=== PATIENT | male | born 1950 | race Caucasian/White ===

== ENCOUNTER → 2016-11-25 | Outpatient (CLI) | payer OTHER ==
[2016-11-25 11:00] LABS: ANION GAP 5 MEQ/L (8-16); BLOOD UREA NITROGEN 14 MG/DL (7-18); CALCIUM LEVEL 8.8 MG/DL (8.8-10.2); CARBON DIOXIDE LEVEL 35 MEQ/L (21-32); CHLORIDE LEVEL 103 MEQ/L (98-107); FREE T4 1.16 NG/DL (0.76-1.46); GLOMERULAR FILTRATION RATE > 60.0 (>49); GLUCOSE, FASTING 80 MG/DL (80-110); POTASSIUM SERUM 3.8 MEQ/L (3.5-5.1); SODIUM LEVEL 143 MEQ/L (136-145)
[2016-11-25 11:15] LABS: CORTISOL BASELINE 21.5 UG/DL (4.3-22.4)
== END ==
LOC: M LAB 09:46
PROVIDERS: ATTEND Internal Medicine Endocrinology, Diabetes & Metabolism
DX: E23.0 Hypopituitarism (principal)

== ENCOUNTER → 2017-05-28 | Outpatient (CLI) | payer OTHER ==
[~2017-05-28] MED LIST: ALPR2TAB3 PO; ANDR1.62 TD; ASPI81TA85 PO; B-12100T2 PO; BUPR10TASR PO; DESM1TAB4 PO; DHEA50CA PO; HYDR-3291 PO; KLON1TAB PO; KRIL1CAP6 PO; LEVO10VL PO; LIPI20TA PO
[2017-05-28 09:46] LABS: ANION GAP 9 MEQ/L (8-16); BLOOD UREA NITROGEN 16 MG/DL (7-18); CARBON DIOXIDE LEVEL 26 MEQ/L (21-32); CHLORIDE LEVEL 105 MEQ/L (98-107); CREATININE FOR GFR 1.19 MG/DL (0.70-1.30); FREE T4 1.21 NG/DL (0.76-1.46); GLOMERULAR FILTRATION RATE > 60.0 (>49); GLUCOSE, FASTING 98 MG/DL (80-110); POTASSIUM SERUM 4.5 MEQ/L (3.5-5.1); SODIUM LEVEL 140 MEQ/L (136-145)
== END ==
LOC: M LAB 08:11
PROVIDERS: ATTEND Internal Medicine Endocrinology, Diabetes & Metabolism
DX: E23.0 Hypopituitarism (principal)

== ENCOUNTER → 2017-06-28 | Outpatient (REF) | payer OTHER | LOC: M LAB REF 17:43 | PROVIDERS: ATTEND Surgery | DX: D22.62 Melanocytic nevi of left upper limb, including shoulder (principal) ==

== ENCOUNTER → 2017-07-01 | Outpatient (REF) | payer OTHER | LOC: M LAB REF 12:02 | PROVIDERS: ATTEND Family Medicine | DX: E29.1 Testicular hypofunction (principal) ==

== ENCOUNTER 2017-08-09 04:22 | Emergency (ER) | payer OTHER ==
[~2017-08-09] VITALS: Ht 162.6 cm; Wt 77.0 kg
[2017-08-09] MEDS ORDERED: ALPR2TAB3 PO (04:39)
[2017-08-09] MEDS ORDERED: ONDANSETRON 4MG/2ML VIAL (J2405) IV ONE (04:45)
[2017-08-09] MEDS ORDERED: KRIL1CAP6 PO (04:48)
[2017-08-09] MEDS ORDERED: BUPR10TASR PO (04:48)
[2017-08-09] MEDS ORDERED: B-12100T2 PO (04:48)
[2017-08-09] MEDS ORDERED: LEVO10VL PO (04:48)
[2017-08-09] MEDS ORDERED: ASPI81TA85 PO (04:48)
[2017-08-09] MEDS ORDERED: DESM1TAB4 PO (04:48)
[2017-08-09] MEDS ORDERED: ANDR1.62 TD (04:48)
[2017-08-09] MEDS ORDERED: HYDR-3291 PO ×2 (04:48)
[2017-08-09] MEDS ORDERED: LIPI20TA PO (04:48)
[2017-08-09] MEDS ORDERED: KLON1TAB PO (04:48)
[2017-08-09] MEDS ORDERED: DHEA50CA PO (04:48)
[2017-08-09 04:59] LABS: BASO % 0.1 % (0.0-1.0); IMMATURE GRANULOCYTE % 0.5 % (0-0); LYMPH # 1.1 10^3/uL (1.5-4.5); LYMPH % 12.2 % (24.0-44.0); MEAN CORPUSCULAR HEMOGLOBIN 30.7 pg (27.0-33.0); MEAN CORPUSCULAR VOLUME 87.7 fl (80.0-96.0); MONO # 0.1 10^3/uL (0.0-0.8); MONO % 1.5 % (0.0-5.0); NEUTROPHILS % 85.7 % (36.0-66.0); PLATELET COUNT, AUTOMATED 280 10^3/uL (150-450); RED CELL DISTRIBUTION WIDTH 12.4 % (11.5-14.5); WHITE BLOOD COUNT 9.3 10^3/uL (4.0-10.0)
[2017-08-09] MEDS: MORPHINE 4 MG/ML 1ML SYRINGE IV PRN ×2 (04:59→05:35)
[2017-08-09 05:14] LABS: INR 0.96
[2017-08-09 05:22] LABS: ANION GAP 10 MEQ/L (8-16); BLOOD UREA NITROGEN 19 MG/DL (7-18); CALCIUM LEVEL 8.7 MG/DL (8.8-10.2); CARBON DIOXIDE LEVEL 27 MEQ/L (21-32); CHLORIDE LEVEL 106 MEQ/L (98-107); CREATININE FOR GFR 1.14 MG/DL (0.70-1.30); GLOMERULAR FILTRATION RATE > 60.0 (>49); GLUCOSE, FASTING 163 MG/DL (80-110); POTASSIUM SERUM 3.7 MEQ/L (3.5-5.1); SODIUM LEVEL 143 MEQ/L (136-145)
[2017-08-09] MEDS ORDERED: NS 1,000 ML IV ONE (05:30)
[2017-08-09] MEDS ORDERED: HYDROmorphone HCL 1 MG/ML SYRINGE (J1170) IV PRN (06:00)
[2017-08-09] MEDS ORDERED: METOCLOPRAMIDE INJ 10MG/2ML VIAL (J2765) IV ONE (06:00)
[2017-08-09] MEDS ORDERED: diphenhydrAMINE INJ 50MG/ML VIAL (J1200) IV ONE (06:00)
[2017-08-09] MEDS ORDERED: KETOROLAC 30 MG/ML VIAL (J1885) IV ONE (06:00)
[2017-08-09] MEDS ORDERED: dexameTHASONE 20 MG/5 ML VIAL (J1100) IV ONE (06:00)
[2017-08-09] MEDS ORDERED: OXYCODONE/APAP 5MG/325MG(BULK FOR ED) 1 TABLET PO ONE (07:00)
--- NOTE | 2017-08-09 07:21 | REPUSA ---
CLINICAL HISTORY: Headaches. Recent sinus surgery. TECHNIQUE: Multiple axial brain CT scan sections were obtained from base to vertex without contrast a dministration. COMMENTS: The study shows normal configuration of sella turcica. There are no intra or extra-axial collections. There is no mass effect or midline shift. There is no evidence of hematoma formation. No hydrocephal us is present. No abnormal calcifications are noted. No significant abnormalities are seen either in the posterior fossa or supratentorial compartment. The sinuses and mastoid air cells are patent. IMPRESSION: No evidence of acute intracranial pathology. Thank you for your kind referral of this patient.
[2017-08-09 07:26] VITALS: BP 111/55
== END 2017-08-09 07:28 | disposition home or self-care (01) ==
LOC: M ED 04:22
DX: R51 Headache (principal); Z79.82 Long term (current) use of aspirin; Z79.899 Other long term (current) drug therapy; Z88.0 Allergy status to penicillin
CPT/HCPCS: 70450; 80048; 85025; 85610; 85730; 96374; 96375; 99284; J1100; J1170; J1200; J1885; J2405; J2765

== ENCOUNTER 2017-10-28 17:02 | Emergency (ER) | payer OTHER, MEDICARE ==
[2017-10-28] MEDS: OXYCODONE/APAP 5MG/325MG(BULK FOR ED) 1 TABLET PO (20:53)
== END 2017-10-28 21:02 | disposition home or self-care (01) ==
LOC: M ED 17:02
DX: R51 Headache (principal); I10 Essential (primary) hypertension; E03.9 Hypothyroidism, unspecified; F41.9 Anxiety disorder, unspecified; F32.9 Major depressive disorder, single episode, unspecified; Z86.018 Personal history of other benign neoplasm; E78.00 Pure hypercholesterolemia, unspecified; Z79.82 Long term (current) use of aspirin; Z79.899 Other long term (current) drug therapy; Z88.0 Allergy status to penicillin
CPT/HCPCS: 70450

== ENCOUNTER → 2017-11-12 | Outpatient (CLI) | payer OTHER ==
[2017-11-12 11:14] LABS: HEMATOCRIT 48.2 % (42.0-52.0); HEMOGLOBIN 16.5 g/dl (14.0-18.0); MEAN CORPUSCULAR HGB CONC 34.2 g/dl (32.0-36.5); MEAN CORPUSCULAR VOLUME 87.6 fl (80.0-96.0); PLATELET COUNT, AUTOMATED 334 10^3/uL (150-450); RED CELL DISTRIBUTION WIDTH 12.7 % (11.5-14.5); WHITE BLOOD COUNT 7.9 10^3/uL (4.0-10.0)
[2017-11-12 11:56] LABS: ALBUMIN 3.9 GM/DL (3.2-5.2); ALBUMIN/GLOBULIN RATIO 1.56 (1.00-1.93); ALKALINE PHOSPHATASE 115 U/L (45-117); ALT/SGPT 27 U/L (12-78); ANION GAP 7 MEQ/L (8-16); AST/SGOT 13 U/L (7-37); BILIRUBIN,TOTAL 0.5 MG/DL (0.2-1.0); BLOOD UREA NITROGEN 18 MG/DL (7-18); CALCIUM LEVEL 9.3 MG/DL (8.8-10.2); CARBON DIOXIDE LEVEL 34 MEQ/L (21-32); CHLORIDE LEVEL 102 MEQ/L (98-107); CREATININE FOR GFR 1.19 MG/DL (0.70-1.30); GLOMERULAR FILTRATION RATE > 60.0 (>49); GLUCOSE, FASTING 105 MG/DL (70-100); POTASSIUM SERUM 3.9 MEQ/L (3.5-5.1); SODIUM LEVEL 143 MEQ/L (136-145); TOTAL PROTEIN 6.4 GM/DL (6.4-8.2)
== END ==
LOC: M LAB 09:18
DX: C7B.8 Other secondary neuroendocrine tumors (principal)
CPT/HCPCS: 80053

== ENCOUNTER → 2017-11-12 | Outpatient (CLI) | payer OTHER ==
[2017-11-14 10:10] LABS: CORTISOL AM 7.4 UG/DL (4.3-22.4)
[2017-11-16 00:06] LABS: ADRENOCORTICOTROPHIC HORMONE 74.6 pg/mL (7.2-63.3)
== END ==
LOC: M LAB 09:15
DX: E23.0 Hypopituitarism (principal)
CPT/HCPCS: 82533

== ENCOUNTER → 2017-12-08 | Outpatient (CLI) | payer OTHER ==
[2017-12-08 09:40] LABS: ANION GAP 5 MEQ/L (8-16); BLOOD UREA NITROGEN 19 MG/DL (7-18); CALCIUM LEVEL 8.5 MG/DL (8.8-10.2); CARBON DIOXIDE LEVEL 35 MEQ/L (21-32); CHLORIDE LEVEL 104 MEQ/L (98-107); CREATININE FOR GFR 1.06 MG/DL (0.70-1.30); FREE T4 0.82 NG/DL (0.76-1.46); GLOMERULAR FILTRATION RATE > 60.0 (>49); GLUCOSE, FASTING 93 MG/DL (70-100); POTASSIUM SERUM 3.8 MEQ/L (3.5-5.1); SODIUM LEVEL 144 MEQ/L (136-145)
[2017-12-08 09:47] LABS: TESTOSTERONE 511 NG/DL (241-827)
== END ==
LOC: M LAB 08:55
DX: E23.0 Hypopituitarism (principal)

== ENCOUNTER 2018-04-09 08:53 | Emergency (ER) | payer OTHER ==
[2018-04-09] MEDS: ONDANSETRON 4MG/2ML VIAL (J2405) IV ×2 (09:48→11:04)
[2018-04-09] MEDS: METOCLOPRAMIDE INJ 10MG/2ML VIAL (J2765) IV (09:50)
[2018-04-09] MEDS: KETOROLAC 30 MG/ML VIAL (J1885) IV (09:50)
[2018-04-09] MEDS: NS 1,000 ML IV (09:51)
[2018-04-09] MEDS: diphenhydrAMINE INJ 50MG/ML VIAL (J1200) IM (09:58)
[2018-04-09] MEDS: diphenhydrAMINE INJ 50MG/ML VIAL (J1200) IV (10:01)
[2018-04-09] MEDS: DOXYCYCLINE HYCLATE 100 MG TAB PO (10:45)
[2018-04-09] MEDS: MORPHINE 4 MG/ML 1ML VIAL/SYRINGE (J2270) IV (11:04)
== END 2018-04-09 11:53 | disposition home or self-care (01) ==
LOC: M ED 08:53
DX: R51 Headache (principal); J01.90 Acute sinusitis, unspecified; Z88.0 Allergy status to penicillin; Z79.899 Other long term (current) drug therapy
CPT/HCPCS: J2270

== ENCOUNTER 2018-04-30 02:55 | Emergency (ER) | payer OTHER ==
[2018-04-30] MEDS: KETOROLAC 30 MG/ML VIAL (J1885) IV (03:30)
[2018-04-30] MEDS: diphenhydrAMINE INJ 50MG/ML VIAL (J1200) IV (03:30)
[2018-04-30] MEDS: METOCLOPRAMIDE INJ 10MG/2ML VIAL (J2765) IV (03:30)
[2018-04-30] MEDS: NS 1,000 ML IV (03:30)
[2018-04-30] MEDS: HYDROMORPHONE HCL 0.5 MG/ 0.5 ML SYRINGE (J1170 PER 1) IV (04:15)
== END 2018-04-30 06:40 | disposition home or self-care (01) ==
LOC: M ED 02:55
DX: R51 Headache (principal); G43.909 Migraine, unspecified, not intractable, without status migrainosus; Z79.82 Long term (current) use of aspirin; Z79.899 Other long term (current) drug therapy; Z88.0 Allergy status to penicillin
CPT/HCPCS: J1200

== ENCOUNTER 2018-05-10 15:46 | Emergency (ER) | payer OTHER ==
[2018-05-10] MEDS: METOCLOPRAMIDE INJ 10MG/2ML VIAL (J2765) IV (16:41)
[2018-05-10] MEDS: NS 1,000 ML IV (16:41)
[2018-05-10] MEDS: HYDROMORPHONE HCL 0.5 MG/ 0.5 ML SYRINGE (J1170 PER 1) IV (16:41)
== END 2018-05-10 17:39 | disposition home or self-care (01) ==
LOC: M ED 15:46
DX: R51 Headache (principal); D44.3 Neoplasm of uncertain behavior of pituitary gland; H57.11 Ocular pain, right eye; Z88.0 Allergy status to penicillin; Z79.899 Other long term (current) drug therapy; Z79.82 Long term (current) use of aspirin
CPT/HCPCS: J2765

== ENCOUNTER → 2018-06-05 | Outpatient (REF) | payer OTHER ==
[2018-06-05 16:17] LABS: ANION GAP 7 MEQ/L (8-16); BLOOD UREA NITROGEN 25 MG/DL (7-18); CALCIUM LEVEL 8.8 MG/DL (8.8-10.2); CARBON DIOXIDE LEVEL 31 MEQ/L (21-32); CHLORIDE LEVEL 109 MEQ/L (98-107); CREATININE FOR GFR 1.21 MG/DL (0.70-1.30); FREE T4 0.79 NG/DL (0.76-1.46); GLOMERULAR FILTRATION RATE > 60.0 (>49); GLUCOSE, FASTING 122 MG/DL (70-100); POTASSIUM SERUM 4.2 MEQ/L (3.5-5.1); SODIUM LEVEL 147 MEQ/L (136-145)
[2018-06-05 16:23] LABS: TESTOSTERONE 182 NG/DL (241-827)
== END ==
LOC: M LABDRAW1 14:21
DX: E23.0 Hypopituitarism (principal)

== ENCOUNTER → 2018-07-24 | Outpatient (CLI) | payer OTHER ==
[2018-07-24 11:09] LABS: ANION GAP 5 MEQ/L (8-16); BLOOD UREA NITROGEN 13 MG/DL (7-18); CALCIUM LEVEL 8.6 MG/DL (8.8-10.2); CARBON DIOXIDE LEVEL 34 MEQ/L (21-32); CHLORIDE LEVEL 105 MEQ/L (98-107); CREATININE FOR GFR 1.05 MG/DL (0.70-1.30); GLOMERULAR FILTRATION RATE > 60.0 (>49); GLUCOSE, FASTING 87 MG/DL (70-100); POTASSIUM SERUM 3.9 MEQ/L (3.5-5.1); SODIUM LEVEL 144 MEQ/L (136-145)
[2018-07-24 12:09] LABS: OSMOLALITY SERUM 294 MOSM/KG (280-301)
== END ==
LOC: M LAB 09:34
DX: E03.9 Hypothyroidism, unspecified (principal)
CPT/HCPCS: 83930

== ENCOUNTER → 2018-08-23 | Outpatient (CLI) | payer OTHER ==
[2018-08-23 17:23] LABS: BLOOD UREA NITROGEN 18 MG/DL (7-18)
[2018-08-23 17:23] LABS: CREATININE FOR GFR 1.13 MG/DL (0.70-1.30); GLOMERULAR FILTRATION RATE > 60.0 (>49)
== END ==
LOC: M LAB 15:59
DX: D35.2 Benign neoplasm of pituitary gland (principal)
CPT/HCPCS: 82565

== ENCOUNTER → 2018-11-18 | Outpatient (CLI) | payer OTHER ==
[~2018-11-18] MED LIST changes: +AFRI0.056; +BUSP30TA PO; +CLAR1TAB2 PO; +DESM0.1T2 PO; -DESM1TAB4 PO; +DOXY100C37 PO; +EXCETAB81 PO; +IBUP80TA PO; +LIOT25TA2 PO; +LISI10TA2; +LYRI150C PO; +PRIS100T PO; +RANI150T PO; +TRAM50TA2 PO; +ZOFR4TAB14 PO
[2018-11-18 13:17] LABS: BLOOD UREA NITROGEN 17 MG/DL (7-18); CALCIUM LEVEL 8.9 MG/DL (8.8-10.2); CARBON DIOXIDE LEVEL 30 MEQ/L (21-32); CHLORIDE LEVEL 105 MEQ/L (98-107); CREATININE FOR GFR 1.16 MG/DL (0.70-1.30); GLOMERULAR FILTRATION RATE > 60.0 (>49); GLUCOSE, FASTING 89 MG/DL (70-100); POTASSIUM SERUM 4.4 MEQ/L (3.5-5.1); SODIUM LEVEL 141 MEQ/L (136-145)
[2018-11-20 09:34] LABS: TESTOSTERONE 561 NG/DL (241-827)
== END ==
LOC: M LAB 12:31
PROVIDERS: ATTEND Internal Medicine Endocrinology, Diabetes & Metabolism
DX: E03.9 Hypothyroidism, unspecified (principal)

== ENCOUNTER → 2018-12-07 | Outpatient (CLI) | payer OTHER ==
[2018-12-07 15:20] LABS: BLOOD UREA NITROGEN 27 MG/DL (7-18); CREATININE FOR GFR 1.25 MG/DL (0.70-1.30); GLOMERULAR FILTRATION RATE > 60.0 (>49)
== END ==
LOC: M LAB 14:25
PROVIDERS: ATTEND Neurological Surgery
DX: D35.2 Benign neoplasm of pituitary gland (principal)

== ENCOUNTER → 2019-04-07 | Outpatient (CLI) | payer OTHER ==
[~2019-04-07] MED LIST changes: +D-50CAP PO; -HYDR-3291 PO; +HYDR-4513 PO; +ROXI1TAB2 PO; +VIAG100T PO
== END ==
LOC: M LAB 13:42
PROVIDERS: ATTEND Internal Medicine
DX: E87.1 Hypo-osmolality and hyponatremia (principal)

== ENCOUNTER → 2019-04-08 | Outpatient (CLI) | payer OTHER | LOC: M LAB 13:11 | PROVIDERS: ATTEND Internal Medicine | DX: E87.1 Hypo-osmolality and hyponatremia (principal); B34.9 Viral infection, unspecified ==

== ENCOUNTER → 2019-04-23 | Outpatient (CLI) | payer OTHER ==
[2019-04-23 16:49] LABS: HEMATOCRIT 42.8 % (42.0-52.0); HEMOGLOBIN 14.9 g/dl (13.5-17.5); MEAN CORPUSCULAR HEMOGLOBIN 30.2 pg (27.0-33.0); MEAN CORPUSCULAR HGB CONC 34.8 g/dl (32.0-36.5); MEAN CORPUSCULAR VOLUME 86.8 fl (80.0-96.0); PLATELET COUNT, AUTOMATED 144 10^3/uL (150-450); RED BLOOD COUNT 4.93 10^6/uL (4.30-6.10); WHITE BLOOD COUNT 9.6 10^3/uL (4.0-10.0)
[2019-04-23 17:12] LABS: CALCIUM LEVEL 8.5 MG/DL (8.8-10.2); CREATININE FOR GFR 1.49 MG/DL (0.70-1.30); FREE T4 0.84 NG/DL (0.76-1.46); GLOMERULAR FILTRATION RATE 50.1 (>49)
== END ==
LOC: M LAB 16:13
PROVIDERS: ATTEND Internal Medicine Endocrinology, Diabetes & Metabolism
DX: E03.9 Hypothyroidism, unspecified (principal)

== ENCOUNTER → 2019-04-30 | Outpatient (REF) | payer OTHER ==
[2019-04-30 12:30] LABS: BLOOD UREA NITROGEN 40 MG/DL (7-18); CALCIUM LEVEL 9.4 MG/DL (8.8-10.2); CARBON DIOXIDE LEVEL 33 MEQ/L (21-32); CHLORIDE LEVEL 97 MEQ/L (98-107); CREATININE FOR GFR 1.01 MG/DL (0.70-1.30); GLOMERULAR FILTRATION RATE > 60.0 (>49); GLUCOSE, FASTING 102 MG/DL (70-100); POTASSIUM SERUM 4.1 MEQ/L (3.5-5.1); SODIUM LEVEL 137 MEQ/L (136-145)
[2019-04-30 12:53] LABS: OSMOLALITY SERUM 294 MOSM/KG (280-301)
== END ==
LOC: M LABDRAW1 10:52
PROVIDERS: ATTEND Internal Medicine Endocrinology, Diabetes & Metabolism
DX: D49.7 Neoplasm of unspecified behavior of endocrine glands and other parts of nervous system (principal)

== ENCOUNTER → 2019-05-03 | Outpatient (REF) | payer OTHER ==
[2019-05-03 17:55] LABS: BLOOD UREA NITROGEN 32 MG/DL (7-18); CALCIUM LEVEL 8.1 MG/DL (8.8-10.2); CARBON DIOXIDE LEVEL 28 MEQ/L (21-32); CHLORIDE LEVEL 97 MEQ/L (98-107); CREATININE FOR GFR 0.94 MG/DL (0.70-1.30); GLOMERULAR FILTRATION RATE > 60.0 (>49); GLUCOSE, FASTING 115 MG/DL (70-100); POTASSIUM SERUM 4.2 MEQ/L (3.5-5.1); SODIUM LEVEL 134 MEQ/L (136-145)
[2019-05-03 18:31] LABS: OSMOLALITY SERUM 286 MOSM/KG (280-301)
== END ==
LOC: M LABDRAW1 11:49
PROVIDERS: ATTEND Internal Medicine Endocrinology, Diabetes & Metabolism
DX: D49.7 Neoplasm of unspecified behavior of endocrine glands and other parts of nervous system (principal)

== ENCOUNTER → 2019-05-08 | Outpatient (REF) | payer OTHER ==
[2019-05-08 16:45] LABS: OSMOLALITY SERUM 288 MOSM/KG (280-301)
[2019-05-08 16:56] LABS: BLOOD UREA NITROGEN 27 MG/DL (7-18); CALCIUM LEVEL 8.1 MG/DL (8.8-10.2); CARBON DIOXIDE LEVEL 30 MEQ/L (21-32); CHLORIDE LEVEL 101 MEQ/L (98-107); CREATININE FOR GFR 0.92 MG/DL (0.70-1.30); GLOMERULAR FILTRATION RATE > 60.0 (>49); GLUCOSE, FASTING 115 MG/DL (70-100); POTASSIUM SERUM 3.8 MEQ/L (3.5-5.1); SODIUM LEVEL 138 MEQ/L (136-145)
== END ==
LOC: M LABDRAW1 11:29
PROVIDERS: ATTEND Internal Medicine Endocrinology, Diabetes & Metabolism
DX: D49.7 Neoplasm of unspecified behavior of endocrine glands and other parts of nervous system (principal)

== ENCOUNTER → 2019-05-08 | Outpatient (REF) | payer OTHER ==
[2019-05-08 17:24] LABS: HEMATOCRIT 33.9 % (42.0-52.0); HEMOGLOBIN 11.4 g/dl (13.5-17.5); MEAN CORPUSCULAR HEMOGLOBIN 29.9 pg (27.0-33.0); MEAN CORPUSCULAR HGB CONC 33.6 g/dl (32.0-36.5); PLATELET COUNT, AUTOMATED 108 10^3/uL (150-450); RED BLOOD COUNT 3.81 10^6/uL (4.30-6.10); WHITE BLOOD COUNT 6.1 10^3/uL (4.0-10.0)
[2019-05-08 17:55] LABS: ALBUMIN 2.7 GM/DL (3.2-5.2); ALT/SGPT 122 U/L (12-78); BILIRUBIN,TOTAL 0.5 MG/DL (0.2-1.0); BLOOD UREA NITROGEN 27 MG/DL (7-18); CALCIUM LEVEL 8.1 MG/DL (8.8-10.2); CARBON DIOXIDE LEVEL 31 MEQ/L (21-32); CHLORIDE LEVEL 102 MEQ/L (98-107); CREATININE FOR GFR 0.93 MG/DL (0.70-1.30); GLOMERULAR FILTRATION RATE > 60.0 (>49); GLUCOSE, FASTING 116 MG/DL (70-100); POTASSIUM SERUM 3.9 MEQ/L (3.5-5.1); SODIUM LEVEL 139 MEQ/L (136-145); TOTAL PROTEIN 4.8 GM/DL (6.4-8.2)
[2019-05-08 20:53] LABS: ATYPICAL LYMPH 6 % (0-5); LYMPHOCYTES 24 % (16-52); METAMYELOCYTES 1 % (0-0); MONOCYTES 2 % (0-8); MYELOCYTES 4 % (0-0); NEUTROPHILS 61 % (35-75); PROMYELOCYTES 1 % (0-0)
[2019-05-08 20:54] LABS: ANISOCYTOSIS 3+
[2019-05-08 20:55] LABS: PLATELET ESTIMATE DECREASED (NORMAL); POLYCHROMASIA 1+
[2019-05-08 20:56] LABS: TEAR DROP CELLS 1+
== END ==
LOC: M LABDRAW1 11:32
DX: D35.2 Benign neoplasm of pituitary gland (principal)

== ENCOUNTER → 2019-05-15 | Outpatient (REF) | payer OTHER ==
[2019-05-15 16:04] LABS: ALBUMIN 2.6 GM/DL (3.2-5.2); ALT/SGPT 63 U/L (12-78); BILIRUBIN,TOTAL 0.6 MG/DL (0.2-1.0); BLOOD UREA NITROGEN 19 MG/DL (7-18); CALCIUM LEVEL 7.6 MG/DL (8.8-10.2); CARBON DIOXIDE LEVEL 30 MEQ/L (21-32); CHLORIDE LEVEL 100 MEQ/L (98-107); GLOMERULAR FILTRATION RATE > 60.0 (>49); GLUCOSE, FASTING 158 MG/DL (70-100); POTASSIUM SERUM 3.6 MEQ/L (3.5-5.1); SODIUM LEVEL 138 MEQ/L (136-145)
[2019-05-15 16:13] LABS: HEMOGLOBIN 10.6 g/dl (13.5-17.5); MEAN CORPUSCULAR HEMOGLOBIN 30.5 pg (27.0-33.0); MEAN CORPUSCULAR HGB CONC 33.1 g/dl (32.0-36.5); PLATELET COUNT, AUTOMATED 124 10^3/uL (150-450); RED BLOOD COUNT 3.48 10^6/uL (4.30-6.10); WHITE BLOOD COUNT 4.2 10^3/uL (4.0-10.0)
[2019-05-15 19:00] LABS: LYMPHOCYTES 38 % (16-52); METAMYELOCYTES 1 % (0-0); MONOCYTES 2 % (0-8); MYELOCYTES 1 % (0-0); NEUTROPHILS 52 % (35-75)
[2019-05-15 19:01] LABS: ANISOCYTOSIS 2+; PLATELET ESTIMATE DECREASED (NORMAL)
== END ==
LOC: M LABDRAW1 15:17
DX: D35.2 Benign neoplasm of pituitary gland (principal)

== ENCOUNTER → 2019-05-15 | Outpatient (REF) | payer OTHER ==
[2019-05-15 15:50] LABS: OSMOLALITY SERUM 285 MOSM/KG (280-301)
[2019-05-15 16:01] LABS: BLOOD UREA NITROGEN 20 MG/DL (7-18); CALCIUM LEVEL 7.7 MG/DL (8.8-10.2); CARBON DIOXIDE LEVEL 30 MEQ/L (21-32); CHLORIDE LEVEL 100 MEQ/L (98-107); CREATININE FOR GFR 1.04 MG/DL (0.70-1.30); FREE T4 0.89 NG/DL (0.76-1.46); GLOMERULAR FILTRATION RATE > 60.0 (>49); GLUCOSE, FASTING 156 MG/DL (70-100); POTASSIUM SERUM 3.4 MEQ/L (3.5-5.1); SODIUM LEVEL 138 MEQ/L (136-145)
[2019-05-15 16:10] LABS: TESTOSTERONE 122 NG/DL (241-827)
== END ==
LOC: M LABDRAW1 15:22
PROVIDERS: ATTEND Internal Medicine Endocrinology, Diabetes & Metabolism
DX: E03.9 Hypothyroidism, unspecified (principal); E29.1 Testicular hypofunction; E23.2 Diabetes insipidus

== ENCOUNTER → 2019-06-16 | Outpatient (CLI) | payer OTHER ==
[~2019-06-16] MED LIST changes: +LISI10TA15; -LISI10TA2
[2019-06-16 11:32] LABS: HEMATOCRIT 28.6 % (42.0-52.0); HEMOGLOBIN 9.1 g/dl (13.5-17.5); MEAN CORPUSCULAR HEMOGLOBIN 32.9 pg (27.0-33.0); MEAN CORPUSCULAR HGB CONC 31.8 g/dl (32.0-36.5); MEAN CORPUSCULAR VOLUME 103.2 fl (80.0-96.0); PLATELET COUNT, AUTOMATED 221 10^3/uL (150-450); RED BLOOD COUNT 2.77 10^6/uL (4.30-6.10); WHITE BLOOD COUNT 6.2 10^3/uL (4.0-10.0)
[2019-06-16 11:36] LABS: BLOOD UREA NITROGEN 11 MG/DL (7-18); CALCIUM LEVEL 8.4 MG/DL (8.8-10.2); CARBON DIOXIDE LEVEL 29 MEQ/L (21-32); CHLORIDE LEVEL 108 MEQ/L (98-107); CREATININE FOR GFR 0.94 MG/DL (0.70-1.30); GLOMERULAR FILTRATION RATE > 60.0 (>49); GLUCOSE, FASTING 119 MG/DL (70-100); OSMOLALITY SERUM 287 MOSM/KG (280-301); POTASSIUM SERUM 3.3 MEQ/L (3.5-5.1); SODIUM LEVEL 144 MEQ/L (136-145)
[2019-06-19 09:08] LABS: TESTOSTERONE 179 NG/DL (241-827)
== END ==
LOC: M LAB 10:23
PROVIDERS: ATTEND Internal Medicine Endocrinology, Diabetes & Metabolism
DX: E03.9 Hypothyroidism, unspecified (principal)

== ENCOUNTER → 2019-06-16 | Outpatient (CLI) | payer OTHER ==
[2019-06-16 11:16] LABS: HEMATOCRIT 27.8 % (42.0-52.0); HEMOGLOBIN 8.8 g/dl (13.5-17.5); MEAN CORPUSCULAR HEMOGLOBIN 31.9 pg (27.0-33.0); MEAN CORPUSCULAR HGB CONC 31.7 g/dl (32.0-36.5); MEAN CORPUSCULAR VOLUME 100.7 fl (80.0-96.0); PLATELET COUNT, AUTOMATED 215 10^3/uL (150-450); RED BLOOD COUNT 2.76 10^6/uL (4.30-6.10); WHITE BLOOD COUNT 6.4 10^3/uL (4.0-10.0)
[2019-06-16 11:36] LABS: BLOOD UREA NITROGEN 10 MG/DL (7-18); CALCIUM LEVEL 7.8 MG/DL (8.8-10.2); CARBON DIOXIDE LEVEL 28 MEQ/L (21-32); CHLORIDE LEVEL 108 MEQ/L (98-107); GLOMERULAR FILTRATION RATE > 60.0 (>49); GLUCOSE, FASTING 117 MG/DL (70-100); POTASSIUM SERUM 3.3 MEQ/L (3.5-5.1); SODIUM LEVEL 143 MEQ/L (136-145)
== END ==
LOC: M LAB 10:29
DX: E23.0 Hypopituitarism (principal)

== ENCOUNTER → 2019-07-08 | Outpatient (CLI) | payer OTHER ==
[~2019-07-08] MED LIST changes: +CORT10TA PO; +DHEA50TA2 PO; +LYRI75CA PO; +QUET1TAB7 PO
[2019-07-08 13:01] LABS: HEMATOCRIT 35.1 % (42.0-52.0); HEMOGLOBIN 11.3 g/dl (13.5-17.5); MEAN CORPUSCULAR HEMOGLOBIN 32.3 pg (27.0-33.0); MEAN CORPUSCULAR HGB CONC 32.2 g/dl (32.0-36.5); MEAN CORPUSCULAR VOLUME 100.3 fl (80.0-96.0); PLATELET COUNT, AUTOMATED 245 10^3/uL (150-450); WHITE BLOOD COUNT 6.4 10^3/uL (4.0-10.0)
[2019-07-08 13:21] LABS: CALCIUM LEVEL 8.5 MG/DL (8.8-10.2); CREATININE FOR GFR 1.38 MG/DL (0.70-1.30); GLOMERULAR FILTRATION RATE 54.5 (>49); POTASSIUM SERUM 3.8 MEQ/L (3.5-5.1)
== END ==
LOC: M LAB 12:29
DX: E23.0 Hypopituitarism (principal)

== ENCOUNTER → 2019-07-15 | Outpatient (CLI) | payer OTHER ==
[2019-07-15 12:47] LABS: BASO # 0.1 10^3/uL (0.0-0.2); BASO % 0.8 % (0.0-1.0); EOS # 0.2 10^3/uL (0.0-0.5); EOS % 3.8 % (0.0-3.0); HEMATOCRIT 37.3 % (42.0-52.0); HEMOGLOBIN 12.1 g/dl (13.5-17.5); LYMPH # 1.2 10^3/uL (1.5-5.0); MEAN CORPUSCULAR HEMOGLOBIN 31.3 pg (27.0-33.0); MEAN CORPUSCULAR HGB CONC 32.4 g/dl (32.0-36.5); MEAN CORPUSCULAR VOLUME 96.4 fl (80.0-96.0); MONO # 0.6 10^3/uL (0.0-0.8); MONO % 9.7 % (0.0-5.0); NEUTROPHILS # 4.2 10^3/uL (1.5-8.5); NEUTROPHILS % 65.7 % (36.0-66.0); PLATELET COUNT, AUTOMATED 233 10^3/uL (150-450); RED BLOOD COUNT 3.87 10^6/uL (4.30-6.10); WHITE BLOOD COUNT 6.3 10^3/uL (4.0-10.0)
[2019-07-15 13:22] LABS: ALBUMIN 3.2 GM/DL (3.2-5.2); ALT/SGPT 22 U/L (12-78); BILIRUBIN,TOTAL 0.4 MG/DL (0.2-1.0); BLOOD UREA NITROGEN 15 MG/DL (7-18); CALCIUM LEVEL 9.3 MG/DL (8.8-10.2); CARBON DIOXIDE LEVEL 30 MEQ/L (21-32); CHLORIDE LEVEL 106 MEQ/L (98-107); CREATININE FOR GFR 1.13 MG/DL (0.70-1.30); GLOMERULAR FILTRATION RATE > 60.0 (>49); GLUCOSE, FASTING 149 MG/DL (70-100); POTASSIUM SERUM 3.9 MEQ/L (3.5-5.1); SODIUM LEVEL 142 MEQ/L (136-145); TOTAL PROTEIN 5.9 GM/DL (6.4-8.2)
== END ==
LOC: M LAB 12:07
DX: D49.7 Neoplasm of unspecified behavior of endocrine glands and other parts of nervous system (principal)

== ENCOUNTER 2019-07-24 10:00 | Day surgery (SDC) | payer OTHER ==
[~2019-07-24] VITALS: Ht 162.6 cm; Wt 88.5 kg
[~2019-07-24 10:00] MED LIST changes: +LIDOCAINE 2% INJ 100 MG/5 ML SDV (FOR ANES.) As Ordered ONE; -LIOT25TA2 PO; +LIOT25TA8 PO; +NS 1,000 ML IV ONE; +propofoL 200 MG/20 ML VIAL As Ordered ONE
--- NOTE | 2019-07-24 11:00 | ROOR ---
Patient Name: Ross Summers Procedure Date: 07/24/2019 10:46 AM Date of : 1950 Age: 69 Room: [facility] Gender: Male Note Status: Finalized Procedure: Upper GI endoscopy Indications: Anemia Providers: Malik OJEDA MD Referring MD: Lino Rendon MD, Pam Veronica MD Requesting Provider: Medicines: Monitored Anesthesia Care Complications: No immediate complications. Procedure: Pre-Anesthesia Assessment: - The heart rate, respiratory rate, oxygen saturations, blood pressure, adequacy of pulmonary ventilation, and response to care were monitored throughout the procedure. The Endoscope was introduced through the mouth, and advanced to the third part of duodenum. The upper GI endoscopy was accomplished without difficulty. The patient tolerated the procedure well. Findings: The esophagus was normal. The stomach was normal. The examined duodenum was normal. Impression: - Normal esophagus. - Normal stomach. - Normal examined duodenum. - No specimens collected. Recommendation: - Observe patient's clinical course. - Return to referring physician as previously scheduled. Malik Ojeda MD Malik OJEDA MD 07/24/2019 10:59:58 AM Electronically signed by Malik OJEDA MD Number of Addenda: 0 Note Initiated On: 07/24/2019 10:46 AM Estimated Blood Loss: Estimated blood loss: none.
[2019-07-24 11:25] VITALS: BP 129/67
== END 2019-07-24 11:37 | disposition home or self-care (01) ==
LOC: M OPP 10:00
PROVIDERS: ATTEND Internal Medicine Gastroenterology
DX: D64.9 Anemia, unspecified (principal); I10 Essential (primary) hypertension; E78.5 Hyperlipidemia, unspecified; D35.2 Benign neoplasm of pituitary gland; Z92.21 Personal history of antineoplastic chemotherapy; E03.9 Hypothyroidism, unspecified; K21.9 Gastro-esophageal reflux disease without esophagitis; H11.0 Pterygium of eye; H91.93 Unspecified hearing loss, bilateral; F32.9 Major depressive disorder, single episode, unspecified; F41.9 Anxiety disorder, unspecified; R51 Headache; G47.8 Other sleep disorders; R06.83 Snoring; E86.0 Dehydration; Z92.3 Personal history of irradiation; Z88.0 Allergy status to penicillin; Z79.82 Long term (current) use of aspirin; Z79.899 Other long term (current) drug therapy

== ENCOUNTER → 2019-08-05 | Outpatient (CLI) | payer OTHER ==
[~2019-08-05] MED LIST changes: -LIDOCAINE 2% INJ 100 MG/5 ML SDV (FOR ANES.) As Ordered ONE; -NS 1,000 ML IV ONE; -propofoL 200 MG/20 ML VIAL As Ordered ONE
[2019-08-05 11:55] LABS: BASO % 0.6 % (0.0-1.0); EOS # 0.1 10^3/uL (0.0-0.5); EOS % 2.2 % (0.0-3.0); HEMATOCRIT 42.2 % (42.0-52.0); HEMOGLOBIN 13.8 g/dl (13.5-17.5); LYMPH # 1.3 10^3/uL (1.5-5.0); LYMPH % 25.6 % (24.0-44.0); MEAN CORPUSCULAR HEMOGLOBIN 30.7 pg (27.0-33.0); MEAN CORPUSCULAR HGB CONC 32.7 g/dl (32.0-36.5); MEAN CORPUSCULAR VOLUME 93.8 fl (80.0-96.0); MONO # 0.4 10^3/uL (0.0-0.8); MONO % 7.6 % (0.0-5.0); NEUTROPHILS # 3.2 10^3/uL (1.5-8.5); NEUTROPHILS % 63.4 % (36.0-66.0); PLATELET COUNT, AUTOMATED 288 10^3/uL (150-450)
== END ==
LOC: M LAB 11:31
PROVIDERS: ATTEND Physician Assistant
DX: D49.7 Neoplasm of unspecified behavior of endocrine glands and other parts of nervous system (principal)

== ENCOUNTER → 2019-09-06 | Outpatient (CLI) | payer OTHER ==
[2019-09-06 15:22] LABS: BASO % 0.6 % (0.0-1.0); EOS # 0.2 10^3/uL (0.0-0.5); HEMATOCRIT 42.5 % (42.0-52.0); LYMPH # 1.4 10^3/uL (1.5-5.0); LYMPH % 26.7 % (24.0-44.0); MEAN CORPUSCULAR HEMOGLOBIN 30.3 pg (27.0-33.0); MEAN CORPUSCULAR HGB CONC 32.9 g/dl (32.0-36.5); MONO # 0.5 10^3/uL (0.0-0.8); MONO % 8.9 % (0.0-5.0); NEUTROPHILS # 3.1 10^3/uL (1.5-8.5); NEUTROPHILS % 60.4 % (36.0-66.0); PLATELET COUNT, AUTOMATED 266 10^3/uL (150-450); RED BLOOD COUNT 4.62 10^6/uL (4.30-6.10); WHITE BLOOD COUNT 5.1 10^3/uL (4.0-10.0)
[2019-09-06 15:50] LABS: ALBUMIN 3.3 GM/DL (3.2-5.2); ALT/SGPT 31 U/L (12-78); BILIRUBIN,TOTAL 0.2 MG/DL (0.2-1.0); BLOOD UREA NITROGEN 14 MG/DL (7-18); CALCIUM LEVEL 8.8 MG/DL (8.8-10.2); CARBON DIOXIDE LEVEL 30 MEQ/L (21-32); CHLORIDE LEVEL 104 MEQ/L (98-107); CREATININE FOR GFR 1.19 MG/DL (0.70-1.30); GLOMERULAR FILTRATION RATE > 60.0 (>49); GLUCOSE, FASTING 182 MG/DL (70-100); POTASSIUM SERUM 3.7 MEQ/L (3.5-5.1); SODIUM LEVEL 142 MEQ/L (136-145); TOTAL PROTEIN 5.7 GM/DL (6.4-8.2)
== END ==
LOC: M LAB 14:44
PROVIDERS: ATTEND Psychiatry & Neurology Neurology
DX: D49.7 Neoplasm of unspecified behavior of endocrine glands and other parts of nervous system (principal)

== ENCOUNTER → 2019-09-12 | Outpatient (CLI) | payer OTHER ==
[~2019-09-12] MED LIST changes: +LYRI200C PO; +MAGN400C PO; +ONDA8TAB8 PO; +TEMO1CAP5 PO
[2019-09-12 10:07] LABS: BASO % 0.7 % (0.0-1.0); EOS # 0.2 10^3/uL (0.0-0.5); EOS % 2.7 % (0.0-3.0); HEMATOCRIT 46.3 % (42.0-52.0); HEMOGLOBIN 15.1 g/dl (13.5-17.5); LYMPH # 1.2 10^3/uL (1.5-5.0); LYMPH % 22.1 % (24.0-44.0); MEAN CORPUSCULAR HEMOGLOBIN 29.4 pg (27.0-33.0); MEAN CORPUSCULAR HGB CONC 32.6 g/dl (32.0-36.5); MEAN CORPUSCULAR VOLUME 90.1 fl (80.0-96.0); MONO # 0.5 10^3/uL (0.0-0.8); MONO % 9.8 % (0.0-5.0); NEUTROPHILS # 3.5 10^3/uL (1.5-8.5); PLATELET COUNT, AUTOMATED 241 10^3/uL (150-450); RED BLOOD COUNT 5.14 10^6/uL (4.30-6.10); WHITE BLOOD COUNT 5.5 10^3/uL (4.0-10.0)
[2019-09-12 10:39] LABS: ALBUMIN 3.5 GM/DL (3.2-5.2); ALT/SGPT 27 U/L (12-78); BILIRUBIN,TOTAL 0.4 MG/DL (0.2-1.0); BLOOD UREA NITROGEN 16 MG/DL (7-18); CALCIUM LEVEL 8.8 MG/DL (8.8-10.2); CARBON DIOXIDE LEVEL 27 MEQ/L (21-32); CHLORIDE LEVEL 106 MEQ/L (98-107); CREATININE FOR GFR 1.18 MG/DL (0.70-1.30); GLOMERULAR FILTRATION RATE > 60.0 (>49); GLUCOSE, FASTING 89 MG/DL (70-100); POTASSIUM SERUM 3.7 MEQ/L (3.5-5.1); SODIUM LEVEL 142 MEQ/L (136-145); TOTAL PROTEIN 5.8 GM/DL (6.4-8.2)
== END ==
LOC: M LAB 09:30
PROVIDERS: ATTEND Psychiatry & Neurology Neurology
DX: D49.7 Neoplasm of unspecified behavior of endocrine glands and other parts of nervous system (principal)

== ENCOUNTER 2019-09-19 11:53 | Emergency (ER) | payer OTHER ==
[~2019-09-19] VITALS: Ht 162.6 cm; Wt 86.4 kg
[~2019-09-19 11:53] MED LIST changes: -LYRI200C PO; -MAGN400C PO; -ONDA8TAB8 PO; -TEMO1CAP5 PO
[2019-09-19] MEDS ORDERED: TEMO1CAP5 PO (12:28)
[2019-09-19] MEDS ORDERED: LYRI200C PO (12:28)
[2019-09-19] MEDS ORDERED: DESM0.1T2 PO (12:28)
[2019-09-19] MEDS ORDERED: MAGN400C PO (12:28)
[2019-09-19] MEDS ORDERED: ONDA8TAB8 PO (12:28)
[2019-09-19] MEDS ORDERED: NS 1,000 ML IV ONE ×2 (12:30→14:15)
[2019-09-19] MEDS ORDERED: ONDANSETRON 4MG/2ML VIAL (J2405) IV ONE (12:30)
[2019-09-19 12:49] LABS: BASO % 0.5 % (0.0-1.0); EOS % 0.5 % (0.0-3.0); HEMATOCRIT 47.6 % (42.0-52.0); HEMOGLOBIN 15.6 g/dl (13.5-17.5); LYMPH # 1.1 10^3/uL (1.5-5.0); LYMPH % 18.7 % (24.0-44.0); MEAN CORPUSCULAR HEMOGLOBIN 28.6 pg (27.0-33.0); MEAN CORPUSCULAR HGB CONC 32.8 g/dl (32.0-36.5); MEAN CORPUSCULAR VOLUME 87.2 fl (80.0-96.0); MONO # 0.5 10^3/uL (0.0-0.8); MONO % 8.6 % (0.0-5.0); NEUTROPHILS % 71.3 % (36.0-66.0); PLATELET COUNT, AUTOMATED 289 10^3/uL (150-450); RED BLOOD COUNT 5.46 10^6/uL (4.30-6.10); WHITE BLOOD COUNT 5.7 10^3/uL (4.0-10.0)
[2019-09-19] MEDS: MORPHINE 4 MG/ML 1ML VIAL/SYRINGE (J2270) IV PRN ×2 (13:00→14:51)
--- NOTE | 2019-09-19 13:14 | REP ---
CT brain: 09/19/2019. Indication: Altered mental status. Stroke. Comparison: 03/06/2019. Technique: Unenhanced axial CT images of the brain were obtained from skull base to vertex. Findings: There is no acute intracranial hemorrhage, acute cortical infarction, mass effect or hydrocephalous. Volume loss is present. There are a few patchy areas of white matter hypoattenuation within the cerebral hemispheres most consistent with chronic small vessel disease. Intracranial atherosclerotic disease is present. Transsphenoidal surgical approach to the pituitary is redemonstrated. Impression: No acute intracranial process. Electronically Signed by Erik Whyte DO 09/19/2019 01:05 P
[2019-09-19 13:26] LABS: OSMOLALITY SERUM 277 MOSM/KG (280-301)
[2019-09-19 13:34] LABS: ALBUMIN 3.7 GM/DL (3.2-5.2); ALT/SGPT 29 U/L (12-78); BILIRUBIN,DIRECT 0.1 MG/DL (0.0-0.2); BILIRUBIN,TOTAL 0.3 MG/DL (0.2-1.0); BLOOD UREA NITROGEN 26 MG/DL (7-18); CALCIUM LEVEL 8.8 MG/DL (8.8-10.2); CARBON DIOXIDE LEVEL 31 MEQ/L (21-32); CHLORIDE LEVEL 95 MEQ/L (98-107); CK-MB VALUE MASS 1.2 NG/ML (<3.6); CPK CREATINE PHOSPHOKINASE 61 U/L (39-308); CREATININE FOR GFR 1.17 MG/DL (0.70-1.30); GLOMERULAR FILTRATION RATE > 60.0 (>49); GLUCOSE, FASTING 100 MG/DL (70-100); MB/CK RELATIVE INDEX 1.97 (< OR =4); POTASSIUM SERUM 3.8 MEQ/L (3.5-5.1); SODIUM LEVEL 131 MEQ/L (136-145); THYROID STIMULATING HORMONE < 0.005 uIU/ML (0.358-3.740); TOTAL PROTEIN 6.2 GM/DL (6.4-8.2); TROPONIN I < 0.02 NG/ML (< 0.10)
--- NOTE | 2019-09-19 15:44 | ECGEPIP ---
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
[2019-09-19 16:00] VITALS: BP 115/69
[2019-09-19] MEDS ORDERED: PROHANCE 279.3MG/ML 5ML VIAL (A9576) As Ordered ONE (17:28)
--- NOTE | 2019-09-19 20:07 | REPVR ---
PROCEDURE INFORMATION: Exam: MR Head Without and With Contrast Exam date and time: 09/19/2019 6:26 PM Age: 69 years old Clinical history: Condition or disease; Brain tumor; Neoplasm of brain, not specified; Prior surgery; Surgery date: 6+ months; Surgery type: Pituitary revision 5x over past 20 years; Patient HX: Known pituitary tumor, recommended scan from oncology. PT has been having hallucinations, confusion, and moments of combativeness PT unable to tolerate remainder of exam refused further scanning TECHNIQUE: Imaging protocol: MR of the head without and with intravenous contrast. Contrast material: PROHANCE; Contrast volume: 9 ml; Contrast route: 22G ANGIO; Other contrast: Other: iv; COMPARISON: CT Head without contrast 2019-09-19 12:50 FINDINGS: Previous transphenoidal pituitary tumor partial resection. residual pituitary tumor along the periphery of the sella turcica, and extending into the bilateral cavernous sinuses. Mild right ICA narrowing. Some of the tumor appears to extend to the posterior margin of the right cavernous sinus causing minimal effacement of right Meckel's diverticulum and the ventral prepontine cistern. No diffusion restriction to suggest acute ischemia or infarction. Edge artifact in the right parietal region. No significant abnormal FLAIR hyperintensity within the brain parenchyma. There some soft tissue protruding into the sphenoid sinus posteriorly. The optic tracts and optic chiasm are within normal limits. IMPRESSION: 1. Age-related volume loss. No acute abnormality. 2. 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 Electronically signed by: Malik Lee On 09/19/2019 20:07:01 PM
== END 2019-09-19 19:45 | disposition left against medical advice (07) ==
LOC: M ED 11:53
DX: R51 Headache (principal); D49.7 Neoplasm of unspecified behavior of endocrine glands and other parts of nervous system; Z53.21 Procedure and treatment not carried out due to patient leaving prior to being seen by health care provider; I10 Essential (primary) hypertension; E07.9 Disorder of thyroid, unspecified; F41.9 Anxiety disorder, unspecified; F32.9 Major depressive disorder, single episode, unspecified; Z92.3 Personal history of irradiation; Z92.21 Personal history of antineoplastic chemotherapy; Z79.82 Long term (current) use of aspirin; Z79.899 Other long term (current) drug therapy; Z88.0 Allergy status to penicillin
CPT/HCPCS: 70450; 70553; 80048; 80076; 82140; 82550; 82553; 83930; 84443; 84484; 85025; 93005; 93041; 94760; 96361; 96374; 96375; 96376; 99285; A9576; J2270; J2405

== ENCOUNTER → 2019-09-23 | Outpatient (CLI) | payer OTHER ==
[~2019-09-23] MED LIST changes: +LYRI200C PO; +MAGN400C PO; +ONDA8TAB8 PO; +TEMO1CAP5 PO
[2019-09-23 12:21] LABS: OSMOLALITY SERUM 280 MOSM/KG (280-301)
[2019-09-23 12:22] LABS: BLOOD UREA NITROGEN 18 MG/DL (7-18); CALCIUM LEVEL 8.4 MG/DL (8.8-10.2); CARBON DIOXIDE LEVEL 31 MEQ/L (21-32); CHLORIDE LEVEL 98 MEQ/L (98-107); CREATININE FOR GFR 1.24 MG/DL (0.70-1.30); GLOMERULAR FILTRATION RATE > 60.0 (>49); GLUCOSE, FASTING 105 MG/DL (70-100); POTASSIUM SERUM 3.6 MEQ/L (3.5-5.1); SODIUM LEVEL 137 MEQ/L (136-145)
== END ==
LOC: M LAB 11:24
PROVIDERS: ATTEND Internal Medicine Endocrinology, Diabetes & Metabolism
DX: D49.7 Neoplasm of unspecified behavior of endocrine glands and other parts of nervous system (principal); E03.9 Hypothyroidism, unspecified; E23.2 Diabetes insipidus

== ENCOUNTER → 2019-10-06 | Outpatient (CLI) | payer OTHER ==
[2019-10-06 12:08] LABS: OSMOLALITY SERUM 300 MOSM/KG (280-301)
[2019-10-06 12:27] LABS: BLOOD UREA NITROGEN 24 MG/DL (7-18); CALCIUM LEVEL 8.9 MG/DL (8.8-10.2); CARBON DIOXIDE LEVEL 32 MEQ/L (21-32); CHLORIDE LEVEL 102 MEQ/L (98-107); CREATININE FOR GFR 1.18 MG/DL (0.70-1.30); GLOMERULAR FILTRATION RATE > 60.0 (>49); GLUCOSE, FASTING 137 MG/DL (70-100); POTASSIUM SERUM 4.4 MEQ/L (3.5-5.1); SODIUM LEVEL 141 MEQ/L (136-145)
== END ==
LOC: M LAB 10:56
PROVIDERS: ATTEND Internal Medicine Endocrinology, Diabetes & Metabolism
DX: E23.2 Diabetes insipidus (principal); D49.7 Neoplasm of unspecified behavior of endocrine glands and other parts of nervous system

== ENCOUNTER → 2019-10-21 | Outpatient (CLI) | payer OTHER ==
[2019-10-21 11:16] LABS: BLOOD UREA NITROGEN 19 MG/DL (7-18); CALCIUM LEVEL 9.1 MG/DL (8.8-10.2); CARBON DIOXIDE LEVEL 27 MEQ/L (21-32); CHLORIDE LEVEL 106 MEQ/L (98-107); CREATININE FOR GFR 1.26 MG/DL (0.70-1.30); GLOMERULAR FILTRATION RATE > 60.0 (>49); GLUCOSE, FASTING 138 MG/DL (70-100); POTASSIUM SERUM 3.8 MEQ/L (3.5-5.1); SODIUM LEVEL 142 MEQ/L (136-145)
== END ==
LOC: M LAB 10:27
PROVIDERS: ATTEND Internal Medicine Endocrinology, Diabetes & Metabolism
DX: D49.7 Neoplasm of unspecified behavior of endocrine glands and other parts of nervous system (principal)

== ENCOUNTER → 2019-11-05 | Outpatient (CLI) | payer OTHER ==
[2019-11-05 13:16] LABS: CALCIUM LEVEL 9.1 MG/DL (8.8-10.2); CREATININE FOR GFR 1.31 MG/DL (0.70-1.30); GLOMERULAR FILTRATION RATE 57.9 (>49); POTASSIUM SERUM 3.8 MEQ/L (3.5-5.1)
== END ==
LOC: M LAB 11:09
PROVIDERS: ATTEND Internal Medicine Endocrinology, Diabetes & Metabolism
DX: D49.7 Neoplasm of unspecified behavior of endocrine glands and other parts of nervous system (principal)

== ENCOUNTER → 2019-11-14 | Outpatient (REF) | payer OTHER ==
[2019-11-14 19:26] LABS: CALCIUM LEVEL 8.9 MG/DL (8.8-10.2); CREATININE FOR GFR 1.38 MG/DL (0.70-1.30); GLOMERULAR FILTRATION RATE 54.5 (>49); POTASSIUM SERUM 4.2 MEQ/L (3.5-5.1)
== END ==
LOC: M LABDRAW1 17:07
PROVIDERS: ATTEND Internal Medicine Endocrinology, Diabetes & Metabolism
DX: D49.7 Neoplasm of unspecified behavior of endocrine glands and other parts of nervous system (principal)

== ENCOUNTER → 2019-11-24 | Outpatient (CLI) | payer OTHER ==
[2019-11-24 12:31] LABS: OSMOLALITY SERUM 291 MOSM/KG (280-301)
[2019-11-24 12:35] LABS: BLOOD UREA NITROGEN 22 MG/DL (7-18); CALCIUM LEVEL 8.2 MG/DL (8.8-10.2); CARBON DIOXIDE LEVEL 29 MEQ/L (21-32); CHLORIDE LEVEL 105 MEQ/L (98-107); CREATININE FOR GFR 1.13 MG/DL (0.70-1.30); GLOMERULAR FILTRATION RATE > 60.0 (>49); GLUCOSE, FASTING 101 MG/DL (70-100); POTASSIUM SERUM 3.5 MEQ/L (3.5-5.1); SODIUM LEVEL 142 MEQ/L (136-145)
== END ==
LOC: M LAB 11:43
PROVIDERS: ATTEND Internal Medicine Endocrinology, Diabetes & Metabolism
DX: D49.7 Neoplasm of unspecified behavior of endocrine glands and other parts of nervous system (principal)

== ENCOUNTER → 2019-12-27 | Outpatient (REF) | payer OTHER ==
[2019-12-27 17:09] LABS: ALBUMIN 3.5 GM/DL (3.2-5.2); ALT/SGPT 32 U/L (12-78); BILIRUBIN,TOTAL 0.3 MG/DL (0.2-1.0); BLOOD UREA NITROGEN 15 MG/DL (7-18); CARBON DIOXIDE LEVEL 30 MEQ/L (21-32); CHLORIDE LEVEL 105 MEQ/L (98-107); CREATININE FOR GFR 1.06 MG/DL (0.70-1.30); GLOMERULAR FILTRATION RATE > 60.0 (>49); GLUCOSE, FASTING 66 MG/DL (70-100); POTASSIUM SERUM 3.9 MEQ/L (3.5-5.1); SODIUM LEVEL 140 MEQ/L (136-145); TOTAL PROTEIN 5.9 GM/DL (6.4-8.2)
== END ==
LOC: M LABDRAW1 14:14
PROVIDERS: ATTEND Family Medicine
DX: I10 Essential (primary) hypertension (principal)

== ENCOUNTER → 2020-04-09 | Outpatient (CLI) | payer OTHER ==
[~2020-04-09] MED LIST changes: -ASPI81TA85 PO; +ASPI81TA86 PO; +HYDR-4468 PO; -HYDR-4513 PO; +TEMO1CAP PO; -TEMO1CAP5 PO
[2020-04-09 12:41] LABS: CALCIUM LEVEL 8.8 MG/DL (8.8-10.2); CREATININE FOR GFR 1.53 MG/DL (0.70-1.30); FREE T4 1.1 NG/DL (0.76-1.46); GLOMERULAR FILTRATION RATE 48.4 (>49)
== END ==
LOC: M PLALAB 10:14
PROVIDERS: ATTEND Internal Medicine Endocrinology, Diabetes & Metabolism
DX: D49.7 Neoplasm of unspecified behavior of endocrine glands and other parts of nervous system (principal); E03.9 Hypothyroidism, unspecified; E29.1 Testicular hypofunction

== ENCOUNTER → 2020-04-16 | Outpatient (CLI) | payer OTHER ==
[~2020-04-16] MED LIST changes: +ASPI81TA85 PO; -ASPI81TA86 PO
[2020-04-16 14:25] LABS: BLOOD UREA NITROGEN 16 MG/DL (7-18); CALCIUM LEVEL 8.9 MG/DL (8.8-10.2); CARBON DIOXIDE LEVEL 27 MEQ/L (21-32); CHLORIDE LEVEL 98 MEQ/L (98-107); CREATININE FOR GFR 1.24 MG/DL (0.70-1.30); GLOMERULAR FILTRATION RATE > 60.0 (>49); GLUCOSE, FASTING 142 MG/DL (70-100); POTASSIUM SERUM 4.2 MEQ/L (3.5-5.1); SODIUM LEVEL 133 MEQ/L (136-145)
== END ==
LOC: M PLALAB 11:17
PROVIDERS: ATTEND Internal Medicine Endocrinology, Diabetes & Metabolism
DX: D49.7 Neoplasm of unspecified behavior of endocrine glands and other parts of nervous system (principal); E03.9 Hypothyroidism, unspecified; E29.1 Testicular hypofunction

== ENCOUNTER 2020-05-17 09:49 | Emergency (ER) | payer OTHER ==
[~2020-05-17 09:49] MED LIST changes: -ASPI81TA85 PO; +ASPI81TA86 PO; +KETOROLAC 30 MG/ML 1ML VIAL ONE; +METOCLOPRAMIDE INJ 10MG/2ML VIAL (J2765 PER 1) ONE; +MORPHINE 4 MG/ML 1ML VIAL/SYRINGE (J2270) ONE; +diphenhydrAMINE 50MG/ML VIAL (J1200) ONE
[2020-06-22 21:36] LABS: BASO # 0.1 10^3/uL (0.0-0.2); BASO % 0.7 % (0.0-1.0); EOS # 0.1 10^3/uL (0.0-0.5); EOS % 1.4 % (0.0-3.0); HEMATOCRIT 45.8 % (42.0-52.0); HEMOGLOBIN 15.6 g/dl (13.5-17.5); LYMPH # 2.1 10^3/uL (1.5-5.0); LYMPH % 23.7 % (24.0-44.0); MEAN CORPUSCULAR HEMOGLOBIN 29.1 pg (27.0-33.0); MEAN CORPUSCULAR HGB CONC 34.1 g/dl (32.0-36.5); MEAN CORPUSCULAR VOLUME 85.4 fl (80.0-96.0); MONO # 0.7 10^3/uL (0.0-0.8); NEUTROPHILS # 5.7 10^3/uL (1.5-8.5); NEUTROPHILS % 65.4 % (36.0-66.0); PLATELET COUNT, AUTOMATED 252 10^3/uL (150-450); RED BLOOD COUNT 5.36 10^6/uL (4.30-6.10); WHITE BLOOD COUNT 8.7 10^3/uL (4.0-10.0)
[2020-07-27 14:23] LABS: ALBUMIN 3.2 GM/DL (3.2-5.2); ALT/SGPT 22 U/L (12-78); BILIRUBIN,TOTAL 0.6 MG/DL (0.2-1.0); BLOOD UREA NITROGEN 23 MG/DL (7-18); CALCIUM LEVEL 8.4 MG/DL (8.8-10.2); CARBON DIOXIDE LEVEL 29 MEQ/L (21-32); CHLORIDE LEVEL 95 MEQ/L (98-107); CREATININE FOR GFR 1.18 MG/DL (0.70-1.30); GLOMERULAR FILTRATION RATE > 60.0 (>49); GLUCOSE, FASTING 90 MG/DL (70-100); POTASSIUM SERUM 3.8 MEQ/L (3.5-5.1); SODIUM LEVEL 131 MEQ/L (136-145)
== END 2020-05-17 10:00 | disposition home or self-care (01) ==
LOC: M ED 09:49
DX: G43.909 Migraine, unspecified, not intractable, without status migrainosus (principal); G89.29 Other chronic pain; R51 Headache; H57.10 Ocular pain, unspecified eye; G50.1 Atypical facial pain; Z92.0 Personal history of contraception; Z86.018 Personal history of other benign neoplasm; Z86.69 Personal history of other diseases of the nervous system and sense organs; Z79.899 Other long term (current) drug therapy; Z79.82 Long term (current) use of aspirin
CPT/HCPCS: 80053; 85025; 96374; 96375; 99284; J1200; J1885; J2270; J2765

== ENCOUNTER 2020-05-20 16:05 | Inpatient (IN) | payer OTHER ==
[~2020-05-20 16:05] MED LIST changes: -KETOROLAC 30 MG/ML 1ML VIAL ONE; -METOCLOPRAMIDE INJ 10MG/2ML VIAL (J2765 PER 1) ONE; -MORPHINE 4 MG/ML 1ML VIAL/SYRINGE (J2270) ONE; -diphenhydrAMINE 50MG/ML VIAL (J1200) ONE
[2020-05-20] MEDS ORDERED: LORazepam 2 MG/ML VIAL ONE ×3 (20:33→23:13)
[2020-05-20] MEDS ORDERED: LORazepam 2 MG/ML VIAL As Ordered ONE ×3 (20:33→23:13)
[2020-05-21] MEDS ORDERED: SODIUM CHLORIDE 3% 500 ML BAG ONE (06:00)
[2020-05-21] MEDS ORDERED: DESMOPRESSIN 4 MCG/ML INJ VIAL/AMP (J2597) ONE (09:00)
[2020-05-21] MEDS ORDERED: HYDROCORTISONE 10 MG TAB ONE ×4 (09:00→10:00)
[2020-05-21] MEDS ORDERED: HYDROCORTISONE 100 MG/2 ML VIAL (J1720 PER 1) As Ordered ONE (09:14)
[2020-05-21] MEDS ORDERED: HYDROCORTISONE 100 MG/2 ML VIAL (J1720 PER 1) ONE (09:14)
[2020-05-21] MEDS ORDERED: ENOXAPARIN 40MG/0.4ML SYRINGE (J1650 PER 10MG) As Ordered ONE (09:14)
[2020-05-21] MEDS ORDERED: ENOXAPARIN 40MG/0.4ML SYRINGE (J1650 PER 10MG) ONE (09:14)
[2020-05-21] MEDS ORDERED: LIOTHYRONINE 25 MCG TAB ONE ×2 (10:00→13:00)
[2020-05-21] MEDS ORDERED: LEVOTHYROXINE 100MCG (0.1MG) VIAL ONE (11:00)
[2020-05-21] MEDS ORDERED: ACETAMINOPHEN 650MG ER TAB (TYLENOL ARTHRITIS) ONE (13:00)
[2020-05-21] MEDS ORDERED: LORazepam 2 MG/ML VIAL As Ordered ONE ×5 (13:02→22:24)
[2020-05-21] MEDS ORDERED: LORazepam 2 MG/ML VIAL ONE ×5 (13:02→22:24)
[2020-05-22] MEDS ORDERED: ACETAMINOPHEN TAB 650MG DOSE (2X325MG) As Ordered ONE (00:15)
[2020-05-22] MEDS ORDERED: ACETAMINOPHEN TAB 650MG DOSE (2X325MG) ONE (00:15)
[2020-05-22] MEDS ORDERED: LORazepam 2 MG/ML VIAL As Ordered ONE ×5 (01:17→20:12)
[2020-05-22] MEDS ORDERED: LORazepam 2 MG/ML VIAL ONE ×5 (01:17→20:12)
[2020-05-22] MEDS ORDERED: MORPHINE 2 MG/ML 1ML VIAL (J2270) As Ordered ONE (05:42)
[2020-05-22] MEDS ORDERED: MORPHINE 2 MG/ML 1ML VIAL (J2270) ONE (05:42)
[2020-05-22] MEDS ORDERED: ENOXAPARIN 40MG/0.4ML SYRINGE (J1650 PER 10MG) As Ordered ONE (08:44)
[2020-05-22] MEDS ORDERED: ENOXAPARIN 40MG/0.4ML SYRINGE (J1650 PER 10MG) ONE (08:44)
[2020-05-22] MEDS ORDERED: PREGABALIN 100 MG CAP (LYRICA) ONE ×2 (08:56→20:02)
[2020-05-22] MEDS ORDERED: oxyCODONE 5MG TAB ONE (08:56)
[2020-05-22] MEDS ORDERED: PREGABALIN 100 MG CAP (LYRICA) As Ordered ONE (08:56)
[2020-05-22] MEDS ORDERED: oxyCODONE 5MG TAB As Ordered ONE (08:56)
[2020-05-22] MEDS ORDERED: POTASSIUM CHLORIDE 10% LIQ 20 MEQ/15 ML UDC ONE (10:29)
[2020-05-22] MEDS ORDERED: POTASSIUM CHLORIDE 10% LIQ 20 MEQ/15 ML UDC As Ordered ONE (10:29)
[2020-05-22] MEDS ORDERED: ACETAMINOPHEN 325 MG TAB ONE (20:02)
[2020-05-23] MEDS ORDERED: LORazepam 2 MG/ML VIAL As Ordered ONE (03:36)
[2020-05-23] MEDS ORDERED: LORazepam 2 MG/ML VIAL ONE (03:36)
[2020-05-23] MEDS ORDERED: QUEtiapine FUMARATE 12.5 MG HALF-TAB ONE (07:00)
[2020-05-23] MEDS ORDERED: buPROPion **XL** TABLET 150MG (WELLBUTRIN XL) ONE (07:00)
[2020-05-23] MEDS ORDERED: LEVOTHYROXINE 100MCG (0.1MG) VIAL As Ordered ONE (07:17)
[2020-05-23] MEDS ORDERED: LEVOTHYROXINE 100MCG (0.1MG) VIAL ONE (07:17)
[2020-05-23] MEDS ORDERED: ACETAMINOPHEN 650MG ER TAB (TYLENOL ARTHRITIS) ONE (09:15)
[2020-05-23] MEDS ORDERED: ZOSYN 3.375GM VIAL (J2543) As Ordered ONE (09:15)
[2020-05-23] MEDS ORDERED: ZOSYN 3.375GM VIAL (J2543) ONE (09:15)
[2020-05-23] MEDS ORDERED: PREGABALIN 100 MG CAP (LYRICA) ONE ×2 (09:16→21:31)
[2020-05-23] MEDS ORDERED: PREGABALIN 100 MG CAP (LYRICA) As Ordered ONE ×2 (09:16→21:32)
[2020-05-23] MEDS ORDERED: ACETAMINOPHEN TAB 650MG DOSE (2X325MG) As Ordered ONE (09:16)
[2020-05-23] MEDS ORDERED: ENOXAPARIN 40MG/0.4ML SYRINGE (J1650 PER 10MG) ONE (09:16)
[2020-05-23] MEDS ORDERED: ENOXAPARIN 40MG/0.4ML SYRINGE (J1650 PER 10MG) As Ordered ONE (09:16)
[2020-05-23] MEDS ORDERED: LevoFLOXacin 500MG/100ML IV BAG (J1956 PER 250MG) ONE (10:35)
[2020-05-23] MEDS ORDERED: LevoFLOXacin 500MG/100ML IV BAG (J1956 PER 250MG) As Ordered ONE (10:35)
[2020-05-23] MEDS ORDERED: LIOTHYRONINE 25 MCG TAB ONE (13:00)
[2020-05-23] MEDS ORDERED: QUEtiapine FUMARATE 25 MG TAB ONE (21:31)
[2020-05-23] MEDS ORDERED: QUEtiapine FUMARATE 25 MG TAB As Ordered ONE (21:31)
[2020-05-24] MEDS ORDERED: LEVOTHYROXINE 100MCG TABLET (0.1MG) ONE (06:25)
[2020-05-24] MEDS ORDERED: LEVOTHYROXINE 100MCG TABLET (0.1MG) As Ordered ONE (06:25)
[2020-05-24] MEDS ORDERED: buPROPion **XL** TABLET 150MG (WELLBUTRIN XL) As Ordered ONE (09:48)
[2020-05-24] MEDS ORDERED: QUEtiapine FUMARATE 25 MG TAB As Ordered ONE (09:48)
[2020-05-24] MEDS ORDERED: ENOXAPARIN 40MG/0.4ML SYRINGE (J1650 PER 10MG) As Ordered ONE (09:48)
[2020-05-24] MEDS ORDERED: ENOXAPARIN 40MG/0.4ML SYRINGE (J1650 PER 10MG) ONE (09:48)
[2020-05-24] MEDS ORDERED: LevoFLOXacin 500MG/100ML IV BAG (J1956 PER 250MG) ONE (09:48)
[2020-05-24] MEDS ORDERED: buPROPion **XL** TABLET 150MG (WELLBUTRIN XL) ONE (09:48)
[2020-05-24] MEDS ORDERED: ACETAMINOPHEN TAB 650MG DOSE (2X325MG) As Ordered ONE (09:48)
[2020-05-24] MEDS ORDERED: ACETAMINOPHEN TAB 650MG DOSE (2X325MG) ONE (09:48)
[2020-05-24] MEDS ORDERED: PREGABALIN 100 MG CAP (LYRICA) ONE (09:48)
[2020-05-24] MEDS ORDERED: LevoFLOXacin 500MG/100ML IV BAG (J1956 PER 250MG) As Ordered ONE (09:49)
[2020-05-24] MEDS ORDERED: PREGABALIN 100 MG CAP (LYRICA) As Ordered ONE (09:49)
[2020-05-25] MEDS ORDERED: HYDROCORTISONE 10 MG TAB ONE (09:00)
[2020-05-25] MEDS ORDERED: QUEtiapine FUMARATE 25 MG TAB As Ordered ONE (09:18)
[2020-05-25] MEDS ORDERED: buPROPion **XL** TABLET 150MG (WELLBUTRIN XL) As Ordered ONE (09:18)
[2020-05-25] MEDS ORDERED: PREGABALIN 100 MG CAP (LYRICA) As Ordered ONE ×2 (09:19→21:18)
[2020-05-25] MEDS ORDERED: PREGABALIN 100 MG CAP (LYRICA) ONE ×2 (09:19→21:18)
[2020-05-25] MEDS ORDERED: ENOXAPARIN 40MG/0.4ML SYRINGE (J1650 PER 10MG) ONE (09:19)
[2020-05-25] MEDS ORDERED: LevoFLOXacin 500MG/100ML IV BAG (J1956 PER 250MG) ONE (09:19)
[2020-05-25] MEDS ORDERED: ENOXAPARIN 40MG/0.4ML SYRINGE (J1650 PER 10MG) As Ordered ONE (09:19)
[2020-05-25] MEDS ORDERED: LevoFLOXacin 500MG/100ML IV BAG (J1956 PER 250MG) As Ordered ONE (09:21)
[2020-05-25] MEDS ORDERED: RAMELTEON 8 MG TAB (ROZEREM) ONE (21:18)
[2020-05-25] MEDS ORDERED: busPIRone 10 MG TAB As Ordered ONE (21:18)
[2020-05-25] MEDS ORDERED: busPIRone 10 MG TAB ONE (21:18)
[2020-05-25] MEDS ORDERED: RAMELTEON 8 MG TAB (ROZEREM) As Ordered ONE (21:19)
[2020-05-26] MEDS ORDERED: LEVOTHYROXINE 100MCG TABLET (0.1MG) ONE (05:45)
[2020-05-26] MEDS ORDERED: LEVOTHYROXINE 100MCG TABLET (0.1MG) As Ordered ONE (05:45)
[2020-05-26] MEDS ORDERED: HYDROCORTISONE 10 MG TAB ONE ×2 (06:59)
[2020-05-26] MEDS ORDERED: LIOTHYRONINE 25 MCG TAB ONE (06:59)
[2020-05-26] MEDS ORDERED: LevoFLOXacin 500 MG TABLET ONE (06:59)
[2020-05-26] MEDS ORDERED: busPIRone 10 MG TAB As Ordered ONE (08:29)
[2020-05-26] MEDS ORDERED: ENOXAPARIN 40MG/0.4ML SYRINGE (J1650 PER 10MG) ONE (08:29)
[2020-05-26] MEDS ORDERED: PREGABALIN 100 MG CAP (LYRICA) As Ordered ONE (08:29)
[2020-05-26] MEDS ORDERED: PREGABALIN 100 MG CAP (LYRICA) ONE (08:29)
[2020-05-26] MEDS ORDERED: busPIRone 10 MG TAB ONE (08:29)
[2020-05-26] MEDS ORDERED: ENOXAPARIN 40MG/0.4ML SYRINGE (J1650 PER 10MG) As Ordered ONE (08:29)
[2020-05-26] MEDS ORDERED: ACETAMINOPHEN 650MG ER TAB (TYLENOL ARTHRITIS) ONE (08:36)
[2020-05-26] MEDS ORDERED: ACETAMINOPHEN 650MG ER TAB (TYLENOL ARTHRITIS) As Ordered ONE (08:36)
[2020-05-26] MEDS ORDERED: LevoFLOXacin 500MG/100ML IV BAG (J1956 PER 250MG) As Ordered ONE (09:57)
[2020-05-26] MEDS ORDERED: LevoFLOXacin 500MG/100ML IV BAG (J1956 PER 250MG) ONE (09:57)
--- NOTE | 2020-07-09 14:31 | ECGEPIP ---
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
[2020-07-09 20:38] LABS: BASO # 0.1 10^3/uL (0.0-0.2); BASO % 1.3 % (0.0-1.0); EOS # 0.1 10^3/uL (0.0-0.5); EOS % 1.6 % (0.0-3.0); HEMATOCRIT 47.7 % (42.0-52.0); HEMOGLOBIN 16.6 g/dl (13.5-17.5); LYMPH # 2.1 10^3/uL (1.5-5.0); LYMPH % 29.9 % (24.0-44.0); MEAN CORPUSCULAR HEMOGLOBIN 29.1 pg (27.0-33.0); MEAN CORPUSCULAR HGB CONC 34.8 g/dl (32.0-36.5); MEAN CORPUSCULAR VOLUME 83.7 fl (80.0-96.0); MONO % 13.6 % (0.0-5.0); NEUTROPHILS # 3.7 10^3/uL (1.5-8.5); NEUTROPHILS % 52.7 % (36.0-66.0); PLATELET COUNT, AUTOMATED 277 10^3/uL (150-450)
[2020-07-10 10:57] LABS: INR 0.99; PARTIAL THROMBOPLASTIN TIME 34.7 SECONDS (24.2-38.5); PROTHROMBIN TIME 13.3 SECONDS (12.5-14.3)
[2020-07-10 11:07] LABS: APPEARANCE, URINE CLEAR (CLEAR); BACTERIA, URINE AUTO NEGATIVE (NEGATIVE); BILIRUBIN, URINE AUTO NEGATIVE (NEGATIVE); BLOOD, URINE BLOOD 2+ (NEGATIVE); COLOR, URINE YELLOW (YELLOW); GLUCOSE, URINE (UA) AUTO NEGATIVE (NEGATIVE); KETONE, URINE AUTO 1+ mg/dL (NEGATIVE); LEUKOCYTE ESTERASE, URINE AUTO NEGATIVE (NEGATIVE); MUCUS, URINE SMALL (NEGATIVE); NITRITE, URINE AUTO NEGATIVE (NEGATIVE); PROTEIN, URINE AUTO NEGATIVE (NEGATIVE); RBC, URINE AUTO 11 /HPF (0-3); SPECIFIC GRAVITY URINE AUTO 1.019 (1.002-1.035); SQUAMOUS EPITHELIAL CELL UR AU 0 /HPF (0-6); UROBILINOGEN, URINE AUTO 0.2 mg/dL (0.0-2.0); WBC, URINE AUTO 1 /HPF (0-3)
[2020-07-10 11:07] LABS: APPEARANCE, URINE CLEAR (CLEAR); BACTERIA, URINE AUTO NEGATIVE (NEGATIVE); BILIRUBIN, URINE AUTO NEGATIVE (NEGATIVE); BLOOD, URINE BLOOD 2+ (NEGATIVE); COLOR, URINE STRAW (YELLOW); GLUCOSE, URINE (UA) AUTO NEGATIVE (NEGATIVE); KETONE, URINE AUTO 1+ mg/dL (NEGATIVE); LEUKOCYTE ESTERASE, URINE AUTO NEGATIVE (NEGATIVE); MUCUS, URINE SMALL (NEGATIVE); NITRITE, URINE AUTO NEGATIVE (NEGATIVE); PROTEIN, URINE AUTO NEGATIVE (NEGATIVE); RBC, URINE AUTO 31 /HPF (0-3); SQUAMOUS EPITHELIAL CELL UR AU 0 /HPF (0-6); TRANSITIONAL EPITHELIAL AUTO 1 /HPF; UROBILINOGEN, URINE AUTO 0.2 mg/dL (0.0-2.0); WBC, URINE AUTO 3 /HPF (0-3)
[2020-07-10 12:13] LABS: HEMATOCRIT 43.6 % (42.0-52.0); HEMOGLOBIN 15.7 g/dl (13.5-17.5); MEAN CORPUSCULAR HEMOGLOBIN 29.2 pg (27.0-33.0); PLATELET COUNT, AUTOMATED 245 10^3/uL (150-450); RED BLOOD COUNT 5.38 10^6/uL (4.30-6.10); WHITE BLOOD COUNT 8.5 10^3/uL (4.0-10.0)
[2020-07-10 12:17] LABS: HEMATOCRIT 46.4 % (42.0-52.0); HEMOGLOBIN 16.7 g/dl (13.5-17.5); MEAN CORPUSCULAR HEMOGLOBIN 28.6 pg (27.0-33.0); MEAN CORPUSCULAR VOLUME 79.6 fl (80.0-96.0); PLATELET COUNT, AUTOMATED 204 10^3/uL (150-450); RED BLOOD COUNT 5.83 10^6/uL (4.30-6.10); WHITE BLOOD COUNT 8.1 10^3/uL (4.0-10.0)
--- NOTE | 2020-07-11 11:42 | REP ---
PORTABLE CHEST X-RAY: SITTING AP VIEW HISTORY: Altered mental status. COMPARISON: Chest x-ray 01/19/2020. Report is delayed due to a malware attack on this facility. FINDINGS: A nasogastric tube has been passed and is seen entering the left upper quadrant of the abdomen. The lungs are exposed to a low level of inspiration. There is mild plate-like atelectasis in the right base. Hazy opacity is seen in the left lateral pleural angle region atelectasis versus small amount of left pleural fluid. Heart size is borderline unchanged. MTDD
[2020-07-11 14:26] LABS: HEMATOCRIT 48.3 % (42.0-52.0); HEMOGLOBIN 16.7 g/dl (13.5-17.5); MEAN CORPUSCULAR HEMOGLOBIN 28.9 pg (27.0-33.0); MEAN CORPUSCULAR HGB CONC 34.6 g/dl (32.0-36.5); MEAN CORPUSCULAR VOLUME 83.6 fl (80.0-96.0); PLATELET COUNT, AUTOMATED 332 10^3/uL (150-450); RED BLOOD COUNT 5.78 10^6/uL (4.30-6.10); WHITE BLOOD COUNT 9.1 10^3/uL (4.0-10.0)
[2020-07-11 18:21] LABS: HEMATOCRIT 46.4 % (42.0-52.0); HEMOGLOBIN 15.8 g/dl (13.5-17.5); MEAN CORPUSCULAR HEMOGLOBIN 29.1 pg (27.0-33.0); MEAN CORPUSCULAR HGB CONC 34.1 g/dl (32.0-36.5); MEAN CORPUSCULAR VOLUME 85.5 fl (80.0-96.0); PLATELET COUNT, AUTOMATED 329 10^3/uL (150-450); RED BLOOD COUNT 5.43 10^6/uL (4.30-6.10); WHITE BLOOD COUNT 9.6 10^3/uL (4.0-10.0)
--- NOTE | 2020-07-15 12:00 | ECGEPIP ---
SINUS RHYTHM PRWP POSSIBLE PRIOR INFERIOR INFARCT SEE SCANNED DOWNTIME REPORT MTDD
[2020-07-16 11:19] LABS: HEMOGLOBIN 15.5 g/dl (13.5-17.5); MEAN CORPUSCULAR HEMOGLOBIN 29.2 pg (27.0-33.0); MEAN CORPUSCULAR HGB CONC 33.7 g/dl (32.0-36.5); MEAN CORPUSCULAR VOLUME 86.6 fl (80.0-96.0); PLATELET COUNT, AUTOMATED 354 10^3/uL (150-450); RED BLOOD COUNT 5.31 10^6/uL (4.30-6.10); WHITE BLOOD COUNT 8.9 10^3/uL (4.0-10.0)
[2020-07-16 11:20] LABS: ERYTHROCYTE SEDIMENTATION RATE 9 mm/hr (0-20)
[2020-07-19 08:36] LABS: BASO % 0.2 % (0.0-1.0); EOS % 0.4 % (0.0-3.0); HEMATOCRIT 44.6 % (42.0-52.0); HEMOGLOBIN 15.8 g/dl (13.5-17.5); LYMPH # 1.1 10^3/uL (1.5-5.0); LYMPH % 12.9 % (24.0-44.0); MEAN CORPUSCULAR HEMOGLOBIN 28.6 pg (27.0-33.0); MEAN CORPUSCULAR HGB CONC 35.4 g/dl (32.0-36.5); MEAN CORPUSCULAR VOLUME 80.8 fl (80.0-96.0); MONO # 0.7 10^3/uL (0.0-0.8); NEUTROPHILS # 6.3 10^3/uL (1.5-8.5); NEUTROPHILS % 77.6 % (36.0-66.0); PLATELET COUNT, AUTOMATED 263 10^3/uL (150-450); RED BLOOD COUNT 5.52 10^6/uL (4.30-6.10); WHITE BLOOD COUNT 8.1 10^3/uL (4.0-10.0)
[2020-07-19 11:00] LABS: HEMOGLOBIN 16.1 g/dl (13.5-17.5); MEAN CORPUSCULAR HEMOGLOBIN 29.3 pg (27.0-33.0); MEAN CORPUSCULAR HGB CONC 35.8 g/dl (32.0-36.5); MEAN CORPUSCULAR VOLUME 81.8 fl (80.0-96.0); PLATELET COUNT, AUTOMATED 274 10^3/uL (150-450); WHITE BLOOD COUNT 6.5 10^3/uL (4.0-10.0)
[2020-07-19 11:37] LABS: APPEARANCE, URINE HAZY (CLEAR); BACTERIA, URINE AUTO 1+ (NEGATIVE); BILIRUBIN, URINE AUTO NEGATIVE (NEGATIVE); BLOOD, URINE BLOOD 3+ (NEGATIVE); COLOR, URINE YELLOW (YELLOW); GLUCOSE, URINE (UA) AUTO NEGATIVE (NEGATIVE); KETONE, URINE AUTO 1+ mg/dL (NEGATIVE); LEUKOCYTE ESTERASE, URINE AUTO TRACE (NEGATIVE); MUCUS, URINE SMALL (NEGATIVE); NITRITE, URINE AUTO NEGATIVE (NEGATIVE); PROTEIN, URINE AUTO 2+ mg/dL (NEGATIVE); RBC, URINE AUTO TNTC /HPF (0-3); SPECIFIC GRAVITY URINE AUTO 1.019 (1.002-1.035); SQUAMOUS EPITHELIAL CELL UR AU 0 /HPF (0-6); UROBILINOGEN, URINE AUTO 0.2 mg/dL (0.0-2.0); WBC, URINE AUTO 22 /HPF (0-3)
[2020-07-19 11:52] LABS: BLOOD UREA NITROGEN 19 MG/DL (7-18); CALCIUM LEVEL 9.4 MG/DL (8.8-10.2); CARBON DIOXIDE LEVEL 26 MEQ/L (21-32); CHLORIDE LEVEL 100 MEQ/L (98-107); CREATININE FOR GFR 1.19 MG/DL (0.70-1.30); GLOMERULAR FILTRATION RATE > 60.0 (>49); GLUCOSE, FASTING 125 MG/DL (70-100); POTASSIUM SERUM 4.3 MEQ/L (3.5-5.1); SODIUM LEVEL 135 MEQ/L (136-145)
[2020-07-21 13:57] LABS: OSMOLALITY SERUM 240 MOSM/KG (280-301); OSMOLALITY URINE 362 MOSM/KG (500-800)
--- NOTE | 2020-07-22 10:33 | EEG ---
DATE: 05/23/2020 DIAGNOSIS: Altered mental status, rule out seizures. EEG# [id number] REFERRING PHYSICIAN: Gricel Mayes MD HISTORY: Patient is a 70-year-old man who was admitted at [facility] due to altered mental status. This EEG was done to rule out epileptic potential and assess degree of encephalopathy. He is currently taking Levothyroxine, Lovenox, Tylenol, hydrocortisone, Lyrica, oxycodone, Zosyn. TECHNICAL DESCRIPTION: This baseline EEG was recorded by a 21-scalp, ear, and two EKG electrodes and was reviewed in bipolar and referential montages following reformatting in 10-20 international electrode placement system. INTERPRETATION: Patient was noted to be mostly in drowsy and asleep state during this EEG. Background rhythm consisted of 6-7 Hz alpha activity measuring 15-40 microvolts in amplitude, which was symmetric bilaterally. Stage 1 and 2 sleep were reviewed and were symmetric bilaterally. Hyperventilation could not be performed. Photic stimulation remained unremarkable. EKG revealed normal sinus rhythm. No focal, lateralizing, or epileptiform abnormalities were seen. No relevant clinical activity was noted. CONCLUSION: This EEG mostly drowsy and stage 1 and 2 sleep is mildly abnormal due to the presence of mild generalized slowing consistent with nonspecific mild diffuse cerebral dysfunction, such as seen in encephalopathy, due to multiple potential causes; including toxic, metabolic, medication-related, infectious, or multifactorial structure brain abnormalities. No epileptic form abnormalities were seen. Clinical correlation is recommended on this patient. [facility]
--- NOTE | 2020-07-25 16:02 | DS ---
DATE OF ADMISSION: 05/20/2020 DATE OF DISCHARGE: 05/26/2020 PLATE AND FRAME FILTER OPERATOR(S): Karen Kirkpatrick MD and Jael Moreira MD PRIMARY DISCHARGE DIAGNOSES: * Symptomatic hyponatremia secondary to recurrent pituitary adenoma. * Recurrent pituitary adenoma status post resection, chemotherapy, and radiation. * Secondary adrenal insufficiency. * Secondary hypothyroidism. * Acute metabolic encephalopathy secondary to hyponatremia. 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 * Deconditioning. * Diabetes insipidus. * Chronic kidney disease stage III. * Urinary tract infection secondary to Enterococcus faecalis and Staph epidermidis with fever of 101. DISCHARGE MEDICATIONS: Please see discharge orders. HOSPITAL COURSE: This is a 70-year-old male with recurrent pituitary adenoma status post chemoradiation who follows in [place] with neurosurgery medical oncology with secondary hypothyroidism and secondary adrenal insufficiency. He was brought into the emergency room with acute metabolic encephalopathy due to severe hyponatremia. Sodium level of 113 secondary to recurrent pituitary adenoma. Patient has a chronic left eye ptosis and was obtunded with sodium level of 113. Patients hydrochlorothiazide and lisinopril, as well as his DDAVP were discontinued by nephrology. He was started on 3% normal saline at 60 mL/hour. CT of the head showed parenchymal volume loss, minimal matter changes are demonstrated consistent with age-related small vessel white matter angiopathic gliosis, bilateral basal ganglia calcification, degree of ventricular dilatation is normal for age and/or degree of atrophy present. Inflammatory changes demonstrated in the sphenoid sinuses, small retention cyst in the right maxillary sinus and otherwise unremarkable. No air fluid level visualized. Mastoid air cells are well-aerated. Atherosclerotic calcifications are demonstrated in the intracranial carotid arteries bilaterally, as well as in the vertebral basilar system. No other acute intracranial findings. Chest x-ray showed no acute findings. Suboptimal inspiratory effort, elevated right hemidiaphragm, unremarkable pleural space. No pleural effusion. No pneumothorax. Unremarkable heart. No cardiomegaly. EKG was sinus rhythm. Ventricular rate of 73. ST deviation, moderate T-wave abnormality; consider lateral ischemia. Patient was obtunded for three days, was agitated, and required multiple doses of Ativan intravenously. Mitts and a sitter were provided. Nasogastric tube was placed to administer the patient hydrocortisone, as well as Synthroid and liothyronine. DDAVP was held. Patients sodium improved to 135 with resolution of his mental status changes. He remained with chronic left eye ptosis. He was transferred from intensive care unit (ICU) to progressive care unit (PCU). Discontinued patients Wallace and nasogastric tube. Tube feedings were discontinued and he was evaluated by speech therapy who recommended a pureed diet and thin liquids. Patient passed a home safety evaluation. He was noted to have a fever of 101. Urinalysis (UA) was positive with E. faecalis and Staph epidermidis. Wallace catheter had been discontinued and he was treated with Levaquin with no recurrent fever or white count. Patient was instructed not to resume his hydrochlorothiazide, DDAVP, and lisinopril as instructed by nephrology. He is to follow-up with Dr. Pam Veronica in [place], Dr. Moreira, or Dr. Kirkpatrick digital strategy director and to continue with his previously scheduled neurosurgical medical oncology follow-up in [place] at the end of the month. DISCHARGE PHYSICAL EXAMINATION: VITAL SIGNS: Temperature 97.5, pulse 68, respiratory rate 14, blood pressure 117/80, 98% on room air. GENERAL: Patient is hard of hearing. Speech is fluent. Chronic left eye ptosis. He is now awake, alert, and oriented to person, place, and time. No conversational dyspnea. He had slowed speech. No use of respiratory accessory muscles. HEENT: Face is symmetric. Tongue is midline. NECK: No JVD or thyromegaly. LUNGS: Clear to auscultation. No wheezing, rales or rhonchi. HEART: S1, S2. Sinus rhythm. No murmurs, rubs, or gallops. ABDOMEN: Soft, nontender, and nondistended with positive bowel sounds in four quadrants. No rebound or guarding. No hepatosplenomegaly. No abdominal bruit. EXTREMITIES: No cyanosis, clubbing, or pitting edema. Patients Wallace catheter and nasogastric tube have been removed as of two days ago. LABORATORY DATA: White count 9, hemoglobin 15, hematocrit 46, platelet count 329,000. As of 05/25/2020 sodium 139, potassium 4, chloride 103, bicarb 30, BUN 24, creatinine 1.42, glucose 99, calcium 8.5. IMAGING STUDIES: CT of the head 05/20/2020, parenchymal volume loss. Minimal matter changes are demonstrated consistent with age-related small vessel white matter angiopathic gliosis. Degree of ventricular dilatation is normal for age and/or degree of atrophy present. No acute intracranial findings. Chest x-ray with no acute findings. EKG 05/22/2020 sinus rhythm with ventricular rate of 73, ST deviation, moderate T-wave abnormality. TIME SPENT ON HOSPITAL DISCHARGE: 30 minutes. MTDD
--- NOTE | 2020-07-26 07:32 | IPN ---
DATE: 05/24/2020 SUBJECTIVE: Patient seen and examined at the bedside. Chart has been reviewed. He has been transferred from intensive care unit (ICU) to the progressive care unit. Much more alert this morning. Passed a swallow evaluation and currently on an oral diet. Patient is much more oriented, able to answer questions appropriately this morning, and able to state his name and where he was. Patient complained of persistent left upper eyelid ptosis, which he said had occurred from home and persistent throughout the admission. He has no recollection of the past four days of hospitalization. He does not recall any confusion, but awoke yesterday afternoon able to speak with his . This morning, the patient denies any chills, nausea, vomiting, or abdominal pain. Denies any headache. He is still disoriented and had to be reminded of why he is in the hospital twice during this interview process. One at 7 o'clock this morning up to 7:15 to discuss his case and he requested for M.D. to be seen again at 8 o'clock to 8:15 this morning. Patient is saying that he is strong and wants to go home today. He has not been out of bed and per nursing, patient has been much more oriented overnight and not requiring a sitter. Ambulation has not been tested; however. OBJECTIVE: VITAL SIGNS: Temperature 98.2, 91% on room air, pulse 88, blood pressure 148/88, respiratory rate 18. GENERAL: Patient has left eye ptosis. He uses his left hand to lift the left upper eyelid. Pupil on the right is reactive. He is awake, alert, and oriented to person; disoriented to place and date. He has slowed speech, but fluent. Patient has no use or respiratory or accessory muscles. HEENT: The face is symmetric. The tongue is midline. NECK: No JVD or thyromegaly. LUNGS: Clear to auscultation. No wheezing, rales, or rhonchi. HEART: S1, S2. Sinus rhythm. No murmurs, rubs, or gallops. ABDOMEN: Soft, nontender, and nondistended. Positive bowel sounds x4 quadrants. EXTREMITIES: No cyanosis, clubbing, or pitting edema. Patients Wallace catheter and nasogastric tube have been removed as of yesterday. LABORATORY DATA: Sodium 138, potassium 4.5, chloride 102, bicarb 30, BUN 21, creatinine 1.2, glucose 105. ASSESSMENT AND PLAN: This is a 70-year-old male with recurrent pituitary adenoma with secondary hypothyroidism and secondary adrenal insufficiency brought in by ambulance due to altered mental status. He was found to have severe hyponatremia with sodium of 113. IMPRESSION AND PLAN: * Acute metabolic encephalopathy resolved secondary to severe hyponatremia. Patient was managed by paper goods machine operator, Dr. Moreira, and was placed on 3% normal saline. Patients lisinopril and diuretics were held temporarily, as well as his DDAVP. Defer to nephrology for resumption of these medications. * Severe hyponatremia, resolved. Managed by nephrology. Defer to nephrology for resumption of his home medications. * Recurrent pituitary adenoma. did not want any workup at [facility] and did not want any MRI of the brain here. Patient is encouraged to follow up with his [place] specialist, especially his neurosurgeon and joint setter. * Secondary hypothyroidism due to pituitary adenoma. Resumed on his home dose of liothyronine. * Secondary adrenal insufficiency on hydrocortisone every a.m. and p.m. * Dysphagia secondary to altered mental status and acute encephalopathy, resolved. Swallow evaluation was done. He is now advanced on an oral diet. Nasogastric tube has been discontinued. * Disposition. Discharge home in one to two days pending physical therapy evaluation and further recommendations from nephrology and adjustment of his home medications. [facility]
--- NOTE | 2020-07-26 07:32 | IPN ---
DATE: 05/23/2020 SUBJECTIVE: Per overnight RN, the patient remains encephalopathic. He does not follow commands and required mittens on and was given one dose of Ativan at 3:45 in the morning. The patient still has Wallace catheter. He is still disoriented, able to say his name, but does not follow commands or keep his eyes open. Last sodium level was 136 from this morning. He remains afebrile. REVIEW OF SYSTEMS: Unable to obtain. OBJECTIVE: VITAL SIGNS: Blood pressure 122/78, arterial pressure of 96, 97% on 2 liters nasal cannula, respiratory rate 28, temperature 98.4. He had a T-max on May 23 of 101.3. Input of 1905, output of 1825. GENERAL: Patient is sedated. He currently is lethargic only able to say his name. He responds yes or no, but keeps his eyes closed. LUNGS: Diminished, but clear to auscultation. No wheezing or rales. HEART: S1, S2, sinus rhythm. ABDOMEN: Soft, nontender, and nondistended. Wallace catheter is in place. EXTREMITIES: No cyanosis or clubbing. CURRENT HOSPITAL MEDICATIONS: * Liothyronine 25 mg daily. * Lovenox 40 subcutaneous daily. * Acetaminophen 1300 mg daily. * Synthroid 50 mcg IV daily. * Hydrocortisone 40 mg every a.m. and 20 mg every p.m. * Lyrica 200 mg nasogastric tube two times a day. * Ativan 2 mg IV every one hour as needed for agitation and seizures. * Oxycodone 5 mg half-tab via NG tube every 12 hours as needed. TELEMETRY: Remains sinus rhythm. LABORATORY DATA: COVID-19 is negative. As of 05/21/2020, respiratory panel was negative. Urinalysis (UA) has trace leukocyte esterase, 22 WBCs, 1+ bacteria, and negative nitrites. Urine culture is pending. May 22 sodium was 129, potassium 3.7, chloride 92, bicarb 30, BUN 20, creatinine 1.1, glucose 86. May 23 CBC and metabolic panel are not available. May 21 WBC 8, hemoglobin 15, hematocrit 44, platelet count 263,000. ASSESSMENT AND PLAN: This is a 70-year-old male with history of recurrent pituitary adenoma status post surgery x4 and chemotherapy. Usually follows with an tour guide on chronic AndroGel, DDAVP, and liothyronine, and hydrocortisone with secondary hypothyroidism and secondary adrenal insufficiency. He presented with altered mental status found to have symptomatic severe hyponatremia with sodium level of 113. CURRENT ISSUES: * Severe hyponatremia presenting with blood pressure 113 currently 128. Sodium today is still pending. He is continued on his chronic hydrocortisone. * Nephrology has been consulted for management. Patient remains encephalopathic requiring mitts and a sitter. He had a fever or 101. Urinalysis and urine cultures pending. Until blood cultures are obtained, we will give Gram negative coverage with Zosyn 3.375 grams IV every six hours for seven days empirically. * Fever of 101. Urine culture is still pending. Urinalysis has WBCs and leukocyte esterase. Zosyn empirically until urine cultures are finalized. * Secondary hypothyroidism currently on Synthroid. * Secondary adrenal insufficiency on chronic hydrocortisone, which has been resumed. * Hypertension currently controlled avoiding thiazide and lisinopril due to soft blood pressure. * Recurrent pituitary tumor. Family wants to follow-up with [place] and declined MRI of the brain despite encephalopathy. * Acute metabolic encephalopathy secondary to severe hyponatremia slowly improving. * Diet currently nasogastric tube feedings with livestock nutrition territory manager. Will do a swallow evaluation today. If possible, discontinue the nasogastric tube. * Activity as tolerated. Physical therapy (PT), occupational therapy (OT) evaluation and treat. Out of bed to chair. * Sitter due to altered mental status. * Discontinue Wallace and nasogastric tube once mentation improves. * Deep vein thrombosis (DVT) prophylaxis with compression stockings. MTDD
--- NOTE | 2020-07-26 07:33 | IPN ---
DATE: 05/25/2020 Patient is seen and examined at the bedside. Chart has been reviewed. Patient this morning continues to complain of left ptosis that he has had before coming into the hospital. Patients refuses MRI of the brain and wants followup with his neurosurgeon and post secondary professional in [place]. Patient is much more awake and alert. He has no complaints of chest pain, pressure, tightness, shortness of breath, headache, changes in vision is chronic due to left ptosis. Patient is anxious to go home, tolerating his diet, he worked with physical therapy this morning in the room standing up at the bedside. No other issues per nursing overnight. Telemetry remains sinus rhythm. PHYSICAL EXAMINATION: Vital signs: Blood pressure 134/82, 97.9 temperature, 74 sinus rhythm, respiratory rate 18, 94% on room air. Generally: Patient is awake, alert, oriented to himself. Answers questions appropriately. Without respiratory distress, conversational dyspnea, no use of respiratory accessory muscles. He has a notable left ptosis. Lifts his left eyelid with his hand when asked to check for pupillary dilation. Face is otherwise symmetric. Tongue is midline. Dry mucous membranes. No jugular venous distention (JVD), thyromegaly. Lungs: Diminished but clear to auscultation. No wheezing, rales, or rhonchi. Heart: S1, S2, sinus rhythm. No murmurs, rubs, or gallops. Abdomen: Soft, nontender, nondistended. Positive bowel sounds. Wallace catheter in place. Extremities: No cyanosis or clubbing. LABORATORY DATA: White count 9, hemoglobin 15, hematocrit 46, platelet count 329, sodium 137, potassium 103, bicarbonate 29, BUN 21, creatinine 1.3, glucose of 96. ASSESSMENT AND PLAN: 70-year-old male with history of recurrent pituitary adenoma status post resection with secondary hypothyroidism, secondary adrenal insufficiency, brought in by ambulance to the emergency room (ER) due to acute encephalopathy, unresponsive, found to have severe symptomatic hyponatremia. IMPRESSION: 1. Severe hyponatremia, symptomatic with obtundation on arrival. Patient was initially admitted to the intensive care unit with sodium level of 113, adjusted with 3% normal saline, managed by engraver tire mold, Dr. Moreira. Patients hydrochlorothiazide, lisinopril, and DDAVP had been held. He is now currently with sodium level of 137 and back to his baseline mentation with persistent left ptosis. Patient is awaiting physical therapy/occupational therapy (PT/OT) clearance. His hydrochlorothiazide, lisinopril, and DDAVP has not been resumed by nephrology. insists on outpatient followup with his [place] specialist including his neurosurgeon as well as his post secondary professional. Once cleared by physical therapy, may discharge home. Patient may opt to followup with Dr. Moreira for his hyponatremia or followup in [place] with his post secondary professional and neurosurgeon. 2. Secondary hypothyroidism on supplementary thyroxine. 3. Secondary adrenal insufficiency. Blood pressure is well maintained on his twice a day dosing of hydrocortisone. 4. Left ptosis. Patients refuses to have an MRI of the brain done. She wants followup in [place]. CT of the head was unremarkable. Await physical therapy/occupational therapy (PT/OT) clearance and discharge home. [facility]
[2020-08-03 12:13] LABS: ALBUMIN 3.7 GM/DL (3.2-5.2); ALT/SGPT 23 U/L (12-78); BILIRUBIN,DIRECT 0.3 MG/DL (0.0-0.2); BLOOD UREA NITROGEN 23 MG/DL (7-18); CALCIUM LEVEL 8.3 MG/DL (8.8-10.2); CARBON DIOXIDE LEVEL 27 MEQ/L (21-32); CHLORIDE LEVEL 77 MEQ/L (98-107); CPK CREATINE PHOSPHOKINASE 422 U/L (39-308); CREATININE FOR GFR 1.01 MG/DL (0.70-1.30); FREE T4 0.84 NG/DL (0.76-1.46); GLOMERULAR FILTRATION RATE > 60.0 (>49); GLUCOSE, FASTING 80 MG/DL (70-100); MB/CK RELATIVE INDEX 0.95 (< OR =4); POTASSIUM SERUM 4.3 MEQ/L (3.5-5.1); SODIUM LEVEL 113 MEQ/L (136-145); THYROID STIMULATING HORMONE < 0.005 uIU/ML (0.358-3.740); TROPONIN I < 0.02 NG/ML (< 0.10)
[2020-08-11 10:03] LABS: CREATININE FOR GFR 1.32 MG/DL (0.70-1.30); GLOMERULAR FILTRATION RATE 57.3 (>49); POTASSIUM SERUM 3.9 MEQ/L (3.5-5.1)
[2020-08-11 10:04] LABS: CALCIUM LEVEL 9.1 MG/DL (8.8-10.2); CREATININE FOR GFR 1.3 MG/DL (0.70-1.30); GLOMERULAR FILTRATION RATE 58.3 (>49)
[2020-08-11 10:04] LABS: CALCIUM LEVEL 9.2 MG/DL (8.8-10.2)
[2020-08-11 10:04] LABS: BLOOD UREA NITROGEN 20 MG/DL (7-18); CALCIUM LEVEL 9.3 MG/DL (8.8-10.2); CARBON DIOXIDE LEVEL 28 MEQ/L (21-32); CHLORIDE LEVEL 100 MEQ/L (98-107); CREATININE FOR GFR 1.05 MG/DL (0.70-1.30); GLOMERULAR FILTRATION RATE > 60.0 (>49); GLUCOSE, FASTING 103 MG/DL (70-100); POTASSIUM SERUM 3.9 MEQ/L (3.5-5.1); SODIUM LEVEL 134 MEQ/L (136-145)
[2020-08-11 12:38] LABS: BLOOD UREA NITROGEN 19 MG/DL (7-18); CALCIUM LEVEL 9.2 MG/DL (8.8-10.2); CARBON DIOXIDE LEVEL 28 MEQ/L (21-32); CHLORIDE LEVEL 98 MEQ/L (98-107); CK-MB VALUE MASS < 1.0 NG/ML (<3.6); CPK CREATINE PHOSPHOKINASE 85 U/L (39-308); CREATININE FOR GFR 1.18 MG/DL (0.70-1.30); GLOMERULAR FILTRATION RATE > 60.0 (>49); GLUCOSE, FASTING 108 MG/DL (70-100); MB/CK RELATIVE INDEX 1.18 (< OR =4); POTASSIUM SERUM 4.3 MEQ/L (3.5-5.1); SODIUM LEVEL 132 MEQ/L (136-145); TROPONIN I < 0.02 NG/ML (< 0.10)
[2020-08-11 16:42] LABS: BLOOD UREA NITROGEN 19 MG/DL (7-18); CALCIUM LEVEL 9.1 MG/DL (8.8-10.2); CARBON DIOXIDE LEVEL 28 MEQ/L (21-32); CHLORIDE LEVEL 97 MEQ/L (98-107); CK-MB VALUE MASS < 1.0 NG/ML (<3.6); CPK CREATINE PHOSPHOKINASE 102 U/L (39-308); CREATININE FOR GFR 1.22 MG/DL (0.70-1.30); GLOMERULAR FILTRATION RATE > 60.0 (>49); GLUCOSE, FASTING 104 MG/DL (70-100); MB/CK RELATIVE INDEX 0.98 (< OR =4); POTASSIUM SERUM 4.4 MEQ/L (3.5-5.1); SODIUM LEVEL 132 MEQ/L (136-145); TROPONIN I < 0.02 NG/ML (< 0.10)
[2020-08-11 16:42] LABS: BLOOD UREA NITROGEN 21 MG/DL (7-18); CALCIUM LEVEL 8.9 MG/DL (8.8-10.2); CARBON DIOXIDE LEVEL 28 MEQ/L (21-32); CHLORIDE LEVEL 92 MEQ/L (98-107); CK-MB VALUE MASS 1.2 NG/ML (<3.6); CREATININE FOR GFR 1.26 MG/DL (0.70-1.30); FREE T3 1.8 PG/ML (2.2-4.0); FREE T4 0.75 NG/DL (0.76-1.46); GLOMERULAR FILTRATION RATE > 60.0 (>49); GLUCOSE, FASTING 96 MG/DL (70-100); NT-PRO BNP 96 PG/ML (<125); POTASSIUM SERUM 3.8 MEQ/L (3.5-5.1); SODIUM LEVEL 129 MEQ/L (136-145); THYROID STIMULATING HORMONE < 0.005 uIU/ML (0.358-3.740); TROPONIN I < 0.02 NG/ML (< 0.10)
[2020-08-11 16:42] LABS: BLOOD UREA NITROGEN 19 MG/DL (7-18); CALCIUM LEVEL 8.9 MG/DL (8.8-10.2); CARBON DIOXIDE LEVEL 27 MEQ/L (21-32); CHLORIDE LEVEL 94 MEQ/L (98-107); CK-MB VALUE MASS 1.4 NG/ML (<3.6); CPK CREATINE PHOSPHOKINASE 142 U/L (39-308); CREATININE FOR GFR 0.93 MG/DL (0.70-1.30); GLOMERULAR FILTRATION RATE > 60.0 (>49); GLUCOSE, FASTING 96 MG/DL (70-100); MB/CK RELATIVE INDEX 0.99 (< OR =4); POTASSIUM SERUM 4.4 MEQ/L (3.5-5.1); SODIUM LEVEL 129 MEQ/L (136-145); TROPONIN I < 0.02 NG/ML (< 0.10)
[2020-08-11 16:42] LABS: BLOOD UREA NITROGEN 20 MG/DL (7-18); C REACTIVE PROTEIN QUANTITATIV 9.89 MG/DL (0.00-0.30); CARBON DIOXIDE LEVEL 30 MEQ/L (21-32); CHLORIDE LEVEL 92 MEQ/L (98-107); CREATININE FOR GFR 1.17 MG/DL (0.70-1.30); GLOMERULAR FILTRATION RATE > 60.0 (>49); GLUCOSE, FASTING 86 MG/DL (70-100); POTASSIUM SERUM 3.7 MEQ/L (3.5-5.1); SODIUM LEVEL 129 MEQ/L (136-145)
[2020-08-12 11:48] LABS: BLOOD UREA NITROGEN 19 MG/DL (7-18); CALCIUM LEVEL 8.3 MG/DL (8.8-10.2); CARBON DIOXIDE LEVEL 24 MEQ/L (21-32); CHLORIDE LEVEL 80 MEQ/L (98-107); CREATININE FOR GFR 1.07 MG/DL (0.70-1.30); GLOMERULAR FILTRATION RATE > 60.0 (>49); GLUCOSE, FASTING 66 MG/DL (70-100); POTASSIUM SERUM 4.8 MEQ/L (3.5-5.1); SODIUM LEVEL 113 MEQ/L (136-145)
[2020-08-12 11:57] LABS: OSMOLALITY SERUM 240 MOSM/KG (280-301)
[2020-08-13 16:58] LABS: BLOOD UREA NITROGEN 18 MG/DL (7-18); CARBON DIOXIDE LEVEL 24 mmol/L (20-29); CHLORIDE LEVEL 83 MEQ/L (98-107); CREATININE FOR GFR 0.82 MG/DL (0.70-1.30); GLOMERULAR FILTRATION RATE > 60.0 (>49); GLUCOSE, FASTING 73 MG/DL (70-100); POTASSIUM SERUM 3.4 MEQ/L (3.5-5.1); SODIUM LEVEL 117 MEQ/L (136-145)
[2020-08-13 17:01] LABS: BLOOD UREA NITROGEN 16 MG/DL (7-18); CREATININE FOR GFR 1.08 MG/DL (0.70-1.30); GLOMERULAR FILTRATION RATE > 60.0 (>49); GLUCOSE, FASTING 75 MG/DL (70-100)
[2020-08-13 17:02] LABS: CALCIUM LEVEL 8.5 MG/DL (8.8-10.2); CARBON DIOXIDE LEVEL 29 mmol/L (20-29); CHLORIDE LEVEL 84 MEQ/L (98-107); CORTISOL AM 11.3 UG/DL (4.3-22.4); CPK CREATINE PHOSPHOKINASE 523 U/L (39-308); POTASSIUM SERUM 4.4 MEQ/L (3.5-5.1); SODIUM LEVEL 120 MEQ/L (136-145)
[2020-08-13 17:51] LABS: BLOOD UREA NITROGEN 17 MG/DL (7-18); CREATININE FOR GFR 1.15 MG/DL (0.70-1.30); GLOMERULAR FILTRATION RATE > 60.0 (>49); GLUCOSE, FASTING 73 MG/DL (70-100)
[2020-08-13 17:52] LABS: CALCIUM LEVEL 8.7 MG/DL (8.8-10.2); CARBON DIOXIDE LEVEL 28 mmol/L (20-29); CHLORIDE LEVEL 83 MEQ/L (98-107); POTASSIUM SERUM 3.9 MEQ/L (3.5-5.1); SODIUM LEVEL 119 MEQ/L (136-145)
[2020-08-13 17:53] LABS: BLOOD UREA NITROGEN 16 MG/DL (7-18); CHLORIDE LEVEL 88 MEQ/L (98-107); CREATININE FOR GFR 1.12 MG/DL (0.70-1.30); GLOMERULAR FILTRATION RATE > 60.0 (>49); GLUCOSE, FASTING 89 MG/DL (70-100); POTASSIUM SERUM 4.2 MEQ/L (3.5-5.1); SODIUM LEVEL 122 MEQ/L (136-145)
[2020-08-13 17:54] LABS: CALCIUM LEVEL 8.7 MG/DL (8.8-10.2); CARBON DIOXIDE LEVEL 24 mmol/L (20-29)
[2020-08-13 17:55] LABS: BLOOD UREA NITROGEN 16 MG/DL (7-18); CALCIUM LEVEL 8.7 MG/DL (8.8-10.2); CARBON DIOXIDE LEVEL 25 mmol/L (20-29); CHLORIDE LEVEL 90 MEQ/L (98-107); CREATININE FOR GFR 1.04 MG/DL (0.70-1.30); GLOMERULAR FILTRATION RATE > 60.0 (>49); GLUCOSE, FASTING 108 MG/DL (70-100); POTASSIUM SERUM 3.9 MEQ/L (3.5-5.1); SODIUM LEVEL 125 MEQ/L (136-145)
[2020-08-13 17:56] LABS: BLOOD UREA NITROGEN 17 MG/DL (7-18); CALCIUM LEVEL 9.1 MG/DL (8.8-10.2); CARBON DIOXIDE LEVEL 26 mmol/L (20-29); CHLORIDE LEVEL 91 MEQ/L (98-107); CREATININE FOR GFR 1.11 MG/DL (0.70-1.30); GLOMERULAR FILTRATION RATE > 60.0 (>49); GLUCOSE, FASTING 102 MG/DL (70-100); POTASSIUM SERUM 3.9 MEQ/L (3.5-5.1); SODIUM LEVEL 126 MEQ/L (136-145)
[2020-08-13 17:57] LABS: BLOOD UREA NITROGEN 18 MG/DL (7-18); CARBON DIOXIDE LEVEL 26 mmol/L (20-29); CHLORIDE LEVEL 92 MEQ/L (98-107); CREATININE FOR GFR 1.09 MG/DL (0.70-1.30); GLOMERULAR FILTRATION RATE > 60.0 (>49); GLUCOSE, FASTING 112 MG/DL (70-100); POTASSIUM SERUM 3.8 MEQ/L (3.5-5.1); SODIUM LEVEL 126 MEQ/L (136-145)
[2020-08-13 17:58] LABS: CALCIUM LEVEL 8.5 MG/DL (8.8-10.2)
[2020-08-18 20:36] LABS: VENOUS PH 7.443 UNITS (7.330-7.430)
[2020-08-18 20:37] LABS: VENOUS BASE EXCESS 2.9 (-2.0-2.0); VENOUS HCO3 27.3 MEQ/L (23.0-27.0); VENOUS O2 SATURATION 94.2 % (60.0-80.0); VENOUS PARTIAL PRESSURE CO2 40.8 mmHg (38.0-50.0); VENOUS PARTIAL PRESSURE O2 67.5 mmHg (30.0-50.0); VENOUS TOTAL CO2 28.5 MEQ/L (24.0-28.0); VENOUS VENT MODE R/A
[2020-08-18 20:38] LABS: BLOOD UREA NITROGEN 21 MG/DL (7-18); GLUCOSE, FASTING 105 MG/DL (70-100)
[2020-08-18 20:39] LABS: CALCIUM LEVEL 8.9 MG/DL (8.8-10.2); CARBON DIOXIDE LEVEL 30 mmol/L (20-29); CHLORIDE LEVEL 102 MEQ/L (98-107); CREATININE FOR GFR 1.25 MG/DL (0.70-1.30); GLOMERULAR FILTRATION RATE > 60.0 (>49); POTASSIUM SERUM 4.5 MEQ/L (3.5-5.1); SODIUM LEVEL 138 MEQ/L (136-145)
[2020-08-18 20:58] LABS: CREATININE FOR GFR 1.27 MG/DL (0.70-1.30); GLOMERULAR FILTRATION RATE 59.9 (>49); POTASSIUM SERUM 3.7 MEQ/L (3.5-5.1)
[2020-08-18 20:59] LABS: CALCIUM LEVEL 8.9 MG/DL (8.8-10.2)
[2020-08-18 20:59] LABS: CREATININE FOR GFR 1.27 MG/DL (0.70-1.30); GLOMERULAR FILTRATION RATE 59.9 (>49)
[2020-08-18 21:00] LABS: CALCIUM LEVEL 9.2 MG/DL (8.8-10.2); POTASSIUM SERUM 4.7 MEQ/L (3.5-5.1)
[2020-08-18 21:01] LABS: CALCIUM LEVEL 8.7 MG/DL (8.8-10.2); CREATININE FOR GFR 1.57 MG/DL (0.70-1.30); GLOMERULAR FILTRATION RATE 46.9 (>49)
[2020-08-18 23:12] LABS: CALCIUM LEVEL 9.1 MG/DL (8.8-10.2); CREATININE FOR GFR 1.35 MG/DL (0.70-1.30); GLOMERULAR FILTRATION RATE 55.8 (>49); POTASSIUM SERUM 3.9 MEQ/L (3.5-5.1)
[2020-08-18 23:12] LABS: CALCIUM LEVEL 8.5 MG/DL (8.8-10.2); CREATININE FOR GFR 1.42 MG/DL (0.70-1.30); GLOMERULAR FILTRATION RATE 52.6 (>49); POTASSIUM SERUM 4.1 MEQ/L (3.5-5.1)
[2020-08-18 23:12] LABS: MAGNESIUM LEVEL 1.9 MG/DL (1.8-2.4)
[2020-08-18 23:31] LABS: CREATININE FOR GFR 1.3 MG/DL (0.70-1.30); GLOMERULAR FILTRATION RATE 58.3 (>49); POTASSIUM SERUM 4.3 MEQ/L (3.5-5.1)
[2020-08-18 23:32] LABS: CALCIUM LEVEL 8.8 MG/DL (8.8-10.2)
[2020-08-19 04:12] LABS: CALCIUM LEVEL 8.6 MG/DL (8.8-10.2); CREATININE FOR GFR 1.31 MG/DL (0.70-1.30); GLOMERULAR FILTRATION RATE 57.8 (>49); POTASSIUM SERUM 4.1 MEQ/L (3.5-5.1)
[2020-08-19 04:12] LABS: BLOOD UREA NITROGEN 21 MG/DL (7-18); C REACTIVE PROTEIN QUANTITATIV 3.12 MG/DL (0.00-0.30); CALCIUM LEVEL 8.7 MG/DL (8.8-10.2); CARBON DIOXIDE LEVEL 30 MEQ/L (21-32); CHLORIDE LEVEL 105 MEQ/L (98-107); CREATININE FOR GFR 1.16 MG/DL (0.70-1.30); GLOMERULAR FILTRATION RATE > 60.0 (>49); GLUCOSE, FASTING 94 MG/DL (70-100); POTASSIUM SERUM 3.9 MEQ/L (3.5-5.1); SODIUM LEVEL 141 MEQ/L (136-145); THYROID STIMULATING HORMONE < 0.005 uIU/ML (0.358-3.740)
== END 2020-05-26 07:00 | disposition home or self-care (01) | DRG 640 ==
LOC: M ED 16:05 → M ICU 22:27
PROVIDERS: ADMIT General Practice; ATTEND General Practice
DX: E87.1 Hypo-osmolality and hyponatremia (principal); G93.41 Metabolic encephalopathy; E27.40 Unspecified adrenocortical insufficiency; E23.2 Diabetes insipidus; N39.0 Urinary tract infection, site not specified; N18.3 Chronic kidney disease, stage 3 (moderate); D35.2 Benign neoplasm of pituitary gland; E03.8 Other specified hypothyroidism; H02.402 Unspecified ptosis of left eyelid; B95.7 Other staphylococcus as the cause of diseases classified elsewhere; Z79.899 Other long term (current) drug therapy

== ENCOUNTER → 2020-05-28 | Outpatient (REF) | payer OTHER ==
[2020-07-13 07:08] LABS: CALCIUM LEVEL 8.8 MG/DL (8.8-10.2); CREATININE FOR GFR 1.27 MG/DL (0.70-1.30); GLOMERULAR FILTRATION RATE 59.9 (>49)
== END ==
LOC: M PLALAB 12:15
PROVIDERS: ATTEND Internal Medicine Endocrinology, Diabetes & Metabolism
DX: D49.7 Neoplasm of unspecified behavior of endocrine glands and other parts of nervous system (principal)

== ENCOUNTER → 2020-06-09 | Outpatient (CLI) | payer OTHER ==
[2020-06-09 13:16] LABS: BLOOD UREA NITROGEN 12 MG/DL (7-18); CARBON DIOXIDE LEVEL 30 MEQ/L (21-32); CHLORIDE LEVEL 107 MEQ/L (98-107); CREATININE FOR GFR 1.24 MG/DL (0.70-1.30); GLOMERULAR FILTRATION RATE > 60.0 (>49); GLUCOSE, FASTING 80 MG/DL (70-100); POTASSIUM SERUM 4.5 MEQ/L (3.5-5.1); SODIUM LEVEL 142 MEQ/L (136-145)
== END ==
LOC: M PLALAB 10:05
PROVIDERS: ATTEND Internal Medicine Endocrinology, Diabetes & Metabolism
DX: D49.7 Neoplasm of unspecified behavior of endocrine glands and other parts of nervous system (principal)

== ENCOUNTER → 2020-09-25 | Outpatient (CLI) | payer OTHER ==
[2020-09-25 18:10] LABS: HEMATOCRIT 55.6 % (42.0-52.0); HEMOGLOBIN 17.7 g/dl (13.5-17.5); MEAN CORPUSCULAR HEMOGLOBIN 29.3 pg (27.0-33.0); MEAN CORPUSCULAR HGB CONC 31.8 g/dl (32.0-36.5); MEAN CORPUSCULAR VOLUME 92.1 fl (80.0-96.0); PLATELET COUNT, AUTOMATED 306 10^3/uL (150-450); RED BLOOD COUNT 6.04 10^6/uL (4.30-6.10); WHITE BLOOD COUNT 9.6 10^3/uL (4.0-10.0)
[2020-09-25 18:20] LABS: CALCIUM LEVEL 9.2 MG/DL (8.8-10.2); CREATININE FOR GFR 1.27 MG/DL (0.70-1.30); FREE T4 0.9 NG/DL (0.76-1.46); GLOMERULAR FILTRATION RATE 59.9 (>49); POTASSIUM SERUM 3.8 MEQ/L (3.5-5.1)
== END ==
LOC: M PLALAB 14:58
PROVIDERS: ATTEND Internal Medicine Endocrinology, Diabetes & Metabolism
DX: D49.7 Neoplasm of unspecified behavior of endocrine glands and other parts of nervous system (principal)

== ENCOUNTER 2020-10-27 00:58 | Inpatient (IN) | payer OTHER ==
[~2020-10-27] VITALS: Ht 162.6 cm; Wt 85.6 kg
[~2020-10-27 00:58] MED LIST changes: -LISI10TA15; +LISI10TA15 PO
[2020-10-27] MEDS ORDERED: OMEP-221 PO (01:18)
[2020-10-27] MEDS ORDERED: DEXA1TA PO (01:18)
[2020-10-27 01:49] LABS: BASO # 0.1 10^3/uL (0.0-0.2); BASO % 0.9 % (0.0-1.0); EOS # 0.1 10^3/uL (0.0-0.5); EOS % 0.9 % (0.0-3.0); HEMATOCRIT 48.7 % (42.0-52.0); HEMOGLOBIN 16.4 g/dl (13.5-17.5); LYMPH # 2.2 10^3/uL (1.5-5.0); LYMPH % 17.4 % (24.0-44.0); MEAN CORPUSCULAR HEMOGLOBIN 28.6 pg (27.0-33.0); MEAN CORPUSCULAR HGB CONC 33.7 g/dl (32.0-36.5); MEAN CORPUSCULAR VOLUME 84.8 fl (80.0-96.0); MONO # 0.8 10^3/uL (0.0-0.8); MONO % 6.7 % (0.0-5.0); NEUTROPHILS # 8.9 10^3/uL (1.5-8.5); NEUTROPHILS % 70.6 % (36.0-66.0); PLATELET COUNT, AUTOMATED 245 10^3/uL (150-450); RED BLOOD COUNT 5.74 10^6/uL (4.30-6.10); WHITE BLOOD COUNT 12.6 10^3/uL (4.0-10.0)
[2020-10-27 02:11] LABS: BLOOD UREA NITROGEN 29 MG/DL (7-18); CARBON DIOXIDE LEVEL 28 MEQ/L (21-32); CHLORIDE LEVEL 88 MEQ/L (98-107); CREATININE FOR GFR 1.12 MG/DL (0.70-1.30); GLOMERULAR FILTRATION RATE > 60.0 (>49); GLUCOSE, FASTING 114 MG/DL (70-100); POTASSIUM SERUM 4.2 MEQ/L (3.5-5.1); SODIUM LEVEL 125 MEQ/L (136-145)
[2020-10-27] MEDS ORDERED: MORPHINE 4 MG/ML 1ML VIAL/SYRINGE (J2270) IV ONE (02:15)
[2020-10-27] MEDS ORDERED: NS 1,000 ML IV SCH (02:45)
--- NOTE | 2020-10-27 03:35 | REPVR ---
PROCEDURE INFORMATION: Exam: CT Head Without Contrast Exam date and time: 10/27/2020 2:56 AM Age: 70 years old Clinical indication: Pain; Headache; Additional info: Headache, HX pituitary tumor TECHNIQUE: Imaging protocol: Computed tomography of the head without contrast. Radiation optimization: All CT scans at this facility use at least one of these dose optimization techniques: automated exposure control; mA and/or kV adjustment per patient size (includes targeted exams where dose is matched to clinical indication); or iterative reconstruction. COMPARISON: CT Head without contrast 05/20/2020 5:14 PM FINDINGS: Brain: There is minimal patchy low attenuation of deep white matter. There is mild prominence of the peripheral sulci. Cerebral ventricles: There is mild prominence of the central ventricular system for age. Bones/joints: Unremarkable. No acute fracture. Paranasal sinuses: Minimal sphenoid sinus mucosal thickening and minimal rounded right maxillary sinus mucosal thickening. Mastoid air cells: Visualized mastoid air cells are well aerated. Soft tissues: Unremarkable. IMPRESSION: 1. There has been no change since 05/20/2020 with minimal chronic ischemic white matter change and mild atrophy. 2. Minimal sphenoid and right maxillary sinus disease which is also similar. Electronically signed by: Manjit Valentine On 10/27/2020 03:36:14 AM
[2020-10-27 04:06] LABS: FREE T4 0.97 NG/DL (0.76-1.46); THYROID STIMULATING HORMONE < 0.005 uIU/ML (0.358-3.740)
[2020-10-27 04:07] LABS: OSMOLALITY SERUM 263 MOSM/KG (280-301)
[2020-10-27] MEDS ORDERED: ASPI81TA26 PO (04:07)
[2020-10-27] MEDS ORDERED: LEVO100T5 PO (04:07)
[2020-10-27] MEDS ORDERED: D31000TA2 PO (04:07)
[2020-10-27] MEDS ORDERED: BUPR150T4 PO (04:10)
[2020-10-27] MEDS ORDERED: TEST1.622 TOP (04:10)
[2020-10-27 05:10] LABS: BLOOD UREA NITROGEN 27 MG/DL (7-18); CALCIUM LEVEL 8.2 MG/DL (8.8-10.2); CARBON DIOXIDE LEVEL 32 MEQ/L (21-32); CHLORIDE LEVEL 88 MEQ/L (98-107); CREATININE FOR GFR 1.15 MG/DL (0.70-1.30); GLOMERULAR FILTRATION RATE > 60.0 (>49); GLUCOSE, FASTING 101 MG/DL (70-100); POTASSIUM SERUM 3.9 MEQ/L (3.5-5.1); SODIUM LEVEL 127 MEQ/L (136-145)
--- NOTE | 2020-10-27 05:41 | HPEPDOC ---
[facility] Medical History & Physical Date of Admission Oct 27, 2020 Date of Service: Oct 27, 2020 History and Physical CHIEF COMPLAINT: headache HISTORY OF PRESENT ILLNESS: 70-year-old male with a past medical history of pituitary adenoma status post resection, chemotherapy and radiation, secondary hypothyroidism, secondary adrenal insufficiency. Presents to ED with a 3 day hx of headache. He states that the headache is frontal, non radiating, without visual changes. Furthermore, patient repots nausea with one episode of vomiting yesterday. Patient has been taking sips of gatorade but has had slightly reduced PO intake. He has had prior admissions for hyponatremia, last in 06/05 with a Na level of 113 along with metabolic encephalopathy due to pituitary adenoma and secondary adrenal insufficiency. Upon correction of his sodium, patients lisinopril, HCTZ and DDAVP were resumed. Patient states that he has had headac hes on and off since being diagnosed with the pituitary adenoma. Patient denies blurred vision, chest pain, palpitations, n/v/d, subjective fevers and chills. Labs reviewed: Na 125, Cl 88, osmolality 263, TSH < 0.005. WBC 12.6. CT head wo contrast showing no acute changes, no mass shift. Patient was given a dose of morphine which improved headache, now resolved. I spoke to patient's , Brittanie Summers. Patient is followed at [facility] for pituitary adenoma, and has upcoming labs and MRI imaging. Currently undergoing immunotherapy. Patient and have declined MRI at this time. PAST MEDICAL HISTORY: Pituitary adenoma s/p resection, chemo, rad now receiving immunotherapy. Receive s care at [facility] in [place], [place]. 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 REVIEW OF SYSTEMS: 10 point ROS completed, as per HPI HOME MEDICATIONS: Please see below. PHYSICAL EXAMINATION: VITAL SIGNS: please see below General: NAD, comfortable HEENT: chronic L eyelid droop, chronic L pupil mydriasis Neck: supple, normal ROM, no JVD Respiratory: lungs CTAB, no wheeze, no rales, no crackles CVS: RRR, normal S1, S2, no murmurs Abdo: soft, no masses, no hepatosplenomegaly, BS+, no rebound tenderness Extremities: no edema, pulses 2+ MSK: no joint deformities, normal ROM Neuro: no focal neuro deficits, moving all 4 extremities, CN2-12 intact. Strength 5/5 in all 4 extremities. No nystagmus. Psych: calm, cooperative, AAO x 3 LABORATORY DATA: See below. IMAGING: CT head wo contrast (10/27/19): 1. There has been no change since 05/20/2020 with minimal chronic ischemic white matter change and mild atrophy. 2. Minimal sphenoid and right maxillary sinus disease which is also similar. MICROBIOLOGY: Please see below. ASSESSMENT: 70-year-old male with a past medical history of pituitary adenoma status post resection, chemotherapy and radiation, secondary hypothyroidism, secondary adrenal insufficiency. Presents to ED with a 3 day hx of headache. Admitted for hyponatremia to hospitalist service. . PLAN: #hyponatremia - asymptomatic - na 125 on arrival - received 1L at 150 cc/hr, with repeat Na of 127 - patient has been admitted with severe hyponatremia and encephalopathy in 06/05 - will c/w IV NS at 125 cc/hr - will hold HCTZ, lisinopril and DDAVP at this time #Secondary hypothyroidism - resume home dose levothyroxine #Secondary adrenal insufficiency - resume dexamethasone 4 mg BID - blood pressure appropriate #Headache, L ptosis, mydryasis - CT unremarkable - d/w patient and , they would not like an MRI to be done on this admission, as they receive follow up with [facility]. DVT ppx: SCDs, TEDs, lovenox. Vital Signs Vital Signs Date Time Temp Pulse Resp B/P (MAP) Pulse Ox O2 Delivery O2 Flow Rate FiO2 10/27/20 03:31 20 97 Room Air 10/27/20 03:18 10/27/20 00:58 97.6 66 Laboratory Data Labs 24H Laboratory Tests 2 10/27/20 01:21: Immature Granulocyte % (Auto) 3.5H, Neutrophils (%) (Auto) 70.6H, Lymphocytes (%) (Auto) 17.4L, Monocytes (%) (Auto) 6.7H, Eosinophils (%) (Auto) 0.9, Basophils (%) (Auto) 0.9, Neutrophils # (Auto) 8.9H, Lymphocytes # (Auto) 2.2, Monocytes # (Auto) 0.8, Eosinophils # (Auto) 0.1, Basophils # (Auto) 0.1, Nucleated Red Blood Cells % (auto) 0.0, Anion Gap 9, Glomerular Filtration Rate > 60.0, Osmolality 263L, Calcium Level 9.0, Thyroid Stimulating Hormone (TSH) < 0.005L, Free Thyroxine 0.97 10/27/20 04:00: Urine Random Osmolality 733, Urine Random Creatinine 145.0, Urine Random Sodium 126 10/27/20 04:31: Anion Gap 7L, Glomerular Filtration Rate > 60.0, Calcium Level 8.2L CBC/BMP Laboratory Tests 10/27/20 01:21 10/27/20 04:31 Home Medications Scheduled Aspirin (Aspirin EC) 81 Mg Tablet.dr, 81 MG PO DAILY Atorvastatin Calcium (Lipitor) 20 Mg Tab, 20 MG PO DAILY Bupropion Hcl (Bupropion Xl) 150 Mg Tab.er.24h, 150 MG PO DAILY Buspirone HCl (Buspirone HCl) 30 Mg Tab, 30 MG PO BID Cholecalciferol (Vitamin D3) (Vitamin D3) 1,000 Unit Tablet, 5,000 UNITS PO TID Clonazepam (Klonopin) 1 Mg Tab, 1 MG PO BID Cyanocobalamin (Vitamin B-12) (Vitamin B-12) 100 Mcg Tab, 100 MCG PO DAILY Desmopressin Acetate (Desmopressin Acetate) 0.1 Mg Tablet, 0.1 MG PO BID Desvenlafaxine Succinate (Pristiq) 100 Mg Tab, 100 MG PO DAILY Hydrocortisone (Cortef) 10 Mg Tablet, 40 MG PO QAM Hydrocortisone (Cortef) 10 Mg Tablet, 20 MG PO DAILY AFTERNOON Krill/Om-3/Dha/Epa/Phospho/Ast (Krill Oil 500 mg Softgel) 1 Cap Cap, 1 CAP PO DAILY Levothyroxine Sodium (Levothyroxine Sodium) 100 Mcg Tablet, 100 MCG PO QAM Liothyronine Sodium (Liothyronine Sodium) 25 Mcg Tab, 25 MG PO DAILY Lisinopril/Hydrochlorothiazide (Lisinopril-Hctz 10-12.5 mg Tab) 1 Tab Tab, 1 TAB PO DAILY Omeprazole (Omeprazole) 40 Mg Capsule.dr, 40 MG PO BID Prasterone (Dhea)/Calcium Carb (Dhea 50 mg Tablet) 1 Each Tablet, 100 MG PO DAILY Pregabalin (Lyrica) 200 Mg Capsule, 200 MG PO BID Quetiapine Fumarate (Quetiapine Fumarate) 25 Mg Tablet, 12.5 MG PO BID am and afternoon Quetiapine Fumarate (Quetiapine Fumarate) 25 Mg Tablet, 25 MG PO QHS Temozolomide (Temozolomide) 100 Mg Capsule, 100 MG PO TID Testosterone (Testosterone) 75 Gm Gel..threading machine feeder automatic, 4 PUMP TOP DAILY Scheduled PRN Dexamethasone (Dexamethasone) 1 Mg Tablet, 4 MG PO BID PRN for PAIN Oxycodone HCl (Roxicodone) 5 Mg Tablet, 5 MG PO Q4HP PRN for PAIN SCALE 6-10 Sildenafil Citrate (Viagra) 100 Mg Tablet, 100 MG PO DAILYPRN PRN for erectile dysfunction 1 hour before sexual activity Allergies Coded Allergies: Penicillins (Verified Allergy, Intermediate, rash, 07/16/19) amoxicillin (Verified Allergy, Intermediate, rash, 07/16/19) ARMEN MATOS MD Oct 27, 2020 05:41
[2020-10-27] MEDS ORDERED: MAALOX 30 ML SUSP *UDC PO PRN (05:45)
[2020-10-27] MEDS ORDERED: MOM 30ML SUSPENSION UDC PO PRN (05:45)
[2020-10-27] MEDS ORDERED: ACETAMINOPHEN TAB 650MG DOSE (2X325MG) PO PRN (05:45)
[2020-10-27] MEDS ORDERED: PREG300C PO (05:58)
[2020-10-27] MEDS ORDERED: ACET-683 PO (06:01)
[2020-10-27] MEDS ORDERED: MAGN400T2 PO (06:01)
[2020-10-27 06:04] LABS: RSV AMPLIFICATION NEGATIVE (NEGATIVE)
[2020-10-27] MEDS: HEPARIN SOD (PORCINE) 5000UNITS/ML 1ML VIAL/SYRINGE SC SCH ×3 (06:18→21:34)
[2020-10-27] MEDS: NS 1,000 ML IV SCH ×3 (06:19→18:44)
[2020-10-27] MEDS: DOCUSATE SODIUM 100MG CAPSULE PO SCH ×2 (08:09→21:32)
[2020-10-27] MEDS: busPIRone 10 MG TAB PO SCH ×2 (08:10→21:32)
[2020-10-27] MEDS: oxyCODONE 5MG TAB PO PRN ×3 (08:11→21:33)
[2020-10-27] MEDS: clonazePAM 1 MG TAB PO SCH ×2 (08:11→21:32)
[2020-10-27] MEDS: PREGABALIN 100 MG CAP (LYRICA) PO SCH ×2 (08:11→21:33)
[2020-10-27] MEDS: MAGNESIUM OXIDE 400 MG TAB (MAG-OX) PO SCH (08:11)
[2020-10-27] MEDS ORDERED: KETOROLAC 30 MG/ML 1ML VIAL IV ONE (09:15)
[2020-10-27] MEDS: LIOTHYRONINE 25 MCG TAB PO SCH (09:21)
[2020-10-27] MEDS: DESVENLAFAXINE ER 50 MG TABLET (PRISTIQ) PO SCH (09:21)
[2020-10-27] MEDS: LEVOTHYROXINE 100MCG TABLET (0.1MG) PO SCH (09:21)
[2020-10-27] MEDS: buPROPion **XL** TABLET 150MG (WELLBUTRIN XL) PO SCH (09:21)
[2020-10-27] MEDS: QUEtiapine FUMARATE 12.5 MG HALF-TAB PO SCH ×2 (09:22→13:32)
--- NOTE | 2020-10-27 10:29 | IPN ---
PROGRESS NOTE DATE: 10/27/2020 SUBJECTIVE: Ross is seen while rounding for the Hospitalist. Admitted with intractable headache. He has a history of pituitary resection with chemotherapy, radiation therapy and now immunotherapy. He has secondary hypothyroidism secondary to adrenal insufficiency. He says the only thing keeping him in the office are now his headache, no fever, chills or neck stiffness. Oral medications are not controlling his head pain. PHYSICAL EXAMINATION: VITAL SIGNS: Blood pressure 143/80, afebrile. GENERAL: Looks mildly uncomfortable. NECK: Supple. LUNGS: Clear. HEART: Regular rhythm. ABDOMEN: Soft, nontender. NEUROLOGIC: No focal weakness. LABORATORY DATA: Sodium is up to 127, BUN 27, creatinine 1.1. Free T4 is normal (TSH was ordered as well but the patient has had his pituitary resected so we would not expect that to be a valid test). White count is 12.6, hemoglobin is 16, platelets are 245,000. IMPRESSION: 1. Intractable headache. Will add Ketorolac and IV Morphine to his regimen. This is essentially for pain control. 2. Hyponatremia, he has secondary adrenal insufficiency. He is on Dexamethasone which we will continue. 3. Hypothyroidism. Free T4 normal on current dose of Cytomel, T3 is pending.
[2020-10-27] MEDS: MORPHINE 4 MG/ML 1ML VIAL/SYRINGE (J2270) IV PRN ×2 (10:51→18:40)
[2020-10-27 13:15] VITALS: BP 154/91
[2020-10-27 17:11] LABS: BLOOD UREA NITROGEN 28 MG/DL (7-18); CALCIUM LEVEL 8.5 MG/DL (8.8-10.2); CARBON DIOXIDE LEVEL 32 MEQ/L (21-32); CHLORIDE LEVEL 90 MEQ/L (98-107); CREATININE FOR GFR 1.12 MG/DL (0.70-1.30); GLOMERULAR FILTRATION RATE > 60.0 (>49); GLUCOSE, FASTING 110 MG/DL (70-100); POTASSIUM SERUM 4.8 MEQ/L (3.5-5.1); SODIUM LEVEL 125 MEQ/L (136-145)
[2020-10-27] MEDS ORDERED: METOCLOPRAMIDE INJ 10MG/2ML VIAL (J2765 PER 1) IV ONE (19:45)
[2020-10-27] MEDS ORDERED: QUEtiapine FUMARATE 25 MG TAB PO SCH (21:00)
[2020-10-27] MEDS ORDERED: ASPIRIN 81 MG ENTERIC TAB PO SCH (21:00)
[2020-10-27] MEDS ORDERED: ATORVASTATIN 20 MG TAB PO SCH (21:00)
[2020-10-27 22:00] VITALS: BP 145/88
[2020-10-28] MEDS: LEVOTHYROXINE 100MCG TABLET (0.1MG) PO SCH (05:06)
[2020-10-28] MEDS: NS 1,000 ML IV SCH (05:06)
[2020-10-28] MEDS: HEPARIN SOD (PORCINE) 5000UNITS/ML 1ML VIAL/SYRINGE SC SCH ×2 (05:06→13:06)
[2020-10-28 05:48] LABS: HEMOGLOBIN 16.7 g/dl (13.5-17.5); MEAN CORPUSCULAR HEMOGLOBIN 28.6 pg (27.0-33.0); MEAN CORPUSCULAR HGB CONC 32.7 g/dl (32.0-36.5); MEAN CORPUSCULAR VOLUME 87.3 fl (80.0-96.0); PLATELET COUNT, AUTOMATED 236 10^3/uL (150-450); RED BLOOD COUNT 5.84 10^6/uL (4.30-6.10); WHITE BLOOD COUNT 10.7 10^3/uL (4.0-10.0)
[2020-10-28 06:00] VITALS: BP 140/89
[2020-10-28 06:18] LABS: BLOOD UREA NITROGEN 27 MG/DL (7-18); CALCIUM LEVEL 8.9 MG/DL (8.8-10.2); CARBON DIOXIDE LEVEL 27 MEQ/L (21-32); CHLORIDE LEVEL 104 MEQ/L (98-107); CREATININE FOR GFR 1.18 MG/DL (0.70-1.30); GLOMERULAR FILTRATION RATE > 60.0 (>49); GLUCOSE, FASTING 83 MG/DL (70-100); POTASSIUM SERUM 4.4 MEQ/L (3.5-5.1); SODIUM LEVEL 134 MEQ/L (136-145)
[2020-10-28 08:58] VITALS: BP 140/89
[2020-10-28] MEDS: LIOTHYRONINE 25 MCG TAB PO SCH (08:58)
[2020-10-28] MEDS: PREGABALIN 100 MG CAP (LYRICA) PO SCH (08:58)
[2020-10-28] MEDS: DOCUSATE SODIUM 100MG CAPSULE PO SCH (08:58)
[2020-10-28] MEDS: QUEtiapine FUMARATE 12.5 MG HALF-TAB PO SCH ×2 (08:58→12:35)
[2020-10-28] MEDS: busPIRone 10 MG TAB PO SCH (08:59)
[2020-10-28] MEDS: buPROPion **XL** TABLET 150MG (WELLBUTRIN XL) PO SCH (08:59)
[2020-10-28] MEDS: MAGNESIUM OXIDE 400 MG TAB (MAG-OX) PO SCH (08:59)
[2020-10-28] MEDS: clonazePAM 1 MG TAB PO SCH (08:59)
[2020-10-28] MEDS: DESVENLAFAXINE ER 50 MG TABLET (PRISTIQ) PO SCH (08:59)
[2020-10-28] MEDS ORDERED: amLODIPine 5 MG TAB PO SCH (09:00)
[2020-10-28] MEDS ORDERED: AMLO1TAB24 PO (12:25)
--- NOTE | 2020-10-28 12:46 | DS.PDOC ---
Discharge Summary General Date of Admission Oct 27, 2020 at 05:37 Discharge Summary PROCEDURES PERFORMED DURING STAY: [None]. 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 Receives care at [facility] in [place], [place]. 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 HOSPITAL COURSE: 70-year-old male with a past medical history of pituitary adenoma since 2003 status post resection, chemotherapy and radiation now started on immunotherapy in Sep 2020, who follows in [place] with neurosurgery medical oncology, secondary hypothyroidism, diabetes insipidus, secondary adrenal insufficiency, recurrent hyponatremia resented to ED with a 3 day hx of intractable headache worse than his usual headaches which he has since his pituitary macroadenoma diagnosis years before. He was found to be hyponatremic to 125. His ddavp, lisinopril and hctz was stopped. As per . His most recent medication that was restarted after the May 2020 admission was lisinopril/ HCTZ which was started about 3 to 4 weeks ago. His Na was normal in Sep 2020. So I feel his hyponatremia may have been precipitated by the lisinopril/ hctz which was stopped. He was started on amlodipine for his hypertension. On the recommendation of his [place] physicians he was also started on dexamethasone. His headache improved after correction of his Sodium and starting him on Dexamethasone. Upon correction of his sodium, patient's DDAVP was resumed. DISCHARGE MEDICATIONS: Please see below. ALLERGIES: Please see below. PHYSICAL EXAMINATION ON DISCHARGE: VITAL SIGNS: Please see below. GENERAL: Sitting up in bed in no discomfort. NECK: Supple. No thyromegaly LUNGS: Clear. HEART: Regular rhythm. No rub or murmur or gallop ABDOMEN: Soft, nontender. NEUROLOGIC: No focal weakness. LABORATORY DATA: Please see below. ACTIVITY: [As tolerated]. DIET: As tolerated DISCHARGE PLAN: Home DISCHARGE INSTRUCTIONS: PMD in [address] Veronica in 2 weeks ITEMS TO FOLLOWUP ON ON OUTPATIENT: Basic metabolic profile. DISCHARGE CONDITION: [Stable]. TIME SPENT ON DISCHARGE: 35 minutes. Vital Signs/I&Os Vital Signs Date Time Temp Pulse Resp B/P (MAP) Pulse Ox O2 Delivery O2 Flow Rate FiO2 10/28/20 08:58 72 140/89 10/28/20 06:00 97.6 20 98 10/27/20 22:03 Room Air I&O- Last 24 Hours up to 6 AM 10/28/20 06:00 Intake Total 3585 ml Output Total 4290 ml Balance -705 ml Laboratory Data Labs 24H Laboratory Tests 2 10/27/20 16:29: Anion Gap 3L, Glomerular Filtration Rate > 60.0, Calcium Level 8.5L 10/28/20 05:32: Anion Gap 3L, Glomerular Filtration Rate > 60.0, Calcium Level 8.9, Nucleated Red Blood Cells % (auto) 0.0 CBC/BMP Laboratory Tests 10/27/20 16:29 10/28/20 05:32 Discharge Medications Scheduled Amlodipine Besylate (Amlodipine Besylate) 5 Mg Tablet, 5 MG PO DAILY Aspirin (Aspirin EC) 81 Mg Tablet.dr, 81 MG PO QHS, (Reported) Atorvastatin Calcium (Lipitor) 20 Mg Tab, 20 MG PO QHS, (Reported) Bupropion Hcl (Bupropion Xl) 150 Mg Tab.er.24h, 150 MG PO DAILY, (Reported) Buspirone HCl (Buspirone HCl) 30 Mg Tab, 30 MG PO BID, (Reported) Cholecalciferol (Vitamin D3) (Vitamin D3) 1,000 Unit Tablet, 5,000 UNITS PO TID, (Reported) Clonazepam (Klonopin) 1 Mg Tab, 1 MG PO BID, (Reported) Cyanocobalamin (Vitamin B-12) (Vitamin B-12) 100 Mcg Tab, 100 MCG PO DAILY, (Reported) Desmopressin Acetate (Desmopressin Acetate) 0.1 Mg Tablet, 0.1 MG PO BID, (Reported) Desvenlafaxine Succinate (Pristiq) 100 Mg Tab, 100 MG PO DAILY, (Reported) Dexamethasone (Dexamethasone) 1 Mg Tablet, 4 MG PO DAILY, (Reported) Krill/Om-3/Dha/Epa/Phospho/Ast (Krill Oil 500 mg Softgel) 1 Cap Cap, 1 CAP PO DAILY, (Reported) Levothyroxine Sodium (Levothyroxine Sodium) 100 Mcg Tablet, 100 MCG PO QAM, (Reported) Liothyronine Sodium (Liothyronine Sodium) 25 Mcg Tab, 25 MCG PO DAILY, (Reported) Magnesium Oxide (Magnesium Oxide) 400 Mg Tablet, 400 MG PO DAILY, (Reported) Omeprazole (Omeprazole) 40 Mg Capsule.dr, 40 MG PO BID, (Reported) Pregabalin (Pregabalin) 300 Mg Capsule, 300 MG PO BID, (Reported) Quetiapine Fumarate (Quetiapine Fumarate) 25 Mg Tablet, 12.5 MG PO BID, (Reported) am and afternoon Quetiapine Fumarate (Quetiapine Fumarate) 25 Mg Tablet, 25 MG PO QHS, (Reported) Testosterone (Testosterone) 75 Gm Gel..pension adviser, 4 PUMP TOP DAILY, (Reported) Scheduled PRN Acetaminophen (Acetaminophen) 500 Mg Tablet, 500 MG PO Q6H PRN for PAIN, (Reported) Oxycodone HCl (Roxicodone) 5 Mg Tablet, 5 MG PO Q4HP PRN for PAIN SCALE 6-10, (Reported) Allergies Coded Allergies: Penicillins (Verified Allergy, Intermediate, rash, 07/16/19) amoxicillin (Verified Allergy, Intermediate, rash, 07/16/19) OH GALLEGO MD Oct 28, 2020 12:46
[2020-10-28 14:00] VITALS: BP 140/86
== END 2020-10-28 16:42 | disposition home or self-care (01) | DRG 641 ==
LOC: M ED 00:58 → M ED INP 05:37 → M MSPAV 13:07
PROVIDERS: ADMIT Family Medicine; ATTEND Internal Medicine Nephrology
DX: E87.1 Hypo-osmolality and hyponatremia (principal); E23.2 Diabetes insipidus; E27.40 Unspecified adrenocortical insufficiency; N18.30 Chronic kidney disease, stage 3 unspecified; I12.9 Hypertensive chronic kidney disease with stage 1 through stage 4 chronic kidney disease, or unspecified chronic kidney disease; E03.8 Other specified hypothyroidism; H57.04 Mydriasis; H02.402 Unspecified ptosis of left eyelid; Z79.82 Long term (current) use of aspirin; Z79.899 Other long term (current) drug therapy; Z88.0 Allergy status to penicillin

== ENCOUNTER → 2020-10-31 | Outpatient (CLI) | payer OTHER ==
[~2020-10-31] MED LIST changes: +ACET-683 PO; +AMLO1TAB24 PO; +ASPI81TA26 PO; +BUPR150T4 PO; +D31000TA2 PO; +DEXA1TA PO; +LEVO100T5 PO; +MAGN400T2 PO; +OMEP-221 PO; +PREG300C PO; -QUET1TAB7 PO; +QUET25TA3 PO; +TEMO100C17 PO; -TEMO1CAP PO; +TEST1.622 TOP
[2020-10-31 15:56] LABS: BLOOD UREA NITROGEN 29 MG/DL (7-18); CALCIUM LEVEL 9.2 MG/DL (8.8-10.2); CARBON DIOXIDE LEVEL 33 MEQ/L (21-32); CHLORIDE LEVEL 100 MEQ/L (98-107); CREATININE FOR GFR 1.19 MG/DL (0.70-1.30); GLOMERULAR FILTRATION RATE > 60.0 (>49); GLUCOSE, FASTING 100 MG/DL (70-100); POTASSIUM SERUM 4.2 MEQ/L (3.5-5.1); SODIUM LEVEL 137 MEQ/L (136-145)
== END ==
LOC: M PLALAB 13:02
PROVIDERS: ATTEND Internal Medicine Nephrology
DX: D49.7 Neoplasm of unspecified behavior of endocrine glands and other parts of nervous system (principal)

== ENCOUNTER → 2020-11-14 | Outpatient (CLI) | payer OTHER ==
[2020-11-14 17:24] LABS: HEMATOCRIT 44.6 % (42.0-52.0); HEMOGLOBIN 14.9 g/dl (13.5-17.5); MEAN CORPUSCULAR HEMOGLOBIN 29.7 pg (27.0-33.0); MEAN CORPUSCULAR HGB CONC 33.4 g/dl (32.0-36.5); PLATELET COUNT, AUTOMATED 161 10^3/uL (150-450); RED BLOOD COUNT 5.01 10^6/uL (4.30-6.10); WHITE BLOOD COUNT 6.1 10^3/uL (4.0-10.0)
[2020-11-14 17:43] LABS: ALBUMIN 2.9 GM/DL (3.2-5.2); ALT/SGPT 48 U/L (12-78); BILIRUBIN,TOTAL 0.4 MG/DL (0.2-1.0); BLOOD UREA NITROGEN 22 MG/DL (7-18); CALCIUM LEVEL 8.2 MG/DL (8.8-10.2); CARBON DIOXIDE LEVEL 29 MEQ/L (21-32); CHLORIDE LEVEL 102 MEQ/L (98-107); CREATININE FOR GFR 1.14 MG/DL (0.70-1.30); GLOMERULAR FILTRATION RATE > 60.0 (>49); GLUCOSE, FASTING 191 MG/DL (70-100); IMMUNOGLOBULIN A 71.8 MG/DL (70-400); POTASSIUM SERUM 3.7 MEQ/L (3.5-5.1); SODIUM LEVEL 140 MEQ/L (136-145); TOTAL PROTEIN 5.2 GM/DL (6.4-8.2)
[2020-11-14 17:53] LABS: EOSINOPHILS 1 % (0-3); LYMPHOCYTES 18 % (16-44); MONOCYTES 1 % (0-5); NEUTROPHILS 75 % (28-66); PLATELET ESTIMATE NORMAL (NORMAL)
== END ==
LOC: M PLALAB 15:20
PROVIDERS: ATTEND Nurse Practitioner
DX: D35.2 Benign neoplasm of pituitary gland (principal); R19.7 Diarrhea, unspecified

== ENCOUNTER → 2020-12-01 | Outpatient (CLI) | payer OTHER ==
[2020-12-01 13:56] LABS: BASO # 0.1 10^3/uL (0.0-0.2); BASO % 0.5 % (0.0-1.0); EOS # 0.1 10^3/uL (0.0-0.5); EOS % 0.5 % (0.0-3.0); HEMATOCRIT 42.2 % (42.0-52.0); HEMOGLOBIN 13.9 g/dl (13.5-17.5); LYMPH # 0.9 10^3/uL (1.5-5.0); LYMPH % 9.4 % (24.0-44.0); MEAN CORPUSCULAR HEMOGLOBIN 29.6 pg (27.0-33.0); MEAN CORPUSCULAR HGB CONC 32.9 g/dl (32.0-36.5); MEAN CORPUSCULAR VOLUME 89.8 fl (80.0-96.0); MONO # 0.4 10^3/uL (0.0-0.8); MONO % 3.7 % (0.0-8.0); NEUTROPHILS # 7.6 10^3/uL (1.5-8.5); NEUTROPHILS % 81.1 % (36.0-66.0); PLATELET COUNT, AUTOMATED 190 10^3/uL (150-450); WHITE BLOOD COUNT 9.4 10^3/uL (4.0-10.0)
[2020-12-01 14:29] LABS: ALBUMIN 2.2 GM/DL (3.2-5.2); ALT/SGPT 77 U/L (12-78); BILIRUBIN,TOTAL 0.5 MG/DL (0.2-1.0); BLOOD UREA NITROGEN 18 MG/DL (7-18); CALCIUM LEVEL 8.3 MG/DL (8.8-10.2); CARBON DIOXIDE LEVEL 32 MEQ/L (21-32); CHLORIDE LEVEL 101 MEQ/L (98-107); CREATININE FOR GFR 0.99 MG/DL (0.70-1.30); GLOMERULAR FILTRATION RATE > 60.0 (>49); GLUCOSE, FASTING 131 MG/DL (70-100); POTASSIUM SERUM 3.5 MEQ/L (3.5-5.1); SODIUM LEVEL 141 MEQ/L (136-145); TOTAL PROTEIN 4.9 GM/DL (6.4-8.2)
== END ==
LOC: M PLALAB 10:08
PROVIDERS: ATTEND Nurse Practitioner
DX: D35.2 Benign neoplasm of pituitary gland (principal)

== ENCOUNTER → 2021-01-08 | Outpatient (CLI) | payer OTHER ==
[~2021-01-08] MED LIST changes: +BUPR150T12 PO; -BUPR150T4 PO
[2021-01-08 17:10] LABS: BLOOD UREA NITROGEN 15 MG/DL (7-18); CALCIUM LEVEL 7.9 MG/DL (8.8-10.2); CARBON DIOXIDE LEVEL 30 MEQ/L (21-32); CHLORIDE LEVEL 103 MEQ/L (98-107); CREATININE FOR GFR 1.09 MG/DL (0.70-1.30); GLOMERULAR FILTRATION RATE > 60.0 (>49); GLUCOSE, FASTING 226 MG/DL (70-100); POTASSIUM SERUM 3.8 MEQ/L (3.5-5.1); SODIUM LEVEL 139 MEQ/L (136-145)
[2021-01-08 17:36] LABS: ALBUMIN 2.6 GM/DL (3.2-5.2); ALT/SGPT 62 U/L (12-78); BILIRUBIN,TOTAL 0.5 MG/DL (0.2-1.0); BLOOD UREA NITROGEN 16 MG/DL (7-18); CALCIUM LEVEL 8.3 MG/DL (8.8-10.2); CARBON DIOXIDE LEVEL 30 MEQ/L (21-32); CHLORIDE LEVEL 103 MEQ/L (98-107); CREATININE FOR GFR 1.11 MG/DL (0.70-1.30); GLOMERULAR FILTRATION RATE > 60.0 (>49); GLUCOSE, FASTING 237 MG/DL (70-100); MAGNESIUM LEVEL 2.3 MG/DL (1.8-2.4); POTASSIUM SERUM 3.9 MEQ/L (3.5-5.1); SODIUM LEVEL 141 MEQ/L (136-145); TOTAL PROTEIN 5.3 GM/DL (6.4-8.2)
== END ==
LOC: M PLALAB 15:11
PROVIDERS: ATTEND Family Medicine
DX: E87.1 Hypo-osmolality and hyponatremia (principal); D49.7 Neoplasm of unspecified behavior of endocrine glands and other parts of nervous system; E03.9 Hypothyroidism, unspecified

== ENCOUNTER → 2021-01-26 | Outpatient (REF) | payer OTHER | LOC: M LAB REF 12:08 | PROVIDERS: ATTEND Family Medicine | DX: C7B.8 Other secondary neuroendocrine tumors (principal); E23.0 Hypopituitarism ==

== ENCOUNTER 2021-02-23 12:35 | Emergency (ER) | payer OTHER ==
[~2021-02-23] VITALS: Ht 162.6 cm; Wt 84.1 kg
[2021-02-23] MEDS ORDERED: NS 1,000 ML IV ONE ×3 (13:20→16:00)
[2021-02-23 13:38] LABS: BASO # 0.1 10^3/uL (0.0-0.2); BASO % 1.5 % (0.0-1.0); HEMATOCRIT 47.1 % (42.0-52.0); HEMOGLOBIN 15.7 g/dl (13.5-17.5); LYMPH # 1.2 10^3/uL (1.5-5.0); LYMPH % 14.8 % (24.0-44.0); MEAN CORPUSCULAR HGB CONC 33.3 g/dl (32.0-36.5); MEAN CORPUSCULAR VOLUME 93.1 fl (80.0-96.0); MONO # 0.3 10^3/uL (0.0-0.8); MONO % 4.1 % (2.0-8.0); NEUTROPHILS % 74.6 % (36.0-66.0); PLATELET COUNT, AUTOMATED 160 10^3/uL (150-450); RED BLOOD COUNT 5.06 10^6/uL (4.30-6.10)
--- NOTE | 2021-02-23 13:41 | REP ---
INDICATION: Altered Mental Status. COMPARISON: 05/22/2020. TECHNIQUE: Single portable AP view of the chest was performed. FINDINGS: There is elevation of the right hemidiaphragm unchanged. There is mild bibasilar fibro atelectatic change without evidence of acute infiltrate. Cardiac silhouette is prominent, unchanged. Mediastinal silhouette is unchanged. IMPRESSION: No acute pulmonary disease.Stable chronic findings. <Electronically signed by Giles Luna > 02/23/21 [id number]
[2021-02-23 14:18] LABS: ACETAMINOPHEN LEVEL 2.7 UG/ML (10.0-30.0); ALBUMIN 2.8 GM/DL (3.2-5.2); ALT/SGPT 47 U/L (12-78); BILIRUBIN,DIRECT 0.2 MG/DL (0.0-0.2); BILIRUBIN,TOTAL 0.6 MG/DL (0.2-1.0); BLOOD UREA NITROGEN 16 MG/DL (7-18); CALCIUM LEVEL 8.5 MG/DL (8.8-10.2); CARBON DIOXIDE LEVEL 27 MEQ/L (21-32); CHLORIDE LEVEL 104 MEQ/L (98-107); CK-MB VALUE MASS 1.2 NG/ML (<3.6); CPK CREATINE PHOSPHOKINASE 22 U/L (39-308); ETHYL ALCOHOL (ETHANOL) < 0.003 % (0.000-0.010); GLOMERULAR FILTRATION RATE > 60.0 (>49); GLUCOSE, FASTING 223 MG/DL (70-100); MB/CK RELATIVE INDEX 5.45 (< OR =4); SALICYLATE LEVEL < 1.7 MG/DL (5.0-30.0); SODIUM LEVEL 140 MEQ/L (136-145); THYROID STIMULATING HORMONE < 0.005 uIU/ML (0.358-3.740); TOTAL PROTEIN 5.5 GM/DL (6.4-8.2); TROPONIN I < 0.02 NG/ML (< 0.10)
[2021-02-23 14:29] LABS: OSMOLALITY SERUM 294 MOSM/KG (280-301)
[2021-02-23] MEDS ORDERED: KCL 10MEQ/100ML SWI (KRUN) 10 MEQ in IV 1 EA IV ONE ×2 (14:35→16:00)
[2021-02-23 14:51] LABS: FREE T4 0.88 NG/DL (0.76-1.46)
[2021-02-23 15:00] LABS: AMPHETAMINES LEVEL URINE NEGATIVE (NEGATIVE); BARBITURATES URINE NEGATIVE (NEGATIVE); BENZODIAZEPINES URINE NEGATIVE (NEGATIVE); CANNABINOIDS URINE NEGATIVE (NEGATIVE); COCAINE METABOLITE URINE NEGATIVE (NEGATIVE); METHADONE URINE NEGATIVE (NEGATIVE); OPIATES URINE NEGATIVE (NEGATIVE); PHENCYCLIDINE URINE NEGATIVE (NEGATIVE)
[2021-02-23 15:41] LABS: MAGNESIUM LEVEL 1.8 MG/DL (1.8-2.4)
[2021-02-23] MEDS ORDERED: ALPR2TAB3 PO (17:35)
[2021-02-23 17:53] LABS: BLOOD UREA NITROGEN 14 MG/DL (7-18); CALCIUM LEVEL 7.4 MG/DL (8.8-10.2); CARBON DIOXIDE LEVEL 27 MEQ/L (21-32); CHLORIDE LEVEL 111 MEQ/L (98-107); CREATININE FOR GFR 0.89 MG/DL (0.70-1.30); GLOMERULAR FILTRATION RATE > 60.0 (>49); GLUCOSE, FASTING 148 MG/DL (70-100); POTASSIUM SERUM 3.6 MEQ/L (3.5-5.1); SODIUM LEVEL 143 MEQ/L (136-145)
[2021-02-23 19:00] VITALS: BP 151/93
--- NOTE | 2021-02-23 20:12 | ECGEPIP ---
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
== END 2021-02-23 19:13 | disposition home or self-care (01) ==
LOC: M ED 12:35
DX: E87.2 Acidosis (principal); R19.7 Diarrhea, unspecified; E87.6 Hypokalemia; I10 Essential (primary) hypertension; F32.9 Major depressive disorder, single episode, unspecified; D35.2 Benign neoplasm of pituitary gland; E87.1 Hypo-osmolality and hyponatremia; Z79.890 Hormone replacement therapy; Z79.82 Long term (current) use of aspirin; Z79.899 Other long term (current) drug therapy; Z88.0 Allergy status to penicillin

== ENCOUNTER 2021-03-01 10:30 | Inpatient (IN) | payer OTHER, MEDICARE ==
[~2021-03-01] VITALS: Ht 162.6 cm; Wt 84.1 kg
[2021-03-01] MEDS ORDERED: NS 1,000 ML IV SCH (10:35)
[2021-03-01 11:22] LABS: BASO # 0.1 10^3/uL (0.0-0.2); BASO % 0.6 % (0.0-1.0); EOS % 0.1 % (0.0-3.0); HEMATOCRIT 45.7 % (42.0-52.0); HEMOGLOBIN 15.4 g/dl (13.5-17.5); LYMPH % 9.6 % (24.0-44.0); MEAN CORPUSCULAR HEMOGLOBIN 30.2 pg (27.0-33.0); MEAN CORPUSCULAR HGB CONC 33.7 g/dl (32.0-36.5); MEAN CORPUSCULAR VOLUME 89.6 fl (80.0-96.0); MONO # 0.4 10^3/uL (0.0-0.8); MONO % 4.3 % (2.0-8.0); PLATELET COUNT, AUTOMATED 147 10^3/uL (150-450); WHITE BLOOD COUNT 9.9 10^3/uL (4.0-10.0)
[2021-03-01 11:39] LABS: ALBUMIN 2.4 GM/DL (3.2-5.2); BILIRUBIN,DIRECT 0.3 MG/DL (0.0-0.2); BILIRUBIN,TOTAL 0.7 MG/DL (0.2-1.0); TOTAL PROTEIN 4.8 GM/DL (6.4-8.2)
[2021-03-01] MEDS ORDERED: KCL 10MEQ/100ML SWI (KRUN) 10 MEQ in IV 1 EA IV ONE (12:20)
[2021-03-01] MEDS ORDERED: PREG100CA PO (13:42)
[2021-03-01] MEDS ORDERED: VITA500038 PO (13:42)
[2021-03-01] MEDS ORDERED: DESV100T3 PO (13:42)
[2021-03-01] MEDS ORDERED: AMLO1TAB24 PO (13:42)
[2021-03-01] MEDS ORDERED: DIPH2.5T14 PO (13:42)
--- NOTE | 2021-03-01 14:31 | REP ---
INDICATION: abd pain COMPARISON: 02/23/2007. TECHNIQUE: CT Scan of the abdomen and pelvis was performed without intravenous contrast. Sagittal and coronal reconstruction images performed. FINDINGS: Lung bases: There is bibasilar fibro atelectatic change. Liver: Grossly unremarkable. Gallbladder: There are gallstones in the gallbladder. Spleen: Grossly unremarkable. Adrenals: Normal. Pancreas: Grossly unremarkable.. Kidneys: There is a punctate calcification in the right upper pole collecting system. There is no hydronephrosis bilaterally. Ureters demonstrate no dilatation or calculus. Small and large bowel: Grossly unremarkable. Free fluid: None. Abdominal aorta: No aneurysm. Adenopathy: None. Appendix: Not inflamed. Osseous structures: There are degenerative changes of the spine without compression deformity. Pelvis: No mass. No bladder calculus seen. IMPRESSION: Gallstones in a nondistended gallbladder. No CT findings of acute pathology in the abdomen or pelvis. <Electronically signed by Giles Luna > 03/01/21 [id number]
[2021-03-01] MEDS ORDERED: ACETAMINOPHEN 500 MG TAB PO PRN (15:30)
--- NOTE | 2021-03-01 15:42 | HPEPDOC ---
[facility] Medical History & Physical Date of Admission March 01, 2021 Date of Service: March 01, 2021 History and Physical addendum to H&P: 70 y/o M w pmh pituitary adenoma, s/p resection with postop left pupil mydriasis and ptosis, chemo, RT, secondary hypothyroidism/adrenal insufficiency on decadron, CKD3, chronic hyponatremia on ddavp, recieves immunorx at [facility] Dr. Bruno copper plater [phone], developed diarrhea 7-12x/day voluminous watery w/o blood or mucus since the end of January when pt received immunorx, and has refused to drink gatorade and eat bananas, with recurrent falls at home. In the ER, pt was found to have hypokalemia, mild hyponatremia na 132, admitted as an inpt for ivf and electrolyte replacement with ARU screen. Immunotherapy-induced diarrhea Hypokalemia due to diarrhea Hyponatremia due to diarrhea Pituitary tumor secondary hypothyroidism secondary adrenal insufficiency HTN uncontrolled plan: covid-19 negative. gi panel pending. ivf, k ca mg supplementation until normal fall precautions assisted ambulation only ARU screen resume home meds Vital Signs Vital Signs Date Time Temp Pulse Resp B/P (MAP) Pulse Ox O2 Delivery O2 Flow Rate FiO2 03/01/21 13:45 94 153/88 (109) 94 03/01/21 10:52 97.4 18 Room Air Laboratory Data Labs 24H Laboratory Tests 2 03/01/21 11:03: Immature Granulocyte % (Auto) 4.4H, Neutrophils (%) (Auto) 81.0H, Lymphocytes (%) (Auto) 9.6L, Monocytes (%) (Auto) 4.3, Eosinophils (%) (Auto) 0.1, Basophils (%) (Auto) 0.6, Neutrophils # (Auto) 8.0, Lymphocytes # (Auto) 1.0L, Monocytes # (Auto) 0.4, Eosinophils # (Auto) 0.0, Basophils # (Auto) 0.1, Nucleated Red Blood Cells % (auto) 0.0, Total Bilirubin 0.7, Direct Bilirubin 0.3H, Aspartate Amino Transf (AST/SGOT) 20, Alanine Aminotransferase (ALT/SGPT) 41, Alkaline Phosphatase 77, Total Protein 4.8L, Albumin 2.4L, Albumin/Globulin Ratio 1.0, Lipase 111 03/01/21 11:10: POC Glucose (Misc Panel) 165H, POC Sodium (Misc Panel) 132L, POC Potassium (Misc Panel) 2.7*L, POC Chloride (Misc Panel) 91L, POC Total CO2 (Misc Panel) 30.0H, POC Blood Urea Nitrogen (Misc Panel 11, POC Ionized Calcium (Misc Panel) 4.4L, POC Creatinine (Misc Panel) 0.8, POC Hematocrit (Misc Panel) 46.0 CBC/BMP Laboratory Tests 03/01/21 11:03 Microbiology Microbiology 03/01/21 Gastrointestinal Tract Panel (PCR), Received Pending 03/01/21 Respiratory Virus Panel (PCR) (MARTELL) - Final, Complete Home Medications Scheduled Amlodipine Besylate (Amlodipine Besylate) 5 Mg Tablet, 5 MG PO DAILY Aspirin (Aspirin EC) 81 Mg Tablet.dr, 81 MG PO QHS Atorvastatin Calcium (Lipitor) 20 Mg Tab, 20 MG PO QHS Bupropion Hcl (Bupropion Xl) 150 Mg Tab.er.24h, 150 MG PO DAILY Buspirone HCl (Buspirone HCl) 30 Mg Tab, 30 MG PO BID Cholecalciferol (Vitamin D3) (Vitamin D3) 125 Mcg Tablet, 125 MCG PO DAILY Clonazepam (Klonopin) 1 Mg Tab, 1 MG PO BID Desmopressin Acetate (Desmopressin Acetate) 0.1 Mg Tablet, 0.1 MG PO BID Desvenlafaxine Succinate (Desvenlafaxine Succinate ER) 100 Mg Tab.er.24h, 100 MG PO DAILY Dexamethasone (Dexamethasone) 1 Mg Tablet, 3 MG PO DAILY Levothyroxine Sodium (Levothyroxine Sodium) 100 Mcg Tablet, 100 MCG PO QAM Liothyronine Sodium (Liothyronine Sodium) 25 Mcg Tab, 25 MCG PO DAILY Magnesium Oxide (Magnesium Oxide) 400 Mg Tablet, 400 MG PO DAILY Omeprazole (Omeprazole) 40 Mg Capsule.dr, 40 MG PO BID Pregabalin (Lyrica) 100 Mg Capsule, 300 MG PO BID Quetiapine Fumarate (Quetiapine Fumarate) 25 Mg Tablet, 12.5 MG PO BID am and afternoon Quetiapine Fumarate (Quetiapine Fumarate) 25 Mg Tablet, 25 MG PO QHS Testosterone (Testosterone) 75 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, 4 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 DAILY Scheduled PRN Acetaminophen (Acetaminophen) 500 Mg Tablet, 500 MG PO Q6H PRN for PAIN Diphenoxylate HCl/Atropine (Diphenoxylate-Atrop 2.5-0.025) 1 Each Tablet, 1 TAB PO QID PRN for DIARRHEA Allergies Coded Allergies: Penicillins (Verified Allergy, Intermediate, rash, 07/16/19) amoxicillin (Verified Allergy, Intermediate, rash, 07/16/19) A-FIB/CHADSVASC A-FIB History Current/History of A-Fib/PAF?: No Current PO Anticoag Therapy: No Age/Risk Factor Scoring CHADSVASC: CHADSVASC Response (Comments) Value Age Risk Factor Age 65-74 years old 1 Gender Risk Factor Male 0 Hx of CHF No 0 Hx of HTN Yes 1 Hx of Stroke/TIA/or VTE No 0 Hx of Diabetes No 0 Hx of Vascular Disease No 0 Total 2 Treatment Treatment ordered: NONE MICK STAUFFER MD March 01, 2021 15:42
[2021-03-01] MEDS ORDERED: CALCIUM GLUCONATE 1,000 MG in D5W MINI-BAG PLUS 100 ML IV ONE (16:00)
[2021-03-01 17:16] VITALS: BP 136/87
--- NOTE | 2021-03-01 17:21 | HPE ---
HISTORY AND PHYSICAL DATE OF ADMISSION: 03/01/2021 CHIEF COMPLAINT: Diarrhea. HISTORY OF PRESENT ILLNESS: This is a 70-year-old male who follows at [facility] in [place] with Dr. Knight, water truck driver, phone number , had a recent colonoscopy by Dr. Gamez, relief pilot, at with negative findings, presents to the emergency room with more than three week history of ongoing diarrhea worsened over the past three days. On Tuesday, he had nine bowel movements, Tuesday twelve and today, Tuesday, five without fever, chills, nausea or vomiting. The patient has been refusing to take supplements at home and refuses to drink Gatorade and bananas as instructed by his . He complains of recurrent falls at home and had a fall in the bathroom, hitting his abdomen on the bathtub without any head trauma or loss of consciousness. brought him into the ER, was found to be hypokalemic with potassium of 2.7, hyponatremic with sodium of 132 but normal creatinine of 0.8. The hospitalist was asked to admit the patient for diarrhea as a result of his immunotherapy being given for his history of pituitary adenomas, status post resection, had previously received chemotherapy and radiation and has history of secondary hypothyroidism secondary to renal insufficiency. In the ER, the patient is delirious, unable to converse, History is obtained from the patient's . PAST MEDICAL HISTORY: 1. Pituitary adenoma, status post resection, chemotherapy, radiation secondary to hypothyroidism, secondary to renal insufficiency, currently receiving immunotherapy at [facility] with Dr. Knight, water truck driver, phone number [phone]. 2. Secondary hypothyroidism. 3. History of recurrent hyponatremia due to dehydration, diarrhea as a result of immunotherapy. 4. Chronic kidney disease, stage 3. 5. 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 6. Chronic left pupil mydriasis. PAST SURGICAL HISTORY: Resection of the pituitary adenoma. 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 Health care proxy is the patient's who is the primary caregiver. FAMILY HISTORY: Father , age 66 with bone cancer. Mother is still alive, age 95 in [place] with heart problems. HOME MEDICATIONS: 1. Acetaminophen 500 q.6 as needed for pain. 2. Norvasc 5 mg daily. 3. Aspirin 81 q.h.s. 4. Atorvastatin 20 mg q.h.s. 5. Bupropion 150 daily. 6. Buspirone 30 mg b.i.d. 7. Clonazepam 1 mg b.i.d. 8. Desmopressin 0.1 mg b.i.d. 9. Decadron 3 mg daily. 10. Lomotil one tablet q.i.d. as needed. 11. Synthroid 100 mcg daily. 12. Liothyronine 25 mcg daily. 13. Mag oxide 400 daily. 14. Lyrica 300 b.i.d. 15. Seroquel 12.5 b.i.d. 16. Quetiapine 25 mg q.h.s. 17. Vitamin D 125 mcg daily. 18. Desvenlafaxine succinate ER 100 mg daily. 19. Prilosec 40 b.i.d. 20. Testosterone pump 75 mcg gel daily. ALLERGIES: PENICILLIN AND AMOXICILLIN. REVIEW OF SYSTEMS: As per HPI, 12-point system otherwise negative. PHYSICAL EXAMINATION: VITAL SIGNS: Temperature 97.4, pulse 94, sinus rhythm, respiratory rate 18, blood pressure 153/88, 94% on room air. GENERAL: Awake, alert and oriented to person only. The patient is delirious. He recognizes his . He does not know where he is and he is tangential. Generally, face is symmetric. Tongue is midline. Moist mucous membranes. No conversational dyspnea, no pallor, icterus or jaundice. HEENT: Pupils are reactive. He has chronic left mydriasis, left eye ptosis. No JVD or thyromegaly. LUNGS: Clear to auscultation, no wheezing, rales or rhonchi. HEART: S1, S2, sinus rhythm. ABDOMEN: Obese, soft, slight very mild ecchymotic area along the bilateral lower quadrant from recent fall. EXTREMITIES: He has a bruise underneath the right knee. No pitting edema. LABORATORY DATA: White count 9.9, hemoglobin 15, hematocrit 45, platelet count 147. Sodium 132, potassium 2.7, chloride 91, bicarb 30, BUN 11, creatinine 0.8. Ionized calcium 4.5, glucose 165. T bili 0.7, direct bili 0.3, AST 20, ALT 41, alk phos 77, total protein 4.8, albumin 2.4. Lipase 111. Microbiology: Respiratory panel negative. GI panel pending. CT, abdomen and pelvis, 03/01/2021: Gallstones and nondistended gallbladder, no CT findings for acute pathology in the abdomen or pelvis. ASSESSMENT AND PLAN: This is a 70-year-old, FULL CODE, with history of pituitary adenoma, status post resection, chemoradiation, with secondary hypothyroidism secondary to adrenal insufficiency, chronic kidney disease stage 3, with chronic left eye ptosis due to nerve damage following pituitary adenoma resection, chronic left pupil mydriasis, recurrent hyponatremia, follows at [facility], water truck driver, Dr. Knight, , had a recent immunotherapy subsequent diarrhea as adverse effect. The patient will be admitted as an inpatient for two midnights for the following acute issues. 1. Diarrhea with dehydration, hyponatremia, electrolyte abnormalities and hypokalemia as an adverse effect of immunotherapy being received for his pituitary adenoma. The patient is currently under telemetry monitoring due to hypokalemia. The patient has no other electrolyte abnormalities aside from hypocalcemia, hypokalemia. He has been given IV fluids, potassium supplementation t.i.d. Ionized calcium has been supplemented. On chronic Desmopressin and Decadron for secondary adrenal insufficiency. 2. Recurrent falls due to severe dehydration, hyponatremia and hypokalemia. Assisted ambulation only, fall precautions, ARU screen. 3. Secondary hypothyroidism on Synthroid. Secondary adrenal insufficiency, chronic. 4. Hypertension, uncontrolled recently on home medications. 5. Chronic pain on Lyrica. DISPOSITION: Supportive care. [facility]
[2021-03-01] MEDS: MAGNESIUM OXIDE 400MG TAB (MAG-OX) PO SCH (17:40)
[2021-03-01] MEDS: POTASSIUM CHLORIDE 10 MEQ SR TABLET PO SCH ×2 (17:40→18:58)
[2021-03-01] MEDS: LOMOTIL 2.5MG/0.025MG TABLET PO SCH ×2 (18:58→20:58)
[2021-03-01] MEDS: KCL 40MEQ in NS 1000ML 1,000 ML IV SCH (18:59)
[2021-03-01 20:30] LABS: POTASSIUM SERUM 3.6 MEQ/L (3.5-5.1)
[2021-03-01] MEDS ORDERED: ALPRAZolam 0.5 MG TAB PO PRN (20:30)
[2021-03-01] MEDS: busPIRone 10 MG TAB PO SCH (20:58)
[2021-03-01] MEDS: clonazePAM 1 MG TAB PO SCH (20:59)
[2021-03-01] MEDS: PREGABALIN 100 MG CAP (LYRICA) PO SCH (20:59)
[2021-03-01] MEDS: DESMOPRESSIN ACETATE 0.1 MG TAB PO SCH (21:00)
[2021-03-01] MEDS ORDERED: ASPIRIN 81MG ENTERIC TABLET PO SCH (21:00)
[2021-03-01] MEDS ORDERED: ATORVASTATIN 20 MG TAB PO SCH (21:00)
[2021-03-01] MEDS ORDERED: QUEtiapine FUMARATE 25 MG TAB PO SCH (21:00)
[2021-03-01 22:00] VITALS: BP 129/79
[2021-03-01 22:33] LABS: BLOOD UREA NITROGEN 11 MG/DL (7-18); CARBON DIOXIDE LEVEL 31 MEQ/L (21-32); CHLORIDE LEVEL 103 MEQ/L (98-107); CREATININE FOR GFR 1.07 MG/DL (0.70-1.30); GLOMERULAR FILTRATION RATE > 60.0 (>49); GLUCOSE, FASTING 139 MG/DL (70-100); POTASSIUM SERUM 4.1 MEQ/L (3.5-5.1); SODIUM LEVEL 140 MEQ/L (136-145)
[2021-03-02] MEDS: KCL 40MEQ in NS 1000ML 1,000 ML IV SCH ×2 (04:45→13:52)
[2021-03-02] MEDS ORDERED: CALCIUM GLUCONATE 1,000 MG in D5W MINI-BAG PLUS 100 ML IV ONE (05:05)
[2021-03-02] MEDS ORDERED: MAGN400C2 PO (05:08)
[2021-03-02] MEDS ORDERED: POTA20TA6 PO (05:08)
[2021-03-02 05:51] LABS: HEMATOCRIT 46.4 % (42.0-52.0); HEMOGLOBIN 15.2 g/dl (13.5-17.5); MEAN CORPUSCULAR HEMOGLOBIN 30.1 pg (27.0-33.0); MEAN CORPUSCULAR HGB CONC 32.8 g/dl (32.0-36.5); MEAN CORPUSCULAR VOLUME 91.9 fl (80.0-96.0); PLATELET COUNT, AUTOMATED 155 10^3/uL (150-450); RED BLOOD COUNT 5.05 10^6/uL (4.30-6.10)
[2021-03-02 06:00] VITALS: BP 128/76
[2021-03-02] MEDS ORDERED: LIOTHYRONINE 25 MCG TAB PO SCH (06:00)
[2021-03-02] MEDS ORDERED: LEVOTHYROXINE 100MCG TABLET (0.1MG) PO SCH (06:00)
[2021-03-02 06:16] LABS: BLOOD UREA NITROGEN 11 MG/DL (7-18); CALCIUM LEVEL 7.9 MG/DL (8.8-10.2); CARBON DIOXIDE LEVEL 31 MEQ/L (21-32); CHLORIDE LEVEL 108 MEQ/L (98-107); CREATININE FOR GFR 0.88 MG/DL (0.70-1.30); GLOMERULAR FILTRATION RATE > 60.0 (>49); GLUCOSE, FASTING 108 MG/DL (70-100); MAGNESIUM LEVEL 2.3 MG/DL (1.8-2.4); POTASSIUM SERUM 3.9 MEQ/L (3.5-5.1); SODIUM LEVEL 140 MEQ/L (136-145)
[2021-03-02] MEDS ORDERED: QUEtiapine FUMARATE 12.5 MG HALF-TAB PO SCH (09:00)
[2021-03-02] MEDS ORDERED: buPROPion **XL** TABLET 150MG (WELLBUTRIN XL) PO SCH (09:00)
[2021-03-02] MEDS ORDERED: amLODIPine 5 MG TAB PO SCH (09:00)
[2021-03-02] MEDS ORDERED: LOMO2.5T PO (09:07)
[2021-03-02] MEDS ORDERED: QUES4POW PO (09:07)
[2021-03-02] MEDS ORDERED: CHOLESTYRAMINE 4 GM PWD PKT PO ONE (10:00)
[2021-03-02] MEDS ORDERED: LOMOTIL 2.5MG/0.025MG TABLET PO ONE (10:00)
[2021-03-02] MEDS: DESMOPRESSIN ACETATE 0.1 MG TAB PO SCH (10:10)
[2021-03-02 10:11] VITALS: BP 131/90
[2021-03-02] MEDS: PREGABALIN 100 MG CAP (LYRICA) PO SCH (10:11)
[2021-03-02] MEDS: MAGNESIUM OXIDE 400MG TAB (MAG-OX) PO SCH (10:12)
[2021-03-02] MEDS: clonazePAM 1 MG TAB PO SCH (10:12)
[2021-03-02] MEDS: busPIRone 10 MG TAB PO SCH (10:13)
[2021-03-02] MEDS: LOMOTIL 2.5MG/0.025MG TABLET PO SCH ×2 (10:20→13:51)
--- NOTE | 2021-03-02 12:42 | IPN ---
PROGRESS NOTE DATE: 03/02/2021 SUBJECTIVE: Patient was seen and examined at the bedside, chart has been reviewed. Patient had two loose bowel movements yesterday, two again this morning, complains of generalized weakness, unable to ambulate by himself, requires one person assistance with a walker. He denies any nausea or vomiting. He has had no fever or chills at home. No constipation. OBJECTIVE: VITAL SIGNS: Temperature 98, pulse 93, respiratory rate 20, blood pressure is 131/90, 94% on room air. GENERAL APPEARANCE: Awake, alert and oriented to himself. He has episodes of delirium where he does not know where he is, but today he seems to be oriented. He recognizes that he is at [facility] and that his is at the bedside. HEENT: Patient has chronic left eye ptosis and left mydriasis, unchanged from before. Face is asymmetric. No JVD, thyromegaly or cervical lymphadenopathy. LUNGS: Clear to auscultation. No wheezing, rales or rhonchi. HEART: S1 and S2, sinus rhythm. No murmurs, rubs or gallops. ABDOMEN: Obese, soft, nontender and nondistended. Positive bowel sounds. EXTREMITIES: Trace lower extremity edema bilaterally. LABORATORY DATA: White count is 8, hemoglobin is 15, hematocrit is 46, platelet count is 155,000. Sodium is 140, potassium is 3.9, chloride is 108, bicarbonate is 31, BUN is 11, creatinine is 0.88, glucose of 108, magnesium of 2.3. Microbiology: GI panel negative. Respiratory panel negative for Coronavirus. Imaging studies on 03/01/2021: CT of abdomen and pelvis: Gallstones in nondistended gallbladder. No CT findings of acute pathology in the abdomen or pelvis. ASSESSMENT AND PLAN: This is a 70-year-old male with a history of pituitary adenoma status post resection, follows with Neuroendocrinologist at [facility] in [place], [place]. Fire Protection Equipment Technician's phone #, Dr. Bruno, , recently stopped by Dr. Juanjo Gaytan, with negative findings, presented to the Emergency Room with voluminous watery diarrhea since end of January and has been receiving immunotherapy for his pituitary adenoma status post resection, secondary hypothyroidism and adrenal insufficiency on chronic Decadron with chronic kidney disease Stage III and chronic hyponatremia on DDAVP. Patient was found to be hypokalemic and dehydrated and sent to the ER for admission. Active issues are as follows: 1. Immunotherapy induced diarrhea. Patient has improved overnight with replacement of potassium and intravenous fluids, electrolytes are back to normal as well as his sodium level. I am awaiting a phone call back from Dr. Juanjo Gaytan, , the patient's hull outfit supervisor, to see if other medications can be given in order to prevent further diarrheal episodes. According to the , he had been placed on Decadron previously which did not help at all, still with persistent diarrhea, GI panel is negative for any acute infectious process, negative for C. Difficile and negative for Coronavirus. Supportive care for now. Patient has been given intravenous fluids which will continue while he is an inpatient. Still awaiting Physical Therapy evaluation. 2. Debility due to diarrhea. Patient does not appear to be orthostatic and currently with electrolytes being normal no hypernatremia, hyponatremia or acute kidney injury. He is clinically medically stable, however because of the recurrent falls and debility we are arranging for Physical Therapy and Occupational Therapy to evaluate him today. Will need to hold discharge if he is not physically stable for discharge home. 3. Hypokalemia due to diarrhea induced by immunotherapy, currently repleted, now normal. 4. Hyponatremia due to diarrhea and volume loss, currently normal status post normal saline. 5. History of pituitary adenoma status post resection with postop left pupil mydriasis and ptosis which are chronic status post chemotherapy and radiation with secondary hypothyroidism and secondary adrenal insufficiency. Patient is resumed on all his home medications including Decadron. 6. Hypertension, controlled. 7. Disposition: We are awaiting recommendations from Dr. Juanjo Gaytan, evaluation by Physical Therapy and Occupational Therapy and stabilization of his electrolytes. Patient is refusing to drink and therefore has been dehydrated at home.
--- NOTE | 2021-03-02 13:19 | ECGEPIP ---
[facility] - ED Test Date: 2021-03-01 Pat Name: AUGUSTINE PARKER Department: Room: - Gender: Male Order Entry Administrator: ED : 1950 Requested By: Alyssa Wiggins Order Number: [id number] Reading MD: Alyssa Wiggins Measurements Intervals [place] Rate: 98 P: 36 IL: 132 QRS: 31 QRSD: 80 T: 156 QT: 326 QTc: 416 Interpretive Statements Normal sinus rhythm ST & T wave abnormality, consider ischemia similar 02/23/21 Electronically Signed on 03-02-2021 13:19:03 EDT by Alyssa Wiggins
[2021-03-02 14:00] VITALS: BP 132/84
[2021-03-02] MEDS ORDERED: LOMOTIL 2.5MG/0.025MG TABLET PO PRN (15:10)
--- NOTE | 2021-03-02 18:59 | DS.PDOC ---
Discharge Summary General Date of Admission March 01, 2021 at 14:32 Date of Discharge 03/02/21 Discharge Summary DISCHARGE DIAGNOSES: Immunotherapy induced diarrhea/ GI panel negative for C. difficile/ coronavirus Negative Recurrent falls due to to hypovolemia and diarrhea Debility Medical noncompliance with fluid intake, refusing to drink liquids at home Hypokalemia secondary to diarrhea Hyponatremia due to diarrhea and volume loss History of pituitary adenoma status post resection with postop left pupil /mydriasis and ptosis Hypertension DISCHARGE MEDICATIONS: SEE BELOW Discharge instructions: Please call her supervisor print line and veterinarian assistant for further recommendations. Primary care physician appointment within 5 days of discharge. Recheck basic metabolic panel, magnesium, ionized calcium and supplements to be adjusted by her primary care doctor. Avoid dehydration drink 2-3 L of liquids daily. HOSPITAL COURSE: This is a 70-year-old male with a history of pituitary adenoma status post resection, follows with Neuroendocrinologist at [facility] in [place], [place]. Transport Truck Driver's phone #, Dr. Bruno, , recently stopped by Dr. Juanjo Gaytan, with negative findings, presented to the Emergency Room with voluminous watery diarrhea since end of January and has been receiving immunotherapy for his pituitary adenoma status post resection, secondary hypothyroidism and adrenal insufficiency on chronic Decadron with chronic kidney disease Stage III and chronic hyponatremia on DDAVP. Patient was found to be hypokalemic and dehydrated and sent to the ER for admission. Active issues are as follows: 1. Immunotherapy induced diarrhea. Patient has improved overnight with replacement of potassium and intravenous fluids, electrolytes are back to normal as well as his sodium level. I am awaiting a phone call back from Dr. Juanjo Gaytan, , the patient's supervisor print line, to see if other medications can be given in order to prevent further diarrheal episodes. According to the , he had been placed on Decadron previously which did not help at all, still with persistent diarrhea, GI panel is negative for any acute infectious process, negative for C. Difficile and negative for Coronavirus. Supportive care for now. Patient has been given intravenous fluids which will continue while he is an inpatient. Still awaiting Physical Therapy evaluation. 2. Debility due to diarrhea. Patient does not appear to be orthostatic and currently with electrolytes being normal no hypernatremia, hyponatremia or acute kidney injury. He is clinically medically stable, however because of the recurrent falls and debility we are arranging for Physical Therapy and Occupational Therapy to evaluate him today. Will need to hold discharge if he is not physically stable for discharge home. 3. Hypokalemia due to diarrhea induced by immunotherapy, currently repleted, now normal. 4. Hyponatremia due to diarrhea and volume loss, currently normal status post normal saline. 5. History of pituitary adenoma status post resection with postop left pupil mydriasis and ptosis which are chronic status post chemotherapy and radiation with secondary hypothyroidism and secondary adrenal insufficiency. Patient is resumed on all his home medications including Decadron. 6. Hypertension, controlled. 7. Disposition: We are awaiting recommendations from Dr. Juanjo Gaytan, evaluation by Physical Therapy and Occupational Therapy and stabilization of his electrolytes. Patient is refusing to drink and therefore has been dehydrated at home. DISCHARGE PHYSICAL EXAMINATION VITAL SIGNS: Temperature 98, pulse 93, respiratory rate 20, blood pressure is 131/90, 94% on room air. GENERAL APPEARANCE: Awake, alert and oriented to himself. He has episodes of delirium where he does not know where he is, but today he seems to be oriented. He recognizes that he is at [facility] and that his is at the bedside. HEENT: Patient has chronic left eye ptosis and left mydriasis, unchanged from before. Face is asymmetric. No JVD, thyromegaly or cervical lymphadenopathy. LUNGS: Clear to auscultation. No wheezing, rales or rhonchi. HEART: S1 and S2, sinus rhythm. No murmurs, rubs or gallops. ABDOMEN: Obese, soft, nontender and nondistended. Positive bowel sounds. EXTREMITIES: Trace lower extremity edema bilaterally. LABORATORY DATA: White count is 8, hemoglobin is 15, hematocrit is 46, platelet count is 155,000. Sodium is 140, potassium is 3.9, chloride is 108, bicarbonate is 31, BUN is 11, creatinine is 0.88, glucose of 108, magnesium of 2.3. Microbiology: GI panel negative. Respiratory panel negative for Coronavirus. Imaging studies on 03/01/2021: CT of abdomen and pelvis: Gallstones in nondistended gallbladder. No CT findings of acute pathology in the abdomen or pelvis. TIME SPENT ON HOSPITAL DISCHARGE 30 MINUTES Vital Signs/I&Os Vital Signs Date Time Temp Pulse Resp B/P (MAP) Pulse Ox O2 Delivery O2 Flow Rate FiO2 03/02/21 14:00 98.5 95 20 132/84 (100) 96 Room Air I&O- Last 24 Hours up to 6 AM 03/02/21 06:00 Intake Total 2535 ml Output Total 250 ml Balance 2285 ml Laboratory Data Labs 24H Laboratory Tests 2 03/01/21 20:00: Whole Blood Ionized Calcium 4.2L, Magnesium Level 2.0 03/01/21 21:59: Whole Blood Ionized Calcium 4.2L, Anion Gap 6L, Glomerular Filtration Rate > 60.0, Calcium Level 8.0L 03/02/21 05:28: Magnesium Level 2.3, Anion Gap 1L, Glomerular Filtration Rate > 60.0, Calcium Level 7.9L, Nucleated Red Blood Cells % (auto) 0.3H CBC/BMP Laboratory Tests 03/01/21 20:00 03/01/21 21:59 03/02/21 05:28 Microbiology Microbiology 03/01/21 Gastrointestinal Tract Panel (PCR) - Final, Complete 03/01/21 Respiratory Virus Panel (PCR) (MARTELL) - Final, Complete Discharge Medications Scheduled Amlodipine Besylate (Amlodipine Besylate) 5 Mg Tablet, 5 MG PO DAILY, (Reported) Aspirin (Aspirin EC) 81 Mg Tablet.dr, 81 MG PO QHS, (Reported) Atorvastatin Calcium (Lipitor) 20 Mg Tab, 20 MG PO QHS, (Reported) Bupropion Hcl (Bupropion Xl) 150 Mg Tab.er.24h, 150 MG PO DAILY, (Reported) Buspirone HCl (Buspirone HCl) 30 Mg Tab, 30 MG PO BID, (Reported) Cholecalciferol (Vitamin D3) (Vitamin D3) 125 Mcg Tablet, 125 MCG PO DAILY, (Reported) Cholestyramine (with Sugar) (Questran Packet) 4 Gm Powd.pack, 4 GM PO ACHS Clonazepam (Klonopin) 1 Mg Tab, 1 MG PO BID, (Reported) Desmopressin Acetate (Desmopressin Acetate) 0.1 Mg Tablet, 0.1 MG PO BID, (Reported) Desvenlafaxine Succinate (Desvenlafaxine Succinate ER) 100 Mg Tab.er.24h, 100 MG PO DAILY, (Reported) Dexamethasone (Dexamethasone) 1 Mg Tablet, 3 MG PO DAILY, (Reported) Diphenoxylate HCl/Atropine (Lomotil 2.5-0.025 mg Tablet) 1 Each Tablet, 1 TAB PO ACHS Levothyroxine Sodium (Levothyroxine Sodium) 100 Mcg Tablet, 100 MCG PO QAM, (Reported) Liothyronine Sodium (Liothyronine Sodium) 25 Mcg Tab, 25 MCG PO DAILY, (Reported) Magnesium Oxide (Magnesium Oxide) 400 Mg Tablet, 400 MG PO DAILY, (Reported) Magnesium Oxide (Magnesium) 400 Mg Capsule, 1 CAP PO DAILY for constipation Omeprazole (Omeprazole) 40 Mg Capsule.dr, 40 MG PO BID, (Reported) Potassium Chloride (Potassium Chloride) 20 Meq Tab.er.prt, 1 TAB PO BID Pregabalin (Lyrica) 100 Mg Capsule, 300 MG PO BID, (Reported) Quetiapine Fumarate (Quetiapine Fumarate) 25 Mg Tablet, 12.5 MG PO BID, (Reported) am and afternoon Quetiapine Fumarate (Quetiapine Fumarate) 25 Mg Tablet, 25 MG PO QHS, (Reported) Testosterone (Testosterone) 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
== END 2021-03-02 15:55 | disposition home or self-care (01) | DRG 392 ==
LOC: M ED 10:30 → EDBD 10:30 → M ED INP 14:32 → ENRESERV 14:47 → M MSPAV 17:16
PROVIDERS: ADMIT General Practice; ATTEND General Practice
DX: R19.7 Diarrhea, unspecified (principal); E87.1 Hypo-osmolality and hyponatremia; E87.6 Hypokalemia; I12.9 Hypertensive chronic kidney disease with stage 1 through stage 4 chronic kidney disease, or unspecified chronic kidney disease; Z91.19 Patient's noncompliance with other medical treatment and regimen; R29.6 Repeated falls; E86.1 Hypovolemia; Z79.82 Long term (current) use of aspirin; Z79.899 Other long term (current) drug therapy; Z88.0 Allergy status to penicillin; Z92.3 Personal history of irradiation; Z92.21 Personal history of antineoplastic chemotherapy; N18.30 Chronic kidney disease, stage 3 unspecified; H02.402 Unspecified ptosis of left eyelid; H57.04 Mydriasis

== ENCOUNTER → 2021-03-03 | Outpatient (REF) | payer OTHER, MEDICARE ==
[~2021-03-03] MED LIST changes: +DESV100T3 PO; +DIPH2.5T14 PO; +LOMO2.5T PO; +MAGN400C2 PO; +POTA1TAB14 PO; +POTA20TA6 PO; +PREG100CA PO; +QUES4POW PO; +VITA500038 PO
[2021-03-03 12:15] LABS: BLOOD UREA NITROGEN 9 MG/DL (7-18); CALCIUM LEVEL 7.9 MG/DL (8.8-10.2); CARBON DIOXIDE LEVEL 27 MEQ/L (21-32); CHLORIDE LEVEL 104 MEQ/L (98-107); CREATININE FOR GFR 0.85 MG/DL (0.70-1.30); GLOMERULAR FILTRATION RATE > 60.0 (>49); GLUCOSE, FASTING 150 MG/DL (70-100); MAGNESIUM LEVEL 1.7 MG/DL (1.8-2.4); POTASSIUM SERUM 3.5 MEQ/L (3.5-5.1); SODIUM LEVEL 138 MEQ/L (136-145)
== END ==
LOC: M LAB REF 11:23
PROVIDERS: ATTEND General Practice
DX: E87.6 Hypokalemia (principal); R19.7 Diarrhea, unspecified; T45.1X5A Adverse effect of antineoplastic and immunosuppressive drugs, initial encounter

== ENCOUNTER → 2021-03-04 | Outpatient (REF) | payer OTHER, MEDICARE ==
[2021-03-04 10:44] LABS: BLOOD UREA NITROGEN 9 MG/DL (7-18); CALCIUM LEVEL 8.4 MG/DL (8.8-10.2); CARBON DIOXIDE LEVEL 27 MEQ/L (21-32); CHLORIDE LEVEL 100 MEQ/L (98-107); CREATININE FOR GFR 0.83 MG/DL (0.70-1.30); GLOMERULAR FILTRATION RATE > 60.0 (>49); GLUCOSE, FASTING 120 MG/DL (70-100); MAGNESIUM LEVEL 1.7 MG/DL (1.8-2.4); POTASSIUM SERUM 4.3 MEQ/L (3.5-5.1); SODIUM LEVEL 135 MEQ/L (136-145)
== END ==
LOC: M SHH 09:33
PROVIDERS: ATTEND General Practice
DX: E87.6 Hypokalemia (principal); R19.7 Diarrhea, unspecified; T45.1X5A Adverse effect of antineoplastic and immunosuppressive drugs, initial encounter

== ENCOUNTER 2021-03-05 12:56 | Inpatient (IN) | payer OTHER, MEDICARE ==
[~2021-03-05] VITALS: Ht 162.6 cm; Wt 83.0 kg
[~2021-03-05 12:56] MED LIST changes: -POTA1TAB14 PO
[2021-03-05] MEDS ORDERED: NS 1,000 ML IV ONE (13:45)
[2021-03-05 13:51] LABS: HEMATOCRIT 49.8 % (42.0-52.0); HEMOGLOBIN 16.9 g/dl (13.5-17.5); MEAN CORPUSCULAR HEMOGLOBIN 30.3 pg (27.0-33.0); MEAN CORPUSCULAR HGB CONC 33.9 g/dl (32.0-36.5); MEAN CORPUSCULAR VOLUME 89.2 fl (80.0-96.0); PLATELET COUNT, AUTOMATED 190 10^3/uL (150-450); RED BLOOD COUNT 5.58 10^6/uL (4.30-6.10); WHITE BLOOD COUNT 10.3 10^3/uL (4.0-10.0)
[2021-03-05] MEDS ORDERED: POTA1TAB14 PO (13:59)
[2021-03-05 14:12] LABS: ANISOCYTOSIS 1+; ATYPICAL LYMPH 1 % (0-5); EOSINOPHILS 1 % (0-3); LYMPHOCYTES 9 % (16-44); MONOCYTES 8 % (0-5); NEUTROPHILS 78 % (28-66); PLATELET ESTIMATE NORMAL (NORMAL)
[2021-03-05 14:59] LABS: ALBUMIN 2.8 GM/DL (3.2-5.2); ALT/SGPT 49 U/L (12-78); BILIRUBIN,DIRECT 0.4 MG/DL (0.0-0.2); BLOOD UREA NITROGEN 16 MG/DL (7-18); CALCIUM LEVEL 8.3 MG/DL (8.8-10.2); CARBON DIOXIDE LEVEL 26 MEQ/L (21-32); CHLORIDE LEVEL 94 MEQ/L (98-107); CK-MB VALUE MASS < 1.0 NG/ML (<3.6); CPK CREATINE PHOSPHOKINASE 33 U/L (39-308); CREATININE FOR GFR 1.11 MG/DL (0.70-1.30); GLOMERULAR FILTRATION RATE > 60.0 (>49); GLUCOSE, FASTING 153 MG/DL (70-100); MB/CK RELATIVE INDEX 3.03 (< OR =4); POTASSIUM SERUM 4.5 MEQ/L (3.5-5.1); SODIUM LEVEL 126 MEQ/L (136-145); THYROID STIMULATING HORMONE < 0.005 uIU/ML (0.358-3.740); TOTAL PROTEIN 5.4 GM/DL (6.4-8.2); TROPONIN I < 0.02 NG/ML (< 0.10)
[2021-03-05] MEDS ORDERED: ACETAMINOPHEN TAB 650MG DOSE (2X325MG) PO PRN (16:30)
[2021-03-05] MEDS ORDERED: MAALOX 30 ML SUSP *UDC PO PRN (16:30)
[2021-03-05] MEDS ORDERED: LOMOTIL 2.5MG/0.025MG TABLET PO PRN (16:35)
[2021-03-05] MEDS: NS 1,000 ML IV SCH ×2 (16:40→23:55)
[2021-03-05 16:43] LABS: FREE T4 0.75 NG/DL (0.76-1.46); URIC ACID 4.8 MG/DL (3.5-7.2)
[2021-03-05 17:38] VITALS: BP 130/79
--- NOTE | 2021-03-05 17:54 | HPEPDOC ---
[facility] Medical History & Physical Date of Admission March 05, 2021 Date of Service: March 05, 2021 Primary Care Physician: CHERRI GARCIA M.D. Attending Physician: IDA DOS SANTOS MD History and Physical CHIEF COMPLAINT: diarrhea, dehydration HISTORY OF PRESENT ILLNESS: Ross Summers is a 70 year old male who presented to the ED today, brought in by his , for continued diarrhea, dehydration, and change in mental status. Patient's is present at bedside and provides much of the history. She states the patient received his second doses of immunotherapy on 02/13/2021 for his pituitary adenoma. His first dose was in October 2020 and he subsequently developed diarrhea which persisted until late January. His therapy was held for that time; it is typically given every three weeks. After being restarted on immunotherapy on February 13 he subsequent developed watery diarrhea in the following days. He was initially treated as [facility] and had work up to rule out other causes, including colonoscopy which is reported as being negative. He was admitted to [facility] on 03/01/21 for dehydration due to diarrhea with associated hyponatremia. He improved at that time with IV fluid hydration and electrolyte repletion and returned home on 03/02/2021. Since then, patient's reports continued diarrhea. She states he has good oral intake but everything seems to go through him quickly. She states he does complain of abdominal cramping at times. Patient reports daily abdominal cramping which comes and goes. No blood in stool. No fevers or chills. Patient feels fatigued currently and reports feeling weak when trying to walk recently. Patient's states she does assist him to use the bathroom. PAST MEDICAL HISTORY: Pituitary adenoma, status post resection, chemotherapy, radiation, currently undergoing immunotherapy with nivolumab and ipilimumab s/p 2 doses Follows with [facility] with Dr. 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 Chronic kidney disease, stage 3. 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 PAST SURGICAL HISTORY: Resection of the pituitary adenoma SOCIAL HISTORY: Never smoker. No alcohol use. No illicit substance use. Lives at home with and daughter. FAMILY HISTORY: Father with bone cancer. Mother alive age 90's, rheumatic heart disease ALLERGIES: Please see below. REVIEW OF SYSTEMS: CONSTITUTIONAL: Endorses fatigue. Denies fevers, chills, night sweats, unexpected change in weight. HEENT: Denies change in vision, change in hearing. CARDIOVASCULAR: Denies chest pain, palpitations, shortness of breath, lightheadedness. RESPIRATORY: Denies cough, wheezing. GASTROINTESTINAL: Per HPI GENITOURINARY: Denies dysuria, urinary frequency, urinary urgency. SKIN: Denies new rash, lesions. MUSCULOSKELETAL: Denies new joint pain or muscle aches. NEUROLOGICAL: Denies headache, dizziness, weakness. PSYCHIATRIC: Denies change in mood. HOME MEDICATIONS: Please see below. PHYSICAL EXAMINATION: VITAL SIGNS: See below GENERAL: Appears tired, laying comfortably in bed, in no acute distress HEENT: Normocephalic, atraumatic, sclera anicteric, moist mucous membranes NECK: Supple, trachea midline, no lymphadenopathy CARDIOVASCULAR: Regular rate and rhythm, normal S1 and S2. No murmurs, rubs, or gallops RESPIRATORY: Clear to auscultation bilaterally with equal air entry bilaterally. No wheezing, rhonchi, or rales. ABDOMEN: Mildly tender to deep palpation throughout without guarding, rigidity, or rebound tenderness. Soft, nondistended, bowel sounds present. EXTREMITIES: No cyanosis or edema. Pulses 2+/4 in bilateral upper and lower extremities SKIN: [place], warm, dry NEUROLOGIC: Alert and oriented to person, place, and situation. States it is February 2020. Left eye mydriasis. Left eye ptosis. Otherwise no additional focal deficits appreciated. PSYCHIATRIC: Mood and affect appropriate LABORATORY DATA: See below. IMAGING: None MICROBIOLOGY: Please see below. ASSESSMENT: 70 year old male with PMHx of pituitary adenoma, secondary hypothyroidism, secondary adrenal insufficiency, recurrent diarrhea due to immunotherapy with recurrent hyponatremia, CKD stage 3, who presented to the ED due to lethargy and dehydration due to persistent diarrhea found to have low s odium level, admitted for management of hypovolumic hyponatremia and diarrhea PLAN: # Hypovolumic hyponatremia - s/p 1 L NS in the ED. Continue IV NS 150ml/hr - check urine electrolytes and osm - monitor BMP q6h. 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 can add cholestyramine if not improved. # Pituitary adenoma with secondary hypothyroidism and adrenal insufficiency - Follows with [facility] with Dr. Enriquez, distributed generation project manager, phone number [phone] - hold home desmopressin in the setting of hyponatremia - continue home levothyroxine and liothyronine - continue home decadron, he is being titrated down on this and switched back to his usual hydrocortisone, which can be continued after discharge # GERD - continue home omeprazole # HTN - continue home amlodipine # HLD - continue home statin and aspirin # Mood disorder - continue home bupropion, buspirone, clonazepam, seroquel, quetiapine, desvenlafaxine DVT prophylaxis: sc heparin Disposition: admitted inpatient to PCU pending clinical improvement Vital Signs Vital Signs Date Time Temp Pulse Resp B/P (MAP) Pulse Ox O2 Delivery O2 Flow Rate FiO2 03/05/21 16:31 92 96 03/05/21 16:30 134/78 (96) 03/05/21 15:46 18 Room Air 03/05/21 13:02 97.6 Laboratory Data Labs 24H Laboratory Tests 2 03/05/21 13:35: Immature Granulocyte % (Auto) , Neutrophils (%) (Auto) , Nucleated Red Blood Cells % (auto) 0.0, Neutrophils 78H, Band Neutrophils 3, Lymphocytes (Manual) 9L, Monocytes (Manual) 8H, Eosinophils (Manual) 1, Atypical Lymphocytes 1, Anisocytosis 1+, Platelet Estimate NORMAL, Anion Gap 6L, Glomerular Filtration Rate > 60.0, Uric Acid 4.8, Calcium Level 8.3L, Magnesium Level 2.0, Total Bilirubin 1.0, Direct Bilirubin 0.4H, Aspartate Amino Transf (AST/SGOT) 20, Alanine Aminotransferase (ALT/SGPT) 49, Alkaline Phosphatase 88, Total Creatine Kinase 33L, Creatine Kinase MB < 1.0, Creatine Kinase MB Relative Index 3.03, Troponin I < 0.02, Total Protein 5.4L, Albumin 2.8L, Albumin/Globulin Ratio 1.1, Thyroid Stimulating Hormone (TSH) < 0.005L, Free Thyroxine 0.75L 03/05/21 13:40: Bedside Glucose (Misc Panel) 160H CBC/BMP Laboratory Tests 03/05/21 13:35 Microbiology Microbiology 03/05/21 Gastrointestinal Tract Panel (PCR), Received Pending 03/05/21 Respiratory Virus Panel (PCR) (MARTELL) - Final, Complete Home Medications Scheduled Amlodipine Besylate (Amlodipine Besylate) 5 Mg Tablet, 5 MG PO DAILY Aspirin (Aspirin EC) 81 Mg Tablet.dr, 81 MG PO QHS Atorvastatin Calcium (Lipitor) 20 Mg Tab, 20 MG PO QHS Bupropion Hcl (Bupropion Xl) 150 Mg Tab.er.24h, 150 MG PO DAILY Buspirone HCl (Buspirone HCl) 30 Mg Tab, 30 MG PO BID Cholecalciferol (Vitamin D3) (Vitamin D3) 125 Mcg Tablet, 125 MCG PO DAILY Clonazepam (Klonopin) 1 Mg Tab, 1 MG PO BID Desmopressin Acetate (Desmopressin Acetate) 0.1 Mg Tablet, 0.1 MG PO BID Desvenlafaxine Succinate (Desvenlafaxine Succinate ER) 100 Mg Tab.er.24h, 100 MG PO DAILY Dexamethasone (Dexamethasone) 1 Mg Tablet, 3 MG PO DAILY Levothyroxine Sodium (Levothyroxine Sodium) 100 Mcg Tablet, 100 MCG PO QAM Liothyronine Sodium (Liothyronine Sodium) 25 Mcg Tab, 25 MCG PO DAILY Magnesium Oxide (Magnesium Oxide) 400 Mg Tablet, 400 MG PO DAILY Omeprazole (Omeprazole) 40 Mg Capsule.dr, 40 MG PO BID Potassium Chloride (Potassium Chloride) 20 Meq Tablet.er, 20 MEQ PO BID Pregabalin (Lyrica) 100 Mg Capsule, 300 MG PO BID Quetiapine Fumarate (Quetiapine Fumarate) 25 Mg Tablet, 12.5 MG PO BID am and afternoon Quetiapine Fumarate (Quetiapine Fumarate) 25 Mg Tablet, 25 MG PO QHS Testosterone (Testosterone) 75 Gm Gel.medical clerical assistant, 4 PUMP TOP DAILY Scheduled PRN Acetaminophen (Acetaminophen) 500 Mg Tablet, 500 MG PO Q6H PRN for PAIN Diphenoxylate HCl/Atropine (Diphenoxylate-Atrop 2.5-0.025) 1 Each Tablet, 1 TAB PO QID PRN for DIARRHEA Allergies Coded Allergies: Penicillins (Verified Allergy, Intermediate, rash, 07/16/19) amoxicillin (Verified Allergy, Intermediate, rash, 07/16/19) GME ATTESTATION GME ATTESTATION My faculty preceptor for this patient encounter was physically present during the encounter and was fully available. All aspects of the patient interview, examination, medical decision making process, and medical care plan development were reviewed and approved by the faculty preceptor. The faculty preceptor is aware and concurs with the plan as stated in the body of this note and will attest to such by his/her cosignature. ATTENDING NOTE I, Ida Dos Santos, have independently examined this patient and performed my own physical exam, as well as reviewed the documentation and edited where necessary. I have discussed in detail with the resident / student the findings and plan of treatment as documented by the resident / student and edited their note. I agree with their findings and treatment plan and have edited their documentation. I will continue to follow the patient during this hospital stay. SCOUT BARNHART D.O. March 05, 2021 17:54 IDA DOS SANTOS MD March 06, 2021 15:26
[2021-03-05] MEDS: METAMUCIL (PSYLLIUM) PACKET PO SCH (18:25)
[2021-03-05 20:00] VITALS: BP 149/96
[2021-03-05 20:01] LABS: BLOOD UREA NITROGEN 15 MG/DL (7-18); CALCIUM LEVEL 7.7 MG/DL (8.8-10.2); CARBON DIOXIDE LEVEL 25 MEQ/L (21-32); CHLORIDE LEVEL 99 MEQ/L (98-107); CREATININE FOR GFR 1.03 MG/DL (0.70-1.30); GLOMERULAR FILTRATION RATE > 60.0 (>49); GLUCOSE, FASTING 150 MG/DL (70-100); MAGNESIUM LEVEL 2.2 MG/DL (1.8-2.4); PHOSPHORUS LEVEL 3.9 MG/DL (2.5-4.9); POTASSIUM SERUM 4.7 MEQ/L (3.5-5.1); SODIUM LEVEL 132 MEQ/L (136-145)
[2021-03-05] MEDS: DICYCLOMINE 10 MG CAP PO SCH (21:00)
[2021-03-05] MEDS: clonazePAM 1 MG TAB PO SCH (21:21)
[2021-03-05] MEDS: HEPARIN SOD (PORCINE) 5000UNITS/ML 1ML VIAL/SYRINGE SC SCH (21:22)
[2021-03-05] MEDS: ATORVASTATIN 20 MG TAB PO SCH (21:22)
[2021-03-05] MEDS: ASPIRIN 81MG ENTERIC TABLET PO SCH (21:22)
[2021-03-05] MEDS: PREGABALIN 100 MG CAP (LYRICA) PO SCH (21:22)
[2021-03-05] MEDS: busPIRone 10 MG TAB PO SCH (21:22)
[2021-03-05] MEDS: QUEtiapine FUMARATE 25 MG TAB PO SCH (21:22)
[2021-03-05] MEDS: OMEPRAZOLE 20 MG CAP PO SCH (21:22)
[2021-03-06] VITALS (7 sets, daily range): BP systolic 134–152; BP diastolic 78–98
[2021-03-06 01:08] LABS: BLOOD UREA NITROGEN 13 MG/DL (7-18); CALCIUM LEVEL 7.1 MG/DL (8.8-10.2); CARBON DIOXIDE LEVEL 25 MEQ/L (21-32); CHLORIDE LEVEL 100 MEQ/L (98-107); GLOMERULAR FILTRATION RATE > 60.0 (>49); GLUCOSE, FASTING 151 MG/DL (70-100); MAGNESIUM LEVEL 1.9 MG/DL (1.8-2.4); PHOSPHORUS LEVEL 3.6 MG/DL (2.5-4.9); POTASSIUM SERUM 4.1 MEQ/L (3.5-5.1); SODIUM LEVEL 131 MEQ/L (136-145)
[2021-03-06] MEDS ORDERED: IBUPROFEN 600MG TAB PO PRN (01:15)
[2021-03-06] MEDS: HEPARIN SOD (PORCINE) 5000UNITS/ML 1ML VIAL/SYRINGE SC SCH ×3 (05:13→22:00)
[2021-03-06] MEDS ORDERED: LEVOTHYROXINE 100MCG TABLET (0.1MG) PO SCH (06:00)
[2021-03-06] MEDS ORDERED: CALCIUM CARBONATE 500 MG CHEW U/D PO ONE (06:40)
[2021-03-06] MEDS: NS 1,000 ML IV SCH (07:30)
[2021-03-06] MEDS ORDERED: LIOTHYRONINE 25 MCG TAB PO SCH (09:00)
[2021-03-06] MEDS ORDERED: amLODIPine 5 MG TAB PO SCH (09:00)
[2021-03-06] MEDS ORDERED: DESVENLAFAXINE ER 50 MG TABLET (PRISTIQ) PO SCH (09:00)
[2021-03-06] MEDS ORDERED: buPROPion **XL** TABLET 150MG (WELLBUTRIN XL) PO SCH (09:00)
[2021-03-06 09:25] LABS: HEMATOCRIT 45.3 % (42.0-52.0); HEMOGLOBIN 15.2 g/dl (13.5-17.5); MEAN CORPUSCULAR HEMOGLOBIN 30.2 pg (27.0-33.0); MEAN CORPUSCULAR HGB CONC 33.6 g/dl (32.0-36.5); MEAN CORPUSCULAR VOLUME 90.1 fl (80.0-96.0); PLATELET COUNT, AUTOMATED 178 10^3/uL (150-450); RED BLOOD COUNT 5.03 10^6/uL (4.30-6.10); WHITE BLOOD COUNT 7.6 10^3/uL (4.0-10.0)
[2021-03-06] MEDS: METAMUCIL (PSYLLIUM) PACKET PO SCH (09:32)
[2021-03-06] MEDS: QUEtiapine FUMARATE 12.5 MG HALF-TAB PO SCH ×2 (09:33→13:16)
[2021-03-06] MEDS: clonazePAM 1 MG TAB PO SCH ×2 (09:34→20:40)
[2021-03-06] MEDS: PREGABALIN 100 MG CAP (LYRICA) PO SCH ×2 (09:34→20:39)
[2021-03-06] MEDS: OMEPRAZOLE 20 MG CAP PO SCH ×2 (09:34→20:39)
[2021-03-06] MEDS: DICYCLOMINE 10 MG CAP PO SCH ×3 (09:34→20:39)
[2021-03-06] MEDS: busPIRone 10 MG TAB PO SCH ×2 (09:34→20:39)
[2021-03-06 09:48] LABS: ATYPICAL LYMPH 5 % (0-5); BLOOD UREA NITROGEN 10 MG/DL (7-18); CALCIUM LEVEL 7.9 MG/DL (8.8-10.2); CARBON DIOXIDE LEVEL 24 MEQ/L (21-32); CHLORIDE LEVEL 103 MEQ/L (98-107); CREATININE FOR GFR 0.88 MG/DL (0.70-1.30); GLOMERULAR FILTRATION RATE > 60.0 (>49); GLUCOSE, FASTING 119 MG/DL (70-100); LYMPHOCYTES 14 % (16-44); MAGNESIUM LEVEL 2.1 MG/DL (1.8-2.4); NEUTROPHILS 78 % (28-66); PHOSPHORUS LEVEL 3.3 MG/DL (2.5-4.9); SODIUM LEVEL 135 MEQ/L (136-145)
[2021-03-06 09:49] LABS: PLATELET ESTIMATE NORMAL (NORMAL)
[2021-03-06 10:27] LABS: PTH INTACT 68.9 PG/ML (18.5-88.0)
[2021-03-06] MEDS ORDERED: SLF 3 ML SYR IV PRN (11:00)
[2021-03-06] MEDS: SLF 3 ML SYR IV SCH ×2 (13:17→20:40)
[2021-03-06 14:12] LABS: BLOOD UREA NITROGEN 10 MG/DL (7-18); CALCIUM LEVEL 8.1 MG/DL (8.8-10.2); CARBON DIOXIDE LEVEL 25 MEQ/L (21-32); CHLORIDE LEVEL 104 MEQ/L (98-107); CREATININE FOR GFR 0.98 MG/DL (0.70-1.30); GLOMERULAR FILTRATION RATE > 60.0 (>49); GLUCOSE, FASTING 130 MG/DL (70-100); MAGNESIUM LEVEL 2.1 MG/DL (1.8-2.4); PHOSPHORUS LEVEL 3.3 MG/DL (2.5-4.9); POTASSIUM SERUM 4.2 MEQ/L (3.5-5.1); SODIUM LEVEL 136 MEQ/L (136-145)
--- NOTE | 2021-03-06 15:05 | IPNPDOC ---
Text Note Date of Service The patient was seen on 03/06/21. NOTE SUBJECTIVE: Patient is seen and examined this morning at bedside. He states he has had some diarrhea overnight. He did eat some of his breakfast this morning. Continues to have intermittent abdominal cramping. OBJECTIVE: VITAL SIGNS: See below GENERAL: Appears tired, laying comfortably in bed, in no acute distress HEENT: Normocephalic, atraumatic, sclera anicteric, moist mucous membranes NECK: Supple, trachea midline, no lymphadenopathy CARDIOVASCULAR: Regular rate and rhythm, normal S1 and S2. No murmurs, rubs, or gallops RESPIRATORY: Clear to auscultation bilaterally with equal air entry bilaterally. No wheezing, rhonchi, or rales. ABDOMEN: Mildly tender to deep palpation throughout without guarding, rigidity, or rebound tenderness. Soft, nondistended, bowel sounds present. EXTREMITIES: No cyanosis or edema. Pulses 2+/4 in bilateral upper and lower extremities SKIN: [place], warm, dry NEUROLOGIC: Alert and oriented x4 to person, place, time, and situation. Left eye mydriasis. Left eye ptosis. Otherwise no additional focal deficits appreciated. PSYCHIATRIC: Mood and affect appropriate ASSESSMENT/PLAN: 70 year old male with PMHx of pituitary adenoma, secondary hypothyroidism, secondary adrenal insufficiency, recurrent diarrhea due to immunotherapy with recurrent hyponatremia, CKD stage 3, who presented to the ED due to lethargy and dehydration due to persistent diarrhea found to have low sodium level, admitted for management of hypovolumic hyponatremia and diarrhea # Hypovolumic hyponatremia - s/p 1 L NS in the ED. IV NS 150ml/hr overnight. D/C IV fluids this AM. - check urine electrolytes and osm - monitor BMP q6h. 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 can add cholestyramine if not improved. - Plan to transfer to to [facility] for neuro-production specialist # Pituitary adenoma with secondary hypothyroidism and adrenal insufficiency - Follows with [facility] with Dr. Knight, environmental sampling technician, phone number [phone] - hold home desmopressin in the setting of hyponatremia - continue home levothyroxine and liothyronine - continue home decadron, he is being titrated down by his outpatient providers on this and switched back to his usual hydrocortisone. This can be continued after discharge # GERD - continue home omeprazole # HTN - continue home amlodipine # HLD - continue home statin and aspirin # Mood disorder - continue home bupropion, buspirone, clonazepam, seroquel, quetiapine, desvenlafaxine DVT prophylaxis: sc heparin Disposition: admitted inpatient to PCU pending clinical improvement VS,Fishbone, I+O VS, Fishbone, I+O Laboratory Tests 03/05/21 19:17 03/06/21 00:31 03/06/21 08:45 03/06/21 13:23 Vital Signs Date Time Temp Pulse Resp B/P (MAP) Pulse Ox O2 Delivery O2 Flow Rate FiO2 03/06/21 12:00 96.5 95 18 141/80 (100) 97 Room Air I&O- Last 24 Hours up to 6 AM 03/06/21 06:00 Intake Total 2025 ml Output Total 0 ml Balance 2025 ml GME ATTESTATION GME ATTESTATION My faculty preceptor for this patient encounter was physically present during the encounter and was fully available. All aspects of the patient interview, examination, medical decision making process, and medical care plan development were reviewed and approved by the faculty preceptor. The faculty preceptor is aware and concurs with the plan as stated in the body of this note and will attest to such by his/her cosignature. ATTENDING NOTE I, Ida Freeman, have independently examined this patient and performed my own physical exam, as well as reviewed the documentation and edited where necessary. I have discussed in detail with the resident / student the findings and plan of treatment as documented by the resident / student and edited their note. I agree with their findings and treatment plan and have edited their documentation. I will continue to follow the patient during this hospital stay. Discussed case with [facility] - Patient has been accepted for transfer for additional evaluation by Neuro- oncology team / Endocrinology - Will continue with supportive care for diarrhea at this time until bed is available for transfer SCOUT BARNHART D.O. March 06, 2021 15:05 IDA FREEMAN MD March 06, 2021 15:16
[2021-03-06] MEDS ORDERED: D5W/0.45% SODIUM CHLORIDE 1,000 ML IV SCH (16:05)
[2021-03-06] MEDS ORDERED: NS 1,000 ML IV SCH (16:15)
--- NOTE | 2021-03-06 16:50 | DS.PDOC ---
Discharge Summary General Date of Admission March 05, 2021 at 16:32 Date of Discharge 03/06/2021 Primary Care Physician: CHERRI GARCIA M.D. Attending Physician: IDA DOS SANTOS MD Discharge Summary PROCEDURES PERFORMED DURING STAY: None. 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 HISTORY OF PRESENT ILLNESS: Ross Summers is a 70 year old male who presented to the ED today, brought in by his , for continued diarrhea, dehydration, and change in mental status. Patient's is present at bedside and provides much of the history. She states the patient received his second doses of immunotherapy on 02/13/2021 for his pituitary adenoma. His first dose was in October 2020 and he subsequently developed diarrhea which persisted until late January. His therapy was held for that time; it is typically given every three weeks. After being restarted on immunotherapy on February 13 he subsequent developed watery diarrhea in the following days. He was initially treated as [facility] and had work up to rule out other causes, including colonoscopy which is reported as being negative. He was admitted to [facility] on 03/01/21 for dehydration due to diarrhea with associated hyponatremia. He improved at that time with IV fluid hydration and electrolyte repletion and returned home on 03/02/2021. Since then, patient's reports continued diarrhea. She states he has good oral intake but everything seems to go through him quickly. She states he does complain of abdominal cramping at times. Patient reports daily abdominal cramping which comes and goes. No blood in stool. No fevers or chills. Patient feels fatigued currently and reports feeling weak when trying to walk recently. Patient's states she does assist him to use the bathroom. ED work up revealed low serum sodium level. TSH level was noted to be low, which is chronic due to the patient's pituitary adenoma treatment history. HOSPITAL COURSE: The patient was admitted to the hospital for management of dehydration with hypovolumic hyponatremia. The patient received 1 L NS bolus in the ED and was continued on IV fluids with NS at 150 ml/hr. His sodium corrected by 8 meq over the first 18 hours and the IV fluids were held. The patient was restarted on IV fluids with NS after the first 24 hours in order to continue with fluid hydration. At this point, the hyponatremia had been corrected to normal range. The patient noted improvement of his fatigue. He continued to have persistent wa sandra diarrhea. GI panel on admission was negative. COVID-19 test on admission was negative. The case was discussed with the patient's neuro-oncology team at [facility], lead by Dr. Enriquez. Their team recommended transfer to [facility] for further care by the neuro-oncology service. Patient was stable for transport and transfer of care was arranged to [facility]. DISCHARGE MEDICATIONS: Please see below. ALLERGIES: Please see below. PHYSICAL EXAMINATION ON DISCHARGE: VITAL SIGNS: Please see below. GENERAL: Appears tired, laying comfortably in bed, in no acute distress HEENT: Normocephalic, atraumatic, sclera anicteric, dry mucous membranes NECK: Supple, trachea midline, no lymphadenopathy CARDIOVASCULAR: Regular rate and rhythm, normal S1 and S2. No murmurs, rubs, or gallops RESPIRATORY: Clear to auscultation bilaterally with equal air entry bilaterally. No wheezing, rhonchi, or rales. ABDOMEN: Mildly tender to deep palpation throughout without guarding, rigidity, or rebound tenderness. Soft, nondistended, bowel sounds present. EXTREMITIES: No cyanosis or edema. Pulses 2+/4 in bilateral upper and lower extremities SKIN: [place], warm, dry NEUROLOGIC: Alert and oriented to person, place, and situation. States it is February 2020. Left eye mydriasis. Left eye ptosis. Otherwise no additional focal deficits appreciated. PSYCHIATRIC: Mood and affect appropriate LABORATORY DATA: Please see below. IMAGING: None PROGNOSIS: Poor ACTIVITY: As tolerated. DIET: Low residue fiber DISCHARGE PLAN/DISPOSITION: Transfer to [facility] for neuro-oncology service. DISCHARGE CONDITION: Stable. TIME SPENT ON DISCHARGE: Greater than 35 minutes. Vital Signs/I&Os Vital Signs Date Time Temp Pulse Resp B/P (MAP) Pulse Ox O2 Delivery O2 Flow Rate FiO2 03/06/21 12:00 96.5 95 18 141/80 (100) 97 Room Air I&O- Last 24 Hours up to 6 AM 03/06/21 06:00 Intake Total 2025 ml Output Total 0 ml Balance 2025 ml Laboratory Data Labs 24H Laboratory Tests 2 03/05/21 19:17: Anion Gap 8, Glomerular Filtration Rate > 60.0, Calcium Level 7.7L, Phosphorus Level 3.9, Magnesium Level 2.2 03/06/21 00:31: Anion Gap 6L, Glomerular Filtration Rate > 60.0, Calcium Level 7.1L, Phosphorus Level 3.6, Magnesium Level 1.9 03/06/21 08:45: Anion Gap 8, Glomerular Filtration Rate > 60.0, Calcium Level 7.9L, Phosphorus Level 3.3, Magnesium Level 2.1, Immature Granulocyte % (Auto) , Neutrophils (%) (Auto) , Nucleated Red Blood Cells % (auto) 0.0, Neutrophils 78H, Band Neutrophils 3, Lymphocytes (Manual) 14L, Atypical Lymphocytes 5, Red Blood Cell Morphology NORMAL, Platelet Estimate NORMAL, Parathyroid Hormone (Intact) 68.9 03/06/21 13:23: Anion Gap 7L, Glomerular Filtration Rate > 60.0, Calcium Level 8.1L, Phosphorus Level 3.3, Magnesium Level 2.1 CBC/BMP Laboratory Tests 03/05/21 19:17 03/06/21 00:31 03/06/21 08:45 03/06/21 13:23 Microbiology Microbiology 03/05/21 Gastrointestinal Tract Panel (PCR) - Final, Complete 03/05/21 Respiratory Virus Panel (PCR) (MARTELL) - Final, Complete Discharge Medications Scheduled Amlodipine Besylate (Amlodipine Besylate) 5 Mg Tablet, 5 MG PO DAILY, (Reported) Aspirin (Aspirin EC) 81 Mg Tablet.dr, 81 MG PO QHS, (Reported) Atorvastatin Calcium (Lipitor) 20 Mg Tab, 20 MG PO QHS, (Reported) Bupropion Hcl (Bupropion Xl) 150 Mg Tab.er.24h, 150 MG PO DAILY, (Reported) Buspirone HCl (Buspirone HCl) 30 Mg Tab, 30 MG PO BID, (Reported) Cholecalciferol (Vitamin D3) (Vitamin D3) 125 Mcg Tablet, 125 MCG PO DAILY, (Reported) Clonazepam (Klonopin) 1 Mg Tab, 1 MG PO BID, (Reported) Desvenlafaxine Succinate (Desvenlafaxine Succinate ER) 100 Mg Tab.er.24h, 100 MG PO DAILY, (Reported) Dexamethasone (Dexamethasone) 1 Mg Tablet, 3 MG PO DAILY, (Reported) Levothyroxine Sodium (Levothyroxine Sodium) 100 Mcg Tablet, 100 MCG PO QAM, (Reported) Liothyronine Sodium (Liothyronine Sodium) 25 Mcg Tab, 25 MCG PO DAILY, (Reported) Magnesium Oxide (Magnesium Oxide) 400 Mg Tablet, 400 MG PO DAILY, (Reported) Omeprazole (Omeprazole) 40 Mg Capsule.dr, 40 MG PO BID, (Reported) Potassium Chloride (Potassium Chloride) 20 Meq Tablet.er, 20 MEQ PO BID, (Reported) Pregabalin (Lyrica) 100 Mg Capsule, 300 MG PO BID, (Reported) Quetiapine Fumarate (Quetiapine Fumarate) 25 Mg Tablet, 12.5 MG PO BID, (Reported) am and afternoon Quetiapine Fumarate (Quetiapine Fumarate) 25 Mg Tablet, 25 MG PO QHS, (Reported) Testosterone (Testosterone) 75 Gm Gel.projection printer, 4 PUMP TOP DAILY, (Reported) Scheduled PRN Acetaminophen (Acetaminophen) 500 Mg Tablet, 500 MG PO Q6H PRN for PAIN, (Re ported) Diphenoxylate HCl/Atropine (Diphenoxylate-Atrop 2.5-0.025) 1 Each Tablet, 1 TAB PO QID PRN for DIARRHEA, (Reported) Allergies Coded Allergies: Penicillins (Verified Allergy, Intermediate, rash, 07/16/19) amoxicillin (Verified Allergy, Intermediate, rash, 07/16/19) GME ATTESTATION GME ATTESTATION My faculty preceptor for this patient encounter was physically present during the encounter and was fully available. All aspects of the patient interview, examination, medical decision making process, and medical care plan development were reviewed and approved by the faculty preceptor. The faculty preceptor is aware and concurs with the plan as stated in the body of this note and will attest to such by his/her cosignature. ATTENDING NOTE I, Ida Dos Santos, have independently examined this patient and performed my own physical exam, as well as reviewed the documentation and edited where necessary. I have discussed in detail with the resident / student the findings and plan of treatment as documented by the resident / student and edited their note. I agree with their findings and treatment plan and have edited their documentation. I will continue to follow the patient during this hospital stay. Time spent on discharge 35 minutes SCOUT BARNHART D.O. March 06, 2021 16:50 IDA DOS SANTOS MD March 06, 2021 16:57
[2021-03-06 19:58] LABS: BLOOD UREA NITROGEN 11 MG/DL (7-18); CALCIUM LEVEL 8.4 MG/DL (8.8-10.2); CARBON DIOXIDE LEVEL 23 MEQ/L (21-32); CHLORIDE LEVEL 107 MEQ/L (98-107); CREATININE FOR GFR 1.14 MG/DL (0.70-1.30); GLOMERULAR FILTRATION RATE > 60.0 (>49); GLUCOSE, FASTING 161 MG/DL (70-100); MAGNESIUM LEVEL 2.3 MG/DL (1.8-2.4); PHOSPHORUS LEVEL 3.9 MG/DL (2.5-4.9); POTASSIUM SERUM 4.8 MEQ/L (3.5-5.1); SODIUM LEVEL 136 MEQ/L (136-145)
--- NOTE | 2021-03-06 20:20 | ECGEPIP ---
[facility] - ED Test Date: 2021-03-05 Pat Name: AUGUSTINE PARKER Department: Room: - Gender: Male Order Dispatcher Chief: LALITA : [id number] Requested By: Jose Juan Zaragoza Order Number: [id number] Reading MD: Alyssa Wiggins Measurements Intervals Beggs Rate: 113 P: 16 RI: 126 QRS: 10 QRSD: 80 T: 87 QT: 296 QTc: 406 Interpretive Statements Sinus tachycardia Anterior infarct , age undetermined increased rate 03/01/21 Electronically Signed on 03-06-2021 20:20:01 EDT by Alyssa Wiggins
[2021-03-06] MEDS: ASPIRIN 81MG ENTERIC TABLET PO SCH (20:39)
[2021-03-06] MEDS: ATORVASTATIN 20 MG TAB PO SCH (20:40)
[2021-03-06] MEDS: QUEtiapine FUMARATE 25 MG TAB PO SCH (20:40)
== END 2021-03-06 23:24 | disposition short-term general hospital (02) | DRG 641 ==
LOC: M ED 12:56 → M ED INP 16:32 → ENRESERV 17:02 → M PCU 17:38
PROVIDERS: ADMIT Internal Medicine; ATTEND Internal Medicine
DX: E87.1 Hypo-osmolality and hyponatremia (principal); E86.0 Dehydration; K21.9 Gastro-esophageal reflux disease without esophagitis; I12.9 Hypertensive chronic kidney disease with stage 1 through stage 4 chronic kidney disease, or unspecified chronic kidney disease; E03.9 Hypothyroidism, unspecified; F39 Unspecified mood [affective] disorder; K52.9 Noninfective gastroenteritis and colitis, unspecified; Z79.82 Long term (current) use of aspirin; Z79.899 Other long term (current) drug therapy; Z88.0 Allergy status to penicillin; Z92.3 Personal history of irradiation; Z92.21 Personal history of antineoplastic chemotherapy; D35.2 Benign neoplasm of pituitary gland; N18.30 Chronic kidney disease, stage 3 unspecified; H02.402 Unspecified ptosis of left eyelid; H57.04 Mydriasis

== ENCOUNTER → 2021-03-20 | Outpatient (REF) | payer MEDICARE, OTHER ==
[~2021-03-20] MED LIST changes: +BACT800T5 PO; +CALC500T31 PO; +POTA1TAB14 PO; +PRED20TA PO
[2021-03-20 15:54] LABS: BLOOD UREA NITROGEN 11 MG/DL (7-18); CALCIUM LEVEL 8.6 MG/DL (8.8-10.2); CARBON DIOXIDE LEVEL 30 MEQ/L (21-32); CHLORIDE LEVEL 99 MEQ/L (98-107); CREATININE FOR GFR 0.81 MG/DL (0.70-1.30); GLOMERULAR FILTRATION RATE > 60.0 (>49); GLUCOSE, FASTING 70 MG/DL (70-100); MAGNESIUM LEVEL 2.1 MG/DL (1.8-2.4); POTASSIUM SERUM 2.8 MEQ/L (3.5-5.1); SODIUM LEVEL 141 MEQ/L (136-145)
== END ==
LOC: M SHH 14:35
DX: D35.2 Benign neoplasm of pituitary gland (principal)

== ENCOUNTER 2021-03-23 00:12 | Emergency (ER) | payer MEDICARE, OTHER ==
[~2021-03-23] VITALS: Ht 162.6 cm; Wt 79.5 kg
[~2021-03-23 00:12] MED LIST changes: -BACT800T5 PO; -CALC500T31 PO; -PRED20TA PO
[2021-03-23] MEDS ORDERED: BACT800T5 PO (00:33)
[2021-03-23] MEDS ORDERED: DESM0.1T2 PO (00:33)
[2021-03-23] MEDS ORDERED: CALC500T31 PO (00:33)
[2021-03-23] MEDS ORDERED: PRED20TA PO (00:33)
[2021-03-23] MEDS ORDERED: METOCLOPRAMIDE INJ 10MG/2ML VIAL (J2765 PER 1) IV ONE (02:30)
[2021-03-23] MEDS ORDERED: diphenhydrAMINE 50MG/ML VIAL (J1200) IV ONE (02:30)
[2021-03-23] MEDS ORDERED: KETOROLAC 30 MG/ML 1ML VIAL IV ONE (02:30)
[2021-03-23 04:15] VITALS: BP 123/75
== END 2021-03-23 04:33 | disposition home or self-care (01) ==
LOC: M ED 00:12
DX: R51.9 Headache, unspecified (principal); E87.6 Hypokalemia; R19.7 Diarrhea, unspecified
CPT/HCPCS: 80048; 83735; 96374; 96375; 99284; J1200; J1885; J2765

== ENCOUNTER → 2021-03-23 | Outpatient (REF) | payer MEDICARE, OTHER ==
[2021-03-23 14:59] LABS: BLOOD UREA NITROGEN 13 MG/DL (7-18); CALCIUM LEVEL 7.6 MG/DL (8.8-10.2); CARBON DIOXIDE LEVEL 27 MEQ/L (21-32); CHLORIDE LEVEL 103 MEQ/L (98-107); CREATININE FOR GFR 0.55 MG/DL (0.70-1.30); GLOMERULAR FILTRATION RATE > 60.0 (>49); GLUCOSE, FASTING 138 MG/DL (70-100); POTASSIUM SERUM 3.7 MEQ/L (3.5-5.1); SODIUM LEVEL 137 MEQ/L (136-145)
== END ==
LOC: M SHH 13:46
PROVIDERS: ATTEND General Practice
DX: E87.6 Hypokalemia (principal); R19.7 Diarrhea, unspecified

== ENCOUNTER → 2021-03-26 | Outpatient (REF) | payer MEDICARE, OTHER ==
[~2021-03-26] MED LIST changes: +BACT800T5 PO; +CALC500T31 PO; +PRED20TA PO
[2021-03-26 12:59] LABS: BLOOD UREA NITROGEN 16 MG/DL (7-18); CALCIUM LEVEL 7.4 MG/DL (8.8-10.2); CARBON DIOXIDE LEVEL 27 MEQ/L (21-32); CHLORIDE LEVEL 101 MEQ/L (98-107); CREATININE FOR GFR 0.77 MG/DL (0.70-1.30); GLOMERULAR FILTRATION RATE > 60.0 (>49); GLUCOSE, FASTING 230 MG/DL (70-100); POTASSIUM SERUM 3.9 MEQ/L (3.5-5.1); SODIUM LEVEL 136 MEQ/L (136-145)
== END ==
LOC: M SHH 11:50
PROVIDERS: ATTEND Nurse Practitioner
DX: D35.2 Benign neoplasm of pituitary gland (principal)

== ENCOUNTER → 2021-03-30 | Outpatient (REF) | payer MEDICARE, OTHER ==
[2021-03-30 14:24] LABS: BLOOD UREA NITROGEN 14 MG/DL (7-18); CALCIUM LEVEL 7.8 MG/DL (8.8-10.2); CARBON DIOXIDE LEVEL 28 MEQ/L (21-32); CHLORIDE LEVEL 102 MEQ/L (98-107); CREATININE FOR GFR 0.58 MG/DL (0.70-1.30); GLOMERULAR FILTRATION RATE > 60.0 (>49); GLUCOSE, FASTING 145 MG/DL (70-100); POTASSIUM SERUM 3.8 MEQ/L (3.5-5.1); SODIUM LEVEL 138 MEQ/L (136-145)
== END ==
LOC: M SHH 13:26 → M LAB REF 13:26
PROVIDERS: ATTEND Nurse Practitioner
DX: D35.2 Benign neoplasm of pituitary gland (principal)

== ENCOUNTER → 2021-04-06 | Outpatient (REF) | payer MEDICARE, OTHER ==
[~2021-04-06] MED LIST changes: -DOXY100C37 PO; +DOXY1CAP62 PO
== END ==
LOC: M SHH 16:09
PROVIDERS: ATTEND Nurse Practitioner
DX: D35.2 Benign neoplasm of pituitary gland (principal); Z53.9 Procedure and treatment not carried out, unspecified reason

== ENCOUNTER → 2021-04-09 | Outpatient (REF) | payer MEDICARE, OTHER ==
[2021-04-09 14:36] LABS: BLOOD UREA NITROGEN 16 MG/DL (7-18); CARBON DIOXIDE LEVEL 27 MEQ/L (21-32); CHLORIDE LEVEL 101 MEQ/L (98-107); CREATININE FOR GFR 0.73 MG/DL (0.70-1.30); GLOMERULAR FILTRATION RATE > 60.0 (>49); GLUCOSE, FASTING 151 MG/DL (70-100); MAGNESIUM LEVEL 2.1 MG/DL (1.8-2.4); POTASSIUM SERUM 4.7 MEQ/L (3.5-5.1); SODIUM LEVEL 135 MEQ/L (136-145)
== END ==
LOC: M SHH 13:22
PROVIDERS: ATTEND Nurse Practitioner
DX: D35.2 Benign neoplasm of pituitary gland (principal)

== ENCOUNTER → 2021-04-13 | Outpatient (REF) | payer MEDICARE, OTHER ==
[2021-04-13 16:43] LABS: BLOOD UREA NITROGEN 16 MG/DL (7-18); CARBON DIOXIDE LEVEL 25 MEQ/L (21-32); CHLORIDE LEVEL 102 MEQ/L (98-107); CREATININE FOR GFR 0.67 MG/DL (0.70-1.30); GLOMERULAR FILTRATION RATE > 60.0 (>49); GLUCOSE, FASTING 209 MG/DL (70-100); POTASSIUM SERUM 4.5 MEQ/L (3.5-5.1); SODIUM LEVEL 136 MEQ/L (136-145)
[2021-04-13 16:54] LABS: TOTAL 25(OH) VITAMIN D 25.6 NG/ML (30.0-100.0)
== END ==
LOC: M SHH 16:01
PROVIDERS: ATTEND Internal Medicine Endocrinology, Diabetes & Metabolism
DX: D49.7 Neoplasm of unspecified behavior of endocrine glands and other parts of nervous system (principal); D35.2 Benign neoplasm of pituitary gland; Z79.899 Other long term (current) drug therapy

== ENCOUNTER → 2021-04-13 | Outpatient (REF) | payer MEDICARE, OTHER ==
[2021-04-13 16:44] LABS: BLOOD UREA NITROGEN 16 MG/DL (7-18); CALCIUM LEVEL 7.9 MG/DL (8.8-10.2); CARBON DIOXIDE LEVEL 26 MEQ/L (21-32); CHLORIDE LEVEL 102 MEQ/L (98-107); CREATININE FOR GFR 0.66 MG/DL (0.70-1.30); GLOMERULAR FILTRATION RATE > 60.0 (>49); GLUCOSE, FASTING 208 MG/DL (70-100); POTASSIUM SERUM 4.5 MEQ/L (3.5-5.1); SODIUM LEVEL 135 MEQ/L (136-145)
== END ==
LOC: M SHH 16:03
PROVIDERS: ATTEND Nurse Practitioner
DX: D35.2 Benign neoplasm of pituitary gland (principal)

== ENCOUNTER → 2021-04-16 | Outpatient (REF) | payer MEDICARE, OTHER ==
[2021-04-16 15:38] LABS: BLOOD UREA NITROGEN 13 MG/DL (7-18); CALCIUM LEVEL 8.1 MG/DL (8.8-10.2); CARBON DIOXIDE LEVEL 26 MEQ/L (21-32); CHLORIDE LEVEL 102 MEQ/L (98-107); GLOMERULAR FILTRATION RATE > 60.0 (>49); GLUCOSE, FASTING 174 MG/DL (70-100); MAGNESIUM LEVEL 2.3 MG/DL (1.8-2.4); POTASSIUM SERUM 3.6 MEQ/L (3.5-5.1); SODIUM LEVEL 138 MEQ/L (136-145)
== END ==
LOC: M SHH 14:39
PROVIDERS: ATTEND Nurse Practitioner
DX: D35.2 Benign neoplasm of pituitary gland (principal)

== ENCOUNTER → 2021-04-21 | Outpatient (REF) | payer MEDICARE, OTHER ==
[2021-04-21 15:18] LABS: BLOOD UREA NITROGEN 15 MG/DL (7-18); CALCIUM LEVEL 8.1 MG/DL (8.8-10.2); CARBON DIOXIDE LEVEL 25 MEQ/L (21-32); CHLORIDE LEVEL 99 MEQ/L (98-107); CREATININE FOR GFR 0.89 MG/DL (0.70-1.30); GLOMERULAR FILTRATION RATE > 60.0 (>49); GLUCOSE, FASTING 184 MG/DL (70-100); MAGNESIUM LEVEL 2.2 MG/DL (1.8-2.4); POTASSIUM SERUM 4.8 MEQ/L (3.5-5.1); SODIUM LEVEL 133 MEQ/L (136-145)
== END ==
LOC: M SHH 14:31
PROVIDERS: ATTEND Specialist
DX: D35.2 Benign neoplasm of pituitary gland (principal)

== ENCOUNTER → 2021-04-24 | Outpatient (REF) | payer MEDICARE, OTHER ==
[2021-04-24 13:34] LABS: BLOOD UREA NITROGEN 17 MG/DL (7-18); CALCIUM LEVEL 8.3 MG/DL (8.8-10.2); CARBON DIOXIDE LEVEL 25 MEQ/L (21-32); CHLORIDE LEVEL 107 MEQ/L (98-107); CREATININE FOR GFR 0.88 MG/DL (0.70-1.30); GLOMERULAR FILTRATION RATE > 60.0 (>49); GLUCOSE, FASTING 172 MG/DL (70-100); POTASSIUM SERUM 3.8 MEQ/L (3.5-5.1); SODIUM LEVEL 142 MEQ/L (136-145)
== END ==
LOC: M SHH 12:34
PROVIDERS: ATTEND Specialist
DX: D35.2 Benign neoplasm of pituitary gland (principal)

== ENCOUNTER → 2021-04-27 | Outpatient (REF) | payer MEDICARE, OTHER ==
[2021-04-27 17:50] LABS: BLOOD UREA NITROGEN 17 MG/DL (7-18); CALCIUM LEVEL 8.7 MG/DL (8.8-10.2); CARBON DIOXIDE LEVEL 24 MEQ/L (21-32); CHLORIDE LEVEL 104 MEQ/L (98-107); CREATININE FOR GFR 0.95 MG/DL (0.70-1.30); GLOMERULAR FILTRATION RATE > 60.0 (>49); GLUCOSE, FASTING 182 MG/DL (70-100); POTASSIUM SERUM 4.8 MEQ/L (3.5-5.1); SODIUM LEVEL 137 MEQ/L (136-145)
== END ==
LOC: M LAB REF 16:54
PROVIDERS: ATTEND Specialist
DX: D35.2 Benign neoplasm of pituitary gland (principal)

== ENCOUNTER → 2021-04-30 | Outpatient (REF) | payer OTHER, MEDICARE ==
[~2021-04-30] MED LIST changes: +QUET1TAB17 PO; -QUET25TA3 PO; -TEST1.622 TOP; +TEST75GE TOP
[2021-04-30 14:02] LABS: BLOOD UREA NITROGEN 15 MG/DL (7-18); CALCIUM LEVEL 8.4 MG/DL (8.8-10.2); CARBON DIOXIDE LEVEL 25 MEQ/L (21-32); CHLORIDE LEVEL 105 MEQ/L (98-107); CREATININE FOR GFR 0.97 MG/DL (0.70-1.30); GLOMERULAR FILTRATION RATE > 60.0 (>49); GLUCOSE, FASTING 241 MG/DL (70-100); MAGNESIUM LEVEL 2.1 MG/DL (1.8-2.4); POTASSIUM SERUM 4.9 MEQ/L (3.5-5.1); SODIUM LEVEL 139 MEQ/L (136-145)
== END ==
LOC: M SHH 13:00
PROVIDERS: ATTEND Nurse Practitioner
DX: D35.2 Benign neoplasm of pituitary gland (principal)

== ENCOUNTER → 2021-05-19 | Outpatient (CLI) | payer OTHER, MEDICARE ==
[2021-05-19 17:56] LABS: BASO # 0.1 10^3/uL (0.0-0.2); BASO % 1.2 % (0.0-1.0); HEMATOCRIT 48.8 % (42.0-52.0); HEMOGLOBIN 15.7 g/dl (13.5-17.5); LYMPH # 1.5 10^3/uL (1.5-5.0); LYMPH % 13.2 % (24.0-44.0); MEAN CORPUSCULAR HEMOGLOBIN 29.8 pg (27.0-33.0); MEAN CORPUSCULAR HGB CONC 32.2 g/dl (32.0-36.5); MEAN CORPUSCULAR VOLUME 92.8 fl (80.0-96.0); MONO # 0.5 10^3/uL (0.0-0.8); NEUTROPHILS # 8.9 10^3/uL (1.5-8.5); NEUTROPHILS % 76.6 % (36.0-66.0); PLATELET COUNT, AUTOMATED 239 10^3/uL (150-450); RED BLOOD COUNT 5.26 10^6/uL (4.30-6.10); WHITE BLOOD COUNT 11.6 10^3/uL (4.0-10.0)
[2021-05-19 18:16] LABS: ALBUMIN 3.3 GM/DL (3.2-5.2); ALT/SGPT 52 U/L (12-78); BILIRUBIN,TOTAL 0.3 MG/DL (0.2-1.0); BLOOD UREA NITROGEN 20 MG/DL (7-18); CALCIUM LEVEL 8.8 MG/DL (8.8-10.2); CARBON DIOXIDE LEVEL 24 MEQ/L (21-32); CHLORIDE LEVEL 104 MEQ/L (98-107); CREATININE FOR GFR 1.25 MG/DL (0.70-1.30); FREE T4 0.73 NG/DL (0.76-1.46); GLOMERULAR FILTRATION RATE > 60.0 (>42); GLUCOSE, FASTING 257 MG/DL (70-100); MAGNESIUM LEVEL 2.2 MG/DL (1.8-2.4); POTASSIUM SERUM 4.6 MEQ/L (3.5-5.1); SODIUM LEVEL 138 MEQ/L (136-145); TOTAL PROTEIN 6.4 GM/DL (6.4-8.2)
== END ==
LOC: M PLALAB 14:19
PROVIDERS: ATTEND Family Medicine
DX: E78.1 Pure hyperglyceridemia (principal); E87.6 Hypokalemia; E03.9 Hypothyroidism, unspecified; Z86.011 Personal history of benign neoplasm of the brain

== ENCOUNTER → 2021-06-02 | Outpatient (REF) | payer MEDICARE, OTHER ==
[~2021-06-02] MED LIST changes: +TEST1.622 TOP; -TEST75GE TOP
[2021-06-02 17:17] LABS: BASO # 0.1 10^3/uL (0.0-0.2); EOS % 0.1 % (0.0-3.0); HEMATOCRIT 47.7 % (42.0-52.0); HEMOGLOBIN 15.3 g/dl (13.5-17.5); LYMPH # 1.9 10^3/uL (1.5-5.0); LYMPH % 16.8 % (24.0-44.0); MEAN CORPUSCULAR HEMOGLOBIN 29.8 pg (27.0-33.0); MEAN CORPUSCULAR HGB CONC 32.1 g/dl (32.0-36.5); MONO # 0.7 10^3/uL (0.0-0.8); MONO % 5.7 % (2.0-8.0); NEUTROPHILS # 8.2 10^3/uL (1.5-8.5); NEUTROPHILS % 71.9 % (36.0-66.0); PLATELET COUNT, AUTOMATED 234 10^3/uL (150-450); RED BLOOD COUNT 5.13 10^6/uL (4.30-6.10); WHITE BLOOD COUNT 11.4 10^3/uL (4.0-10.0)
[2021-06-02 17:33] LABS: ALBUMIN 3.2 GM/DL (3.2-5.2); ALT/SGPT 55 U/L (12-78); BILIRUBIN,TOTAL 0.4 MG/DL (0.2-1.0); BLOOD UREA NITROGEN 19 MG/DL (7-18); CALCIUM LEVEL 8.3 MG/DL (8.8-10.2); CARBON DIOXIDE LEVEL 27 MEQ/L (21-32); CHLORIDE LEVEL 106 MEQ/L (98-107); CREATININE FOR GFR 1.07 MG/DL (0.70-1.30); FREE T4 0.79 NG/DL (0.76-1.46); GLOMERULAR FILTRATION RATE > 60.0 (>42); GLUCOSE, FASTING 149 MG/DL (70-100); POTASSIUM SERUM 4.4 MEQ/L (3.5-5.1); SODIUM LEVEL 139 MEQ/L (136-145)
== END ==
LOC: M LABDRWAD 16:30
PROVIDERS: ATTEND Family Medicine
DX: E87.1 Hypo-osmolality and hyponatremia (principal); E87.6 Hypokalemia; Z86.011 Personal history of benign neoplasm of the brain; E03.9 Hypothyroidism, unspecified

== ENCOUNTER → 2021-06-16 | Outpatient (REF) | payer OTHER ==
[2021-06-16 19:47] LABS: BASO # 0.1 10^3/uL (0.0-0.2); BASO % 1.3 % (0.0-1.0); EOS % 0.1 % (0.0-3.0); HEMATOCRIT 50.3 % (42.0-52.0); HEMOGLOBIN 15.9 g/dl (13.5-17.5); LYMPH # 1.9 10^3/uL (1.5-5.0); LYMPH % 17.5 % (24.0-44.0); MEAN CORPUSCULAR HEMOGLOBIN 29.2 pg (27.0-33.0); MEAN CORPUSCULAR HGB CONC 31.6 g/dl (32.0-36.5); MEAN CORPUSCULAR VOLUME 92.5 fl (80.0-96.0); MONO # 0.6 10^3/uL (0.0-0.8); MONO % 5.7 % (2.0-8.0); NEUTROPHILS # 7.6 10^3/uL (1.5-8.5); NEUTROPHILS % 70.6 % (36.0-66.0); PLATELET COUNT, AUTOMATED 280 10^3/uL (150-450); RED BLOOD COUNT 5.44 10^6/uL (4.30-6.10); WHITE BLOOD COUNT 10.8 10^3/uL (4.0-10.0)
[2021-06-16 20:14] LABS: ALBUMIN 3.3 GM/DL (3.2-5.2); ALT/SGPT 59 U/L (12-78); BILIRUBIN,TOTAL 0.4 MG/DL (0.2-1.0); BLOOD UREA NITROGEN 13 MG/DL (7-18); CALCIUM LEVEL 9.5 MG/DL (8.8-10.2); CARBON DIOXIDE LEVEL 27 MEQ/L (21-32); CHLORIDE LEVEL 105 MEQ/L (98-107); CREATININE FOR GFR 1.11 MG/DL (0.70-1.30); FREE T4 0.84 NG/DL (0.76-1.46); GLOMERULAR FILTRATION RATE > 60.0 (>42); GLUCOSE, FASTING 116 MG/DL (70-100); MAGNESIUM LEVEL 2.3 MG/DL (1.8-2.4); SODIUM LEVEL 138 MEQ/L (136-145); TOTAL PROTEIN 6.6 GM/DL (6.4-8.2)
== END ==
LOC: M LAB REF 18:19 → M SFHCADAM 18:19
PROVIDERS: ATTEND Family Medicine
DX: E67.1 Hypercarotenemia (principal); E87.6 Hypokalemia; C7B.8 Other secondary neuroendocrine tumors; E03.9 Hypothyroidism, unspecified

== ENCOUNTER → 2021-06-29 | Outpatient (REF) | payer OTHER ==
[~2021-06-29] MED LIST changes: -TEST1.622 TOP; +TEST75GE TOP
[2021-06-29 17:43] LABS: BLOOD UREA NITROGEN 10 MG/DL (7-18); CALCIUM LEVEL 8.6 MG/DL (8.8-10.2); CARBON DIOXIDE LEVEL 28 MEQ/L (21-32); CHLORIDE LEVEL 108 MEQ/L (98-107); CREATININE FOR GFR 1.06 MG/DL (0.70-1.30); GLOMERULAR FILTRATION RATE > 60.0 (>42); GLUCOSE, FASTING 162 MG/DL (70-100); POTASSIUM SERUM 4.2 MEQ/L (3.5-5.1); SODIUM LEVEL 142 MEQ/L (136-145)
== END ==
LOC: M LABDRWAD 16:50
PROVIDERS: ATTEND Internal Medicine Endocrinology, Diabetes & Metabolism
DX: D49.7 Neoplasm of unspecified behavior of endocrine glands and other parts of nervous system (principal)

== ENCOUNTER → 2021-06-30 | Outpatient (REF) | payer OTHER ==
[2021-06-30 18:49] LABS: APPEARANCE, URINE CLOUDY (CLEAR); BACTERIA, URINE AUTO 2+ (NEGATIVE); BILIRUBIN, URINE AUTO NEGATIVE (NEGATIVE); BLOOD, URINE BLOOD 3+ (NEGATIVE); COLOR, URINE YELLOW (YELLOW); GLUCOSE, URINE (UA) AUTO 3+ mg/dL (NEGATIVE); KETONE, URINE AUTO NEGATIVE (NEGATIVE); LEUKOCYTE ESTERASE, URINE AUTO 3+ (NEGATIVE); MUCUS, URINE SMALL (NEGATIVE); NITRITE, URINE AUTO NEGATIVE (NEGATIVE); PROTEIN, URINE AUTO 1+ mg/dL (NEGATIVE); RBC, URINE AUTO 181 /HPF (0-3); SPECIFIC GRAVITY URINE AUTO 1.013 (1.002-1.035); SQUAMOUS EPITHELIAL CELL UR AU 1 /HPF (0-6); UROBILINOGEN, URINE AUTO 0.2 mg/dL (0.0-2.0); WBC, URINE AUTO TNTC /HPF (0-3)
== END ==
LOC: M LAB REF 17:28
PROVIDERS: ATTEND Physician Assistant Medical
DX: N39.0 Urinary tract infection, site not specified (principal)

== ENCOUNTER → 2021-07-20 | Outpatient (REF) | payer OTHER ==
[2021-07-20 18:31] LABS: BASO # 0.1 10^3/uL (0.0-0.2); BASO % 0.5 % (0.0-1.0); EOS # 0.1 10^3/uL (0.0-0.5); EOS % 0.9 % (0.0-3.0); HEMATOCRIT 47.7 % (42.0-52.0); HEMOGLOBIN 15.1 g/dl (13.5-17.5); MEAN CORPUSCULAR HEMOGLOBIN 28.5 pg (27.0-33.0); MEAN CORPUSCULAR HGB CONC 31.7 g/dl (32.0-36.5); MEAN CORPUSCULAR VOLUME 90.2 fl (80.0-96.0); MONO # 0.6 10^3/uL (0.0-0.8); MONO % 6.3 % (2.0-8.0); NEUTROPHILS # 6.8 10^3/uL (1.5-8.5); NEUTROPHILS % 70.4 % (36.0-66.0); PLATELET COUNT, AUTOMATED 326 10^3/uL (150-450); RED BLOOD COUNT 5.29 10^6/uL (4.30-6.10); WHITE BLOOD COUNT 9.6 10^3/uL (4.0-10.0)
[2021-07-20 19:04] LABS: ALT/SGPT 37 U/L (12-78); BILIRUBIN,TOTAL 0.3 MG/DL (0.2-1.0); BLOOD UREA NITROGEN 14 MG/DL (7-18); CALCIUM LEVEL 8.7 MG/DL (8.8-10.2); CARBON DIOXIDE LEVEL 28 MEQ/L (21-32); CHLORIDE LEVEL 106 MEQ/L (98-107); GLOMERULAR FILTRATION RATE > 60.0 (>42); GLUCOSE, FASTING 144 MG/DL (70-100); SODIUM LEVEL 141 MEQ/L (136-145)
== END ==
LOC: M LABDRWAD 18:05
PROVIDERS: ATTEND Physician Assistant
DX: D35.2 Benign neoplasm of pituitary gland (principal)

== ENCOUNTER → 2021-07-27 | Outpatient (REF) | payer OTHER ==
[2021-07-27 12:58] LABS: BASO # 0.1 10^3/uL (0.0-0.2); BASO % 1.1 % (0.0-1.0); EOS # 0.1 10^3/uL (0.0-0.5); EOS % 1.9 % (0.0-3.0); HEMATOCRIT 47.3 % (42.0-52.0); LYMPH # 1.7 10^3/uL (1.5-5.0); MEAN CORPUSCULAR HEMOGLOBIN 28.5 pg (27.0-33.0); MEAN CORPUSCULAR HGB CONC 31.7 g/dl (32.0-36.5); MEAN CORPUSCULAR VOLUME 89.9 fl (80.0-96.0); MONO # 0.6 10^3/uL (0.0-0.8); MONO % 7.9 % (2.0-8.0); NEUTROPHILS # 4.6 10^3/uL (1.5-8.5); NEUTROPHILS % 64.1 % (36.0-66.0); PLATELET COUNT, AUTOMATED 253 10^3/uL (150-450); RED BLOOD COUNT 5.26 10^6/uL (4.30-6.10); WHITE BLOOD COUNT 7.2 10^3/uL (4.0-10.0)
[2021-07-27 13:28] LABS: ALBUMIN 2.9 GM/DL (3.2-5.2); ALT/SGPT 31 U/L (12-78); BILIRUBIN,TOTAL 0.3 MG/DL (0.2-1.0); BLOOD UREA NITROGEN 13 MG/DL (7-18); CARBON DIOXIDE LEVEL 31 MEQ/L (21-32); CHLORIDE LEVEL 108 MEQ/L (98-107); CREATININE FOR GFR 1.11 MG/DL (0.70-1.30); GLOMERULAR FILTRATION RATE > 60.0 (>42); GLUCOSE, FASTING 126 MG/DL (70-100); SODIUM LEVEL 143 MEQ/L (136-145)
== END ==
LOC: M LABDRWAD 12:21
PROVIDERS: ATTEND Physician Assistant
DX: D35.2 Benign neoplasm of pituitary gland (principal)

== ENCOUNTER 2021-08-02 08:21 | Emergency (ER) | payer OTHER ==
[~2021-08-02] VITALS: Ht 162.6 cm; Wt 86.4 kg
[~2021-08-02 08:21] MED LIST changes: +DOXY-443 PO; -DOXY1CAP62 PO
--- OUTSIDE RECORDS SUMMARY | 2021-08-02 08:29 | CCD | Continuity of Care Document ---
Author Author Ross GARCIA M.D. Organization Unknown Address [id number] [place] [address] Phone [phone] Care Team Providers Care Process Control Manager Name Role Phone Lino Garcia MD AUTM [phone] Wally Newsome DO AUTM [phone] Pam Veronica MD AUTM [phone] Rickey Valdez MD AUTM [phone] [employer] [facility] AUTM [phone] Problems Active Problems Provider Date Pituitary adenoma Lino Garcia M.D. Onset: 04/22/2015 Hyperlipidemia Lino Garcia M.D. 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 1 Potassium Chloride ER 20Meq Tablet s ER take one tablet by mouth three times a day 90tabs Lino Garcia M.D. 03/20/2021 Lyrica 200mg Capsules 1 by mouth twice a day ([place] wants a total of 300mg bid) 60bernardino Garcia M.D. 01/26/2021 Magnesium Oxide 500mg Tablets po bid - OTC Lino Garcia M.D. 11/04/2020 Oxycodone HCL 5mg Capsules 1 twice a day as needed pain 60bernardino Garcia M.D. 09/14/[address] 1 by mouth bid 180bernardino Garcia M.D. 07/27/2019 Seroquel 25mg Tablets 1/2 tab by mouth in the morning, 1/2 tab midday and 1 tabs in the late evening 60veena Garcia M.D. 06/19/2019 Viagra 100mg Tablets as direc konrad 8veena Garcia M.D. 01/02/2018 Ibuprofen 800mg Tablets take one tablet by mouth three times a day-take with food 90veena Garcia M.D. 10/25/2017 Liothyronine Sodium 25mcg Tablets take one tablet by mouth every day with 5-10mcg liothyronine 90veena Garcia M.D. 07/04/2017 Dhea 50mg Capsules take 2 tab s po qd Lino Garcia M.D. 04/22/2015 Vitamin D3 5000Unit Tablets one every day by mouth Lino Garcia M.D. 04/22/2015 Atorvastatin Calcium 20mg Tablets 1 by mouth every day 90veena Garcia M.D. 04/22/2015 Aspirin Adult Low Dose 81mg Tablet s DR 1 by mouth every day Lino Garcia M.D. 04/22/20 15 Bupropion HCL ER (SR) 150mg Tablets ER 12HR 1 by mouth once a day Wally Newsome,DO Clonazepam 1mg Tablets 1 by m outh bid Wally Newsome,DO Desvenlafaxine ER 100mg Tablets ER 24HR 1 by mouth every day 30veena Garcia M.D. 00 Hydrocortisone 10mg Tablets 2 po qam and 1 po qhs Pam Veronica MD Levothyroxine Sodium 100mcg Tablet s 1 by mouth every day Pam Veronica MD Buspirone HCL 15mg Tablets 1 by mouth twice a day Wally Newsome,DO Androgel 20.25mg/1.25GM (1.62%) Ge l 3 pumps q mon, wed, frid, 2 pumps the other days F Pam lindo MD L-Methylfolate 15mg Tablets 1 po qd Wally Newsome,DO Desmopressin Acetate 0.1mg Tablets take one tablet po in the am and one tablet po in the pm Unknown Amlodipine Besylate 5mg Tablets 1 by mouth every day 90tabs Wendi Gupta,DO Lyrica 100mg Capsules take 3 capsule twice a day 180caps Chon Lam MD History Medications Prednisone 20mg Tablets 2 tabs by mouth daily (per [place]) Lino Garcia M.D. 021 - 07/29/2021 Immunizations CPT Code Status Date Vaccine Lot # [id number] Given 07/02/2014 Influenza Virus Vaccine 97930 Given 07/25/2013 Influenza Virus Vaccine 61691 Given 06/28/2013 Adacel- Tetanus Diphtheria P ertussis 22981 Given 08/29/2012 Influenza Virus Vaccine 91197 Given 07/17/2010 Influenza Virus Vaccine 47208 Given 11/18/2008 Pneumovax 23 94167 Given 11/18/1997 Adacel- Tetanus Diphtheria P ertussis 64703 Refused 08/28/2018 Influenza Virus Vaccine, Quadrivalent ([id number]), Derived From Cell [id number] Refused 12/19/2012 Zoster Vaccine Vital Signs Date Vital Result Comment 07/29/2021 3:08pm BP Systolic 128 mmHg BP Diastolic 89 mmHg Heart Rate 72 /min Height 64 inches 5'4" Weight 194.00 lb BMI (Body Mass Index) 33.3 kg/m2 05/04/2021 2:29pm BP Systolic 136 mmHg BP Diastolic 86 mmHg Heart Rate 104 /min Height 64 inches 5'4" Weight 184.00 lb BMI (Body Mass Index) 31.6 kg/m2 Results Test Acquired Date Facility Test Result H/L Range Note CMP 06/16/2021 [facility] [address]ter [address] [place] [address] [phone] Glucose, Fasting 116 mg/dL High 70-100 Blood Urea Nitrogen 13 mg/dL Normal 7-18 Creatinine For GFR 1.11 mg/dL Normal 0.70-1.30 Glomerular Filtration Rate > 60.0 Normal >42 1 Sodium Level 138 mEq/L Normal 136-145 Potassium Serum 5.0 mEq/L Normal 3.5-5.1 Chloride Level 105 mEq/L Normal 98-107 Carbon Dioxide Level 27 mEq/L Normal 21-32 Anion Gap 6 mEq/L Low 8-16 Calcium Level 9.5 mg/dL Normal 8.8-10.2 Ast/Sgot 26 U/L Normal 7-37 Alt/SGPT 59 U/L Normal 12-78 Alkaline Phosphatase 107 U/L Normal 45-117 Bilirubin,Total 0.4 mg/dL Normal 0.2-1.0 Total Protein 6.6 GM/DL Normal 6.4-8.2 Albumin 3.3 GM/DL Normal 3.2-5.2 Albumin/Globulin Ratio 1.0 Normal Laboratory test finding 06/16/2021 [facility] [address] [place] [address] [phone] Magnesium Level 2.3 mg/dL Normal 1.8-2.4 Free T4 0.84 ng/dL Normal 0.76-1.46 CBC W/Auto Differential 06/16/2021 [facility] [address] [place] [address] [phone] White Blood Count 10.8 10 High 4.0-10.0 Red Blood Count 5.44 10 Normal 4.30-6.10 Hemoglobin 15.9 g/dL Normal 13.5-17.5 Hematocrit 50.3 % Normal 42.0-52.0 Mean Corpuscular Volume 92.5 fl Normal 80.0-96.0 Mean Corpuscular Hemoglobin 29.2 pg Normal 27.0-33.0 Mean Corpuscular HGB Conc 31.6 g/dL Low 32.0-36.5 Red Cell Distribution Width 15.7 % High 11.5-14.5 Platelet Count, Automated 280 10 Normal 150-450 Neutrophils % 70.6 % High 36.0-66.0 Lymph % 17.5 % Low 24.0-44.0 [place] % 5.7 % Normal 2.0-8.0 Eos % 0.1 % Normal 0.0-3.0 Baso % 1.3 % High 0.0-1.0 Immature Granulocyte % 4.8 % High 0-3.0 Nucleated Red Blood Cell % 0.0 % Normal 0-0 Neutrophils # 7.6 10 Normal 1.5-8.5 Lymph # 1.9 10 Normal 1.5-5.0 [place] # 0.6 10 Normal 0.0-0.8 Eos # 0.0 10 Normal 0.0-0.5 Baso # 0.1 10 Normal 0.0-0.2 CBC W/Auto Differential 06/02/2021 [place] [address] [phone] White Blood Count 11.4 10 High 4.0-10.0 Red Blood Count 5.13 10 Normal 4.30-6.10 Hemoglobin 15.3 g/dL Normal 13.5-17.5 Hematocrit 47.7 % Normal 42.0-52.0 Mean Corpuscular Volume 93.0 fl Normal 80.0-96.0 Mean Corpuscular Hemoglobin 29.8 pg Normal 27.0-33.0 Mean Corpuscular HGB Conc 32.1 g/dL Normal 32.0-36.5 Red Cell Distribution Width 15.9 % High 11.5-14.5 Platelet Count, Automated 234 10 Normal 150-450 Neutrophils % 71.9 % High 36.0-66.0 Lymph % 16.8 % Low 24.0-44.0 [place] % 5.7 % Normal 2.0-8.0 Eos % 0.1 % Normal 0.0-3.0 Baso % 1.0 % Normal 0.0-1.0 Immature Granulocyte % 4.5 % High 0-3.0 Nucleated Red Blood Cell % 0.2 % High 0-0 Neutrophils # 8.2 10 Normal 1.5-8.5 Lymph # 1.9 10 Normal 1.5-5.0 [place] # 0.7 10 Normal 0.0-0.8 Eos # 0.0 10 Normal 0.0-0.5 Baso # 0.1 10 Normal 0.0-0.2 CMP 06/02/2021 [facility] [address]ter [address] [place] [address] [phone] Glucose, Fasting 149 mg/dL High 70-100 Blood Urea Nitrogen 19 mg/dL High 7-18 Creatinine For GFR 1.07 mg/dL Normal 0.70-1.30 Glomerular Filtration Rate > 60.0 Normal >42 2 Sodium Level 139 mEq/L Normal 136-145 Potassium Serum 4.4 mEq/L Normal 3.5-5.1 Chloride Level 106 mEq/L Normal 98-107 Carbon Dioxide Level 27 mEq/L Normal 21-32 Anion Gap 6 mEq/L Low 8-16 Calcium Level 8.3 mg/dL Low 8.8-10.2 Ast/Sgot 24 U/L Normal 7-37 Alt/SGPT 55 U/L Normal 12-78 Alkaline Phosphatase 79 U/L Normal 45-117 Bilirubin,Total 0.4 mg/dL Normal 0.2-1.0 Total Protein 6.0 GM/DL Low 6.4-8.2 Albumin 3.2 GM/DL Normal 3.2-5.2 Albumin/Globulin Ratio 1.1 Normal Laboratory test finding 06/02/[address] [address] [phone] Magnesium Level 2.0 mg/dL Normal 1.8-2.4 Free T4 0.79 ng/dL Normal 0.76-1.46 CBC With Differential 05/19/[address] [address] [phone] White Blood Count 11.6 10 High 4.0-10.0 Red Blood Count 5.26 10 Normal 4.30-6.10 Hemoglobin 15.7 g/dL Normal 13.5-17.5 Hematocrit 48.8 % Normal 42.0-52.0 Mean Corpuscular Volume 92.8 fl Normal 80.0-96.0 Mean Corpuscular Hemoglobin 29.8 pg Normal 27.0-33.0 Mean Corpuscular HGB Conc 32.2 g/dL Normal 32.0-36.5 Red Cell Distribution Width 15.9 % High 11.5-14.5 Platelet Count, Automated 239 10 Normal 150-450 Neutrophils % 76.6 % High 36.0-66.0 Lymph % 13.2 % Low 24.0-44.0 [place] % 4.0 % Normal 2.0-8.0 Eos % 0.0 % Normal 0.0-3.0 Baso % 1.2 % High 0.0-1.0 Immature Granulocyte % 5.0 % High 0-3.0 Nucleated Red Blood Cell % 0.2 % High 0-0 Neutrophils # 8.9 10 High 1.5-8.5 Lymph # 1.5 10 Normal 1.5-5.0 [place] # 0.5 10 Normal 0.0-0.8 Eos # 0.0 10 Normal 0.0-0.5 Baso # 0.1 10 Normal 0.0-0.2 Comprehensive Metabolic Profil 05/19/[address] [address] [phone] Glucose, Fasting 257 mg/dL High 70-100 Blood Urea Nitrogen 20 mg/dL High 7-18 Creatinine For GFR 1.25 mg/dL Normal 0.70-1.30 Glomerular Filtration Rate > 60.0 Normal >42 3 Sodium Level 138 mEq/L Normal 136-145 Potassium Serum 4.6 mEq/L Normal 3.5-5.1 Chloride Level 104 mEq/L Normal 98-107 Carbon Dioxide Level 24 mEq/L Normal 21-32 Anion Gap 10 mEq/L Normal 8-16 Calcium Level 8.8 mg/dL Normal 8.8-10.2 Ast/Sgot 18 U/L Normal 7-37 Alt/SGPT 52 U/L Normal 12-78 Alkaline Phosphatase 89 U/L Normal 45-117 Bilirubin,Total 0.3 mg/dL Normal 0.2-1.0 Total Protein 6.4 GM/DL Normal 6.4-8.2 Albumin 3.3 GM/DL Normal 3.2-5.2 Albumin/Globulin Ratio 1.1 Normal Laboratory test finding 05/19/[address] [address] [phone] Magnesium Level 2.2 mg/dL Normal 1.8-2.4 Free T4 0.73 ng/dL Low 0.76-1.46 Laboratory test finding 03/05/2021 [facility] [address] [place] [address] [phone] Bedside Glucose 160 mg/dL High 80-115 Laboratory test finding 03/05/2021 [address] [place] [address] [phone] Thyroid Stimulating Hormone < 0.005 uIU/ML Low 0.358-3.740 Uric Acid 4.8 mg/dL Normal 3.5-7.2 Magnesium Level 2.0 mg/dL Normal 1.8-2.4 Free T4 0.75 ng/dL Low 0.76-1.46 Basic Metabolic Profile 03/05/2021 [address] [place] [address] [phone] Glucose, Fasting 153 mg/dL High 70-100 Blood Urea Nitrogen 16 mg/dL Significant change down 7-18 Creatinine For GFR 1.11 mg/dL Normal 0.70-1.30 Glomerular Filtration Rate > 60.0 Normal >49 4 Sodium Level 126 mEq/L 136-145 Potassium Serum 4.5 mEq/L Normal 3.5-5.1 Chloride Level 94 mEq/L Low 98-107 Carbon Dioxide Level 26 mEq/L Normal 21-32 Anion Gap 6 mEq/L Low 8-16 Calcium Level 8.3 mg/dL Low 8.8-10.2 Liver Profile 03/05/2021 [facility] [address] [address] [place] [address] [phone] Ast/Sgot 20 U/L Normal 7-37 Alt/SGPT 49 U/L Normal 12-78 Alkaline Phosphatase 88 U/L Normal 45-117 Bilirubin,Total 1.0 mg/dL Normal 0.2-1.0 Bilirubin,Direct 0.4 mg/dL High 0.0-0.2 Total Protein 5.4 GM/DL Low 6.4-8.2 Albumin 2.8 GM/DL Low 3.2-5.2 Albumin/Globulin Ratio 1.1 Normal Cardiac Marker Panel 03/05/2021 [facility] enter [address] [place] [address] [phone] CPK Creatine Phosphokinase 33 U/L Low 39-30 8 CK-MB Value Mass < 1.0 NG/ML Normal <3.6 MB/CK Relative Index 3.03 Normal < Or =4 5 Troponin I < 0.02 NG/ML Normal < 0.10 6 Laboratory test finding 03/05/[address] [phone] Platelet Estimate NORMAL Normal Normal Differential 03/05/2021 [facility] n[facility] [address] [place] [address] [phone] Neutrophils 78 % High 28-66 Bands 3 % Normal < 11 Lymphocytes 9 % Low 16-44 Monocytes 8 % High 0-5 Eosinophils 1 % Normal 0-3 Atypical Lymph 1 % Normal 0-5 Anisocytosis 1+ Normal CBC With Differential 03/05/[address] [address] [phone] White Blood Count 10.3 10 High 4.0-10.0 Red Blood Count 5.58 10 Normal 4.30-6.10 Hemoglobin 16.9 g/dL Normal 13.5-17.5 Hematocrit 49.8 % Normal 42.0-52.0 Mean Corpuscular Volume 89.2 fl Normal 80.0-96.0 Mean Corpuscular Hemoglobin 30.3 pg Normal 27.0-33.0 Mean Corpuscular HGB Conc 33.9 g/dL Normal 32.0-36.5 Red Cell Distribution Width 16.1 % High 11.5-14.5 Platelet Count, Automated 190 10 Normal 150-450 Nucleated Red Blood Cell % 0.0 % Normal 0-0 Respiratory Panel 03/05/2021 [facility] [address] [address] [place] [address] [phone] Respiratory Panel This respiratory <SEE NOTE> 7 Laboratory test finding 03/04/[address] [address] [phone] Ionized Calcium 4.6 mg/dL Normal 4.5-5.3 Laboratory test finding 03/04/[address] [address] [phone] Magnesium Level 1.7 mg/dL Low 1.8-2.4 Basic Metabolic Profile 03/04/[address] [address] [phone] Glucose, Fasting 120 mg/dL High 70-100 Blood Urea Nitrogen 9 mg/dL Normal 7-18 Creatinine For GFR 0.83 mg/dL Normal 0.70-1.30 Glomerular Filtration Rate > 60.0 Normal >49 8 Sodium Level 135 mEq/L Low 136-145 Potassium Serum 4.3 mEq/L Significant change down 3.5-5.1 Chloride Level 100 mEq/L Normal 98-107 Carbon Dioxide Level 27 mEq/L Normal 21-32 Anion Gap 8 mEq/L Normal 8-16 Calcium Level 8.4 mg/dL Low 8.8-10.2 Respiratory Panel 03/01/2021 [facility] nter [address] [place] [address] [phone] Respiratory Panel This respiratory <SEE NOTE> 9 Basic Metabolic Profile 02/23/[address] [address] [phone] Glucose, Fasting 148 mg/dL High 70-100 Blood Urea Nitrogen 14 mg/dL Normal 7-18 Creatinine For GFR 0.89 mg/dL Normal 0.70-1.30 Glomerular Filtration Rate > 60.0 Normal >49 1 0 Sodium Level 143 mEq/L Normal 136-145 Potassium Serum 3.6 mEq/L Normal 3.5-5.1 Chloride Level 111 mEq/L High 98-107 Carbon Dioxide Level 27 mEq/L Normal 21-32 Anion Gap 5 mEq/L Low 8-16 Calcium Level 7.4 mg/dL Low 8.8-10.2 Laboratory test finding 02/23/[address] [address] [phone] Lactic Acid Sepsis Protocol 2.4 mmol/L Critical high 0 .4-2.0 11 Ua W/ Reflex To Culture 02/23/[address] [address] [phone] Appearance, Urine RFX CLEAR Normal Clear Color, Urine RFX YELLOW Normal Yellow PH,Urine RFX 6.0 units Normal 5.0-9.0 Specific [place] Ur Auto RFX 1.020 Normal 1.002-1.035 Protein, Urine Auto RFX 1+ mg/dL High Negative Glucose, Urine (Ua) Auto RFX 3+ mg/dL High Negative Ketone, Urine Auto RFX NEGATIVE mg/dL Normal Negative Urobilinogen, Urine Auto RFX 0.2 mg/dL Normal 0.0-2.0 Bilirubin, Urine Auto RFX NEGATIVE Normal Negative Nitrite, Urine Auto RFX NEGATIVE Normal Negative Leukocyte Esterase Ur Auto RFX NEGATIVE Normal Negative Blood, Urine Blood RFX 1+ High Negative WBC, Urine Auto RFX 1 /HPF Normal 0-3 RBC, Urine Auto RFX 10 /HPF High 0-3 Bacteria, Urine Auto RFX 1+ High Negative Squam Epithelial Cell Ur Aurfx 0 /HPF Normal 0-6 Mucus, Urine RFX SMALL Normal Negative Hyaline Cast, Urine Auto RFX 0 /LPF Normal 0-1 Laboratory test finding 02/23/[address] [address] [phone] Osmolality Urine 693 MOSM/KG Normal 50-1400 Creatinine,Random Urine 105.0 mg/dL Normal Sodium,Random Urine 111 mEq/L Normal Drug Eval Toxicology ED Only 02/23/[address] [address] [phone] Amphetamines Level Urine NEGATIVE Normal Negativ e Barbiturates Urine NEGATIVE Normal Negative Benzodiazepines Urine NEGATIVE Normal Negative Cannabinoids Urine NEGATIVE Normal Negative Cocaine Metabolite Urine NEGATIVE Normal Negative Methadone Urine NEGATIVE Normal Negative Opiates Urine NEGATIVE Normal Negative Phencyclidine Urine NEGATIVE Normal Negative 12 Blood Culture 02/23/2021 [facility] nter [address] [place] [address] [phone] Blood Culture No growth after <SEE NOTE> 13 Laboratory test finding 02/23/[address] [id number] [phone] Bedside Glucose 216 mg/dL High 80-115 CBC With Differential 02/23/[address] 2199845 [phone] White Blood Count 8.0 10 Normal 4.0-10.0 Red Blood Count 5.06 10 Normal 4.30-6.10 Hemoglobin 15.7 g/dL Normal 13.5-17.5 Hematocrit 47.1 % Normal 42.0-52.0 Mean Corpuscular Volume 93.1 fl Normal 80.0-96.0 Mean Corpuscular Hemoglobin 31.0 pg Normal 27.0-33.0 Mean Corpuscular HGB Conc 33.3 g/dL Normal 32.0-36.5 Red Cell Distribution Width 16.3 % High 11.5-14.5 Platelet Count, Automated 160 10 Normal 150-450 Neutrophils % 74.6 % High 36.0-66.0 Lymph % 14.8 % Low 24.0-44.0 [place] % 4.1 % Normal 2.0-8.0 Eos % 0.0 % Normal 0.0-3.0 Baso % 1.5 % High 0.0-1.0 Immature Granulocyte % 5.0 % High 0-3.0 Nucleated Red Blood Cell % 0.4 % High 0-0 Neutrophils # 6.0 10 Normal 1.5-8.5 Lymph # 1.2 10 Low 1.5-5.0 [place] # 0.3 10 Normal 0.0-0.8 Eos # 0.0 10 Normal 0.0-0.5 Baso # 0.1 10 Normal 0.0-0.2 Laboratory test finding 02/23/2021 [facility] [address] [id number] [phone] Ammonia 26 uMOL/L Normal <32 Lactic Acid Sepsis Protocol 3.9 mmol/L Critical high 0.4-2.0 14 Cardiac Marker Panel 02/23/2021 [facility] enter [address] [place] [address] [phone] CPK Creatine Phosphokinase 22 U/L Low 39-30 8 CK-MB Value Mass 1.2 NG/ML Normal <3.6 MB/CK Relative Index 5.45 High < Or =4 15 Troponin I < 0.02 NG/ML Normal < 0.10 16 Liver Profile 02/23/2021 [facility] [address] [address] [place] [address] [phone] Ast/Sgot 18 U/L Normal 7-37 Alt/SGPT 47 U/L Normal 12-78 Alkaline Phosphatase 89 U/L Normal 45-117 Bilirubin,Total 0.6 mg/dL Normal 0.2-1.0 Bilirubin,Direct 0.2 mg/dL Normal 0.0-0.2 Total Protein 5.5 GM/DL Low 6.4-8.2 Albumin 2.8 GM/DL Low 3.2-5.2 Albumin/Globulin Ratio 1.0 Normal Basic Metabolic Profile 02/23/[address] [address] [phone] Glucose, Fasting 223 mg/dL High 70-100 Blood Urea Nitrogen 16 mg/dL Normal 7-18 Creatinine For GFR 1.00 mg/dL Normal 0.70-1.30 Glomerular Filtration Rate > 60.0 Normal >49 1 7 Sodium Level 140 mEq/L Normal 136-145 Potassium Serum 3.0 mEq/L Low 3.5-5.1 Chloride Level 104 mEq/L Normal 98-107 Carbon Dioxide Level 27 mEq/L Normal 21-32 Anion Gap 9 mEq/L Normal 8-16 Calcium Level 8.5 mg/dL Low 8.8-10.2 Laboratory test finding 02/23/[address] [address] [phone] Osmolality Serum 294 MOSM/KG Normal 280-301 Ethyl Alcohol (Ethanol) < 0.003 % Normal 0.000-0.010 Salicylate Level < 1.7 mg/dL Low 5.0-30.0 Acetaminophen Level 2.7 UG/ML Low 10.0-30.0 Thyroid Stimulating Hormone < 0.005 uIU/ML Low 0.358-3.740 Free T4 0.88 ng/dL Normal 0.76-1.46 Magnesium Level 1.8 mg/dL Normal 1.8-2.4 Blood Culture 02/23/2021 [facility] n[facility] [address] [place] [address] [phone] Blood Culture No growth after <SEE NOTE> 18 1 Units are mL/min/1.73 m2 Chronic Kidney Disease Staging per NKF: Stage I & II GFR >=60 Normal to Mildly Decreased Stage III GFR 30-59 Moderately Decreased Stage IV GFR 15-29 Severely Decreased Stage V GFR <15 Very Little GFR Left ESRD GFR <15 on WAFER MACHINE OPERATOR 2 Units are mL/min/1.73 m2 Chronic Kidney Disease Staging per NKF: Stage I & II GFR >=60 Normal to Mildly Decreased Stage III GFR 30-59 Moderately Decreased Stage IV GFR 15-29 Severely Decreased Stage V GFR <15 Very Little GFR Left ESRD GFR <15 on WAFER MACHINE OPERATOR 3 Units are mL/min/1.73 m2 Chronic Kidney Disease Staging per NKF: Stage I & II GFR >=60 Normal to Mildly Decreased Stage III GFR 30-59 Moderately Decreased Stage IV GFR 15-29 Severely Decreased Stage V GFR <15 Very Little GFR Left ESRD GFR <15 on WAFER MACHINE OPERATOR 4 Units are mL/min/1.73 m2 Chronic Kidney Disease Staging per NKF: Stage I & II GFR >=60 Normal to Mildly Decreased Stage III GFR 30-59 Moderately Decreased Stage IV GFR 15-29 Severely Decreased Stage V GFR <15 Very Little GFR Left ESRD GFR <15 on WAFER MACHINE OPERATOR 5 DIAGNOSIS CRITERIA MMB ng/ml Relative Index (RI) NON-AMI < or = 5 N/A OBRIEN ZONE > 5 < or = 4 AMI > 5 > 4 6 Troponin I Reference Interva l for [employer] LOCI: 99th Percentile= 0.00-0.045 ng/ml Risk Stratification: <= 0.10 ng/ml Decreased Risk for Adverse Clinical Events. 0.10-1.50 ng/ml Increased Risk for Adv erse Clinical Events. Evaluation of additional criterion and/or repeat testing in 2-6 hours is suggested to rule out myocardial damage. >= 1.50 ng/ml Indicative of Myocardial Injury. 7 This respiratory PCR panel d etects Influenza A H1, H3 and 2009 H1 viruses, Influenza B virus, Resp iratory Syncytial Virus, Human metapneumovirus, Parainfluenza virus 1, 2, 3 and 4, Adenovirus, Rhinovirus/Enterovirus, Coronavirus HKU1, NL63, OC43, 229E and SARS-CoV-2 (COVID 19), Bordetella pertussis, Bordetella parapertussis, Mycoplasma pneumoniae and Chlamydia pneumoniae. NEGATIVE by MULTIPLEXED NUCLEIC ACID PCR SARS-CoV-2 (COVID 19) NEGATIVE - SARS-CoV-2 (COVID19) 8 Units are mL/min/1.73 m2 Chronic Kidney Disease Staging per NKF: Stage I & II GFR >=60 Normal to Mildly Decreased Stage III GFR 30-59 Moderately Decreased Stage IV GFR 15-29 Severely Decreased Stage V GFR <15 Very Little GFR Left ESRD GFR <15 on WAFER MACHINE OPERATOR 9 This respiratory PCR panel d etects Influenza A H1, H3 and 2009 H1 viruses, Influenza B virus, Resp iratory Syncytial Virus, Human metapneumovirus, Parainfluenza virus 1, 2, 3 and 4, Adenovirus, Rhinovirus/Enterovirus, Coronavirus HKU1, NL63, OC43, 229E and SARS-CoV-2 (COVID 19), Bordetella pertussis, Bordetella parapertussis, Mycoplasma pneumoniae and Chlamydia pneumoniae. NEGATIVE by MULTIPLEXED NUCLEIC ACID PCR SARS-CoV-2 (COVID 19) NEGATIVE - SARS-CoV-2 (COVID19) 10 Units are mL/min/1.73 m2 Chronic Kidney Disease Staging per NKF: Stage I & II GFR >=60 Normal to Mildly Decreased Stage III GFR 30-59 Moderately Decreased Stage IV GFR 15-29 Severely Decreased Stage V GFR <15 Very Little GFR Left ESRD GFR <15 on WAFER MACHINE OPERATOR 11 Y/N query for Sepsis Lactate Rule: Y 12 ALL PRESUMPTIVE POSITIVE FINDINGS ARE UNCONFIRMED THRESHOLD IN NG/ML AMPHETAMINES/METHAMPHET 1000 BARBITURATES 200 BENZODIAZEPINES 200 CANNABINOIDS (THC) 50 COCAINE METABOLITE 300 METHADONE 300 OPIATES 300 PHENCYCLIDINE 25 RESULTS ARE FOR MEDICAL PURPOSES ONLY. ALL URINE SPECIMENS WILL BE SAVED FOR 3 DAYS. IF CONFIRMATION OF A PRESUMPTIVE POSITIVE SCREEN RESULT IS DESIRED, CALL CHEMISTRY ([id number]) AND REQUEST URINE TO BE SENT TO REFERENCE LAB. FOR A LIST OF CLOSELY RELATED COMPOUNDS PLEASE CALL THE LAB. 13 No growth after 72 hours . A ll specimens observed for 5 days. Results final at that time. No growth after 48 hours . All specimens observed for 5 days. Results final at that time. No growth after 24 hours . All specimens observed for 5 days. Results final at that time. NO GROWTH AFTER 5 DAYS 14 Y/N query for Sepsis Lactate Rule: Y 15 DIAGNOSIS CRITERIA MMB ng/ml Relative Index (RI) NON-AMI < or = 5 N/A OBRIEN ZONE > 5 < or = 4 AMI > 5 > 4 16 Troponin I Reference Interva l for [employer] LOCI: 99th Percentile= 0.00-0.045 ng/ml Risk Stratification: <= 0.10 ng/ml Decreased Risk for Adverse Clinical Events. 0.10-1.50 ng/ml Increased Risk for Adv erse Clinical Events. Evaluation of additional criterion and/or repeat testing in 2-6 hours is suggested to rule out myocardial damage. >= 1.50 ng/ml Indicative of Myocardial Injury. 17 Units are mL/min/1.73 m2 Chronic Kidney Disease Staging per NKF: Stage I & II GFR >=60 Normal to Mildly Decreased Stage III GFR 30-59 Moderately Decreased Stage IV GFR 15-29 Severely Decreased Stage V GFR <15 Very Little GFR Left ESRD GFR <15 on WAFER MACHINE OPERATOR 18 No growth after 72 hours . A ll specimens observed for 5 days. Results final at that time. No growth after 48 hours . All specimens observed for 5 days. Results final at that time. No growth after 24 hours . All specimens observed for 5 days. Results final at that time. NO GROWTH AFTER 5 DAYS Procedures Date Code Description Status 05/04/2021 [address]643 Office/Outpatient Established Mo d MDM 30-39 Min Completed 09/14/2020 [id number] Diabetic Retinal Eye Exam [facility] 10/05/2017 [id number] Diabetic Retinal Eye Exam [facility] 09/26/2017 [id number] Diabetic Retinal Eye Exam [facility] Medical Devices Description No Information Available Encounters Type Date Location Provider Dx Diagnosis Office Visit 05/04/2021 2:00p [facility] Lino Garcia M.D. 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 07/29/2021 H54.62 Unqualified visual loss, left ey e, normal vision right eye Lino Garcia M.D. 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 07/29/2021 I10 Essential (primary) hypertension Lino Garcia M.D. 07/29/2021 F41.9 Anxiety disorder, unspecified Danial Garcia M.D. 07/29/2021 R51.9 Headache, unspecified Lino ramsey M.D. 07/29/2021 R53.83 Other fatigue Lino Garcia M.D. 07/29/2021 E78.5 Hyperlipidemia, unspecified Andrew Garcia M.D. 07/29/2021 K21.9 Gastro-esophageal reflux disease without esophagitis Lino Garcia M.D. 05/04/2021 C7B.8 Other secondary neuroendocrine t umors Lino Garcia M.D. 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 05/04/2021 I10 Essential (primary) hypertension Lino Garcia M.D. 05/04/2021 F41.9 Anxiety disorder, unspecified Danial Garcia M.D. 05/04/2021 K21.9 Gastro-esophageal reflux disease without esophagitis Lino Garcia M.D. 05/04/2021 H54.62 Unqualified visual loss, left ey e, normal vision right eye Lino Garcia M.D. 05/04/2021 E87.1 Hypo-osmolality and hyponatremia Lino Garcia M.D. 05/04/2021 R19.7 Diarrhea, unspecified Lino ramsey M.D. 05/04/2021 R53.83 Other fatigue Lino Garcia M.D. Plan of Treatment Future Appointment(s):* 11/16/2021 2:30 pm - Lino Garcia M.D. at [facility] 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 The immune therapy has caused diarrhea twice that led to hospitalization. The patient and his are going to [place] on Tuesday and will discuss alternatives.2. 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 He will follow up appropriately and Dr. Didi Veronica will titrate medication as needed.3. Hypertension: Blood pressure is stable on current regimen, will continue and monitor.4. Anxiety disorder: Appears to be stable. He will continue to follow up with Dr. Newsome. We will monitor.5. Gastro-esophageal reflux disease without esophagitis: Requires omeprazole for symptom control, will continue and monitor.6. Unqualified visual loss, left eye, normal vision right eye: Most likely related to tumor growth, but we will continue to monitor. Patient will continue to follow up at [facility].7. Hypo-osmolality and hyponatremia: Patient had significantly low sodium. His is closely managing this to avoid any such episode.8. Ruba rrhea: Slowly improving; however, he was hospitalized after each treatment of his tumor and will discuss about this.9. Other fatigue: Multifactorial, patient is on high dose steroid and will follow up.Ongoing cares: I am going to see him again in 4 months with TBD (based on those by Jeovanny and Dr. Didi Veronica). If he has new problems or issues sooner he will let us know. Functional Status Description No Information Available Mental Status Description No Information Available Referrals Description No Information Available
--- OUTSIDE RECORDS SUMMARY | 2021-08-02 08:29 | CCD | Continuity of Care Document ---
Author Author Ross GARCIA M.D. Organization Unknown Address [id number] [place] [address] Phone [phone] Care Team Providers Care Supervisory Forester Name Role Phone Lino Garcia MD AUTM [phone] Wally Newsome DO AUTM [phone] Pam Veronica MD AUTM [phone] Rickey Valdez MD AUTM [facility] AUTM [phone] Problems Active Problems Provider Date Pituitary adenoma [...] Capsules 1 by mouth twice a day ([facility] wants a total of 300mg bid) 60bernardino [...] Tablets 2 tabs by mouth daily (per [facility]) Lino Garcia M.D. 021 - 07/29/2021 Immunizations CPT Code Status Date Vaccine Lot # [id number] Given 07/02/2014 Influenza Virus Vaccine [id number] Given 07/25/2013 Influenza Virus Vaccine 99805 Given 06/28/2013 Adacel- Tetanus Diphtheria P ertussis 94284 Given 08/29/2012 Influenza Virus Vaccine 90486 Given 07/17/2010 Influenza Virus Vaccine 14101 Given 11/18/2008 Pneumovax 23 70570 Given 11/18/1997 Adacel- Tetanus Diphtheria P ertussis 68970 Refused 08/28/2018 Influenza Virus Vaccine, Quadrivalent ([id number]), Derived From Cell [id number] Refused 12/19/2012 Zoster Vaccine Vital Signs Date [...] Test Result H/L Range Note CMP 06/16/2021 [facility] [address] [place] [address] [phone] Glucose, Fasting 116 mg/dL High 70-100 Blood [...] Ratio 1.0 Normal Laboratory test finding 06/16/2021 [facility] [address] [place] [address] [phone] Magnesium Level 2.3 mg/dL Normal 1.8-2.4 Free T4 0.84 ng/dL Normal 0.76-1.46 CBC W/Auto Differential 06/16/2021 [facility] [address] [place] [address] [phone] White Blood Count 10.8 10 High 4.0-10.0 [...] 36.0-66.0 Lymph % 17.5 % Low 24.0-44.0 Mcminn % 5.7 % Normal 2.0-8.0 Eos % 0.1 % Normal 0.0-3.0 Baso % 1.3 % High 0.0-1.0 Immature Granulocyte % 4.8 % High 0-3.0 Nucleated Red Blood Cell % 0.0 % Normal 0-0 Neutrophils # 7.6 10 Normal 1.5-8.5 Lymph # 1.9 10 Normal 1.5-5.0 Mcminn # 0.6 10 Normal 0.0-0.8 Eos # 0.0 10 Normal 0.0-0.5 Baso # 0.1 10 Normal 0.0-0.2 CBC W/Auto Differential 06/02/2021 [place] [address] [phone] White Blood Count 11.4 10 High 4.0-10.0 [...] 36.0-66.0 Lymph % 16.8 % Low 24.0-44.0 Mcminn % 5.7 % Normal 2.0-8.0 Eos % 0.1 % Normal 0.0-3.0 Baso % 1.0 % Normal 0.0-1.0 Immature Granulocyte % 4.5 % High 0-3.0 Nucleated Red Blood Cell % 0.2 % High 0-0 Neutrophils # 8.2 10 Normal 1.5-8.5 Lymph # 1.9 10 Normal 1.5-5.0 Mcminn # 0.7 10 Normal 0.0-0.8 Eos # 0.0 10 Normal 0.0-0.5 Baso # 0.1 10 Normal 0.0-0.2 CMP 06/02/2021 [facility] [address] [place] [address] [phone] Glucose, Fasting 149 mg/dL High 70-100 Blood [...] Ratio 1.1 Normal Laboratory test finding 06/02/[address] [address] [phone] Magnesium Level 2.0 mg/dL Normal 1.8-2.4 Free T4 0.79 ng/dL Normal 0.76-1.46 CBC With Differential 05/19/[address] [address] [phone] White Blood Count 11.6 10 High 4.0-10.0 [...] 36.0-66.0 Lymph % 13.2 % Low 24.0-44.0 Mcminn % 4.0 % Normal 2.0-8.0 Eos % 0.0 % Normal 0.0-3.0 Baso % 1.2 % High 0.0-1.0 Immature Granulocyte % 5.0 % High 0-3.0 Nucleated Red Blood Cell % 0.2 % High 0-0 Neutrophils # 8.9 10 High 1.5-8.5 Lymph # 1.5 10 Normal 1.5-5.0 Mcminn # 0.5 10 Normal 0.0-0.8 Eos # 0.0 10 Normal 0.0-0.5 Baso # 0.1 10 Normal 0.0-0.2 Comprehensive Metabolic Profil 05/19/[address] [address] [phone] Glucose, Fasting 257 mg/dL High 70-100 Blood [...] Ratio 1.1 Normal Laboratory test finding 05/19/[address] [address] [phone] Magnesium Level 2.2 mg/dL Normal 1.8-2.4 Free T4 0.73 ng/dL Low 0.76-1.46 Laboratory test finding 03/05/2021 [facility] [address] [place] [address] [phone] Bedside Glucose 160 mg/dL High 80-115 Laboratory test finding 03/05/2021 [address] [place] [address] [phone] Thyroid Stimulating Hormone < 0.005 uIU/ML Low 0.358-3.740 Uric Acid 4.8 mg/dL Normal 3.5-7.2 Magnesium Level 2.0 mg/dL Normal 1.8-2.4 Free T4 0.75 ng/dL Low 0.76-1.46 Basic Metabolic Profile 03/05/2021 [address] [place] [address] [phone] Glucose, Fasting 153 mg/dL High 70-100 Blood [...] 8.3 mg/dL Low 8.8-10.2 Liver Profile 03/05/2021 [facility] [address] [place] [address] [phone] Ast/Sgot 20 U/L Normal 7-37 Alt/SGPT 49 U/L Normal 12-78 Alkaline Phosphatase 88 U/L Normal 45-117 Bilirubin,Total 1.0 mg/dL Normal 0.2-1.0 Bilirubin,Direct 0.4 mg/dL High 0.0-0.2 Total Protein 5.4 GM/DL Low 6.4-8.2 Albumin 2.8 GM/DL Low 3.2-5.2 Albumin/Globulin Ratio 1.1 Normal Cardiac Marker Panel 03/05/2021 [facility] [address] [place] [address] [phone] CPK Creatine Phosphokinase 33 U/L Low 39-30 8 CK-MB Value Mass < 1.0 NG/ML Normal <3.6 MB/CK Relative Index 3.03 Normal < Or =4 5 Troponin I < 0.02 NG/ML Normal < 0.10 6 Laboratory test finding 03/05/[address] [id number] [phone] Platelet Estimate NORMAL Normal Normal Differential 03/05/2021 [facility] [address] [place] [phone] Neutrophils 78 % High 28-66 Bands 3 % Normal < 11 Lymphocytes 9 % Low 16-44 Monocytes 8 % High 0-5 Eosinophils 1 % Normal 0-3 Atypical Lymph 1 % Normal 0-5 Anisocytosis 1+ Normal CBC With Differential 03/05/[address] [address] [phone] White Blood Count 10.3 10 High 4.0-10.0 [...] 0.0 % Normal 0-0 Respiratory Panel 03/05/2021 [facility] [address] [place] [address] [phone] Respiratory Panel This respiratory <SEE NOTE> 7 Laboratory test finding 03/04/[address] [address] [phone] Ionized Calcium 4.6 mg/dL Normal 4.5-5.3 Laboratory test finding 03/04/[address] [address] [phone] Magnesium Level 1.7 mg/dL Low 1.8-2.4 Basic Metabolic Profile 03/04/[address] [address] [phone] Glucose, Fasting 120 mg/dL High 70-100 Blood [...] 8.4 mg/dL Low 8.8-10.2 Respiratory Panel 03/01/2021 [facility] [address] [place] [phone] Respiratory Panel This respiratory <SEE NOTE> 9 Basic Metabolic Profile 02/23/[address] [address] [phone] Glucose, Fasting 148 mg/dL High 70-100 Blood [...] mg/dL Low 8.8-10.2 Laboratory test finding 02/23/[address] [address] [phone] Lactic Acid Sepsis Protocol 2.4 mmol/L Critical high 0 .4-2.0 11 Ua W/ Reflex To Culture 02/23/[address] [address] [phone] Appearance, Urine RFX CLEAR Normal Clear Color, Urine RFX YELLOW Normal Yellow PH,Urine RFX 6.0 units Normal 5.0-9.0 Specific [place] Ur Auto RFX 1.020 Normal 1.002-1.035 Protein, [...] /LPF Normal 0-1 Laboratory test finding 02/23/[address] [address] [phone] Osmolality Urine 693 MOSM/KG Normal 50-1400 Creatinine,Random Urine 105.0 mg/dL Normal Sodium,Random Urine 111 mEq/L Normal Drug Eval Toxicology ED Only 02/23/[address] [address] [phone] Amphetamines Level Urine NEGATIVE Normal Negativ e Barbiturates Urine NEGATIVE Normal Negative Benzodiazepines Urine NEGATIVE Normal Negative Cannabinoids Urine NEGATIVE Normal Negative Cocaine Metabolite Urine NEGATIVE Normal Negative Methadone Urine NEGATIVE Normal Negative Opiates Urine NEGATIVE Normal Negative Phencyclidine Urine NEGATIVE Normal Negative 12 Blood Culture 02/23/2021 [facility] [address] [place] [address] [phone] Blood Culture No growth after <SEE NOTE> 13 Laboratory test finding 02/23/[address] 7470534 [phone] Bedside Glucose 216 mg/dL High 80-115 CBC With Differential 02/23/[address] [id number] [phone] White Blood Count 8.0 10 Normal 4.0-10.0 [...] 36.0-66.0 Lymph % 14.8 % Low 24.0-44.0 Mcminn % 4.1 % Normal 2.0-8.0 Eos % 0.0 % Normal 0.0-3.0 Baso % 1.5 % High 0.0-1.0 Immature Granulocyte % 5.0 % High 0-3.0 Nucleated Red Blood Cell % 0.4 % High 0-0 Neutrophils # 6.0 10 Normal 1.5-8.5 Lymph # 1.2 10 Low 1.5-5.0 Mcminn # 0.3 10 Normal 0.0-0.8 Eos # 0.0 10 Normal 0.0-0.5 Baso # 0.1 10 Normal 0.0-0.2 Laboratory test finding 02/23/2021 [facility] [address] [id number] [phone] Ammonia 26 uMOL/L Normal <32 Lactic Acid Sepsis Protocol 3.9 mmol/L Critical high 0.4-2.0 14 Cardiac Marker Panel 02/23/2021 [facility] [address] [place] [address] [phone] CPK Creatine Phosphokinase 22 U/L Low 39-30 8 CK-MB Value Mass 1.2 NG/ML Normal <3.6 MB/CK Relative Index 5.45 High < Or =4 15 Troponin I < 0.02 NG/ML Normal < 0.10 16 Liver Profile 02/23/2021 [facility] [address] [place] [address] [phone] Ast/Sgot 18 U/L Normal 7-37 Alt/SGPT 47 U/L Normal 12-78 Alkaline Phosphatase 89 U/L Normal 45-117 Bilirubin,Total 0.6 mg/dL Normal 0.2-1.0 Bilirubin,Direct 0.2 mg/dL Normal 0.0-0.2 Total Protein 5.5 GM/DL Low 6.4-8.2 Albumin 2.8 GM/DL Low 3.2-5.2 Albumin/Globulin Ratio 1.0 Normal Basic Metabolic Profile 02/23/[address] [address] [phone] Glucose, Fasting 223 mg/dL High 70-100 Blood [...] mg/dL Low 8.8-10.2 Laboratory test finding 02/23/[address] [address] [phone] Osmolality Serum 294 MOSM/KG Normal 280-301 Ethyl Alcohol (Ethanol) < 0.003 % Normal 0.000-0.010 Salicylate Level < 1.7 mg/dL Low 5.0-30.0 Acetaminophen Level 2.7 UG/ML Low 10.0-30.0 Thyroid Stimulating Hormone < 0.005 uIU/ML Low 0.358-3.740 Free T4 0.88 ng/dL Normal 0.76-1.46 Magnesium Level 1.8 mg/dL Normal 1.8-2.4 Blood Culture 02/23/2021 [facility] [address] [place] [address] [phone] Blood Culture No growth after <SEE NOTE> 18 1 Units are mL/min/1.73 m2 Chronic Kidney Disease Staging per NKF: Stage I & II GFR >=60 Normal to Mildly Decreased Stage III GFR 30-59 Moderately Decreased Stage IV GFR 15-29 Severely Decreased Stage V GFR <15 Very Little GFR Left ESRD GFR <15 on CEMENTER HAND 2 Units are mL/min/1.73 m2 Chronic Kidney Disease Staging per NKF: Stage I & II GFR >=60 Normal to Mildly Decreased Stage III GFR 30-59 Moderately Decreased Stage IV GFR 15-29 Severely Decreased Stage V GFR <15 Very Little GFR Left ESRD GFR <15 on CEMENTER HAND 3 Units are mL/min/1.73 m2 Chronic Kidney Disease Staging per NKF: Stage I & II GFR >=60 Normal to Mildly Decreased Stage III GFR 30-59 Moderately Decreased Stage IV GFR 15-29 Severely Decreased Stage V GFR <15 Very Little GFR Left ESRD GFR <15 on CEMENTER HAND 4 Units are mL/min/1.73 m2 Chronic Kidney Disease Staging per NKF: Stage I & II GFR >=60 Normal to Mildly Decreased Stage III GFR 30-59 Moderately Decreased Stage IV GFR 15-29 Severely Decreased Stage V GFR <15 Very Little GFR Left ESRD GFR <15 on CEMENTER HAND 5 DIAGNOSIS CRITERIA MMB ng/ml Relative Index (RI) NON-AMI < or = 5 N/A OBRIEN ZONE > 5 < or = 4 AMI > 5 > 4 6 Troponin I Reference Interva l for [employer] LOCI: 99th Percentile= 0.00-0.045 ng/ml Risk Stratification: [...] Little GFR Left ESRD GFR <15 on CEMENTER HAND 9 This respiratory PCR panel d etects [...] Little GFR Left ESRD GFR <15 on CEMENTER HAND 11 Y/N query for Sepsis Lactate Rule: [...] 16 Troponin I Reference Interva l for [employer] LOCI: 99th Percentile= 0.00-0.045 ng/ml Risk Stratification: [...] Little GFR Left ESRD GFR <15 on CEMENTER HAND 18 No growth after 72 hours . [...] DAYS Procedures Date Code Description Status 05/04/2021 17243 Office/Outpatient Established Mo d MDM 30-39 Min Completed 09/14/2020 [id number] Diabetic Retinal Eye Exam [facility] 10/05/2017 [id number] Diabetic Retinal Eye Exam [facility] 09/26/2017 [id number] Diabetic Retinal Eye Exam [facility] Medical Devices Description No Information Available Encounters Type Date Location Provider Dx Diagnosis Office Visit 05/04/2021 2:00p [facility] Lino Garcia M.D. C7B.8 Other [...] 2:30 pm - Lino Garcia M.D. at [facility] 05/04/2021 - Lino Garcia M.D.* [...] The patient and his are going to [place] on Tuesday and will discuss alternatives.2. Hypopituitarism: [...] Patient will continue to follow up at [facility].7. Hypo-osmolality and hyponatremia: Patient had [...]
--- OUTSIDE RECORDS SUMMARY | 2021-08-02 08:29 | CCD | Continuity of Care Document ---
Author Author Ross GARCIA M.D. Organization Unknown Address [id number] [place] [address] Phone [phone] Care Team Providers Care Crap Game Box Person Name Role Phone Lino Garcia MD AUTM [phone] Wally Newsome DO AUTM [phone] Pam Veronica MD AUTM [phone] Rickey Valdez MD AUTM [employer] AUTM [phone] Problems Active Problems Provider Date Pituitary adenoma [...] Use Start: Unknown Patient has never smoked Allergies, Adverse Reactions, Alerts Active Allergies Criticality Reaction | Severity Comments Date Amoxicillin Unable to assess criticality rash 04/22/2015 Medications Active Medications SIG Qnty Indications Ordering Provide r Date Oyster Shell Calcium 500mg Tablets 1 by mouth twice a day 180tabs Lino Garcia M.D. 1 Prednisone 20mg Tablets 2 tabs by mouth daily (per [facility]) Lino Garcia M.D. 021 Potassium Chloride ER 20Meq Tablet s ER take one tablet by mouth three times a day 90veena Garcia M.D. 03/20/2021 Lyrica 200mg Capsules 1 by mouth twice a day ([facility] wants a total of 300mg bid) 60bernardino [...] mouth three times a day-take with food 90tacristopher Garcia M.D. 10/25/2017 Liothyronine Sodium 25mcg Tablets take one tablet by mouth every day with 5-10mcg liothyronine 90veena Garcia M.D. 07/04/2017 Dhea 50mg Capsules take 2 tab s po qd Lino Garcia M.D. 04/22/2015 Krill Oil Plus 500mg Capsules 1 po qd Lino Garcia M.D. 04/22/2015 Vitamin [...] 1 by mouth once a day Wally Newsome, Clonazepam 1mg Tablets 1 by m outh bid Wally Newsome,DO Desvenlafaxine ER 100mg Tablets ER 24HR 1 by mouth every day 30tacristopher Garcia M.D. 00 Hydrocortisone 10mg Tablets 2 [...] 1 by mouth every day 90tabs Wendi Gupta DO Bactrim 400-80mg Tablets 3x/wk (Px for sinuses - Rx [facility]) Unknown Lyrica 100mg Capsules take 3 capsule twice a day 180capbalaji Lam MD History Medications Lyrica 200mg Capsules 1 by mouth twice a day 60bernardino Garcia M.D. 01/05/2021 - 01/26/2021 Immunizations CPT Code Status Date Vaccine Lot # [id number] Given 07/02/2014 Influenza Virus Vaccine 44016 Given 07/25/2013 Influenza Virus Vaccine 18973 Given 06/28/2013 Adacel- Tetanus Diphtheria P ertussis (Age64 & Under) 38580 Given 08/29/2012 Influenza Virus Vaccine 59407 Given 07/17/2010 Influenza Virus Vaccine 38540 Given 11/18/2008 Pneumovax 23 [id number] Given 11/18/1997 Adacel- Tetanus Diphtheria P ertussis (Age64 & Under) 43617 Refused 08/28/2018 Influenza Virus Vaccine, Quadrivalent ([id number]), Derived From Cell 19947 Refused 12/19/2012 Zoster Vaccine Vital Signs Date Vital Result Comment 05/04/2021 2:29pm BP Systolic 136 mmHg BP Diastolic 86 mmHg Heart Rate 104 /min Height 64 inches 5'4" Weight 184.00 lb BMI (Body Mass Index) 31.6 kg/m2 01/26/2021 8:04am BP Systolic 126 mmHg BP Diastolic 80 mmHg Heart Rate 78 /min Height 64 inches 5'4" Weight 185.00 lb BMI (Body Mass Index) 31.8 kg/m2 Results Test Acquired Date Facility Test Result H/L Range Note CMP 06/02/2021 [facility] [address], [place] [id number] [phone] Glucose, Fasting 149 mg/dL High 70-100 Blood Urea Nitrogen 19 mg/dL High 7-18 Creatinine For GFR 1.07 mg/dL Normal 0.70-1.30 Glomerular Filtration Rate > 60.0 Normal >42 1 Sodium Level 139 mEq/L Normal 136-145 Potassium [...] Ratio 1.1 Normal Laboratory test finding 06/02/2021 [facility] [address], [place] [id number] [phone] Magnesium Level 2.0 mg/dL Normal 1.8-2.4 Free T4 0.79 ng/dL Normal 0.76-1.46 CBC W/Auto Differential 06/02/2021 [facility] [address] [place] [address] [phone] White Blood Count 11.4 10 High 4.0-10.0 [...] 36.0-66.0 Lymph % 16.8 % Low 24.0-44.0 [place] % 5.7 % Normal 2.0-8.0 Eos % 0.1 % Normal 0.0-3.0 Baso % 1.0 % Normal 0.0-1.0 Immature Granulocyte % 4.5 % High 0-3.0 Nucleated Red Blood Cell % 0.2 % High 0-0 Neutrophils # 8.2 10 Normal 1.5-8.5 Lymph # 1.9 10 Normal 1.5-5.0 [place] # 0.7 10 Normal 0.0-0.8 Eos # 0.0 10 Normal 0.0-0.5 Baso # 0.1 10 Normal 0.0-0.2 CBC With Differential 05/19/[address] [id number] [phone] White Blood Count 11.6 10 High 4.0-10.0 [...] 36.0-66.0 Lymph % 13.2 % Low 24.0-44.0 [place] % 4.0 % Normal 2.0-8.0 Eos % 0.0 % Normal 0.0-3.0 Baso % 1.2 % High 0.0-1.0 Immature Granulocyte % 5.0 % High 0-3.0 Nucleated Red Blood Cell % 0.2 % High 0-0 Neutrophils # 8.9 10 High 1.5-8.5 Lymph # 1.5 10 Normal 1.5-5.0 [place] # 0.5 10 Normal 0.0-0.8 Eos # 0.0 10 Normal 0.0-0.5 Baso # 0.1 10 Normal 0.0-0.2 Comprehensive Metabolic Profil 05/19/[address] [address] [phone] Glucose, Fasting 257 mg/dL High 70-100 Blood Urea Nitrogen 20 mg/dL High 7-18 Creatinine For GFR 1.25 mg/dL Normal 0.70-1.30 Glomerular Filtration Rate > 60.0 Normal >42 2 Sodium Level 138 mEq/L Normal 136-145 Potassium [...] 1.1 Normal Laboratory test finding 05/19/[address] [address] [phone] Magnesium Level 2.2 mg/dL Normal 1.8-2.4 Free T4 0.73 ng/dL Low 0.76-1.46 Basic Metabolic Profile 03/05/[address] [address] [phone] Glucose, Fasting 153 mg/dL High 70-100 Blood Urea Nitrogen 16 mg/dL Significant change down 7-18 Creatinine For GFR 1.11 mg/dL Normal 0.70-1.30 Glomerular Filtration Rate > 60.0 Normal >49 3 Sodium Level 126 mEq/L 136-145 Potassium Serum 4.5 mEq/L Normal 3.5-5.1 Chloride Level 94 mEq/L Low 98-107 Carbon Dioxide Level 26 mEq/L Normal 21-32 Anion Gap 6 mEq/L Low 8-16 Calcium Level 8.3 mg/dL Low 8.8-10.2 Laboratory test finding 03/05/[address] [address] [phone] Thyroid Stimulating Hormone < 0.005 uIU/ML Low 0.358-3.740 Uric Acid 4.8 mg/dL Normal 3.5-7.2 Magnesium Level 2.0 mg/dL Normal 1.8-2.4 Free T4 0.75 ng/dL Low 0.76-1.46 Liver Profile 03/05/2021 [facility] [address] [place] [address] [phone] Ast/Sgot 20 U/L Normal 7-37 Alt/SGPT 49 U/L Normal 12-78 Alkaline Phosphatase 88 U/L Normal 45-117 Bilirubin,Total 1.0 mg/dL Normal 0.2-1.0 Bilirubin,Direct 0.4 mg/dL High 0.0-0.2 Total Protein 5.4 GM/DL Low 6.4-8.2 Albumin 2.8 GM/DL Low 3.2-5.2 Albumin/Globulin Ratio 1.1 Normal Cardiac Marker Panel 03/05/2021 [facility] [address] [place] [address] [phone] CPK Creatine Phosphokinase 33 U/L Low 39-30 8 CK-MB Value Mass < 1.0 NG/ML Normal <3.6 MB/CK Relative Index 3.03 Normal < Or =4 4 Troponin I < 0.02 NG/ML Normal < 0.10 5 Laboratory test finding 03/05/2021 [facility] [address] [place] [address] [phone] Platelet Estimate NORMAL Normal Normal Differential 03/05/2021 [facility] [address] [place] [address] [phone] Neutrophils 78 % High 28-66 Bands 3 % Normal < 11 Lymphocytes 9 % Low 16-44 Monocytes 8 % High 0-5 Eosinophils 1 % Normal 0-3 Atypical Lymph 1 % Normal 0-5 Anisocytosis 1+ Normal CBC With Differential 03/05/[address] [address] [phone] White Blood Count 10.3 10 High 4.0-10.0 [...] Blood Cell % 0.0 % Normal 0-0 Laboratory test finding 03/05/[address] [address] [phone] Bedside Glucose 160 mg/dL High 80-115 Respiratory Panel 03/05/2021 [facility] [address] [place] [address] [phone] Respiratory Panel This respiratory <SEE NOTE> 6 Laboratory test finding 03/04/[address] [address] [phone] Ionized Calcium 4.6 mg/dL Normal 4.5-5.3 Basic Metabolic Profile 03/04/[address] [address] [phone] Glucose, Fasting 120 mg/dL High 70-100 Blood Urea Nitrogen 9 mg/dL Normal 7-18 Creatinine For GFR 0.83 mg/dL Normal 0.70-1.30 Glomerular Filtration Rate > 60.0 Normal >49 7 Sodium Level 135 mEq/L Low 136-145 Potassium Serum 4.3 mEq/L Significant change down 3.5-5.1 Chloride Level 100 mEq/L Normal 98-107 Carbon Dioxide Level 27 mEq/L Normal 21-32 Anion Gap 8 mEq/L Normal 8-16 Calcium Level 8.4 mg/dL Low 8.8-10.2 Laboratory test finding 03/04/[address] [address] [phone] Magnesium Level 1.7 mg/dL Low 1.8-2.4 Respiratory Panel 03/01/2021 [facility] [address] [place] [address] [phone] Respiratory Panel This respiratory <SEE NOTE> 8 Laboratory test finding 02/23/[address] [address] [phone] Lactic Acid Sepsis Protocol 2.4 mmol/L Critical high 0 .4-2.0 9 Blood Culture [facility] [address] [place] [address] [phone] Blood Culture No growth after <SEE NOTE> 10 Laboratory test finding 02/23/[address] [address] [phone] Osmolality Serum 294 MOSM/KG Normal 280-301 Ethyl Alcohol (Ethanol) < 0.003 % Normal 0.000-0.010 Salicylate Level < 1.7 mg/dL Low 5.0-30.0 Acetaminophen Level 2.7 UG/ML Low 10.0-30.0 Thyroid Stimulating Hormone < 0.005 uIU/ML Low 0.358-3.740 Free T4 0.88 ng/dL Normal 0.76-1.46 Magnesium Level 1.8 mg/dL Normal 1.8-2.4 Basic Metabolic Profile 02/23/[address] [address] [phone] Glucose, Fasting 223 mg/dL High 70-100 Blood Urea Nitrogen 16 mg/dL Normal 7-18 Creatinine For GFR 1.00 mg/dL Normal 0.70-1.30 Glomerular Filtration Rate > 60.0 Normal >49 1 1 Sodium Level 140 mEq/L Normal 136-145 Potassium Serum 3.0 mEq/L Low 3.5-5.1 Chloride Level 104 mEq/L Normal 98-107 Carbon Dioxide Level 27 mEq/L Normal 21-32 Anion Gap 9 mEq/L Normal 8-16 Calcium Level 8.5 mg/dL Low 8.8-10.2 Liver Profile 02/23/2021 [facility] [address] [place] [address] [phone] Ast/Sgot 18 U/L Normal 7-37 Alt/SGPT 47 U/L Normal 12-78 Alkaline Phosphatase 89 U/L Normal 45-117 Bilirubin,Total 0.6 mg/dL Normal 0.2-1.0 Bilirubin,Direct 0.2 mg/dL Normal 0.0-0.2 Total Protein 5.5 GM/DL Low 6.4-8.2 Albumin 2.8 GM/DL Low 3.2-5.2 Albumin/Globulin Ratio 1.0 Normal Cardiac Marker Panel 02/23/2021 [facility] [address] [place] [address] [phone] CPK Creatine Phosphokinase 22 U/L Low 39-30 8 CK-MB Value Mass 1.2 NG/ML Normal <3.6 MB/CK Relative Index 5.45 High < Or =4 12 Troponin I < 0.02 NG/ML Normal < 0.10 13 Laboratory test finding 02/23/[address] [address] [phone] Ammonia 26 uMOL/L Normal <32 Lactic Acid Sepsis Protocol 3.9 mmol/L Critical high 0.4-2.0 14 CBC With Differential 02/23/[address] [address] [phone] White Blood Count 8.0 10 Normal 4.0-10.0 [...] 36.0-66.0 Lymph % 14.8 % Low 24.0-44.0 [place] % 4.1 % Normal 2.0-8.0 Eos % 0.0 % Normal 0.0-3.0 Baso % 1.5 % High 0.0-1.0 Immature Granulocyte % 5.0 % High 0-3.0 Nucleated Red Blood Cell % 0.4 % High 0-0 Neutrophils # 6.0 10 Normal 1.5-8.5 Lymph # 1.2 10 Low 1.5-5.0 [place] # 0.3 10 Normal 0.0-0.8 Eos # 0.0 10 Normal 0.0-0.5 Baso # 0.1 10 Normal 0.0-0.2 Laboratory test finding 02/23/[address] [address] [phone] Bedside Glucose 216 mg/dL High 80-115 Blood Culture 02/23/2021 [facility] [address] [place] [address] [phone] Blood Culture No growth after <SEE NOTE> 15 Drug Eval Toxicology ED Only 02/23/[address] [address] [phone] Amphetamines Level Urine NEGATIVE Normal Negativ e Barbiturates Urine NEGATIVE Normal Negative Benzodiazepines Urine NEGATIVE Normal Negative Cannabinoids Urine NEGATIVE Normal Negative Cocaine Metabolite Urine NEGATIVE Normal Negative Methadone Urine NEGATIVE Normal Negative Opiates Urine NEGATIVE Normal Negative Phencyclidine Urine NEGATIVE Normal Negative 16 Laboratory test finding 02/23/[address] [address] [phone] Osmolality Urine 693 MOSM/KG Normal 50-1400 Creatinine,Random Urine 105.0 mg/dL Normal Sodium,Random Urine 111 mEq/L Normal Ua W/ Reflex To Culture 02/23/2021 [facility] [address] [place] [address] [phone] Appearance, Urine RFX CLEAR Normal Clear Color, Urine RFX YELLOW Normal Yellow PH,Urine RFX 6.0 units Normal 5.0-9.0 Specific [place] Ur Auto RFX 1.020 Normal 1.002-1.035 Protein, [...] Urine Auto RFX 0 /LPF Normal 0-1 Basic Metabolic Profile 02/23/2021 [facility] [address], [place] [address] [phone] Glucose, Fasting 148 mg/dL High 70-100 Blood Urea Nitrogen 14 mg/dL Normal 7-18 Creatinine For GFR 0.89 mg/dL Normal 0.70-1.30 Glomerular Filtration Rate > 60.0 Normal >49 1 7 Sodium Level 143 mEq/L Normal 136-145 Potassium Serum 3.6 mEq/L Normal 3.5-5.1 Chloride Level 111 mEq/L High 98-107 Carbon Dioxide Level 27 mEq/L Normal 21-32 Anion Gap 5 mEq/L Low 8-16 Calcium Level 7.4 mg/dL Low 8.8-10.2 Laboratory test finding 01/26/2021 [facility] [address], [place] [address] [phone] Testosterone 201 ng/dL Low 241-827 18 Complete Blood Count 01/26/2021 [facility] [employer] Technical Sales Representatives: Dr Chon Lam [place], [place] [id number] [phone] WBC 13.0 x10*3/UL High 4.1 - 10.9 19 RBC 4.97 x10*6/UL 4.20 - 6.30 Hemoglobin 15.1 g/dL 12.0 - 18.0 Hematocrit 45.1 % 37.0 - 51.0 MCV 90.8 fL 80.0 - 97.0 MCH 30.4 pg 26.0 - 32.0 MCHC 33.5 g/dL 31.0 - 38.0 RDW 15.3 % High 11.6 - 13.7 PLT 187 x10*3/UL 140 - 440 MPV 8.3 FL 7.8 - 11.0 Lymph % 10.8 % 10.0 - 58.5 Mid % 3.6 % 1.7 - 9.3 Neut % 85.6 % 37.0 - 92.0 Lymph # 1.4 x10*3/UL 0.6 - 4.1 Mid # 0.4 x10*3/UL 0.1 - 0.6 Neut # 11.2 x10*3/UL High 2.0 - 7.8 Comprehensive Chem Profile 01/26/2021 [facility], Technical Sales Representatives: [place] [address] [phone] Glucose 248 mg/dL High 74 - 99 20 BUN 19 mg/dL High 7 - 18 Creatinine 1.1 mg/dL 0.6 - 1.3 Sodium 141 mEq/L 136 - 145 Potassium 3.2 mEq/L Low 3.5 - 5.1 Chloride 102 mEq/L 98 - 107 Carbon Dioxide 25 mEq/L 21 - 32 Calcium 8.2 mg/dL Low 8.5 - 10.1 Alk. Phosphatase 110 mg/dL 46 - 116 Total Bilirubin 0.6 mg/dL 0.2 - 1.0 Ast (Sgot) 22 U/L 15 - 37 Alt (SGPT) 70 U/L 12 - 78 Albumin 2.8 g/dL Low 3.4 - 5.0 Total Protein 5.8 g/dL Low 6.4 - 8.2 A/G Ratio 0.93 CALC Low 1.00 - 1.90 GFR >= 60 mL/min >60 GFR >= 60 mL/min >60 21 A1c 01/26/2021 [facility] , Technical Sales Representatives: [place] [address] [phone] Hba1c 6.5 % High <5.7 22 Est Avg Glucose 140 mg/dL High 60 - 110 Laboratory test finding 01/26/2021 [facility] [employer] [facility] Technical Sales Representatives: Dr Chon Lam [place], [place] [address] [phone] T4 Free 0.93 ng/dL 0.76 - 1.46 CMP W/Egfr 01/08/2021 [facility] [address] [place] [phone] Glucose, Fasting 237 mg/dL High 70-100 Blood Urea Nitrogen 16 mg/dL Normal 7-18 Creatinine For GFR 1.11 mg/dL Normal 0.70-1.30 Glomerular Filtration Rate > 60.0 Normal >49 2 3 Sodium Level 141 mEq/L Normal 136-145 Potassium Serum 3.9 mEq/L Normal 3.5-5.1 Chloride Level 103 mEq/L Normal 98-107 Carbon Dioxide Level 30 mEq/L Normal 21-32 Anion Gap 8 mEq/L Normal 8-16 Calcium Level 8.3 mg/dL Low 8.8-10.2 Ast/Sgot 21 U/L Normal 7-37 Alt/SGPT 62 U/L Normal 12-78 Alkaline Phosphatase 126 U/L High 45-117 Bilirubin,Total 0.5 mg/dL Normal 0.2-1.0 Total Protein 5.3 GM/DL Low 6.4-8.2 Albumin 2.6 GM/DL Low 3.2-5.2 Albumin/Globulin Ratio 1.0 Normal Laboratory test finding 01/08/[address] [id number] [phone] Magnesium Level 2.3 mg/dL Normal 1.8-2.4 Basic Metabolic Profile 01/08/2021 [facility] [address] [place] [phone] Glucose, Fasting 226 mg/dL High 70-100 Blood Urea Nitrogen 15 mg/dL Normal 7-18 Creatinine For GFR 1.09 mg/dL Normal 0.70-1.30 Glomerular Filtration Rate > 60.0 Normal >49 2 4 Sodium Level 139 mEq/L Normal 136-145 Potassium Serum 3.8 mEq/L Normal 3.5-5.1 Chloride Level 103 mEq/L Normal 98-107 Carbon Dioxide Level 30 mEq/L Normal 21-32 Anion Gap 6 mEq/L Low 8-16 Calcium Level 7.9 mg/dL Low 8.8-10.2 1 Units are mL/min/1.73 m2 Chronic Kidney Disease Staging per NKF: Stage I & II GFR >=60 Normal to Mildly Decreased Stage III GFR 30-59 Moderately Decreased Stage IV GFR 15-29 Severely Decreased Stage V GFR <15 Very Little GFR Left ESRD GFR <15 on REGISTERED NURSE SUPERVISOR 2 Units are mL/min/1.73 m2 Chronic Kidney Disease Staging per NKF: Stage I & II GFR >=60 Normal to Mildly Decreased Stage III GFR 30-59 Moderately Decreased Stage IV GFR 15-29 Severely Decreased Stage V GFR <15 Very Little GFR Left ESRD GFR <15 on REGISTERED NURSE SUPERVISOR 3 Units are mL/min/1.73 m2 Chronic Kidney Disease Staging per NKF: Stage I & II GFR >=60 Normal to Mildly Decreased Stage III GFR 30-59 Moderately Decreased Stage IV GFR 15-29 Severely Decreased Stage V GFR <15 Very Little GFR Left ESRD GFR <15 on REGISTERED NURSE SUPERVISOR 4 DIAGNOSIS CRITERIA MMB ng/ml Relative Index (RI) NON-AMI < or = 5 N/A OBRIEN ZONE > 5 < or = 4 AMI > 5 > 4 5 Troponin I Reference Interva l for Siemens [place] LOCI: 99th Percentile= 0.00-0.045 ng/ml Risk Stratification: <= 0.10 ng/ml Decreased Risk for Adverse Clinical Events. 0.10-1.50 ng/ml Increased Risk for Adv erse Clinical Events. Evaluation of additional criterion and/or repeat testing in 2-6 hours is suggested to rule out myocardial damage. >= 1.50 ng/ml Indicative of Myocardial Injury. 6 This respiratory PCR panel d etects Influenza A H1, H3 and 2009 H1 viruses, Influenza B virus, Resp iratory Syncytial Virus, Human metapneumovirus, Parainfluenza virus 1, 2, 3 and 4, Adenovirus, Rhinovirus/Enterovirus, Coronavirus HKU1, NL63, OC43, 229E and SARS-CoV-2 (COVID 19), Bordetella pertussis, Bordetella parapertussis, Mycoplasma pneumoniae and Chlamydia pneumoniae. NEGATIVE by MULTIPLEXED NUCLEIC ACID PCR SARS-CoV-2 (COVID 19) NEGATIVE - SARS-CoV-2 (COVID19) 7 Units are mL/min/1.73 m2 Chronic Kidney Disease Staging per NKF: Stage I & II GFR >=60 Normal to Mildly Decreased Stage III GFR 30-59 Moderately Decreased Stage IV GFR 15-29 Severely Decreased Stage V GFR <15 Very Little GFR Left ESRD GFR <15 on REGISTERED NURSE SUPERVISOR 8 This respiratory PCR panel d etects Influenza A H1, H3 and 2009 H1 viruses, Influenza B virus, Resp iratory Syncytial Virus, Human metapneumovirus, Parainfluenza virus 1, 2, 3 and 4, Adenovirus, Rhinovirus/Enterovirus, Coronavirus HKU1, NL63, OC43, 229E and SARS-CoV-2 (COVID 19), Bordetella pertussis, Bordetella parapertussis, Mycoplasma pneumoniae and Chlamydia pneumoniae. NEGATIVE by MULTIPLEXED NUCLEIC ACID PCR SARS-CoV-2 (COVID 19) NEGATIVE - SARS-CoV-2 (COVID19) 9 Y/N query for Sepsis Lactate Rule: Y 10 No growth after 72 hours . A ll specimens observed for 5 days. Results final at that time. No growth after 48 hours . All specimens observed for 5 days. Results final at that time. No growth after 24 hours . All specimens observed for 5 days. Results final at that time. NO GROWTH AFTER 5 DAYS 11 Units are mL/min/1.73 m2 Chronic Kidney Disease Staging per NKF: Stage I & II GFR >=60 Normal to Mildly Decreased Stage III GFR 30-59 Moderately Decreased Stage IV GFR 15-29 Severely Decreased Stage V GFR <15 Very Little GFR Left ESRD GFR <15 on REGISTERED NURSE SUPERVISOR 12 DIAGNOSIS CRITERIA MMB ng/ml Relative Index (RI) NON-AMI < or = 5 N/A OBRIEN ZONE > 5 < or = 4 AMI > 5 > 4 13 Troponin I Reference Interva l for NXE LOCI: 99th Percentile= 0.00-0.045 ng/ml Risk Stratification: <= 0.10 ng/ml Decreased Risk for Adverse Clinical Events. 0.10-1.50 ng/ml Increased Risk for Adv erse Clinical Events. Evaluation of additional criterion and/or repeat testing in 2-6 hours is suggested to rule out myocardial damage. >= 1.50 ng/ml Indicative of Myocardial Injury. 14 Y/N query for Sepsis Lactate Rule: Y 15 No growth after 72 hours . A ll specimens observed for 5 days. Results final at that time. No growth after 48 hours . All specimens observed for 5 days. Results final at that time. No growth after 24 hours . All specimens observed for 5 days. Results final at that time. NO GROWTH AFTER 5 DAYS 16 ALL PRESUMPTIVE POSITIVE FINDINGS ARE UNCONFIRMED THRESHOLD [...] CLOSELY RELATED COMPOUNDS PLEASE CALL THE LAB. 17 Units are mL/min/1.73 m2 Chronic Kidney Disease Staging per NKF: Stage I & II GFR >=60 Normal to Mildly Decreased Stage III GFR 30-59 Moderately Decreased Stage IV GFR 15-29 Severely Decreased Stage V GFR <15 Very Little GFR Left ESRD GFR <15 on REGISTERED NURSE SUPERVISOR 18 NORMAL RANGES ARE FOR ADULT FEMALES (OVER 15 YRS) AND MALES (OVER 19 YRS). FOR PEDIATRIC RANGES PLE ASE CONSULT LITERATURE. 19 NOTE: CBC VERIFIED 20 100-125 mg/dL PRE-DIABET ES/FASTING >126 mg/dL DIABETES/FASTING 21 CHRONIC KIDNEY DISEASE STAGI NG PER NKF STAGE I & II GFR >= 60 NORMAL TO MILDLY DECREASED STAGE III GFR 30-59 MODERATELY DECREASED STAGE IV GFR 15-29 SEVERELY DECREASED STAGE V GFR <15 VERY LITTLE GFR LEFT ESRD GFR <15 ON REGISTERED NURSE SUPERVISOR 22 Lab Result Notes: Pre-Diabetes 5.7 - 6.4 % Diabetes = or > 6.5% 23 Units are mL/min/1.73 m2 Chronic Kidney Disease Staging per NKF: Stage I & II GFR >=60 Normal to Mildly Decreased Stage III GFR 30-59 Moderately Decreased Stage IV GFR 15-29 Severely Decreased Stage V GFR <15 Very Little GFR Left ESRD GFR <15 on REGISTERED NURSE SUPERVISOR 24 Units are mL/min/1.73 m2 Chronic Kidney Disease Staging per NKF: Stage I & II GFR >=60 Normal to Mildly Decreased Stage III GFR 30-59 Moderately Decreased Stage IV GFR 15-29 Severely Decreased Stage V GFR <15 Very Little GFR Left ESRD GFR <15 on REGISTERED NURSE SUPERVISOR Procedures Date Code Description Status 05/04/2021 34054 Office/Outpatient Established Mo d MDM 30-39 Min Completed 01/26/2021 83278 Office/Outpatient Established Mo d MDM 30-39 Min Completed 09/14/2020 [id number] Diabetic Retinal Eye Exam Comple [facility] 10/05/2017 [id number] Diabetic Retinal Eye Exam Comple [facility] 09/26/2017 [id number] Diabetic Retinal Eye Exam Comple [facility] Medical Devices Description No Information Available Encounters Type Date Location Provider Dx Diagnosis Office Visit 05/04/2021 2:00p [place] [facility] M[facility] 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 01/26/2021 C7B.8 Other secondary neuroendocrine t umors Lino Garcia M.D. 01/26/2021 I10 Essential (primary) hypertension Lino Garcia M.D. 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 01/26/2021 F41.9 Anxiety disorder, unspecified Danial Garcia M.D. 01/26/2021 K21.9 Gastro-esophageal reflux disease without esophagitis Lino Garcia M.D. 01/26/2021 H54.62 Unqualified visual loss, left ey e, normal vision right eye Lino Garcia M.D. 01/26/2021 E87.1 Hypo-osmolality and hyponatremia Lino Garcia M.D. 01/26/2021 R73.09 Other abnormal glucose Lino Garcia M.D. Plan of Treatment Future Appointment(s):* 07/29/2021 3:00 pm - Lino Garcia M.D. at [facility] 05/04/2021 - Lino Garcia M.D.* C7B.8 [...] The patient and his are going to [place] on Tuesday and will discuss alternatives.2. Hypopituitarism: [...] Patient will continue to follow up at [facility].7. Hypo-osmolality and hyponatremia: Patient had significantly [...]
--- OUTSIDE RECORDS SUMMARY | 2021-08-02 08:29 | CCD | Continuity of Care Document ---
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 Social History Type Date Description Comments Sex Unknown Cigarette Use denies cigarette use Tobacco Use Start: Unknown Patient has never smoked Smoking Status Reviewed: 04/09/21 Patient has never smoked Allergies, Adverse Reactions, Alerts Description No Information Available Medications Active Medications SIG Qnty Indications Ordering Provide r Date Bactrim DS 800-160mg Tablets 1 daily D49.7 Pam Cole MD 04/09/2021 Potassium Chloride ER 20Meq Tablet s ER 1 po daily 90tabs Pam Cole MD 03/22/2021 Hydrocortisone 10mg Tablets Take 4 Tablets By Mouth Every Morning And 2 Tablets By Mouth Every Afternoon Maximum Daily Dose = 6 180tabs Pam Cole MD 11/25/2020 Decadron 4mg Tablets 1 by mouth daily 30tabs Pam Cole MD 10/28/2020 Levothyroxine Sodium 100mcg Tablet s Take One Tablet By Mouth Every Day 30tabs D49.7 Oren Dale 02/08/2020 E03.9 Liothyronine Sodium 25mcg Tablets take one tablet by mouth every morning 90tabs E03.9 Oren Dale 06/02/2017 Androgel 40.5mg/2.5GM (1.62%) Gel apply 4 pumps to arm area daily.-mdd 81gm disp 2 bottles= 30 days, code f= dereck def 150gm E23.0 Pam Cole MD 08/13/2014 Decadron 4MG/ML Inject 1 ML For Emergencies If Unable To Tolerate PO Meds 1MLVial Pam Cole MD 06/02/2005 Syringe-Insulin 1cc W/Ultrafine Needle Use as Directed 1units Pam Cole MD 06/02/2005 Quetiapine Fumarate 25mg Tablets 1/2 po qam and 1 po qhs Unknown Desmopressin Acetate 0.1mg Tablets Take One Tablet By Mouth Twice A Day 180tabs Pam Cole MD Lyrica 200mg Capsules 1 tablet twice daily Unknown Alprazolam 1mg Tablets 1 po t id prn Unknown L-Methylfolate 15mg Tablets 1 p.o. qd Unknown Bupropion HCL ER (SR) 150mg Tablets ER 12HR 1 po bid Unknown Pristiq 100mg Tablets ER 24HR 1 by mouth every day Unknown Cyanocobalamin 100mcg qd Unknown Dhea 50mg Capsules 2 po qd Unknown Vitamin D 5000Unit Tablets qd Unknown Krill Oil 500mg Capsules 1 po qd 30caps Unknown Klonopin 1mg Tablets 1 po bid Unknown Buspirone HCL 30mg Tablets 1 po qd Unknown omeprazole 20mg Capsules DR 1 po qd Unknown Magnesium 400mg Tablets 1 po qd Unknown Aspir-[address] qd Unknown Atorvastatin Calcium 20mg Tablets 1 po qd Unknown Lisinopril/Hydrochlorothiazide 10-12.5mg Tablets 1 po q am Unknown Immunizations Description No Information Available Vital Signs Date Vital Result Comment 04/09/2021 2:18pm BP Systolic 136 mmHg BP Diastolic 80 mmHg Heart Rate 112 /min Body Temperature 96.4 F Height 64.5 inches 5'4.50" Weight 183.25 lb BMI (Body Mass Index) 31.0 kg/m2 O2 % BldC Oximetry 98 % 05/13/2020 4:00pm BP Systolic 124 mmHg BP Diastolic 72 mmHg Heart Rate 106 /min Height 64.5 inches 5'4.50" Weight 201.50 lb BMI (Body Mass Index) 34.0 kg/m2 O2 % BldC Oximetry 94 % Results Test Acquired Date Facility Test Result H/L Range Note Basic Metabolic Profile 06/29/2021 [facility] [address] [place] [address] [phone] - Glucose, Fasting 162 mg/dL High 70-100 Blood Urea Nitrogen 10 mg/dL Normal 7-18 Creatinine For GFR 1.06 mg/dL Normal 0.70-1.30 Glomerular Filtration Rate > 60.0 Normal >42 1 Sodium Level 142 mEq/L Normal 136-145 Potassium Serum 4.2 mEq/L Normal 3.5-5.1 Chloride Level 108 mEq/L High 98-107 Carbon Dioxide Level 28 mEq/L Normal 21-32 Anion Gap 6 mEq/L Low 8-16 Calcium Level 8.6 mg/dL Low 8.8-10.2 Comprehensive Metabolic Profil 06/02/2021 [facility] [address] [place] [address] [phone])- - Glucose, Fasting 149 mg/dL High 70-100 Blood [...] Ratio 1.1 Normal Laboratory test finding 06/02/[address] [address] [phone] - Magnesium Level 2.0 mg/dL Normal 1.8-2.4 Free T4 0.79 ng/dL Normal 0.76-1.46 CBC With Differential 06/02/[address] [address] [phone])- - White Blood Count 11.4 10 High 4.0-10.0 [...] 36.0-66.0 Lymph % 16.8 % Low 24.0-44.0 Hart % 5.7 % Normal 2.0-8.0 Eos % 0.1 % Normal 0.0-3.0 Baso % 1.0 % Normal 0.0-1.0 Immature Granulocyte % 4.5 % High 0-3.0 Nucleated Red Blood Cell % 0.2 % High 0-0 Neutrophils # 8.2 10 Normal 1.5-8.5 Lymph # 1.9 10 Normal 1.5-5.0 Hart # 0.7 10 Normal 0.0-0.8 Eos # 0.0 10 Normal 0.0-0.5 Baso # 0.1 10 Normal 0.0-0.2 Laboratory test finding 04/13/[address] [address] [phone])- - Total 25(Oh) Vitamin D 25.6 NG/ML Low 30.0-100.0 Basic Metabolic Profile 04/13/2021 [facility] [address] [place] [address] [phone])- - Glucose, Fasting 209 mg/dL High 70-100 Blood Urea Nitrogen 16 mg/dL Normal 7-18 Creatinine For GFR 0.67 mg/dL Low 0.70-1.30 Glomerular Filtration Rate > 60.0 Normal >49 3 Sodium Level 136 mEq/L Normal 136-145 Potassium Serum 4.5 mEq/L Normal 3.5-5.1 Chloride Level 102 mEq/L Normal 98-107 Carbon Dioxide Level 25 mEq/L Normal 21-32 Anion Gap 9 mEq/L Normal 8-16 Calcium Level 8.0 mg/dL Low 8.8-10.2 Basic Metabolic Profile 03/03/2021 [facility] [id number] [place] [address] (315)- - Glucose, Fasting 150 mg/dL High 70-100 Blood Urea Nitrogen 9 mg/dL Normal 7-18 Creatinine For GFR 0.85 mg/dL Normal 0.70-1.30 Glomerular Filtration Rate > 60.0 Normal >49 4 Sodium Level 138 mEq/L Normal 136-145 Potassium Serum 3.5 mEq/L Normal 3.5-5.1 Chloride Level 104 mEq/L Normal 98-107 Carbon Dioxide Level 27 mEq/L Normal 21-32 Anion Gap 7 mEq/L Low 8-16 Calcium Level 7.9 mg/dL Low 8.8-10.2 Laboratory test finding 03/03/[address] [address] [phone])- - Magnesium Level 1.7 mg/dL Low 1.8-2.4 1 Units are mL/min/1.73 m2 Chronic Kidney Disease Staging per NKF: Stage I & II GFR >=60 Normal to Mildly Decreased Stage III GFR 30-59 Moderately Decreased Stage IV GFR 15-29 Severely Decreased Stage V GFR <15 Very Little GFR Left ESRD GFR <15 on BOAT WASHER 2 Units are mL/min/1.73 m2 Chronic Kidney Disease Staging per NKF: Stage I & II GFR >=60 Normal to Mildly Decreased Stage III GFR 30-59 Moderately Decreased Stage IV GFR 15-29 Severely Decreased Stage V GFR <15 Very Little GFR Left ESRD GFR <15 on BOAT WASHER 3 Units are mL/min/1.73 m2 Chronic Kidney Disease Staging per NKF: Stage I & II GFR >=60 Normal to Mildly Decreased Stage III GFR 30-59 Moderately Decreased Stage IV GFR 15-29 Severely Decreased Stage V GFR <15 Very Little GFR Left ESRD GFR <15 on BOAT WASHER 4 Units are mL/min/1.73 m2 Chronic Kidney Disease Staging per NKF: Stage I & II GFR >=60 Normal to Mildly Decreased Stage III GFR 30-59 Moderately Decreased Stage IV GFR 15-29 Severely Decreased Stage V GFR <15 Very Little GFR Left ESRD GFR <15 on BOAT WASHER Procedures Date Code Description Status 04/09/2021 81658 Office/Outpatient Established Mo d MDM 30-39 Min Completed Medical Devices Description No Information Available Encounters Type Date Location Provider Dx Diagnosis Office Visit 04/09/2021 2:15p DR. 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 Completed Temadar which is used for brain cancers. Specifically astrocytoma in glioblastoma.His first diagnosis was 2003, first recurrence 2011, second recurrence 2014 and third recurrence 8788-5099.He completed gamma knife radiation. .Current medication: predinsone- varying dosesDecadron 0.75 mg daily.--> changed to prednisone 20 po bid liothyronine 25 g daily AndroGel - 2 pumps every other day, levothyroxine 100 g dailyDDAVP 0.1 BID09/16/2020: Testosterone = 522, free T4 = 0.9 BUN = 21, creatinine = 1.2Hemoglobin and hematocrit = 17/56He is drinking 2, 16 ounce bottles of Gatorade and 20-40 ounces of water a day.03/2021:getting diarrhea from his immunotherapy: nivolumab, ipilimunnabgiven infliximab to relieve bowel inflamation.had to be seen in [place]- readmitted for 2 weeks, dehydration and low sodium 04/02/21 labs: gxspok=089wbscs=1.6 calcium=7.5 * Follow up:* july * E03.9 Hypothyroidism, unspecified* Comments:* Current medications: Synthroid 100 g daily. Cytomel 25 g daily. Added to regimen May 2017 05/15/19 FreeT4 = 0.89 03/2020, FreeT4 = 1.0. September labs are at goal. * E29.1 Testicular hypofunction* Comments:* Current dose: 2 pumps daily.Total utzboivtmstn=734 09/2020 Patient wishes to continue. It definitely helped his mood. * E23.2 Diabetes insipidus* Comments:* He is taking DDAVP bid * E83.51 Hypocalcemia* Comments:* low calciumtaking Vit d and calcium supplement will recheck Vit D Perhaps not absorbing calcium. * All * Comments:* Patient had an elevated hemoglobin and hematocrit, 17/55. He has been taking iron daily. At this time I recommend to the that she discontinue for at least 2 weeks and then restart perhaps just 1 or 2 days a week. Functional Status Description No Information Available Mental Status Description No Information Available Referrals Description No Information Available
--- OUTSIDE RECORDS SUMMARY | 2021-08-02 08:29 | CCD | Continuity of Care Document ---
Author Author Ross GARCIA M.D. Organization Unknown Address [address] [place] [address] Phone [phone] Care Team Providers Care Lead Quality Control Technician Name Role Phone Lino Garcia MD AUTM [phone] Wally Newsome DO AUTM [phone] Pam Veronica MD AUTM [phone] Rickey Valdez MD AUTM [facility] AUTM [phone] Problems Active Problems Provider Date Pituitary adenoma [...] Capsules 1 by mouth twice a day ([facility] wants a total of 300mg bid) 60bernardino [...] Tablets 2 tabs by mouth daily (per [facility]) Lino Garcia M.D. 021 - 07/29/2021 Immunizations CPT Code Status Date Vaccine Lot # [id number] Given 07/02/2014 Influenza Virus Vaccine 13247 Given 07/25/2013 Influenza Virus Vaccine 23320 Given 06/28/2013 Adacel- Tetanus Diphtheria P ertussis 32259 Given 08/29/2012 Influenza Virus Vaccine 09196 Given 07/17/2010 Influenza Virus Vaccine 47859 Given 11/18/2008 Pneumovax 23 74546 Given 11/18/1997 Adacel- Tetanus Diphtheria P ertussis 36028 Refused 08/28/2018 Influenza Virus Vaccine, Quadrivalent ([id number]), Derived From Cell 22795 Refused 12/19/2012 Zoster Vaccine Vital Signs Date [...] Test Result H/L Range Note CMP 06/16/2021 [facility] [address] [place] [address] [phone] Glucose, Fasting 116 mg/dL High 70-100 Blood [...] Ratio 1.0 Normal Laboratory test finding 06/16/2021 [facility] [address] [place] [address] [phone] Magnesium Level 2.3 mg/dL Normal 1.8-2.4 Free T4 0.84 ng/dL Normal 0.76-1.46 CBC W/Auto Differential 06/16/2021 [facility] [address] [place] [address] [phone] White Blood Count 10.8 10 High 4.0-10.0 [...] 36.0-66.0 Lymph % 17.5 % Low 24.0-44.0 [place] % 5.7 % Normal 2.0-8.0 Eos % 0.1 % Normal 0.0-3.0 Baso % 1.3 % High 0.0-1.0 Immature Granulocyte % 4.8 % High 0-3.0 Nucleated Red Blood Cell % 0.0 % Normal 0-0 Neutrophils # 7.6 10 Normal 1.5-8.5 Lymph # 1.9 10 Normal 1.5-5.0 [place] # 0.6 10 Normal 0.0-0.8 Eos # 0.0 10 Normal 0.0-0.5 Baso # 0.1 10 Normal 0.0-0.2 CBC W/Auto Differential 06/02/2021 [place] [address] [phone] White Blood Count 11.4 10 High 4.0-10.0 [...] 36.0-66.0 Lymph % 16.8 % Low 24.0-44.0 [place] % 5.7 % Normal 2.0-8.0 Eos % 0.1 % Normal 0.0-3.0 Baso % 1.0 % Normal 0.0-1.0 Immature Granulocyte % 4.5 % High 0-3.0 Nucleated Red Blood Cell % 0.2 % High 0-0 Neutrophils # 8.2 10 Normal 1.5-8.5 Lymph # 1.9 10 Normal 1.5-5.0 [place] # 0.7 10 Normal 0.0-0.8 Eos # 0.0 10 Normal 0.0-0.5 Baso # 0.1 10 Normal 0.0-0.2 CMP 06/02/2021 [facility] [address] [place] [address] [phone] Glucose, Fasting 149 mg/dL High 70-100 Blood [...] Ratio 1.1 Normal Laboratory test finding 06/02/[address] [address] [phone] Magnesium Level 2.0 mg/dL Normal 1.8-2.4 Free T4 0.79 ng/dL Normal 0.76-1.46 CBC With Differential 05/19/[address] [address] [phone] White Blood Count 11.6 10 High 4.0-10.0 [...] 36.0-66.0 Lymph % 13.2 % Low 24.0-44.0 [place] % 4.0 % Normal 2.0-8.0 Eos % 0.0 % Normal 0.0-3.0 Baso % 1.2 % High 0.0-1.0 Immature Granulocyte % 5.0 % High 0-3.0 Nucleated Red Blood Cell % 0.2 % High 0-0 Neutrophils # 8.9 10 High 1.5-8.5 Lymph # 1.5 10 Normal 1.5-5.0 [place] # 0.5 10 Normal 0.0-0.8 Eos # 0.0 10 Normal 0.0-0.5 Baso # 0.1 10 Normal 0.0-0.2 Comprehensive Metabolic Profil 05/19/[address] [address] [phone] Glucose, Fasting 257 mg/dL High 70-100 Blood [...] Ratio 1.1 Normal Laboratory test finding 05/19/[address] [address] [phone] Magnesium Level 2.2 mg/dL Normal 1.8-2.4 Free T4 0.73 ng/dL Low 0.76-1.46 Laboratory test finding 03/05/2021 [facility] [address] [place] [address] [phone] Bedside Glucose 160 mg/dL High 80-115 Laboratory test finding 03/05/2021 [address] [place] [address] [phone] Thyroid Stimulating Hormone < 0.005 uIU/ML Low 0.358-3.740 Uric Acid 4.8 mg/dL Normal 3.5-7.2 Magnesium Level 2.0 mg/dL Normal 1.8-2.4 Free T4 0.75 ng/dL Low 0.76-1.46 Basic Metabolic Profile 03/05/2021 [address] [place] [address] [phone] Glucose, Fasting 153 mg/dL High 70-100 Blood [...] 8.3 mg/dL Low 8.8-10.2 Liver Profile 03/05/2021 [facility] [address] [place] [address] [phone] Ast/Sgot 20 U/L Normal 7-37 Alt/SGPT 49 U/L Normal 12-78 Alkaline Phosphatase 88 U/L Normal 45-117 Bilirubin,Total 1.0 mg/dL Normal 0.2-1.0 Bilirubin,Direct 0.4 mg/dL High 0.0-0.2 Total Protein 5.4 GM/DL Low 6.4-8.2 Albumin 2.8 GM/DL Low 3.2-5.2 Albumin/Globulin Ratio 1.1 Normal Cardiac Marker Panel 03/05/2021 [facility] enter [address] [place] [address] [phone] CPK Creatine Phosphokinase 33 U/L Low 39-30 8 CK-MB Value Mass < 1.0 NG/ML Normal <3.6 MB/CK Relative Index 3.03 Normal < Or =4 5 Troponin I < 0.02 NG/ML Normal < 0.10 6 Laboratory test finding 03/05/[address] [id number] [phone] Platelet Estimate NORMAL Normal Normal Differential 03/05/2021 [facility] [address] [place] [phone] Neutrophils 78 % High 28-66 Bands 3 % Normal < 11 Lymphocytes 9 % Low 16-44 Monocytes 8 % High 0-5 Eosinophils 1 % Normal 0-3 Atypical Lymph 1 % Normal 0-5 Anisocytosis 1+ Normal CBC With Differential 03/05/[address] [address] [phone] White Blood Count 10.3 10 High 4.0-10.0 [...] 0.0 % Normal 0-0 Respiratory Panel 03/05/2021 [facility] [address] [place] [address] [phone] Respiratory Panel This respiratory <SEE NOTE> 7 Laboratory test finding 03/04/[address] [address] [phone] Ionized Calcium 4.6 mg/dL Normal 4.5-5.3 Laboratory test finding 03/04/[address] [address] [phone] Magnesium Level 1.7 mg/dL Low 1.8-2.4 Basic Metabolic Profile 03/04/[address] [address] [phone] Glucose, Fasting 120 mg/dL High 70-100 Blood [...] 8.4 mg/dL Low 8.8-10.2 Respiratory Panel 03/01/2021 [facility] n[facility] [address] [place] [address] [phone] Respiratory Panel This respiratory <SEE NOTE> 9 Basic Metabolic Profile 02/23/[address] [address] [phone] Glucose, Fasting 148 mg/dL High 70-100 Blood [...] mg/dL Low 8.8-10.2 Laboratory test finding 02/23/[address] [address] [phone] Lactic Acid Sepsis Protocol 2.4 mmol/L Critical high 0 .4-2.0 11 Ua W/ Reflex To Culture 02/23/[address] [address] [phone] Appearance, Urine RFX CLEAR Normal Clear Color, Urine RFX YELLOW Normal Yellow PH,Urine RFX 6.0 units Normal 5.0-9.0 Specific Mckee Ur Auto RFX 1.020 Normal 1.002-1.035 Protein, [...] /LPF Normal 0-1 Laboratory test finding 02/23/[address] [address] [phone] Osmolality Urine 693 MOSM/KG Normal 50-1400 Creatinine,Random Urine 105.0 mg/dL Normal Sodium,Random Urine 111 mEq/L Normal Drug Eval Toxicology ED Only 02/23/[address] [address] [phone] Amphetamines Level Urine NEGATIVE Normal Negativ e Barbiturates Urine NEGATIVE Normal Negative Benzodiazepines Urine NEGATIVE Normal Negative Cannabinoids Urine NEGATIVE Normal Negative Cocaine Metabolite Urine NEGATIVE Normal Negative Methadone Urine NEGATIVE Normal Negative Opiates Urine NEGATIVE Normal Negative Phencyclidine Urine NEGATIVE Normal Negative 12 Blood Culture 02/23/2021 [facility] [address] [place] [address] [phone] Blood Culture No growth after <SEE NOTE> 13 Laboratory test finding 02/23/[address] 4573603 [phone] Bedside Glucose 216 mg/dL High 80-115 CBC With Differential 02/23/[address] 4025639 [phone] White Blood Count 8.0 10 Normal 4.0-10.0 [...] 36.0-66.0 Lymph % 14.8 % Low 24.0-44.0 [place] % 4.1 % Normal 2.0-8.0 Eos % 0.0 % Normal 0.0-3.0 Baso % 1.5 % High 0.0-1.0 Immature Granulocyte % 5.0 % High 0-3.0 Nucleated Red Blood Cell % 0.4 % High 0-0 Neutrophils # 6.0 10 Normal 1.5-8.5 Lymph # 1.2 10 Low 1.5-5.0 [place] # 0.3 10 Normal 0.0-0.8 Eos # 0.0 10 Normal 0.0-0.5 Baso # 0.1 10 Normal 0.0-0.2 Laboratory test finding 02/23/2021 [facility] [address] [id number] [phone] Ammonia 26 uMOL/L Normal <32 Lactic Acid Sepsis Protocol 3.9 mmol/L Critical high 0.4-2.0 14 Cardiac Marker Panel 02/23/2021 [facility] enter [address] [place] [address] [phone] CPK Creatine Phosphokinase 22 U/L Low 39-30 8 CK-MB Value Mass 1.2 NG/ML Normal <3.6 MB/CK Relative Index 5.45 High < Or =4 15 Troponin I < 0.02 NG/ML Normal < 0.10 16 Liver Profile 02/23/2021 [facility] [address] [place] [address] [phone] Ast/Sgot 18 U/L Normal 7-37 Alt/SGPT 47 U/L Normal 12-78 Alkaline Phosphatase 89 U/L Normal 45-117 Bilirubin,Total 0.6 mg/dL Normal 0.2-1.0 Bilirubin,Direct 0.2 mg/dL Normal 0.0-0.2 Total Protein 5.5 GM/DL Low 6.4-8.2 Albumin 2.8 GM/DL Low 3.2-5.2 Albumin/Globulin Ratio 1.0 Normal Basic Metabolic Profile 02/23/[address] [address] [phone] Glucose, Fasting 223 mg/dL High 70-100 Blood [...] mg/dL Low 8.8-10.2 Laboratory test finding 02/23/[address] [address] [phone] Osmolality Serum 294 MOSM/KG Normal 280-301 Ethyl Alcohol (Ethanol) < 0.003 % Normal 0.000-0.010 Salicylate Level < 1.7 mg/dL Low 5.0-30.0 Acetaminophen Level 2.7 UG/ML Low 10.0-30.0 Thyroid Stimulating Hormone < 0.005 uIU/ML Low 0.358-3.740 Free T4 0.88 ng/dL Normal 0.76-1.46 Magnesium Level 1.8 mg/dL Normal 1.8-2.4 Blood Culture 02/23/2021 [facility] [address] [place] [address] [phone] Blood Culture No growth after <SEE NOTE> 18 1 Units are mL/min/1.73 m2 Chronic Kidney Disease Staging per NKF: Stage I & II GFR >=60 Normal to Mildly Decreased Stage III GFR 30-59 Moderately Decreased Stage IV GFR 15-29 Severely Decreased Stage V GFR <15 Very Little GFR Left ESRD GFR <15 on RECORDIST CHIEF 2 Units are mL/min/1.73 m2 Chronic Kidney Disease Staging per NKF: Stage I & II GFR >=60 Normal to Mildly Decreased Stage III GFR 30-59 Moderately Decreased Stage IV GFR 15-29 Severely Decreased Stage V GFR <15 Very Little GFR Left ESRD GFR <15 on RECORDIST CHIEF 3 Units are mL/min/1.73 m2 Chronic Kidney Disease Staging per NKF: Stage I & II GFR >=60 Normal to Mildly Decreased Stage III GFR 30-59 Moderately Decreased Stage IV GFR 15-29 Severely Decreased Stage V GFR <15 Very Little GFR Left ESRD GFR <15 on RECORDIST CHIEF 4 Units are mL/min/1.73 m2 Chronic Kidney Disease Staging per NKF: Stage I & II GFR >=60 Normal to Mildly Decreased Stage III GFR 30-59 Moderately Decreased Stage IV GFR 15-29 Severely Decreased Stage V GFR <15 Very Little GFR Left ESRD GFR <15 on RECORDIST CHIEF 5 DIAGNOSIS CRITERIA MMB ng/ml Relative Index (RI) NON-AMI < or = 5 N/A OBRIEN ZONE > 5 < or = 4 AMI > 5 > 4 6 Troponin I Reference Interva l for [employer] LOCI: 99th Percentile= 0.00-0.045 ng/ml Risk Stratification: [...] Little GFR Left ESRD GFR <15 on RECORDIST CHIEF 9 This respiratory PCR panel d etects [...] Little GFR Left ESRD GFR <15 on RECORDIST CHIEF 11 Y/N query for Sepsis Lactate Rule: [...] 16 Troponin I Reference Interva l for [employer] LOCI: 99th Percentile= 0.00-0.045 ng/ml Risk Stratification: [...] Little GFR Left ESRD GFR <15 on RECORDIST CHIEF 18 No growth after 72 hours . [...] DAYS Procedures Date Code Description Status 05/04/2021 [id number] Office/Outpatient Established Mo d MDM 30-39 Min Completed 09/14/2020 [id number] Diabetic Retinal Eye Exam [facility] 10/05/2017 [id number] Diabetic Retinal Eye Exam [facility] 09/26/2017 [id number] Diabetic Retinal Eye Exam [facility] Medical Devices Description No Information Available Encounters Type Date Location Provider Dx Diagnosis Office Visit 05/04/2021 2:00p [facility] Lino Garcia M.D. C7B.8 Other [...] 2:30 pm - Lino Garcia M.D. at [facility] 05/04/2021 - Lino Garcia M.D.* [...] The patient and his are going to [place] on Tuesday and will discuss alternatives.2. Hypopituitarism: [...] will continue to follow up at [facility].7. Hypo-osmolality and hyponatremia: Patient had significantly low [...]
--- OUTSIDE RECORDS SUMMARY | 2021-08-02 08:30 | CCD | Continuity of Care Document ---
Author Author Ross GARCIA M.D. Organization Unknown Address [address] [place] [address] Phone [phone] Care Team Providers Care Testing Director Name Role Phone Lino Garcia MD AUTM [phone] Wally Newsome DO AUTM [phone] Pam Veronica MD AUTM [phone] Rickey Valdez MD AUTM [phone] [facility] AUTM [phone] Problems Active Problems Provider Date Pituitary adenoma [...] smoked Allergies, Adverse Reactions, Alerts Active Allergies Reaction Severity Comments Date Amoxicillin rash 04/22/2015 Medications Active Medications SIG Qnty Indications Ordering Provide r Date Oyster Shell Calcium 500mg Tablets 1 by mouth twice a day 180tabs Lino Garcia M.D. 1 Prednisone 20mg Tablets 2 tabs by mouth daily (per [facility]) Lino Garcia M.D. 021 Potassium Chloride ER 20Meq Tablet s ER take one tablet by mouth three times a day 90veena Garcia M.D. 03/20/2021 Lyrica 200mg Capsules 1 by mouth twice a day ([facility] wants a total of 300mg bid) pillo Garcia M.D. 01/26/2021 Magnesium Oxide 500mg Tablets [...] 1 by mouth once a day Wally Newsome DO Clonazepam 1mg Tablets 1 by m outh bid Wally Newsome DO Desvenlafaxine ER 100mg Tablets ER 24HR 1 [...] wed, frid, 2 pumps the other days Pam Mahoney MD L-Methylfolate 15mg Tablets 1 po qd Wally Newsome,DO Desmopressin Acetate 0.1mg Tablets take one tablet po in the am and one tablet po in the pm Unknown Amlodipine Besylate 5mg Tablets 1 by mouth every day 90tacristopher Garcia M.D. Bactrim 400-80mg Tablets 3x/wk (Px for sinuses - Rx [facility]) Unknown Lyrica 100mg Capsules take 3 capsule twice a day 180capbalaji Garcia M.D. History Medications Lyrica 200mg Capsules 1 by mouth twice a day 60bernardino Garcia M.D. 01/05/2021 - 01/26/2021 Immunizations CPT Code Status Date Vaccine Lot # 61336 Given 07/02/2014 Influenza Virus Vaccine 66593 Given 07/25/2013 Influenza Virus Vaccine 22236 Given 06/28/2013 Adacel- Tetanus Diphtheria P ertussis (Age64 & Under) 48177 Given 08/29/2012 Influenza Virus Vaccine 25979 Given 07/17/2010 Influenza Virus Vaccine 05122 Given 11/18/2008 Pneumovax 23 60985 Given 11/18/1997 Adacel- Tetanus Diphtheria P ertussis (Age64 & Under) 15108 Refused 08/28/2018 Influenza Virus Vaccine, Quadrivalent ([id number]), Derived From Cell [id number] Refused 12/19/2012 Zoster Vaccine Vital Signs Date [...] Date Facility Test Result H/L Range Note Comprehensive Metabolic Profil 05/19/[address] [address] [phone] Glucose, Fasting 257 mg/dL High 70-100 Blood [...] Ratio 1.1 Normal Laboratory test finding 05/19/[address] [address] [phone] Magnesium Level 2.2 mg/dL Normal 1.8-2.4 Free T4 0.73 ng/dL Low 0.76-1.46 CBC With Differential 05/19/[address] [address] [phone] White Blood Count 11.6 10 High 4.0-10.0 [...] 36.0-66.0 Lymph % 13.2 % Low 24.0-44.0 [place] % 4.0 % Normal 2.0-8.0 Eos % 0.0 % Normal 0.0-3.0 Baso % 1.2 % High 0.0-1.0 Immature Granulocyte % 5.0 % High 0-3.0 Nucleated Red Blood Cell % 0.2 % High 0-0 Neutrophils # 8.9 10 High 1.5-8.5 Lymph # 1.5 10 Normal 1.5-5.0 [place] # 0.5 10 Normal 0.0-0.8 Eos # 0.0 10 Normal 0.0-0.5 Baso # 0.1 10 Normal 0.0-0.2 Laboratory test finding 03/05/[address] [address] [phone] Thyroid Stimulating Hormone < 0.005 uIU/ML Low 0.358-3.740 Uric Acid 4.8 mg/dL Normal 3.5-7.2 Magnesium Level 2.0 mg/dL Normal 1.8-2.4 Free T4 0.75 ng/dL Low 0.76-1.46 Basic Metabolic Profile 03/05/[address] [address] [phone] Glucose, Fasting 153 mg/dL High 70-100 Blood Urea Nitrogen 16 mg/dL Significant change down 7-18 Creatinine For GFR 1.11 mg/dL Normal 0.70-1.30 Glomerular Filtration Rate > 60.0 Normal >49 2 Sodium Level 126 mEq/L 136-145 Potassium Serum 4.5 mEq/L Normal 3.5-5.1 Chloride Level 94 mEq/L Low 98-107 Carbon Dioxide Level 26 mEq/L Normal 21-32 Anion Gap 6 mEq/L Low 8-16 Calcium Level 8.3 mg/dL Low 8.8-10.2 Liver Profile 03/05/[address] [address] [phone] Ast/Sgot 20 U/L Normal 7-37 Alt/SGPT 49 U/L Normal 12-78 Alkaline Phosphatase 88 U/L Normal 45-117 Bilirubin,Total 1.0 mg/dL Normal 0.2-1.0 Bilirubin,Direct 0.4 mg/dL High 0.0-0.2 Total Protein 5.4 GM/DL Low 6.4-8.2 Albumin 2.8 GM/DL Low 3.2-5.2 Albumin/Globulin Ratio 1.1 Normal Cardiac Marker Panel 03/05/[address] [address] [phone] CPK Creatine Phosphokinase 33 U/L Low 39-30 8 CK-MB Value Mass < 1.0 NG/ML Normal <3.6 MB/CK Relative Index 3.03 Normal < Or =4 3 Troponin I < 0.02 NG/ML Normal < 0.10 4 Laboratory test finding 03/05/[address] [address] [phone] Platelet Estimate NORMAL Normal Normal Differential 03/05/2021 [facility] nter [address] [place] [address] [phone] Neutrophils 78 % High 28-66 Bands 3 % Normal < 11 Lymphocytes 9 % Low 16-44 Monocytes 8 % High 0-5 Eosinophils 1 % Normal 0-3 Atypical Lymph 1 % Normal 0-5 Anisocytosis 1+ Normal CBC With Differential 03/05/[address] [address] [phone] White Blood Count 10.3 10 High 4.0-10.0 [...] % Normal 0-0 Laboratory test finding 03/05/[address] [address] [phone] Bedside Glucose 160 mg/dL High 80-115 Respiratory Panel 03/05/2021 [facility] nter [address] [place] [address] [phone] Respiratory Panel This respiratory <SEE NOTE> 5 Laboratory test finding 03/04/[address] [address] [phone] Ionized Calcium 4.6 mg/dL Normal 4.5-5.3 Basic Metabolic Profile 03/04/[address] [address] [phone] Glucose, Fasting 120 mg/dL High 70-100 Blood Urea Nitrogen 9 mg/dL Normal 7-18 Creatinine For GFR 0.83 mg/dL Normal 0.70-1.30 Glomerular Filtration Rate > 60.0 Normal >49 6 Sodium Level 135 mEq/L Low 136-145 Potassium Serum 4.3 mEq/L Significant change down 3.5-5.1 Chloride Level 100 mEq/L Normal 98-107 Carbon Dioxide Level 27 mEq/L Normal 21-32 Anion Gap 8 mEq/L Normal 8-16 Calcium Level 8.4 mg/dL Low 8.8-10.2 Laboratory test finding 03/04/[address] [address] [phone] Magnesium Level 1.7 mg/dL Low 1.8-2.4 Respiratory Panel 03/01/2021 [facility] nter [address] [place] [address] [phone] Respiratory Panel This respiratory <SEE NOTE> 7 Laboratory test finding 02/23/[address] [phone] Osmolality Urine 693 MOSM/KG Normal 50-1400 Creatinine,Random Urine 105.0 mg/dL Normal Sodium,Random Urine 111 mEq/L Normal Blood Culture 02/23/2021 [facility] [place]ter [address] [place] [address] [phone] Blood Culture No growth after <SEE NOTE> 8 Laboratory test finding 02/23/[address] [address] [phone] Osmolality Serum 294 MOSM/KG Normal 280-301 Ethyl Alcohol (Ethanol) < 0.003 % Normal 0.000-0.010 Salicylate Level < 1.7 mg/dL Low 5.0-30.0 Acetaminophen Level 2.7 UG/ML Low 10.0-30.0 Thyroid Stimulating Hormone < 0.005 uIU/ML Low 0.358-3.740 Free T4 0.88 ng/dL Normal 0.76-1.46 Magnesium Level 1.8 mg/dL Normal 1.8-2.4 Basic Metabolic Profile 02/23/[address] [address] [phone] Glucose, Fasting 223 mg/dL High 70-100 Blood Urea Nitrogen 16 mg/dL Normal 7-18 Creatinine For GFR 1.00 mg/dL Normal 0.70-1.30 Glomerular Filtration Rate > 60.0 Normal >49 9 Sodium Level 140 mEq/L Normal 136-145 Potassium Serum 3.0 mEq/L Low 3.5-5.1 Chloride Level 104 mEq/L Normal 98-107 Carbon Dioxide Level 27 mEq/L Normal 21-32 Anion Gap 9 mEq/L Normal 8-16 Calcium Level 8.5 mg/dL Low 8.8-10.2 Liver Profile 02/23/[address] [address] [phone] Ast/Sgot 18 U/L Normal 7-37 Alt/SGPT 47 U/L Normal 12-78 Alkaline Phosphatase 89 U/L Normal 45-117 Bilirubin,Total 0.6 mg/dL Normal 0.2-1.0 Bilirubin,Direct 0.2 mg/dL Normal 0.0-0.2 Total Protein 5.5 GM/DL Low 6.4-8.2 Albumin 2.8 GM/DL Low 3.2-5.2 Albumin/Globulin Ratio 1.0 Normal Cardiac Marker Panel 02/23/2021 [facility] enter [address] [place] [address] [phone] CPK Creatine Phosphokinase 22 U/L Low 39-30 8 CK-MB Value Mass 1.2 NG/ML Normal <3.6 MB/CK Relative Index 5.45 High < Or =4 10 Troponin I < 0.02 NG/ML Normal < 0.10 11 Laboratory test finding 02/23/2021 [facility] [address] [place] [address] [phone] Ammonia 26 uMOL/L Normal <32 Lactic Acid Sepsis Protocol 3.9 mmol/L Critical high 0.4-2.0 12 CBC With Differential 02/23/[address] [address] [phone] White Blood Count 8.0 10 Normal 4.0-10.0 [...] 36.0-66.0 Lymph % 14.8 % Low 24.0-44.0 [place] % 4.1 % Normal 2.0-8.0 Eos % 0.0 % Normal 0.0-3.0 Baso % 1.5 % High 0.0-1.0 Immature Granulocyte % 5.0 % High 0-3.0 Nucleated Red Blood Cell % 0.4 % High 0-0 Neutrophils # 6.0 10 Normal 1.5-8.5 Lymph # 1.2 10 Low 1.5-5.0 [place] # 0.3 10 Normal 0.0-0.8 Eos # 0.0 10 Normal 0.0-0.5 Baso # 0.1 10 Normal 0.0-0.2 Laboratory test finding 02/23/2021 [facility] [address] [place] [address] [phone] Bedside Glucose 216 mg/dL High 80-115 Blood Culture 02/23/2021 [facility] nter [address] [place] [address] [phone] Blood Culture No growth after <SEE NOTE> 13 Drug Eval Toxicology ED Only 02/23/[address] [address] [phone] Amphetamines Level Urine NEGATIVE Normal Negativ e Barbiturates Urine NEGATIVE Normal Negative Benzodiazepines Urine NEGATIVE Normal Negative Cannabinoids Urine NEGATIVE Normal Negative Cocaine Metabolite Urine NEGATIVE Normal Negative Methadone Urine NEGATIVE Normal Negative Opiates Urine NEGATIVE Normal Negative Phencyclidine Urine NEGATIVE Normal Negative 14 Ua W/ Reflex To Culture 02/23/[address] [address] [phone] Appearance, Urine RFX CLEAR Normal Clear Color, Urine RFX YELLOW Normal Yellow PH,Urine RFX 6.0 units Normal 5.0-9.0 Specific [place] Ur Auto RFX 1.020 Normal 1.002-1.035 Protein, [...] /LPF Normal 0-1 Laboratory test finding 02/23/[address] [address] [phone] Lactic Acid Sepsis Protocol 2.4 mmol/L Critical high 0 .4-2.0 15 Basic Metabolic Profile 02/23/2021 [place] [id number] [phone] Glucose, Fasting 148 mg/dL High 70-100 Blood Urea Nitrogen 14 mg/dL Normal 7-18 Creatinine For GFR 0.89 mg/dL Normal 0.70-1.30 Glomerular Filtration Rate > 60.0 Normal >49 1 6 Sodium Level 143 mEq/L Normal 136-145 Potassium Serum 3.6 mEq/L Normal 3.5-5.1 Chloride Level 111 mEq/L High 98-107 Carbon Dioxide Level 27 mEq/L Normal 21-32 Anion Gap 5 mEq/L Low 8-16 Calcium Level 7.4 mg/dL Low 8.8-10.2 Laboratory test finding 01/26/2021 [place] [id number] [phone] Testosterone 201 ng/dL Low 241-827 17 Complete Blood Count 01/26/2021 [facility] [facility] [employer] Transactions Attorney: [place] [address] [phone] WBC 13.0 x10*3/UL High 4.1 - 10.9 18 RBC 4.97 x10*6/UL 4.20 - 6.30 Hemoglobin [...] 2.0 - 7.8 Comprehensive Chem Profile 01/26/2021 [facility] [employer] Transactions Attorney: Dr Chon Lam [place], [place] [id number] [phone] Glucose 248 mg/dL High 74 - 99 19 BUN 19 mg/dL High 7 - 18 [...] mL/min >60 GFR >= 60 mL/min >60 20 A1c 01/26/2021 [facility] [employer] Transactions Attorney: Dr Chon Lam [place], [place] [id number] [phone] Hba1c 6.5 % High <5.7 21 Est Avg Glucose 140 mg/dL High 60 - 110 Laboratory test finding 01/26/2021 [facility] [employer] Transactions Attorney: Dr Chon Lam [place], [place] [id number] [phone] T4 Free 0.93 ng/dL 0.76 - 1.46 CMP W/Egfr 01/08/2021 [facility] nter [address] [place], [place] [id number] [phone] Glucose, Fasting 237 mg/dL High 70-100 Blood Urea Nitrogen 16 mg/dL Normal 7-18 Creatinine For GFR 1.11 mg/dL Normal 0.70-1.30 Glomerular Filtration Rate > 60.0 Normal >49 2 2 Sodium Level 141 mEq/L Normal 136-145 Potassium [...] Ratio 1.0 Normal Laboratory test finding 01/08/[address] [id number] [phone] Magnesium Level 2.3 mg/dL Normal 1.8-2.4 Basic Metabolic Profile 01/08/[address] [id number] [phone] Glucose, Fasting 226 mg/dL High 70-100 Blood Urea Nitrogen 15 mg/dL Normal 7-18 Creatinine For GFR 1.09 mg/dL Normal 0.70-1.30 Glomerular Filtration Rate > 60.0 Normal >49 2 3 Sodium Level 139 mEq/L Normal 136-145 Potassium [...] Little GFR Left ESRD GFR <15 on FOLDED CLOTH TAPER 2 Units are mL/min/1.73 m2 Chronic Kidney Disease Staging per NKF: Stage I & II GFR >=60 Normal to Mildly Decreased Stage III GFR 30-59 Moderately Decreased Stage IV GFR 15-29 Severely Decreased Stage V GFR <15 Very Little GFR Left ESRD GFR <15 on FOLDED CLOTH TAPER 3 DIAGNOSIS CRITERIA MMB ng/ml Relative Index (RI) NON-AMI < or = 5 N/A OBRIEN ZONE > 5 < or = 4 AMI > 5 > 4 4 Troponin I Reference Interva l for [employer] [place] LOCI: 99th Percentile= 0.00-0.045 ng/ml Risk Stratification: <= 0.10 ng/ml Decreased Risk for Adverse Clinical Events. 0.10-1.50 ng/ml Increased Risk for Adv erse Clinical Events. Evaluation of additional criterion and/or repeat testing in 2-6 hours is suggested to rule out myocardial damage. >= 1.50 ng/ml Indicative of Myocardial Injury. 5 This respiratory PCR panel d etects Influenza A H1, H3 and 2009 H1 viruses, Influenza B virus, Resp iratory Syncytial Virus, Human metapneumovirus, Parainfluenza virus 1, 2, 3 and 4, Adenovirus, Rhinovirus/Enterovirus, Coronavirus HKU1, NL63, OC43, 229E and SARS-CoV-2 (COVID 19), Bordetella pertussis, Bordetella parapertussis, Mycoplasma pneumoniae and Chlamydia pneumoniae. NEGATIVE by MULTIPLEXED NUCLEIC ACID PCR SARS-CoV-2 (COVID 19) NEGATIVE - SARS-CoV-2 (COVID19) 6 Units are mL/min/1.73 m2 Chronic Kidney Disease Staging per NKF: Stage I & II GFR >=60 Normal to Mildly Decreased Stage III GFR 30-59 Moderately Decreased Stage IV GFR 15-29 Severely Decreased Stage V GFR <15 Very Little GFR Left ESRD GFR <15 on FOLDED CLOTH TAPER 7 This respiratory PCR panel d etects [...] (COVID 19) NEGATIVE - SARS-CoV-2 (COVID19) 8 No growth after 72 hours . A ll specimens observed for 5 days. Results final at that time. No growth after 48 hours . All specimens observed for 5 days. Results final at that time. No growth after 24 hours . All specimens observed for 5 days. Results final at that time. NO GROWTH AFTER 5 DAYS 9 Units are mL/min/1.73 m2 Chronic Kidney Disease Staging per NKF: Stage I & II GFR >=60 Normal to Mildly Decreased Stage III GFR 30-59 Moderately Decreased Stage IV GFR 15-29 Severely Decreased Stage V GFR <15 Very Little GFR Left ESRD GFR <15 on FOLDED CLOTH TAPER 10 DIAGNOSIS CRITERIA MMB ng/ml Relative Index (RI) NON-AMI < or = 5 N/A OBRIEN ZONE > 5 < or = 4 AMI > 5 > 4 11 Troponin I Reference Interva l for [employer] [place] LOCI: 99th Percentile= 0.00-0.045 ng/ml Risk Stratification: <= 0.10 ng/ml Decreased Risk for Adverse Clinical Events. 0.10-1.50 ng/ml Increased Risk for Adv erse Clinical Events. Evaluation of additional criterion and/or repeat testing in 2-6 hours is suggested to rule out myocardial damage. >= 1.50 ng/ml Indicative of Myocardial Injury. 12 Y/N query for Sepsis Lactate Rule: Y 13 No growth after 72 hours . A ll specimens observed for 5 days. Results final at that time. No growth after 48 hours . All specimens observed for 5 days. Results final at that time. No growth after 24 hours . All specimens observed for 5 days. Results final at that time. NO GROWTH AFTER 5 DAYS 14 ALL PRESUMPTIVE POSITIVE FINDINGS ARE UNCONFIRMED THRESHOLD [...] CLOSELY RELATED COMPOUNDS PLEASE CALL THE LAB. 15 Y/N query for Sepsis Lactate Rule: Y 16 Units are mL/min/1.73 m2 Chronic Kidney Disease Staging per NKF: Stage I & II GFR >=60 Normal to Mildly Decreased Stage III GFR 30-59 Moderately Decreased Stage IV GFR 15-29 Severely Decreased Stage V GFR <15 Very Little GFR Left ESRD GFR <15 on FOLDED CLOTH TAPER 17 NORMAL RANGES ARE FOR ADULT FEMALES (OVER 15 YRS) AND MALES (OVER 19 YRS). FOR PEDIATRIC RANGES PLE ASE CONSULT LITERATURE. 18 NOTE: CBC VERIFIED 19 100-125 mg/dL PRE-DIABET ES/FASTING >126 mg/dL DIABETES/FASTING 20 CHRONIC KIDNEY DISEASE STAGI NG PER NKF STAGE I & II GFR >= 60 NORMAL TO MILDLY DECREASED STAGE III GFR 30-59 MODERATELY DECREASED STAGE IV GFR 15-29 SEVERELY DECREASED STAGE V GFR <15 VERY LITTLE GFR LEFT ESRD GFR <15 ON FOLDED CLOTH TAPER 21 Lab Result Notes: Pre-Diabetes 5.7 - 6.4 % Diabetes = or > 6.5% 22 Units are mL/min/1.73 m2 Chronic Kidney Disease Staging per NKF: Stage I & II GFR >=60 Normal to Mildly Decreased Stage III GFR 30-59 Moderately Decreased Stage IV GFR 15-29 Severely Decreased Stage V GFR <15 Very Little GFR Left ESRD GFR <15 on FOLDED CLOTH TAPER 23 Units are mL/min/1.73 m2 Chronic Kidney Disease Staging per NKF: Stage I & II GFR >=60 Normal to Mildly Decreased Stage III GFR 30-59 Moderately Decreased Stage IV GFR 15-29 Severely Decreased Stage V GFR <15 Very Little GFR Left ESRD GFR <15 on FOLDED CLOTH TAPER Procedures Date Code Description Status 05/04/2021 08289 Office/Outpatient Established Mo d MDM 30-39 Min Completed 01/26/2021 85558 Office/Outpatient Established Mo d MDM 30-39 Min Completed 09/14/2020 [id number] Diabetic Retinal Eye Exam [facility] 10/05/2017 [id number] Diabetic Retinal Eye Exam [facility] 09/26/2017 [id number] Diabetic Retinal Eye Exam [facility] Medical Devices Description No Information Available Encounters Type Date Location Provider Dx Diagnosis Office Visit 05/04/2021 2[facility]p [facility] 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 C7B.8 Other secondary neuroendocrine tumors I10 [...] 3:00 pm - Lino Garcia M.D. at [facility] 05/04/2021 - Lino Garcia M.D.* [...] The patient and his are going to [facility] on Tuesday and will discuss alternatives.2. Hypopituitarism: [...] Patient will continue to follow up at [facility].7. Hypo-osmolality and hyponatremia: Patient had significantly low [...]
--- OUTSIDE RECORDS SUMMARY | 2021-08-02 08:30 | CCD | Continuity of Care Document ---
Author Author Ross GARCIA M.D. 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 021 Potassium Chloride ER 20Meq Tablet s ER take one tablet by mouth three times a day 90veena Garcia M.D. 03/20/2021 Lyrica 200mg Capsules 1 by mouth twice a day ([facility] wants a total of 300mg bid) 60bernardino [...] Tablets 3x/wk (Px for sinuses - Rx [facility]) Unknown Lyrica 100mg Capsules take 3 capsule twice a day 180capbalaji Lam MD History Medications Lyrica 200mg Capsules 1 by mouth twice a day 60bernardino Garcia M.D. 01/05/2021 - 01/26/2021 Immunizations CPT Code Status Date Vaccine Lot # [id number] Given 07/02/2014 Influenza Virus Vaccine 22564 Given 07/25/2013 Influenza Virus Vaccine 27269 Given 06/28/2013 Adacel- Tetanus Diphtheria P ertussis (Age64 & Under) 81970 Given 08/29/2012 Influenza Virus Vaccine 73490 Given 07/17/2010 Influenza Virus Vaccine 25927 Given 11/18/2008 Pneumovax 23 70599 Given 11/18/1997 Adacel- Tetanus Diphtheria P ertussis (Age64 & Under) 06183 Refused 08/28/2018 Influenza Virus Vaccine, Quadrivalent ([id number]), Derived From Cell 67295 Refused 12/19/2012 Zoster Vaccine Vital Signs Date [...] Test Result H/L Range Note CMP 06/02/2021 [facility] [address] [place], [place] [id number] [phone] Glucose, Fasting 149 mg/dL High 70-100 Blood [...] Ratio 1.1 Normal Laboratory test finding 06/02/2021 [facility] [address] [place], [place] [id number] [phone] Magnesium Level 2.0 mg/dL Normal 1.8-2.4 Free T4 0.79 ng/dL Normal 0.76-1.46 CBC W/Auto Differential 06/02/2021 [facility] [address] [place] [address] [phone] White Blood Count 11.4 10 High 4.0-10.0 [...] 36.0-66.0 Lymph % 16.8 % Low 24.0-44.0 [place] % 5.7 % Normal 2.0-8.0 Eos % 0.1 % Normal 0.0-3.0 Baso % 1.0 % Normal 0.0-1.0 Immature Granulocyte % 4.5 % High 0-3.0 Nucleated Red Blood Cell % 0.2 % High 0-0 Neutrophils # 8.2 10 Normal 1.5-8.5 Lymph # 1.9 10 Normal 1.5-5.0 [place] # 0.7 10 Normal 0.0-0.8 Eos # 0.0 10 Normal 0.0-0.5 Baso # 0.1 10 Normal 0.0-0.2 CBC With Differential 05/19/[address] [id number] [phone] White Blood Count 11.6 10 High 4.0-10.0 [...] 36.0-66.0 Lymph % 13.2 % Low 24.0-44.0 [place] % 4.0 % Normal 2.0-8.0 Eos % 0.0 % Normal 0.0-3.0 Baso % 1.2 % High 0.0-1.0 Immature Granulocyte % 5.0 % High 0-3.0 Nucleated Red Blood Cell % 0.2 % High 0-0 Neutrophils # 8.9 10 High 1.5-8.5 Lymph # 1.5 10 Normal 1.5-5.0 [place] # 0.5 10 Normal 0.0-0.8 Eos # 0.0 10 Normal 0.0-0.5 Baso # 0.1 10 Normal 0.0-0.2 Comprehensive Metabolic Profil 05/19/[address] [address] [phone] Glucose, Fasting 257 mg/dL High 70-100 Blood [...] Ratio 1.1 Normal Laboratory test finding 05/19/[address] [address] [phone] Magnesium Level 2.2 mg/dL Normal 1.8-2.4 Free T4 0.73 ng/dL Low 0.76-1.46 Basic Metabolic Profile 03/05/[address] [address] [phone] Glucose, Fasting 153 mg/dL High 70-100 Blood [...] mg/dL Low 8.8-10.2 Laboratory test finding 03/05/[address] [address] [phone] Thyroid Stimulating Hormone < 0.005 uIU/ML Low 0.358-3.740 Uric Acid 4.8 mg/dL Normal 3.5-7.2 Magnesium Level 2.0 mg/dL Normal 1.8-2.4 Free T4 0.75 ng/dL Low 0.76-1.46 Liver Profile 03/05/2021 [facility] [address] [place] [address] [phone] Ast/Sgot 20 U/L Normal 7-37 Alt/SGPT 49 U/L Normal 12-78 Alkaline Phosphatase 88 U/L Normal 45-117 Bilirubin,Total 1.0 mg/dL Normal 0.2-1.0 Bilirubin,Direct 0.4 mg/dL High 0.0-0.2 Total Protein 5.4 GM/DL Low 6.4-8.2 Albumin 2.8 GM/DL Low 3.2-5.2 Albumin/Globulin Ratio 1.1 Normal Cardiac Marker Panel 03/05/2021 [facility] [address] [place] [address] [phone] CPK Creatine Phosphokinase 33 U/L Low 39-30 8 CK-MB Value Mass < 1.0 NG/ML Normal <3.6 MB/CK Relative Index 3.03 Normal < Or =4 4 Troponin I < 0.02 NG/ML Normal < 0.10 5 Laboratory test finding 03/05/2021 [facility] [address] [place] [address] [phone] Platelet Estimate NORMAL Normal Normal Differential 03/05/2021 [facility] [address] [place] [address] [phone] Neutrophils 78 % High 28-66 Bands 3 % Normal < 11 Lymphocytes 9 % Low 16-44 Monocytes 8 % High 0-5 Eosinophils 1 % Normal 0-3 Atypical Lymph 1 % Normal 0-5 Anisocytosis 1+ Normal CBC With Differential 03/05/[address] [address] [phone] White Blood Count 10.3 10 High 4.0-10.0 [...] % Normal 0-0 Laboratory test finding 03/05/[address] [address] [phone] Bedside Glucose 160 mg/dL High 80-115 Respiratory Panel 03/05/2021 [facility] [address] [place] [address] [phone] Respiratory Panel This respiratory <SEE NOTE> 6 Laboratory test finding 03/04/[address] [address] [phone] Ionized Calcium 4.6 mg/dL Normal 4.5-5.3 Basic Metabolic Profile 03/04/[address] [address] [phone] Glucose, Fasting 120 mg/dL High 70-100 Blood [...] mg/dL Low 8.8-10.2 Laboratory test finding 03/04/[address] [address] [phone] Magnesium Level 1.7 mg/dL Low 1.8-2.4 Respiratory Panel 03/01/2021 [facility] [address] [place] [address] [phone] Respiratory Panel This respiratory <SEE NOTE> 8 Laboratory test finding 02/23/[address] [address] [phone] Lactic Acid Sepsis Protocol 2.4 mmol/L Critical high 0 .4-2.0 9 Blood Culture 02/23/2021 [facility] [address] [place] [address] [phone] Blood Culture No growth after <SEE NOTE> 10 Laboratory test finding 02/23/[address] [address] [phone] Osmolality Serum 294 MOSM/KG Normal 280-301 Ethyl Alcohol (Ethanol) < 0.003 % Normal 0.000-0.010 Salicylate Level < 1.7 mg/dL Low 5.0-30.0 Acetaminophen Level 2.7 UG/ML Low 10.0-30.0 Thyroid Stimulating Hormone < 0.005 uIU/ML Low 0.358-3.740 Free T4 0.88 ng/dL Normal 0.76-1.46 Magnesium Level 1.8 mg/dL Normal 1.8-2.4 Basic Metabolic Profile 02/23/[address] [address] [phone] Glucose, Fasting 223 mg/dL High 70-100 Blood [...] 8.5 mg/dL Low 8.8-10.2 Liver Profile 02/23/2021 [facility] [address] [place] [address] [phone] Ast/Sgot 18 U/L Normal 7-37 Alt/SGPT 47 U/L Normal 12-78 Alkaline Phosphatase 89 U/L Normal 45-117 Bilirubin,Total 0.6 mg/dL Normal 0.2-1.0 Bilirubin,Direct 0.2 mg/dL Normal 0.0-0.2 Total Protein 5.5 GM/DL Low 6.4-8.2 Albumin 2.8 GM/DL Low 3.2-5.2 Albumin/Globulin Ratio 1.0 Normal Cardiac Marker Panel 02/23/2021 [facility] [address] [place] [address] [phone] CPK Creatine Phosphokinase 22 U/L Low 39-30 8 CK-MB Value Mass 1.2 NG/ML Normal <3.6 MB/CK Relative Index 5.45 High < Or =4 12 Troponin I < 0.02 NG/ML Normal < 0.10 13 Laboratory test finding 02/23/[address] [address] [phone] Ammonia 26 uMOL/L Normal <32 Lactic Acid Sepsis Protocol 3.9 mmol/L Critical high 0.4-2.0 14 CBC With Differential 02/23/[address] [address] [phone] White Blood Count 8.0 10 Normal 4.0-10.0 [...] 36.0-66.0 Lymph % 14.8 % Low 24.0-44.0 [place] % 4.1 % Normal 2.0-8.0 Eos % 0.0 % Normal 0.0-3.0 Baso % 1.5 % High 0.0-1.0 Immature Granulocyte % 5.0 % High 0-3.0 Nucleated Red Blood Cell % 0.4 % High 0-0 Neutrophils # 6.0 10 Normal 1.5-8.5 Lymph # 1.2 10 Low 1.5-5.0 [place] # 0.3 10 Normal 0.0-0.8 Eos # 0.0 10 Normal 0.0-0.5 Baso # 0.1 10 Normal 0.0-0.2 Laboratory test finding 02/23/[address] [address] [phone] Bedside Glucose 216 mg/dL High 80-115 Blood Culture 02/23/2021 [facility] [address] [place] [address] [phone] Blood Culture No growth after <SEE NOTE> 15 Drug Eval Toxicology ED Only 02/23/[address] [address] [phone] Amphetamines Level Urine NEGATIVE Normal Negativ e Barbiturates Urine NEGATIVE Normal Negative Benzodiazepines Urine NEGATIVE Normal Negative Cannabinoids Urine NEGATIVE Normal Negative Cocaine Metabolite Urine NEGATIVE Normal Negative Methadone Urine NEGATIVE Normal Negative Opiates Urine NEGATIVE Normal Negative Phencyclidine Urine NEGATIVE Normal Negative 16 Laboratory test finding 02/23/[address] [address] [phone] Osmolality Urine 693 MOSM/KG Normal 50-1400 Creatinine,Random Urine 105.0 mg/dL Normal Sodium,Random Urine 111 mEq/L Normal Ua W/ Reflex To Culture 02/23/2021 [facility] [address] [place] [address] [phone] Appearance, Urine RFX CLEAR Normal Clear Color, Urine RFX YELLOW Normal Yellow PH,Urine RFX 6.0 units Normal 5.0-9.0 Specific [place] Ur Auto RFX 1.020 Normal 1.002-1.035 Protein, [...] /LPF Normal 0-1 Basic Metabolic Profile 02/23/2021 [facility] [address] [place], [place] 9067490 [phone] Glucose, Fasting 148 mg/dL High 70-100 Blood [...] mg/dL Low 8.8-10.2 Laboratory test finding 01/26/2021 [facility] [address] [place], [place] [address]00593 [phone] Testosterone 201 ng/dL Low 241-827 18 Complete Blood Count 01/26/2021 [facility] [employer] Supervisor: Dr Chon Lam [place], [place] [id number] [phone] WBC 13.0 x10*3/UL High 4.1 - 10.9 [...] 2.0 - 7.8 Comprehensive Chem Profile 01/26/2021 [facility] [employer] Supervisor: [place] [address] [phone] Glucose 248 mg/dL High 74 - 99 [...] >= 60 mL/min >60 21 A1c 01/26/2021 [facility] , [employer] Mill Supervisor: [place] [address] [phone] Hba1c 6.5 % High <5.7 22 Est Avg Glucose 140 mg/dL High 60 - 110 Laboratory test finding 01/26/2021 [facility] [employer] Supervisor: Dr Chon Lam [place], [place] [id number] [phone] T4 Free 0.93 ng/dL 0.76 - 1.46 CMP W/Egfr 01/08/2021 [facility] [address] [place] [address]0008 [phone] Glucose, Fasting 237 mg/dL High 70-100 Blood [...] Ratio 1.0 Normal Laboratory test finding 01/08/[address] [id number] [phone] Magnesium Level 2.3 mg/dL Normal 1.8-2.4 Basic Metabolic Profile 01/08/2021 [facility] [address] [place] [address] [id number] [phone] Glucose, Fasting 226 mg/dL High 70-100 Blood [...] Little GFR Left ESRD GFR <15 on [employer] 2 Units are mL/min/1.73 m2 Chronic Kidney Disease Staging per NKF: Stage I & II GFR >=60 Normal to Mildly Decreased Stage III GFR 30-59 Moderately Decreased Stage IV GFR 15-29 Severely Decreased Stage V GFR <15 Very Little GFR Left ESRD GFR <15 on [employer] 3 Units are mL/min/1.73 m2 Chronic Kidney Disease Staging per NKF: Stage I & II GFR >=60 Normal to Mildly Decreased Stage III GFR 30-59 Moderately Decreased Stage IV GFR 15-29 Severely Decreased Stage V GFR <15 Very Little GFR Left ESRD GFR <15 on [employer] 4 DIAGNOSIS CRITERIA MMB ng/ml Relative Index (RI) NON-AMI < or = 5 N/A OBRIEN ZONE > 5 < or = 4 AMI > 5 > 4 5 Troponin I Reference Interva l for [employer] [place] LOCI: 99th Percentile= 0.00-0.045 ng/ml Risk Stratification: [...] Little GFR Left ESRD GFR <15 on [employer] 8 This respiratory PCR panel d etects [...] Little GFR Left ESRD GFR <15 on [employer] 12 DIAGNOSIS CRITERIA MMB ng/ml Relative Index (RI) NON-AMI < or = 5 N/A OBRIEN ZONE > 5 < or = 4 AMI > 5 > 4 13 Troponin I Reference Interva l for [employer] LOCI: 99th Percentile= 0.00-0.045 ng/ml Risk Stratification: [...] Little GFR Left ESRD GFR <15 on [employer] 18 NORMAL RANGES ARE FOR ADULT FEMALES [...] LITTLE GFR LEFT ESRD GFR <15 ON [employer] 22 Lab Result Notes: Pre-Diabetes 5.7 - 6.4 % Diabetes = or > 6.5% 23 Units are mL/min/1.73 m2 Chronic Kidney Disease Staging per NKF: Stage I & II GFR >=60 Normal to Mildly Decreased Stage III GFR 30-59 Moderately Decreased Stage IV GFR 15-29 Severely Decreased Stage V GFR <15 Very Little GFR Left ESRD GFR <15 on [employer] 24 Units are mL/min/1.73 m2 Chronic Kidney Disease Staging per NKF: Stage I & II GFR >=60 Normal to Mildly Decreased Stage III GFR 30-59 Moderately Decreased Stage IV GFR 15-29 Severely Decreased Stage V GFR <15 Very Little GFR Left ESRD GFR <15 on [employer] Procedures Date Code Description Status 05/04/2021 29523 Office/Outpatient Established Mo d MDM 30-39 Min Completed 01/26/2021 27035 Office/Outpatient Established Mo d MDM 30-39 Min Completed 09/14/2020 [id number] Diabetic Retinal Eye Exam Comple [facility] 10/05/2017 [id number] Diabetic Retinal Eye Exam Comple [facility] 09/26/2017 [id number] Diabetic Retinal Eye Exam Comple [facility] Medical Devices Description No Information Available Encounters Type Date Location Provider Dx Diagnosis Office Visit 05/04/2021 2:00p [facility] 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 C7B.8 Other secondary neuroendocrine [...] 3:00 pm - Lino Garcia M.D. at [facility] 05/04/2021 - Lino Garcia M.D.* [...] The patient and his are going to [place] on Tuesday and will discuss alternatives.2. Hypopituitarism: [...] Patient will continue to follow up at [facility].7. Hypo-osmolality and hyponatremia: Patient had significantly [...]
--- OUTSIDE RECORDS SUMMARY | 2021-08-02 08:30 | CCD | Continuity of Care Document ---
Author Author Ross GARCIA M.D. Organization Unknown Address [address] [place] [address] Phone [phone] Care Team Providers Care Kitchen Mechanic Name Role Phone Lino Garcia MD AUTM [phone] Wally Newsome DO AUTM [phone] Pam Veronica MD AUTM [phone] Rickey Valdez MD AUTM [facility] AUTM [phone] Problems Active Problems Provider Date Pituitary adenoma [...] SIG Qnty Indications Ordering Provide r Date Potassium Chloride ER 20Meq Tablet s ER take one tablet by mouth three times a day 90tabs Lino Garcia M.D. 03/20/2021 Lyrica 200mg Capsules 1 by mouth twice a day ([place] wants a total of 300mg bid) 60caps Lino Garcia, M.D. 01/26/2021 Magnesium Oxide 500mg Tablets po [...] 06/19/2019 Viagra 100mg Tablets as direc konrad 8tacristopher Garcia M.D. 01/02/2018 Ibuprofen 800mg Tablets take one tablet by mouth three times a day-take with food 90tacristopher Garcia M.D. 10/25/2017 Liothyronine Sodium 25mcg Tablets take one tablet by mouth every day with 5-10mcg liothyronine 90veena Garcia M.D. 07/04/2017 Atorvastatin Calcium 20mg Tablets 1 by mouth every day 90veena Garcia M.D. 04/22/2015 Krill Oil Plus 500mg Capsules 1 po qd Lino Garcia M.D. 04/22/2015 Dhea 50mg Capsules take 2 tab s po qd Lino Garcia M.D. 04/22/2015 Vitamin D3 5000Unit Tablets one every day by mouth Lino Garcia M.D. 04/22/2015 Aspirin Adult Low Dose 81mg Tablet s DR 1 by mouth every day Lino Garcia M.D. 04/22/20 15 Bupropion HCL ER (SR) 150mg Tablets ER 12HR 1 by mouth once a day Wally Newsome DO Lyrica 100mg Capsules take 3 capsule b.i.d. miguel angel Garcia M.D. Dexamethasone 4mg Tablets 1 tab daily (changes via [place], now at 5mg) Unknown Bactrim 400-80mg Tablets 3x/wk (Px for sinuses - Rx [place]) Unknown Amlodipine Besylate 5mg Tablets 1 by mouth every day 90tabs Lino Garcia M.D. Desmopressin Acetate 0.1mg Tablets take one tablet po in the am and one tablet po in the pm Unknown L-Methylfolate 15mg Tablets 1 po qd Wally Newsome,DO Androgel 20.25mg/1.25GM (1.62%) Ge l 3 pumps q mon, wed, frid, 2 pumps the other days F Pam lindo MD Buspirone HCL 15mg Tablets 1 by mouth twice a day Wally Newsome,DO Levothyroxine Sodium 100mcg Tablet s 1 by mouth every day Pam Veronica MD Hydrocortisone 10mg Tablets 2 po qam and 1 po qhs Pam Veronica MD Desvenlafaxine ER 100mg Tablets ER 24HR 1 by mouth every day 30tabs Lino Garcia M.D. 00 Clonazepam 1mg Tablets 1 by m outh bid Wally Newsome,DO History Medications Lyrica 200mg Capsules 1 by mouth twice a day 60caps Lino Garcia M.D. 01/05/2021 - 01/26/2021 Immunizations CPT Code Status Date Vaccine Lot # [id number] Given 07/02/2014 Influenza Virus Vaccine [id number] Given 07/25/2013 Influenza Virus Vaccine 69475 Given 06/28/2013 Adacel- Tetanus Diphtheria P ertussis (Age64 & Under) 88334 Given 08/29/2012 Influenza Virus Vaccine 64026 Given 07/17/2010 Influenza Virus Vaccine 92690 Given 11/18/2008 Pneumovax 23 49223 Given 11/18/1997 Adacel- Tetanus Diphtheria P ertussis (Age64 & Under) 36109 Refused 08/28/2018 Influenza Virus Vaccine, Quadrivalent ([id number]), Derived From Cell 54548 Refused 12/19/2012 Zoster Vaccine Vital Signs Date [...] Date Facility Test Result H/L Range Note Laboratory test finding 03/05/2021 [facility] [address] [place] [address] [phone] Bedside Glucose 160 mg/dL High 80-115 CBC With Differential 03/05/[address] [address] [phone] White Blood Count 10.3 10 High 4.0-10.0 [...] Blood Cell % 0.0 % Normal 0-0 Differential 03/05/2021 [facility] nter [address] [place] [address] [phone] Neutrophils 78 % High 28-66 Bands 3 % Normal < 11 Lymphocytes 9 % Low 16-44 Monocytes 8 % High 0-5 Eosinophils 1 % Normal 0-3 Atypical Lymph 1 % Normal 0-5 Anisocytosis 1+ Normal Laboratory test finding 03/05/2021 [facility] [address] [place] [address] [phone] Platelet Estimate NORMAL Normal Normal Cardiac Marker Panel 03/05/2021 [facility] [address] [place] [address] [phone] CPK Creatine Phosphokinase 33 U/L Low 39-30 8 CK-MB Value Mass < 1.0 NG/ML Normal <3.6 MB/CK Relative Index 3.03 Normal < Or =4 1 Troponin I < 0.02 NG/ML Normal < 0.10 2 Liver Profile 03/05/2021 [facility] nter [address] [place] [address] [phone] Ast/Sgot 20 U/L Normal 7-37 Alt/SGPT 49 U/L Normal 12-78 Alkaline Phosphatase 88 U/L Normal 45-117 Bilirubin,Total 1.0 mg/dL Normal 0.2-1.0 Bilirubin,Direct 0.4 mg/dL High 0.0-0.2 Total Protein 5.4 GM/DL Low 6.4-8.2 Albumin 2.8 GM/DL Low 3.2-5.2 Albumin/Globulin Ratio 1.1 Normal Basic Metabolic Profile 03/05/2021 [place] [id number] [phone] Glucose, Fasting 153 mg/dL High 70-100 Blood [...] mg/dL Low 8.8-10.2 Laboratory test finding 03/05/2021 [place] [id number] [phone] Thyroid Stimulating Hormone < 0.005 uIU/ML Low 0.358-3.740 Uric Acid 4.8 mg/dL Normal 3.5-7.2 Magnesium Level 2.0 mg/dL Normal 1.8-2.4 Free T4 0.75 ng/dL Low 0.76-1.46 Respiratory Panel 03/05/2021 [facility] nter [address] [place] [address] [phone] Respiratory Panel This respiratory <SEE NOTE> 4 Basic Metabolic Profile 03/04/2021 [place] [address] [phone] Glucose, Fasting 120 mg/dL High 70-100 Blood Urea Nitrogen 9 mg/dL Normal 7-18 Creatinine For GFR 0.83 mg/dL Normal 0.70-1.30 Glomerular Filtration Rate > 60.0 Normal >49 5 Sodium Level 135 mEq/L Low 136-145 Potassium Serum 4.3 mEq/L Significant change down 3.5-5.1 Chloride Level 100 mEq/L Normal 98-107 Carbon Dioxide Level 27 mEq/L Normal 21-32 Anion Gap 8 mEq/L Normal 8-16 Calcium Level 8.4 mg/dL Low 8.8-10.2 Laboratory test finding 03/04/[address] [address] [phone] Magnesium Level 1.7 mg/dL Low 1.8-2.4 Laboratory test finding 03/04/[address] [address] [phone] Ionized Calcium 4.6 mg/dL Normal 4.5-5.3 Respiratory Panel 03/01/2021 [facility] nter [address] [place] [address] [phone] Respiratory Panel This respiratory <SEE NOTE> 6 Drug Eval Toxicology ED Only 02/23/[address] [address] [phone] Amphetamines Level Urine NEGATIVE Normal Negativ e Barbiturates Urine NEGATIVE Normal Negative Benzodiazepines Urine NEGATIVE Normal Negative Cannabinoids Urine NEGATIVE Normal Negative Cocaine Metabolite Urine NEGATIVE Normal Negative Methadone Urine NEGATIVE Normal Negative Opiates Urine NEGATIVE Normal Negative Phencyclidine Urine NEGATIVE Normal Negative 7 Blood Culture 02/23/2021 [facility] n[facility] [address] [place] [address] [phone] Blood Culture No growth after <SEE NOTE> 8 Laboratory test finding 02/23/[address] [address] [phone] Osmolality Serum 294 MOSM/KG Normal 280-301 Ethyl Alcohol (Ethanol) < 0.003 % Normal 0.000-0.010 Salicylate Level < 1.7 mg/dL Low 5.0-30.0 Acetaminophen Level 2.7 UG/ML Low 10.0-30.0 Thyroid Stimulating Hormone < 0.005 uIU/ML Low 0.358-3.740 Free T4 0.88 ng/dL Normal 0.76-1.46 Magnesium Level 1.8 mg/dL Normal 1.8-2.4 Basic Metabolic Profile 02/23/2021 [facility] [address] [place] [address] [phone] Glucose, Fasting 223 mg/dL High 70-100 Blood [...] 8.5 mg/dL Low 8.8-10.2 Liver Profile 02/23/2021 [facility] n[facility] [address] [place] [address] [phone] Ast/Sgot 18 U/L Normal 7-37 Alt/SGPT 47 U/L Normal 12-78 Alkaline Phosphatase 89 U/L Normal 45-117 Bilirubin,Total 0.6 mg/dL Normal 0.2-1.0 Bilirubin,Direct 0.2 mg/dL Normal 0.0-0.2 Total Protein 5.5 GM/DL Low 6.4-8.2 Albumin 2.8 GM/DL Low 3.2-5.2 Albumin/Globulin Ratio 1.0 Normal Cardiac Marker Panel 02/23/2021 [facility] enter [address] [place] [address] [phone] CPK Creatine Phosphokinase 22 U/L Low 39-30 8 CK-MB Value Mass 1.2 NG/ML Normal <3.6 MB/CK Relative Index 5.45 High < Or =4 10 Troponin I < 0.02 NG/ML Normal < 0.10 11 Laboratory test finding 02/23/2021 [place] [address] [place] [address] [phone] Ammonia 26 uMOL/L Normal <32 Lactic Acid Sepsis Protocol 3.9 mmol/L Critical high 0.4-2.0 12 CBC With Differential 02/23/2021 [place] [address] [place] [address] [phone] White Blood Count 8.0 10 Normal 4.0-10.0 [...] 36.0-66.0 Lymph % 14.8 % Low 24.0-44.0 [place] % 4.1 % Normal 2.0-8.0 Eos % 0.0 % Normal 0.0-3.0 Baso % 1.5 % High 0.0-1.0 Immature Granulocyte % 5.0 % High 0-3.0 Nucleated Red Blood Cell % 0.4 % High 0-0 Neutrophils # 6.0 10 Normal 1.5-8.5 Lymph # 1.2 10 Low 1.5-5.0 [place]cer # 0.3 10 Normal 0.0-0.8 Eos # 0.0 10 Normal 0.0-0.5 Baso # 0.1 10 Normal 0.0-0.2 Laboratory test finding 02/23/2021 [facility] [address] [place] [address] [phone] Bedside Glucose 216 mg/dL High 80-115 Blood Culture 02/23/2021 [facility] n[facility] [address] [place] [address] [phone] Blood Culture No growth after <SEE NOTE> 13 Laboratory test finding 02/23/2021 [facility] [address] [place] [address] [phone] Osmolality Urine 693 MOSM/KG Normal 50-1400 Creatinine,Random Urine 105.0 mg/dL Normal Sodium,Random Urine 111 mEq/L Normal Ua W/ Reflex To Culture 02/23/[address] [address] [phone] Appearance, Urine RFX CLEAR Normal Clear Color, Urine RFX YELLOW Normal Yellow PH,Urine RFX 6.0 units Normal 5.0-9.0 Specific [place] Ur Auto RFX 1.020 Normal 1.002-1.035 Protein, [...] /LPF Normal 0-1 Laboratory test finding 02/23/[address] [address] [phone] Lactic Acid Sepsis Protocol 2.4 mmol/L Critical high 0 .4-2.0 14 Basic Metabolic Profile 02/23/[address] [address] [phone] Glucose, Fasting 148 mg/dL High 70-100 Blood Urea Nitrogen 14 mg/dL Normal 7-18 Creatinine For GFR 0.89 mg/dL Normal 0.70-1.30 Glomerular Filtration Rate > 60.0 Normal >49 1 5 Sodium Level 143 mEq/L Normal 136-145 Potassium Serum 3.6 mEq/L Normal 3.5-5.1 Chloride Level 111 mEq/L High 98-107 Carbon Dioxide Level 27 mEq/L Normal 21-32 Anion Gap 5 mEq/L Low 8-16 Calcium Level 7.4 mg/dL Low 8.8-10.2 Laboratory test finding 01/26/2021 [facility] [address] [place], [place] [address] [phone] Testosterone 201 ng/dL Low 241-827 16 Complete Blood Count 01/26/2021 [place] [employer] Consultant: [place] [address] [phone] WBC 13.0 x10*3/UL High 4.1 - 10.9 17 RBC 4.97 x10*6/UL 4.20 - 6.30 Hemoglobin [...] 2.0 - 7.8 Comprehensive Chem Profile 01/26/2021 [place] [facility] [employer] Consultant: [place] [address] [phone] Glucose 248 mg/dL High 74 - 99 18 BUN 19 mg/dL High 7 - 18 [...] mL/min >60 GFR >= 60 mL/min >60 19 A1c 01/26/2021 [facility] Market Intelligence Consultant: [place] [address] [phone] Hba1c 6.5 % High <5.7 20 Est Avg Glucose 140 mg/dL High 60 - 110 Laboratory test finding 01/26/2021 [facility] [employer] Intelligence Consultant: [place] [address] [phone] T4 Free 0.93 ng/dL 0.76 - 1.46 CMP W/Egfr 01/08/2021 [facility] n[facility] [address] [place] [address] [phone] Glucose, Fasting 237 mg/dL High 70-100 Blood Urea Nitrogen 16 mg/dL Normal 7-18 Creatinine For GFR 1.11 mg/dL Normal 0.70-1.30 Glomerular Filtration Rate > 60.0 Normal >49 2 1 Sodium Level 141 mEq/L Normal 136-145 Potassium [...] Ratio 1.0 Normal Laboratory test finding 01/08/2021 [facility] [address] [place] [address] [phone] Magnesium Level 2.3 mg/dL Normal 1.8-2.4 Basic Metabolic Profile 01/08/2021 [facility] [address] [place], [place] [address]3753 [phone] Glucose, Fasting 226 mg/dL High 70-100 Blood Urea Nitrogen 15 mg/dL Normal 7-18 Creatinine For GFR 1.09 mg/dL Normal 0.70-1.30 Glomerular Filtration Rate > 60.0 Normal >49 2 2 Sodium Level 139 mEq/L Normal 136-145 Potassium Serum 3.8 mEq/L Normal 3.5-5.1 Chloride Level 103 mEq/L Normal 98-107 Carbon Dioxide Level 30 mEq/L Normal 21-32 Anion Gap 6 mEq/L Low 8-16 Calcium Level 7.9 mg/dL Low 8.8-10.2 1 DIAGNOSIS CRITERIA MMB ng/ml Relative Index (RI) NON-AMI < or = 5 N/A OBRIEN ZONE > 5 < or = 4 AMI > 5 > 4 2 Troponin I Reference Interva l for Protalex LOCI: 99th Percentile= 0.00-0.045 ng/ml Risk Stratification: <= 0.10 ng/ml Decreased Risk for Adverse Clinical Events. 0.10-1.50 ng/ml Increased Risk for Adv erse Clinical Events. Evaluation of additional criterion and/or repeat testing in 2-6 hours is suggested to rule out myocardial damage. >= 1.50 ng/ml Indicative of Myocardial Injury. 3 Units are mL/min/1.73 m2 Chronic Kidney Disease Staging per NKF: Stage I & II GFR >=60 Normal to Mildly Decreased Stage III GFR 30-59 Moderately Decreased Stage IV GFR 15-29 Severely Decreased Stage V GFR <15 Very Little GFR Left ESRD GFR <15 on SOLID WASTE [employer]FI[employer] TECHNICIAN 4 This respiratory PCR panel d etects Influenza A H1, H3 and 2009 H1 viruses, Influenza B virus, Resp iratory Syncytial Virus, Human metapneumovirus, Parainfluenza virus 1, 2, 3 and 4, Adenovirus, Rhinovirus/Enterovirus, Coronavirus HKU1, NL63, OC43, 229E and SARS-CoV-2 (COVID 19), Bordetella pertussis, Bordetella parapertussis, Mycoplasma pneumoniae and Chlamydia pneumoniae. NEGATIVE by MULTIPLEXED NUCLEIC ACID PCR SARS-CoV-2 (COVID 19) NEGATIVE - SARS-CoV-2 (COVID19) 5 Units are mL/min/1.73 m2 Chronic Kidney Disease Staging per NKF: Stage I & II GFR >=60 Normal to Mildly Decreased Stage III GFR 30-59 Moderately Decreased Stage IV GFR 15-29 Severely Decreased Stage V GFR <15 Very Little GFR Left ESRD GFR <15 on [employer] W[employer]E [employer] TECHNICIAN 6 This respiratory PCR panel d etects [...] (COVID 19) NEGATIVE - SARS-CoV-2 (COVID19) 7 ALL PRESUMPTIVE POSITIVE FINDINGS ARE UNCONFIRMED THRESHOLD [...] CLOSELY RELATED COMPOUNDS PLEASE CALL THE LAB. 8 No growth after 72 hours . [...] Little GFR Left ESRD GFR <15 on [employer] W[employer]E [employer]FI[employer] TECHNICIAN 10 DIAGNOSIS CRITERIA MMB ng/ml Relative Index (RI) NON-AMI < or = 5 N/A OBRIEN ZONE > 5 < or = 4 AMI > 5 > 4 11 Troponin I Reference Interva l for Protalex LOCI: 99th Percentile= 0.00-0.045 ng/ml Risk Stratification: [...] query for Sepsis Lactate Rule: Y 15 Units are mL/min/1.73 m2 Chronic Kidney Disease Staging per NKF: Stage I & II GFR >=60 Normal to Mildly Decreased Stage III GFR 30-59 Moderately Decreased Stage IV GFR 15-29 Severely Decreased Stage V GFR <15 Very Little GFR Left ESRD GFR <15 on SOLID WASTE [employer]FI[employer] TECHNICIAN 16 NORMAL RANGES ARE FOR ADULT FEMALES (OVER 15 YRS) AND MALES (OVER 19 YRS). FOR PEDIATRIC RANGES PLE ASE CONSULT LITERATURE. 17 NOTE: CBC VERIFIED 18 100-125 mg/dL PRE-DIABET ES/FASTING >126 mg/dL DIABETES/FASTING 19 CHRONIC KIDNEY DISEASE STAGI NG PER NKF STAGE I & II GFR >= 60 NORMAL TO MILDLY DECREASED STAGE III GFR 30-59 MODERATELY DECREASED STAGE IV GFR 15-29 SEVERELY DECREASED STAGE V GFR <15 VERY LITTLE GFR LEFT ESRD GFR <15 ON SOLID WASTE LANDFILL TECHNICIAN 20 Lab Result Notes: Pre-Diabetes 5.7 - 6.4 % Diabetes = or > 6.5% 21 Units are mL/min/1.73 m2 Chronic Kidney Disease Staging per NKF: Stage I & II GFR >=60 Normal to Mildly Decreased Stage III GFR 30-59 Moderately Decreased Stage IV GFR 15-29 Severely Decreased Stage V GFR <15 Very Little GFR Left ESRD GFR <15 on SOLID WASTE L[employer]FILL TECHNICIAN 22 Units are mL/min/1.73 m2 Chronic Kidney Disease Staging per NKF: Stage I & II GFR >=60 Normal to Mildly Decreased Stage III GFR 30-59 Moderately Decreased Stage IV GFR 15-29 Severely Decreased Stage V GFR <15 Very Little GFR Left ESRD GFR <15 on SOLID WASTE LANDFILL TECHNICIAN Procedures Date Code Description Status 01/26/2021 29605 Office/Outpatient Established Mo d MDM 30-39 Min Completed 09/14/2020 [id number] Diabetic Retinal Eye Exam Comple [facility] 10/05/2017 [id number] Diabetic Retinal Eye Exam Comple [facility] 09/26/2017 [id number] Diabetic Retinal Eye Exam Comple [facility] Medical Devices Description No Information Available Encounters Type Date Location Provider Dx Diagnosis Office Visit 01/26/2021 8:00a [facility] Lino Garcia M.D. 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 Functional Status Description No Information Available Mental Status Description No Information Available Referrals Refer to Reason for Referral Status Appt Date Malik Ojeda MD CONSULT FOR GASTROENTERITIS, COLITIS Schedul ed 01/20/2021 [facility] Medical [facility] [address] [place] [id number] [phone]
--- OUTSIDE RECORDS SUMMARY | 2021-08-02 08:32 | CCD ---
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 Name Role Phone Josep Rendon MD Unavailable Unavailable Josep Rendon MD Unavailable Unavailable Josep Rendon MD Unavailable Unavailable Josep Rendon MD Unavailable Unavailable Josep Rendon MD Unavailable Unavailable Josep Rendon MD Unavailable Unavailable Josep Rendon MD Unavailable Unavailable Josep Rendon MD Unavailable Unavailable Josep Rendon MD Unavailable Unavailable Josep Rendon MD Unavailable Unavailable Josep Rendon MD Unavailable Unavailable Josep Rendon MD Unavailable Unavailable Josep Rendno MD Unavailable Unavailable Josep Rendon MD Unavailable Unavailable Josep Rendon MD Unavailable Unavailable Josep Rendon MD Unavailable Unavailable Josep Rendon MD Unavailable Unavailable Josep Rendon MD Unavailable Unavailable Josep Rendon MD Unavailable Unavailable Josep Rendon MD Unavailable Unavailable Josep Rendon MD Unavailable Unavailable Josep Rendon MD Unavailable Unavailable Josep Rendon MD Unavailable Unavailable Josep Rendon MD Unavailable Unavailable White, F Lino Unavailable Unavailable White, F Lino MD Unavailable Unavailable White, F Lino MD Unavailable Unavailable White, F Lino MD Unavailable Unavailable White, F Lino MD Unavailable Unavailable White, F Lino MD Unavailable Unavailable White, F Lino MD Unavailable Unavailable White, F Lino MD Unavailable Unavailable White, F Lino MD Unavailable Unavailable White, F Lino MD Unavailable Unavailable White, F Lino MD Unavailable Unavailable White, F Lino MD Unavailable Unavailable White, F Lino Unavailable Unavailable White, F Lino MD Unavailable Unavailable White, F Lino MD Unavailable Unavailable White, F Lino MD Unavailable Unavailable White, F Lino MD Unavailable Unavailable White, F Lino MD Unavailable Unavailable White, F Lino MD Unavailable Unavailable White, F Lino MD Unavailable Unavailable White, F Lino MD Unavailable Unavailable White, F Lino MD Unavailable Unavailable White, F Lino Unavailable Unavailable White, F Lino MD Unavailable Unavailable White, F Lino Unavailable Unavailable White, F Lino MD Unavailable Unavailable White, F Lino Unavailable Unavailable White, F Lino Unavailable Unavailable White, F Lino MD Unavailable Unavailable White, F Lino MD Unavailable Unavailable White, F Lino MD Unavailable Unavailable White, F Lino MD Unavailable Unavailable White, F Lino MD Unavailable Unavailable White, F Lino MD Unavailable Unavailable White, F Lino Unavailable Unavailable White, F Lino Unavailable Unavailable White, F Lino Unavailable Unavailable White F Lino Unavailable Unavailable White, F Lino MD Unavailable Unavailable White, F Lino Unavailable Unavailable White, F Lino Unavailable Unavailable White, F Lino Unavailable Unavailable White F Lino Unavailable Unavailable White F Lino Unavailable Unavailable White F Lino Unavailable Unavailable White F Lino Unavailable Unavailable White, F Lino Unavailable Unavailable White, F Lnio Unavailable Unavailable White F Lino Unavailable Unavailable White, F Lino Unavailable Unavailable Justice F Lino Unavailable Unavailable Justice F Lino Unavailable Unavailable Justice F Lino Unavailable Unavailable Светлана RAND MD Unavailable Unavailable Светлана RAND MD Unavailable Unavailable Светлана RAND MD Unavailable Unavailable Светлана RAND MD Unavailable Unavailable Светлана RAND MD Unavailable Unavailable Светлана RAND MD Unavailable Unavailable KEYONA, A MELANIE DOWLING Unavailable Unavailable KEYONA, Светлана NAVARRO MD Unavailable Unavailable KEYONA, A MELANIE DOWLING Unavailable Unavailable KEYONA, A MELANIE DOWLING Unavailable Unavailable KEYONA, Светлана NAVARRO MD Unavailable Unavailable KEYONA, A MELANIE DOWLING Unavailable Unavailable KEYONA, A MELANIE DOWLING Unavailable Unavailable KEYONA, A MELANIE DOWLING Unavailable Unavailable KEYONA, A MELANIE DOWLING Unavailable Unavailable KEYONA, A MELANIE DOWLING Unavailable Unavailable KEYONA, A MELANIE DOWLING Unavailable Unavailable KEYONA, A MEALNIE DOWLING Unavailable Unavailable KEYONA, A MELANIE DOWLING Unavailable Unavailable KEYONA, A MELANIE DOWLING Unavailable Unavailable KEY[place], Светлана NAVARRO MD Unavailable Unavailable KEY[place], Светлана NAVARRO MD Unavailable Unavailable KEY[place], Светлана NAVARRO MD Unavailable Unavailable KEY[place], Светлана NAVARRO MD Unavailable Unavailable KEY[place], Светлана NAVARRO MD Unavailable Unavailable KEY[place], Светлана NAVARRO MD Unavailable Unavailable KEYONA, Светлана NAVARRO MD Unavailable Unavailable KEY[place], Светлана NAVARRO MD Unavailable Unavailable [place], Светлана NAVARRO MD Unavailable Unavailable KEYONA, Светлана NAVARRO MD Unavailable Unavailable KEYONA, Светлана NAVARRO MD Unavailable Unavailable KEY[place], Светлана NAVARRO MD Unavailable Unavailable [place], Светлана NAVARRO MD Unavailable Unavailable KEY[place], Светлана NAVARRO MD Unavailable Unavailable KEY[place], Светлана NAVARRO MD Unavailable Unavailable [place], Светлана NAVARRO MD Unavailable Unavailable KEY[place], Светлана NAVARRO MD Unavailable Unavailable KEY[place], Светлана NAVARRO MD Unavailable Unavailable KEY[place], Светлана NAVARRO MD Unavailable Unavailable KEY[place], A MELANIE DOWLING Unavailable Unavailable [place], Светлана NAVARRO MD Unavailable Unavailable [place], Светлана NAVARRO MD Unavailable Unavailable [place], Светлана NAVARRO MD Unavailable Unavailable [place], Светлана NAVARRO MD Unavailable Unavailable [place], Светлана NAVARRO MD Unavailable Unavailable [place], Светлана NAVARRO MD Unavailable Unavailable [place], Светлана NAVARRO MD Unavailable Unavailable [place], Светлана NAVARRO MD Unavailable Unavailable [place], Светлана NAVARRO MD Unavailable Unavailable [place], Светлана NAVARRO MD Unavailable Unavailable [place], Светлана NAVARRO MD Unavailable Unavailable [place], Светлана NAVARRO MD Unavailable Unavailable KEY[place], Светлана NAVARRO MD Unavailable Unavailable [place], Светлана NAVARRO MD Unavailable Unavailable [place], Светлана NAVARRO MD Unavailable Unavailable KEY[place], A MELANIE DOWLING Unavailable Unavailable [place], Светлана NAVARRO MD Unavailable Unavailable [place], Светлана NAVARRO MD Unavailable Unavailable [place], Светлана NAVARRO MD Unavailable Unavailable [place], Светлана NAVARRO MD Unavailable Unavailable KEY[place], A MELANIE DOWLING Unavailable Unavailable [place], Светлана NAVARRO MD Unavailable Unavailable KEY[place], Светлана NAVARRO MD Unavailable Unavailable KEY[place], Светлана NAVARRO MD Unavailable Unavailable [place], Светлана NAVARRO MD Unavailable Unavailable [place], Светлана NAVARRO MD Unavailable Unavailable [place], Светлана NAVARRO MD Unavailable Unavailable KEY[place], Светлана NAVARRO MD Unavailable Unavailable [place], Светлана NAVARRO MD Unavailable Unavailable [place], Светлана NAVARRO MD Unavailable Unavailable KEY[place], Светлана NAVARRO MD Unavailable Unavailable KEY[place], Светлана NAVARRO MD Unavailable Unavailable KEY[place], Светлана NAVARRO MD Unavailable Unavailable KEY[place], Светлана NAVARRO MD Unavailable Unavailable KEYONA, Светлана NAVARRO MD Unavailable Unavailable KEY[place], Светлана NAVARRO MD Unavailable Unavailable [place], Светлана NAVARRO MD Unavailable Unavailable KEYONA, Светлана NAVARRO MD Unavailable Unavailable KEYONA, Светлана NAVARRO MD Unavailable Unavailable KEY[place], Светлана NAVARRO MD Unavailable Unavailable [place], Светлана NAVARRO MD Unavailable Unavailable [place], Светлана NAVARRO MD Unavailable Unavailable KEY[place], Светлана NAVARRO MD Unavailable Unavailable [place], Светлана NAVARRO MD Unavailable Unavailable KEY[place], Светлана NAVARRO MD Unavailable Unavailable KEYONA, Светлана NAVARRO MD Unavailable Unavailable KEY[place], Светлана NAVARRO MD Unavailable Unavailable KEY[place], Светлана NAVARRO MD Unavailable Unavailable Zoe, Светлана GilliamManju Unavailable Unavailable Zoe, Светлана Manju Unavailable Unavailable Josep Kramer MD Unavailable Unavailable Josep Kramer MD Unavailable Unavailable Josep Kramer MD Unavailable Unavailable Josep Kramer MD Unavailable Unavailable Josep Kramer MD Unavailable Unavailable Josep Kramer MD Unavailable Unavailable Josep Kramer MD Unavailable Unavailable Josep Kramer MD Unavailable Unavailable Josep Kramer MD Unavailable Unavailable Josep Kramer MD Unavailable Unavailable Josep Kramer MD Unavailable Unavailable Josep Kramer MD Unavailable Unavailable Josep Kramer MD Unavailable Unavailable Josep Kramer MD Unavailable Unavailable Josep Kramer MD Unavailable Unavailable Josep Kramer MD Unavailable Unavailable Josep Kramer MD Unavailable Unavailable Josep Kramer MD Unavailable Unavailable Fish, Malou Orozco MD Unavailable Unavailable Fish, Malou Orozco MD Unavailable Unavailable Fish, Malou Orozco MD Unavailable Unavailable Fish, Malou Orozco MD Unavailable Unavailable Fish, Malou Orozco MD Unavailable Unavailable Fish, Malou Orozco MD Unavailable Unavailable Fish, Malou Orozco MD Unavailable Unavailable Fish, Malou Orozco MD Unavailable Unavailable Fish, Malou Orozco MD Unavailable Unavailable Fish, Malou Orozco MD Unavailable Unavailable Fish, Malou Orozco MD Unavailable Unavailable Fish, Malou Orozco MD Unavailable Unavailable Fish, Malou Orozco MD Unavailable Unavailable Fish, Malou Orozco MD Unavailable Unavailable Fish, Malou Orozco MD Unavailable Unavailable Fish, Malou Orozco MD Unavailable Unavailable Fish, Malou Orozco MD Unavailable Unavailable Fish, Malou Orozco MD Unavailable Unavailable Fish, Malou Orozco MD Unavailable Unavailable Fish, Malou Orozco MD Unavailable Unavailable Fish, Malou Orozco MD Unavailable Unavailable Fish, Malou Orozco MD Unavailable Unavailable Fish, Malou Orozco MD Unavailable Unavailable Fish, Malou Orozco MD Unavailable Unavailable Fish, Malou Orozco MD Unavailable Unavailable FishMalou MD Unavailable Unavailable FishMalou MD Unavailable Unavailable FishMalou MD Unavailable Unavailable Fish, Malou Orozco MD Unavailable Unavailable Fish, Malou Orozco MD Unavailable Unavailable Fish, Malou Orozco MD Unavailable Unavailable Fish, Malou Orozco MD Unavailable Unavailable Fish, Malou Orozco MD Unavailable Unavailable Fish, Malou Orozco MD Unavailable Unavailable Fish, Malou Orozco MD Unavailable Unavailable Fish, Malou Orozco MD Unavailable Unavailable Fish, Malou Orozco MD Unavailable Unavailable Fish, Malou Orozco MD Unavailable Unavailable Fish, Malou Orozco MD Unavailable Unavailable Fish, Malou Orozco MD Unavailable Unavailable Fish, Malou Orozco MD Unavailable Unavailable Fish, B Pam DOWLING Unavailable Unavailable Fish, B Pam DOWLING Unavailable Unavailable Fish, B Pam DOWLING Unavailable Unavailable Fish, B Pam DOWLING Unavailable Unavailable Fish, B Pam DOWLING Unavailable Unavailable Fish, B Pam DOWLING Unavailable Unavailable Fish, B Pam DOWLING Unavailable Unavailable Fish, B Pam DOWLING Unavailable Unavailable Fish, B Pam DOWLING Unavailable Unavailable Fish, B Pam DOWLING Unavailable Unavailable Fish, B Pam DOWLING Unavailable Unavailable Fish, B Pam DOWLING Unavailable Unavailable Fish, B Pam DOWLING Unavailable Unavailable Fish, B Pam DOWLING Unavailable Unavailable Fish, B Pam DOWLING Unavailable Unavailable Fish, B Pam DOWLING Unavailable Unavailable Fish, B Pam DOWLING Unavailable Unavailable Fish, B Pam DOWLING Unavailable Unavailable Fish, B Pam DOWLING Unavailable Unavailable Fish, B Pam DOWLING Unavailable Unavailable Fish, B Pam DOWLING Unavailable Unavailable Fish, B Pam DOWLING Unavailable Unavailable Fish, B Pam DOWLING Unavailable Unavailable Fish, B Pam DOWLING Unavailable Unavailable Dumont, A Phyl OVERWEAVER-BC Unavailable Unavailable Dumont, A Phyl OVERWEAVER-BC Unavailable Unavailable Dumont, A Phyl OVERWEAVER-BC Unavailable Unavailable Dumont, A Phyl OVERWEAVER-BC Unavailable Unavailable Dumont, A Phyl OVERWEAVER-BC Unavailable Unavailable Dumont, A Phyl OVERWEAVER-BC Unavailable Unavailable Dumont, A Phyl OVERWEAVER-BC Unavailable Unavailable Dumont, A Phyl OVERWEAVER-BC Unavailable Unavailable Dumont, A Phyl OVERWEAVER-BC Unavailable Unavailable Dumont, A Phyl OVERWEAVER-BC Unavailable Unavailable Dumont, A Phyl OVERWEAVER-BC Unavailable Unavailable Dumont, A Phyl OVERWEAVER-BC Unavailable Unavailable Dumont, A Phyl OVERWEAVER-BC Unavailable Unavailable Dumont, A Phyl OVERWEAVER-BC Unavailable Unavailable Dumont, A Phyl OVERWEAVER-BC Unavailable Unavailable Dumont, A Phyl OVERWEAVER-BC Unavailable Unavailable Dumont, A Phyl OVERWEAVER-BC Unavailable Unavailable Dumont, A Phyl OVERWEAVER-BC Unavailable Unavailable Dumont, A Phyl OVERWEAVER-BC Unavailable Unavailable Dumont, A Phyl OVERWEAVER-BC Unavailable Unavailable Dumont, A Phyl OVERWEAVER-BC Unavailable Unavailable Dumont, A Phyl OVERWEAVER-BC Unavailable Unavailable Dumont, A Phyl OVERWEAVER-BC Unavailable Unavailable Dumont, A Phyl OVERWEAVER-BC Unavailable Unavailable Dumont, A Phyl OVERWEAVER-BC Unavailable Unavailable Dumont, A Phyl OVERWEAVER-BC Unavailable Unavailable Dumont, A Phyl OVERWEAVER-BC Unavailable Unavailable Dumont, A Phyl OVERWEAVER-BC Unavailable Unavailable Dumont, A Phyl OVERWEAVER-BC Unavailable Unavailable Dumont, A Phyl OVERWEAVER-BC Unavailable Unavailable Dumont, A Phyl OVERWEAVER-BC Unavailable Unavailable Dumont, A Phyl OVERWEAVER-BC Unavailable Unavailable [place], Светлана Geiger MD Unavailable Unavailable [place], Светлана Geiger MD Unavailable Unavailable Yudelka, Светлана Geiger MD Unavailable Unavailable Yudelka, Светлана Geiger MD Unavailable Unavailable [place], Светлана Geiger MD Unavailable Unavailable [place], Светлана Geiger MD Unavailable Unavailable [place], Светлана Geiger MD Unavailable Unavailable [place], Светлана Geiger MD Unavailable Unavailable Yudelka, Светлана Geiger MD Unavailable Unavailable Yudelka, Светлана Geiger MD Unavailable Unavailable Yudelka, Светлана Geiger MD Unavailable Unavailable Yudelka, Светлана Geiger MD Unavailable Unavailable [place], Светлана Geiger MD Unavailable Unavailable [place], Светлана Geiger MD Unavailable Unavailable [place], Светлана Geiger MD Unavailable Unavailable Yudelka, Светлана Geiger MD Unavailable Unavailable [place], Светлана Geiger MD Unavailable Unavailable Yudelka, Светлана Geiger MD Unavailable Unavailable [place], Светлана Geiger MD Unavailable Unavailable Yudekla, Светлана Geiger MD Unavailable Unavailable Yudelka, Светлана Geiger MD Unavailable Unavailable [place], Светлнаа Geiger MD Unavailable Unavailable [place], Светлана Geiger MD Unavailable Unavailable Yudelka, Светлана Geiger MD Unavailable Unavailable [place]udelka, Светлана Geiger MD Unavailable Unavailable [place], Светлана Geiger MD Unavailable Unavailable [place], Светлана Geiger MD Unavailable Unavailable [place], Светлана Geiger MD Unavailable Unavailable Yudelka, Светлана Geiger MD Unavailable Unavailable [place], Светлана Geiger MD Unavailable Unavailable [place], Светлана Geiger MD Unavailable Unavailable [place], Светлана Geiger MD Unavailable Unavailable [place], Светлана Geiger MD Unavailable Unavailable [place], Светлана Geiger MD Unavailable Unavailable [place], Светлана Geiger MD Unavailable Unavailable Yudelka, Светлана Geiger MD Unavailable Unavailable [place]udelka, Светлана Geiger MD Unavailable Unavailable Balaji DUNN Unavailable Unavailable Balaji CAGE MD Unavailable Unavailable Balaji CAGE MD Unavailable Unavailable Balaji CAGE MD Unavailable Unavailable Balaji CAGE MD Unavailable Unavailable Balaji CAGE MD Unavailable Unavailable Balaji CAGE MD Unavailable Unavailable Re-disclosure Warning The records that you are about to access may contain information from federally-assisted alcohol or drug abuse programs. If such information is present, then the following federally mandated warning applies: This information has been disclosed to you from records protected by federal confidentiality rules (42 CFR part 2). The federal rules prohibit you from making any further disclosure of this information unless further disclosure is expressly permitted by the written consent of the person to whom it pertains or as otherwise permitted by 42 CFR part 2. A general authorization for the release of medical or other information is NOT sufficient for this purpose. The Federal rules restrict any use of the information to criminally investigate or prosecute any alcohol or drug abuse patient.The records that you are about to access may contain highly sensitive health information, the redisclosure of which is protected by Article 27-F of the [facility] Public Health law. If you continue you may have access to information: Regarding HIV / AIDS; Provided by facilities licensed or operated by the [facility] Office of Mental Health; or Provided by the [facility] Office for People With Developmental Disabilities. If such information is present, then the following [facility] mandated warning applies: This information has been disclosed to you from confidential records which are protected by state law. State law prohibits you from making any further disclosure of this information without the specific written consent of the person to whom it pertains, or as otherwise permitted by law. Any unauthorized further disclosure in violation of state law may result in a fine or [place] health [facility] sentence or both. A general authorization for the release of medical or other information is NOT sufficient authorization for further disc losure. Allergies and Adverse Reactions Type Description Substance Reaction Status Data Source(s ) Propensity to adverse reactions AMOXICILLIN Amoxicillin [facility] Family History Family Member Name Family Member Gender Family Member Status Date o f Status Description Data Source(s) Unknown Male Problem [facility] ([facility]) () Unknown [facility] () Encounters Encounter Providers Location Date Indications Data Source(s ) Outpatient Attender: Lino Zavala 05/04 02:00:00 PM EDT [facility] ([facility] ) Outpatient Attender: Rai Dumont [facility] Main Office 0 04/14/2021 02:00:00 PM EDT [facility] ([facility]) Outpatient Attender: Pam Veronica MD Physical Therapy 04/09 02:15:00 PM EDT [facility] ([facility]) Outpatient Attender: Lino Zavala 01/26 08:00:00 AM EDT [facility] ([facility] ) Outpatient Referrer: Manju Enriquez 12/16/2020 12:00: 00 AM EST Benign neoplasm of pituitary gland [facility] Benign neoplasm of pituitary gland Outpatient Attender: Lino Zavala 11/04 12:00:00 PM EST [facility] ([facility] ) Outpatient Attender: Pam Veronica MD Physical Therapy 09/30 02:00:00 PM EST [facility] ([facility]) Outpatient Attender: Juanjo Jha MD 09/25/2020 12:00:0 0 AM [facility] Outpatient Referrer: HAMILTON DUNN 09/22/2020 12:00:[address] [facility] Outpatient 09/19/2020 12:00:00 AM [facility] Outpatient Attender: Juanjo Jha MDReferrer: SA SABINO RAND MD [id number] 09/18/2020 12:00:00 AM EST - 09/18/2020 02:33:14 PM EST f/u [facility] f/u Outpatient 09/16/2020 12:00:00 AM [facility] Outpatient 09/15/2020 12:00:00 AM [facility] Emergency Attender: CUCA CAGE MDAttender: Sreekanth gavin MD [id number] 09/14/2020 12:00:00 AM EST - 09/14/2020 11:02:00 PM EST Other specified disorders of brain [facility] Other specified disorders of brain Patient discharged. Outpatient Attender: Lino Zavala 09/08 01:30:00 PM EST [facility] ([facility] ) Outpatient 06/17/2020 12:00:00 AM [facility] Outpatient Referrer: HAMILTON DUNN 06/02/2020 12:00:0 0 AM EDT Hyperprolactinemia [facility] Hyperprolactinemia Medications Medication Brand Name Start Date Product Form Dose Route Admi nistrative Instructions Pharmacy Instructions Status Indications Reaction Description Data Source(s) 5 mg 07/30/2021 12:00:00 AM EDT tablet 60 TAKE ONE TABLET BY MOUTH TWO TIMES A DAY NEEDED FOR PAIN MAXIMUM DAILY DOSE = 2 TAKE ONE TABLET BY MOUTH TWO TIMES A DAY NEEDED FOR PAIN MAXIMUM DAILY DOSE = 2 SOLD: 07/31/2021 [facility] 30 mg 07/28/2021 12:00:00 AM EDT tablet 60 TAKE ONE TABLET BY MOUTH TWICE A DAY TAKE ONE TABLET BY MOUTH TWICE A DAY SOLD: 07/31/2021 [facility] 8 mg 07/21/2021 12:00:00 AM EDT tablet 9 TAKE ONE TABLET BY MOUTH 1 HOUR BEFORE CHEMOTHERAPY AND REPEAT EVERY 8 HOURS NEEDED FOR NAUSEA TAKE ONE TABLET BY MOUTH 1 HOUR BEFORE CHEMOTHERAPY AND REPEAT EVERY 8 HOURS NEEDED FOR NAUSEA SOLD: 07/22/2021 [facility] 20.25 mg/1.25 gram (1.62 %) 07/21/2021 12:00:00 AM EDT gel in metered-dose pump 150 APPLY 4 PUMPS TO ARM AREA DAILY MAXIMUM DAILY DOSE = 4 PUMPS APPLY 4 PUMPS TO ARM AREA DAILY MAXIMUM DAILY DOSE = 4 PUMPS SOLD: 07/22/2021 [facility] 24 HR Bupropion Hydrochloride 150 MG Extended Release Oral T ablet BUPROPION HCL 07/20/2021 12:00:00 AM EDT tablet extended release 24 hr 30 TAKE ONE TABLET BY MOUTH EVERY DAY , MAXIMUM DAILY DOSE = 150MG TAKE ONE TABLET BY MOUTH EVERY DAY , MAXIMUM DAILY DOSE = 150MG SOLD: 07/21/2021 [facility] 40 mg 07/18/2021 12:00:00 AM EDT capsule,delayed release (DR/EC) 180 TAKE ONE CAPSULE BY MOUTH TWICE A DAY TAKE ONE CAPSULE BY MOUTH TWICE A DAY SOLD: 07/21/2021 [facility] 20 mEq 07/15/2021 12:00:00 AM EDT tablet extended release 90 TAKE ONE TABLET BY MOUTH EVERY DAY TAKE ONE TABLET BY MOUTH EVERY DAY SOLD: 07/16/2021 [facility] 100 mg 07/14/2021 12:00:00 AM EDT capsule 180 TAKE 3 CAPSULES BY MOUTH TWO TIMES A DAY MAXIMUM DAILY DOSE = 6 TAKE 3 CAPSULES BY MOUTH TWO TIMES A DAY MAXIMUM DAILY DOSE = 6 SOLD: 07/16/2021 [facility] 1 mg 07/11/2021 12:00:00 AM EDT tablet 60 TAKE ONE TABLET BY MOUTH TWICE A DAY MAXIMUM DAILY DOSE = 2 TABLETS TAKE ONE TABLET BY MOUTH TWICE A DAY MAX IMUM DAILY DOSE = 2 TABLETS SOLD: 07/13/2021 [facility] Cefixime 400 MG Oral Capsule CEFIXIME 07/05/2021 12:00:00 AM EDT caps ule 7 TAKE ONE CAPSULE BY MOUTH DAILY FOR 7 DAYS TAKE ONE CAPSULE BY MOUTH DAILY FOR 7 DAYS SOLD: 07/05/2021 [facility] Cefixime 400 MG Oral Capsule CEFIXIME 07/04/2021 12:00:00 AM EDT caps ule 1 TAKE ONE CAPSULE BY MOUTH ONCE DAILY FOR 1 DOSE TAKE ONE CAPSULE BY MOUTH ONCE DAILY FOR 1 DOSE SOLD: 07/04/2021 [facility] 25 mg 06/24/2021 12:00:00 AM EDT tablet 60 TAKE ONE-HALF TABLET BY MOUTH EVERY MORNING, TAKE ONE-HALF TABLET MIDDAY, AND TAKE ONE TABLET IN THE LATE EVENING TAKE ONE-HALF TABLET BY MOUTH EVERY MORN ING, TAKE ONE-HALF TABLET MIDDAY, AND TAKE ONE TABLET IN THE LATE EVENING SOLD: 06/26/2021 [facility] 25 mg 06/24/2021 12:00:00 AM EDT tablet 60 TAKE ONE-HALF TABLET BY MOUTH EVERY MORNING, TAKE ONE-HALF TABLET MIDDAY, AND TAKE ONE TABLET IN THE LATE EVENING TAKE ONE-HALF TABLET BY MOUTH EVERY MORN ING, TAKE ONE-HALF TABLET MIDDAY, AND TAKE ONE TABLET IN THE LATE EVENING SOLD: 07/31/2021 [facility] 25 mcg 06/19/2021 12:00:00 AM EDT tablet 90 TAKE ONE TABLET BY MOUTH EVERY MORNING TAKE ONE TABLET BY MOUTH EVERY MORNING SOLD: 06/23/2021 [facility] 8 mg 06/16/2021 12:00:00 AM EDT tablet 9 TAKE ONE TABLET BY MOUTH 1 HOUR BEFORE CHEMO (TEMOZOLOMIDE) AND REPEAT EVERY 8 HOURS NEEDED FOR NAUSEA TAKE ONE TABLET BY MOUTH 1 HOUR BEFORE CHEMO (TEMOZOLOMIDE) AND REPEAT EVERY 8 HOURS NEEDED FOR NAUSEA SOLD: 06/17/2021 [facility] 100 mg 06/12/2021 12:00:00 AM EDT capsule 180 TAKE THREE CAPSULES BY MOUTH TWICE A DAY , MAXIMUM DAILY DOSE = 6 CAPSULES TAKE THREE CAPSULES BY MOUTH TWICE A DAY , MAXIMUM DAILY DOSE = 6 CAPSULES SOLD: 06/12/2021 [facility] 1 mg 06/11/2021 12:00:00 AM EDT tablet 60 TAKE ONE TABLET BY MOUTH TWICE A DAY , MAXIMUM DAILY DOSE = 2 TABLETS TAKE ONE TABLET BY MOUTH TWICE A DAY , MAXIMUM DAILY DOSE = 2 TABLETS SOLD: 06/12/2021 [facility] 5 mg 05/23/2021 12:00:00 AM EDT tablet 90 TAKE ONE TABLET BY MOUTH EVERY DAY TAKE ONE TABLET BY MOUTH EVERY DAY SOLD: 05/24/2021 [facility] 100 mg 05/16/2021 12:00:00 AM EDT capsule 180 TAKE THREE CAPSULES BY MOUTH TWICE A DAY MAXIMUM DAILY DOSE = 6 CAPSULES TAKE THREE CAPSULES BY MOUTH TWICE A DAY MAXIMUM DAILY DOSE = 6 CAPSULES SOLD: 05/18/2021 [facility] 20.25 mg/1.25 gram (1.62 %) 05/13/2021 12:00:00 AM EDT gel in metered-dose pump 150 APPLY 4 PUMPS TO ARM AREA ONCE D AILY MAXIMUM DAILY DOSE = 4 PUMPS APPLY 4 PUMPS TO ARM AREA ONCE DAILY MAXIMUM DAILY DOSE = 4 PUMPS SOLD: 05/13/2021 [facility] 10 mg 05/09/2021 12:00:00 AM EDT tablet 150 TAKE 3.5 TABLETS (35MG) ONCE DAILY WITH BREAKFAST TAKE 3.5 TABLETS (35MG) ONCE DAILY WITH BREAKFAST SOLD : 05/09/2021 [facility] 500 mg calcium (1,250 mg) 05/07/2021 12:00:00 AM EDT tablet 180 TAKE ONE TABLET BY MOUTH TWICE A DAY TAKE ONE TABLET BY MOUTH TWICE A DAY SOLD: 05/09/2021 [facility] 1 mg 2021 12:00:00 AM EDT tablet 60 TAKE ONE TABLET BY MOUTH TWICE A DAY MAXIMUM DAILY DOSE = TWO TABLETS TAKE ONE TABLET BY MOUTH TWICE A DAY MAXIMUM DAILY DOSE = TWO TABLETS SOLD: 05/09/2021 [facility] Calcium Carbonate 1250 MG Oral Tablet Oyster Shell Calcium 0 2021 12:00:00 AM EDT ORAL active [facility] ([facility]) Prednisone 20 MG Oral Tablet Prednisone 05/04/2021 12:00:00 AM EDT ORAL completed [facility] ([facility]) 100 mcg 04/16/2021 12:00:00 AM EDT tablet 30 TAKE ONE TABLET BY MOUTH EVERY DAY TAKE ONE TABLET BY MOUTH EVERY DAY SOLD: 05/18/2021 [facility] 100 mg 04/16/2021 12:00:00 AM EDT capsule 180 TAKE THREE CAPSULES BY MOUTH TWICE A DAY MAXIMUM DAILY DOSE = 6 CAPSULES TAKE THREE CAPSULES BY MOUTH TWICE A DAY MAXIMUM DAILY DOSE = 6 CAPSULES SOLD: 04/17/2021 [facility] 100 mcg 04/16/2021 12:00:00 AM EDT tablet 30 TAKE ONE TABLET BY MOUTH EVERY DAY TAKE ONE TABLET BY MOUTH EVERY DAY SOLD: 06/17/2021 [facility] 100 mcg 04/16/2021 12:00:00 AM EDT tablet 30 TAKE ONE TABLET BY MOUTH EVERY DAY TAKE ONE TABLET BY MOUTH EVERY DAY SOLD: 07/16/2021 [facility] 100 mcg 04/16/2021 12:00:00 AM EDT tablet 30 TAKE ONE TABLET BY MOUTH EVERY DAY TAKE ONE TABLET BY MOUTH EVERY DAY SOLD: 04/17/2021 [facility] Sulfamethoxazole 800 MG / Trimethoprim 160 MG Oral Tablet [B actrim] Bactrim DS 04/09/2021 12:00:00 AM EDT active [facility] ([facility]) 1 mg 04/03/2021 12:00:00 AM EDT tablet 60 TAKE ONE TABLET BY MOUTH TWO TIMES A DAY, MAXIMUM DAILY DOSE = 2 TABLETS TAKE ONE TABLET BY MOUTH TWO TIMES A DAY , MAXIMUM DAILY DOSE = 2 TABLETS SOLD: 04/07/2021 [facility] 2 mg 03/23/2021 12:00:00 AM EDT tablet 23 TAKE 5 TABLETS BY MOUTH TODAY, THEN 4 TABLETS DAILY FOR 2 DAYS, THEN 3 TABLETS DAILY FOR 2 DAYS, THEN 2 TABLETS DAILY FOR 2 DAYS, THEN RESUME PREDNISONE TAKE 5 TABLETS BY MOUTH TODAY, THEN 4 TABLETS DAILY FOR 2 DAYS, THEN 3 TABLETS DAILY FOR 2 DAYS, THEN 2 TABLETS DAILY FOR 2 DAYS, THEN RESUME PREDNISONE SOLD: 03/27/2021 [facility] Potassium Chloride 20 MEQ Extended Release Oral Tablet Potas sium Chloride ER 03/22/2021 12:00:00 AM EDT ORAL active [facility] ([facility]) 20 mEq 03/21/2021 12:00:00 AM EDT tablet extended release 90 TAKE ONE TABLET BY MOUTH THREE TIMES A DAY TAKE ONE TABLET BY MOUTH THREE TIMES A DAY SOLD: 04/17/2021 [facility] 20 mEq 03/21/2021 12:00:00 AM EDT tablet extended release 90 TAKE ONE TABLET BY MOUTH THREE TIMES A DAY TAKE ONE TABLET BY MOUTH THREE TIMES A DAY SOLD: 03/22/2021 [facility] 20 mEq 03/21/2021 12:00:00 AM EDT tablet extended release 90 TAKE ONE TABLET BY MOUTH THREE TIMES A DAY TAKE ONE TABLET BY MOUTH THREE TIMES A DAY SOLD: 05/18/2021 [facility] 20 mEq 03/21/2021 12:00:00 AM EDT tablet extended release 90 TAKE ONE TABLET BY MOUTH THREE TIMES A DAY TAKE ONE TABLET BY MOUTH THREE TIMES A DAY SOLD: 06/17/2021 [facility] Potassium Chloride 20 MEQ Extended Release Oral Tablet Potas sium Chloride ER 03/20/2021 12:00:00 AM EDT ORAL active [facility] ([facility]) 20 mg 03/19/2021 12:00:00 AM EDT tablet 30 TAKE TWO TABLETS BY MOUTH EVERY DAY TAKE TWO TABLETS BY MOUTH EVERY DAY SOLD: 04/22/2021 [facility] 800-160 mg 03/19/2021 12:00:00 AM EDT tablet 30 TAKE ONE TABLET BY MOUTH EVERY DAY TAKE ONE TABLET BY MOUTH EVERY DAY SOLD: 03/20/2021 [facility] 20 mg 03/19/2021 12:00:00 AM EDT tablet 30 TAKE TWO TABLETS BY MOUTH EVERY DAY TAKE TWO TABLETS BY MOUTH EVERY DAY SOLD: 03/20/2021 [facility] 800-160 mg 03/19/2021 12:00:00 AM EDT tablet 30 TAKE ONE TABLET BY MOUTH EVERY DAY TAKE ONE TABLET BY MOUTH EVERY DAY SOLD: 06/17/2021 [facility] Calcium Carbonate 1250 MG Oral Tablet 500 mg calcium ( 1,250 mg) CALCIUM CARBONATE 03/19/2021 12:00:00 AM EDT tablet 30 T VIOLET ONE TABLET BY MOUTH EVERY 6 HOURS NEEDED TAKE ONE TABLET BY MOUTH EVERY 6 HOURS NEEDED SOLD: 04/23/2021 [facility] 800-160 mg 03/19/2021 12:00:00 AM EDT tablet 30 TAKE ONE TABLET BY MOUTH EVERY DAY TAKE ONE TABLET BY MOUTH EVERY DAY SOLD: 05/18/2021 [facility] 20 mg 03/19/2021 12:00:00 AM EDT tablet 30 TAKE TWO TABLETS BY MOUTH EVERY DAY TAKE TWO TABLETS BY MOUTH EVERY DAY SOLD: 04/07/2021 [facility] Calcium Carbonate 1250 MG Oral Tablet 500 mg calcium ( 1,250 mg) CALCIUM CARBONATE 03/19/2021 12:00:00 AM EDT tablet 30 T VIOLET ONE TABLET BY MOUTH EVERY 6 HOURS NEEDED TAKE ONE TABLET BY MOUTH EVERY 6 HOURS NEEDED SOLD: 04/13/2021 [facility] Calcium Carbonate 1250 MG Oral Tablet 500 mg calcium ( 1,250 mg) CALCIUM CARBONATE 03/19/2021 12:00:00 AM EDT tablet 30 T VIOLET ONE TABLET BY MOUTH EVERY 6 HOURS NEEDED TAKE ONE TABLET BY MOUTH EVERY 6 HOURS NEEDED SOLD: 03/27/2021 [facility] 20 mg 03/19/2021 12:00:00 AM EDT tablet 30 TAKE TWO TABLETS BY MOUTH EVERY DAY TAKE TWO TABLETS BY MOUTH EVERY DAY SOLD: 05/04/2021 [facility] Calcium Carbonate 1250 MG Oral Tablet 500 mg calcium ( 1,250 mg) CALCIUM CARBONATE 03/19/2021 12:00:00 AM EDT tablet 30 T VIOLET ONE TABLET BY MOUTH EVERY 6 HOURS NEEDED TAKE ONE TABLET BY MOUTH EVERY 6 HOURS NEEDED SOLD: 03/20/2021 [facility] 800-160 mg 03/19/2021 12:00:00 AM EDT tablet 30 TAKE ONE TABLET BY MOUTH EVERY DAY TAKE ONE TABLET BY MOUTH EVERY DAY SOLD: 04/22/2021 [facility] atorvastatin 20 MG Oral Tablet ATORVASTATIN CALCIUM 03/09/2021 1 2:00:00 AM EDT tablet 90 TAKE ONE TABLET BY MOUTH EVERY D AY TAKE ONE TABLET BY MOUTH EVERY DAY SOLD: 06/17/2021 [facility] atorvastatin 20 MG Oral Tablet ATORVASTATIN CALCIUM 03/09/2021 1 2:00:00 AM EDT tablet 90 TAKE ONE TABLET BY MOUTH EVERY D AY TAKE ONE TABLET BY MOUTH EVERY DAY SOLD: 03/20/2021 [facility] 25 mcg 03/05/2021 12:00:00 AM EDT tablet 90 TAKE ONE TABLET BY MOUTH EVERY MORNING TAKE ONE TABLET BY MOUTH EVERY MORNING SOLD: 03/20/2021 [facility] 20.25 mg/1.25 gram (1.62 %) 03/03/2021 12:00:00 AM EDT gel in metered-dose pump 150 APPLY 4 PUMPS TO ARM AREA DAILY , MAXIMUM DAILY DOSE = 4 PUMPS APPLY 4 PUMPS TO ARM AREA DAILY , MAXIMUM DAILY DOSE = 4 PUMPS SOLD: 03/03/2021 [facility] 4 gram 03/02/2021 12:00:00 AM EDT powder in packet 40 TAKE ONE PACKET MIXED IN LIQUID BY MOUTH FOUR TIMES A DAY BEFORE MEALS AND AT BEDTIME DIRECTED TAKE ONE PACKET MIXED IN LIQUID BY MOUTH FOUR TIMES A DAY BEFORE MEALS AND AT BEDTIME DIRECTED SOLD: 03/02/2021 [facility] Atropine Sulfate 0.025 MG / Diphenoxylat e Hydrochloride 2.5 MG Oral Tablet 2.5- 0.025 mg DIPHENOXYLATE HCL/ATROPINE 03/02/2021 12:00:00 AM EDT tablet 40 TAKE ONE TABLET BY MOUTH BEFORE MEALS AND AT BEDTIME , MAXIMUM DAILY DOSE = 4 TABLETS TAKE ONE TABLET BY MOUTH BEFORE MEALS AN D AT BEDTIME , MAXIMUM DAILY DOSE = 4 TABLETS SOLD: 03/03/2021 [facility] 20 mEq 03/02/2021 12:00:00 AM EDT tablet,ER particles/cry stals 10 TAKE ONE TABLET BY MOUTH TWICE A DAY TAKE ONE TABLET BY MOUTH TWICE A DAY SOLD: 03/02/2021 [facility] 1 mg 02/28/2021 12:00:00 AM EDT tablet 60 TAKE ONE TABLET BY MOUTH TWO TIMES A DAY MAXIMUM DAILY DOSE = 2 TAKE ONE TABLET BY MOUTH TWO TIMES A DAY MAXIMUM DAILY DOSE = 2 SOLD: 03/02/2021 [facility] 1.62 % (40.5 mg/2.5 gram) 02/27/2021 12:00:00 AM EDT gel in packet 150 APPLY 4 PUMPS TO ARM AREA DAILY , MAXIMUM DAILY DOSE = 4 PUMPS APPLY 4 PUMPS TO ARM AREA DAILY , MAXIMUM DAILY DOSE = 4 PUMPS SOLD: 03/02/2021 [facility] 100 mg 02/24/2021 12:00:00 AM EDT tablet extended release 24 hr 30 TAKE ONE TABLET BY MOUTH EVERY DAY TAKE ONE TABLET BY MOUTH EVERY DAY SOLD: 05/30/2021 [facility] 100 mg 02/24/2021 12:00:00 AM EDT tablet extended release 24 hr 30 TAKE ONE TABLET BY MOUTH EVERY DAY TAKE ONE TABLET BY MOUTH EVERY DAY SOLD: 04/28/2021 [facility] 100 mg 02/24/2021 12:00:00 AM EDT tablet extended release 24 hr 30 TAKE ONE TABLET BY MOUTH EVERY DAY TAKE ONE TABLET BY MOUTH EVERY DAY SOLD: 06/30/2021 [facility] 100 mg 02/24/2021 12:00:00 AM EDT tablet extended release 24 hr 30 TAKE ONE TABLET BY MOUTH EVERY DAY TAKE ONE TABLET BY MOUTH EVERY DAY SOLD: 07/31/2021 [facility] 100 mg 02/24/2021 12:00:00 AM EDT tablet extended release 24 hr 30 TAKE ONE TABLET BY MOUTH EVERY DAY TAKE ONE TABLET BY MOUTH EVERY DAY SOLD: 03/27/2021 [facility] 100 mg 02/24/2021 12:00:00 AM EDT tablet extended release 24 hr 30 TAKE ONE TABLET BY MOUTH EVERY DAY TAKE ONE TABLET BY MOUTH EVERY DAY SOLD: 02/24/2021 [facility] 100 mg 02/19/2021 12:00:00 AM EDT capsule 180 TAKE THREE CAPSULES BY MOUTH TWO TIMES A DAY MAXIMUM DAILY DOSE = 6 TAKE THREE CAPSULES BY MOUTH TWO TIMES A DAY MAXIMUM DAILY DOSE = 6 SOLD: 02/24/2021 [facility] Atropine Sulfate 0.025 MG / Diphenoxylat e Hydrochloride 2.5 MG Oral Tablet 2.5- 0.025 mg DIPHENOXYLATE HCL/ATROPINE 02/14/2021 12:00:00 AM EDT tablet 40 TAKE ONE TABLET BY MOUTH FOUR TIMES A DAY NEEDED DIARRHEA MAXIMUM DAILY DOSE = 4 TABLETS TAKE ONE TABLET BY MOUTH FOUR TIMES A DA Y NEEDED DIARRHEA MAXIMUM DAILY DOSE = 4 TABLETS SOLD: 02/16/2021 [facility] 4 mg 02/13/2021 12:00:00 AM EDT tablet 30 TAKE ONE TABLET BY MOUTH DAILY MAXIMUM DAILY DOSE = 1 TAKE ONE TABLET BY MOUTH DAILY MAXIMUM DAILY DOSE = 1 SOLD: 02/16/2021 [facility] Desmopressin Acetate 0.1 MG Oral Tablet DESMOPRESSIN ACETATE 01/30/2021 12:00:00 AM EDT tablet 180 TAKE ONE TABLET BY MOUTH TWO TIMES A DAY TAKE ONE TABLET BY MOUTH TWO TIMES A DAY SOLD: 05/09/2021 [facility] Desmopressin Acetate 0.1 MG Oral Tablet DESMOPRESSIN ACETATE 01/30/2021 12:00:00 AM EDT tablet 180 TAKE ONE TABLET BY MOUTH TWO TIMES A DAY TAKE ONE TABLET BY MOUTH TWO TIMES A DAY SOLD: 02/09/2021 [facility] 30 mg 01/28/2021 12:00:00 AM EDT tablet 60 TAKE ONE TABLET BY MOUTH TWICE A DAY TAKE ONE TABLET BY MOUTH TWICE A DAY SOLD: 02/27/2021 [facility] 30 mg 01/28/2021 12:00:00 AM EDT tablet 60 TAKE ONE TABLET BY MOUTH TWICE A DAY TAKE ONE TABLET BY MOUTH TWICE A DAY SOLD: 06/30/2021 [facility] 30 mg 01/28/2021 12:00:00 AM EDT tablet 60 TAKE ONE TABLET BY MOUTH TWICE A DAY TAKE ONE TABLET BY MOUTH TWICE A DAY SOLD: 05/30/2021 [facility] 30 mg 01/28/2021 12:00:00 AM EDT tablet 60 TAKE ONE TABLET BY MOUTH TWICE A DAY TAKE ONE TABLET BY MOUTH TWICE A DAY SOLD: 04/28/2021 [facility] 30 mg 01/28/2021 12:00:00 AM EDT tablet 60 TAKE ONE TABLET BY MOUTH TWICE A DAY TAKE ONE TABLET BY MOUTH TWICE A DAY SOLD: 01/29/2021 [facility] 30 mg 01/28/2021 12:00:00 AM EDT tablet 60 TAKE ONE TABLET BY MOUTH TWICE A DAY TAKE ONE TABLET BY MOUTH TWICE A DAY SOLD: 03/30/2021 [facility] pregabalin 200 MG Oral Capsule [Lyrica] Lyrica 01/26/2021 12:00:0 0 AM EDT ORAL active [facility] ([facility]) 1 mg 01/20/2021 12:00:00 AM EDT tablet 60 TAKE ONE TABLET BY MOUTH TWICE A DAY, MAXIMUM DAILY DOSE = TWO TABLETS TAKE ONE TABLET BY MOUTH TWICE A DAY, MAXIMUM DAILY DOSE = TWO TABLETS SOLD: 01/21/2021 [facility] 200 mg 01/06/2021 12:00:00 AM EDT capsule 60 TAKE ONE CAPSULE BY MOUTH TWO TIMES A DAY , MAXIMUM DAILY DOSE = 2 CAPSULES TAKE ONE CAPSULE BY MOUTH TWO TIMES A DAY , MAXIMUM DAILY DOSE = 2 CAPSULES SOLD: 01/07/2021 [facility] pregabalin 200 MG Oral Capsule [Lyrica] Lyrica 01/05/2021 12:00:0 0 AM EDT ORAL completed [facility] ([facility]) 4 mg 01/05/2021 12:00:00 AM EDT tablet 30 TAKE ONE TABLET BY MOUTH ONCE DAILY TAKE ONE TABLET BY MOUTH ONCE DAILY SOLD: 01/07/2021 [facility] 800-160 mg 12/30/2020 12:00:00 AM EDT tablet 20 TAKE ONE TABLET BY MOUTH THREE TIMES A WEEK ON TUESDAY, TUESDAY AND TUESDAY TAKE ONE TABLET BY MOUTH THREE TIMES A WEEK ON TUESDAY, TUESDAY AND TUESDAY SOLD: 02/09/2021 [facility] 800-160 mg 12/30/2020 12:00:00 AM EDT tablet 20 TAKE ONE TABLET BY MOUTH THREE TIMES A WEEK ON TUESDAY, TUESDAY AND TUESDAY TAKE ONE TABLET BY MOUTH THREE TIMES A WEEK ON TUESDAY, TUESDAY AND TUESDAY SOLD: 12/31/2020 [facility] 1 mg 12/23/2020 12:00:00 AM EST tablet 180 TAKE 6 TABLETS BY MOUTH DAILY WITH BREAKFAST TAKE 6 TABLETS BY MOUTH DAILY WITH BREAKFAST SOLD: 12/26/2020 [facility] 1 mg 12/23/2020 12:00:00 AM EST tablet 180 TAKE 6 TABLETS BY MOUTH DAILY WITH BREAKFAST TAKE 6 TABLETS BY MOUTH DAILY WITH BREAKFAST SOLD: 01/26/2021 [facility] gadobutrol (GADAVIST) contrast injection 4 mL [id number] 04:15:00 PM EST 4 mL Intravenous completed 4 mL, Tavo pugh, 1 TIME IMAGING, [facility] 12/16/20 at 1615, For 1 dose, Imaging Protocol
Do not mix or administer in the same IV line with other medications.
[facility] Medication administered onsite 25 mg 12/16/2020 12:00:00 AM EST tablet 60 TAKE 1/2 TABLET IN THE MORNING , 1/2 TABLET MIDDAY AND 1 TABLET LATE EVENING TAKE 1/2 TABLET IN THE MORNING , 1/2 TABLET MIDDAY AND 1 TABLET LATE EVENING SOLD: 05/24/2021 [facility] 25 mg 12/16/2020 12:00:00 AM EST tablet 60 TAKE 1/2 TABLET IN THE MORNING , 1/2 TABLET MIDDAY AND 1 TABLET LATE EVENING TAKE 1/2 TABLET IN THE MORNING , 1/2 TABLET MIDDAY AND 1 TABLET LATE EVENING SOLD: 03/20/2021 [facility] 25 mg 12/16/2020 12:00:00 AM EST tablet 60 TAKE 1/2 TABLET IN THE MORNING , 1/2 TABLET MIDDAY AND 1 TABLET LATE EVENING TAKE 1/2 TABLET IN THE MORNING , 1/2 TABLET MIDDAY AND 1 TABLET LATE EVENING SOLD: 04/22/2021 [facility] 25 mg 12/16/2020 12:00:00 AM EST tablet 60 TAKE 1/2 TABLET IN THE MORNING , 1/2 TABLET MIDDAY AND 1 TABLET LATE EVENING TAKE 1/2 TABLET IN THE MORNING , 1/2 TABLET MIDDAY AND 1 TABLET LATE EVENING SOLD: 01/13/2021 [facility] 25 mg 12/16/2020 12:00:00 AM EST tablet 60 TAKE 1/2 TABLET IN THE MORNING , 1/2 TABLET MIDDAY AND 1 TABLET LATE EVENING TAKE 1/2 TABLET IN THE MORNING , 1/2 TABLET MIDDAY AND 1 TABLET LATE EVENING SOLD: 02/16/2021 [facility] 25 mg 12/16/2020 12:00:00 AM EST tablet 60 TAKE 1/2 TABLET IN THE MORNING , 1/2 TABLET MIDDAY AND 1 TABLET LATE EVENING TAKE 1/2 TABLET IN THE MORNING , 1/2 TABLET MIDDAY AND 1 TABLET LATE EVENING SOLD: 12/16/2020 [facility] 24 HR Bupropion Hydrochloride 150 MG Extended Release Oral T ablet BUPROPION HCL 12/12/2020 12:00:00 AM EST tablet extended release 24 hr 30 TAKE ONE TABLET BY MOUTH EVERY DAY TAKE ONE TABLET BY MOUTH EVERY DAY SOLD: 03/20/2021 [facility] 24 HR Bupropion Hydrochloride 150 MG Extended Release Oral T ablet BUPROPION HCL 12/12/2020 12:00:00 AM EST tablet extended release 24 hr 30 TAKE ONE TABLET BY MOUTH EVERY DAY TAKE ONE TABLET BY MOUTH EVERY DAY SOLD: 04/22/2021 [facility] 24 HR Bupropion Hydrochloride 150 MG Extended Release Oral T ablet BUPROPION HCL 12/12/2020 12:00:00 AM EST tablet extended release 24 hr 30 TAKE ONE TABLET BY MOUTH EVERY DAY TAKE ONE TABLET BY MOUTH EVERY DAY SOLD: 01/13/2021 [facility] 24 HR Bupropion Hydrochloride 150 MG Extended Release Oral T ablet BUPROPION HCL 12/12/2020 12:00:00 AM EST tablet extended release 24 hr 30 TAKE ONE TABLET BY MOUTH EVERY DAY TAKE ONE TABLET BY MOUTH EVERY DAY SOLD: 02/16/2021 [facility] 24 HR Bupropion Hydrochloride 150 MG Extended Release Oral T ablet BUPROPION HCL 12/12/2020 12:00:00 AM EST tablet extended release 24 hr 30 TAKE ONE TABLET BY MOUTH EVERY DAY TAKE ONE TABLET BY MOUTH EVERY DAY SOLD: 05/24/2021 [facility] 24 HR Bupropion Hydrochloride 150 MG Extended Release Oral T ablet BUPROPION HCL 12/12/2020 12:00:00 AM EST tablet extended release 24 hr 30 TAKE ONE TABLET BY MOUTH EVERY DAY TAKE ONE TABLET BY MOUTH EVERY DAY SOLD: 12/16/2020 [facility] 24 HR Bupropion Hydrochloride 150 MG Extended Release Oral T ablet BUPROPION HCL 12/12/2020 12:00:00 AM EST tablet extended release 24 hr 30 TAKE ONE TABLET BY MOUTH EVERY DAY TAKE ONE TABLET BY MOUTH EVERY DAY SOLD: 06/23/2021 [facility] 1 mg 12/10/2020 12:00:00 AM EST tablet 60 TAKE ONE TABLET BY MOUTH TWICE A DAY, MAXIMUM DAILY DOSE = TWO TABLETS TAKE ONE TABLET BY MOUTH TWICE A DAY, MAXIMUM DAILY DOSE = TWO TABLETS SOLD: 12/11/2020 [facility] 25 mcg 12/05/2020 12:00:00 AM EST tablet 90 TAKE ONE TABLET BY MOUTH EVERY MORNING TAKE ONE TABLET BY MOUTH EVERY MORNING SOLD: 12/06/2020 [facility] 20.25 mg/1.25 gram (1.62 %) 12/05/2020 12:00:00 AM EST gel in metered-dose pump 150 APPLY 4 PUMPS TO ARM AREA DAILY MAXIMUM DAILY DOSE = 4 PUMPS APPLY 4 PUMPS TO ARM AREA DAILY MAXIMUM DAILY DOSE = 4 PUMPS SOLD: 12/06/2020 [facility] 100 mg 12/01/2020 12:00:00 AM EST capsule 14 TAKE ONE CAPSULE BY MOUTH TWICE A DAY TAKE ONE CAPSULE BY MOUTH TWICE A DAY SOLD: 12/01/2020 [facility] 10 mg 11/26/2020 12:00:00 AM EST tablet 180 TAKE 4 TABLETS BY MOUTH EVERY MORNING AND 2 TABLETS BY MOUTH EVERY AFTERNOON MAXIMUM DAILY DOSE = 6 TAKE 4 TABLETS BY MOUTH EVERY MORNING AND 2 TABLETS BY MOUTH EVERY AFTERNOON MAXIMUM DAILY DOSE = 6 SOLD: 12/31/2020 [facility] 10 mg 11/26/2020 12:00:00 AM EST tablet 180 TAKE 4 TABLETS BY MOUTH EVERY MORNING AND 2 TABLETS BY MOUTH EVERY AFTERNOON MAXIMUM DAILY DOSE = 6 TAKE 4 TABLETS BY MOUTH EVERY MORNING AND 2 TABLETS BY MOUTH EVERY AFTERNOON MAXIMUM DAILY DOSE = 6 SOLD: 12/01/2020 [facility] Hydrocortisone 10 MG Oral Tablet Hydrocortisone 11/25/2020 12:00:00 A M EST active [facility] ([facility]) 5 mg 11/21/2020 12:00:00 AM EST tablet 90 TAKE ONE TABLET BY MOUTH EVERY DAY TAKE ONE TABLET BY MOUTH EVERY DAY SOLD: 11/24/2020 [facility] 5 mg 11/21/2020 12:00:00 AM EST tablet 90 TAKE ONE TABLET BY MOUTH EVERY DAY TAKE ONE TABLET BY MOUTH EVERY DAY SOLD: 02/24/2021 [facility] Magnesium Oxide 500 MG Oral Tablet Magnesium Oxide 11/04/2020 12:00 :00 AM EST active [facility] ([facility]) 4 mg 10/29/2020 12:00:00 AM EST tablet 30 TAKE ONE TABLET BY MOUTH EVERY DAY TAKE ONE TABLET BY MOUTH EVERY DAY SOLD: 10/30/2020 [facility] 1 mg 10/28/2020 12:00:00 AM EST tablet 60 TAKE ONE TABLET BY MOUTH TWICE A DAY, MAXIMUM DAILY DOSE = 2 TAKE ONE TABLET BY MOUTH TWICE A DAY, LEVON WHITING DAILY DOSE = 2 SOLD: 10/28/2020 [facility] Dexamethasone 4 MG Oral Tablet [Decadron] Decadron 10/28/2020 1 2:00:00 AM EST ORAL active [facility] ([facility]) 5 mg 10/28/2020 12:00:00 AM EST tablet 30 TAKE ONE TABLET BY MOUTH EVERY DAY TAKE ONE TABLET BY MOUTH EVERY DAY SOLD: 10/28/2020 [facility] 0.75 mg 10/27/2020 12:00:00 AM EST tablet 60 TAKE TWO TABLETS BY MOUTH DAILY FOR EXTREME HEADACHES, REPLACES CORTEF (HYDROCORTISONE) FOR THE DAY TAKE TWO TABLETS BY MOUTH DAILY FOR EXTREME HEADACHES, REPLACES CORTEF (HYDROCORTISONE) FOR THE DAY SOLD: 10/28/2020 [facility] 100 mg 10/25/2020 12:00:00 AM EST capsule 180 TAKE 3 CAPSULES BY MOUTH TWO TIMES A DAY MAXIMUM DAILY DOSE = 6 TAKE 3 CAPSULES BY MOUTH TWO TIMES A DAY MAXIMUM DAILY DOSE = 6 SOLD: 01/21/2021 [facility] 100 mg 10/25/2020 12:00:00 AM EST capsule 180 TAKE 3 CAPSULES BY MOUTH TWO TIMES A DAY MAXIMUM DAILY DOSE = 6 TAKE 3 CAPSULES BY MOUTH TWO TIMES A DAY MAXIMUM DAILY DOSE = 6 SOLD: 10/27/2020 [facility] 1 mg 10/25/2020 12:00:00 AM EST tablet 60 TAKE 1 & 1/2 TABLETS BY MOUTH TWO TIMES A DAY WITH MEAL TAKE 1 & 1/2 TABLETS BY MOUTH TWO TIMES A DAY WITH RICO L SOLD: 10/27/2020 [facility] 1 mg 10/25/2020 12:00:00 AM EST tablet 60 TAKE 1 & 1/2 TABLETS BY MOUTH TWO TIMES A DAY WITH MEAL TAKE 1 & 1/2 TABLETS BY MOUTH TWO TIMES A DAY WITH RICO L SOLD: 11/24/2020 [facility] 200 mg 10/21/2020 12:00:00 AM EST capsule 60 TAKE ONE CAPSULE BY MOUTH EVERY MORNING AND TAKE ONE CAPSULE BY MOUTH EVERY EVENING, MAXIMUM DAILY DOSE = 2 TAKE ONE CAPSULE BY MOUTH EVERY MORNING AND TAKE ONE CAPSULE BY MOUTH EVERY EVENING, MAXIMUM DAILY DOSE = 2 SOLD: 10/21/2020 [facility] 200 mg 10/21/2020 12:00:00 AM EST capsule 60 TAKE ONE CAPSULE BY MOUTH EVERY MORNING AND TAKE ONE CAPSULE BY MOUTH EVERY EVENING, MAXIMUM DAILY DOSE = 2 TAKE ONE CAPSULE BY MOUTH EVERY MORNING AND TAKE ONE CAPSULE BY MOUTH EVERY EVENING, MAXIMUM DAILY DOSE = 2 SOLD: 11/24/2020 [facility] 20.25 mg/1.25 gram (1.62 %) 10/20/2020 12:00:00 AM EST gel in metered-dose pump 150 APPLY 4 PUMPS TO ARM AREA DAILY MAXIMUM DAILY DOSE = 4 PUMPS APPLY 4 PUMPS TO ARM AREA DAILY MAXIMUM DAILY DOSE = 4 PUMPS SOLD: 10/21/2020 [facility] 100 mcg 10/01/2020 12:00:00 AM EST tablet 30 TAKE ONE TABLET BY MOUTH EVERY DAY TAKE ONE TABLET BY MOUTH EVERY DAY SOLD: 03/20/2021 [facility] 100 mcg 10/01/2020 12:00:00 AM EST tablet 30 TAKE ONE TABLET BY MOUTH EVERY DAY TAKE ONE TABLET BY MOUTH EVERY DAY SOLD: 02/09/2021 [facility] 100 mcg 10/01/2020 12:00:00 AM EST tablet 30 TAKE ONE TABLET BY MOUTH EVERY DAY TAKE ONE TABLET BY MOUTH EVERY DAY SOLD: 01/07/2021 [facility] 100 mcg 10/01/2020 12:00:00 AM EST tablet 30 TAKE ONE TABLET BY MOUTH EVERY DAY TAKE ONE TABLET BY MOUTH EVERY DAY SOLD: 12/03/2020 [facility] 100 mcg 10/01/2020 12:00:00 AM EST tablet 30 TAKE ONE TABLET BY MOUTH EVERY DAY TAKE ONE TABLET BY MOUTH EVERY DAY SOLD: 11/04/2020 [facility] 100 mcg 10/01/2020 12:00:00 AM EST tablet 30 TAKE ONE TABLET BY MOUTH EVERY DAY TAKE ONE TABLET BY MOUTH EVERY DAY SOLD: 10/02/2020 [facility] 1 mg 09/25/2020 12:00:00 AM EST tablet 60 TAKE ONE TABLET BY MOUTH TWICE A DAY MAXIMUM DAILY DOSE = TWO TABLETS TAKE ONE TABLET BY MOUTH TWICE A DAY MAXIMUM DAILY DOSE = TWO TABLETS SOLD: 09/29/2020 [facility] 0.75 mg 09/24/2020 12:00:00 AM EST tablet 30 TAKE ONE TABLET BY MOUTH EVERY DAY FOR EXTREME HEADACHES, REPLACES CORTEF FOR THE DAY TAKE ONE TABLET BY MOUTH EVERY DAY FOR EXTREME HEADACHES, REPLACES CORTEF FOR THE DAY SOLD: 09/29/2020 [facility] 5 mg 09/15/2020 12:00:00 AM EST tablet 18 TAKE TWO TABLETS BY MOUTH EVERY 6 HOURS NEEDED FOR PAIN FOR UP TO 3 DAYS, MAXIMUM DAILY DOSE = EIGHT TABLETS TAKE TWO TABLETS BY MOUTH EVERY 6 HOURS NEEDED FOR PAIN FOR UP TO 3 DAYS, MAXIMUM DAILY DOSE = EIGHT TABLETS SOLD: 09/18/2020 [facility] magnesium sulfate in dextrose 5 % infusion (premix) 1 g 0409 [id number] 09/14/2020 08:00:00 PM EST 1 g Intravenous completed 1 g, Intravenous, Administer over 60 Minutes, Once, 09/14/20 at 1999, For 1 dose [facility] Medication administered onsite sodium chloride 0.9 % bolus 1,000 mL [id number] 09/14/2020 08:00: 00 PM EST 1000 mL Intravenous completed 1,000 mL , Intravenous, Once, 09/14/20 at 1999, For 1 dose [facility] Medication administered onsite diphenhydrAMINE (BENADRYL) injection 25 mg [id number] 09/14/2020 08:00:00 PM EST 25 mg Intravenous completed 25 mg, Intravenous, Once, 09/14/20 at 1999, For 1 dose [facility] Medication administered onsite 2 ML Metoclopramide 5 MG/ML Prefilled Sy ringe metoclopramide (REGLAN) injection 10 mg metoclopramide (REGLAN) injection 10 mg 09/14/2020 08:00:[address] 10 mg Intravenous completed 10 mg, I ntravenous, Once, [place] 09/14/20 at 2000, For 1 dose [facility] Medication administered onsite 1 ML Ketorolac Tromethamine 30 MG/ML Car tridge ketorolac (TORADOL) 30 MG/ML injection 15 mg ketorolac (TORADOL) 30 MG/ML injection 15 mg 0 07:45:00 PM EST 15 mg Intravenous completed 15 mg, Intravenous, Once, [place] 09/14/20 at 2000, For 1 dose [facility] Medication administered onsite gadobutrol (GADAVIST) contrast injection 8.5 mL [id number] 09/14/2020 05:15:00 PM EST 0.1 mL/kg Intravenous completed 8.5 mL (rounded from 8.85 mL = 0.1 mL/kg 88.5 kg), Intravenous, 1 TIME IMAGING, [place] 09/14/20 at 1715, For 1 dose
Do not mix or administer in the same IV line with other medications.
[facility] Medication administered onsite morphine sulfate (PF) injection 6 mg [id number] 09/14/2020 03:30: 00 PM EST 6 mg Intravenous completed 6 mg, In travenous, Once, [place] 09/14/20 at 1530, For 1 dose [facility] Medication administered onsite NaCl infusion 0.9 % [id number] 09/14/2020 03:15:00 PM EST Intravenous active at 100 mL/hr, Intrav enous, Continuous, Starting [place] 09/14/20 at 1515, For 30 days [facility] Medication administered onsite ondansetron (ZOFRAN) injection 4 mg [id number] 09/14/2020 01:15:0 0 PM EST 4 mg Given by IV completed 4 mg, Gi sebastian by IV, Once, [place] 09/14/20 at 1315, For 1 dose [facility] Medication administered onsite morphine sulfate (PF) injection 4 mg [id number] 09/14/2020 01:00: 00 PM EST 4 mg Intravenous completed 4 mg, In travenous, Once, [place] 09/14/20 at 1300, For 1 dose [facility] Medication administered onsite Ondansetron 4 MG Oral Tablet ondansetron (ZOFRAN) tabl et 4 mg ondansetron (ZOFRAN) tablet 4 mg 09/14/2020 12:55:27 PM EST 4 mg Oral active 4 mg, Oral, Every 8 hours PRN, Nausea, Vomiting, Starting 09/14/20 at 1255, For 30 days [facility] Medication administered onsite Oxycodone Hydrochloride 5 MG Oral Tablet oxyCODONE HCl 5 MG Oral Tablet (ROXICODONE) oxyCODONE HCl 5 MG Oral Tablet (ROXICODONE) 09/14/2020 12:00:00 AM EST 10 mg Oral completed Take 2 tablets by mouth every 6 (six) hours as needed for Pain for up to 3 days, Max Daily Dose: 40 mg [facility] 10 mg 09/09/2020 12:00:00 AM EST tablet 180 TAKE 4 TABLETS BY MOUTH EVERY MORNING AND 2 TABLETS BY MOUTH EVERY AFTERNOON MAXIMUM DAILY DOSE = 6 TAKE 4 TABLETS BY MOUTH EVERY MORNING AND 2 TABLETS BY MOUTH EVERY AFTERNOON MAXIMUM DAILY DOSE = 6 SOLD: 09/18/2020 Karen fritz 10 mg 09/09/2020 12:00:00 AM EST tablet 180 TAKE 4 TABLETS BY MOUTH EVERY MORNING AND 2 TABLETS BY MOUTH EVERY AFTERNOON MAXIMUM DAILY DOSE = 6 TAKE 4 TABLETS BY MOUTH EVERY MORNING AND 2 TABLETS BY MOUTH EVERY AFTERNOON MAXIMUM DAILY DOSE = 6 SOLD: 10/27/2020 Karen fritz 25 mcg 09/08/2020 12:00:00 AM EST tablet 90 TAKE ONE TABLET BY MOUTH EVERY MORNING TAKE ONE TABLET BY MOUTH EVERY MORNING SOLD: 09/08/2020 Karen Simon 1 mg 08/22/2020 12:00:00 AM EST tablet 60 TAKE ONE TABLET BY MOUTH TWICE A DAY, MAXIMUM DAILY DOSE = TWO TABLETS TAKE ONE TABLET BY MOUTH TWICE A DAY, MAXIMUM DAILY DOSE = TWO TABLETS SOLD: 08/23/2020 Karen Simon 100 mg 08/21/2020 12:00:00 AM EST tablet extended release 24 hr 30 TAKE ONE TABLET BY MOUTH EVERY DAY TAKE ONE TABLET BY MOUTH EVERY DAY SOLD: 01/26/2021 Karen Simon 100 mg 08/21/2020 12:00:00 AM EST tablet extended release 24 hr 30 TAKE ONE TABLET BY MOUTH EVERY DAY TAKE ONE TABLET BY MOUTH EVERY DAY SOLD: 09/22/2020 [facility] 100 mg 08/21/2020 12:00:00 AM EST tablet extended release 24 hr 30 TAKE ONE TABLET BY MOUTH EVERY DAY TAKE ONE TABLET BY MOUTH EVERY DAY SOLD: 08/23/2020 [facility] 100 mg 08/21/2020 12:00:00 AM EST tablet extended release 24 hr 30 TAKE ONE TABLET BY MOUTH EVERY DAY TAKE ONE TABLET BY MOUTH EVERY DAY SOLD: 10/21/2020 [facility] 100 mg 08/21/2020 12:00:00 AM EST tablet extended release 24 hr 30 TAKE ONE TABLET BY MOUTH EVERY DAY TAKE ONE TABLET BY MOUTH EVERY DAY SOLD: 12/26/2020 [facility] 100 mg 08/21/2020 12:00:00 AM EST tablet extended release 24 hr 30 TAKE ONE TABLET BY MOUTH EVERY DAY TAKE ONE TABLET BY MOUTH EVERY DAY SOLD: 11/19/2020 [facility] 20.25 mg/1.25 gram (1.62 %) 08/14/2020 12:00:00 AM EDT gel in metered-dose pump 150 APPLY 4 PUMPS TO ARM DAILY, MAXI MUM DAILY DOSE = 4 PUMPS APPLY 4 PUMPS TO ARM DAILY, MAXIMUM DAILY DOSE = 4 PUMPS SOLD: 08/15/2020 [facility] 0.1 mg 08/04/2020 12:00:00 AM EDT tablet 180 TAKE ONE TABLET BY MOUTH TWICE A DAY TAKE ONE TABLET BY MOUTH TWICE A DAY SOLD: 08/07/2020 [facility] 0.1 mg 08/04/2020 12:00:00 AM EDT tablet 180 TAKE ONE TABLET BY MOUTH TWICE A DAY TAKE ONE TABLET BY MOUTH TWICE A DAY SOLD: 11/04/2020 [facility] 30 mg 08/01/2020 12:00:00 AM EDT tablet 60 TAKE ONE TABLET BY MOUTH TWICE A DAY TAKE ONE TABLET BY MOUTH TWICE A DAY SOLD: 11/24/2020 [facility] 30 mg 08/01/2020 12:00:00 AM EDT tablet 60 TAKE ONE TABLET BY MOUTH TWICE A DAY TAKE ONE TABLET BY MOUTH TWICE A DAY SOLD: 12/26/2020 [facility] 30 mg 08/01/2020 12:00:00 AM EDT tablet 60 TAKE ONE TABLET BY MOUTH TWICE A DAY TAKE ONE TABLET BY MOUTH TWICE A DAY SOLD: 09/29/2020 [facility] 30 mg 08/01/2020 12:00:00 AM EDT tablet 60 TAKE ONE TABLET BY MOUTH TWICE A DAY TAKE ONE TABLET BY MOUTH TWICE A DAY SOLD: 09/01/2020 [facility] 30 mg 08/01/2020 12:00:00 AM EDT tablet 60 TAKE ONE TABLET BY MOUTH TWICE A DAY TAKE ONE TABLET BY MOUTH TWICE A DAY SOLD: 10/28/2020 [facility] 30 mg 08/01/2020 12:00:00 AM EDT tablet 60 TAKE ONE TABLET BY MOUTH TWICE A DAY TAKE ONE TABLET BY MOUTH TWICE A DAY SOLD: 08/03/2020 [facility] 200 mg 07/23/2020 12:00:00 AM EDT capsule 60 TAKE 1 CAPSULE BY MOUTH EVERY MORNING & 1 EVERY EVENING MAXIMUM DAILY DOSE = 2 TAKE 1 CAPSULE BY MOUTH EVERY MORNING & 1 EVERY EVENING MAXIMUM DAILY DOSE = 2 SOLD: 07/24/2020 [facility] 200 mg 07/23/2020 12:00:00 AM EDT capsule 60 TAKE 1 CAPSULE BY MOUTH EVERY MORNING & 1 EVERY EVENING MAXIMUM DAILY DOSE = 2 TAKE 1 CAPSULE BY MOUTH EVERY MORNING & 1 EVERY EVENING MAXIMUM DAILY DOSE = 2 SOLD: 08/23/2020 [facility] 200 mg 07/23/2020 12:00:00 AM EDT capsule 60 TAKE 1 CAPSULE BY MOUTH EVERY MORNING & 1 EVERY EVENING MAXIMUM DAILY DOSE = 2 TAKE 1 CAPSULE BY MOUTH EVERY MORNING & 1 EVERY EVENING MAXIMUM DAILY DOSE = 2 SOLD: 09/22/2020 [facility] 1 mg 07/23/2020 12:00:00 AM EDT tablet 60 TAKE ONE TABLET BY MOUTH TWICE A DAY MAXIMUM DAILY DOSE = 2 TABLETS TAKE ONE TABLET BY MOUTH TWICE A DAY MAX IMUM DAILY DOSE = 2 TABLETS SOLD: 07/24/2020 [facility] 40 mg 07/22/2020 12:00:00 AM EDT capsule,delayed release (DR/EC) 180 TAKE ONE CAPSULE BY MOUTH TWICE A DAY TAKE ONE CAPSULE BY MOUTH TWICE A DAY SOLD: 10/21/2020 [facility] 40 mg 07/22/2020 12:00:00 AM EDT capsule,delayed release (DR/EC) 180 TAKE ONE CAPSULE BY MOUTH TWICE A DAY TAKE ONE CAPSULE BY MOUTH TWICE A DAY SOLD: 01/21/2021 [facility] 40 mg 07/22/2020 12:00:00 AM EDT capsule,delayed release (DR/EC) 180 TAKE ONE CAPSULE BY MOUTH TWICE A DAY TAKE ONE CAPSULE BY MOUTH TWICE A DAY SOLD: 07/24/2020 [facility] 40 mg 07/22/2020 12:00:00 AM EDT capsule,delayed release (DR/EC) 180 TAKE ONE CAPSULE BY MOUTH TWICE A DAY TAKE ONE CAPSULE BY MOUTH TWICE A DAY SOLD: 04/22/2021 [facility] 0.75 mg 07/07/2020 12:00:00 AM EDT tablet 30 TAKE ONE TABLET BY MOUTH EVERY DAY FOR EXTREME HEADACHES - REPLACES CORTEF FOR THE DAY TAKE ONE TABLET BY MOUTH EVERY DAY FOR EXTREME HEADACHES - REPLACES CORTEF FOR THE DAY SOLD: 07/07/2020 [facility] Dexamethasone 0.75 MG Oral Tablet [Decadron] Decadron 07/07/2020 12:00:00 AM EDT ORAL active [facility] ([facility] ) 100 mcg 06/11/2020 12:00:00 AM EDT tablet 30 TAKE ONE TABLET BY MOUTH EVERY DAY TAKE ONE TABLET BY MOUTH EVERY DAY SOLD: 07/10/2020 [facility] 100 mcg 06/11/2020 12:00:00 AM EDT tablet 30 TAKE ONE TABLET BY MOUTH EVERY DAY TAKE ONE TABLET BY MOUTH EVERY DAY SOLD: 06/12/2020 [facility] 10 mg 06/11/2020 12:00:00 AM EDT tablet 180 TAKE FOUR TABLETS BY MOUTH EVERY MORNING AND TWO TABLETS BY MOUTH EVERY AFTERNOON. TAKE FOUR TABLETS BY MOUTH EVERY MORNING AND TWO TABLETS BY MOUTH EVERY AFTERNOON. SOLD: 08/13/2020 [facility] 25 mg 06/11/2020 12:00:00 AM EDT tablet 60 TAKE 1/2 TABLET BY MOUTH EVERY MORNING, AND 1/2 TABLET MID-DAY AND 1 TABLET EVERY EVENING TAKE 1/2 TABLET BY MOUTH EVERY MORNING, AND 1/2 TABLET MID-DAY AND 1 TABLET EVERY EVENING SOLD: 11/19/2020 [facility] 100 mcg 06/11/2020 12:00:00 AM EDT tablet 30 TAKE ONE TABLET BY MOUTH EVERY DAY TAKE ONE TABLET BY MOUTH EVERY DAY SOLD: 08/13/2020 [facility] 100 mcg 06/11/2020 12:00:00 AM EDT tablet 30 TAKE ONE TABLET BY MOUTH EVERY DAY TAKE ONE TABLET BY MOUTH EVERY DAY SOLD: 09/08/2020 [facility] 10 mg 06/11/2020 12:00:00 AM EDT tablet 180 TAKE FOUR TABLETS BY MOUTH EVERY MORNING AND TWO TABLETS BY MOUTH EVERY AFTERNOON. TAKE FOUR TABLETS BY MOUTH EVERY MORNING AND TWO TABLETS BY MOUTH EVERY AFTERNOON. SOLD: 07/10/2020 [facility] 20.25 mg/1.25 gram (1.62 %) 06/11/2020 12:00:00 AM EDT gel in metered-dose pump 150 APPLY 4 PUMPS TO ARM AREA ONCE D AILY MAXIMUM DAILY DOSE = 4 PUMPS APPLY 4 PUMPS TO ARM AREA ONCE DAILY MAXIMUM DAILY DOSE = 4 PUMPS SOLD: 06/12/2020 [facility] 10 mg 06/11/2020 12:00:00 AM EDT tablet 180 TAKE FOUR TABLETS BY MOUTH EVERY MORNING AND TWO TABLETS BY MOUTH EVERY AFTERNOON. TAKE FOUR TABLETS BY MOUTH EVERY MORNING AND TWO TABLETS BY MOUTH EVERY AFTERNOON. SOLD: 06/12/2020 [facility] 25 mg 06/11/2020 12:00:00 AM EDT tablet 60 TAKE 1/2 TABLET BY MOUTH EVERY MORNING, AND 1/2 TABLET MID-DAY AND 1 TABLET EVERY EVENING TAKE 1/2 TABLET BY MOUTH EVERY MORNING, AND 1/2 TABLET MID-DAY AND 1 TABLET EVERY EVENING SOLD: 07/10/2020 [facility] 25 mg 06/11/2020 12:00:00 AM EDT tablet 60 TAKE 1/2 TABLET BY MOUTH EVERY MORNING, AND 1/2 TABLET MID-DAY AND 1 TABLET EVERY EVENING TAKE 1/2 TABLET BY MOUTH EVERY MORNING, AND 1/2 TABLET MID-DAY AND 1 TABLET EVERY EVENING SOLD: 10/17/2020 [facility] 25 mg 06/11/2020 12:00:00 AM EDT tablet 60 TAKE 1/2 TABLET BY MOUTH EVERY MORNING, AND 1/2 TABLET MID-DAY AND 1 TABLET EVERY EVENING TAKE 1/2 TABLET BY MOUTH EVERY MORNING, AND 1/2 TABLET MID-DAY AND 1 TABLET EVERY EVENING SOLD: 09/18/2020 [facility] 25 mg 06/11/2020 12:00:00 AM EDT tablet 60 TAKE 1/2 TABLET BY MOUTH EVERY MORNING, AND 1/2 TABLET MID-DAY AND 1 TABLET EVERY EVENING TAKE 1/2 TABLET BY MOUTH EVERY MORNING, AND 1/2 TABLET MID-DAY AND 1 TABLET EVERY EVENING SOLD: 06/12/2020 [facility] 25 mg 06/11/2020 12:00:00 AM EDT tablet 60 TAKE 1/2 TABLET BY MOUTH EVERY MORNING, AND 1/2 TABLET MID-DAY AND 1 TABLET EVERY EVENING TAKE 1/2 TABLET BY MOUTH EVERY MORNING, AND 1/2 TABLET MID-DAY AND 1 TABLET EVERY EVENING SOLD: 08/13/2020 [facility] 25 mcg 06/06/2020 12:00:00 AM EDT tablet 90 TAKE ONE TABLET BY MOUTH EVERY MORNING TAKE ONE TABLET BY MOUTH EVERY MORNING SOLD: 06/09/2020 [facility] gadobutrol (GADAVIST) contrast injection 4 mL [id number] 03:45:00 PM EDT 0.05 mL/kg Intravenous completed 4 mL (r ounded from 4.49 mL = 0.05 mL/kg 89.8 kg), Intravenous, 1 TIME IMAGING, 06/02/20 at 1545, For 1 dose
Do not mix or administer in the same IV line with other medications.
[facility] Medication administered onsite 24 HR Bupropion Hydrochloride 150 MG Extended Release Oral T ablet BUPROPION HCL 05/08/2020 12:00:00 AM EDT tablet extended release 24 hr 30 TAKE ONE TABLET BY MOUTH EVERY DAY TAKE ONE TABLET BY MOUTH EVERY DAY SOLD: 11/04/2020 [facility] 24 HR Bupropion Hydrochloride 150 MG Extended Release Oral T ablet BUPROPION HCL 05/08/2020 12:00:00 AM EDT tablet extended release 24 hr 30 TAKE ONE TABLET BY MOUTH EVERY DAY TAKE ONE TABLET BY MOUTH EVERY DAY SOLD: 10/07/2020 [facility] 24 HR Bupropion Hydrochloride 150 MG Extended Release Oral T ablet BUPROPION HCL 05/08/2020 12:00:00 AM EDT tablet extended release 24 hr 30 TAKE ONE TABLET BY MOUTH EVERY DAY TAKE ONE TABLET BY MOUTH EVERY DAY SOLD: 07/07/2020 [facility] 24 HR Bupropion Hydrochloride 150 MG Extended Release Oral T ablet BUPROPION HCL 05/08/2020 12:00:00 AM EDT tablet extended release 24 hr 30 TAKE ONE TABLET BY MOUTH EVERY DAY TAKE ONE TABLET BY MOUTH EVERY DAY SOLD: 08/07/2020 [facility] 24 HR Bupropion Hydrochloride 150 MG Extended Release Oral T ablet BUPROPION HCL 05/08/2020 12:00:00 AM EDT tablet extended release 24 hr 30 TAKE ONE TABLET BY MOUTH EVERY DAY TAKE ONE TABLET BY MOUTH EVERY DAY SOLD: 09/04/2020 [facility] 24 HR Bupropion Hydrochloride 150 MG Extended Release Oral T ablet BUPROPION HCL 05/08/2020 12:00:00 AM EDT tablet extended release 24 hr 30 TAKE ONE TABLET BY MOUTH EVERY DAY TAKE ONE TABLET BY MOUTH EVERY DAY SOLD: 06/09/2020 [facility] 100 mg 04/25/2020 12:00:00 AM EDT tablet extended release 24 hr 30 TAKE ONE TABLET BY MOUTH EVERY DAY TAKE ONE TABLET BY MOUTH EVERY DAY SOLD: 06/09/2020 [facility] 100 mg 04/25/2020 12:00:00 AM EDT tablet extended release 24 hr 30 TAKE ONE TABLET BY MOUTH EVERY DAY TAKE ONE TABLET BY MOUTH EVERY DAY SOLD: 07/24/2020 [facility] 200 mg 04/15/2020 12:00:00 AM EDT capsule 60 TAKE ONE CAPSULE BY MOUTH EVERY MORNING AND TAKE ONE CAPSULE BY MOUTH EVERY EVENING , MAXIMUM DAILY DOSE = 2 CAPSULES TAKE ONE CAPSULE BY MOUTH EVERY MORNING AND TAKE ONE CAPSULE BY MOUTH EVERY EVENING , MAXIMUM DAILY DOSE = 2 CAPSULES SOLD: 06/24/2020 [facility] atorvastatin 20 MG Oral Tablet ATORVASTATIN CALCIUM 04/08/2020 1 2:00:00 AM EDT tablet 30 TAKE ONE TABLET BY MOUTH EVERY D AY TAKE ONE TABLET BY MOUTH EVERY DAY SOLD: 10/07/2020 [facility] atorvastatin 20 MG Oral Tablet ATORVASTATIN CALCIUM 04/08/2020 1 2:00:00 AM EDT tablet 30 TAKE ONE TABLET BY MOUTH EVERY D AY TAKE ONE TABLET BY MOUTH EVERY DAY SOLD: 07/07/2020 [facility] atorvastatin 20 MG Oral Tablet ATORVASTATIN CALCIUM 04/08/2020 1 2:00:00 AM EDT tablet 30 TAKE ONE TABLET BY MOUTH EVERY D AY TAKE ONE TABLET BY MOUTH EVERY DAY SOLD: 09/04/2020 [facility] atorvastatin 20 MG Oral Tablet ATORVASTATIN CALCIUM 04/08/2020 1 2:00:00 AM EDT tablet 30 TAKE ONE TABLET BY MOUTH EVERY D AY TAKE ONE TABLET BY MOUTH EVERY DAY SOLD: 02/09/2021 [facility] atorvastatin 20 MG Oral Tablet ATORVASTATIN CALCIUM 04/08/2020 1 2:00:00 AM EDT tablet 30 TAKE ONE TABLET BY MOUTH EVERY D AY TAKE ONE TABLET BY MOUTH EVERY DAY SOLD: 08/07/2020 [facility] atorvastatin 20 MG Oral Tablet ATORVASTATIN CALCIUM 04/08/2020 1 2:00:00 AM EDT tablet 30 TAKE ONE TABLET BY MOUTH EVERY D AY TAKE ONE TABLET BY MOUTH EVERY DAY SOLD: 01/07/2021 [facility] atorvastatin 20 MG Oral Tablet ATORVASTATIN CALCIUM 04/08/2020 1 2:00:00 AM EDT tablet 30 TAKE ONE TABLET BY MOUTH EVERY D AY TAKE ONE TABLET BY MOUTH EVERY DAY SOLD: 12/03/2020 [facility] atorvastatin 20 MG Oral Tablet ATORVASTATIN CALCIUM 04/08/2020 1 2:00:00 AM EDT tablet 30 TAKE ONE TABLET BY MOUTH EVERY D AY TAKE ONE TABLET BY MOUTH EVERY DAY SOLD: 11/04/2020 [facility] 100 mg 04/02/2020 12:00:00 AM EDT tablet extended release 24 hr 30 TAKE ONE TABLET BY MOUTH ONCE DAILY MAXIMUM DAILY DOSE = 100 MG TAKE ONE TABLET BY MOUTH ONCE DAILY MAXIMUM DAILY DOSE = 100 MG SOLD: 07/01/2020 [facility] 30 mg 01/28/2020 12:00:00 AM EDT tablet 60 TAKE ONE TABLET BY MOUTH TWICE A DAY TAKE ONE TABLET BY MOUTH TWICE A DAY SOLD: 06/24/2020 [facility] 10-12.5 mg 11/02/2019 12:00:00 AM EST tablet 90 TAKE ONE TABLET BY MOUTH EVERY DAY TAKE ONE TABLET BY MOUTH EVERY DAY SOLD: 08/03/2020 [facility] Insurance Providers Payer name Policy type / Coverage type Policy ID Covered republican ID Covered republican's relationship to pearson Policy Pearson Plan Information MVP (pr) Commercial [id number] Self MVP (pr) Commercial [id number] Self [id number] MVP [id number] Self [id number] [employer] Commercial [id number] Self [id number] [employer] Healthcare Commercial [id number] [facility] [id number] [place] (pr) Medigap Part B [id number] Family Dependent [id number] [employer] (pr) Commercial [id number] Family Dependent [employer] Ppo Medigap Part B [id number] Family Dependent [place] (pr) Medigap Part B [id number] Family Dependent [id number] [employer] (pr) Commercial [id number] Family Dependent [id number] [place] Ppo Medigap Part B [id number] Family Dependent [id number] [place] Ppo Medigap Part B [id number] Family Dependent [id number] [employer] (pr) Commercial [id number] Family Dependent [id number] [place] Ppo Medigap Part B [id number] Family Dependent [id number] [employer] (pr) Medigap Part B [id number] Family Dependent [id number] [employer]/Umr (Old) Medigap Part B [id number] Family Dependent [id number] [place] (pr) Medigap Part B [id number] Family Dependent [id number] [place] (pr) Medigap Part B [id number] Family Dependent [id number] Umr [place] Ppo Medigap Part B [id number] Family Dependent [id number] [employer] (pr) Commercial [id number] Family Dependent [id number] [place] U [id number] Spouse [id number] POM[employer] [id number] WI2 [id number] UMR [facility] [id number] WI2 [id number] UMR U [id number] Spouse [id number] MEDICARE A [id number] Self [id number] UMR U [id number] Spouse [id number] UMR U [id number] Spouse [id number] Umr (pr) Commercial [id number] Self [id number] UMR U [id number] Spouse [id number] Umr (pr) Commercial [id number] Self [id number] Umr (New [place]) Commercial [id number] Family Dependent [id number] Umr (pr) Commercial [id number] Self [id number] Umr (pr) Commercial [id number] Self [id number] UMR [facility] [id number] WI2 [id number] Umr (pr) Commercial [id number] Self [id number] MEDICARE A Self O [id number] S [id number] 300 MEDICARE [id number] SP [id number] MEDICARE [id number] SP [id number] A UMR O [id number] S [id number] [facility] Part B [id number] Self [id number] BS [place] Medigap Part B [id number] Self [id number] BS [place] Medigap Part B [id number] Self [id number] BS [place] Medigap Part B [id number] Self S [id number] BS [place] Medigap Part B [id number] Self S [id number] BS [place] Medigap Part B [id number] Self S [id number] [facility] [id number] P [id number] MEDICARE [id number] SP [id number] A BS [place] Medigap Part B [id number] [id number] Self S [id number] [facility] (O) [id number] Self [id number] BS [place] Medigap Part B [id number] Self S [id number] BS [place] Medigap Part B [id number] Self OTHER WORKERS COMPENSATION [id number] SP [id number] [facility] P [id number] S [id number] [facility] O [id number] S [id number] 300 Problems, Conditions, and Diagnoses Code Display Name Description Problem Type Effective Dates Data Source(s) f/u f/u Diagnosis 09/18/2020 07:36:01 AM [facility] G93.89 Other specified disorders of brain Other specifi ed disorders of brain Diagnosis 09/14/2020 11:54:00 AM [facility] Headache;cancer patient Headache;cancer patient Diagno sis 09/14/2020 11:54:00 AM [facility] E22.1 Hyperprolactinemia Hyperprolactinemia Diagnosis 02:43:03 PM [facility] Surgeries/Procedures Procedure Description Date Indications Data Source(s) OFFICE OUTPATIENT VISIT 25 MINUTES 05/04/2021 12:00:00 AM EDT [facility] ([facility]) OFFICE OUTPATIENT VISIT 25 MINUTES 04/14/2021 12:00:00 AM EDT [facility] ([facility]) OFFICE OUTPATIENT VISIT 25 MINUTES 04/09/2021 12:00:00 AM EDT [facility] ([facility]) OFFICE OUTPATIENT VISIT 25 MINUTES 01/26/2021 12:00:00 AM EDT [facility] ([facility]) MRI ORBIT FACE & NCK W/O &W/CONTRAST MATRL <td>MR ORBI T WITH AND WITHOUT CONTRAST [id number]</td><td>Routine</td><td>09/14/2020 6:30 PM EST</td><td></td><td> </td> 09/14/2020 06:30:00 PM [facility] MRI BRAIN BRAIN STEM W/O &W/CONTRAST MATERIAL <td>MR B RAIN WITH AND WITHOUT CONTRAST [id number]</td><td>Routine</td><td>09/14/2020 6:25 PM EST</td><td></td><td> </td> 09/14/2020 06:25:00 PM [facility] CT HEAD/BRAIN W/O CONTRAST MATERIAL <td>CT HEAD WITHOU T CONTRAST [id number]</td><td>STAT</td><td>09/14/2020 1:45 PM EST</td><td></td><td> </td> 09/14/2020 01:45:21 PM [facility] SEDIMENTATION RATE RBC AUTOMATED <td>SEDIMENTATION RAT E, AUTOMATED</td><td>Routine</td><td>09/14/2020 12:55 PM EST</td><td></td><td> </td> 09/14/2020 12:55:00 PM [facility] BLOOD COUNT COMPLETE AUTO&AUTO DIFRNTL WBC COUNT <td>C BC AND DIFFERENTIAL</td><td>Routine</td><td>09/14/2020 12:55 PM EST</td><td></td><td> </td> 09/14/2020 12:55:00 PM [facility] C-REACTIVE PROTEIN <td>INFLAMMATORY C-REACTIVE PROTEIN (CRP)</td><td>Routine</td><td>09/14/2020 12:55 PM EST</td><td></td><td> </td> 09/14/2020 12:55:00 PM [facility] BASIC METABOLIC PANEL CALCIUM TOTAL <td>BASIC METABOLI C PANEL</td><td>STAT</td><td>09/14/2020 12:55 PM EST</td><td></td><td> </td> 09/14/2020 12:55:00 PM [facility] URNLS DIP STICK/TABLET REAGENT AUTO MICROSCOPY <td>URI NALYSIS WITH MICROSCOPIC</td><td>STAT</td><td>09/14/2020 12:34 PM EST</td><td></td><td> </td> 09/14/2020 12:34:00 PM [facility] Diabetic Retinal Eye Exam 09/14/2020 12:00:00 AM EST [facility] ([facility]) MRI BRAIN BRAIN STEM W/O &W/CONTRAST MATERIAL <td>MR B RAIN WITH AND WITHOUT CONTRAST [id number]</td><td>Routine</td><td>06/02/2020 4:15 PM EDT</td><td> Hyperprolactinemia</td><td> </td> 06/02/2020 04:15:40 PM EDT Hyperprolactinemia [facility] Hyperprolactinemia Results ID Date Data Source [id number] 06/29/2021 03:42:00 PM EDT [facility] ([facility]) Name Value Range Interpretation Code Description Data Danuta rce(s) Supporting Document(s) Glucose, Fasting 162 mg/dL 70-100 [facility] ([facility]) Glomerular Filtration Rate Laboratory test result [facility] ([facility]) <content>Units are mL/min/1.73 m2</content>
<content></content>
<content>Chronic Kidney Disease Staging per NKF:</content>
<content></content>
<content>Stage I & II GFR >=60 Normal to Mildly Decreased</content>
<content>Stage III GFR 30- 59 Moderately Decreased</content>
<content>Stage IV GFR 15-29 Severely Decreased</content>
<content>Stage V GFR <15 Very Little GFR Left</content>
<content>ESRD GFR <15 on HYBRID TESTER</content>
<content></content> Blood Urea Nitrogen 10 mg/dL 7-18 [facility] Creatinine For GFR 1.06 mg/dL 0.70-1.30 [facility] ([facility]) Sodium Level 142 meq/L 136-145 [facility] ([facility]) Potassium Serum 4.2 meq/L 3.5-5.1 [facility] ([facility]) Chloride Level 108 meq/L 98-107 [facility] ([facility]) Carbon Dioxide Level 28 meq/L 21-32 [facility] Anion Gap 6 meq/L 8-16 [facility] Calcium Level 8.6 mg/dL 8.8-10.2 [facility] ([facility]) ID Date Data Source [id number] 06/16/2021 03:20:00 PM EDT [facility] ([facility]) Name Value Range Interpretation Code Description Data Danuta rce(s) Supporting Document(s) White Blood Count 10.8 10 4.0-10.0 [facility] ([facility]) Hemoglobin 15.9 g/dL 13.5-17.5 [facility] ([facility]) Red Blood Count 5.44 10 4.30-6.10 [facility] ([facility]) Mean Corpuscular Volume 92.5 fl 80.0-96.0 [facility] ([facility]) Hematocrit 50.3 % 42.0-52.0 [facility] ([facility]) Mean Corpuscular Hemoglobin 29.2 pg 27.0-33.0 ME DENT ([facility]) Platelet Count, Automated 280 10 150-450 MEDE NT ([facility]) Red Cell Distribution Width 15.7 % 11.5-14.5 ME [facility] ([facility]) Mean Corpuscular HGB Conc 31.6 g/dL 32.0-36.5 MED[facility] NT ([facility]) Lymph % 17.5 % 24.0-44.0 [facility]) [place] % 5.7 % 2.0-8.0 [facility] Neutrophils % 70.6 % 36.0-66.0 [facility] ([facility]) Immature Granulocyte % 4.8 % 0-3.0 [facility] ([facility]) Eos % 0.1 % 0.0-3.0 [facility] ([facility]) Baso % 1.3 % 0.0-1.0 [facility] ([facility]) Lymph # 1.9 10 1.5-5.0 [facility] ([facility]) Neutrophils # 7.6 10 1.5-8.5 [facility] ([facility]) Nucleated Red Blood Cell % 0.0 % 0-0 MED ENT ([facility]) Preston # 0.6 10 0.0-0.8 [facility] ([facility]) Baso # 0.1 10 0.0-0.2 [facility] Eos # 0.0 10 0.0-0.5 [facility] ID Date Data Source [id number] 06/16/2021 03:20:00 PM EDT [facility] ([facility]) Name Value Range Interpretation Code Description Data Danuta rce(s) Supporting Document(s) Magnesium [Moles/volume] in Serum or Plasma 2.3 mg/dL 1.8-2.4 [facility] ([facility]) Thyroxine (T4) free [Mass/volume] in Serum or Plasma 0.84 ng/dL 0.76- 1.46 [facility] ([facility]) ID Date Data Source [id number] 06/16/2021 03:20:00 PM EDT [facility] ([facility]) Name Value Range Interpretation Code Description Data Danuta rce(s) Supporting Document(s) Blood Urea Nitrogen 13 mg/dL 7-18 [facility] ([facility]) Glucose, Fasting 116 mg/dL 70-100 [facility] ([facility]) Creatinine For GFR 1.11 mg/dL 0.70-1.30 [facility] ([facility]) Glomerular Filtration Rate Laboratory test result [facility] ([facility]) <content>Units are mL/min/1.73 m2</content>
<content></content>
<content>Chronic Kidney Disease Staging per NKF:</content>
<content></content>
<content>Stage I & II GFR >=60 Normal to Mildly Decreased</content>
<content>Stage III GFR 30- 59 Moderately Decreased</content>
<content>Stage IV GFR 15-29 Severely Decreased</content>
<content>Stage V GFR <15 Very Little GFR Left</content>
<content>ESRD GFR <15 on HYBRID TESTER</content>
<content></content> Sodium Level 138 meq/L 136-145 [facility] ([facility]) Chloride Level 105 meq/L 98-107 [facility] ([facility]) Potassium Serum 5.0 meq/L 3.5-5.1 [facility] ([facility]) Anion Gap 6 meq/L 8-16 [facility] ([facility]) Calcium Level 9.5 mg/dL 8.8-10.2 [facility] ([facility]) Carbon Dioxide Level 27 meq/L 21-32 [facility] ([facility]) Ast/Sgot 26 U/L 7-37 [facility] ([facility]) Alt/SGPT 59 U/L 12-78 [facility] ([facility]) Alkaline Phosphatase 107 U/L 45-117 [facility] Bilirubin,Total 0.4 mg/dL 0.2-1.0 [facility] ([facility]) Total Protein 6.6 GM/DL 6.4-8.2 [facility] ([facility]) Albumin 3.3 GM/DL 3.2-5.2 [facility] ([facility]) Albumin/Globulin Ratio 1.0 [facility] ([facility]) ID Date Data Source [id number] 06/02/2021 11:05:00 AM EDT [facility] ([facility] Name Value Range Interpretation Code Description Data Danuta rce(s) Supporting Document(s) Magnesium [Moles/volume] in Serum or Plasma 2.0 mg/dL 1.8-2.4 [facility] ([facility]) Thyroxine (T4) free [Mass/volume] in Serum or Plasma 0.79 ng/dL 0.76- 1.46 [facility] ([facility]) ID Date Data Source [id number] 06/02/2021 11:05:00 AM EDT [facility] ([facility] Name Value Range Interpretation Code Description Data Danuta rce(s) Supporting Document(s) Blood Urea Nitrogen 19 mg/dL 7-18 [facility] ([facility]) Glucose, Fasting 149 mg/dL 70-100 [facility] ([facility]) Creatinine For GFR 1.07 mg/dL 0.70-1.30 [facility] ([facility]) Glomerular Filtration Rate Laboratory [facility] <content>Units are mL/min/1.73 m2</content>
<content></content>
<content>Chronic Kidney Disease Staging per NKF:</content>
<content></content>
<content>Stage I & II GFR >=60 Normal to Mildly Decreased</content>
<content>Stage III GFR 30- 59 Moderately Decreased</content>
<content>Stage IV GFR 15-29 Severely Decreased</content>
<content>Stage V GFR <15 Very Little GFR Left</content>
<content>ESRD GFR <15 on HYBRID TESTER</content>
<content></content> Sodium Level 139 meq/L 136-145 [facility] ([facility]) Potassium Serum 4.4 meq/L 3.5-5.1 [facility] ([facility]) Chloride Level 106 meq/L 98-107 [facility] ([facility]) Carbon Dioxide Level 27 meq/L 21-32 [facility] ([facility] Ast/Sgot 24 U/L 7-37 [facility] ([facility]) Anion Gap 6 meq/L 8-16 [facility] ([facility]) Calcium Level 8.3 mg/dL 8.8-10.2 [facility] ([facility]) Alkaline Phosphatase 79 U/L 45-117 [facility] ([facility] Alt/SGPT 55 U/L 12-78 [facility] ([facility]) Bilirubin,Total 0.4 mg/dL 0.2-1.0 [facility] ([facility]) Total Protein 6.0 GM/DL 6.4-8.2 [facility] ([facility]) Albumin/Globulin Ratio 1.1 [facility] Albumin 3.2 GM/DL 3.2-5.2 [facility] ([facility]) ID Date Data Source [id number] 06/02/2021 11:05:00 AM EDT MED[facility] ([facility]) Name Value Range Interpretation Code Description Data Danuta rce(s) Supporting Document(s) White Blood Count 11.4 10 4.0-10.0 [facility] ([facility]) Hemoglobin 15.3 g/dL 13.5-17.5 [facility] ([facility]) Red Blood Count 5.13 10 4.30-6.10 [facility] ([facility]) Hematocrit 47.7 % 42.0-52.0 [facility] ([facility]) Mean Corpuscular HGB Conc 32.1 g/dL 32.0-36.5 MEDE NT ([facility]) Mean Corpuscular Hemoglobin 29.8 pg 27.0-33.0 ME DENT ([facility]) Mean Corpuscular Volume 93.0 fl 80.0-96.0 [facility] ([facility]) Platelet Count, Automated 234 10 150-450 MEDE NT ([facility]) Red Cell Distribution Width 15.9 % 11.5-14.5 ME DENT ([facility]) Neutrophils % 71.9 % 36.0-66.0 [facility] ([facility]) Lymph % 16.8 % 24.0-44.0 [facility] [place] % 5.7 % 2.0-8.0 [facility] ([facility]) Baso % 1.0 % 0.0-1.0 [facility] ([facility]) Eos % 0.1 % 0.0-3.0 [facility] Immature Granulocyte % 4.5 % 0-3.0 [facility] ([facility]) Nucleated Red Blood Cell % 0.2 % 0-0 MED ENT ([facility]) Neutrophils # 8.2 10 1.5-8.5 [facility] ([facility]) Lymph # 1.9 10 1.5-5.0 [facility] ([facility]) [place] # 0.7 10 0.0-0.8 [facility] ([facility]) Baso # 0.1 10 0.0-0.2 [facility] ([facility]) Eos # 0.0 10 0.0-0.5 [facility] ([facility]) ID Date Data Source [id number] 06/02/2021 11:05:00 AM EDT MED[facility] ([facility]) Name Value Range Interpretation Code Description Data Danuta rce(s) Supporting Document(s) White Blood Count 11.4 10 4.0-10.0 [facility] ([facility]) Hemoglobin 15.3 g/dL 13.5-17.5 [facility] ([facility]) Red Blood Count 5.13 10 4.30-6.10 [facility] ([facility] ) Hematocrit 47.7 % 42.0-52.0 [facility] ([facility]) Mean Corpuscular Volume 93.0 fl 80.0-96.0 M EDENT ([facility] ) Mean Corpuscular Hemoglobin 29.8 pg 27.0-33.0 [facility] ([facility] ) Red Cell Distribution Width 15.9 % 11.5-14.5 [facility] ([facility] ) Mean Corpuscular HGB Conc 32.1 g/dL 32.0-36.5 [facility] ([facility] ) Neutrophils % 71.9 % 36.0-66.0 [facility] ([facility]) Platelet Count, Automated 234 10 150-450 [facility] ([facility]) Lymph % 16.8 % 24.0-44.0 [facility] ([facility]) Preston % 5.7 % 2.0-8.0 [facility] ([facility] Eos % 0.1 % 0.0-3.0 [facility] ([facility] Immature Granulocyte % 4.5 % 0-3.0 [facility] ([facility]) Baso % 1.0 % 0.0-1.0 [facility] ([facility]) Neutrophils # 8.2 10 1.5-8.5 [facility] Nucleated Red Blood Cell % 0.2 % 0-0 MED ENT ([facility]) Lymph # 1.9 10 1.5-5.0 [facility] ([facility]) Preston # 0.7 10 0.0-0.8 [facility] ([facility]) Baso # 0.1 10 0.0-0.2 [facility] ([facility]) Eos # 0.0 10 0.0-0.5 [facility] ([facility]) ID Date Data Source [id number] 06/02/2021 11:05:00 AM EDT MED[facility] ([facility]) Name Value Range Interpretation Code Description Data Danuta rce(s) Supporting Document(s) Magnesium [Mass/volume] in Serum or Plasma 2.0 mg/dL 1.8-2.4 [facility] ([facility]) Thyroxine (T4) free [Mass/volume] in Serum or Plasma 0.79 ng/dL 0.76- 1.46 [facility] ([facility]) ID Date Data Source [id number] 06/02/2021 11:05:00 AM EDT MED[facility] ([facility]) Name Value Range Interpretation Code Description Data Danuta rce(s) Supporting Document(s) Glucose, Fasting 149 mg/dL 70-100 [facility] ([facility]) Blood Urea Nitrogen 19 mg/dL 7-18 [facility] ([facility]) Creatinine For GFR 1.07 mg/dL 0.70-1.30 [facility] ([facility]) Glomerular Filtration [facility] <content>Units are mL/min/1.73 m2</content>
<content></content>
<content>Chronic Kidney Disease Staging per NKF:</content>
<content></content>
<content>Stage I & II GFR >=60 Normal to Mildly Decreased</content>
<content>Stage III GFR 30- 59 Moderately Decreased</content>
<content>Stage IV GFR 15-29 Severely Decreased</content>
<content>Stage V GFR <15 Very Little GFR Left</content>
<content>ESRD GFR <15 on HYBRID TESTER</content>
<content></content> Sodium Level 139 meq/L 136-145 [facility] ([facility] Potassium Serum 4.4 meq/L 3.5-5.1 [facility] ([facility]) Chloride Level 106 meq/L 98-107 [facility] ([facility] Anion Gap 6 meq/L 8-16 [facility] ([facility]) Calcium Level 8.3 mg/dL 8.8-10.2 [facility] ([facility]) Carbon Dioxide Level 27 meq/L 21-32 [facility] ( [facility]) Ast/Sgot 24 U/L 7-37 [facility] ([facility]) Alt/SGPT 55 U/L 12-78 [facility] ([facility]) Total Protein 6.0 GM/DL 6.4-8.2 [facility] ([facility]) Bilirubin,Total 0.4 mg/dL 0.2-1.0 [facility] ([facility]) Alkaline Phosphatase 79 U/L 45-117 [facility] ( [facility]) Albumin 3.2 GM/DL 3.2-5.2 [facility] ([facility]) Albumin/Globulin Ratio 1.1 [facility] ([facility]) ID Date Data Source [id number] 05/19/2021 02:45:00 PM EDT MED[facility] ([facility]) Name Value Range Interpretation Code Description Data Danuta rce(s) Supporting Document(s) Magnesium [Moles/volume] in Serum or Plasma 2.2 mg/dL 1.8-2.4 [facility] ([facility]) Thyroxine (T4) free [Mass/volume] in Serum or Plasma 0.73 ng/dL 0.76- 1.46 [facility] ([facility]) ID Date Data Source [id number] 05/19/2021 02:45:00 PM EDT [facility] ([facility]) Name Value Range Interpretation Code Description Data Danuta rce(s) Supporting Document(s) Glucose, Fasting 257 mg/dL 70-100 [facility] ([facility]) Blood Urea Nitrogen 20 mg/dL 7-18 [facility] ([facility]) Creatinine For GFR 1.25 mg/dL 0.70-1.30 [facility] ([facility]) Glomerular Filtration Rate Laboratory test result [facility] ([facility]) <content>Units are mL/min/1.73 m2</content>
<content></content>
<content>Chronic Kidney Disease Staging per NKF:</content>
<content></content>
<content>Stage I & II GFR >=60 Normal to Mildly Decreased</content>
<content>Stage III GFR 30- 59 Moderately Decreased</content>
<content>Stage IV GFR 15-29 Severely Decreased</content>
<content>Stage V GFR <15 Very Little GFR Left</content>
<content>ESRD GFR <15 on HYBRID TESTER</content>
<content></content> Sodium Level 138 meq/L 136-145 [facility] ([facility]) Chloride Level 104 meq/L 98-107 [facility] ([facility]) Potassium Serum 4.6 meq/L 3.5-5.1 [facility] ([facility]) Anion Gap 10 meq/L 8-16 [facility] ([facility]) Calcium Level 8.8 mg/dL 8.8-10.2 [facility] ([facility]) Carbon Dioxide Level 24 meq/L 21-32 [facility] ([facility]) Alt/SGPT 52 U/L 12-78 [facility] ([facility]) Ast/Sgot 18 U/L 7-37 [facility] ([facility]) Alkaline Phosphatase 89 U/L 45-117 [facility] ([facility]) Total Protein 6.4 GM/DL 6.4-8.2 [facility] ([facility]) Bilirubin,Total 0.3 mg/dL 0.2-1.0 [facility] ([facility]) Albumin 3.3 GM/DL 3.2-5.2 [facility] ([facility]) Albumin/Globulin Ratio 1.1 [facility] ([facility]) ID Date Data Source [id number] 05/19/2021 02:45:00 PM EDT MED[facility] ([facility]) Name Value Range Interpretation Code Description Data Danuta rce(s) Supporting Document(s) White Blood Count 11.6 10 4.0-10.0 [facility] ([facility]) Hemoglobin 15.7 g/dL 13.5-17.5 [facility] ([facility]) Red Blood Count 5.26 10 4.30-6.10 [facility] ([facility]) Mean Corpuscular Volume 92.8 fl 80.0-96.0 [facility] ([facility]) Mean Corpuscular Hemoglobin 29.8 pg 27.0-33.0 ME DENT ([facility]) Hematocrit 48.8 % 42.0-52.0 MED[facility] ([facility]) Red Cell Distribution Width 15.9 % 11.5-14.5 ME DENT ([facility]) Mean Corpuscular HGB Conc 32.2 g/dL 32.0-36.5 MEDE NT ([facility]) Platelet Count, Automated 239 10 150-450 MEDE NT ([facility]) Lymph % 13.2 % 24.0-44.0 [facility] ([facility]) Neutrophils % 76.6 % 36.0-66.0 [facility] ([facility]) [place] % 4.0 % 2.0-8.0 [facility] Eos % 0.0 % 0.0-3.0 [facility] ([facility] Immature Granulocyte % 5.0 % 0-3.0 [facility] ([facility]) Nucleated Red Blood Cell % 0.2 % 0-0 MED ENT ([facility]) Baso % 1.2 % 0.0-1.0 [facility] ([facility]) Lymph # 1.5 10 1.5-5.0 [facility] ([facility]) Neutrophils # 8.9 10 1.5-8.5 [facility] ([facility]) Baso # 0.1 10 0.0-0.2 [facility] ([facility]) Eos # 0.0 10 0.0-0.5 [facility] ([facility]) [place] # 0.5 10 0.0-0.8 [facility] ([facility]) ID Date Data Source [id number] 04/13/2021 09:40:00 AM EDT MED[facility] ([facility]) Name Value Range Interpretation Code Description Data Danuta rce(s) Supporting Document(s) Blood Urea Nitrogen 16 mg/dL 7-18 [facility] ([facility]) Glucose, Fasting 209 mg/dL 70-100 [facility] ([facility]) Creatinine For GFR 0.67 mg/dL 0.70-1.30 [facility] ([facility]) Glomerular Filtration Rate Laboratory test result [facility] ([facility]) <content>Units are mL/min/1.73 m2</content>
<content></content>
<content>Chronic Kidney Disease Staging per NKF:</content>
<content></content>
<content>Stage I & II GFR >=60 Normal to Mildly Decreased</content>
<content>Stage III GFR 30- 59 Moderately Decreased</content>
<content>Stage IV GFR 15-29 Severely Decreased</content>
<content>Stage V GFR <15 Very Little GFR Left</content>
<content>ESRD GFR <15 on HYBRID TESTER</content>
<content></content> Potassium Serum 4.5 meq/L 3.5-5.1 [facility] ([facility]) Sodium Level 136 meq/L 136-145 [facility] ([facility]) Chloride Level 102 meq/L 98-107 [facility]) Carbon Dioxide Level 25 meq/L 21-32 [facility] ([facility]) Calcium Level 8.0 mg/dL 8.8-10.2 [facility] ([facility]) Anion Gap 9 meq/L 8-16 [facility] ([facility]) ID Date Data Source [id number] 04/13/2021 09:40:00 AM EDT MEDENT ([facility]) Name Value Range Interpretation Code Description Data Danuta rce(s) Supporting Document(s) Calcidiol [Mass/volume] in Serum or Plasma 25.6 ng/mL 30.0-100.0 [facility] ([facility]) ID Date Data Source [id number] 03/05/2021 01:49:00 PM EDT MED[facility] ([facility]) Name Value Range Interpretation Code Description Data Danuta rce(s) Supporting Document(s) Respiratory Panel Laboratory test result [facility] ([facility]) This respiratory PCR panel detects Influ evelia A H1, H3 and 2009 H1 viruses, Influenza B virus, Resp iratory Syncytial Virus, Human metapneumovirus, Parainfluenza virus 1, 2, 3 and 4, Adenovirus, Rhinovirus/Enterovirus, Coronavirus HKU1, NL63, OC43, 229E and SARS-CoV-2 (COVID 19), Bordetella pertussis, Bordetella parapertussis, Mycoplasma pneumoniae and Chlamydia pneumoniae. NEGATIVE by MULTIPLEXED NUCLEIC ACID PCR SARS-CoV-2 (COVID 19) NEGATIVE - SARS-CoV-2 (COVID19) ID Date Data Source [id number] 03/05/2021 01:49:00 PM EDT [facility] Name Value Range Interpretation Code Description Data Danuta rce(s) Supporting Document(s) SARS-CoV-2 (COVID 19) NEGATIVE - SARS-CoV-2 (COVID19) [facility] This lab was ordered by [facility] a nd reported by [facility]. ID Date Data Source [id number] 03/05/2021 01:40:00 PM EDT MED[facility] ([facility]) Name Value Range Interpretation Code Description Data Danuta rce(s) Supporting Document(s) Bedside Glucose 160 mg/dL 80-115 [facility] ([facility]) ID Date Data Source [id number] 03/05/2021 01:35:00 PM EDT MED[facility] ([facility]) Name Value Range Interpretation Code Description Data Danuta rce(s) Supporting Document(s) Hemoglobin 16.9 g/dL 13.5-17.5 [facility] ([facility] White Blood Count 10.3 10 4.0-10.0 [facility] ([facility]) Red Blood Count 5.58 10 4.30-6.10 [facility] ([facility]) Hematocrit 49.8 % 42.0-52.0 [facility] Mean Corpuscular Volume 89.2 fl 80.0-96.0 [facility] Mean Corpuscular Hemoglobin 30.3 pg 27.0-33.0 [place] [facility] ([facility]) Mean Corpuscular HGB Conc 33.9 g/dL 32.0-36.5 MEDE NT ([facility]) Platelet Count, Automated 190 10 150-450 MEDE NT ([facility]) Red Cell Distribution Width 16.1 % 11.5-14.5 [facility] ([facility]) Nucleated Red Blood Cell % 0.0 % 0-0 [facility] ([facility]) ID Date Data Source [id number] 03/05/2021 01:35:00 PM EDT MED[facility] ([facility]) Name Value Range Interpretation Code Description Data Danuta rce(s) Supporting Document(s) Neutrophils 78 % 28-66 [facility] ([facility]) Bands 3 % [facility] ([facility]) Lymphocytes 9 % 16-44 [facility] ([facility]) Monocytes 8 % 0-5 [facility] ([facility]) Atypical Lymph 1 % 0-5 [facility] ([facility]) Eosinophils 1 % 0-3 [facility] ([facility]) Anisocytosis Laboratory test [facility]) ID Date Data Source [id number] 03/05/2021 01:35:00 PM EDT MED[facility] ([facility]) Name Value Range Interpretation Code Description Data Danuta rce(s) Supporting Document(s) Platelets [#/volume] in Blood by Estimate Laboratory test result [facility] ([facility]) ID Date Data Source [id number] 03/05/2021 01:35:00 PM EDT [facility] ([facility]) Name Value Range Interpretation Code Description Data Danuta rce(s) Supporting Document(s) CPK Creatine Phosphokinase 33 U/L 39-308 [facility] ([facility]) CK-MB Value Mass Laboratory test result [facility] ([facility]) MB/CK Relative Index 3.03 [facility] ([facility]) <content>DIAGNOSIS CRITERIA</content>
<content>MMB ng/ml Relative Index (RI)</content>
<content>NON-AMI < or = 5 N/A</content>
<content>OBRIEN ZONE > 5 < or = 4</content>
<content>AMI > 5 > 4</content>
<content></content> Troponin I Laboratory test result [facility] ([facility]) <content>Troponin I Reference Interval f or Siemens [place] LOCI:</content>
<content></content>
<content>99th Percentile= 0.00-0.045 ng/ml</content>
<content></content>
<content>Risk Stratification:</content>
<content><= 0.10 ng/ml Decreased Risk for Adverse Clinical</content>
<content>Events.</content>
<content>0.10-1.50 ng/ml Increased Risk for Adverse Clinical</content>
<content>Events. Evaluation of additional</content>
<content>criterion and/or repeat testing in 2-6</content>
<content>hours is suggested to rule out myocardial</content>
<content>damage.</content>
<content>>= 1.50 ng/ml Indicative of Myocardial Injury.</content>
<content></content> ID Date Data Source [id number] 03/05/2021 01:35:00 PM EDT [facility] ([facility]) Name Value Range Interpretation Code Description Data Danuta rce(s) Supporting Document(s) Ast/Sgot 20 U/L 7-37 [facility] ([facility]) Alt/SGPT 49 U/L 12-78 [facility] Alkaline Phosphatase 88 U/L 45-117 [facility] ([facility]) Bilirubin,Total 1.0 mg/dL 0.2-1.0 [facility] ([facility]) Albumin 2.8 GM/DL 3.2-5.2 [facility] ([facility]) Bilirubin,Direct 0.4 mg/dL 0.0-0.2 [facility] ([facility]) Total Protein 5.4 GM/DL 6.4-8.2 [facility] ([facility]) Albumin/Globulin Ratio 1.1 [facility] ([facility]) ID Date Data Source [id number] 03/05/2021 01:35:00 PM EDT [facility] ([facility]) Name Value Range Interpretation Code Description Data Danuta rce(s) Supporting Document(s) Glucose, Fasting 153 mg/dL 70-100 [facility] ([facility]) Creatinine For GFR 1.11 mg/dL 0.70-1.30 [facility] ([facility]) Blood Urea Nitrogen 16 mg/dL 7-18 Significant change down [facility] ([facility]) Glomerular Filtration Rate Laboratory test result [facility] ([facility]) <content>Units are mL/min/1.73 m2</content>
<content></content>
<content>Chronic Kidney Disease Staging per NKF:</content>
<content></content>
<content>Stage I & II GFR >=60 Normal to Mildly Decreased</content>
<content>Stage III GFR 30- 59 Moderately Decreased</content>
<content>Stage IV GFR 15-29 Severely Decreased</content>
<content>Stage V GFR <15 Very Little GFR Left</content>
<content>ESRD GFR <15 on HYBRID TESTER</content>
<content></content> Sodium Level 126 meq/L 136-145 [facility] ([facility]) Potassium Serum 4.5 meq/L 3.5-5.1 [facility] ([facility]) Anion Gap 6 meq/L 8-16 [facility] ([facility]) Chloride Level 94 meq/L 98-107 [facility] ([facility]) Carbon Dioxide Level 26 meq/L 21-32 [facility] ([facility]) Calcium Level 8.3 mg/dL 8.8-10.2 [facility] ([facility]) ID Date Data Source [id number] 03/05/2021 01:35:00 PM EDT [facility] ([facility]) Name Value Range Interpretation Code Description Data Danuta rce(s) Supporting Document(s) Thyrotropin [Units/volume] in Serum or Plasma by Detec tion limit <= 0.05 mIU/L Laboratory test result 0.358-3.740 [facility] ([facility]) Thyroxine (T4) free [Mass/volume] in Serum or Plasma 0.75 ng/dL 0.76- 1.46 [facility] ([facility]) Magnesium [Moles/volume] in Serum or Plasma 2.0 mg/dL 1.8-2.4 [facility] ([facility]) Urate [Mass/volume] in Serum or Plasma 4.8 mg/dL 3.5-7.2 [facility] ([facility]) ID Date Data Source [id number] 03/04/2021 09:10:00 AM EDT [facility] ([facility]) Name Value Range Interpretation Code Description Data Danuta rce(s) Supporting Document(s) Glucose, Fasting 120 mg/dL 70-100 [facility] ([facility]) Blood Urea Nitrogen 9 mg/dL 7-18 [facility] ([facility]) Glomerular Filtration Rate Laboratory test result [facility] ([facility]) <content>Units are mL/min/1.73 m2</content>
<content></content>
<content>Chronic Kidney Disease Staging per NKF:</content>
<content></content>
<content>Stage I & II GFR >=60 Normal to Mildly Decreased</content>
<content>Stage III GFR 30- 59 Moderately Decreased</content>
<content>Stage IV GFR 15-29 Severely Decreased</content>
<content>Stage V GFR <15 Very Little GFR Left</content>
<content>ESRD GFR <15 on HYBRID TESTER</content>
<content></content> Creatinine For GFR 0.83 mg/dL 0.70-1.30 [facility] ([facility]) Chloride Level 100 meq/L 98-107 [facility] ([facility]) Potassium Serum 4.3 meq/L 3.5-5.1 Significant change down [facility] ([facility]) Sodium Level 135 meq/L 136-145 [facility] ([facility]) Anion Gap 8 meq/L 8-16 [facility] ([facility]) Carbon Dioxide Level 27 meq/L 21-32 [facility] ([facility]) Calcium Level 8.4 mg/dL 8.8-10.2 [facility] ([facility]) ID Date Data Source [id number] 03/04/2021 09:10:00 AM EDT [facility] ([facility]) Name Value Range Interpretation Code Description Data Danuta rce(s) Supporting Document(s) Magnesium [Moles/volume] in Serum or Plasma 1.7 mg/dL 1.8-2.4 [facility] ([facility]) ID Date Data Source [id number] 03/04/2021 09:10:00 AM EDT [facility] ([facility]) Name Value Range Interpretation Code Description Data Danuta rce(s) Supporting Document(s) Calcium.ionized [Mass/volume] in Serum o r Plasma by Ion-selective membrane electrode (ISE) 4.6 mg/dL 4.5-5.3 [facility] ([facility]) ID Date Data Source [id number] 03/03/2021 10:25:00 AM EDT [facility] ([facility]) Name Value Range Interpretation Code Description Data Danuta rce(s) Supporting Document(s) Magnesium [Mass/volume] in Serum or Plasma 1.7 mg/dL 1.8-2.4 [facility] ([facility] ) ID Date Data Source [id number] 03/03/2021 10:25:00 AM EDT [facility] ([facility] ) Name Value Range Interpretation Code Description Data Danuta rce(s) Supporting Document(s) Glucose, Fasting 150 mg/dL 70-100 [facility] ([facility]) Blood Urea Nitrogen 9 mg/dL 7-18 [facility] ([facility]) Glomerular Filtration Rate Laboratory test result [facility] ([facility]) <content>Units are mL/min/1.73 m2</content>
<content></content>
<content>Chronic Kidney Disease Staging per NKF:</content>
<content></content>
<content>Stage I & II GFR >=60 Normal to Mildly Decreased</content>
<content>Stage III GFR 30- 59 Moderately Decreased</content>
<content>Stage IV GFR 15-29 Severely Decreased</content>
<content>Stage V GFR <15 Very Little GFR Left</content>
<content>ESRD GFR <15 on HYBRID TESTER</content>
<content></content> Creatinine For GFR 0.85 mg/dL 0.70-1.30 [facility] ([facility]) Potassium Serum 3.5 meq/L 3.5-5.1 [facility] ([facility]) Sodium Level 138 meq/L 136-145 [facility] ([facility]) Chloride Level 104 meq/L 98-107 [facility]) Carbon Dioxide Level 27 meq/L 21-32 [facility] ([facility]) Calcium Level 7.9 mg/dL 8.8-10.2 [facility] ([facility]) Anion Gap 7 meq/L 8-16 [facility] ([facility]) ID Date Data Source [id number] 03/01/2021 12:27:00 PM EDT [facility] ([facility]) Name Value Range Interpretation Code Description Data Danuta rce(s) Supporting Document(s) Respiratory Panel Laboratory test result [facility] ([facility]) This respiratory PCR panel detects Influ evelia A H1, H3 and 2009 H1 viruses, Influenza B virus, Resp iratory Syncytial Virus, Human metapneumovirus, Parainfluenza virus 1, 2, 3 and 4, Adenovirus, Rhinovirus/Enterovirus, Coronavirus HKU1, NL63, OC43, 229E and SARS-CoV-2 (COVID 19), Bordetella pertussis, Bordetella parapertussis, Mycoplasma pneumoniae and Chlamydia pneumoniae. NEGATIVE by MULTIPLEXED NUCLEIC ACID PCR SARS-CoV-2 (COVID 19) NEGATIVE - SARS-CoV-2 (COVID19) ID Date Data Source [id number] 03/01/2021 12:27:00 PM EDT [facility] Name Value Range Interpretation Code Description Data Danuta rce(s) Supporting Document(s) SARS-CoV-2 (COVID 19) NEGATIVE - SARS-CoV-2 (COVID19) [facility] This lab was ordered by [facility] a nd reported by [facility]. ID Date Data Source [id number] 02/27/2021 12:00:00 AM EDT [facility] Name Value Range Interpretation Code Description Data Danuta rce(s) Supporting Document(s) SARS-CoV2 Rapid Antigen Negative [facility] This lab was ordered by [facility] and reported by Jayjay Saha MD. ID Date Data Source [id number] 02/23/2021 05:14:00 PM EDT [facility] ([facility]) Name Value Range Interpretation Code Description Data Danuta rce(s) Supporting Document(s) Lactate [Mass/volume] in Serum or Plasma 2.4 mmol/L 0.4-2.0 Above upper panic limits [facility] ([facility]) Y/N query for Sepsis Lactate Rule: Y ID Date Data Source [id number] 02/23/2021 05:14:00 PM EDT [facility] ([facility]) Name Value Range Interpretation Code Description Data Danuta rce(s) Supporting Document(s) Glucose, Fasting 148 mg/dL 70-100 [facility] ([facility]) Blood Urea Nitrogen 14 mg/dL 7-18 [facility] ([facility]) Creatinine For GFR 0.89 mg/dL 0.70-1.30 [facility] ([facility]) Potassium Serum 3.6 meq/L 3.5-5.1 [facility] ([facility]) Sodium Level 143 meq/L 136-145 [facility] ([facility]) Glomerular Filtration Rate Laboratory test result [facility] ([facility]) <content>Units are mL/min/1.73 m2</content>
<content></content>
<content>Chronic Kidney Disease Staging per NKF:</content>
<content></content>
<content>Stage I & II GFR >=60 Normal to Mildly Decreased</content>
<content>Stage III GFR 30- 59 Moderately Decreased</content>
<content>Stage IV GFR 15-29 Severely Decreased</content>
<content>Stage V GFR <15 Very Little GFR Left</content>
<content>ESRD GFR <15 on HYBRID TESTER</content>
<content></content> Carbon Dioxide Level 27 meq/L 21-32 [facility] ( [facility]) Chloride Level 111 meq/L 98-107 [facility] ([facility]) Calcium Level 7.4 mg/dL 8.8-10.2 [facility] ([facility]) Anion Gap 5 meq/L 8-16 [facility]) ID Date Data Source [id number] 02/23/2021 02:19:00 PM EDT [facility] Name Value Range Interpretation Code Description Data Danuta rce(s) Supporting Document(s) Blood Culture Laboratory test result [facility] ([facility]) No growth after 72 hours . All specimens observed for 5 days. Results final at that time. No growth after 48 hours . All specimens observed for 5 days. Results final at that time. No growth after 24 hours . All specimens observed for 5 days. Results final at that time. NO GROWTH AFTER 5 DAYS ID Date Data Source [id number] 02/23/2021 02:19:00 PM EDT [facility]) Name Value Range Interpretation Code Description Data Danuta rce(s) Supporting Document(s) Amphetamines Level Urine Laboratory test result [facility] ([facility]) Barbiturates Urine Laboratory test result [facility] ([facility]) Benzodiazepines Urine Laboratory test result [facility] ([facility]) Cocaine Metabolite Urine Laboratory test result [facility] ([facility]) Cannabinoids Urine Laboratory test result [facility] ([facility]) Methadone Urine Laboratory test result [facility] ([facility]) Opiates Urine Laboratory test result [facility] ([facility]) Phencyclidine Urine Laboratory test result [facility] ([facility]) ALL PRESUMPTIVE POSITIVE FINDINGS AR E UNCONFIRMED THRESHOLD IN NG/ML AMPHETAMINES/METHAMPHET 1000 BARBITURATES [...] CLOSELY RELATED COMPOUNDS PLEASE CALL THE LAB. ID Date Data Source [id number] 02/23/2021 02:19:00 PM EDT [facility]) Name Value Range Interpretation Code Description Data Danuta rce(s) Supporting Document(s) Creatinine [Mass/volume] in Urine 105.0 mg/dL [facility] Osmolality of Urine 693 MOSM/KG 50-1400 [facility] ( [facility]) Sodium [Moles/volume] in Urine 111 meq/L [facility] ([facility]) ID Date Data Source [id number] 02/23/2021 02:19:00 PM EDT [facility]) Name Value Range Interpretation Code Description Data Danuta rce(s) Supporting Document(s) Appearance, Urine RFX Laboratory test result [facility] ([facility]) Color, Urine RFX Laboratory test result [facility] Protein, Urine Auto RFX Laboratory test result [facility] PH,Urine RFX 6.0 units 5.0-9.0 [facility] Specific [place] Ur Auto RFX 1.020 1.002-1.035 [facility] Ketone, Urine Auto RFX Laboratory test result [facility] Glucose, Urine (Ua) Auto RFX Laboratory test result [facility] Nitrite, Urine Auto RFX Laboratory test result [facility] Bilirubin, Urine Auto RFX Laboratory test result [facility] ([facility]) Urobilinogen, Urine Auto RFX 0.2 mg/dL 0.0-2.0 [facility] Blood, Urine Blood RFX Laboratory test result [facility] Leukocyte Esterase Ur Auto RFX Laboratory test result [facility] ([facility]) WBC, Urine Auto RFX 1 /HPF 0-3 [facility] ([facility] Bacteria, Urine Auto RFX Laboratory test result [facility] RBC, Urine Auto RFX 10 /HPF 0-3 [facility] ([facility] Mucus, Urine RFX Laboratory test result [facility] ([facility]) Squam Epithelial Cell Ur Aurfx 0 /HPF 0-6 [facility] Hyaline Cast, Urine Auto RFX 0 /LPF 0-1 [facility] ID Date Data Source [id number] 02/23/2021 01:39:00 PM EDT [facility] ([facility] Name Value Range Interpretation Code Description Data Danuta rce(s) Supporting Document(s) Bedside Glucose 216 mg/dL 80-115 [facility] ([facility]) ID Date Data Source [id number] 02/23/2021 01:10:00 PM EDT [facility] ([facility] Name Value Range Interpretation Code Description Data Danuta rce(s) Supporting Document(s) Osmolality of Serum or Plasma 294 MOSM/KG 280-301 [facility] ([facility]) Salicylates [Mass/volume] in Serum or Plasma Laboratory test result 5.0-30.0 [facility] Ethanol [Mass/volume] in Serum or Plasma Laboratory test result 0.000 -0.010 [facility] Acetaminophen [Mass/volume] in Serum or Plasma 2.7 UG/ML 10.0-30.0 [facility] Thyroxine (T4) free [Mass/volume] in Serum or Plasma 0.88 ng/dL 0.76- 1.46 [facility] Thyrotropin [Units/volume] in Serum or Plasma by Detec tion limit <= 0.05 mIU/L Laboratory test result 0.358-3.740 [facility] ([facility]) Magnesium [Moles/volume] in Serum or Plasma 1.8 mg/dL 1.8-2.4 [facility] ([facility]) ID Date Data Source [id number] 02/23/2021 01:10:00 PM EDT [facility] ([facility]) Name Value Range Interpretation Code Description Data Danuta rce(s) Supporting Document(s) Blood Urea Nitrogen 16 mg/dL 7-18 [facility] ([facility]) Glucose, Fasting 223 mg/dL 70-100 [facility] ([facility]) Glomerular Filtration Rate Laboratory test result [facility] ([facility]) <content>Units are mL/min/1.73 m2</content>
<content></content>
<content>Chronic Kidney Disease Staging per NKF:</content>
<content></content>
<content>Stage I & II GFR >=60 Normal to Mildly Decreased</content>
<content>Stage III GFR 30- 59 Moderately Decreased</content>
<content>Stage IV GFR 15-29 Severely Decreased</content>
<content>Stage V GFR <15 Very Little GFR Left</content>
<content>ESRD GFR <15 on HYBRID TESTER</content>
<content></content> Creatinine For GFR 1.00 mg/dL 0.70-1.30 [facility] ([facility]) Potassium Serum 3.0 meq/L 3.5-5.1 [facility] ([facility]) Chloride Level 104 meq/L 98-107 [facility] ([facility]) Sodium Level 140 meq/L 136-145 [facility] ([facility]) Anion Gap 9 meq/L 8-16 [facility]) Carbon Dioxide Level 27 meq/L 21-32 [facility] ([facility]) Calcium Level 8.5 mg/dL 8.8-10.2 [facility] ([facility]) ID Date Data Source [id number] 02/23/2021 01:10:00 PM EDT [facility] ([facility]) Name Value Range Interpretation Code Description Data Danuta rce(s) Supporting Document(s) Ast/Sgot 18 U/L 7-37 [facility] ([facility]) Alt/SGPT 47 U/L 12-78 [facility] ([facility]) Alkaline Phosphatase 89 U/L 45-117 [facility] ([facility]) Bilirubin,Total 0.6 mg/dL 0.2-1.0 [facility] ([facility]) Bilirubin,Direct 0.2 mg/dL 0.0-0.2 [facility] ([facility]) Total Protein 5.5 GM/DL 6.4-8.2 [facility] ([facility]) Albumin 2.8 GM/DL 3.2-5.2 [facility] ([facility]) Albumin/Globulin Ratio 1.0 [facility] ([facility]) ID Date Data Source [id number] 02/23/2021 01:10:00 PM EDT [facility] ([facility]) Name Value Range Interpretation Code Description Data Danuta [facility](s) Supporting Document(s) CPK Creatine Phosphokinase 22 U/L 39-308 [facility] ([facility]) CK-MB Value Mass 1.2 ng/mL [facility] ([facility]) MB/CK Relative Index 5.45 [facility] ([facility]) <content>DIAGNOSIS CRITERIA</content>
<content>MMB ng/ml Relative Index (RI)</content>
<content>NON-AMI < or = 5 N/A</content>
<content>OBRIEN ZONE > 5 < or = 4</content>
<content>AMI > 5 > 4</content>
<content></content> Troponin I Laboratory test result [facility] <content>Troponin I Reference Interval f or Siemens [place] LOCI:</content>
<content></content>
<content>99th Percentile= 0.00-0.045 ng/ml</content>
<content></content>
<content>Risk Stratification:</content>
<content><= 0.10 ng/ml Decreased Risk for Adverse Clinical</content>
<content>Events.</content>
<content>0.10-1.50 ng/ml Increased Risk for Adverse Clinical</content>
<content>Events. Evaluation of additional</content>
<content>criterion and/or repeat testing in 2-6</content>
<content>hours is suggested to rule out myocardial</content>
<content>damage.</content>
<content>>= 1.50 ng/ml Indicative of Myocardial Injury.</content>
<content></content> ID Date Data Source [id number] 02/23/2021 01:10:00 PM EDT [facility] ([facility]) Name Value Range Interpretation Code Description Data Danuta rce(s) Supporting Document(s) Ammonia [Mass/volume] in Blood 26 uMOL/L [facility] ([facility]) Lactate [Mass/volume] in Serum or Plasma 3.9 mmol/L 0.4-2.0 Above upper panic limits [facility] ([facility]) Y/N query for Sepsis Lactate Rule: Y ID Date Data Source [id number] 02/23/2021 01:10:00 PM EDT [facility] ([facility]) Name Value Range Interpretation Code Description Data Danuta rce(s) Supporting Document(s) White Blood Count 8.0 10 4.0-10.0 [facility] ([facility]) Hemoglobin 15.7 g/dL 13.5-17.5 [facility] Red Blood Count 5.06 10 4.30-6.10 [facility] ([facility]) Mean Corpuscular Volume 93.1 fl 80.0-96.0 [facility] ([facility]) Hematocrit 47.1 % 42.0-52.0 [facility] Mean Corpuscular Hemoglobin 31.0 pg 27.0-33.0 [facility] ([facility]) Red Cell Distribution Width 16.3 % 11.5-14.5 [facility] ([facility]) Mean Corpuscular HGB Conc 33.3 g/dL 32.0-36.5 [facility] ([facility]) Platelet Count, Automated 160 10 150-450 [facility] ([facility]) Neutrophils % 74.6 % 36.0-66.0 [facility] ([facility]) Lymph % 14.8 % 24.0-44.0 [facility] [place] % 4.1 % 2.0-8.0 [facility] Eos % 0.0 % 0.0-3.0 [facility]) Nucleated Red Blood Cell % 0.4 % 0-0 [facility] ([facility]) Immature Granulocyte % 5.0 % 0-3.0 [facility] ([facility]) Baso % 1.5 % 0.0-1.0 [facility]) Lymph # 1.2 10 1.5-5.0 [facility]) Neutrophils # 6.0 10 1.5-8.5 [facility] ([facility]) [place] # 0.3 10 0.0-0.8 [facility]) Baso # 0.1 10 0.0-0.2 [facility]) Eos # 0.0 10 0.0-0.5 [facility] ID Date Data Source [id number] 02/23/2021 01:10:00 PM EDT [facility]) Name Value Range Interpretation Code Description Data Danuta rce(s) Supporting Document(s) Blood Culture Laboratory test result [facility] No growth after 72 hours . All specimens observed for 5 days. Results final at that time. No growth after 48 hours . All specimens observed for 5 days. Results final at that time. No growth after 24 hours . All specimens observed for 5 days. Results final at that time. NO GROWTH AFTER 5 DAYS ID Date Data Source [id number] 01/26/2021 08:51:00 AM EDT [facility]) Name Value Range Interpretation Code Description Data Danuta rce(s) Supporting Document(s) Testosterone [Mass/volume] in Serum or Plasma 201 ng/dL [id number] [facility] ([facility]) NORMAL RANGES ARE FOR ADULT FEMALES (OVE R 15 YRS) AND MALES (OVER 19 YRS). FOR PEDIATRIC RANGES PLE ASE CONSULT LITERATURE. ID Date Data Source [id number] 01/26/2021 08:50:00 AM EDT [facility] ([facility]) Name Value Range Interpretation Code Description Data Danuta rce(s) Supporting Document(s) Thyroxine (T4) free [Mass/volume] in Serum or Plasma 0.93 ng/dL 0.76- 1.46 [facility] ([facility]) ID Date Data Source [id number] 01/26/2021 08:50:00 AM EDT [facility] ([facility]) Name Value Range Interpretation Code Description Data Danuta rce(s) Supporting Document(s) Glucose mean value [Mass/volume] in Blood Estimated fr om glycated hemoglobin 140 mg/dL 60-110 [facility] ([facility] ) Hemoglobin A1c/Hemoglobin.total in Blood 6.5 % [facility] ([facility]) Lab Result Notes: Pre-Diabetes 5.7 - 6.4 % Diabetes = or > 6.5% ID Date Data Source [id number] 01/26/2021 08:50:00 AM EDT [facility] ([facility]) Name Value Range Interpretation Code Description Data Danuta rce(s) Supporting Document(s) Glucose [Mass/volume] in Serum or Plasma 248 mg/dL 74-99 [facility] ([facility]) 100-125 mg/dL PRE-DIABETES/FASTING >126 mg/dL DIABETES/FASTING Urea nitrogen [Mass/volume] in Serum or Plasma 19 mg/dL 7-18 [facility] ([facility]) Creatinine 1.1 mg/dL 0.6-1.3 [facility] Sodium [Moles/volume] in Serum or Plasma 141 meq/L 136-145 [facility] ([facility]) Potassium [Moles/volume] in Serum or Plasma 3.2 meq/L 3.5-5.1 [facility] ([facility]) Chloride [Moles/volume] in Serum or Plasma 102 meq/L 98-107 [facility] ([facility]) Calcium [Mass/volume] in Serum or Plasma 8.2 mg/dL 8.5-10.1 [facility] ([facility]) Carbon dioxide, total [Moles/volume] in Serum or Plasma 25 meq/L 21 -32 [facility] ([facility]) Alkaline phosphatase isoenzyme [Units/volume] in Serum or Pl asma 110 mg/dL 46-116 [facility] ([facility]) Total Bilirubin 0.6 mg/dL 0.2-1.0 [facility] ([facility]) Aspartate aminotransferase [Enzymatic activity/volume] in Serum or Plasma 22 U/L 15-37 [facility] ([facility] ) Albumin [Mass/volume] in Serum or Plasma 2.8 g/dL 3.4-5.0 [facility] ([facility]) Alanine aminotransferase [Enzymatic activity/volume] in Seru m or Plasma 70 U/L 12-78 [facility] ([facility]) A/G Ratio 0.93 CALC 1.00-1.90 [facility]) Proteinase 3 Ab [Units/volume] in Serum 5.8 g/dL 6.4-8.2 [facility] ([facility]) Glomerular filtration rate/1.73 sq M pre dicted among non-blacks [Volume Rate/Area] in Serum or Plasma by Creatinine-based formula (MDRD) Laboratory test result [facility] ([facility] ) Glomerular filtration rate/1.73 sq M pre dicted among blacks [Volume Rate/Area] in Serum or Plasma by Creatinine-based formula (MDRD) Laboratory test result [facility] ([facility]) <content>CHRONIC KIDNEY DISEASE STAGING PER NKF</content>
<content></content>
<content>STAGE I & II GFR >= 60 NORMAL TO MILDLY DECREASED</content>
<content>STAGE III GFR 30-59 MODERATELY DECREASED</content>
<content>STAGE IV GFR 15-29 SEVERELY DECREASED</content>
<content>STAGE V GFR <15 VERY LITTLE GFR LEFT</content>
<content>ESRD GFR <15 ON HYBRID TESTER</content>
<content></content> ID Date Data Source [id number] 01/26/2021 08:50:00 AM EDT [facility] ([facility]) Name Value Range Interpretation Code Description Data Danuta rce(s) Supporting Document(s) Erythrocytes [#/volume] in Blood by Automated count 4.97 x10*6/UL 4.2 0-6.30 [facility] ([facility]) Leukocytes [#/volume] in Blood by Automated count 13.0 x10*3/UL 4.1-1 0.9 [facility] ([facility]) NOTE: CBC VERIFIED Hematocrit [Volume Fraction] of Blood by Automated count 45.1 % 3 7.0-51.0 [facility] ([facility]) Hemoglobin [Mass/volume] in Blood 15.1 g/dL 12.0-18.0 [facility] ([facility]) MCH 30.4 pg 26.0-32.0 [facility] MCV 90.8 fL 80.0-97.0 [facility] MCHC 33.5 g/dL 31.0-38.0 [facility] Erythrocyte distribution width [Ratio] by Automated count 15.3 % 11.6-13.7 [facility] ([facility]) Platelets [#/volume] in Blood by Automated count 187 x10*3/UL 140-440 [facility] ([facility]) Lymph % 10.8 % 10.0-58.5 [facility] MPV 8.3 FL 7.8-11.0 [facility] Neut % 85.6 % 37.0-92.0 [facility] Mid % 3.6 % 1.7-9.3 [facility] Neut # 11.2 x10*3/UL 2.0-7.8 [facility] ([facility]) Mid # 0.4 x10*3/UL 0.1-0.6 [facility] ([facility]) Lymph # 1.4 x10*3/UL 0.6-4.1 [facility] ([facility]) ID Date Data Source [id number] 01/13/2021 02:50:00 PM EDT [facility] Name Value Range Interpretation Code Description Data Danuta rce(s) Supporting Document(s) SARS-CoV-2 (COVID-19) Negative [facility] This lab was ordered by [facility] [place] and reported by [facility]. ID Date Data Source [id number] 01/08/2021 03:17:00 PM EDT [facility] ([facility]) Name Value Range Interpretation Code Description Data Danuta rce(s) Supporting Document(s) Glucose, Fasting 226 mg/dL 70-100 [facility] ([facility]) Blood Urea Nitrogen 15 mg/dL 7-18 [facility] ([facility]) Glomerular Filtration Rate Laboratory test result [facility] ([facility]) <content>Units are mL/min/1.73 m2</content>
<content></content>
<content>Chronic Kidney Disease Staging per NKF:</content>
<content></content>
<content>Stage I & II GFR >=60 Normal to Mildly Decreased</content>
<content>Stage III GFR 30- 59 Moderately Decreased</content>
<content>Stage IV GFR 15-29 Severely Decreased</content>
<content>Stage V GFR <15 Very Little GFR Left</content>
<content>ESRD GFR <15 on HYBRID TESTER</content>
<content></content> Sodium Level 139 meq/L 136-145 [facility] ([facility]) Creatinine For GFR 1.09 mg/dL 0.70-1.30 [facility] ([facility]) Chloride Level 103 meq/L 98-107 [facility] ([facility]) Potassium Serum 3.8 meq/L 3.5-5.1 [facility] ([facility]) Anion Gap 6 meq/L 8-16 [facility]) Carbon Dioxide Level 30 meq/L 21-32 [facility] Calcium Level 7.9 mg/dL 8.8-10.2 [facility] ([facility]) ID Date Data Source [id number] 01/08/2021 03:17:00 PM EDT [facility] ([facility]) Name Value Range Interpretation Code Description Data Danuta rce(s) Supporting Document(s) Magnesium [Moles/volume] in Serum or Plasma 2.3 mg/dL 1.8-2.4 [facility] ([facility]) ID Date Data Source [id number] 01/08/2021 03:17:00 PM EDT [facility] ([facility] Name Value Range Interpretation Code Description Data Danuta rce(s) Supporting Document(s) Blood Urea Nitrogen 16 mg/dL 7-18 [facility] ([facility]) Creatinine For GFR 1.11 mg/dL 0.70-1.30 [facility] Glucose, Fasting 237 mg/dL 70-100 [facility] Glomerular Filtration Rate Laboratory test result [facility] <content>Units are mL/min/1.73 m2</content>
<content></content>
<content>Chronic Kidney Disease Staging per NKF:</content>
<content></content>
<content>Stage I & II GFR >=60 Normal to Mildly Decreased</content>
<content>Stage III GFR 30- 59 Moderately Decreased</content>
<content>Stage IV GFR 15-29 Severely Decreased</content>
<content>Stage V GFR <15 Very Little GFR Left</content>
<content>ESRD GFR <15 on HYBRID TESTER</content>
<content></content> Sodium Level 141 meq/L 136-145 [facility] ([facility]) Chloride Level 103 meq/L 98-107 [facility] ([facility]) Potassium Serum 3.9 meq/L 3.5-5.1 [facility] ([facility]) Carbon Dioxide Level 30 meq/L 21-32 [facility] ([facility]) Ast/Sgot 21 U/L 7-37 [facility] Anion Gap 8 meq/L 8-16 [facility] Calcium Level 8.3 mg/dL 8.8-10.2 [facility] ([facility]) Alkaline Phosphatase 126 U/L 45-117 [facility] ([facility]) Alt/SGPT 62 U/L 12-78 [facility] ([facility]) Total Protein 5.3 GM/DL 6.4-8.2 [facility] ([facility]) Bilirubin,Total 0.5 mg/dL 0.2-1.0 [facility] ([facility]) Albumin 2.6 GM/DL 3.2-5.2 [facility] ([facility]) Albumin/Globulin Ratio 1.0 [facility] ([facility]) ID Date Data Source [id number] 12/17/2020 09:08:57 AM [facility] MR BRAIN WITH AND WITHOUT CONTRAST [id number] FINAL RESULTInterpreted by:Gordon Lezama MD12/16/2020 4:12 PM MR BRAIN WITH AND WITHOUT CONTRAST [id number] CLINICAL INFORMATION: PITUITARY ADENOMA WITH EXTRASELLAR EXTENSION, 70M WITH RECURRENT PITUITARY ADENOMA, BRAIN MASS OR LESIONCOMPARISON: MRI dated 09/14/2020 PROCEDURE : Multiple MR sequences in multiple planes without and with administration of IV contrast.The amount of contrast material used was recorded in the RIS and this information can be retrieved from there.FINDINGS:Redemonstration of postsurgical changes following pituitary r esection. There is redemonstration of asymmetrical thickening and enhancement of bilateral cavernous sinuses, left greater than the right, consistent with extension of known infiltrating pituitary adenoma. Bilateral ICAs are surrounded by the tumor without significant compression. There has been interval increase in size of the left sided extension in the suprasellar direction and into the left middle cranial fossa just medial to the left temporal lobe. Compared to the prior study the left supra sellar extension measures 11 x 9 mm compared to 7 x 6 mm previously. The extension into the left middle cranial fossa medial to the medial temporal lobe now measures 13 x 11 mm compared to 8 x 11 mm previously.. The component extending into the sphenoid sinus has not significantly changed in size. There is new circumferential enhancement of the posterior aspect of the ethmoid sinuses which could be related to mucosal thickening.Heterogeneous enhancement/infiltration also extends more into the left foramen ovale, stable. There is no compression of the optic chiasm. Ventricles, sulci and basal cisterns are mildly prominent consistent with mild volume loss. There is no midline shift. There is no herniation of the cerebellar tonsils. No extra-axial fluid collection is present.The mastoid air cells are clear. There is mucosal thickening of the right maxillary sinus and ethmoid air cells..IMPRESSION: Po stsurgical changes following pituitary resection are again demonstrated. Redemonstration of residual pituitary adenoma with bilateral cavernous sinus extension. There has been interval further increase of the size of extension of the lesion into the left aspect of the suprasellar cistern and into the left middle cranial fossa as above described.There is new circumferential enhancement of the posterior aspect of the ethmoid sinuses, likely related to mucosal thickening.This document has been electronically signed by Gordon Lezama MD on 12/17/2020 9:06 AM Name Value Range Interpretation Code Description Data [facility] rce(s) Supporting Document(s) ID Date Data Source [id number] 10/31/2020 01:10:[address] [facility] ([facility]) Name Value Range Interpretation Code Description Data [facility] rce(s) Supporting Document(s) Glucose, Fasting 100 mg/dL 70-100 [facility] ([facility] ) Glomerular Filtration Rate Laboratory test result [facility] ([facility]) <content>Units are mL/min/1.73 m2</content>
<content></content>
<content>Chronic Kidney Disease Staging per NKF:</content>
<content></content>
<content>Stage I & II GFR >=60 Normal to Mildly Decreased</content>
<content>Stage III GFR 30- 59 Moderately Decreased</content>
<content>Stage IV GFR 15-29 Severely Decreased</content>
<content>Stage V GFR <15 Very Little GFR Left</content>
<content>ESRD GFR <15 on HYBRID TESTER</content>
<content></content> Blood Urea Nitrogen 29 mg/dL 7-18 [facility] ([facility]) Creatinine For GFR 1.19 mg/dL 0.70-1.30 [facility] ([facility]) Sodium Level 137 meq/L 136-145 [facility] Potassium Serum 4.2 meq/L 3.5-5.1 [facility] ([facility]) Chloride Level 100 meq/L 98-107 [facility] Carbon Dioxide Level 33 meq/L 21-32 [facility] Calcium Level 9.2 mg/dL 8.8-10.2 [facility] Anion Gap 4 meq/L 8-16 [facility] ID Date Data Source [id number] 10/31/2020 01:10:00 PM EST [facility] ([facility]) Name Value Range Interpretation Code Description Data Danuta rce(s) Supporting Document(s) Glucose, Fasting 100 mg/dL 70-100 [facility] ([facility]) Blood Urea Nitrogen 29 mg/dL 7-18 [facility] ([facility]) Creatinine For GFR 1.19 mg/dL 0.70-1.30 [facility] ([facility]) Glomerular Filtration Rate Laboratory test result [facility] ([facility]) <content>Units are mL/min/1.73 m2</content>
<content></content>
<content>Chronic Kidney Disease Staging per NKF:</content>
<content></content>
<content>Stage I & II GFR >=60 Normal to Mildly Decreased</content>
<content>Stage III GFR 30- 59 Moderately Decreased</content>
<content>Stage IV GFR 15-29 Severely Decreased</content>
<content>Stage V GFR <15 Very Little GFR Left</content>
<content>ESRD GFR <15 on HYBRID TESTER</content>
<content></content> Sodium Level 137 meq/L 136-145 [facility] ([facility]) Potassium Serum 4.2 meq/L 3.5-5.1 [facility] ([facility]) Chloride Level 100 meq/L 98-107 [facility]) Carbon Dioxide Level 33 meq/L 21-32 [facility]) Anion Gap 4 meq/L 8-16 [facility]) Calcium Level 9.2 mg/dL 8.8-10.2 [facility] ([facility]) ID Date Data Source [id number] 10/27/2020 05:18:00 AM EST [facility] Name Value Range Interpretation Code Description Data Danuta rce(s) Supporting Document(s) SARS coronavirus 2 RNA [Presence] in Res piratory specimen by YENNI with probe detection NEGATIVE [facility] This lab was ordered by [facility] a nd reported by [facility]. ID Date Data Source [id number] 10/24/2020 08:53:02 AM EST [facility] Name Value Range Interpretation Code Description Data Danuta rce(s) Supporting Document(s) Progress Note [facility] WZCLAt0gUdQAUmEo43/UENywXJQjo9MkIDbkSMl3SEyrODIvT5VhXJS7aA3xQPO8LJuOAdYsKuVbZIT3 lbm [file] 0gDQo+Bl2Uz3PgpmR3hdZjHKvkQZI8Kz6NUVZPY3LMPe== ID Date Data Source [id number] 09/25/2020 03:06:00 PM EST [facility] ([facility]) Name Value Range Interpretation Code Description Data Danuta rce(s) Supporting Document(s) Hemoglobin 17.7 g/dL 13.5-17.5 [facility] ([facility]) Red Blood Count 6.04 10 4.30-6.10 [facility] ([facility]) White Blood Count 9.6 10 4.0-10.0 [facility] ([facility]) Mean Corpuscular Volume 92.1 fl 80.0-96.0 M [facility] ([facility]) Hematocrit 55.6 % 42.0-52.0 [facility] ([facility]) Mean Corpuscular Hemoglobin 29.3 pg 27.0-33.0 [facility] ([facility]) Platelet Count, Automated 306 10 150-450 [facility] ([facility]) Mean Corpuscular HGB Conc 31.8 g/dL 32.0-36.5 [facility] ([facility]) Red Cell Distribution Width 14.8 % 11.5-14.5 [facility] ([facility]) Nucleated Red Blood Cell % 0.0 % 0-0 [facility] ([facility]) ID Date Data Source [id number] 09/25/2020 03:06:00 PM EST [facility] ([facility]) Name Value Range Interpretation Code Description Data Danuta rce(s) Supporting Document(s) Creatinine For GFR 1.27 mg/dL 0.70-1.30 [facility] ([facility]) Glucose, Fasting 141 mg/dL 70-100 [facility] ([facility]) Blood Urea Nitrogen 21 mg/dL 7-18 [facility] ([facility]) Potassium Serum 3.8 meq/L 3.5-5.1 [facility] ([facility]) Sodium Level 138 meq/L 136-145 [facility]) Glomerular Filtration Rate 59.9 [facility] ([facility]) <content>Units are mL/min/1.73 m2</content>
<content></content>
<content>Chronic Kidney Disease Staging per NKF:</content>
<content></content>
<content>Stage I & II GFR >=60 Normal to Mildly Decreased</content>
<content>Stage III GFR 30- 59 Moderately Decreased</content>
<content>Stage IV GFR 15-29 Severely Decreased</content>
<content>Stage V GFR <15 Very Little GFR Left</content>
<content>ESRD GFR <15 on HYBRID TESTER</content>
<content></content> Carbon Dioxide Level 32 meq/L 21-32 [facility] ([facility]) Anion Gap 4 meq/L 8-16 [facility] Chloride Level 102 meq/L 98-107 [facility] Calcium Level 9.2 mg/dL 8.8-10.2 [facility] ID Date Data Source [id number] 09/25/2020 03:06:00 PM EST [facility] ([facility]) Name Value Range Interpretation Code Description Data Danuta rce(s) Supporting Document(s) Testosterone [Mass/volume] in Serum or Plasma 522 ng/dL 241-827 [facility] ([facility]) NORMAL RANGES ARE FOR ADULT FEMALES (OVE R 15 YRS) AND MALES (OVER 19 YRS). FOR PEDIATRIC RANGES PLE ASE CONSULT LITERATURE. Thyroxine (T4) free [Mass/volume] in Serum or Plasma 0.90 ng/dL 0.76- 1.46 [facility] ([facility]) ID Date Data Source [id number] 09/18/2020 05:37:00 PM EST [facility] Name Value Range Interpretation Code Description Data Danuta rce(s) Supporting Document(s) Progress Note [facility] QIGKJk9pSlQHAmGq29/EEFqlTRBwq2ZoDWldQEd1ENvxLGHgO1JeEEU4bE3pBFJ1AYpMDwMoWhKqXdQt lbm [file] 5IcC0+PHBmbJr/jBBmbJr/jBBmbJr/tBJvpzS9qH4xe+lAVGfmgw/dWqNiLRcjVWC8ji8/TCX2dBe/Jose G [file] LcClVU0CRBc= ID Date Data Source [id number] 09/18/2020 02:01:31 PM [facility] Name Value Range Interpretation Code Description Data Danuta rce(s) Supporting Document(s) Consultation [facility] JAREXj5kVrLXXyRq51/KFBkdSKFbc2OwGEfeGBe3SMoeNFKsS6YpMJK4hC8gTTY1YAmTVuWhNpJfHsXa lbm [file] SwZ3UFp6IKniKWUBDj2Y ID Date Data Source [id number] 09/15/2020 06:04:04 PM [facility] Name Value Range Interpretation Code Description Data Danuta rce(s) Supporting Document(s) Consultation [facility] ZANWZh2lSfEWLbFr93/FAJhbMZIfa8OtRZecPKd2XQayMAElB7UmXCI3iG4pWTS5HDcMWdMtUgOtMSGx lbm PxFmwJIaZsZSTdPkkTCrDjZHzyByyveHKdXP9YiPG6LULvW51lUMBoIBCdL6GrSCK6HuL+Mu6NMSIbqU DpHV7IKetA1J4bw0qWLs1+aI6ESlncxzgZamrPZVda00iiutJhXawbdFoJzonoxWy1lHSU/kaAY6smeR /nyThHJL0YZs9YUjS7N+9dcZUq/tsd5lhEVSeV/V1/ 9UNLXd+rv/4QpO6dfpWfv6/aELYGNlAYCewlZ47l7kZIB4F/7fWwBYO1TKeuSlG72oMwcTf5opTsRw9Q yUs1iK+zLQXC8D1ahwuayjSN0z7NQ236Mt8/U/2h+rN9IeEsVVOS952nPKP1Ht6zZzu5Ozy1SncKdEPD dMlgLC05AjbX2l4nph+kWubQSDkfpEhfpeKWROpGL/ lArySwzNRoNYjmPRqVzw5kVFOTftlm+eWGoP0oMx1RvU0o65ti1ZV8hE8dDgxh4R3TUd1PtthaecVvOK ZOSrR8h8AZEeWsk/uTh1laDVz0Wfs5gI3mqTUrp+8y+sItmAlY3gZFBmMXZVnyYw0WGFodOS261FlPIc Q5FX/zLhvCEXw5mklqlYFH+IwhSYdlFftpjEtZh32g GUOcjZBgDOjEudClhIXOJCr0wUPwmdmmiek0jj0VBRS9P7ah6fWfqdtedmFONIe2s6A9Ewp72RgR1/WK OpB3UzxCChp3zsH+YXXIU2ybIe8w3zXj75GBtvH7LqayAeEamtDbsyx2vEYcTfxs706j9uSvf6n8WAD7 tj0ltaELfzlEeYqNO4kpuUI3ufdISI0Ksfw4qbIUzy 6Ot7nlQlEJKMNv5uwxUtox9gMyu0+D27gciVNomOJpEYXaphf6s81sN8hjBnRtgfdXuUnBW/4jiB6OkG LuXAztQEKhELtQgjFJbfq575wTKQsCRQu+a5SayX+q4UR/wVQ3ob3ZUDwnxQ6hqCNSIQ0lJ/XOPkegsZ 4f2URIAwfuNUE25ljjeCx8RSsuYeZd+7+sit82qTv3 qsW6D5BlPnPW1hqOAdz/ljF4c3PtlK/wysrwj6hGLtZPwgwaDmhQ8ToW8gndMZidap5ShtLqmeAA3+wl 0kERaVIT4pOSgZx2Ys3bCYdbIYRC8AZMJ9tPMj9OubvstKJJzMypUk/6HRXyaNWVm203h5YBQSAzb68t rwJsYCMPyNRwDEgBMQuiyaRnxtXzzXCjqJ/FGzqWlW p7qpSoTa4XeLB6Ob/cwL9Mk/i8jdlzMk+gml0JtuOm3HXqrPu2Eohywwh2eCTn0LEFxJwRt0zuQ2KajH DyzJzoslbtkyJpJ1eXcynWzhj6Ety4ZiWugurIRHjwTjXt8AHtVRmKCt7Hfqh94OadKZsuEeF/oQOOmy A8rmDaV90w2CyMOdtkDdjDZU1y77Mu9SSD1QYt/SV6 XtsxKH8kxKCdezKwaWN713+wsW1sUatWeVlgrKRNOgJgK2AyaXH7p9ZarNbftK3xXO3H/M44SA6Vp/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 [file] AgICAgICAgICAgICAgICAgICAgICAgICAgICAgICAgICAgICAgICAgICAgICAgICAgICAgICAgICAgIC AgICAgICAgICAgICAgICAgICAgICAgICAgDQogICAgICAgICAgICAgICAgICAgICAgICAgICAgICAgIC AgICAgICAgICAgICAgICAgICAgICAgICAgICAgICAg ICAgICAgICAgICAgICAgICAgICAgICAgICAgICAgICAgICAgDQogICAgICAgICAgICAgICAgICAgICAg ICAgICAgICAgICAgICAgICAgICAgICAgICAgICAgICAgICAgICAgICAgICAgICAgICAgICAgICAgICAg ICAgICAgICAgICAgICAgICAgDQogICAgICAgICAgIC AgICAgICAgICAgICAgICAgICAgICAgICAgICAgICAgICAgICAgICAgICAgICAgICAgICAgICAgICAgIC AgICAgICAgICAgICAgICAgICAgICAgICAgICAgDQogICAgICAgICAgICAgICAgICAgICAgICAgICAgIC AgICAgICAgICAgICAgICAgICAgICAgICAgICAgICAg ICAgICAgICAgICAgICAgICAgICAgICAgICAgICAgICAgICAgICAgDQogICAgICAgICAgICAgICAgICAg ICAgICAgICAgICAgICAgICAgICAgICAgICAgICAgICAgICAgICAgICAgICAgICAgICAgICAgICAgICAg ICAgICAgICAgICAgICAgICAgICAgDQogICAgICAgIC AgICAgICAgICAgICAgICAgICAgICAgICAgICAgICAgICAgICAgICAgICAgICAgICAgICAgICAgICAgIC AgICAgICAgICAgICAgICAgICAgICAgICAgICAgICAgDQogICAgICAgICAgICAgICAgICAgICAgICAgIC AgICAgICAgICAgICAgICAgICAgICAgICAgICAgICAg ICAgICAgICAgICAgICAgICAgICAgICAgICAgICAgICAgICAgICAgICAgDQogICAgICAgICAgICAgICAg ICAgICAgICAgICAgICAgICAgICAgICAgICAgICAgICAgICAgICAgICAgICAgICAgICAgICAgICAgICAg ICAgICAgICAgICAgICAgICAgICAgICAgDQogICAgIC AgICAgICAgICAgICAgICAgICAgICAgICAgICAgICAgICAgICAgICAgICAgICAgICAgICAgICAgICAgIC BvJECrSNGhOQGcSYGhNCKhISWqQOOrLQPbSFTlAESlUCRtJEz4Z9stMIFpFHJzLW2yQUg8Dz0+DQoNCm EeAET0cvCugL1UYD1ke6DdWAomBCOgb4FdCJv9DO0Y UNGrWKgsBJ3PXAielb1XAXJjYBUzaNLJd0hzDlEcQND4SEFpElfpFD3OSAWbN7wzuhFiLLAzGJJQKXsr UJGXWFftLPRDDUCoOQWwBuUkZvAuDRNbXV4QECJbC038usXfYR8IDz7VEqYaPR7pbo1KEmGiHOCmLoaA Rku8NSyxPU9HaIPdzXQsKBZsBSPIKqEuQ3uwz5ZzGb IwIPXWETteQG1Ov2HqdSPnEQh+Bp2ARJ0jk0EzOBnzNCDiRS2own4UYLqLRmYgJ6QyuIbbRYRxtiO6sO ToDBX0AAVjvOwqqWLYddqdgI9owFOimLx5FHBZNQThkQIqSP6lMG0kNJBpUHOxPgN2BZEDLK1CNHDcWL DuvSWaMESnBEWUOG2XPPvhJVU0BJByckAsmCNaBLkk PY3HCLGnguPcEiRxGUWSTQn+Ww0PGL4sb0NjUIypAUGvMV8yqn0TAMzFHbXrC2J9vBAnL2N2AUbxBj5K NPHgLXMvIsScALIIMIxbVF3EOF2tpyC9LE9AxHMaMUSkUMKmsHZpMKe8F97jkIQyMGbeHR5MNKF+Ronny+ Hb4FKIJrTFBxKIEkSsErNNSCRxQyJ9WfK3QFm5KaS3 SsBH69dVohunNqHLziTK6QPY1aSTPhIIETTD1OcVEsoK0mthCbAxUrAROWLwPqM88waXPcBHTfPUEhWV AfDf1XDNJkE0XcudLvcZexjiNvBJTbCDRKPL3BIHqnvlWluXVhgGssWL96uVivFX1VGq0IHrToZS8pbg 9LnWSdCt4NVMPsCe7BXOTuXONfKDFuHYG8KIZkEdVo RYirSWUeGAIdTFB4SSWjDMZsYW8BSaSmRPWfZuN0MXnmXTDvVVClaf6YVWDnRQDlOtCrGQBwZIAxKEUo LTohTGQuNAFoXNX9WOJrILFoLL6CUlZnTJPvEFLsSGLjOSCpDAIxht5PQDLkGPNvKZGsAdKiCGMtBGJy RPzmLLTzZQF1EzN3WSAuPXHuKF4ERnXsLSLpGJT9Pg InNNHgRYUzbg8KPTOwDOMzZGWbVDHiOCTmYHYwHOhyHEGmOND7ZIO5HUMvQEKiHS0UOsOfHBBjCWT1NH plZZMjXVQrbb2BNFXuXZTkRQp6QTOxCBUkSQEtENbbHEZxUGGlArynDNZhVMMqEU2WPrNwPOHlQRF3CC ioXQCqNBOefp3PMSUrSMRyOer4UQWxPEYdHQRpZDep EGWuXFN3QAB5VLVjQBGhDA9FRoCuIEMhZDDcCyivRGKpFOTjnv1XDLSbUSKuPOU9TOPyXVMkHSTuUCxv FYDuECC2ROHbAHJdHBBwNX2YBiQcLPVrGAI3NMznAYDdJSOfhi1OCMCxPXGpIrA1PGYzNGOaZTCzTMel GSNhYDE2UQX2TWVsMHGqDN3LYgGoWLRhYIabUemjVU LbKMKxrn1SJGOjFONlFMVmRpFeBMIaQHCkABriJWWuUVJ1BlIfZMRiNIUpML6SGiUmXUTjKks1XDCuQY JiYEBhxj7LXEYzHZAlMHG3STGhSZVdQVRkJCweJLNuJLA7RaR8WMUtRRUdQV5WEqKiYWUpJbKcZrtzDJ VrAEGpwm3SYNLyBBHuFAA1QcRyIFHrYFFhAZsaUQMb SUTcDsY0PQXsBSEuST9TKuXiLHGrLwTdWvbpVXTjTGWqyj3RORZiNSRsVwEuKiShZAPbZGToNLocDWQs EYNfZxJsDBChEKTuXQ4MKsEpFWZtDgJ6AWPuNLIwYQGouq8QpKRxyNfruz2ZOPzCKy3JpAppNDO3XHuh Bu3qsPRpVHRoIKKNXp0WgrZsJSOrESMCTPtpZDKmAV SfOZM6XnFqPcN0WRRaQXtjWBZ6CTWlRkMfHUWwRDk7HwU8LwPdEcwrFCBtBOYjGMVdCICbHxRwLdKfPL RhZmMwODc+RJ5oWGg+Yh2Zf3OpmnD4pvFcNLoiPxj6At2YNPQBD0JJJj== ID Date Data Source [id number] 09/14/2020 11:39:44 PM EST [facility] Name Value Range Interpretation Code Description Data Danuta rce(s) Supporting Document(s) ED Provider Note [facility] [id number] lbm [file] [id number]= ID Date Data Source [id number] 09/14/2020 08:12:39 PM [facility] MR BRAIN WITH AND WITHOUT CONTRAST [id number] FINAL RESULTInterpreted by:Zully Hauser DOINDICATION: known pituitary adenoma.TECHNIQUE: Multiplanar multisequence MR images of the brain and orbit were obtained with and without intravenous contrast.COMPARISON: MR brain dated 06/02/2020. Additional MR brain dating back to 09/19/2019.FINDINGS: There are postsurgical changes following pituitary resection. There is redemonstration of asymmetrical thickening and enhancement of bilateral cavernous sinuses, left greater than the right, consistent with extension of known infiltrating pituitary adenoma. Bilateral ICAs are surrounded by the tumor without significant compression. There has been mild interval increase in size of the left cavernous infiltration as compared to prior study. There is a component extending into the sphenoid sinus which measures 1.1 x 1.0 x 1.0 cm (AP x TV x CC) , previously measuring 0.7 x 0.6 x 0.7 cm (AP x TV x CC). Heterogeneous enhancement/infiltration also extends more into the left foramen ovale. There is focal area of enhancement of the left oculomotor nerve best appreciated on image 136 in series 165. There appears to be a diffuse enhancement of the left 4th cranial nerve as well. Component of the mass also extends into the left suprasellar cistern measuring 1.0 x 0.9 x 0.8 cm, previously measuring 0.9 x 0.7 x 0.4 cm (AP x TV x CC). There is no compression of the optic chiasm. The optic nerves are preserved bilaterally. The pituitary stalk, however, is not clearly visualized.Normal obrien-white matter differentiation is maintained. There is no significant diffusion restricted abnormality. No evidence of susceptibility artifact. No abnormal extraaxial collections. The brain parenchyma per se shows no abnormal signal characteristics. Mild generalized cerebral volume loss with commensurate enlargement of the ventricles. Basal cisterns are patent. Midline structures including the corpus callosum and cerebellar tonsils are normal. Flow voids of the major intracranial arteries are normal. Postsurgical changes are present within the posterior nasal cavity. Minimal mucosal thickening of the ethmoid air cells. Small mucous retention cyst within the right maxillary sinus. The mastoid air cells are clear bilaterally. IMPRESSION:1. Mild interval increase in size of the infiltrative known pituitary adenoma. Now extending more into the sphenoid sinus and into the suprasellar cistern. Infiltration of the left foramen ovale is also more prominent.2. Focal enhancement of the oculomotor nerve and diffuse enhancement of the left 4th cranial nerve which could be secon jenny to infiltration versus inflammatory process.This document has been electronically signed by Erika Keyes MD on 09/14/2020 8:10 PM Name Value Range Interpretation Code Description Data Danuta rce(s) Supporting Document(s) ID Date Data Source [id number] 09/14/2020 08:12:39 PM [facility] MR ORBIT WITH AND WITHOUT CONTRAST [id number] FINAL RESULTInterpreted by:Zully Hauser, DOINDICATION: known pituitary adenoma.TECHNIQUE: Multiplanar multisequence MR images of the brain and orbit were obtained with and without intravenous contrast.COMPARISON: MR brain dated 06/02/2020. Additional MR brain dating back to 09/19/2019.FINDINGS: There are postsurgical changes following pituitary resection. There is redemonstration of asymmetrical thickening and enhancement of bilateral cavernous sinuses, left greater than the right, consistent with extension of known infiltrating pituitary adenoma. Bilateral ICAs are surrounded by the tumor without significant compression. There has been mild interval increase in size of the left cavernous infiltration as compared to prior study. There is a component extending into the sphenoid sinus which measures 1.1 x 1.0 x 1.0 cm (AP x TV x CC) , previously measuring 0.7 x 0.6 x 0.7 cm (AP x TV x CC). Heterogeneous enhancement/infiltration also extends more into the left foramen ovale. There is focal area of enhancement of the left oculomotor nerve best appreciated on image 136 in series 165. There appears to be a diffuse enhancement of the left 4th cranial nerve as well. Component of the mass also extends into the left suprasellar cistern measuring 1.0 x 0.9 x 0.8 cm, previously measuring 0.9 x 0.7 x 0.4 cm (AP x TV x CC). There is no compression of the optic chiasm. The optic nerves are preserved bilaterally. The pituitary stalk, however, is not clearly visualized.Normal obrien-white matter differentiation is maintained. There is no significant diffusion restricted abnormality. No evidence of susceptibility artifact. No abnormal extraaxial collections. The brain parenchyma per se shows no abnormal signal characteristics. Mild generalized cerebral volume loss with commensurate enlargement of the ventricles. Basal cisterns are patent. Midline structures including the corpus callosum and cerebellar tonsils are normal. Flow voids of the major intracranial arteries are normal. Postsurgical changes are present within the posterior nasal cavity. Minimal mucosal thickening of the ethmoid air cells. Small mucous retention cyst within the right maxillary sinus. The mastoid air cells are clear bilaterally. IMPRESSION:1. Mild interval increase in size of the infiltrative known pituitary adenoma. Now extending more into the sphenoid sinus and into the suprasellar cistern. Infiltration of the left foramen ovale is also more prominent.2. Focal enhancement of the oculomotor nerve and diffuse enhancement of the left 4th cranial nerve which could be secon jenny to infiltration versus inflammatory process.This document has been electronically signed by Erika Keyes MD on 09/14/2020 8:10 PM Name Value Range Interpretation Code Description Data Danuta rce(s) Supporting Document(s) ID Date Data Source [id number] 09/14/2020 06:08:58 PM EST [facility] Name Value Range Interpretation Code Description Data Danuta rce(s) Supporting Document(s) ED Provider Note [facility] [id number] lbm [file] [id number]/Product Promoter Sales 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 Coronal and sagittal reformatted images were also obtained. Automated dose lowering techniques and/or adjustment according to patient size were utilized for this exam.COMPARISON: CT head dated 11/08/2019.FINDINGS: Ill-defined very small hypoattenuation within the periventricular and subcortical white matter consistent with chronic small vessel ischemic disease. No acute intracranial hemorrhage or acute major arterial territorial infarction is evident. There is cerebral volume loss with commensurate dilation of the ventricles. No mass effect or midline shift is appreciated. The basal cisterns are patent. No extra-axial fluid collections are identified. No depressed calvarial fracture. Postsurgical changes are present within the posterior nasal cavity and sphenoid sinus extending to the sella turcica there is been interval development of a small mucosal retention cyst within the left sphenoid and right maxillary sinuses. The visualized paranasal sinuses and mastoid air cells are clear. IMPRESSION: 1. No acute intracranial process.2. Minimal chronic microvascular ischemic changes of the white matter.3. Small retention cyst within the left sphenoid and right maxillary sinuses.This document has been electronically signed by Erika Keyes MD on 09/14/2020 2:12 PM Name Value Range Interpretation Code Description Data Danuta rce(s) Supporting Document(s) ID Date Data Source [id number] 09/14/2020 01:24:04 PM [facility] Name Value Range Interpretation Code Description Data Danuta rce(s) Supporting Document(s) Leukocytes [#/volume] in Blood by Automated count 8.6 10*3/uL 4-10 [facility] Erythrocytes [#/volume] in Blood by Automated count 5.26 10*6/uL 4.6- 6.1 [facility] Hemoglobin [Mass/volume] in Blood 15.8 g/dL 13.5-18 [facility] Hematocrit [Volume Fraction] of Blood by Automated count 46.7 % 4 1-53 [facility] Erythrocyte mean corpuscular volume [Entitic volume] by Auto mated count 88.8 fL 80-96 [facility] Erythrocyte mean corpuscular hemoglobin [Entitic mass] by Automated count 30.0 pg 27-33 [facility] Erythrocyte mean corpuscular hemoglobin concentration [Mass/volume] by Autom[facility] 33.8 g[facility] width [Ratio] by Automated count 15.0 % 11.5-14.5 H [facility] Platelets [#/volume] in Blood by Automated count 231 10*3/uL 150-400 [facility] Differential cell count method - Blood [facility] Neutrophils/100 leukocytes in Blood by Automated count 78 % [facility] Lymphocytes/100 leukocytes in Blood by Automated count 17 % [facility] Monocytes/100 leukocytes in Blood by Automated count 5 % [facility] Eosinophils/100 leukocytes in Blood by Automated count 0 % [facility] Basophils/100 leukocytes in Blood by Automated count 0 % [facility] Neutrophils [#/volume] in Blood by Automated count 6.67 10*3/uL 1.8-7 .0 [facility] Lymphocytes [#/volume] in Blood by Automated count 1.41 10*3/uL 1.2-4 .0 [facility] Monocytes [#/volume] in Blood by Automated count 0.43 10*3/uL 0-0.8 [facility] Eosinophils [#/volume] in Blood by Automated count 0.02 10*3/uL 0-0.5 [facility] Basophils [#/volume] in Blood by Automated count 0.03 10*3/uL 0-0.2 [facility] Nucleated erythrocytes/100 leukocytes [Ratio] in Blood by Automated count 0 /100{WBCs} 0-0 [facility] ID Date Data Source [id number] 09/14/2020 01:38:19 PM [facility] Name Value Range Interpretation Code Description Data Danuta rce(s) Supporting Document(s) Bicarbonate [Moles/volume] in Serum 27 mmol/L -29 [facility] Chloride [Moles/volume] in Serum or Plasma 106 mmol/L 98-107 [facility] Creatinine [Mass/volume] in Serum or Plasma 1.01 mg/dL 0.70-1.20 [facility] Glucose [Mass/volume] in Serum or Plasma 100 mg/dL 70-140 [facility] Potassium [Moles/volume] in Serum or Plasma 3.6 mmol/L 3.4-5.1 [facility] Sodium [Moles/volume] in Serum or Plasma 144 mmol/L 136-145 [facility] Urea nitrogen [Mass/volume] in Serum or Plasma 16 mg/dL 8-23 [facility] Anion gap 3 in Serum or Plasma 11 mmol/L 8-15 [facility] Osmolality of Serum or Plasma by calculation 299 mosm/kg 275-300 [facility] Creatinine/Urea nitrogen [Mass Ratio] in Serum or Plasma 16 [facility] Calcium [Mass/volume] in Serum or Plasma 8.8 mg/dL 8.8-10.2 [facility] Glomerular filtration rate/1.73 sq M pre dicted among non-blacks [Volume Rate/Area] in Serum or Plasma by Creatinine-based formula (MDRD) 74 mL/min/1.73m2 >60 [facility] Glomerular filtration rate/1.73 sq M pre dicted among blacks [Volume Rate/Area] in Serum or Plasma by Creatinine-based formula (MDRD) 86 mL/min/1.73m2 >60 [facility] ID Date Data Source [id number] 09/14/2020 04:55:40 PM [facility] Name Value Range Interpretation Code Description Data Danuta rce(s) Supporting Document(s) C reactive protein [Mass/volume] in Serum or Plasma 14.7 mg/L <8.0 H [facility] ID Date Data Source [id number] 09/14/2020 05:11:[address] [facility] Value Range Interpretation Code Description Data Danuta rce(s) Supporting Document(s) Erythrocyte sedimentation rate 16 mm/hr <20 [facility] ID Date Data Source [id number] 09/14/2020 07:21:[address] [facility] Value Range Interpretation Code Description Data Danuta rce(s) Supporting Document(s) Color of Urine [facility] Clarity of Urine [facility] Specific gravity of Urine by Refractometry automated 1.035 1.003 -1.030 H [facility] pH of Urine by Automated test strip 5.0 5.0-8.0 [facility] Protein [Mass/volume] in Urine by Automated test strip 100 mg/dL Neg ative A [facility] Glucose [Mass/volume] in Urine by Automated test strip Neg [facility] Ketones [Mass/volume] in Urine by Automated test strip 5 mg/dL Neg [facility] Bilirubin.total [Presence] in Urine by Automated test strip Negative [facility] Hemoglobin [Presence] in Urine by Automated test strip Neg [facility] Leukocyte esterase [Presence] in Urine by Automated test strip Negative [facility] Nitrite [Presence] in Urine by Automated test strip [facility] Leukocytes [#/area] in Urine sediment by Automated count 9 /HPF 0 -5 H [facility] Erythrocytes [#/area] in Urine sediment by Automated count 19 /HPF 0-3 H [facility] Epithelial cells.squamous [#/area] in Urine sediment by Auto mated count 1 /HPF None [facility] Mucus [#/area] in Urine sediment by Microscopy low power field None [facility] Crystals.amorphous [#/area] in Urine sediment by Microscopy high power field None [facility] ID Date Data Source [id number] 09/08/2020 03:19:00 PM EST [facility] ([facility]) Name Value Range Interpretation Code Description Data Danuta rce(s) Supporting Document(s) Prostate specific Ag [Mass/volume] in Serum or Plasma 2.41 ng/mL [facility] This assay was performed on the Siemens Dimension EXL using the B- Galactosidase/CPRG methodology and should not be compared interchangeably with other methods. The PSA should not be used alone as a screening test for the presence or absence of malignant disease. ID Date Data Source [id number] 09/08/2020 03:19:00 PM EST [facility] ([facility]) Name Value Range Interpretation Code Description Data Danuta rce(s) Supporting Document(s) Glucose [Mass/volume] in Serum or Plasma 127 mg/dL 74-99 [facility] ([facility]) 100-125 mg/dL PRE-DIABETES/FASTING >126 mg/dL DIABETES/FASTING Urea nitrogen [Mass/volume] in Serum or Plasma 14 mg/dL 7-18 [facility] ([facility]) Creatinine 1.1 mg/dL 0.6-1.3 [facility] Sodium [Moles/volume] in Serum or Plasma 145 meq/L 136-145 [facility] ([facility]) Potassium [Moles/volume] in Serum or Plasma 3.5 meq/L 3.5-5.1 [facility] ([facility]) Chloride [Moles/volume] in Serum or Plasma 106 meq/L 98-107 [facility] Carbon dioxide, total [Moles/volume] in Serum or Plasma 32 meq/L 21 -32 [facility] ([facility]) Calcium [Mass/volume] in Serum or Plasma 8.4 mg/dL 8.5-10.1 [facility] ([facility]) Alkaline phosphatase isoenzyme [Units/volume] in Serum or Pl asma 113 mg/dL 46-116 [facility] Total Bilirubin 0.4 mg/dL 0.2-1.0 [facility] ([facility]) Aspartate aminotransferase [Enzymatic activity/volume] in Serum or Plasma 15 U/L 15-37 [facility] ([facility] ) Alanine aminotransferase [Enzymatic activity/volume] in Seru m or Plasma 24 U/L 12-78 [facility] Albumin [Mass/volume] in Serum or Plasma 3.4 g/dL 3.4-5.0 [facility] ([facility]) Proteinase 3 Ab [Units/volume] in Serum 6.2 g/dL 6.4-8.2 [facility] A/G Ratio 1.21 CALC 1.00-1.90 [facility]) Glomerular filtration rate/1.73 sq M pre dicted among non-blacks [Volume Rate/Area] in Serum or Plasma by Creatinine-based formula (MDRD) Laboratory test result [facility] Glomerular filtration rate/1.73 sq M pre dicted among blacks [Volume Rate/Area] in Serum or Plasma by Creatinine-based formula (MDRD) Laboratory test result [facility] <content>CHRONIC KIDNEY DISEASE STAGING PER NK[facility]</content>
<content></content>
<content>STAGE I & II GFR >= 60 NORMAL TO MILDLY DECREASED</content>
<content>STAGE III GFR 30-59 MODERATELY DECREASED</content>
<content>STAGE IV GFR 15-29 SEVERELY DECREASED</content>
<content>STAGE V GFR <15 VERY LITTLE GFR LEFT</content>
<content>ESRD GFR <15 ON HYBRID TESTER</content>
<content></content> ID Date Data Source [id number] 09/08/2020 03:19:00 PM EST [facility] ([facility]) Name Value Range Interpretation Code Description Data Danuta rce(s) Supporting Document(s) Leukocytes [#/volume] in Blood by Automated count 9.5 x10*3/UL 4.1-10 .9 [facility] ([facility]) Erythrocytes [#/volume] in Blood by Automated count 5.31 x10*6/UL 4.2 0-6.30 [facility] ([facility]) Hemoglobin [Mass/volume] in Blood 15.8 g/dL 12.0-18.0 [facility] ([facility]) Hematocrit [Volume Fraction] of Blood by Automated count 46.9 % 3 7.0-51.0 [facility] ([facility]) MCV 88.2 fL 80.0-97.0 [facility] MCH 29.8 pg 26.0-32.0 [facility]) MCHC 33.7 g/dL 31.0-38.0 [facility] ([facility]) Erythrocyte distribution width [Ratio] by Automated count 14.1 % 11.6-13.7 [facility] ([facility]) Platelets [#/volume] in Blood by Automated count 256 x10*3/UL 140-440 [facility] ([facility]) MPV 9.0 FL 7.8-11.0 [facility] Lymph % 15.8 % 10.0-58.5 [facility] ([facility]) Mid % 4.2 % 1.7-9.3 [facility] Neut % 80.0 % 37.0-92.0 [facility] Lymph # 1.5 x10*3/UL 0.6-4.1 [facility] ([facility]) Mid # 0.4 x10*3/UL 0.1-0.6 [facility] ([facility]) Neut # 7.6 x10*3/UL 2.0-7.8 [facility] ([facility]) ID Date Data Source [id number] 06/09/2020 10:07:00 AM EDT [facility] ([facility]) Name Value Range Interpretation Code Description Data Danuta rce(s) Supporting Document(s) Creatinine For GFR 1.24 mg/dL 0.70-1.30 [facility] ([facility]) Blood Urea Nitrogen 12 mg/dL 7-18 [facility] (No [facility]) Glucose, Fasting 80 mg/dL 70-100 [facility] ([facility] ) Glomerular Filtration Rate Laboratory test result [facility] ([facility] ) <content>Units are mL/min/1.73 m2</content>
<content></content>
<content>Chronic Kidney Disease Staging per [facility]:</content>
<content></content>
<content>Stage I & II GFR >=60 Normal to Mildly Decreased</content>
<content>Stage III GFR 30- 59 Moderately Decreased</content>
<content>Stage IV GFR 15-29 Severely Decreased</content>
<content>Stage V GFR <15 Very Little GFR Left</content>
<content>ESRD GFR <15 on HYBRID TESTER</content>
<content></content> Sodium Level 142 meq/L 136-145 [facility] ([facility]) Carbon Dioxide Level 30 meq/L 21-32 [facility] ([facility]) Potassium Serum 4.5 meq/L 3.5-5.1 [facility] ([facility]) Chloride Level 107 meq/L 98-107 [facility] ([facility]) Calcium Level 9.0 mg/dL 8.8-10.2 [facility] ([facility]) Anion Gap 5 meq/L 8-16 [facility] ([facility]) ID Date Data Source [id number] 06/03/2020 10:01:07 AM [facility] MR BRAIN WITH AND WITHOUT CONTRAST [id number] FINAL RESULTInterpreted by:Jason Parry MDEXAMINATION: MR BRAIN WITH AND WITHOUT CONTRAST [id number] INDICATION: Hyperprolactinemia.TECHNIQUE: Multiplanar and multisequence MR images of the brain were obtained on our Siemens 3.0 Marci Magn[employer]om Ceci MRI scanner.IV CONTRAST: Yes.COMPARISON: MRI of the brain dated 04/15/2020. 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 Thickening noted along the course of the left V3 in the left foramen ovale. Redemonstration of tumor extension into the left middle cranial fossa abutting the medial aspect of the left temporal lobe tip. This has been stable in size when compared to the prior exam. Stable abnormal enhancement within the clivus. The pituitary stalk is central. 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 Commensurate enlargement of the ventricles and sulci due to cerebral volume loss. The basal cisterns are patent. There is no acute intracranial hemorrhage or evidence of acute infarction. N either space-occupying mass, shift of the midline structures, nor abnormal extra-axial fluid collections are present. The Imaged portions of the paranasal sinuses and mastoid air cells are clear. IMPRESSION: 1. 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 There is redemonstration of enhancement of the bilateral cavernous sinuses with associated asymmetrical thickening/infiltration more on the left, and thickening noted along the course of the left V3 in the left foramen ovale. Infiltration is stable to slightly more pronounced on the right side when compared to the prior. Stable appearance of extension of abnormal enhancement to the left middle cranial fossa abutting the left temporal lobe tip. Stable appearance of enhancement of the clivus.This document has been electronically signed by Gordon Lezama MD on 06/03/2020 9:59 AM Name Value Range Interpretation Code Description Data Danuta rce(s) Supporting Document(s) Procedure Social History Code Duration Value Status Description Data Source(s ) Smoking 04/09/2021 12:00:00 AM EDT Patient has never smoked co mpleted Patient has never smoked [facility] ([facility]) Smoking 03/20/2021 04:05:01 PM EDT Never smoked tobacco (findi ng) completed Never smoked tobacco (finding) [place] (Malik Guevara MD [facility]) Alcohol intake 12/16/2020 12:00:00 AM EST Current non-d manoj of alcohol (finding) completed Current non-drinker of alcohol (finding) [facility] Alcohol intake 09/18/2020 12:00:00 AM EST Current non-d manoj of alcohol (finding) completed Current non-drinker of alcohol (finding) [facility] Vital Signs ID Date Data Source [id number] Name Value Range Interpretation Code Description Data Source(s) Systolic blood pressure 128 mm[Hg] 128 [facility]Hg[facility] Diastolic blood pressure 89 mm[Hg] 89 mm[Hg] [facility] ([facility]) Heart rate 72 /min 72 /min [facility] ([facility]) Body height 64 [in_i] 64 [in_i] [facility] ([facility]) 5'4" Body weight 194.00 [lb_av] 194.00 [lb_av] [facility] ([facility]) Body mass index (BMI) [Ratio] 33.3 kg/m2 33.3 k g/m2 [facility] ([facility]) Body weight 184.00 [lb_av] 184.00 [lb_av] [facility] ([facility]) Systolic blood pressure 136 mm[Hg] 136 [facility]Hg[facility] Diastolic blood pressure 86 mm[Hg] 86 mm[Hg] [facility] ([facility]) Heart rate 104 /min 104 /min [facility] ([facility]) Body height 64 [in_i] 64 [in_i] [facility] ([facility]) 5'4" Body mass index (BMI) [Ratio] 31.6 kg/m2 31.6 k g/m2 [facility] ([facility]) Body weight 180.00 [lb_av] 180.00 [lb_av] [facility] ([facility] Respiratory rate 18 /min 18 /min [facility] ( [facility]) Systolic blood pressure 136 mm[Hg] 136 mm[Hg] M [facility] ([facility]) Body temperature 96.4 [degF] 96.4 [degF] [facility] ([facility] Body height 64.5 [in_i] 64.5 [in_i] [facility] ([facility] 5'4.50" Body weight 183.25 [lb_av] 183.25 [lb_av] [facility] ([facility] Body mass index (BMI) [Ratio] 31.0 kg/m2 31.0 k g/m2 [facility] ([facility] Oxygen saturation in Arterial blood by Pulse oximetry 98 % 98 % [facility] ([facility] Diastolic blood pressure 80 mm[Hg] 80 mm[Hg] [facility] ([facility]) Heart rate 112 /min 112 /min [facility] ([facility]) Diastolic blood pressure 80 mm[Hg] 80 mm[Hg] [facility] ([facility]) Body height 64 [in_i] 64 [in_i] [facility] ([facility]) 5'4" Body weight 185.00 [lb_av] 185.00 [lb_av] [facility] ([facility]) Body mass index (BMI) [Ratio] 31.8 kg/m2 31.8 k g/m2 [facility] ([facility]) Systolic blood pressure 126 mm[Hg] 126 mm[Hg] M [facility] ([facility]) Heart rate 78 /min 78 /min [facility] ([facility]) Heart rate 77 /min 77 /min [facility] ([facility]) Diastolic blood pressure 83 mm[Hg] 83 mm[Hg] [facility] ([facility]) per home readings Systolic blood pressure 127 mm[Hg] 127 mm[Hg] M [facility] ([facility]) per home readings Body weight 195.00 [lb_av] 195.00 [lb_av] [facility] ([facility]) Body temperature 98.9 [degF] 98.9 [degF] [facility] ([facility]) Respiratory rate 16 /min 16 /min [facility] ( [facility]) Diastolic blood pressure 80 mm[Hg] 80 mm[Hg] [facility] ([facility]) Heart rate 80 /min 80 /min [facility] ([facility]) Body height 64 [in_i] 64 [in_i] [facility] ([facility]) 5'4" Body weight 198.00 [lb_av] 198.00 [lb_av] [facility] ([facility]) Oxygen saturation in Arterial blood by Pulse oximetry 97 % 97 % [facility] ([facility]) Body mass index (BMI) [Ratio] 34.0 kg/m2 34.0 k g/m2 [facility] ([facility]) Systolic blood pressure 150 mm[Hg] 150 mm[Hg] [facility] ([facility]) Diastolic blood pressure 90 mm[Hg] 90 mm[Hg] [facility] ([facility]) Systolic blood pressure 120 mm[Hg] 120 mm[Hg] [facility] ([facility]) ID Date Data Source [id number] 10/24/2020 08:53:02 AM [facility] Name Value Range Interpretation Code Description Data Source(s) WEIGHT RECORDED 195 lb 195 lb [facility] ID Date Data Source [id number] 09/19/2020 05:43:12 AM [facility] Name Value Range Interpretation Code Description Data Source(s) WEIGHT RECORDED 195 lb 195 lb [facility] Body height Measured 64 in 64 in [facility] Patient Treatment Plan of Care Planned Activity Planned Date Details Description Data Source (s) Ondansetron 4 MG Oral Tablet 09/14/2020 12:55:27 PM [facility] Oxycodone Hydrochloride 5 MG Oral Tablet 09/14/2020 12:00:00 AM [facility]
[2021-08-02 09:31] LABS: BASO % 0.4 % (0.0-1.0); HEMATOCRIT 48.1 % (42.0-52.0); HEMOGLOBIN 15.5 g/dl (13.5-17.5); LYMPH # 0.9 10^3/uL (1.5-5.0); LYMPH % 11.9 % (24.0-44.0); MEAN CORPUSCULAR HEMOGLOBIN 27.7 pg (27.0-33.0); MEAN CORPUSCULAR HGB CONC 32.2 g/dl (32.0-36.5); MONO # 0.1 10^3/uL (0.0-0.8); MONO % 0.9 % (2.0-8.0); NEUTROPHILS # 6.5 10^3/uL (1.5-8.5); NEUTROPHILS % 85.7 % (36.0-66.0); PLATELET COUNT, AUTOMATED 315 10^3/uL (150-450); RED BLOOD COUNT 5.59 10^6/uL (4.30-6.10); WHITE BLOOD COUNT 7.6 10^3/uL (4.0-10.0)
[2021-08-02] MEDS ORDERED: diphenhydrAMINE 50MG/ML VIAL (J1200) IV ONE (09:40)
[2021-08-02] MEDS ORDERED: METOCLOPRAMIDE INJ 10MG/2ML VIAL (J2765 PER 1) IV ONE (09:40)
[2021-08-02] MEDS ORDERED: KETOROLAC 30 MG/ML 1ML VIAL IV ONE (09:40)
--- OUTSIDE RECORDS SUMMARY | 2021-08-02 09:51 | CCD ---
Author Author [facility] Organization [facility] Address Unknown Phone Unavailable Care Team Providers Care Sander Machine Name Role Phone Josep Rendon MD Unavailable [...] F Lino MD Unavailable Unavailable White, F Ilno MD Unavailable Unavailable White, F Lino MD [...] Unavailable KEYONA, Светлана NAVARRO MD Unavailable Unavailable KYEONA, Светлана NAVARRO MD Unavailable Unavailable KEYONA, Светлана [...] Pam DOWLING Unavailable Unavailable Fish, B Pam DOWLNIG Unavailable Unavailable Fish, B Pam DOWLING Unavailable [...] B Pam DOWLING Unavailable Unavailable Fish, B aPm DOWLING Unavailable Unavailable Fish, B Pam DOWLING Unavailable Unavailable Fish, B Pam DOWLING Unavailable Unavailable Dumont, A Phyl CIRCLE CUTTING SAW OPERATOR-BC Unavailable Unavailable Dumont, A Phyl CIRCLE CUTTING SAW OPERATOR-BC Unavailable Unavailable Dumont, A Phyl CIRCLE CUTTING SAW OPERATOR-BC Unavailable Unavailable Dumont, A Phyl CIRCLE CUTTING SAW OPERATOR-BC Unavailable Unavailable Dumont, A Phyl CIRCLE CUTTING SAW OPERATOR-BC Unavailable Unavailable Dumont, A Phyl CIRCLE CUTTING SAW OPERATOR-BC Unavailable Unavailable Dumont, A Phyl CIRCLE CUTTING SAW OPERATOR-BC Unavailable Unavailable Dumont, A Phyl CIRCLE CUTTING SAW OPERATOR-BC Unavailable Unavailable Dumont, A Phyl CIRCLE CUTTING SAW OPERATOR-BC Unavailable Unavailable Dumont, A Phyl CIRCLE CUTTING SAW OPERATOR-BC Unavailable Unavailable Dumont, A Phyl CIRCLE CUTTING SAW OPERATOR-BC Unavailable Unavailable Dumont, A Phyl CIRCLE CUTTING SAW OPERATOR-BC Unavailable Unavailable Dumont, A Phyl CIRCLE CUTTING SAW OPERATOR-BC Unavailable Unavailable Dumont, A Phyl CIRCLE CUTTING SAW OPERATOR-BC Unavailable Unavailable Dumont, A Phyl CIRCLE CUTTING SAW OPERATOR-BC Unavailable Unavailable Dumont, A Phyl CIRCLE CUTTING SAW OPERATOR-BC Unavailable Unavailable Dumont, A Phyl CIRCLE CUTTING SAW OPERATOR-BC Unavailable Unavailable Dumont, A Phyl CIRCLE CUTTING SAW OPERATOR-BC Unavailable Unavailable Dumont, A Phyl CIRCLE CUTTING SAW OPERATOR-BC Unavailable Unavailable Dumont, A Phyl CIRCLE CUTTING SAW OPERATOR-BC Unavailable Unavailable Dumont, A Phyl CIRCLE CUTTING SAW OPERATOR-BC Unavailable Unavailable Dumont, A Phyl CIRCLE CUTTING SAW OPERATOR-BC Unavailable Unavailable Dumont, A Phyl CIRCLE CUTTING SAW OPERATOR-BC Unavailable Unavailable Dumont, A Phyl CIRCLE CUTTING SAW OPERATOR-BC Unavailable Unavailable Dumont, A Phyl CIRCLE CUTTING SAW OPERATOR-BC Unavailable Unavailable Dumont, A Phyl CIRCLE CUTTING SAW OPERATOR-BC Unavailable Unavailable Dumont, A Phyl CIRCLE CUTTING SAW OPERATOR-BC Unavailable Unavailable Dumont, A Phyl CIRCLE CUTTING SAW OPERATOR-BC Unavailable Unavailable Dumont, A Phyl CIRCLE CUTTING SAW OPERATOR-BC Unavailable Unavailable Dumont, A Phyl CIRCLE CUTTING SAW OPERATOR-BC Unavailable Unavailable Dumont, A Phyl CIRCLE CUTTING SAW OPERATOR-BC Unavailable Unavailable Dumont, A Phyl CIRCLE CUTTING SAW OPERATOR-BC Unavailable Unavailable Tolleson, Светлана Geiger MD Unavailable Unavailable Tolleson, Светлана Geiger MD Unavailable Unavailable Yudelka, Светлана Geiger MD Unavailable Unavailable Yudelka, Светлана Geiger MD Unavailable Unavailable Tolleson, Светлана Geiger MD Unavailable Unavailable Tolleson, Светлана Geiger MD Unavailable Unavailable Tolleson, Светлана Geiger MD Unavailable Unavailable Tolleson, Светлана Geiger MD Unavailable Unavailable Yudelka, Светлана Geiger MD Unavailable Unavailable Yudelka, Свтелана Geiger MD Unavailable Unavailable Yudelka, Светлана Geiger MD Unavailable Unavailable Yudelka, Светлана Geiger MD Unavailable Unavailable Tolleson, Светлана Geiger MD Unavailable Unavailable Tolleson, Светлана Geiger MD Unavailable Unavailable Tolleson, Светлана Geiger MD Unavailable Unavailable Yudelka, Светлана Geiger MD Unavailable Unavailable Tolleson, Светлана Geiger MD Unavailable Unavailable Yudelka, Светлана Geiger MD Unavailable Unavailable Tolleson, Светлана Geiger MD Unavailable Unavailable Yudelka, Светлана Geiger MD Unavailable Unavailable Yudelka, Светлана Geiger MD Unavailable Unavailable Tolleson, Светлана Geiger MD Unavailable Unavailable Tolleson, Светлана Geiger MD Unavailable Unavailable Yudelka, Светлана Geiger MD Unavailable Unavailable Yudelka, Светлана Geiger MD Unavailable Unavailable Tolleson, Светлана Geiger MD Unavailable Unavailable Tolleson, Светлана Geiger MD Unavailable Unavailable Tolleson, Светлана Geiger MD Unavailable Unavailable Yudelka, Светлана Geiger MD Unavailable Unavailable Tolleson, Светлана Geiger MD Unavailable Unavailable Tolleson, Светлана Geiger MD Unavailable Unavailable Tolleson, Светлана Geiger MD Unavailable Unavailable Tolleson, Светлана Geiger MD Unavailable Unavailable Tolleson, Светлана Geiger MD Unavailable Unavailable Tolleson, Светлана Geiger MD Unavailable Unavailable Yudelka, Светлана [...] is protected by Article 27-F of the [place] Public [employer] law. If you continue you may have access to information: Regarding HIV / AIDS; Provided by facilities licensed or operated by the [place] [facility] Office of Mental Health; or Provided by the [place] [facility] Office for People With Developmental Disabilities. If such information is present, then the following [place] [facility] mandated warning applies: This information has been [...] law may result in a fine or assisted sentence or both. A general authorization for the release of medical or other information is NOT sufficient authorization for further disc losure. Allergies and Adverse Reactions Type Description Substance Reaction Status Data Source(s ) Propensity to adverse reactions AMOXICILLIN Amoxicillin [facility] Family History Family Member Name Family Member Gender Family Member Status Date o f Status Description Data Source(s) Unknown Male Problem [facility] ([facility]) () Unknown Male Problem [facility] ) () Encounters Encounter Providers Location Date Indications Data Source(s ) Outpatient Attender: Lino Zavala 05/04 02:00:00 PM EDT [facility] ([facility] ) Outpatient Attender: Rai Dumont [facility] Main Office 0 04/14/2021 02:00:00 PM EDT [facility] ([facility]) Outpatient Attender: Pam Veronica MD Physical Therapy 04/09 02:15:00 PM EDT [facility] ([facility]) Outpatient Attender: Lino Zavala 01/26 08:00:00 AM EDT [facility] ([facility] ) Outpatient Referrer: Manju Enriquez 12/16/2020 12:00: 00 AM EST Benign neoplasm of pituitary gland [facility] Benign neoplasm of pituitary gland Outpatient Attender: Lino Zavala 11/04 12:00:00 PM EST [facility] ([facility] ) Outpatient Attender: Pam Veronica MD Physical Therapy 09/30 02:00:00 PM EST [facility] ([facility]) Outpatient Attender: Juanjo Jha MD 09/25/2020 12:00:0 0 AM Health system Outpatient Referrer: HAMILTON DUNN 09/22/2020 12:00:[address] [facility] Outpatient 09/19/2020 12:00:00 AM Health system Outpatient Attender: Juanjo Jha MDReferrer: SA SABINO RAND MD 07A-RONCACTR 09/18/2020 12:00:00 AM EST - 09/18/2020 02:33:14 PM EST f/u [facility] f/u Outpatient 09/16/2020 12:00:00 AM Health system Outpatient 09/15/2020 12:00:00 AM Health system Emergency Attender: CUCA CAGE MDAttender: Sreekanth gavin MD 07A-ADULTERM 09/14/2020 12:00:00 AM EST - 09/14/2020 11:02:00 PM EST Other specified disorders of brain [facility] Other specified disorders of brain Patient discharged. Outpatient Attender: Lino Zavala 09/08 01:30:00 PM EST [facility] ([facility] ) Outpatient 06/17/2020 12:00:00 AM [facility] Outpatient Referrer: HAMILTON DUNN 06/02/2020 12:00:0 0 AM EDT Hyperprolactinemia [facility] Hyperprolactinemia Medications Medication Brand Name Start Date [...] 05/04/2021 12:00:00 AM EDT ORAL completed [facility] ([facility]) 100 mcg 04/16/2021 12:00:00 AM [...] DS 04/09/2021 12:00:00 AM EDT active [facility] ([facility]) 1 mg 04/03/2021 12:00:00 [...] 03/22/2021 12:00:00 AM EDT ORAL active [facility] ([facility]) 20 mEq 03/21/2021 12:00:00 [...] 03/20/2021 12:00:00 AM EDT ORAL active [facility] ([facility]) 20 mg 03/19/2021 12:00:00 AM EDT [...] 12:00:0 0 AM EDT ORAL active [facility] ([facility]) 1 mg 01/20/2021 12:00:00 AM [...] 12:00:0 0 AM EDT ORAL completed [facility] ([facility]) 4 mg 01/05/2021 12:00:00 AM [...] Drugs gadobutrol (GADAVIST) contrast injection 4 mL [id number] 04:15:00 PM EST 4 mL Intravenous completed 4 mL, Tavo pugh, 1 TIME IMAGING, [facility] 12/16/20 at 1615, For 1 dose, Imaging Protocol
Do not mix or administer in the same IV line with other medications.
[facility] Medication administered onsite 25 mg 12/16/2020 12:00:00 [...] 11/25/2020 12:00:00 A M EST active [facility] ([facility]) 5 mg 11/21/2020 12:00:00 [...] 11/04/2020 12:00 :00 AM EST active [facility] ([facility]) 4 mg 10/29/2020 12:00:00 AM [...] 1 2:00:00 AM EST ORAL active [facility] ([facility]) 5 mg 10/28/2020 12:00:00 AM [...] Once, 09/14/20 at 1999, For 1 dose [facility] Medication administered onsite sodium chloride 0.9 % bolus 1,000 mL 8705-3949-11 09/14/2020 08:00: 00 PM EST 1000 mL Intravenous completed 1,000 mL , Intravenous, Once, 09/14/20 at 1999, For 1 dose [facility] Medication administered onsite diphenhydrAMINE (BENADRYL) injection 25 mg 67035-152-61 09/14/2020 08:00:00 PM EST 25 mg Intravenous completed 25 mg, Intravenous, Once, 09/14/20 at 1999, For 1 dose [facility] Medication administered onsite 2 ML Metoclopramide 5 MG/ML Prefilled Sy ringe metoclopramide (REGLAN) injection 10 mg metoclopramide (REGLAN) injection 10 mg 09/14/2020 08:00:[address] 10 mg Intravenous completed 10 mg, I ntravenous, Once, Stacy 09/14/20 at 2000, For 1 dose [facility] Medication administered onsite 1 ML Ketorolac Tromethamine 30 MG/ML Car tridge ketorolac (TORADOL) 30 MG/ML injection 15 mg ketorolac (TORADOL) 30 MG/ML injection 15 mg 0 07:45:00 PM EST 15 mg Intravenous completed 15 mg, Intravenous, Once, Stacy 09/14/20 at 2000, For 1 dose [facility] Medication administered onsite gadobutrol (GADAVIST) contrast injection 8.5 mL [id number] 09/14/2020 05:15:00 PM EST 0.1 mL/kg Intravenous completed 8.5 mL (rounded from 8.85 mL = 0.1 mL/kg 88.5 kg), Intravenous, 1 TIME IMAGING, Stacy 09/14/20 at 1715, For 1 dose
Do not mix or administer in the same IV line with other medications.
[facility] Medication administered onsite morphine sulfate (PF) injection 6 mg 7331-9880-25 09/14/2020 03:30: 00 PM EST 6 mg Intravenous completed 6 mg, In travenous, Once, Stacy 09/14/20 at 1530, For 1 dose [facility] Medication administered onsite NaCl infusion 0.9 % 0707-3256-82 09/14/2020 03:15:00 PM EST Intravenous active at 100 mL/hr, Intrav enous, Continuous, Starting Stacy 09/14/20 at 1515, For 30 days [facility] Medication administered onsite ondansetron (ZOFRAN) injection 4 mg 32468-303-61 09/14/2020 01:15:0 0 PM EST 4 mg Given by IV completed 4 mg, Gi sebastian by IV, Once, Stacy 09/14/20 at 1315, For 1 dose [facility] Medication administered onsite morphine sulfate (PF) injection 4 mg 8204-9723-63 09/14/2020 01:00: 00 PM EST 4 mg Intravenous completed 4 mg, In travenous, Once, Stacy 09/14/20 at 1300, For 1 dose [facility] Medication administered onsite Ondansetron 4 MG Oral Tablet ondansetron (ZOFRAN) tabl et 4 mg ondansetron (ZOFRAN) tablet 4 mg 09/14/2020 12:55:27 PM EST 4 mg Oral active 4 mg, Oral, Every 8 hours PRN, Nausea, Vomiting, Starting 09/14/20 at 1255, For 30 days [facility] Medication administered onsite Oxycodone Hydrochloride 5 MG Oral Tablet oxyCODONE HCl 5 MG Oral Tablet (ROXICODONE) oxyCODONE HCl 5 MG Oral Tablet (ROXICODONE) 09/14/2020 12:00:00 AM EST 10 mg Oral completed Take 2 tablets by mouth every 6 (six) hours as needed for Pain for up to 3 days, Max Daily Dose: 40 mg [facility] 10 mg 09/09/2020 12:00:00 AM EST tablet [...] 12:00:00 AM EDT ORAL active [facility] ([facility] 100 mcg 06/11/2020 [...] Drugs gadobutrol (GADAVIST) contrast injection 4 mL 45062 03:45:00 PM EDT 0.05 mL/kg Intravenous completed 4 mL (r ounded from 4.49 mL = 0.05 mL/kg 89.8 kg), Intravenous, 1 TIME IMAGING, 06/02/20 at 1545, For 1 dose
Do not mix or administer in the same IV line with other medications.
[facility] Medication administered onsite 24 HR Bupropion Hydrochloride 150 MG Extended Release Oral T ablet BUPROPION HCL 05/08/2020 12:00:00 AM EDT tablet extended release 24 hr 30 TAKE ONE TABLET BY MOUTH EVERY DAY TAKE ONE TABLET BY MOUTH EVERY DAY SOLD: 11/04/2020 [facility] 24 HR Bupropion Hydrochloride 150 MG [...] TABLET BY MOUTH EVERY DAY SOLD: 08/07/2020 [facility] 24 HR Bupropion Hydrochloride 150 MG [...] TABLET BY MOUTH EVERY DAY SOLD: 08/03/2020 [employer] Insurance Providers Payer name Policy type / Coverage type Policy ID Covered democrat ID Covered democrat's relationship to pearson Policy Pearson Plan Information MVP (pr) Commercial [id number] Self MVP (pr) Commercial [id number] Self [id number] MVP [id number] Self [id number] [employer] Healthcare Commercial [id number] Self [id number] MVP Healthcare Commercial [id number] [facility] [id number] [place] (pr) Medigap Part B [id number] Family Dependent [id number] [employer] (pr) Commercial [id number] Family Dependent [place] Ppo Medigap Part B [id number] Family Dependent [place] (pr) Medigap Part B [id number] Family Dependent [id number] [employer] (pr) Commercial [id number] Family Dependent [id number] [place] Ppo Medigap Part B [id number] .[id number] Family Dependent [id number] [place] Ppo Medigap Part B [id number] .[id number] Family Dependent [id number] [employer] (pr) Commercial [id number] [id number] Family Dependent [id number] [place] Ppo Medigap Part B [id number] .4595.15022.0 Family Dependent [id number] [employer] (pr) Medigap Part B [id number] .[id number] Family Dependent [id number] [place]/Umr (Old) Medigap Part B [id number] [id number] Family Dependent [id number] [place] (pr) Medigap Part B [id number] Family Dependent [id number] [place] (pr) Medigap Part B [id number] .[id number] Family Dependent [id number] Umr [place] Ppo Medigap Part B [id number] [id number] Family Dependent [id number] [employer] (pr) Commercial [id number] [id number] Family Dependent [id number] [employer] U [id number] Spouse [id number] POMCO [id number] WI2 [id number] UMR [facility] [id number] WI2 [id number] UMR U [id number] Spouse [id number] MEDICARE A [id number] Self [id number] UMR U [id number] Spouse [id number] UMR U [id number] Spouse [id number] Umr (pr) Commercial [id number] Self [id number] UMR U [id number] Spouse [id number] Umr (pr) Commercial [id number] Self [id number] Umr (New [place]) Commercial [id number] Family Dependent [id number] Umr (pr) Commercial [id number] Self [id number] Umr (pr) Commercial [id number] Self [id number] UMR [facility] [id number] WI2 [id number] Umr (pr) Commercial [id number] Self [id number] MEDICARE A Self O [id number] S [id number] MEDICARE [id number] SP [id number] MEDICARE [id number] SP [id number] A UMR O [id number] S [id number] [facility] Part B [id number] Self [id number] [facility] Medigap Part B [id number] Self [id number] BS [facility] Medigap Part B [id number] Self [id number] BS [facility] Medigap Part B [id number] Self S [id number] BS [facility] Medigap Part B [id number] 2..[id number] Self S [id number] BS [facility] Medigap Part B [id number] 2...[id number] [facility] [id number] P [id number] MEDICARE [id number] SP [id number] A BS [facility] Medigap Part B [id number] 2...[id number] Self S [id number] [facility] (O) [id number] Self [id number] BS [facility] Medigap Part B [id number] [id number] Self S [id number] BS [facility] Medigap Part B [id number] Self OTHER WORKERS COMPENSATION [id number] SP [id number] [facility] P [id number] S [id number] [facility] [id number] S [id number] 300 Problems, Conditions, and Diagnoses Code Display Name Description Problem Type Effective Dates Data Source(s) f/u f/u Diagnosis 09/18/2020 07:36:01 AM ES [facility] G93.89 Other specified disorders of brain Other specifi ed disorders of brain Diagnosis 09/14/2020 11:54:00 AM Health system Headache;cancer patient Headache;cancer patient Diagno sis 09/14/2020 11:54:00 AM Health system E22.1 Hyperprolactinemia Hyperprolactinemia Diagnosis 02:43:03 PM [facility] Surgeries/Procedures Procedure Description Date Indications Data Source(s) OFFICE OUTPATIENT VISIT 25 MINUTES 05/04/2021 12:00:00 AM EDT [facility] ([facility]) OFFICE OUTPATIENT VISIT 25 MINUTES 04/14/2021 12:00:00 AM EDT [facility] ([facility]) OFFICE OUTPATIENT VISIT 25 MINUTES 04/09/2021 12:00:00 AM EDT [facility] ([facility]) OFFICE OUTPATIENT VISIT 25 MINUTES 01/26/2021 12:00:00 AM EDT [facility] ([facility]) MRI ORBIT FACE & NCK W/O &W/CONTRAST MATRL <td>MR ORBI T WITH AND WITHOUT CONTRAST [id number]</td><td>Routine</td><td>09/14/2020 6:30 PM EST</td><td></td><td> </td> 09/14/2020 06:30:00 PM Health system MRI BRAIN BRAIN STEM W/O &W/CONTRAST MATERIAL <td>MR B RAIN WITH AND WITHOUT CONTRAST [id number]</td><td>Routine</td><td>09/14/2020 6:25 PM EST</td><td></td><td> </td> 09/14/2020 06:25:[address] HEAD/BRAIN W/O CONTRAST MATERIAL <td>CT HEAD WITHOU T CONTRAST [id number]</td><td>STAT</td><td>09/14/2020 1:45 PM EST</td><td></td><td> </td> 09/14/2020 01:45:21 PM Health system SEDIMENTATION RATE RBC AUTOMATED <td>SEDIMENTATION RAT E, AUTOMATED</td><td>Routine</td><td>09/14/2020 12:55 PM EST</td><td></td><td> </td> 09/14/2020 12:55:00 PM Health system BLOOD COUNT COMPLETE AUTO&AUTO DIFRNTL WBC COUNT <td>C BC AND DIFFERENTIAL</td><td>Routine</td><td>09/14/2020 12:55 PM EST</td><td></td><td> </td> 09/14/2020 12:55:00 PM Health system C-REACTIVE PROTEIN <td>INFLAMMATORY C-REACTIVE PROTEIN (CRP)</td><td>Routine</td><td>09/14/2020 12:55 PM EST</td><td></td><td> </td> 09/14/2020 12:55:00 PM Health system BASIC METABOLIC PANEL CALCIUM TOTAL <td>BASIC METABOLI C PANEL</td><td>STAT</td><td>09/14/2020 12:55 PM EST</td><td></td><td> </td> 09/14/2020 12:55:00 PM Health system URNLS DIP STICK/TABLET REAGENT AUTO MICROSCOPY <td>URI NALYSIS WITH MICROSCOPIC</td><td>STAT</td><td>09/14/2020 12:34 PM EST</td><td></td><td> </td> 09/14/2020 12:34:00 PM Health system Diabetic Retinal Eye Exam 09/14/2020 12:00:00 AM EST [facility] ([facility]) MRI BRAIN BRAIN STEM W/O &W/CONTRAST MATERIAL <td>MR B RAIN WITH AND WITHOUT CONTRAST [id number]</td><td>Routine</td><td>06/02/2020 4:15 PM EDT</td><td> Hyperprolactinemia</td><td> </td> 06/02/2020 04:15:40 PM EDT Hyperprolactinemia [facility] Hyperprolactinemia Results ID Date Data Source [id number] 06/29/2021 03:42:00 PM EDT [facility] ([facility]) Name Value Range Interpretation Code Description Data Danuta rce(s) Supporting Document(s) Glucose, Fasting 162 mg/dL 70-100 [facility] ([facility]) Glomerular Filtration Rate Laboratory test result [facility] ([facility]) <content>Units are mL/min/1.73 m2</content>
<content></content>
<content>Chronic Kidney Disease Staging per NKF:</content>
<content></content>
<content>Stage I & II GFR >=60 Normal to Mildly Decreased</content>
<content>Stage III GFR 30- 59 Moderately Decreased</content>
<content>Stage IV GFR 15-29 Severely Decreased</content>
<content>Stage V GFR <15 Very Little GFR Left</content>
<content>ESRD GFR <15 on ZIPPER SETTER CHAINSTITCH</content>
<content></content> Blood Urea Nitrogen 10 mg/dL 7-18 [facility] Creatinine For GFR 1.06 mg/dL 0.70-1.30 [facility] ([facility]) Sodium Level 142 meq/L 136-145 [facility] ([facility]) Potassium Serum 4.2 meq/L 3.5-5.1 [facility] ([facility]) Chloride Level 108 meq/L 98-107 [facility] Carbon Dioxide Level 28 meq/L 21-32 [facility] Anion Gap 6 meq/L 8-16 [facility] Calcium Level 8.6 mg/dL 8.8-10.2 [facility] ([facility]) ID Date Data Source [id number] 06/16/2021 03:20:00 PM EDT [facility] ([facility]) Name Value Range Interpretation Code Description Data Danuta rce(s) Supporting Document(s) White Blood Count 10.8 10 4.0-10.0 [facility] ([facility]) Hemoglobin 15.9 g/dL 13.5-17.5 [facility] ([facility]) Red Blood Count 5.44 10 4.30-6.10 [facility] ([facility]) Mean Corpuscular Volume 92.5 fl 80.0-96.0 [facility] ([facility]) Hematocrit 50.3 % 42.0-52.0 [facility] ([facility]) Mean Corpuscular Hemoglobin 29.2 pg 27.0-33.0 ME DENT ([facility]) Platelet Count, Automated 280 10 150-450 MEDE NT ([facility]) Red Cell Distribution Width 15.7 % 11.5-14.5 ME DENT ([facility]) Mean Corpuscular HGB Conc 31.6 g/dL 32.0-36.5 MEDE NT ([facility]) Lymph % 17.5 % 24.0-44.0 [facility] [place] % 5.7 % 2.0-8.0 [facility] Neutrophils % 70.6 % 36.0-66.0 [facility] ([facility]) Immature Granulocyte % 4.8 % 0-3.0 [facility] ([facility]) Eos % 0.1 % 0.0-3.0 [facility] Baso % 1.3 % 0.0-1.0 [facility] Lymph # 1.9 10 1.5-5.0 [facility] Neutrophils # 7.6 10 1.5-8.5 [facility] ([facility]) Nucleated Red Blood Cell % 0.0 % 0-0 MED ENT ([facility]) [place] # 0.6 10 0.0-0.8 [facility] Baso # 0.1 10 0.0-0.2 [facility] Eos # 0.0 10 0.0-0.5 [facility] ID Date Data Source [id number] 06/16/2021 03:20:00 PM EDT [facility] ([facility]) Name Value Range Interpretation Code Description Data Danuta rce(s) Supporting Document(s) Magnesium [Moles/volume] in Serum or Plasma 2.3 mg/dL 1.8-2.4 [facility] ([facility]) Thyroxine (T4) free [Mass/volume] in Serum or Plasma 0.84 ng/dL 0.76- 1.46 [facility] ([facility]) ID Date Data Source [id number] 06/16/2021 03:20:00 PM EDT [facility] ([facility]) Name Value Range Interpretation Code Description Data Danuta rce(s) Supporting Document(s) Blood Urea Nitrogen 13 mg/dL 7-18 [facility] ([facility]) Glucose, Fasting 116 mg/dL 70-100 [facility] ([facility]) Creatinine For GFR 1.11 mg/dL 0.70-1.30 [facility] ([facility]) Glomerular Filtration Rate Laboratory test result [facility] ([facility]) <content>Units are mL/min/1.73 m2</content>
<content></content>
<content>Chronic Kidney Disease Staging per NKF:</content>
<content></content>
<content>Stage I & II GFR >=60 Normal to Mildly Decreased</content>
<content>Stage III GFR 30- 59 Moderately Decreased</content>
<content>Stage IV GFR 15-29 Severely Decreased</content>
<content>Stage V GFR <15 Very Little GFR Left</content>
<content>ESRD GFR <15 on ZIPPER SETTER CHAINSTITCH</content>
<content></content> Sodium Level 138 meq/L 136-145 [facility] ([facility]) Chloride Level 105 meq/L 98-107 [facility] ([facility]) Potassium Serum 5.0 meq/L 3.5-5.1 [facility] ([facility]) Anion Gap 6 meq/L 8-16 [facility] Calcium Level 9.5 mg/dL 8.8-10.2 [facility] ([facility]) Carbon Dioxide Level 27 meq/L 21-32 [facility] ([facility]) Ast/Sgot 26 U/L 7-37 [facility] ([facility]) Alt/SGPT 59 U/L 12-78 [facility] ([facility]) Alkaline Phosphatase 107 U/L 45-117 [facility] Bilirubin,Total 0.4 mg/dL 0.2-1.0 [facility] ([facility]) Total Protein 6.6 GM/DL 6.4-8.2 [facility] ([facility]) Albumin 3.3 GM/DL 3.2-5.2 [facility] ([facility]) Albumin/Globulin Ratio 1.0 [facility] ([facility]) ID Date Data Source [id number] 06/02/2021 11:05:00 AM EDT [facility] ([facility] Name Value Range Interpretation Code Description Data Danuta rce(s) Supporting Document(s) Magnesium [Moles/volume] in Serum or Plasma 2.0 mg/dL 1.8-2.4 [facility] ([facility]) Thyroxine (T4) free [Mass/volume] in Serum or Plasma 0.79 ng/dL 0.76- 1.46 [facility] ([facility]) ID Date Data Source [id number] 06/02/2021 11:05:00 AM EDT [facility] ([facility] Name Value Range Interpretation Code Description Data Danuta rce(s) Supporting Document(s) Blood Urea Nitrogen 19 mg/dL 7-18 [facility] ([facility]) Glucose, Fasting 149 mg/dL 70-100 [facility] ([facility]) Creatinine For GFR 1.07 mg/dL 0.70-1.30 [facility] ([facility]) Glomerular Filtration Rate [facility] <content>Units are mL/min/1.73 m2</content>
<content></content>
<content>Chronic Kidney Disease Staging per NKF:</content>
<content></content>
<content>Stage I & II GFR >=60 Normal to Mildly Decreased</content>
<content>Stage III GFR 30- 59 Moderately Decreased</content>
<content>Stage IV GFR 15-29 Severely Decreased</content>
<content>Stage V GFR <15 Very Little GFR Left</content>
<content>ESRD GFR <15 on ZIPPER SETTER CHAINSTITCH</content>
<content></content> Sodium Level 139 meq/L 136-145 [facility] ([facility]) Potassium Serum 4.4 meq/L 3.5-5.1 [facility] ([facility]) Chloride Level 106 meq/L 98-107 [facility] ([facility]) Carbon Dioxide Level 27 meq/L 21-32 [facility] ([facility] Ast/Sgot 24 U/L 7-37 [facility] ([facility]) Anion Gap 6 meq/L 8-16 [facility] ([facility]) Calcium Level 8.3 mg/dL 8.8-10.2 [facility] ([facility]) Alkaline Phosphatase 79 U/L 45-117 [facility] ([facility] Alt/SGPT 55 U/L 12-78 [facility] ([facility]) Bilirubin,Total 0.4 mg/dL 0.2-1.0 [facility] ([facility]) Total Protein 6.0 GM/DL 6.4-8.2 [facility] ([facility]) Albumin/Globulin Ratio 1.1 [facility] Albumin 3.2 GM/DL 3.2-5.2 [facility] ([facility]) ID Date Data Source [id number] 06/02/2021 11:05:00 AM EDT [facility] ([facility]) Name Value Range Interpretation Code Description Data Danuta rce(s) Supporting Document(s) White Blood Count 11.4 10 4.0-10.0 [facility] ([facility]) Hemoglobin 15.3 g/dL 13.5-17.5 [facility] ([facility]) Red Blood Count 5.13 10 4.30-6.10 [facility] ([facility]) Hematocrit 47.7 % 42.0-52.0 [facility] ([facility]) Mean Corpuscular HGB Conc 32.1 g/dL 32.0-36.5 MEDE NT ([facility]) Mean Corpuscular Hemoglobin 29.8 pg 27.0-33.0 ME DENT ([facility]) Mean Corpuscular Volume 93.0 fl 80.0-96.0 [facility] ([facility]) Platelet Count, Automated 234 10 150-450 MEDE NT ([facility]) Red Cell Distribution Width 15.9 % 11.5-14.5 ME DENT ([facility]) Neutrophils % 71.9 % 36.0-66.0 [facility] ([facility]) Lymph % 16.8 % 24.0-44.0 [facility] [place] % 5.7 % 2.0-8.0 [facility] ([facility]) Baso % 1.0 % 0.0-1.0 [facility]) Eos % 0.1 % 0.0-3.0 [facility] ([facility] Immature Granulocyte % 4.5 % 0-3.0 [facility] ([facility]) Nucleated Red Blood Cell % 0.2 % 0-0 MED ENT ([facility]) Neutrophils # 8.2 10 1.5-8.5 [facility] ([facility]) Lymph # 1.9 10 1.5-5.0 [facility]) [place] # 0.7 10 0.0-0.8 [facility] ([facility]) Baso # 0.1 10 0.0-0.2 [facility] ([facility]) Eos # 0.0 10 0.0-0.5 [facility]) ID Date Data Source [id number] 06/02/2021 11:05:00 AM EDT [facility] ([facility]) Name Value Range Interpretation Code Description Data Danuta rce(s) Supporting Document(s) White Blood Count 11.4 10 4.0-10.0 [facility] ([facility]) Hemoglobin 15.3 g/dL 13.5-17.5 [facility] ([facility]) Red Blood Count 5.13 10 4.30-6.10 [facility] ([facility] ) Hematocrit 47.7 % 42.0-52.0 [facility] ([facility]) Mean Corpuscular Volume 93.0 fl 80.0-96.0 M EDENT ([facility] ) Mean Corpuscular Hemoglobin 29.8 pg 27.0-33.0 [facility] ([facility] ) Red Cell Distribution Width 15.9 % 11.5-14.5 [facility] ([facility] ) Mean Corpuscular HGB Conc 32.1 g/dL 32.0-36.5 [facility] ([facility] ) Neutrophils % 71.9 % 36.0-66.0 [facility] ([facility]) Platelet Count, Automated 234 10 150-450 [facility] ([facility]) Lymph % 16.8 % 24.0-44.0 [facility] ([facility]) [place] % 5.7 % 2.0-8.0 [facility] Eos % 0.1 % 0.0-3.0 [facility] ([facility] Immature Granulocyte % 4.5 % 0-3.0 [facility] ([facility]) Baso % 1.0 % 0.0-1.0 [facility] ([facility] Neutrophils # 8.2 10 1.5-8.5 [facility] Nucleated Red Blood Cell % 0.2 % 0-0 MED ENT ([facility]) Lymph # 1.9 10 1.5-5.0 [facility] ([facility]) [place] # 0.7 10 0.0-0.8 [facility] ([facility]) Baso # 0.1 10 0.0-0.2 [facility] ([facility]) Eos # 0.0 10 0.0-0.5 [facility] ([facility]) ID Date Data Source [id number] 06/02/2021 11:05:00 AM EDT [facility] ([facility]) Name Value Range Interpretation Code Description Data Danuta rce(s) Supporting Document(s) Magnesium [Mass/volume] in Serum or Plasma 2.0 mg/dL 1.8-2.4 [facility] ([facility]) Thyroxine (T4) free [Mass/volume] in Serum or Plasma 0.79 ng/dL 0.76- 1.46 [facility] ([facility]) ID Date Data Source [id number] 06/02/2021 11:05:00 AM EDT [facility] ([facility]) Name Value Range Interpretation Code Description Data Danuta rce(s) Supporting Document(s) Glucose, Fasting 149 mg/dL 70-100 [facility] ([facility]) Blood Urea Nitrogen 19 mg/dL 7-18 [facility] ([facility]) Creatinine For GFR 1.07 mg/dL 0.70-1.30 [facility] ([facility]) [facility]ular [facility]tration [facility] <content>Units are mL/min/1.73 m2</content>
<content></content>
<content>Chronic Kidney Disease Staging per NKF:</content>
<content></content>
<content>Stage I & II GFR >=60 Normal to Mildly Decreased</content>
<content>Stage III GFR 30- 59 Moderately Decreased</content>
<content>Stage IV GFR 15-29 Severely Decreased</content>
<content>Stage V GFR <15 Very Little GFR Left</content>
<content>ESRD GFR <15 on ZIPPER SETTER CHAINSTITCH</content>
<content></content> Sodium Level 139 meq/L 136-145 [facility] ([facility] Potassium Serum 4.4 meq/L 3.5-5.1 [facility] ([facility]) Chloride Level 106 meq/L 98-107 [facility] Anion Gap 6 meq/L 8-16 [facility] ([facility] Calcium Level 8.3 mg/dL 8.8-10.2 [facility] Carbon Dioxide Level 27 meq/L 21-32 [facility] ( [facility] Ast/Sgot 24 U/L 7-37 [facility] ([facility] Alt/SGPT 55 U/L 12-78 [facility] ([facility]) Total Protein 6.0 GM/DL 6.4-8.2 [facility] ([facility] Bilirubin,Total 0.4 mg/dL 0.2-1.0 [facility] ([facility]) Alkaline Phosphatase 79 U/L 45-117 [facility] ( [facility]) Albumin 3.2 GM/DL 3.2-5.2 [facility] ([facility]) Albumin/Globulin Ratio 1.1 [facility] ([facility]) ID Date Data Source [id number] 05/19/2021 02:45:00 PM EDT [facility] ([facility]) Name Value Range Interpretation Code Description Data Danuta rce(s) Supporting Document(s) Magnesium [Moles/volume] in Serum or Plasma 2.2 mg/dL 1.8-2.4 [facility] ([facility]) Thyroxine (T4) free [Mass/volume] in Serum or Plasma 0.73 ng/dL 0.76- 1.46 [facility] ([facility]) ID Date Data Source [id number] 05/19/2021 02:45:00 PM EDT [facility] ([facility]) Name Value Range Interpretation Code Description Data Danuta rce(s) Supporting Document(s) Glucose, Fasting 257 mg/dL 70-100 [facility] ([facility]) Blood Urea Nitrogen 20 mg/dL 7-18 [facility] ([facility]) Creatinine For GFR 1.25 mg/dL 0.70-1.30 [facility] ([facility]) Glomerular Filtration Rate Laboratory test result [facility] ([facility]) <content>Units are mL/min/1.73 m2</content>
<content></content>
<content>Chronic Kidney Disease Staging per NKF:</content>
<content></content>
<content>Stage I & II GFR >=60 Normal to Mildly Decreased</content>
<content>Stage III GFR 30- 59 Moderately Decreased</content>
<content>Stage IV GFR 15-29 Severely Decreased</content>
<content>Stage V GFR <15 Very Little GFR Left</content>
<content>ESRD GFR <15 on ZIPPER SETTER CHAINSTITCH</content>
<content></content> Sodium Level 138 meq/L 136-145 [facility] ([facility]) Chloride Level 104 meq/L 98-107 [facility] ([facility]) Potassium Serum 4.6 meq/L 3.5-5.1 [facility] ([facility]) Anion Gap 10 meq/L 8-16 [facility] ([facility]) Calcium Level 8.8 mg/dL 8.8-10.2 [facility] ([facility]) Carbon Dioxide Level 24 meq/L 21-32 [facility] ([facility]) Alt/SGPT 52 U/L 12-78 [facility] ([facility]) Ast/Sgot 18 U/L 7-37 [facility] ([facility]) Alkaline Phosphatase 89 U/L 45-117 [facility] ([facility]) Total Protein 6.4 GM/DL 6.4-8.2 [facility] ([facility]) Bilirubin,Total 0.3 mg/dL 0.2-1.0 [facility] ([facility]) Albumin 3.3 GM/DL 3.2-5.2 [facility] ([facility]) Albumin/Globulin Ratio 1.1 [facility] ([facility]) ID Date Data Source [id number] 05/19/2021 02:45:00 PM EDT [facility] ([facility]) Name Value Range Interpretation Code Description Data Danuta rce(s) Supporting Document(s) White Blood Count 11.6 10 4.0-10.0 [facility] ([facility]) Hemoglobin 15.7 g/dL 13.5-17.5 [facility] ([facility]) Red Blood Count 5.26 10 4.30-6.10 [facility] ([facility]) Mean Corpuscular Volume 92.8 fl 80.0-96.0 [facility] ([facility]) Mean Corpuscular Hemoglobin 29.8 pg 27.0-33.0 ME DENT ([facility]) Hematocrit 48.8 % 42.0-52.0 [facility] ([facility]) Red Cell Distribution Width 15.9 % 11.5-14.5 ME DENT ([facility]) Mean Corpuscular HGB Conc 32.2 g/dL 32.0-36.5 MEDE NT ([facility]) Platelet Count, Automated 239 10 150-450 MEDE NT ([facility]) Lymph % 13.2 % 24.0-44.0 [facility]) Neutrophils % 76.6 % 36.0-66.0 [facility] ([facility]) [place] % 4.0 % 2.0-8.0 [facility] Eos % 0.0 % 0.0-3.0 [facility] Immature Granulocyte % 5.0 % 0-3.0 [facility] ([facility]) Nucleated Red Blood Cell % 0.2 % 0-0 MED ENT ([facility]) Baso % 1.2 % 0.0-1.0 [facility]) Lymph # 1.5 10 1.5-5.0 [facility]) Neutrophils # 8.9 10 1.5-8.5 [facility] ([facility]) Baso # 0.1 10 0.0-0.2 [facility]) Eos # 0.0 10 0.0-0.5 [facility]) [place] # 0.5 10 0.0-0.8 [facility]) ID Date Data Source [id number] 04/13/2021 09:40:00 AM EDT [facility] ([facility]) Name Value Range Interpretation Code Description Data Danuta rce(s) Supporting Document(s) Blood Urea Nitrogen 16 mg/dL 7-18 [facility] ([facility]) Glucose, Fasting 209 mg/dL 70-100 [facility] ([facility]) Creatinine For GFR 0.67 mg/dL 0.70-1.30 [facility] ([facility]) Glomerular Filtration Rate Laboratory test result [facility] ([facility]) <content>Units are mL/min/1.73 m2</content>
<content></content>
<content>Chronic Kidney Disease Staging per NKF:</content>
<content></content>
<content>Stage I & II GFR >=60 Normal to Mildly Decreased</content>
<content>Stage III GFR 30- 59 Moderately Decreased</content>
<content>Stage IV GFR 15-29 Severely Decreased</content>
<content>Stage V GFR <15 Very Little GFR Left</content>
<content>ESRD GFR <15 on ZIPPER SETTER CHAINSTITCH</content>
<content></content> Potassium Serum 4.5 meq/L 3.5-5.1 [facility] ([facility]) Sodium Level 136 meq/L 136-145 [facility] Chloride Level 102 meq/L 98-107 [facility] Carbon Dioxide Level 25 meq/L 21-32 [facility] ([facility]) Calcium Level 8.0 mg/dL 8.8-10.2 [facility] ([facility]) Anion Gap 9 meq/L 8-16 [facility] ([facility] ID Date Data Source [id number] 04/13/2021 09:40:00 AM EDT [facility] ([facility]) Name Value Range Interpretation Code Description Data Danuta rce(s) Supporting Document(s) Calcidiol [Mass/volume] in Serum or Plasma 25.6 ng/mL 30.0-100.0 [facility] ([facility]) ID Date Data Source [id number] 03/05/2021 01:49:00 PM EDT [facility] ([facility]) Name Value Range Interpretation Code Description Data Danuta rce(s) Supporting Document(s) Respiratory Panel Laboratory test result [facility] ([facility]) This respiratory PCR panel detects Influ [...] - SARS-CoV-2 (COVID19) ID Date Data Source [id number] 03/05/2021 01:49:00 PM EDT [facility] Name Value Range Interpretation Code Description Data Danuta rce(s) Supporting Document(s) SARS-CoV-2 (COVID 19) NEGATIVE - SARS-CoV-2 (COVID19) [facility] This lab was ordered by [facility] a nd reported by [facility]. ID Date Data Source [id number] 03/05/2021 01:40:00 PM EDT [facility] ([facility]) Name Value Range Interpretation Code Description Data Danuta rce(s) Supporting Document(s) Bedside Glucose 160 mg/dL 80-115 [facility] ([facility]) ID Date Data Source [id number] 03/05/2021 01:35:00 PM EDT [facility] ([facility]) Name Value Range Interpretation Code Description Data Danuta rce(s) Supporting Document(s) Hemoglobin 16.9 g/dL 13.5-17.5 [facility] White Blood Count 10.3 10 4.0-10.0 [facility] ([facility]) Red Blood Count 5.58 10 4.30-6.10 [facility] ([facility]) Hematocrit 49.8 % 42.0-52.0 [facility] Mean Corpuscular Volume 89.2 fl 80.0-96.0 [facility] Mean Corpuscular Hemoglobin 30.3 pg 27.0-33.0 HI DENT ([facility]) Mean Corpuscular HGB Conc 33.9 g/dL 32.0-36.5 MEDE NT ([facility]) Platelet Count, Automated 190 10 150-450 MEDE NT ([facility]) Red Cell Distribution Width 16.1 % 11.5-14.5 HI DENT ([facility]) Nucleated Red Blood Cell % 0.0 % 0-0 [facility] ([facility]) ID Date Data Source [id number] 03/05/2021 01:35:00 PM EDT [facility] ([facility]) Name Value Range Interpretation Code Description Data Danuta rce(s) Supporting Document(s) Neutrophils 78 % 28-66 [facility] ([facility]) Bands 3 % [facility] Lymphocytes 9 % 16-44 [facility] ([facility]) Monocytes 8 % 0-5 [facility]) Atypical Lymph 1 % 0-5 [facility] ([facility]) Eosinophils 1 % 0-3 [facility] ([facility]) Anisocytosis Laboratory [facility] ID Date Data Source [id number] 03/05/2021 01:35:00 PM EDT [facility] ([facility]) Name Value Range Interpretation Code Description Data Danuta rce(s) Supporting Document(s) Platelets [#/volume] in Blood by Estimate Laboratory test result [facility] ([facility]) ID Date Data Source [id number] 03/05/2021 01:35:00 PM EDT [facility] ([facility]) Name Value Range Interpretation Code Description Data Danuta rce(s) Supporting Document(s) CPK Creatine Phosphokinase 33 U/L 39-308 [facility] ([facility]) CK-MB Value Mass Laboratory test result [facility] ([facility]) MB/CK Relative Index 3.03 [facility] ([facility]) <content>DIAGNOSIS CRITERIA</content>
<content>MMB ng/ml Relative Index (RI)</content>
<content>NON-AMI < or = 5 N/A</content>
<content>OBRIEN ZONE > 5 < or = 4</content>
<content>AMI > 5 > 4</content>
<content></content> Troponin I Laboratory test result [facility] ([facility]) <content>Troponin I Reference Interval f or [employer] [place] LOCI:</content>
<content></content>
<content>99th Percentile= 0.00-0.045 ng/ml</content>
<content></content>
<content>Risk Stratification:</content>
<content><= 0.10 ng/ml Decreased Risk for Adverse Clinical</content>
<content>Events.</content>
<content>0.10-1.50 ng/ml Increased Risk for Adverse Clinical</content>
<content>Events. Evaluation of additional</content>
<content>criterion and/or repeat testing in 2-6</content>
<content>hours is suggested to rule out myocardial</content>
<content>damage.</content>
<content>>= 1.50 ng/ml Indicative of Myocardial Injury.</content>
<content></content> ID Date Data Source [id number] 03/05/2021 01:35:00 PM EDT [facility] ([facility]) Name Value Range Interpretation Code Description Data Danuta rce(s) Supporting Document(s) Ast/Sgot 20 U/L 7-37 [facility] ([facility]) Alt/SGPT 49 U/L 12-78 [facility] Alkaline Phosphatase 88 U/L 45-117 [facility] ([facility]) Bilirubin,Total 1.0 mg/dL 0.2-1.0 [facility] ([facility]) Albumin 2.8 GM/DL 3.2-5.2 [facility] ([facility]) Bilirubin,Direct 0.4 mg/dL 0.0-0.2 [facility] ([facility]) Total Protein 5.4 GM/DL 6.4-8.2 [facility] ([facility]) Albumin/Globulin Ratio 1.1 [facility] ([facility]) ID Date Data Source [id number] 03/05/2021 01:35:00 PM EDT [facility] ([facility]) Name Value Range Interpretation Code Description Data Danuta rce(s) Supporting Document(s) Glucose, Fasting 153 mg/dL 70-100 [facility] ([facility]) Creatinine For GFR 1.11 mg/dL 0.70-1.30 [facility] ([facility]) Blood Urea Nitrogen 16 mg/dL 7-18 Significant change down [facility] ([facility]) Glomerular Filtration Rate Laboratory test result [facility] ([facility]) <content>Units are mL/min/1.73 m2</content>
<content></content>
<content>Chronic Kidney Disease Staging per NKF:</content>
<content></content>
<content>Stage I & II GFR >=60 Normal to Mildly Decreased</content>
<content>Stage III GFR 30- 59 Moderately Decreased</content>
<content>Stage IV GFR 15-29 Severely Decreased</content>
<content>Stage V GFR <15 Very Little GFR Left</content>
<content>ESRD GFR <15 on ZIPPER SETTER CHAINSTITCH</content>
<content></content> Sodium Level 126 meq/L 136-145 [facility] ([facility]) Potassium Serum 4.5 meq/L 3.5-5.1 [facility] ([facility]) Anion Gap 6 meq/L 8-16 [facility] ([facility]) Chloride Level 94 meq/L 98-107 [facility] ([facility]) Carbon Dioxide Level 26 meq/L 21-32 [facility] ([facility]) Calcium Level 8.3 mg/dL 8.8-10.2 [facility] ([facility]) ID Date Data Source [id number] 03/05/2021 01:35:00 PM EDT [facility] ([facility]) Name Value Range Interpretation Code Description Data Danuta rce(s) Supporting Document(s) Thyrotropin [Units/volume] in Serum or Plasma by Detec tion limit <= 0.05 mIU/L Laboratory test result 0.358-3.740 [facility] ([facility]) Thyroxine (T4) free [Mass/volume] in Serum or Plasma 0.75 ng/dL 0.76- 1.46 [facility] ([facility]) Magnesium [Moles/volume] in Serum or Plasma 2.0 mg/dL 1.8-2.4 [facility] ([facility]) Urate [Mass/volume] in Serum or Plasma 4.8 mg/dL 3.5-7.2 [facility] ([facility]) ID Date Data Source [id number] 03/04/2021 09:10:00 AM EDT [facility] ([facility]) Name Value Range Interpretation Code Description Data Danuta rce(s) Supporting Document(s) Glucose, Fasting 120 mg/dL 70-100 [facility] ([facility]) Blood Urea Nitrogen 9 mg/dL 7-18 [facility] ([facility]) Glomerular Filtration Rate [facility] <content>Units are mL/min/1.73 m2</content>
<content></content>
<content>Chronic Kidney Disease Staging per NKF:</content>
<content></content>
<content>Stage I & II GFR >=60 Normal to Mildly Decreased</content>
<content>Stage III GFR 30- 59 Moderately Decreased</content>
<content>Stage IV GFR 15-29 Severely Decreased</content>
<content>Stage V GFR <15 Very Little GFR Left</content>
<content>ESRD GFR <15 on ZIPPER SETTER CHAINSTITCH</content>
<content></content> Creatinine For GFR 0.83 mg/dL 0.70-1.30 [facility] ([facility]) Chloride Level 100 meq/L 98-107 [facility] ([facility]) Potassium Serum 4.3 meq/L 3.5-5.1 Significant change down MED[facility] ([facility]) Sodium Level 135 meq/L 136-145 [facility] ([facility]) Anion Gap 8 meq/L 8-16 [facility] ([facility]) Carbon Dioxide Level 27 meq/L 21-32 [facility] ([facility]) Calcium Level 8.4 mg/dL 8.8-10.2 [facility] ([facility]) ID Date Data Source [id number] 03/04/2021 09:10:00 AM EDT MED[facility] ([facility]) Name Value Range Interpretation Code Description Data Danuta rce(s) Supporting Document(s) Magnesium [Moles/volume] in Serum or Plasma 1.7 mg/dL 1.8-2.4 [facility] ([facility]) ID Date Data Source [id number] 03/04/2021 09:10:00 AM EDT MED[facility] ([facility]) Name Value Range Interpretation Code Description Data Danuta rce(s) Supporting Document(s) Calcium.ionized [Mass/volume] in Serum o r Plasma by Ion-selective membrane electrode (ISE) 4.6 mg/dL 4.5-5.3 [facility] ([facility]) ID Date Data Source [id number] 03/03/2021 10:25:00 AM EDT [facility] ([facility]) Name Value Range Interpretation Code Description Data Danuta rce(s) Supporting Document(s) Magnesium [Mass/volume] in Serum or Plasma 1.7 mg/dL 1.8-2.4 [facility] ([facility] ) ID Date Data Source [id number] 03/03/2021 10:25:00 AM EDT [facility] ([facility] ) Name Value Range Interpretation Code Description Data Danuta rce(s) Supporting Document(s) Glucose, Fasting 150 mg/dL 70-100 [facility] ([facility]) Blood Urea Nitrogen 9 mg/dL 7-18 [facility] ([facility]) Glomerular Filtration Rate Laboratory test result [facility] ([facility]) <content>Units are mL/min/1.73 m2</content>
<content></content>
<content>Chronic Kidney Disease Staging per NKF:</content>
<content></content>
<content>Stage I & II GFR >=60 Normal to Mildly Decreased</content>
<content>Stage III GFR 30- 59 Moderately Decreased</content>
<content>Stage IV GFR 15-29 Severely Decreased</content>
<content>Stage V GFR <15 Very Little GFR Left</content>
<content>ESRD GFR <15 on ZIPPER SETTER CHAINSTITCH</content>
<content></content> Creatinine For GFR 0.85 mg/dL 0.70-1.30 [facility] ([facility]) Potassium Serum 3.5 meq/L 3.5-5.1 [facility] ([facility]) Sodium Level 138 meq/L 136-145 [facility] ([facility]) Chloride Level 104 meq/L 98-107 [facility]) Carbon Dioxide Level 27 meq/L 21-32 [facility] ([facility]) Calcium Level 7.9 mg/dL 8.8-10.2 [facility] ([facility]) Anion Gap 7 meq/L 8-16 [facility] ([facility]) ID Date Data Source [id number] 03/01/2021 12:27:00 PM EDT MED[facility] ([facility]) Name Value Range Interpretation Code Description Data Danuta rce(s) Supporting Document(s) Respiratory Panel Laboratory test result MED[facility] ([facility]) This respiratory PCR panel detects Influ [...] - SARS-CoV-2 (COVID19) ID Date Data Source [id number] 03/01/2021 12:27:00 PM EDT [facility] Name Value Range Interpretation Code Description Data Danuta rce(s) Supporting Document(s) SARS-CoV-2 (COVID 19) NEGATIVE - SARS-CoV-2 (COVID19) [facility] This lab was ordered by [facility] a nd reported by [facility]. ID Date Data Source [id number] 02/27/2021 12:00:00 AM EDT [facility] Name Value Range Interpretation Code Description Data Danuta rce(s) Supporting Document(s) SARS-CoV2 Rapid Antigen Negative [facility] This lab was ordered by [facility] and reported by Jayjay Saha MD. ID Date Data Source [id number] 02/23/2021 05:14:00 PM EDT MED[facility] ([facility]) Name Value Range Interpretation Code Description Data Danuta rce(s) Supporting Document(s) Lactate [Mass/volume] in Serum or Plasma 2.4 mmol/L 0.4-2.0 Above upper panic limits MED[facility] ([facility]) Y/N query for Sepsis Lactate Rule: Y ID Date Data Source [id number] 02/23/2021 05:14:00 PM EDT [facility] ([facility]) Name Value Range Interpretation Code Description Data Danuta rce(s) Supporting Document(s) Glucose, Fasting 148 mg/dL 70-100 [facility] ([facility]) Blood Urea Nitrogen 14 mg/dL 7-18 [facility] ([facility]) Creatinine For GFR 0.89 mg/dL 0.70-1.30 [facility] ([facility]) Potassium Serum 3.6 meq/L 3.5-5.1 [facility] ([facility]) Sodium Level 143 meq/L 136-145 [facility] ([facility]) Glomerular Filtration Rate Laboratory [facility]) <content>Units are mL/min/1.73 m2</content>
<content></content>
<content>Chronic Kidney Disease Staging per NKF:</content>
<content></content>
<content>Stage I & II GFR >=60 Normal to Mildly Decreased</content>
<content>Stage III GFR 30- 59 Moderately Decreased</content>
<content>Stage IV GFR 15-29 Severely Decreased</content>
<content>Stage V GFR <15 Very Little GFR Left</content>
<content>ESRD GFR <15 on ZIPPER SETTER CHAINSTITCH</content>
<content></content> Carbon Dioxide Level 27 meq/L 21-32 [facility] ( [facility] Chloride Level 111 meq/L 98-107 [facility] ([facility]) Calcium Level 7.4 mg/dL 8.8-10.2 [facility] ([facility]) Anion Gap 5 meq/L 8-16 [facility]) ID Date Data Source [id number] 02/23/2021 02:19:00 PM EDT [facility] Name Value Range Interpretation Code Description Data Danuta rce(s) Supporting Document(s) Blood Culture Laboratory test result MED ENT ([facility]) No growth after 72 hours . All specimens observed for 5 days. Results final at that time. No growth after 48 hours . All specimens observed for 5 days. Results final at that time. No growth after 24 hours . All specimens observed for 5 days. Results final at that time. NO GROWTH AFTER 5 DAYS ID Date Data Source [id number] 02/23/2021 02:19:00 PM EDT [facility] Name Value Range Interpretation Code Description Data Danuta rce(s) Supporting Document(s) Amphetamines Level Urine Laboratory test result [facility] ([facility]) Barbiturates Urine Laboratory test result [facility] ([facility]) Benzodiazepines Urine Laboratory test result [facility] ([facility]) Cocaine Metabolite Urine Laboratory test result [facility] ([facility]) Cannabinoids Urine Laboratory test result [facility] ([facility]) Methadone Urine Laboratory test result M [facility] ([facility]) Opiates Urine Laboratory test result [facility] ([facility]) Phencyclidine Urine Laboratory [facility] ALL PRESUMPTIVE POSITIVE FINDINGS AR E UNCONFIRMED [...] CALL THE LAB. ID Date Data Source [id number] 02/23/2021 02:19:00 PM EDT [facility]) Name Value Range Interpretation Code Description Data Danuta rce(s) Supporting Document(s) Creatinine [Mass/volume] in Urine 105.0 mg/dL [facility] Osmolality of Urine 693 MOSM/KG 50-1400 [facility] ( [facility]) Sodium [Moles/volume] in Urine 111 meq/L [facility] ([facility]) ID Date Data Source [id number] 02/23/2021 02:19:00 PM EDT [facility]) Name Value Range Interpretation Code Description Data Danuta rce(s) Supporting Document(s) Appearance, Urine RFX Laboratory test result [facility]) Color, Urine RFX Laboratory test result [facility] Protein, Urine Auto RFX Laboratory test result [facility] PH,Urine RFX 6.0 units 5.0-9.0 [facility] Specific [place] Ur Auto RFX 1.020 1.002-1.035 [facility] Ketone, Urine Auto RFX Laboratory test result [facility] Glucose, Urine (Ua) Auto RFX Laboratory test result [facility] Nitrite, Urine Auto RFX Laboratory test result [facility] Bilirubin, Urine Auto RFX Laboratory test result [facility] ([facility]) Urobilinogen, Urine Auto RFX 0.2 mg/dL 0.0-2.0 [facility] Blood, Urine Blood RFX Laboratory test result [facility] Leukocyte Esterase Ur Auto RFX Laboratory test result [facility] ([facility]) WBC, Urine Auto RFX 1 /HPF 0-3 [facility] ([facility] Bacteria, Urine Auto RFX Laboratory test result [facility] RBC, Urine Auto RFX 10 /HPF 0-3 [facility] ([facility] Mucus, Urine RFX Laboratory test result [facility] ([facility]) Squam Epithelial Cell Ur Aurfx 0 /HPF 0-6 [facility] Hyaline Cast, Urine Auto RFX 0 /LPF 0-1 M [facility] ([facility] ID Date Data Source [id number] 02/23/2021 01:39:00 PM EDT [facility] ([facility]) Name Value Range Interpretation Code Description Data Danuta rce(s) Supporting Document(s) Bedside Glucose 216 mg/dL 80-115 [facility] ([facility]) ID Date Data Source [id number] 02/23/2021 01:10:00 PM EDT [facility] ([facility]) Name Value Range Interpretation Code Description Data Danuta rce(s) Supporting Document(s) Osmolality of Serum or Plasma 294 MOSM/KG 280-301 [facility] ([facility]) Salicylates [Mass/volume] in Serum or Plasma Laboratory test result 5.0-30.0 [facility] ([facility] Ethanol [Mass/volume] in Serum or Plasma Laboratory test result 0.000 -0.010 [facility] Acetaminophen [Mass/volume] in Serum or Plasma 2.7 UG/ML 10.0-30.0 [facility] Thyroxine (T4) free [Mass/volume] in Serum or Plasma 0.88 ng/dL 0.76- 1.46 [facility] Thyrotropin [Units/volume] in Serum or Plasma by Detec tion limit <= 0.05 mIU/L Laboratory test result 0.358-3.740 [facility] ([facility]) Magnesium [Moles/volume] in Serum or Plasma 1.8 mg/dL 1.8-2.4 [facility] ([facility]) ID Date Data Source [id number] 02/23/2021 01:10:00 PM EDT [facility] ([facility]) Name Value Range Interpretation Code Description Data Danuta rce(s) Supporting Document(s) Blood Urea Nitrogen 16 mg/dL 7-18 [facility] ([facility]) Glucose, Fasting 223 mg/dL 70-100 [facility] ([facility]) Glomerular Filtration Rate Laboratory test result [facility] ([facility]) <content>Units are mL/min/1.73 m2</content>
<content></content>
<content>Chronic Kidney Disease Staging per NKF:</content>
<content></content>
<content>Stage I & II GFR >=60 Normal to Mildly Decreased</content>
<content>Stage III GFR 30- 59 Moderately Decreased</content>
<content>Stage IV GFR 15-29 Severely Decreased</content>
<content>Stage V GFR <15 Very Little GFR Left</content>
<content>ESRD GFR <15 on ZIPPER SETTER CHAINSTITCH</content>
<content></content> Creatinine For GFR 1.00 mg/dL 0.70-1.30 [facility] ([facility]) Potassium Serum 3.0 meq/L 3.5-5.1 [facility] ([facility]) Chloride Level 104 meq/L 98-107 [facility] ([facility]) Sodium Level 140 meq/L 136-145 [facility] ([facility]) Anion Gap 9 meq/L 8-16 [facility]) Carbon Dioxide Level 27 meq/L 21-32 [facility] ([facility]) Calcium Level 8.5 mg/dL 8.8-10.2 [facility] ([facility]) ID Date Data Source [id number] 02/23/2021 01:10:00 PM EDT MED[facility] ([facility]) Name Value Range Interpretation Code Description Data Danuta rce(s) Supporting Document(s) Ast/Sgot 18 U/L 7-37 [facility] ([facility]) Alt/SGPT 47 U/L 12-78 [facility] ([facility]) Alkaline Phosphatase 89 U/L 45-117 [facility] ([facility]) Bilirubin,Total 0.6 mg/dL 0.2-1.0 [facility] ([facility]) Bilirubin,Direct 0.2 mg/dL 0.0-0.2 [facility] ([facility]) Total Protein 5.5 GM/DL 6.4-8.2 [facility] ([facility]) Albumin 2.8 GM/DL 3.2-5.2 [facility] ([facility]) Albumin/Globulin Ratio 1.0 [facility]) ID Date Data Source [id number] 02/23/2021 01:10:00 PM EDT MED[facility] ([facility]) Name Value Range Interpretation Code Description Data Danuta [facility](s) Supporting Document(s) CPK Creatine Phosphokinase 22 U/L 39-308 [facility] ([facility]) CK-MB Value Mass 1.2 ng/mL [facility] ([facility]) MB/CK Relative Index 5.45 [facility] ([facility]) <content>DIAGNOSIS CRITERIA</content>
<content>MMB ng/ml Relative Index (RI)</content>
<content>NON-AMI < or = 5 N/A</content>
<content>OBRIEN ZONE > 5 < or = 4</content>
<content>AMI > 5 > 4</content>
<content></content> Troponin I Laboratory test result [facility] <content>Troponin I Reference Interval f or Siemens [place] LOCI:</content>
<content></content>
<content>99th Percentile= 0.00-0.045 ng/ml</content>
<content></content>
<content>Risk Stratification:</content>
<content><= 0.10 ng/ml Decreased Risk for Adverse Clinical</content>
<content>Events.</content>
<content>0.10-1.50 ng/ml Increased Risk for Adverse Clinical</content>
<content>Events. Evaluation of additional</content>
<content>criterion and/or repeat testing in 2-6</content>
<content>hours is suggested to rule out myocardial</content>
<content>damage.</content>
<content>>= 1.50 ng/ml Indicative of Myocardial Injury.</content>
<content></content> ID Date Data Source [id number] 02/23/2021 01:10:00 PM EDT MED[facility] ([facility]) Name Value Range Interpretation Code Description Data Danuta rce(s) Supporting Document(s) Ammonia [Mass/volume] in Blood 26 uMOL/L [facility] ([facility]) Lactate [Mass/volume] in Serum or Plasma 3.9 mmol/L 0.4-2.0 Above upper panic limits [facility] ([facility]) Y/N query for Sepsis Lactate Rule: Y ID Date Data Source [id number] 02/23/2021 01:10:00 PM EDT [facility] ([facility]) Name Value Range Interpretation Code Description Data Danuta rce(s) Supporting Document(s) White Blood Count 8.0 10 4.0-10.0 [facility] ([facility]) Hemoglobin 15.7 g/dL 13.5-17.5 [facility] Red Blood Count 5.06 10 4.30-6.10 [facility] ([facility]) Mean Corpuscular Volume 93.1 fl 80.0-96.0 [facility] ([facility]) Hematocrit 47.1 % 42.0-52.0 [facility] Mean Corpuscular Hemoglobin 31.0 pg 27.0-33.0 ME [facility] ([facility]) Red Cell Distribution Width 16.3 % 11.5-14.5 [facility] ([facility]) Mean Corpuscular HGB Conc 33.3 g/dL 32.0-36.5 MEDE NT ([facility]) Platelet Count, Automated 160 10 150-450 [facility] NT ([facility]) Neutrophils % 74.6 % 36.0-66.0 [facility] ([facility]) Lymph % 14.8 % 24.0-44.0 [facility] [place] % 4.1 % 2.0-8.0 [facility] Eos % 0.0 % 0.0-3.0 [facility] Nucleated Red Blood Cell % 0.4 % 0-0 [facility] ([facility]) Immature Granulocyte % 5.0 % 0-3.0 [facility] ([facility]) Baso % 1.5 % 0.0-1.0 [facility] Lymph # 1.2 10 1.5-5.0 [facility] Neutrophils # 6.0 10 1.5-8.5 [facility] ([facility]) [place] # 0.3 10 0.0-0.8 [facility] Baso # 0.1 10 0.0-0.2 [facility] Eos # 0.0 10 0.0-0.5 [facility] ID Date Data Source [id number] 02/23/2021 01:10:00 PM EDT [facility]) Name Value Range Interpretation Code Description Data Danuta rce(s) Supporting Document(s) Blood Culture Laboratory test result [facility] No growth after 72 hours . All specimens observed for 5 days. Results final at that time. No growth after 48 hours . All specimens observed for 5 days. Results final at that time. No growth after 24 hours . All specimens observed for 5 days. Results final at that time. NO GROWTH AFTER 5 DAYS ID Date Data Source [id number] 01/26/2021 08:51:[address] [facility]) Name Value Range Interpretation Code Description Data Danuta rce(s) Supporting Document(s) Testosterone [Mass/volume] in Serum or Plasma 201 ng/dL [id number] [facility] ([facility]) NORMAL RANGES ARE FOR ADULT FEMALES (OVE R 15 YRS) AND MALES (OVER 19 YRS). FOR PEDIATRIC RANGES PLE ASE CONSULT LITERATURE. ID Date Data Source [id number] 01/26/2021 08:50:00 AM EDT MED[facility] ([facility]) Name Value Range Interpretation Code Description Data Danuta rce(s) Supporting Document(s) Thyroxine (T4) free [Mass/volume] in Serum or Plasma 0.93 ng/dL 0.76- 1.46 [facility] ([facility]) ID Date Data Source [id number] 01/26/2021 08:50:00 AM EDT [facility] ([facility]) Name Value Range Interpretation Code Description Data Danuta rce(s) Supporting Document(s) Glucose mean value [Mass/volume] in Blood Estimated fr om glycated hemoglobin 140 mg/dL 60-110 [facility] ([facility] ) Hemoglobin A1c/Hemoglobin.total in Blood 6.5 % [facility] ([facility]) Lab Result Notes: Pre-Diabetes 5.7 - 6.4 % Diabetes = or > 6.5% ID Date Data Source [id number] 01/26/2021 08:50:00 AM EDT [facility] ([facility]) Name Value Range Interpretation Code Description Data Danuta rce(s) Supporting Document(s) Glucose [Mass/volume] in Serum or Plasma 248 mg/dL 74-99 [facility] ([facility]) 100-125 mg/dL PRE-DIABETES/FASTING >126 mg/dL DIABETES/FASTING Urea nitrogen [Mass/volume] in Serum or Plasma 19 mg/dL 7-18 [facility] ([facility]) Creatinine 1.1 mg/dL 0.6-1.3 [facility] Sodium [Moles/volume] in Serum or Plasma 141 meq/L 136-145 [facility] ([facility]) Potassium [Moles/volume] in Serum or Plasma 3.2 meq/L 3.5-5.1 [facility] ([facility]) Chloride [Moles/volume] in Serum or Plasma 102 meq/L 98-107 [facility] ([facility]) Calcium [Mass/volume] in Serum or Plasma 8.2 mg/dL 8.5-10.1 [facility] ([facility]) Carbon dioxide, total [Moles/volume] in Serum or Plasma 25 meq/L 21 -32 [facility] ([facility]) Alkaline phosphatase isoenzyme [Units/volume] in Serum or Pl asma 110 mg/dL 46-116 [facility] ([facility]) Total Bilirubin 0.6 mg/dL 0.2-1.0 [facility] ([facility]) Aspartate aminotransferase [Enzymatic activity/volume] in Serum or Plasma 22 U/L 15-37 [facility] ([facility] ) Albumin [Mass/volume] in Serum or Plasma 2.8 g/dL 3.4-5.0 [facility] ([facility]) Alanine aminotransferase [Enzymatic activity/volume] in Seru m or Plasma 70 U/L 12-78 [facility] ([facility]) A/G Ratio 0.93 CALC 1.00-1.90 [facility]) Proteinase 3 Ab [Units/volume] in Serum 5.8 g/dL 6.4-8.2 [facility] ([facility]) Glomerular filtration rate/1.73 sq M pre dicted among non-blacks [Volume Rate/Area] in Serum or Plasma by Creatinine-based formula (MDRD) Laboratory test result [facility] ([facility] ) Glomerular filtration rate/1.73 sq M pre dicted among blacks [Volume Rate/Area] in Serum or Plasma by Creatinine-based formula (MDRD) Laboratory test result [facility] ([facility]) <content>CHRONIC KIDNEY DISEASE STAGING PER NKF</content>
<content></content>
<content>STAGE I & II GFR >= 60 NORMAL TO MILDLY DECREASED</content>
<content>STAGE III GFR 30-59 MODERATELY DECREASED</content>
<content>STAGE IV GFR 15-29 SEVERELY DECREASED</content>
<content>STAGE V GFR <15 VERY LITTLE GFR LEFT</content>
<content>ESRD GFR <15 ON ZIPPER SETTER CHAINSTITCH</content>
<content></content> ID Date Data Source [id number] 01/26/2021 08:50:00 AM EDT [facility] ([facility]) Name Value Range Interpretation Code Description Data Danuta rce(s) Supporting Document(s) Erythrocytes [#/volume] in Blood by Automated count 4.97 x10*6/UL 4.2 0-6.30 [facility] ([facility]) Leukocytes [#/volume] in Blood by Automated count 13.0 x10*3/UL 4.1-1 0.9 [facility] ([facility]) NOTE: CBC VERIFIED Hematocrit [Volume Fraction] of Blood by Automated count 45.1 % 3 7.0-51.0 [facility] ([facility]) Hemoglobin [Mass/volume] in Blood 15.1 g/dL 12.0-18.0 [facility] ([facility]) MCH 30.4 pg 26.0-32.0 [facility] MCV 90.8 fL 80.0-97.0 [facility] MCHC 33.5 g/dL 31.0-38.0 [facility] Erythrocyte distribution width [Ratio] by Automated count 15.3 % 11.6-13.7 [facility] ([facility]) Platelets [#/volume] in Blood by Automated count 187 x10*3/UL 140-440 [facility] ([facility]) Lymph % 10.8 % 10.0-58.5 [facility] MPV 8.3 FL 7.8-11.0 [facility] Neut % 85.6 % 37.0-92.0 [facility] Mid % 3.6 % 1.7-9.3 [facility] Neut # 11.2 x10*3/UL 2.0-7.8 [facility] ([facility]) Mid # 0.4 x10*3/UL 0.1-0.6 [facility] ([facility]) Lymph # 1.4 x10*3/UL 0.6-4.1 [facility] ([facility]) ID Date Data Source [id number] 01/13/2021 02:50:00 PM EDT [facility] Name Value Range Interpretation Code Description Data Danuta rce(s) Supporting Document(s) SARS-CoV-2 (COVID-19) Negative [facility] This lab was ordered by [facility] and reported by [employer]. ID Date Data Source [id number] 01/08/2021 03:17:00 PM EDT [facility] ([facility]) Name Value Range Interpretation Code Description Data Danuta rce(s) Supporting Document(s) Glucose, Fasting 226 mg/dL 70-100 [facility] ([facility]) Blood Urea Nitrogen 15 mg/dL 7-18 [facility] ([facility]) Glomerular Filtration Rate Laboratory test result [facility] ([facility]) <content>Units are mL/min/1.73 m2</content>
<content></content>
<content>Chronic Kidney Disease Staging per NKF:</content>
<content></content>
<content>Stage I & II GFR >=60 Normal to Mildly Decreased</content>
<content>Stage III GFR 30- 59 Moderately Decreased</content>
<content>Stage IV GFR 15-29 Severely Decreased</content>
<content>Stage V GFR <15 Very Little GFR Left</content>
<content>ESRD GFR <15 on ZIPPER SETTER CHAINSTITCH</content>
<content></content> Sodium Level 139 meq/L 136-145 [facility] ([facility]) Creatinine For GFR 1.09 mg/dL 0.70-1.30 [facility] ([facility]) Chloride Level 103 meq/L 98-107 [facility] ([facility]) Potassium Serum 3.8 meq/L 3.5-5.1 [facility] ([facility]) Anion Gap 6 meq/L 8-16 [facility] Carbon Dioxide Level 30 meq/L 21-32 [facility] Calcium Level 7.9 mg/dL 8.8-10.2 [facility] ([facility]) ID Date Data Source [id number] 01/08/2021 03:17:00 PM EDT [facility] ([facility]) Name Value Range Interpretation Code Description Data Danuta rce(s) Supporting Document(s) Magnesium [Moles/volume] in Serum or Plasma 2.3 mg/dL 1.8-2.4 [facility] ([facility]) ID Date Data Source [id number] 01/08/2021 03:17:00 PM EDT [facility] ([facility] Name Value Range Interpretation Code Description Data Danuta rce(s) Supporting Document(s) Blood Urea Nitrogen 16 mg/dL 7-18 [facility] ([facility]) Creatinine For GFR 1.11 mg/dL 0.70-1.30 [facility] ([facility] Glucose, Fasting 237 mg/dL 70-100 [facility] ([facility] Glomerular Filtration Rate [facility] <content>Units are mL/min/1.73 m2</content>
<content></content>
<content>Chronic Kidney Disease Staging per NKF:</content>
<content></content>
<content>Stage I & II GFR >=60 Normal to Mildly Decreased</content>
<content>Stage III GFR 30- 59 Moderately Decreased</content>
<content>Stage IV GFR 15-29 Severely Decreased</content>
<content>Stage V GFR <15 Very Little GFR Left</content>
<content>ESRD GFR <15 on ZIPPER SETTER CHAINSTITCH</content>
<content></content> Sodium Level 141 meq/L 136-145 [facility] ([facility]) Chloride Level 103 meq/L 98-107 [facility] ([facility]) Potassium Serum 3.9 meq/L 3.5-5.1 [facility] ([facility]) Carbon Dioxide Level 30 meq/L 21-32 [facility] ([facility]) Ast/Sgot 21 U/L 7-37 [facility] Anion Gap 8 meq/L 8-16 [facility] Calcium Level 8.3 mg/dL 8.8-10.2 [facility] ([facility]) Alkaline Phosphatase 126 U/L 45-117 [facility] ([facility]) Alt/SGPT 62 U/L 12-78 [facility]) Total Protein 5.3 GM/DL 6.4-8.2 [facility] ([facility]) Bilirubin,Total 0.5 mg/dL 0.2-1.0 [facility] ([facility]) Albumin 2.6 GM/DL 3.2-5.2 [facility] ([facility]) Albumin/Globulin Ratio 1.0 [facility] ([facility]) ID Date Data Source [id number] 12/17/2020 09:08:57 AM [facility] MR BRAIN WITH AND WITHOUT CONTRAST [id number] FINAL RESULTInterpreted by:Gordon Lezama MD12/16/2020 4:12 PM MR BRAIN WITH AND WITHOUT CONTRAST [id number] 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
<content></content>
<content>Chronic Kidney Disease Staging per NKF:</content>
<content></content>
<content>Stage I & II GFR >=60 Normal to Mildly Decreased</content>
<content>Stage III GFR 30- 59 Moderately Decreased</content>
<content>Stage IV GFR 15-29 Severely Decreased</content>
<content>Stage V GFR <15 Very Little GFR Left</content>
<content>ESRD GFR <15 on ZIPPER SETTER CHAINSTITCH</content>
<content></content> Blood Urea Nitrogen 29 mg/dL 7-18 [facility] ([facility]) Creatinine For GFR 1.19 mg/dL 0.70-1.30 [facility] ([facility]) Sodium Level 137 meq/L 136-145 [facility] Potassium Serum 4.2 meq/L 3.5-5.1 [facility] ([facility]) Chloride Level 100 meq/L 98-107 [facility] Carbon Dioxide Level 33 meq/L 21-32 [facility]) Calcium Level 9.2 mg/dL 8.8-10.2 [facility] Anion Gap 4 meq/L 8-16 [facility] ID Date Data Source [id number] 10/31/2020 01:10:00 PM EST [facility] ([facility]) Name Value Range Interpretation Code Description Data Danuta rce(s) Supporting Document(s) Glucose, Fasting 100 mg/dL 70-100 [facility] ([facility]) Blood Urea Nitrogen 29 mg/dL 7-18 [facility] ([facility]) Creatinine For GFR 1.19 mg/dL 0.70-1.30 [facility] ([facility]) Glomerular Filtration Rate Laboratory test result [facility] ([facility]) <content>Units are mL/min/1.73 m2</content>
<content></content>
<content>Chronic Kidney Disease Staging per NKF:</content>
<content></content>
<content>Stage I & II GFR >=60 Normal to Mildly Decreased</content>
<content>Stage III GFR 30- 59 Moderately Decreased</content>
<content>Stage IV GFR 15-29 Severely Decreased</content>
<content>Stage V GFR <15 Very Little GFR Left</content>
<content>ESRD GFR <15 on ZIPPER SETTER CHAINSTITCH</content>
<content></content> Sodium Level 137 meq/L 136-145 [facility] ([facility]) Potassium Serum 4.2 meq/L 3.5-5.1 [facility] ([facility]) Chloride Level 100 meq/L 98-107 [facility] ([facility]) Carbon Dioxide Level 33 meq/L 21-32 [facility] ([facility]) Anion Gap 4 meq/L 8-16 [facility]) Calcium Level 9.2 mg/dL 8.8-10.2 [facility] ([facility]) ID Date Data Source [id number] 10/27/2020 05:18:00 AM EST [facility] Name Value Range Interpretation Code Description Data Danuta rce(s) Supporting Document(s) SARS coronavirus 2 RNA [Presence] in Res piratory specimen by YENNI with probe detection NEGATIVE [facility] This lab was ordered by [facility] a nd reported by [facility]. ID Date Data Source [id number] 10/24/2020 08:53:02 AM EST [facility] Name Value Range Interpretation Code Description Data Danuta rce(s) Supporting Document(s) Progress Note [facility] QZCHNt7yUrDGRzTm12/SVFbuAREzz8VaLJrmRYk5WQkyYGIoL1KtDTS2dW0xCVE4MQlALxSfMyWdDFG3 lbm [file] 0gDQo+Kw3Zw8HbowD4xrUcZBuyRBL7Xq4EINEOQ8UIAp== ID Date Data Source [id number] 09/25/2020 03:06:00 PM EST [facility] ([facility]) Name Value Range Interpretation Code Description Data Danuta rce(s) Supporting Document(s) Hemoglobin 17.7 g/dL 13.5-17.5 [facility] ([facility]) Red Blood Count 6.04 10 4.30-6.10 [facility] ([facility]) White Blood Count 9.6 10 4.0-10.0 [facility] ([facility]) Mean Corpuscular Volume 92.1 fl 80.0-96.0 M [facility] ([facility]) Hematocrit 55.6 % 42.0-52.0 [facility] ([facility]) Mean Corpuscular Hemoglobin 29.3 pg 27.0-33.0 [facility] ([facility]) Platelet Count, Automated 306 10 150-450 [facility] ([facility]) Mean Corpuscular HGB Conc 31.8 g/dL 32.0-36.5 [facility] ([facility]) Red Cell Distribution Width 14.8 % 11.5-14.5 [facility] ([facility]) Nucleated Red Blood Cell % 0.0 % 0-0 [facility] ([facility]) ID Date Data Source [id number] 09/25/2020 03:06:00 PM EST [facility] ([facility]) Name Value Range Interpretation Code Description Data Danuta rce(s) Supporting Document(s) Creatinine For GFR 1.27 mg/dL 0.70-1.30 [facility] ([facility]) Glucose, Fasting 141 mg/dL 70-100 [facility] ([facility]) Blood Urea Nitrogen 21 mg/dL 7-18 [facility] ([facility]) Potassium Serum 3.8 meq/L 3.5-5.1 [facility] ([facility]) Sodium Level 138 meq/L 136-145 [facility]) Glomerular Filtration Rate 59.9 [facility] ([facility]) <content>Units are mL/min/1.73 m2</content>
<content></content>
<content>Chronic Kidney Disease Staging per NKF:</content>
<content></content>
<content>Stage I & II GFR >=60 Normal to Mildly Decreased</content>
<content>Stage III GFR 30- 59 Moderately Decreased</content>
<content>Stage IV GFR 15-29 Severely Decreased</content>
<content>Stage V GFR <15 Very Little GFR Left</content>
<content>ESRD GFR <15 on ZIPPER SETTER CHAINSTITCH</content>
<content></content> Carbon Dioxide Level 32 meq/L 21-32 [facility]) Anion Gap 4 meq/L 8-16 [facility] ([facility] Chloride Level 102 meq/L 98-107 [facility] Calcium Level 9.2 mg/dL 8.8-10.2 [facility] ID Date Data Source [id number] 09/25/2020 03:06:00 PM EST [facility] ([facility]) Name Value Range Interpretation Code Description Data Danuta rce(s) Supporting Document(s) Testosterone [Mass/volume] in Serum or Plasma 522 ng/dL 241-827 [facility] ([facility]) NORMAL RANGES ARE FOR ADULT FEMALES (OVE R 15 YRS) AND MALES (OVER 19 YRS). FOR PEDIATRIC RANGES PLE ASE CONSULT LITERATURE. Thyroxine (T4) free [Mass/volume] in Serum or Plasma 0.90 ng/dL 0.76- 1.46 [facility] ([facility]) ID Date Data Source [id number] 09/18/2020 05:37:00 PM EST [facility] Name Value Range Interpretation Code Description Data Danuta rce(s) Supporting Document(s) Progress Note [facility] KKRVKq3sQmZZAyFk66/GALdaTBXco7YyIPtsJLk2RBemPCEoO0FqWNR6dM4sPGG6SZpOMjZeKrQfKaFc lbm [file] 5IcC0+PHBmbJr/jBBmbJr/jBBmbJr/pYDlglJ7vT5gw+lAVGfmgw/oPtZtTNykCRU6pf3/KRY8vHv/Jose G [file] PkQfRB7SMHz= ID Date Data Source [id number] 09/18/2020 02:01:31 PM [facility] Name Value Range Interpretation Code Description Data Danuta rce(s) Supporting Document(s) Consultation [facility] TJYIOw9fCcQPIlNs29/KIAfvRMDlf6NpPFgzRRo2UFhnFJZjQ6EoIIT5jH9aOJV4OXoFGeHfUxKfMxOe lbm [file] KzW3UPv9PUmaZCQSXq8Y ID Date Data Source [id number] 09/15/2020 06:04:04 PM [facility] Name Value Range Interpretation Code Description Data Danuta rce(s) Supporting Document(s) Consultation [facility] LSRQBu7zQxRLYkWz19/ZIKuiVGZzc2ErYZgxQJo1LKydVGLhD6MvSYV8zL1fJJT3WPzAPyZuFoNpAEIf lbm [file] rwJsYCMPyNRwDEgBMQuiyaRnxtXzzXCjqJ/FGzqWlW p1coYvXf2DzNW4Fs/cwL9Mk/e6xwavZg+oye8NylBh4VRxiGs7Iptvhoo2iOWt8LVZmJoYv4gqM8StfA UglIrjmhedaiQlD3nJxojEjdc8Fdb1HfJdunxFDHhgVcXh3GJnOVrQQr1Qona31CutHNdeXuW/oQOOmy L5mtIpP62g6VdRYfapDikXZO0i96Rt1DCF3UJv/SV6 UecmFC6rzMNpttAnaGW298+owE2nGyqLqGsazVNIMkErN3GyyWJ5f8YxyXntpG8qJK9B/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 [file] AgICAgICAgICAgICAgICAgICAgICAgICAgICAgICAgICAgICAgICAgICAgICAgICAgICAgICAgICAgIC AgICAgICAgICAgICAgICAgICAgICAgICAgDQogICAgICAgICAgICAgICAgICAgICAgICAgICAgICAgIC AgICAgICAgICAgICAgICAgICAgICAgICAgICAgICAg ICAgICAgICAgICAgICAgICAgICAgICAgICAgICAgICAgICAgDQogICAgICAgICAgICAgICAgICAgICAg ICAgICAgICAgICAgICAgICAgICAgICAgICAgICAgICAgICAgICAgICAgICAgICAgICAgICAgICAgICAg ICAgICAgICAgICAgICAgICAgDQogICAgICAgICAgIC AgICAgICAgICAgICAgICAgICAgICAgICAgICAgICAgICAgICAgICAgICAgICAgICAgICAgICAgICAgIC AgICAgICAgICAgICAgICAgICAgICAgICAgICAgDQogICAgICAgICAgICAgICAgICAgICAgICAgICAgIC AgICAgICAgICAgICAgICAgICAgICAgICAgICAgICAg ICAgICAgICAgICAgICAgICAgICAgICAgICAgICAgICAgICAgICAgDQogICAgICAgICAgICAgICAgICAg ICAgICAgICAgICAgICAgICAgICAgICAgICAgICAgICAgICAgICAgICAgICAgICAgICAgICAgICAgICAg ICAgICAgICAgICAgICAgICAgICAgDQogICAgICAgIC AgICAgICAgICAgICAgICAgICAgICAgICAgICAgICAgICAgICAgICAgICAgICAgICAgICAgICAgICAgIC AgICAgICAgICAgICAgICAgICAgICAgICAgICAgICAgDQogICAgICAgICAgICAgICAgICAgICAgICAgIC AgICAgICAgICAgICAgICAgICAgICAgICAgICAgICAg ICAgICAgICAgICAgICAgICAgICAgICAgICAgICAgICAgICAgICAgICAgDQogICAgICAgICAgICAgICAg ICAgICAgICAgICAgICAgICAgICAgICAgICAgICAgICAgICAgICAgICAgICAgICAgICAgICAgICAgICAg ICAgICAgICAgICAgICAgICAgICAgICAgDQogICAgIC AgICAgICAgICAgICAgICAgICAgICAgICAgICAgICAgICAgICAgICAgICAgICAgICAgICAgICAgICAgIC YjIUBoUFCyMYXqNLCyLWSjUESxLEJoQXLyANAmMRQwWIJwXHm2X8knZFCsJJThYZ5fJKr8Xv3+DQoNCm VbUPP3tiFheL6ZMQ4sl5SxNXgvDLBgk6PtTGm3QC7H RTPhTUfmHG9ZPMihwg2SYQQoCDVbrZZQw2qmSwPhMLN1QDZeCqfnGR7SHFCeJ3okzaNdCVLqPNFYGHld EFXATBmcLHNRSICpGDNhJeBwZdOtOQDuWM3VFCOaZ205fkUgAU4GHs9OHvPjPL3xue0VPpQuNMEkLuzM Say3GAqfKV6GzEGoaUKiMMSnVLDYFjFnJ2djy7HnQo McEMBURDzbWT4Uc6RmxDGkQWq+Ln9WSH9zl3VvVHzdVYUzFA1gkw5XEPrKUjFvZ0VkvVwhZACwqoN1nY OuYST2RGTedHcqhBMCtmfcvL0fuJUquWf2ZREWLJRaeOYeLI3wQP1bJJKjLMShNoZ7KQIFNV5GHJPtVP ZnyHImRSKbCSSTWW4OOOfzHEA6PFZmalUjpBNuLCaa RD1ZJHUhruUsBtYtVUFJUTl+Ry2KQL8ti5DiRQbyQTBwMT8ycx5JQEdXYfNgY2I4bEPeY3Q6JVvjYk1W ZUEzVIPfJmEzOQHFHSjvDD3AFU9oakW8NY9JuYAmQPXfQSCrbWRiZKm8W25asIEaNGrdCC3DEIE+Ronny+ Zq9MEZYaGOMuBPFuEeRwOQEBOeKhB5XcL8OXl3QeZ2 PjAM79fFdouiIrUBhaVQ4YPN0jLNCuPCLNVQ0McYJzkB3rbkKzXbOnXLSLKlDgI22bgVBrSVTbYRPeTL YyWf2NFFUfD5ZudmNxwRlgdoIaMMPhWJOUDP9FNVgdltFnsMEeoCtrKP04mZizYI8MGx9YBtAaCO8wjz 7FqSVbRa9VLMPmNh2BACHgZRDoZJYuHKZ0BPXcGiZj OLmmCNEfPJJpFJJ4BLCoZKMrJY5COfOyUVRuAyP1ZCsdRTLnBBYgxc1WAHLsAUTcExVqWWYkSPMjIPTn KUaeTAItEUSsKJE7ODXoWFLbUT8FYkPhLCAmCHIbJDGmSRGpUPWqjn2NQXKeLHGjAVTfAqGiPEBuFYYc ZSgzQLOuDNT7ChF1LOOvVWNfSE5QUfTdKQHgICQ3Uz HfLYOvQGZmyn5LNGPrZKJwUCDiOQNbAVZvSOYbTVwgZWNiHOH0FND0MUCvTUFlXD5RKxCaMRKcMJX2SY jgADZgAGDmff9GZLSkIAQfWNo5CMUcSGEyXIZbLNzfYAIcSJZsXagiBCKiHEEgJE0YYnDrRWXmMZZ3MT lbCKOqHEZloc2MUBXfZXElYva3EKCdXRPjFOJcPXdb WMLcFZB8GAE2MCKrUMGmSA5AAqXwNNWsGHAdOtwhDMFkAHLuly2AVBNeNVCrPEB0FBMwQDLkGEFrLCif FYCsODU1WCIkJNVaBAPsIX4PMtWkGRAnUVY5GJtbXMPxJHOmuj2HEHYwSNPpBaF9ZMWpHFNqQZUlFQlh RLUjFMV1QAN4APLgUNWyBN4LKmRbKIFrXTnmGtdlJS EfBZWbsj6DVCYqJMBmEYFeWeKjPOShEZVgQNrdBVYkTJR1QcLdDJJdPNNtGW0IJbBjHAVdUxw6NHBkSZ UcYPIyka3WYKXxGBAaWUE7XTTlVJAsBFYqWSmyHEHpMEK9GjG4DKYaURPiXZ0AQmUkOJNzXoUoWthoUO UqKEMbni9RUBTnHBQxZFR8PnOzBSRcUPRwFAggHOMs FKYoMsP4FETvTDCyVJ4GQpJeSVUpLaSvIzzjJVWfWXHcov8UHWIeCQGbJzJmXpLnTZGjDDXmMQpnBNTf ZSYsGnNeVWKiTYPxRI1FMuPbRHTzNpH1XCYcLCVuTLIafr3HzFAwpRncvd2ANYxIWa9XkFpqKFD1ANkv Pt4pyBZyOAGdHCIYIy3XezEmUNJuPOGOXAzpKPEoRS YqWEB4LqEmNkS8YXBrEHxqOUD3VFQfAxNmVCMvSPg4AtN0AhNaMnyxONYvKITvTXIwVTCyMlEvAnHdOB RhZmMwODc+IK9vDFm+Rt4Nz8ElkuL9ebFgRNvaCue2Wt4UDFQWW6LNTu== ID Date Data Source [id number] 09/14/2020 11:39:44 PM EST [facility] Name Value Range Interpretation Code Description Data Danuta rce(s) Supporting Document(s) ED Provider Note [facility] MTRCSi7lApZPMaJc51/WKXckTFCpb8QjGLktIMc5BYntXUNsM4GzUBS9gK5lKQP8EAtKClOxPzCfOSQ7 lbm [file] N2DmSXPsGxBK1XYHl= ID Date Data Source [id number] 09/14/2020 08:12:39 PM [facility] MR BRAIN WITH AND WITHOUT CONTRAST [id number] FINAL RESULTInterpreted by:Zully Hauser DOINDICATION: known pituitary [...] rce(s) Supporting Document(s) ID Date Data Source [id number] 09/14/2020 08:12:39 PM [facility] MR ORBIT WITH AND WITHOUT CONTRAST [id number] FINAL RESULTInterpreted by:Zully Hauser, DOINDICATION: known pituitary [...] rce(s) Supporting Document(s) ID Date Data Source [id number] 09/14/2020 06:08:58 PM EST [facility] Name Value Range Interpretation Code Description Data Danuta rce(s) Supporting Document(s) ED Provider Note [facility] GAWCSp0zGlVGWoZd31/UQNxtIMZel8WdPPzfFWs3OSqbPQSxS4PrAJO7dN4kQLY6TNwRUwUjEkWmBOB0 lbm [file] liGLqznm+hT3eITtzLZFg5QSH4YsNbQphbaGMli/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 [file] SbvZxwVBQVPur4GaMsHZufHLOGFd3R ID Date Data Source [id number] 09/14/2020 02:14:08 PM [facility] CT HEAD WITHOUT CONTRAST [id number] RESU LTInterpreted by:Zully Hauser DOINDICATION: headache.TECHNIQUE: Multidetector [...] Date Data Source [id number] 09/14/2020 01:24:04 PM [facility] Name Value Range Interpretation Code Description Data Danuta rce(s) Supporting Document(s) Leukocytes [#/volume] in Blood by Automated count 8.6 10*3/uL 4-10 [facility] Erythrocytes [#/volume] in Blood by Automated count 5.26 10*6/uL 4.6- 6.1 [facility] Hemoglobin [Mass/volume] in Blood 15.8 g/dL 13.5-18 [facility] Hematocrit [Volume Fraction] of Blood by Automated count 46.7 % 4 1-53 [facility] Erythrocyte mean corpuscular volume [Entitic volume] by Auto mated count 88.8 fL 80-96 [facility] Erythrocyte mean corpuscular hemoglobin [Entitic mass] by Automated count 30.0 pg 27-33 [facility] Erythrocyte mean corpuscular hemoglobin concentration [Mass/volume] by Automated count 33.8 g/dL 32.0-36.0 [facility] width [Ratio] by Automated count 15.0 % 11.5-14.5 H [facility] Platelets [#/volume] in Blood by Automated count 231 10*3/uL 150-400 [facility] Differential cell count method - Blood [facility] Neutrophils/100 leukocytes in Blood by Automated count 78 % [facility] Lymphocytes/100 leukocytes in Blood by Automated count 17 % [facility] Monocytes/100 leukocytes in Blood by Automated count 5 % [facility] Eosinophils/100 leukocytes in Blood by Automated count 0 % [facility] Basophils/100 leukocytes in Blood by Automated count 0 % [facility] Neutrophils [#/volume] in Blood by Automated count 6.67 10*3/uL 1.8-7 .0 [facility] Lymphocytes [#/volume] in Blood by Automated count 1.41 10*3/uL 1.2-4 .0 [facility] Monocytes [#/volume] in Blood by Automated count 0.43 10*3/uL 0-0.8 [facility] Eosinophils [#/volume] in Blood by Automated count 0.02 10*3/uL 0-0.5 [facility] Basophils [#/volume] in Blood by Automated count 0.03 10*3/uL 0-0.2 [facility] Nucleated erythrocytes/100 leukocytes [Ratio] in Blood by Automated count 0 /100{WBCs} 0-0 [facility] ID Date Data Source [id number] 09/14/2020 01:38:19 PM [facility] Name Value Range Interpretation Code Description Data Danuta rce(s) Supporting Document(s) Bicarbonate [Moles/volume] in Serum 27 mmol/L -29 [facility] Chloride [Moles/volume] in Serum or Plasma 106 mmol/L 98-107 [facility] Creatinine [Mass/volume] in Serum or Plasma 1.01 mg/dL 0.70-1.20 [facility] Glucose [Mass/volume] in Serum or Plasma 100 mg/dL 70-140 [facility] Potassium [Moles/volume] in Serum or Plasma 3.6 mmol/L 3.4-5.1 [facility] Sodium [Moles/volume] in Serum or Plasma 144 mmol/L 136-145 [facility] Urea nitrogen [Mass/volume] in Serum or Plasma 16 mg/dL 8-23 [facility] Anion gap 3 in Serum or Plasma 11 mmol/L 8-15 [facility] Osmolality of Serum or Plasma by calculation 299 mosm/kg 275-300 [facility] Creatinine/Urea nitrogen [Mass Ratio] in Serum or Plasma 16 [facility] Calcium [Mass/volume] in Serum or Plasma 8.8 mg/dL 8.8-10.2 [facility] Glomerular filtration rate/1.73 sq M pre dicted among non-blacks [Volume Rate/Area] in Serum or Plasma by Creatinine-based formula (MDRD) 74 mL/min/1.73m2 >60 [facility] Glomerular filtration rate/1.73 sq M pre dicted among blacks [Volume Rate/Area] in Serum or Plasma by Creatinine-based formula (MDRD) 86 mL/min/1.73m2 >60 [facility] ID Date Data Source [id number] 09/14/2020 04:55:40 PM [facility] Name Value Range Interpretation Code Description Data Danuta rce(s) Supporting Document(s) C reactive protein [Mass/volume] in Serum or Plasma 14.7 mg/L <8.0 H [facility] ID Date Data Source [id number] 09/14/2020 05:11:26 PM [facility] Value Range Interpretation Code Description Data Danuta rce(s) Supporting Document(s) Erythrocyte sedimentation rate 16 mm/hr <20 [facility] ID Date Data Source [id number] 09/14/2020 07:21:21 PM [facility] Value Range Interpretation Code Description Data Danuta rce(s) Supporting Document(s) Color of Urine [facility] Clarity of Urine [facility] Specific gravity of Urine by Refractometry automated 1.035 1.003 -1.030 H [facility] pH of Urine by Automated test strip 5.0 5.0-8.0 [facility] Protein [Mass/volume] in Urine by Automated test strip 100 mg/dL Neg ative A [facility] Glucose [Mass/volume] in Urine by Automated test strip Neg [facility] Ketones [Mass/volume] in Urine by Automated test strip 5 mg/dL Neg [facility] Bilirubin.total [Presence] in Urine by Automated test strip Negative [facility] Hemoglobin [Presence] in Urine by Automated test strip Neg [facility] Leukocyte esterase [Presence] in Urine by Automated test strip Negative [facility] Nitrite [Presence] in Urine by Automated test strip Negati [facility] Leukocytes [#/area] in Urine sediment by Automated count 9 /HPF 0 -5 H [facility] Erythrocytes [#/area] in Urine sediment by Automated count 19 /HPF 0-3 H [facility] Epithelial cells.squamous [#/area] in Urine sediment by Auto mated count 1 /HPF None [facility] Mucus [#/area] in Urine sediment by Microscopy low power field None [facility] Crystals.amorphous [#/area] in Urine sediment by Microscopy high power field None [facility] ID Date Data Source [id number] 09/08/2020 03:19:00 PM EST [facility] ([facility]) Name Value Range Interpretation Code Description Data Danuta rce(s) Supporting Document(s) Prostate specific Ag [Mass/volume] in Serum or Plasma 2.41 ng/mL [facility] This assay was performed on the Siemens Dimension EXL using the B- Galactosidase/CPRG methodology and should not be compared interchangeably with other methods. The PSA should not be used alone as a screening test for the presence or absence of malignant disease. ID Date Data Source [id number] 09/08/2020 03:19:00 PM EST [facility] ([facility]) Name Value Range Interpretation Code Description Data Danuta rce(s) Supporting Document(s) Glucose [Mass/volume] in Serum or Plasma 127 mg/dL 74-99 [facility] ([facility]) 100-125 mg/dL PRE-DIABETES/FASTING >126 mg/dL DIABETES/FASTING Urea nitrogen [Mass/volume] in Serum or Plasma 14 mg/dL 7-18 [facility] ([facility]) Creatinine 1.1 mg/dL 0.6-1.3 [facility] Sodium [Moles/volume] in Serum or Plasma 145 meq/L 136-145 [facility] ([facility]) Potassium [Moles/volume] in Serum or Plasma 3.5 meq/L 3.5-5.1 [facility] ([facility]) Chloride [Moles/volume] in Serum or Plasma 106 meq/L 98-107 [facility] Carbon dioxide, total [Moles/volume] in Serum or Plasma 32 meq/L 21 -32 [facility] ([facility]) Calcium [Mass/volume] in Serum or Plasma 8.4 mg/dL 8.5-10.1 [facility] ([facility]) Alkaline phosphatase isoenzyme [Units/volume] in Serum or Pl asma 113 mg/dL 46-116 [facility] Total Bilirubin 0.4 mg/dL 0.2-1.0 [facility] ([facility]) Aspartate aminotransferase [Enzymatic activity/volume] in Serum or Plasma 15 U/L 15-37 [facility] ([facility] ) Alanine aminotransferase [Enzymatic activity/volume] in Seru m or Plasma 24 U/L 12-78 [facility] Albumin [Mass/volume] in Serum or Plasma 3.4 g/dL 3.4-5.0 [facility] ([facility]) Proteinase 3 Ab [Units/volume] in Serum 6.2 g/dL 6.4-8.2 [facility] A/G Ratio 1.21 CALC 1.00-1.90 [facility]) Glomerular filtration rate/1.73 sq M pre dicted among non-blacks [Volume Rate/Area] in Serum or Plasma by Creatinine-based formula (MDRD) Laboratory test result [facility] ([facility] Glomerular filtration rate/1.73 sq M pre dicted among blacks [Volume Rate/Area] in Serum or Plasma by Creatinine-based formula (MDRD) Laboratory test result [facility]) <content>CHRONIC KIDNEY DISEASE STAGING PER NKF</content>
<content></content>
<content>STAGE I & II GFR >= 60 NORMAL TO MILDLY DECREASED</content>
<content>STAGE III GFR 30-59 MODERATELY DECREASED</content>
<content>STAGE IV GFR 15-29 SEVERELY DECREASED</content>
<content>STAGE V GFR <15 VERY LITTLE GFR LEFT</content>
<content>ESRD GFR <15 ON ZIPPER SETTER CHAINSTITCH</content>
<content></content> ID Date Data Source [id number] 09/08/2020 03:19:00 PM EST [facility] ([facility]) Name Value Range Interpretation Code Description Data Danuta rce(s) Supporting Document(s) Leukocytes [#/volume] in Blood by Automated count 9.5 x10*3/UL 4.1-10 .9 [facility] ([facility]) Erythrocytes [#/volume] in Blood by Automated count 5.31 x10*6/UL 4.2 0-6.30 [facility] ([facility]) Hemoglobin [Mass/volume] in Blood 15.8 g/dL 12.0-18.0 [facility] ([facility]) Hematocrit [Volume Fraction] of Blood by Automated count 46.9 % 3 7.0-51.0 [facility] ([facility]) MCV 88.2 fL 80.0-97.0 [facility]) MCH 29.8 pg 26.0-32.0 [facility]) MCHC 33.7 g/dL 31.0-38.0 [facility] ([facility]) Erythrocyte distribution width [Ratio] by Automated count 14.1 % 11.6-13.7 [facility] ([facility]) Platelets [#/volume] in Blood by Automated count 256 x10*3/UL 140-440 [facility] ([facility]) MPV 9.0 FL 7.8-11.0 [facility] Lymph % 15.8 % 10.0-58.5 [facility]) Mid % 4.2 % 1.7-9.3 [facility] Neut % 80.0 % 37.0-92.0 [facility] ([facility]) Lymph # 1.5 x10*3/UL 0.6-4.1 [facility] ([facility]) Mid # 0.4 x10*3/UL 0.1-0.6 [facility] ([facility]) Neut # 7.6 x10*3/UL 2.0-7.8 [facility] ([facility]) ID Date Data Source [id number] 06/09/2020 10:07:00 AM EDT [facility] ([facility]) Name Value Range Interpretation Code Description Data Danuta rce(s) Supporting Document(s) Creatinine For GFR 1.24 mg/dL 0.70-1.30 [facility] ([facility]) Blood Urea Nitrogen 12 mg/dL 7-18 [facility] ([facility]) Glucose, Fasting 80 mg/dL 70-100 [facility] ([facility] ) Glomerular Filtration Rate Laboratory test result [facility] ([facility] ) <content>Units are mL/min/1.73 m2</content>
<content></content>
<content>Chronic Kidney Disease Staging per NKF:</content>
<content></content>
<content>Stage I & II GFR >=60 Normal to Mildly Decreased</content>
<content>Stage III GFR 30- 59 Moderately Decreased</content>
<content>Stage IV GFR 15-29 Severely Decreased</content>
<content>Stage V GFR <15 Very Little GFR Left</content>
<content>ESRD GFR <15 on ZIPPER SETTER CHAINSTITCH</content>
<content></content> Sodium Level 142 meq/L 136-145 [facility] ([facility]) Carbon Dioxide Level 30 meq/L 21-32 [facility] ([facility]) Potassium Serum 4.5 meq/L 3.5-5.1 [facility] ([facility]) Chloride Level 107 meq/L 98-107 [facility] ([facility]) Calcium Level 9.0 mg/dL 8.8-10.2 [facility] ([facility]) Anion Gap 5 meq/L 8-16 [facility] ([facility]) ID Date Data Source [id number] 06/03/2020 10:01:07 AM [facility] MR BRAIN WITH AND WITHOUT CONTRAST [id number] FINAL RESULTInterpreted by:Jason Parry MDEXAMINATION: MR BRAIN WITH AND WITHOUT CONTRAST [id number] INDICATION: Hyperprolactinemia.TECHNIQUE: Multiplanar and multisequence MR images [...] co mpleted Patient has never smoked [facility] ([facility]) Smoking 03/20/2021 04:05:01 PM EDT Never smoked tobacco (findi ng) completed Never smoked tobacco (finding) [place] (Malik Guevara MD [facility]) Alcohol intake 12/16/2020 12:00:00 AM EST Current non-d manoj of alcohol (finding) completed Current non-drinker of alcohol (finding) [facility] Alcohol intake 09/18/2020 12:00:00 AM EST Current non-d manoj of alcohol (finding) completed Current non-drinker of alcohol (finding) [facility] Vital Signs ID Date Data Source [id number] Name Value Range Interpretation Code Description Data Source(s) Systolic blood pressure 128 mm[Hg] 128 mm[Hg] [facility] Diastolic blood pressure 89 mm[Hg] 89 mm[Hg] [facility] ([facility]) Heart rate 72 /min 72 /min [facility] ([facility]) Body height 64 [in_i] 64 [in_i] [facility] ([facility]) 5'4" Body weight 194.00 [lb_av] 194.00 [lb_av] [facility] T ([facility]) Body mass index (BMI) [Ratio] 33.3 kg/m2 33.3 k g/m2 [facility] ([facility]) Body weight 184.00 [lb_av] 184.00 [lb_av] [facility] T ([facility]) Systolic blood pressure 136 mm[Hg] 136 mm[Hg[facility] Diastolic blood pressure 86 mm[Hg] 86 mm[Hg] [facility] ([facility]) Heart rate 104 /min 104 /min [facility] ([facility]) Body height 64 [in_i] 64 [in_i] [facility] ([facility]) 5'4" Body mass index (BMI) [Ratio] 31.6 kg/m2 31.6 k g/m2 [facility] ([facility]) Body weight 180.00 [lb_av] 180.00 [lb_av] [facility] T ([facility]) Respiratory rate 18 /min 18 /min [facility] ( [facility]) Systolic blood pressure 136 mm[Hg] 136 mm[Hg] M EDENT ([facility]) Body temperature 96.4 [degF] 96.4 [degF] [facility] ([facility] Body height 64.5 [in_i] 64.5 [in_i] [facility] ([facility]) 5'4.50" Body weight 183.25 [lb_av] 183.25 [lb_av] [facility] T ([facility] ) Body mass index (BMI) [Ratio] 31.0 kg/m2 31.0 k g/m2 [facility] ([facility] ) Oxygen saturation in Arterial blood by Pulse oximetry 98 % 98 % [facility] ([facility] ) Diastolic blood pressure 80 mm[Hg] 80 mm[Hg] [facility] ([facility]) Heart rate 112 /min 112 /min [facility] ([facility]) Diastolic blood pressure 80 mm[Hg] 80 mm[Hg] [facility] ([facility]) Body height 64 [in_i] 64 [in_i] [facility] ([facility]) 5'4" Body weight 185.00 [lb_av] 185.00 [lb_av] [facility] T ([facility]) Body mass index (BMI) [Ratio] 31.8 kg/m2 31.8 k g/m2 [facility] ([facility]) Systolic blood pressure 126 mm[Hg] 126 mm[Hg] M EDENT ([facility]) Heart rate 78 /min 78 /min [facility] ([facility]) Diastolic blood pressure 83 mm[Hg] 83 mm[Hg] [facility] ([facility]) per home readings Heart rate 77 /min 77 /min [facility] ([facility]) Systolic blood pressure 127 mm[Hg] 127 mm[Hg] M EDENT ([facility]) per home readings Body weight 195.00 [lb_av] 195.00 [lb_av] [facility] T ([facility]) Body temperature 98.9 [degF] 98.9 [degF] [facility] ([facility]) Respiratory rate 16 /min 16 /min [facility] ( [facility]) Diastolic blood pressure 80 mm[Hg] 80 mm[Hg] [facility] ([facility]) Systolic blood pressure 150 mm[Hg] 150 mm[Hg] [facility] ([facility]) Diastolic blood pressure 90 mm[Hg] 90 mm[Hg] [facility] ([facility]) Systolic blood pressure 120 mm[Hg] 120 mm[Hg] [facility] ([facility]) Heart rate 80 /min 80 /min [facility] ([facility]) Body height 64 [in_i] 64 [in_i] [facility] ([facility]) 5'4" Body weight 198.00 [lb_av] 198.00 [lb_av] [facility] Oxygen saturation in Arterial blood by Pulse oximetry 97 % 97 % [facility] ([facility]) Body mass index (BMI) [Ratio] 34.0 kg/m2 34.0 k g/m2 [facility] ([facility]) ID Date Data Source [id number] 10/24/2020 08:53:02 AM [facility] Name Value Range Interpretation Code Description Data Source(s) WEIGHT RECORDED 195 lb 195 lb [facility] ID Date Data Source [id number] 09/19/2020 05:43:12 AM [facility] Name Value Range Interpretation Code Description Data Source(s) WEIGHT RECORDED 195 lb 195 lb [facility] Body height Measured 64 in 64 in [facility] Patient Treatment Plan of Care Planned Activity Planned Date Details Description Data Source (s) Ondansetron 4 MG Oral Tablet 09/14/2020 12:55:27 PM Health system Oxycodone Hydrochloride 5 MG Oral Tablet 09/14/2020 12:00:00 AM Health system
[2021-08-02 09:53] LABS: BLOOD UREA NITROGEN 14 MG/DL (7-18); CALCIUM LEVEL 8.9 MG/DL (8.8-10.2); CARBON DIOXIDE LEVEL 27 MEQ/L (21-32); CHLORIDE LEVEL 103 MEQ/L (98-107); CREATININE FOR GFR 1.02 MG/DL (0.70-1.30); GLOMERULAR FILTRATION RATE > 60.0 (>42); GLUCOSE, FASTING 159 MG/DL (70-100); POTASSIUM SERUM 4.8 MEQ/L (3.5-5.1); SODIUM LEVEL 136 MEQ/L (136-145)
[2021-08-02] MEDS ORDERED: HYDROMORPHONE HCL 0.5 MG/ 0.5 ML SYRINGE (J1170 PER 1) IV PRN (11:25)
--- NOTE | 2021-08-02 11:55 | REP ---
INDICATION: acute headache known pituitary tumor resected COMPARISON: 10/27/2020 TECHNIQUE: Axial noncontrast images from the skull base to the thoracic inlet with coronal reformations. This CT examination was performed using the following dose reduction techniques: Automated exposure control, adjustment of mA and/or kv according to the patient's size, and use of iterative reconstruction technique. FINDINGS: Atrophy with periventricular leukomalacia and microvascular ischemic changes are appreciated. The ventricles and sulci are symmetric. Luna-white differentiation is maintained. There is no evidence for acute intracranial hemorrhage, mass/mass effect, pathology or infarction. No extra-axial fluid collection. Calvarium is intact. Sinuses again demonstrate chronic mucoperiosteal changes. IMPRESSION: Atrophy and microvascular ischemic changes. No acute intracranial hemorrhage, infarction, or mass/mass effect. Mild/moderate chronic sinus disease. <Electronically signed by Silvio Landrum > 08/02/21 [id number]
[2021-08-02 12:56] VITALS: BP 160/80
== END 2021-08-02 12:55 | disposition home or self-care (01) ==
LOC: M ED 08:21
DX: R51.9 Headache, unspecified (principal); D35.2 Benign neoplasm of pituitary gland; N18.9 Chronic kidney disease, unspecified; Z79.82 Long term (current) use of aspirin; Z79.890 Hormone replacement therapy; Z79.899 Other long term (current) drug therapy; Z88.0 Allergy status to penicillin
CPT/HCPCS: 70450; 80048; 85025; 96374; 96375; 99284; J1170; J1200; J1885; J2765

== ENCOUNTER 2021-08-04 12:53 | Emergency (ER) | payer OTHER ==
[~2021-08-04] VITALS: Ht 162.6 cm; Wt 86.4 kg
--- OUTSIDE RECORDS SUMMARY | 2021-08-04 13:05 | CCD ---
Author Author [facility] Organization [facility] Address Unknown Phone Unavailable Care Team Providers Care [facility] Specialist Name Role Phone Josep Rendon MD Unavailable Unavailable Josep Rendon MD Unavailable Unavailable Josep Rendon MD Unavailable Unavailable Josep Rendon MD Unavailable Unavailable Josep Rendon MD Unavailable Unavailable Josep Rendon MD Unavailable Unavailable Josep Renodn MD Unavailable Unavailable Josep Rendon MD Unavailable [...] Rendon MD Unavailable Unavailable White, F Lino MD [...] Unavailable White, F Lino MD Unavailable Unavailable Justice, F Lino MD Unavailable Unavailable Светлана RAND MD Unavailable Unavailable Светлана RAND MD Unavailable Unavailable Светлана RAND MD Unavailable Unavailable Светлана RAND MD Unavailable Unavailable Светлана RAND MD Unavailable Unavailable Светлана RAND MD Unavailable Unavailable Светлана RAND MD Unavailable Unavailable Светлана RAND MD Unavailable Unavailable KEYONA, Светлана NAVARRO MD [...] KEYONA, Светлана NAVARRO MD Unavailable Unavailable KEYONA, Севтлана NAVARRO MD Unavailable Unavailable KEYONA, Светлана NAVARRO [...] KEYONA, Светлана NAVARRO MD Unavailable Unavailable Zoe, A Manju Unavailable Unavailable Zoe, A Manju Unavailable Unavailable Josep Kramer MD Unavailable [...] Fish, Malou Orozco MD Unavailable Unavailable Fish, Maolu Orozco MD Unavailable Unavailable Fish, Malou Orozco [...] Pam DOWLING Unavailable Unavailable Fish, B Pam DOWLIGN Unavailable Unavailable Fish, B Pam DOWLING Unavailable Unavailable Fish, B Pam DOWLING Unavailable Unavailable Fish, B Pam DOWLING Unavailable Unavailable Fish, B Pam DOWLING Unavailable Unavailable Fish, B Pam DOWLING Unavailable Unavailable Fish, B Pam DOWLING Unavailable Unavailable Fish, B Pam DOWLING Unavailable Unavailable Fish, B Pam DOWLING Unavailable Unavailable Fish, B Pam DOWLING Unavailable Unavailable Dumont, A Phyl MANAGER BUSINESS BANKING-BC Unavailable Unavailable Dumont, A Phyl MANAGER BUSINESS BANKING-BC Unavailable Unavailable Dumont, A Phyl MANAGER BUSINESS BANKING-BC Unavailable Unavailable Dumont, A Phyl MANAGER BUSINESS BANKING-BC Unavailable Unavailable Dumont, A Phyl MANAGER BUSINESS BANKING-BC Unavailable Unavailable Dumont, A Phyl MANAGER BUSINESS BANKING-BC Unavailable Unavailable Dumont, A Phyl MANAGER BUSINESS BANKING-BC Unavailable Unavailable Dumont, A Phyl MANAGER BUSINESS BANKING-BC Unavailable Unavailable Dumont, A Phyl MANAGER BUSINESS BANKING-BC Unavailable Unavailable Dumont, A Phyl MANAGER BUSINESS BANKING-BC Unavailable Unavailable Dumont, A Phyl MANAGER BUSINESS BANKING-BC Unavailable Unavailable Dumont, A Phyl MANAGER BUSINESS BANKING-BC Unavailable Unavailable Dumont, A Phyl MANAGER BUSINESS BANKING-BC Unavailable Unavailable Dumont, A Phyl MANAGER BUSINESS BANKING-BC Unavailable Unavailable Dumont, A Phyl MANAGER BUSINESS BANKING-BC Unavailable Unavailable Dumont, A Phyl MANAGER BUSINESS BANKING-BC Unavailable Unavailable Dumont, A Phyl MANAGER BUSINESS BANKING-BC Unavailable Unavailable Dumont, A Phyl MANAGER BUSINESS BANKING-BC Unavailable Unavailable Dumont, A Phyl MANAGER BUSINESS BANKING-BC Unavailable Unavailable Dumont, A Phyl MANAGER BUSINESS BANKING-BC Unavailable Unavailable Dumont, A Phyl MANAGER BUSINESS BANKING-BC Unavailable Unavailable Dumont, A Phyl MANAGER BUSINESS BANKING-BC Unavailable Unavailable Dumont, A Phyl MANAGER BUSINESS BANKING-BC Unavailable Unavailable Dumont, A Phyl MANAGER BUSINESS BANKING-BC Unavailable Unavailable Dumont, A Phyl MANAGER BUSINESS BANKING-BC Unavailable Unavailable Dumont, A Phyl MANAGER BUSINESS BANKING-BC Unavailable Unavailable Dumont, A Phyl MANAGER BUSINESS BANKING-BC Unavailable Unavailable Dumont, A Phyl MANAGER BUSINESS BANKING-BC Unavailable Unavailable Dumont, A Phyl MANAGER BUSINESS BANKING-BC Unavailable Unavailable Dumont, A Phyl MANAGER BUSINESS BANKING-BC Unavailable Unavailable Dumont, A Phyl MANAGER BUSINESS BANKING-BC Unavailable Unavailable Dumont, A Phyl MANAGER BUSINESS BANKING-BC Unavailable Unavailable [place], A Juanjo DOWLING Unavailable Unavailable Yudelka, Светлана Geiger MD Unavailable Unavailable Yudelka, Светлана Geiger MD Unavailable Unavailable Yudelka, Светлана Geiger MD Unavailable Unavailable [place], Светлана Geiger MD Unavailable Unavailable [place], Светлана Geiger MD Unavailable Unavailable Yudelka, Светлана Geiger MD Unavailable Unavailable [place], Светлана Geiger MD Unavailable Unavailable Yudelka, Светлана Geiger MD Unavailable Unavailable [place], Светлана Geiger MD Unavailable Unavailable Yudelka, Светлана Geiger MD Unavailable Unavailable [place], Светлана Geiger MD Unavailable Unavailable [place], Светлана Geiger MD Unavailable Unavailable [place], Светлана Geiger MD Unavailable Unavailable Yudelka, Светлана Geiger MD Unavailable Unavailable [place], Светлана Geiger MD Unavailable Unavailable Yudelka, Светлана Geiger MD Unavailable Unavailable Yudelka, Светлана Geiger MD Unavailable Unavailable Yudelka, Светлана Geiger MD Unavailable Unavailable Yudelka, Светлана Geiger MD Unavailable Unavailable [place], Светлана Geiger MD Unavailable Unavailable [place], Светлана Geiger MD Unavailable Unavailable [place], Светлана Geiger MD Unavailable Unavailable Yudelka, Светлана Geiger MD Unavailable Unavailable Yudelka, Светлана Geiger MD Unavailable Unavailable [place], Светлана Geiger MD Unavailable Unavailable [place], Светлана Geiger MD Unavailable Unavailable [place], Светлана Geiger MD Unavailable Unavailable Yudelka, Светлана Geiger MD Unavailable Unavailable [place], Светлана Geiger MD Unavailable Unavailable [place], Светлана Geiger MD Unavailable Unavailable [place], Светлана Geiger MD Unavailable Unavailable [place], Светлана Geiger MD Unavailable Unavailable Yudelka, Светлана Geiger MD Unavailable Unavailable [place], Светлана Geiger MD Unavailable Unavailable [place], Светлана Geiger MD Unavailable Unavailable [place], Светлана Geiger MD Unavailable Unavailable Rayshawn DUNN Unavailable Unavailable Rayshawn CAGE MD Unavailable Unavailable Rayshawn CAGE MD Unavailable Unavailable Rayshawn CAGE MD Unavailable Unavailable Rayshawn CAGE MD Unavailable Unavailable Rayshawn CAGE MD Unavailable Unavailable NILES S CUCA DOWLING Unavailable Unavailable Re-disclosure Warning The records that [...] is protected by Article 27-F of the [place] Public Health law. If you continue you may have access to information: Regarding HIV / AIDS; Provided by facilities licensed or operated by the [place] Office of Mental Health; or Provided by the [place] Office for People With Developmental Disabilities. If such information is present, then the following [place] mandated warning applies: This information has been [...] law may result in a fine or custodial sentence or both. A general authorization for the release of medical or other information is NOT sufficient authorization for further disc losure. Allergies and Adverse Reactions Type Description Substance Reaction Status Data Source(s ) Propensity to adverse reactions AMOXICILLIN Amoxicillin Rash [facility] Family History Family Member Name Family Member Gender Family Member Status Date o f Status Description Data Source(s) Unknown Male Problem [facility] ([facility]) () Unknown Male Problem [facility] ([facility] ) () Encounters Encounter Providers Location Date Indications Data Source(s ) Outpatient Attender: Lino Zavala 05/04 02:00:00 PM EDT [facility] ([facility] ) Outpatient Attender: Rai Dumont [facility] Main Office 0 04/14/2021 02:00:00 PM EDT [facility] ([facility]) Outpatient Attender: Pam Veronica MD Physical Therapy 04/09 02:15:00 PM EDT [facility] ([facility]) Outpatient Attender: Lino Zavala 01/26 08:00:00 AM EDT [facility] ([facility] ) Outpatient Referrer: Manju Enriquez 12/16/2020 12:00: 00 AM EST Benign neoplasm of pituitary gland [facility] Benign neoplasm of pituitary gland Outpatient Attender: Lino Zavala 11/04 12:00:00 PM EST [facility] ([facility] ) Outpatient Attender: Pam Veronica MD Physical Therapy 09/30 02:00:00 PM EST [facility] ([facility]) Outpatient Attender: Juanjo Jah MD 09/25/2020 12:00:0 0 AM [facility] Outpatient Referrer: HAMILTON DUNN 09/22/2020 12:00:00 AM E [facility] Outpatient 09/19/2020 12:00:00 AM [facility] Outpatient Attender: Juanjo Jha MDReferrer: SA SABINO RAND MD 07A-RONCACTR 09/18/2020 12:00:00 AM EST - 09/18/2020 02:33:14 PM EST f/u [facility] f/u Outpatient 09/16/2020 12:00:00 AM [facility] Outpatient 09/15/2020 12:00:00 AM [facility] Emergency Attender: CUCA CAGE MDAttender: Sreekanth gavin MD 07A-ADULTERM 09/14/2020 12:00:00 AM EST - 09/14/2020 11:02:00 PM EST Other specified disorders of brain [facility] Other specified disorders of brain Patient discharged. Outpatient Attender: Lino Zavala 09/08 01:30:00 PM EST [facility] ([facility] ) Outpatient 06/17/2020 12:00:00 AM [facility] Medications Medication Brand Name Start Date Product [...] TABLET BY MOUTH EVERY DAY SOLD: 07/16/2021 [facility] 100 mg 07/14/2021 12:00:00 AM EDT capsule 180 TAKE 3 CAPSULES BY MOUTH TWO TIMES A DAY MAXIMUM DAILY DOSE = 6 TAKE 3 CAPSULES BY MOUTH TWO TIMES A DAY MAXIMUM DAILY DOSE = 6 SOLD: 07/16/2021 [facility] 1 mg 07/11/2021 12:00:00 AM EDT [...] 05/04/2021 12:00:00 AM EDT ORAL completed [facility] ([facility]) 100 mcg 04/16/2021 12:00:00 AM EDT [...] DS 04/09/2021 12:00:00 AM EDT active [facility] ([facility]) 1 mg 04/03/2021 12:00:00 [...] 03/22/2021 12:00:00 AM EDT ORAL active [facility] ([facility]) 20 mEq 03/21/2021 12:00:00 [...] 03/20/2021 12:00:00 AM EDT ORAL active [facility] ([facility]) 20 mg 03/19/2021 12:00:00 AM EDT [...] DAILY DOSE = 4 PUMPS SOLD: 03/03/2021 [facility] 4 gram 03/02/2021 12:00:00 AM EDT [...] MOUTH TWICE A DAY SOLD: 03/02/2021 [facility] 1 mg 02/28/2021 12:00:00 AM EDT tablet [...] TABLET BY MOUTH EVERY DAY SOLD: 06/30/2021 [facility] 100 mg 02/24/2021 12:00:00 AM [...] TABLET BY MOUTH EVERY DAY SOLD: 02/24/2021 [facility] 100 mg 02/19/2021 12:00:00 AM EDT [...] 12:00:0 0 AM EDT ORAL active [facility] ([facility]) 1 mg 01/20/2021 12:00:00 AM [...] 12:00:0 0 AM EDT ORAL completed [facility] ([facility]) 4 mg 01/05/2021 12:00:00 AM [...] Drugs gadobutrol (GADAVIST) contrast injection 4 mL [id number] 04:15:00 PM EST 4 mL Intravenous completed 4 mL, Tavo pugh, 1 TIME IMAGING, [facility] 12/16/20 at 1615, For 1 dose, Imaging Protocol
Do not mix or administer in the same IV line with other medications.
[facility] Medication administered onsite 25 mg 12/16/2020 [...] TABLET BY MOUTH EVERY DAY SOLD: 12/16/2020 [facility] 24 HR Bupropion Hydrochloride 150 MG [...] BY MOUTH EVERY MORNING SOLD: 12/06/2020 [facility] 20.25 mg/1.25 gram (1.62 %) 12/05/2020 12:00:00 [...] MOUTH TWICE A DAY SOLD: 12/01/2020 [facility] 10 mg 11/26/2020 12:00:00 AM EST tablet 180 TAKE 4 TABLETS BY MOUTH EVERY MORNING AND 2 TABLETS BY MOUTH EVERY AFTERNOON MAXIMUM DAILY DOSE = 6 TAKE 4 TABLETS BY MOUTH EVERY MORNING AND 2 TABLETS BY MOUTH EVERY AFTERNOON MAXIMUM DAILY DOSE = 6 SOLD: 12/31/2020 [facility] 10 mg 11/26/2020 12:00:00 AM EST tablet 180 TAKE 4 TABLETS BY MOUTH EVERY MORNING AND 2 TABLETS BY MOUTH EVERY AFTERNOON MAXIMUM DAILY DOSE = 6 TAKE 4 TABLETS BY MOUTH EVERY MORNING AND 2 TABLETS BY MOUTH EVERY AFTERNOON MAXIMUM DAILY DOSE = 6 SOLD: 12/01/2020 [facility] Hydrocortisone 10 MG Oral Tablet Hydrocortisone 11/25/2020 12:00:00 A M EST active [facility] ([facility] 5 mg 11/21/2020 12:00:00 AM EST tablet 90 TAKE ONE TABLET BY MOUTH EVERY DAY TAKE ONE TABLET BY MOUTH EVERY DAY SOLD: 11/24/2020 [facility] 5 mg 11/21/2020 12:00:00 AM EST tablet 90 TAKE ONE TABLET BY MOUTH EVERY DAY TAKE ONE TABLET BY MOUTH EVERY DAY SOLD: 02/24/2021 [facility] Magnesium Oxide 500 MG Oral Tablet Magnesium Oxide 11/04/2020 12:00 :00 AM EST active [facility] ([facility]) 4 mg 10/29/2020 12:00:00 AM EST tablet 30 TAKE ONE TABLET BY MOUTH EVERY DAY TAKE ONE TABLET BY MOUTH EVERY DAY SOLD: 10/30/2020 [facility] 1 mg 10/28/2020 12:00:00 AM EST tablet 60 TAKE ONE TABLET BY MOUTH TWICE A DAY, MAXIMUM DAILY DOSE = 2 TAKE ONE TABLET BY MOUTH TWICE A DAY, LEVON WHITING DAILY DOSE = 2 SOLD: 10/28/2020 [facility] Dexamethasone 4 MG Oral Tablet [Decadron] Decadron 10/28/2020 1 2:00:00 AM EST ORAL active [facility] ([facility]) 5 mg 10/28/2020 12:00:00 AM EST tablet 30 TAKE ONE TABLET BY MOUTH EVERY DAY TAKE ONE TABLET BY MOUTH EVERY DAY SOLD: 10/28/2020 [facility] 0.75 mg 10/27/2020 12:00:00 AM EST tablet 60 TAKE TWO TABLETS BY MOUTH DAILY FOR EXTREME HEADACHES, REPLACES CORTEF (HYDROCORTISONE) FOR THE DAY TAKE TWO TABLETS BY MOUTH DAILY FOR EXTREME HEADACHES, REPLACES CORTEF (HYDROCORTISONE) FOR THE DAY SOLD: 10/28/2020 [facility] 100 mg 10/25/2020 12:00:00 AM [...] DAILY DOSE = EIGHT TABLETS SOLD: 09/18/2020 [facility] magnesium sulfate in dextrose 5 % infusion (premix) 1 g 0409 -6727-23 09/14/2020 08:00:00 PM EST 1 g Intravenous completed 1 g, Intravenous, Administer over 60 Minutes, Once, 09/14/20 at 1999, For 1 dose [facility] Medication administered onsite sodium chloride 0.9 % bolus 1,000 mL 9824-1320-84 09/14/2020 08:00: 00 PM EST 1000 mL Intravenous completed 1,000 mL , Intravenous, Once, 09/14/20 at 1999, For 1 dose [facility] Medication administered onsite diphenhydrAMINE (BENADRYL) injection 25 mg 03059-089-80 09/14/2020 08:00:00 PM EST 25 mg Intravenous completed 25 mg, Intravenous, Once, 09/14/20 at 1999, For 1 dose [facility] Medication administered onsite 2 ML Metoclopramide 5 MG/ML Prefilled Sy ringe metoclopramide (REGLAN) injection 10 mg metoclopramide (REGLAN) injection 10 mg 09/14/2020 08:00:[address] 10 mg Intravenous completed 10 mg, I ntravenous, Once, 09/14/20 at 2000, For 1 dose [facility] Medication administered onsite 1 ML Ketorolac Tromethamine 30 MG/ML [place] ketorolac (TORADOL) 30 MG/ML injection 15 mg ketorolac (TORADOL) 30 MG/ML injection 15 mg 0 07:45:00 PM EST 15 mg Intravenous completed 15 mg, Intravenous, Once, [place] 09/14/20 at 2000, For 1 dose [facility] Medication administered onsite gadobutrol (GADAVIST) contrast injection 8.5 mL [id number] 09/14/2020 05:15:00 PM EST 0.1 mL/kg Intravenous completed 8.5 mL (rounded from 8.85 mL = 0.1 mL/kg 88.5 kg), Intravenous, 1 TIME IMAGING, [place] 09/14/20 at 1715, For 1 dose
Do not mix or administer in the same IV line with other medications.
[facility] Medication administered onsite morphine sulfate (PF) injection 6 mg 3428-8334-63 09/14/2020 03:30: 00 PM EST 6 mg Intravenous completed 6 mg, In travenous, Once, [place] 09/14/20 at 1530, For 1 dose [facility] Medication administered onsite NaCl infusion 0.9 % 5047-8371-23 09/14/2020 03:15:00 PM EST Intravenous active at 100 mL/hr, Intrav enous, Continuous, Starting 09/14/20 at 1515, For 30 days [facility] Medication administered onsite ondansetron (ZOFRAN) injection 4 mg 92742-006-97 09/14/2020 01:15:0 0 PM EST 4 mg Given by IV completed 4 mg, Gi sebastian by IV, Once, [place] 09/14/20 at 1315, For 1 dose [facility] Medication administered onsite morphine sulfate (PF) injection 4 mg 0383-8253-89 09/14/2020 01:00: 00 PM EST 4 mg Intravenous completed 4 mg, In travenous, Once, [place] 09/14/20 at 1300, For 1 dose [facility] Medication administered onsite Ondansetron 4 MG Oral Tablet ondansetron (ZOFRAN) tabl et 4 mg ondansetron (ZOFRAN) tablet 4 mg 09/14/2020 12:55:27 PM EST 4 mg Oral active 4 mg, Oral, Every 8 hours PRN, Nausea, Vomiting, Starting 09/14/20 at 1255, For 30 days [facility] Medication administered onsite Oxycodone Hydrochloride 5 MG Oral Tablet oxyCODONE HCl 5 MG Oral Tablet (ROXICODONE) oxyCODONE HCl 5 MG Oral Tablet (ROXICODONE) 09/14/2020 12:00:00 AM EST 10 mg Oral completed Take 2 tablets by mouth every 6 (six) hours as needed for Pain for up to 3 days, Max Daily Dose: 40 mg [facility] 10 mg 09/09/2020 12:00:00 AM EST [...] TABLET BY MOUTH EVERY DAY SOLD: 09/22/2020 [facility] 100 mg 08/21/2020 12:00:00 AM EST tablet extended release 24 hr 30 TAKE ONE TABLET BY MOUTH EVERY DAY TAKE ONE TABLET BY MOUTH EVERY DAY SOLD: 08/23/2020 [facility] 100 mg 08/21/2020 12:00:00 AM EST [...] 12:00:00 AM EDT ORAL active [facility] 100 mcg 06/11/2020 12:00:00 AM EDT tablet [...] MOUTH EVERY MORNING SOLD: 06/09/2020 [facility] 24 HR Bupropion Hydrochloride 150 MG Extended Release Oral T ablet BUPROPION HCL 05/08/2020 12:00:00 AM EDT tablet extended release 24 hr 30 TAKE ONE TABLET BY MOUTH EVERY DAY TAKE ONE TABLET BY MOUTH EVERY DAY SOLD: 11/04/2020 [facility] 24 HR Bupropion Hydrochloride 150 [...] BY MOUTH EVERY DAY SOLD: 08/07/2020 [facility] 24 HR Bupropion Hydrochloride 150 [...] TABLET BY MOUTH EVERY DAY SOLD: 08/03/2020 [facility] Insurance Providers Payer name Policy type / Coverage type Policy ID Covered democrat ID Covered democrat's relationship to pearson Policy Pearson Plan Information MVP (pr) Commercial [id number] Self MVP (pr) Commercial [id number] Self [id number] MVP [id number] Self [id number] [employer] Healthcare Commercial [id number] Self [id number] MV Healthcare Commercial [id number] Self [facility] [id number] [place] (pr) Medigap Part B [id number] Family Dependent [id number] [employer] (pr) Commercial [id number] Family Dependent [place] Ppo Medigap Part B [id number] Family Dependent [place] (pr) Medigap Part B [id number] Family Dependent [id number] [place] (pr) Commercial [id number] Family Dependent [id number] [place] Ppo Medigap Part B [id number] Family Dependent [id number] [place] Ppo Medigap Part B [id number] .[id number] Family Dependent [id number] [employer] (pr) Commercial [id number] Family Dependent [id number] [place] Ppo Medigap Part B [id number] .[id number] Family Dependent [id number] [place] (pr) Medigap Part B [id number] Family Dependent [id number] Pom[employer]/Umr (Old) Medigap Part B [id number] Family Dependent [id number] [place] (pr) Medigap Part B [id number] Family Dependent [id number] [place] (pr) Medigap Part B [id number] Family Dependent [id number] Umr [place] Ppo Medigap Part B [id number] Family Dependent [id number] [place] (pr) Commercial [id number] Family Dependent [id number] POMCO U [id number] Spouse [id number] POMCO [id number] WI2 [id number] UMR [facility] [id number] WI2 [id number] UMR U [id number] Spouse [id number] MEDICARE A [id number] Self [id number] UMR U [id number] Spouse [id number] UMR U [id number] Spouse [id number] Umr (pr) Commercial [id number] Self [id number] UMR U [id number] Spouse [id number] Umr (pr) Commercial [id number] Self [id number] [facility] Commercial [id number] Family Dependent [id number] Umr (pr) Commercial [id number] Self [id number] Umr (pr) Commercial [id number] Self [id number] UMR [facility] [id number] [facility] [id number] Umr (pr) Commercial [id number] Self [id number] MEDICARE A Self O [id number] S [id number] 300 MEDICARE [id number] SP [id number] MEDICARE [id number] SP [id number] A UMR O [id number] S [id number] BS [place] Medigap Part B [id number] Self [id number] BS [place] Medigap Part B [id number] Self [id number] BS [place] Medigap Part B [id number] Self [id number] BS [place] Medigap Part B [id number] Self S [id number] BS [place] Medigap Part B [id number] Self S [id number] BS [place] Medigap Part B [id number] Self S [id number] [facility] O [id number] P [id number] MEDICARE [id number] SP [id number] A BS [place] Medigap Part B [id number] Self S [id number] [facility] Maintenance Organization ([facility]) [id number] Self [id number] [place] Medigap Part B [id number] Self S [id number] [place] Medigap Part B [id number] Self OTHER WORKERS COMPENSATION [id number] SP [id number] [facility] P [id number] S [id number] [facility] O [id number] S [id number] Problems, Conditions, and Diagnoses Code Display Name Description Problem Type Effective Dates Data Source(s) f/u f/u Diagnosis 09/18/2020 07:36:01 AM [facility] G93.89 Other specified disorders of brain Other specifi ed disorders of brain Diagnosis 09/14/2020 11:54:00 AM [facility] Headache;cancer patient Headache;cancer patient Diagno sis 09/14/2020 11:54:00 AM EST [facility] Surgeries/Procedures Procedure Description Date Indications Data Source(s) OFFICE OUTPATIENT VISIT 25 MINUTES 05/04/2021 12:00:00 AM EDT [facility] ([facility]) OFFICE OUTPATIENT VISIT 25 MINUTES 04/14/2021 12:00:00 AM EDT [facility] ([facility]) OFFICE OUTPATIENT VISIT 25 MINUTES 04/09/2021 12:00:00 AM EDT [facility] ([facility]) OFFICE OUTPATIENT VISIT 25 MINUTES 01/26/2021 12:00:00 AM EDT [facility] ([facility]) MRI ORBIT FACE & NCK W/O &W/CONTRAST MATRL <td>MR ORBI T WITH AND WITHOUT CONTRAST [id number]</td><td>Routine</td><td>09/14/2020 6:30 PM EST</td><td></td><td> </td> 09/14/2020 06:30:00 PM [facility] MRI BRAIN BRAIN STEM W/O &W/CONTRAST MATERIAL <td>MR B RAIN WITH AND WITHOUT CONTRAST [id number]</td><td>Routine</td><td>09/14/2020 6:25 PM EST</td><td></td><td> </td> 09/14/2020 06:25:[address] [facility] [address] HEAD/BRAIN W/O CONTRAST MATERIAL <td>CT HEAD WITHOU T CONTRAST [id number]</td><td>STAT</td><td>09/14/2020 1:45 PM EST</td><td></td><td> </td> 09/14/2020 01:45:21 PM [facility] SEDIMENTATION RATE RBC AUTOMATED <td>SEDIMENTATION RAT E, AUTOMATED</td><td>Routine</td><td>09/14/2020 12:55 PM EST</td><td></td><td> </td> 09/14/2020 12:55:00 PM [facility] BLOOD COUNT COMPLETE AUTO&AUTO DIFRNTL WBC COUNT <td>C BC AND DIFFERENTIAL</td><td>Routine</td><td>09/14/2020 12:55 PM EST</td><td></td><td> </td> 09/14/2020 12:55:00 PM [facility] C-REACTIVE PROTEIN <td>INFLAMMATORY C-REACTIVE PROTEIN (CRP)</td><td>Routine</td><td>09/14/2020 12:55 PM EST</td><td></td><td> </td> 09/14/2020 12:55:00 PM [facility] BASIC METABOLIC PANEL CALCIUM TOTAL <td>BASIC METABOLI C PANEL</td><td>STAT</td><td>09/14/2020 12:55 PM EST</td><td></td><td> </td> 09/14/2020 12:55:00 PM [facility] URNLS DIP STICK/TABLET REAGENT AUTO MICROSCOPY <td>URI NALYSIS WITH MICROSCOPIC</td><td>STAT</td><td>09/14/2020 12:34 PM EST</td><td></td><td> </td> 09/14/2020 12:34:00 PM [facility] Diabetic Retinal Eye Exam 09/14/2020 12:00:00 AM EST [facility] ([facility]) Results ID Date Data Source [id number] 06/29/2021 03:42:00 PM EDT [facility] ([facility]) Name Value Range Interpretation Code Description Data Danuta rce(s) Supporting Document(s) Glucose, Fasting 162 mg/dL 70-100 [facility] ([facility]) Glomerular Filtration Rate Laboratory test result [facility] ([facility]) <content>Units are mL/min/1.73 m2</content>
<content></content>
<content>Chronic Kidney Disease Staging per NKF:</content>
<content></content>
<content>Stage I & II GFR >=60 Normal to Mildly Decreased</content>
<content>Stage III GFR 30- 59 Moderately Decreased</content>
<content>Stage IV GFR 15-29 Severely Decreased</content>
<content>Stage V GFR <15 Very Little GFR Left</content>
<content>ESRD GFR <15 on MODEL MAKER PLASTIC</content>
<content></content> Blood Urea Nitrogen 10 mg/dL 7-18 [facility]) Creatinine For GFR 1.06 mg/dL 0.70-1.30 [facility] ([facility]) Sodium Level 142 meq/L 136-145 [facility] Potassium Serum 4.2 meq/L 3.5-5.1 [facility] ([facility]) Chloride Level 108 meq/L 98-107 [facility] ([facility] Carbon Dioxide Level 28 meq/L 21-32 [facility] ([facility]) Anion Gap 6 meq/L 8-16 [facility] Calcium Level 8.6 mg/dL 8.8-10.2 [facility] ([facility]) ID Date Data Source [id number] 06/16/2021 03:20:00 PM EDT [facility] ([facility]) Name Value Range Interpretation Code Description Data Danuta rce(s) Supporting Document(s) White Blood Count 10.8 10 4.0-10.0 [facility] ([facility]) Hemoglobin 15.9 g/dL 13.5-17.5 [facility] ([facility]) Red Blood Count 5.44 10 4.30-6.10 [facility] ([facility]) Mean Corpuscular Volume 92.5 fl 80.0-96.0 [facility] ([facility]) Hematocrit 50.3 % 42.0-52.0 [facility] ([facility]) Mean Corpuscular Hemoglobin 29.2 pg 27.0-33.0 [facility] ([facility]) Platelet Count, Automated 280 10 150-450 [facility] NT ([facility]) Red Cell Distribution Width 15.7 % 11.5-14.5 [facility] ([facility]) Mean Corpuscular HGB Conc 31.6 g/dL 32.0-36.5 [facility] NT ([facility]) Lymph % 17.5 % 24.0-44.0 [facility] ([place] [facility]) [place] % 5.7 % 2.0-8.0 [facility] [facility] Neutrophils % 70.6 % 36.0-66.0 [facility] ([facility]) Immature Granulocyte % 4.8 % 0-3.0 [facility] ([facility]) Eos % 0.1 % 0.0-3.0 [facility] ([place] [facility]) Baso % 1.3 % 0.0-1.0 [facility] [facility] Lymph # 1.9 10 1.5-5.0 [facility] [facility] Neutrophils # 7.6 10 1.5-8.5 [facility] ([facility]) Nucleated Red Blood Cell % 0.0 % 0-0 [facility] ([facility] [facility]) [place] # 0.6 10 0.0-0.8 [facility] [facility] Baso # 0.1 10 0.0-0.2 [facility] [facility] Eos # 0.0 10 0.0-0.5 [facility] [facility] ID Date Data Source [id number] 06/16/2021 03:20:00 PM EDT [facility] ([facility]) Name Value Range Interpretation Code Description Data Danuta rce(s) Supporting Document(s) Magnesium [Moles/volume] in Serum or Plasma 2.3 mg/dL 1.8-2.4 [facility] ([facility]) Thyroxine (T4) free [Mass/volume] in Serum or Plasma 0.84 ng/dL 0.76- 1.46 [facility] ([facility]) ID Date Data Source [id number] 06/16/2021 03:20:00 PM EDT [facility] ([facility]) Name Value Range Interpretation Code Description Data Danuta rce(s) Supporting Document(s) Blood Urea Nitrogen 13 mg/dL 7-18 [facility] ([facility]) Glucose, Fasting 116 mg/dL 70-100 [facility] ([facility]) Creatinine For GFR 1.11 mg/dL 0.70-1.30 [facility] ([facility]) Glomerular Filtration Rate Laboratory test result [facility] ([facility]) <content>Units are mL/min/1.73 m2</content>
<content></content>
<content>Chronic Kidney Disease Staging per NKF:</content>
<content></content>
<content>Stage I & II GFR >=60 Normal to Mildly Decreased</content>
<content>Stage III GFR 30- 59 Moderately Decreased</content>
<content>Stage IV GFR 15-29 Severely Decreased</content>
<content>Stage V GFR <15 Very Little GFR Left</content>
<content>ESRD GFR <15 on MODEL MAKER PLASTIC</content>
<content></content> Sodium Level 138 meq/L 136-145 [facility] ([facility]) Chloride Level 105 meq/L 98-107 [facility] ([facility]) Potassium Serum 5.0 meq/L 3.5-5.1 [facility] ([facility]) Anion Gap 6 meq/L 8-16 [facility] ([facility]) Calcium Level 9.5 mg/dL 8.8-10.2 [facility] ([facility]) Carbon Dioxide Level 27 meq/L 21-32 [facility] ([facility]) Ast/Sgot 26 U/L 7-37 [facility] ([place] [facility]) Alt/SGPT 59 U/L 12-78 [facility] ([place] [facility]) Alkaline Phosphatase 107 U/L 45-117 [facility] ([facility]) Bilirubin,Total 0.4 mg/dL 0.2-1.0 [facility] ([facility]) Total Protein 6.6 GM/DL 6.4-8.2 [facility] ([facility]) Albumin 3.3 GM/DL 3.2-5.2 [facility] ([place] [facility]) Albumin/Globulin Ratio 1.0 [facility] ([facility]) ID Date Data Source [id number] 06/02/2021 11:05:00 AM EDT [facility] ([facility]) Name Value Range Interpretation Code Description Data Danuta rce(s) Supporting Document(s) Magnesium [Moles/volume] in Serum or Plasma 2.0 mg/dL 1.8-2.4 [facility] ([facility]) Thyroxine (T4) free [Mass/volume] in Serum or Plasma 0.79 ng/dL 0.76- 1.46 [facility] ([facility]) ID Date Data Source [id number] 06/02/2021 11:05:00 AM EDT [facility] ([facility]) Name Value Range Interpretation Code Description Data Danuta rce(s) Supporting Document(s) Blood Urea Nitrogen 19 mg/dL 7-18 [facility] ([facility]) Glucose, Fasting 149 mg/dL 70-100 [facility] ([facility]) Creatinine For GFR 1.07 mg/dL 0.70-1.30 [facility] ([facility]) Glomerular Filtration Rate Laboratory test result [facility] ([facility]) <content>Units are mL/min/1.73 m2</content>
<content></content>
<content>Chronic Kidney Disease Staging per NKF:</content>
<content></content>
<content>Stage I & II GFR >=60 Normal to Mildly Decreased</content>
<content>Stage III GFR 30- 59 Moderately Decreased</content>
<content>Stage IV GFR 15-29 Severely Decreased</content>
<content>Stage V GFR <15 Very Little GFR Left</content>
<content>ESRD GFR <15 on MODEL MAKER PLASTIC</content>
<content></content> Sodium Level 139 meq/L 136-145 [facility] ([facility]) Potassium Serum 4.4 meq/L 3.5-5.1 [facility] ([facility]) Chloride Level 106 meq/L 98-107 [facility] ([facility]) Carbon Dioxide Level 27 meq/L 21-32 [facility] ([facility]) Ast/Sgot 24 U/L 7-37 [facility] ([place] [facility]) Anion Gap 6 meq/L 8-16 [facility] ([place] [facility]) Calcium Level 8.3 mg/dL 8.8-10.2 [facility] ([facility]) Alkaline Phosphatase 79 U/L 45-117 [facility] ([facility]) Alt/SGPT 55 U/L 12-78 [facility] ([place] [facility]) Bilirubin,Total 0.4 mg/dL 0.2-1.0 [facility] ([facility]) Total Protein 6.0 GM/DL 6.4-8.2 [facility] ([facility]) Albumin/Globulin Ratio 1.1 [facility] [place] [facility] Albumin 3.2 GM/DL 3.2-5.2 [facility]) ID Date Data Source [id number] 06/02/2021 11:05:00 AM EDT [facility] ([facility]) Name Value Range Interpretation Code Description Data Danuta rce(s) Supporting Document(s) White Blood Count 11.4 10 4.0-10.0 [facility] ([facility]) Hemoglobin 15.3 g/dL 13.5-17.5 [facility] Red Blood Count 5.13 10 4.30-6.10 [facility]) Hematocrit 47.7 % 42.0-52.0 [facility] ([facility]) Mean Corpuscular HGB Conc 32.1 g/dL 32.0-36.5 [facility] NT ([facility]) Mean Corpuscular Hemoglobin 29.8 pg 27.0-33.0 [facility] ([place] [facility]) Mean Corpuscular Volume 93.0 fl 80.0-96.0 [facility] ([place] [facility]) Platelet Count, Automated 234 10 150-450 [facility] NT ([place] [facility]) Red Cell Distribution Width 15.9 % 11.5-14.5 [facility] ([place] [facility]) Neutrophils % 71.9 % 36.0-66.0 [facility] ([facility]) Lymph % 16.8 % 24.0-44.0 [facility] ([place] [facility]) [place] % 5.7 % 2.0-8.0 [facility] ([place] [facility]) Baso % 1.0 % 0.0-1.0 [facility] ([place] [facility]) Eos % 0.1 % 0.0-3.0 [facility] ([place] [facility]) Immature Granulocyte % 4.5 % 0-3.0 [facility] ([facility] [place] [facility]) Nucleated Red Blood Cell % 0.2 % 0-0 [facility] ([place] [facility]) Neutrophils # 8.2 10 1.5-8.5 [facility] ([facility]) Lymph # 1.9 10 1.5-5.0 [facility] ([place] [facility]) [place] # 0.7 10 0.0-0.8 [facility] ([place] [facility]) Baso # 0.1 10 0.0-0.2 [facility] ([place] [facility]) Eos # 0.0 10 0.0-0.5 [facility] ([place] [facility]) ID Date Data Source [id number] 06/02/2021 11:05:00 AM EDT [facility] ([facility]) Name Value Range Interpretation Code Description Data Danuta rce(s) Supporting Document(s) White Blood Count 11.4 10 4.0-10.0 [facility] ([facility]) Hemoglobin 15.3 g/dL 13.5-17.5 [facility] ([facility]) Red Blood Count 5.13 10 4.30-6.10 [facility] ([facility]) Hematocrit 47.7 % 42.0-52.0 [facility] ([facility]) Mean Corpuscular Volume 93.0 fl 80.0-96.0 M EDENT ([facility]) Mean Corpuscular Hemoglobin 29.8 pg 27.0-33.0 [facility] ([facility]) Red Cell Distribution Width 15.9 % 11.5-14.5 [facility] ([facility]) Mean Corpuscular HGB Conc 32.1 g/dL 32.0-36.5 [facility] ([facility]) Neutrophils % 71.9 % 36.0-66.0 [facility] Platelet Count, Automated 234 10 150-450 [facility] ([facility]) Lymph % 16.8 % 24.0-44.0 [facility] ([facility]) [place] % 5.7 % 2.0-8.0 [facility] ([facility]) Eos % 0.1 % 0.0-3.0 [facility] ([facility]) Immature Granulocyte % 4.5 % 0-3.0 [facility] ([facility]) Baso % 1.0 % 0.0-1.0 [facility] ([facility]) Neutrophils # 8.2 10 1.5-8.5 [facility] Nucleated Red Blood Cell % 0.2 % 0-0 [facility] ([facility]) Lymph # 1.9 10 1.5-5.0 [facility] ([facility]) [place] # 0.7 10 0.0-0.8 [facility] ([facility]) Baso # 0.1 10 0.0-0.2 [facility] ([facility] Eos # 0.0 10 0.0-0.5 [facility] ([facility]) ID Date Data Source [id number] 06/02/2021 11:05:00 AM EDT [facility] ([facility]) Name Value Range Interpretation Code Description Data Danuta rce(s) Supporting Document(s) Magnesium [Mass/volume] in Serum or Plasma 2.0 mg/dL 1.8-2.4 [facility] ([facility]) Thyroxine (T4) free [Mass/volume] in Serum or Plasma 0.79 ng/dL 0.76- 1.46 [facility] ([facility]) ID Date Data Source [id number] 06/02/2021 11:05:00 AM EDT [facility] ([facility]) Name Value Range Interpretation Code Description Data Danuta rce(s) Supporting Document(s) Glucose, Fasting 149 mg/dL 70-100 [facility] ([facility]) Blood Urea Nitrogen 19 mg/dL 7-18 [facility] ([facility] Creatinine For GFR 1.07 mg/dL 0.70-1.30 [facility] ([facility]) Glomerular Filtration Rate Laboratory test result [facility] ([facility]) <content>Units are mL/min/1.73 m2</content>
<content></content>
<content>Chronic Kidney Disease Staging per NKF:</content>
<content></content>
<content>Stage I & II GFR >=60 Normal to Mildly Decreased</content>
<content>Stage III GFR 30- 59 Moderately Decreased</content>
<content>Stage IV GFR 15-29 Severely Decreased</content>
<content>Stage V GFR <15 Very Little GFR Left</content>
<content>ESRD GFR <15 on MODEL MAKER PLASTIC</content>
<content></content> Sodium Level 139 meq/L 136-145 [facility] ([facility]) Potassium Serum 4.4 meq/L 3.5-5.1 [facility] ([facility]) Chloride Level 106 meq/L 98-107 [facility] ([facility]) Anion Gap 6 meq/L 8-16 [facility] ([facility]) Calcium Level 8.3 mg/dL 8.8-10.2 [facility] ([facility]) Carbon Dioxide Level 27 meq/L 21-32 [facility] ([facility]) Ast/Sgot 24 U/L 7-37 [facility] ([facility]) Alt/SGPT 55 U/L 12-78 [facility] ([facility]) Total Protein 6.0 GM/DL 6.4-8.2 [facility] ([facility]) Bilirubin,Total 0.4 mg/dL 0.2-1.0 [facility] ([facility]) Alkaline Phosphatase 79 U/L 45-117 [facility] ([facility]) Albumin 3.2 GM/DL 3.2-5.2 [facility] ([facility]) Albumin/Globulin Ratio 1.1 [facility] ([facility]) ID Date Data Source [id number] 05/19/2021 02:45:00 PM EDT [facility] ([facility]) Name Value Range Interpretation Code Description Data Danuta rce(s) Supporting Document(s) Magnesium [Moles/volume] in Serum or Plasma 2.2 mg/dL 1.8-2.4 [facility] ([place] [facility]) Thyroxine (T4) free [Mass/volume] in Serum or Plasma 0.73 ng/dL 0.76- 1.46 [facility] ([place] [facility]) ID Date Data Source [id number] 05/19/2021 02:45:00 PM EDT [facility] ([facility]) Name Value Range Interpretation Code Description Data Danuta rce(s) Supporting Document(s) Glucose, Fasting 257 mg/dL 70-100 [facility] ([facility]) Blood Urea Nitrogen 20 mg/dL 7-18 [facility] ([facility]) Creatinine For GFR 1.25 mg/dL 0.70-1.30 [facility] ([facility]) Glomerular Filtration Rate Laboratory test result [facility] ([place] [facility]) <content>Units are mL/min/1.73 m2</content>
<content></content>
<content>Chronic Kidney Disease Staging per NKF:</content>
<content></content>
<content>Stage I & II GFR >=60 Normal to Mildly Decreased</content>
<content>Stage III GFR 30- 59 Moderately Decreased</content>
<content>Stage IV GFR 15-29 Severely Decreased</content>
<content>Stage V GFR <15 Very Little GFR Left</content>
<content>ESRD GFR <15 on MODEL MAKER PLASTIC</content>
<content></content> Sodium Level 138 meq/L 136-145 [facility] ([place] [facility]) Chloride Level 104 meq/L 98-107 [facility] ([facility]) Potassium Serum 4.6 meq/L 3.5-5.1 [facility] ([facility]) Anion Gap 10 meq/L 8-16 [facility] ([place] [facility]) Calcium Level 8.8 mg/dL 8.8-10.2 [facility] ([facility]) Carbon Dioxide Level 24 meq/L 21-32 [facility] ([facility]) Alt/SGPT 52 U/L 12-78 [facility] ([place] [facility] Ast/Sgot 18 U/L 7-37 [facility] ([place] [facility]) Alkaline Phosphatase 89 U/L 45-117 [facility] ([facility]) Total Protein 6.4 GM/DL 6.4-8.2 [facility] ([facility]) Bilirubin,Total 0.3 mg/dL 0.2-1.0 [facility] ([facility]) Albumin 3.3 GM/DL 3.2-5.2 [facility] ([place] [facility] Albumin/Globulin Ratio 1.1 [facility] ([place] [facility]) ID Date Data Source [id number] 05/19/2021 02:45:00 PM EDT [facility] ([facility]) Name Value Range Interpretation Code Description Data Danuta rce(s) Supporting Document(s) White Blood Count 11.6 10 4.0-10.0 [facility] ([facility]) Hemoglobin 15.7 g/dL 13.5-17.5 [facility] ([facility]) Red Blood Count 5.26 10 4.30-6.10 [facility] ([facility]) Mean Corpuscular Volume 92.8 fl 80.0-96.0 [facility] ([place] [facility]) Mean Corpuscular Hemoglobin 29.8 pg 27.0-33.0 [facility] ([place] [facility]) Hematocrit 48.8 % 42.0-52.0 [facility] ([facility]) Red Cell Distribution Width 15.9 % 11.5-14.5 [facility] ([place] [facility]) Mean Corpuscular HGB Conc 32.2 g/dL 32.0-36.5 [facility] NT ([place] [facility]) Platelet Count, Automated 239 10 150-450 [facility] ([place] [facility]) Lymph % 13.2 % 24.0-44.0 [facility] ([place] [facility] Neutrophils % 76.6 % 36.0-66.0 [facility] [place] % 4.0 % 2.0-8.0 [facility] ([place] [facility]) Eos % 0.0 % 0.0-3.0 [facility] ([place] [facility]) Immature Granulocyte % 5.0 % 0-3.0 [facility] ([place] [facility]) Nucleated Red Blood Cell % 0.2 % 0-0 [facility] ([place] [facility]) Baso % 1.2 % 0.0-1.0 [facility] ([place] [facility]) Lymph # 1.5 10 1.5-5.0 [facility] ([place] [facility]) Neutrophils # 8.9 10 1.5-8.5 [facility]) Baso # 0.1 10 0.0-0.2 [facility] ([place] [facility]) Eos # 0.0 10 0.0-0.5 [facility] ([place] [facility]) [place] # 0.5 10 0.0-0.8 [facility] ([place] [facility]) ID Date Data Source [id number] 04/13/2021 09:40:00 AM EDT [facility] ([facility] Name Value Range Interpretation Code Description Data Danuta rce(s) Supporting Document(s) Blood Urea Nitrogen 16 mg/dL 7-18 [facility] ([facility] Glucose, Fasting 209 mg/dL 70-100 [facility] ([facility] Creatinine For GFR 0.67 mg/dL 0.70-1.30 [facility] ([facility] ) Glomerular Filtration Rate [facility] <content>Units are mL/min/1.73 m2</content>
<content></content>
<content>Chronic Kidney Disease Staging per NKF:</content>
<content></content>
<content>Stage I & II GFR >=60 Normal to Mildly Decreased</content>
<content>Stage III GFR 30- 59 Moderately Decreased</content>
<content>Stage IV GFR 15-29 Severely Decreased</content>
<content>Stage V GFR <15 Very Little GFR Left</content>
<content>ESRD GFR <15 on MODEL MAKER PLASTIC</content>
<content></content> Potassium Serum 4.5 meq/L 3.5-5.1 [facility] ([facility]) Sodium Level 136 meq/L 136-145 [facility] Chloride Level 102 meq/L 98-107 [facility] Carbon Dioxide Level 25 meq/L 21-32 [facility] Calcium Level 8.0 mg/dL 8.8-10.2 [facility] Anion Gap 9 meq/L 8-16 [facility] ID Date Data Source [id number] 04/13/2021 09:40:00 AM EDT [facility] ([facility]) Name Value Range Interpretation Code Description Data Danuta rce(s) Supporting Document(s) Calcidiol [Mass/volume] in Serum or Plasma 25.6 ng/mL 30.0-100.0 [facility] ([facility]) ID Date Data Source [id number] 03/05/2021 01:49:00 PM EDT [facility] ([facility]) Name Value Range Interpretation Code Description Data Danuta rce(s) Supporting Document(s) Respiratory Panel [facility] [facility]) This respiratory PCR panel detects Influ [...] - SARS-CoV-2 (COVID19) ID Date Data Source [id number] 03/05/2021 01:49:00 PM EDT [facility] Name Value Range Interpretation Code Description Data Danuta rce(s) Supporting Document(s) SARS-CoV-2 (COVID 19) NEGATIVE - SARS-CoV-2 (COVID19) [place] This lab was ordered by [facility] a nd reported by [facility]. ID Date Data Source [id number] 03/05/2021 01:40:00 PM EDT [facility] ([facility]) Name Value Range Interpretation Code Description Data Danuta rce(s) Supporting Document(s) Bedside Glucose 160 mg/dL 80-115 [facility] ([facility]) ID Date Data Source [id number] 03/05/2021 01:35:00 PM EDT [facility] ([facility]) Name Value Range Interpretation Code Description Data Danuta rce(s) Supporting Document(s) Hemoglobin 16.9 g/dL 13.5-17.5 [facility] ([place] [facility]) White Blood Count 10.3 10 4.0-10.0 [facility] ([facility]) Red Blood Count 5.58 10 4.30-6.10 [facility] ([facility]) Hematocrit 49.8 % 42.0-52.0 [facility] ([place] [facility]) Mean Corpuscular Volume 89.2 fl 80.0-96.0 [facility] ([place] [facility]) Mean Corpuscular Hemoglobin 30.3 pg 27.0-33.0 [facility] ([place] [facility]) Mean Corpuscular HGB Conc 33.9 g/dL 32.0-36.5 [facility] ([place] [facility]) Platelet Count, Automated 190 10 150-450 [facility] ([place] [facility]) Red Cell Distribution Width 16.1 % 11.5-14.5 [facility] ([place] [facility]) Nucleated Red Blood Cell % 0.0 % 0-0 [facility] ([place] [facility]) ID Date Data Source [id number] 03/05/2021 01:35:00 PM EDT [facility] ([facility]) Name Value Range Interpretation Code Description Data Danuta rce(s) Supporting Document(s) Neutrophils 78 % 28-66 [facility] ([place] [facility]) Bands 3 % [facility] ([place] [facility]) Lymphocytes 9 % 16-44 [facility] ([place] [facility] Monocytes 8 % 0-5 [facility] ([place] [facility]) Atypical Lymph 1 % 0-5 [facility] ([facility]) Eosinophils 1 % 0-3 [facility] ([place] [facility]) Anisocytosis Laboratory test result [facility] ([place] [facility]) ID Date Data Source [id number] 03/05/2021 01:35:00 PM EDT [facility] ([facility]) Name Value Range Interpretation Code Description Data Danuta rce(s) Supporting Document(s) Platelets [#/volume] in Blood by Estimate Laboratory test result [facility] ([place] [facility]) ID Date Data Source [id number] 03/05/2021 01:35:00 PM EDT [facility] ([facility]) Name Value Range Interpretation Code Description Data Danuta rce(s) Supporting Document(s) CPK Creatine Phosphokinase 33 U/L 39-308 [facility] ([place] [facility]) CK-MB Value Mass Laboratory test result [facility] ([place] [facility]) MB/CK Relative Index 3.03 [facility] ([facility]) <content>DIAGNOSIS CRITERIA</content>
<content>MMB ng/ml Relative Index (RI)</content>
<content>NON-AMI < or = 5 N/A</content>
<content>OBRIEN ZONE > 5 < or = 4</content>
<content>AMI > 5 > 4</content>
<content></content> Troponin I Laboratory test result [facility] [facility] <content>Troponin I Reference Interval f or Siemens [place] LOCI:</content>
<content></content>
<content>99th Percentile= 0.00-0.045 ng/ml</content>
<content></content>
<content>Risk Stratification:</content>
<content><= 0.10 ng/ml Decreased Risk for Adverse Clinical</content>
<content>Events.</content>
<content>0.10-1.50 ng/ml Increased Risk for Adverse Clinical</content>
<content>Events. Evaluation of additional</content>
<content>criterion and/or repeat testing in 2-6</content>
<content>hours is suggested to rule out myocardial</content>
<content>damage.</content>
<content>>= 1.50 ng/ml Indicative of Myocardial Injury.</content>
<content></content> ID Date Data Source [id number] 03/05/2021 01:35:00 PM EDT [facility] ([facility]) Name Value Range Interpretation Code Description Data Danuta rce(s) Supporting Document(s) Ast/Sgot 20 U/L 7-37 [facility] ([facility]) Alt/SGPT 49 U/L 12-78 [facility] ([facility]) Alkaline Phosphatase 88 U/L 45-117 [facility] ([facility] Bilirubin,Total 1.0 mg/dL 0.2-1.0 [facility] ([facility]) Albumin 2.8 GM/DL 3.2-5.2 [facility] ([facility]) Bilirubin,Direct 0.4 mg/dL 0.0-0.2 [facility] ([facility]) Total Protein 5.4 GM/DL 6.4-8.2 [facility] ([facility]) Albumin/Globulin Ratio 1.1 [facility] ([facility]) ID Date Data Source [id number] 03/05/2021 01:35:00 PM EDT [facility] ([facility] Name Value Range Interpretation Code Description Data Danuta rce(s) Supporting Document(s) Glucose, Fasting 153 mg/dL 70-100 [facility] ([facility]) Creatinine For GFR 1.11 mg/dL 0.70-1.30 [facility] ([facility]) Blood Urea Nitrogen 16 mg/dL 7-18 Significant change down [facility] ([facility]) Glomerular Filtration Rate [facility] [facility] <content>Units are mL/min/1.73 m2</content>
<content></content>
<content>Chronic Kidney Disease Staging per NKF:</content>
<content></content>
<content>Stage I & II GFR >=60 Normal to Mildly Decreased</content>
<content>Stage III GFR 30- 59 Moderately Decreased</content>
<content>Stage IV GFR 15-29 Severely Decreased</content>
<content>Stage V GFR <15 Very Little GFR Left</content>
<content>ESRD GFR <15 on MODEL MAKER PLASTIC</content>
<content></content> Sodium Level 126 meq/L 136-145 [facility] ([facility] [place] [facility]) Potassium Serum 4.5 meq/L 3.5-5.1 [facility] ([facility]) Anion Gap 6 meq/L 8-16 [facility] ([place] [facility]) Chloride Level 94 meq/L 98-107 [facility] ([facility]) Carbon Dioxide Level 26 meq/L 21-32 [facility] ([facility]) Calcium Level 8.3 mg/dL 8.8-10.2 [facility] ([facility]) ID Date Data Source [id number] 03/05/2021 01:35:[address] [facility] ([facility]) Name Value Range Interpretation Code Description Data Danuta rce(s) Supporting Document(s) Thyrotropin [Units/volume] in Serum or Plasma by Detec tion limit <= 0.05 mIU/L Laboratory test result 0.358-3.740 [facility] ([facility] [facility]) Thyroxine (T4) free [Mass/volume] in Serum or Plasma 0.75 ng/dL 0.76- 1.46 [facility] ([facility] [facility]) Magnesium [Moles/volume] in Serum or Plasma 2.0 mg/dL 1.8-2.4 [facility] ([facility] [facility]) Urate [Mass/volume] in Serum or Plasma 4.8 mg/dL 3.5-7.2 [facility] ([facility]) ID Date Data Source [id number] 03/04/2021 09:10:00 AM EDT [facility] ([facility]) Name Value Range Interpretation Code Description Data Danuta rce(s) Supporting Document(s) Glucose, Fasting 120 mg/dL 70-100 [facility] ([facility]) Blood Urea Nitrogen 9 mg/dL 7-18 [facility] ([facility]) Glomerular Filtration Rate Laboratory test result [facility] ([facility] [facility]) <content>Units are mL/min/1.73 m2</content>
<content></content>
<content>Chronic Kidney Disease Staging per NKF:</content>
<content></content>
<content>Stage I & II GFR >=60 Normal to Mildly Decreased</content>
<content>Stage III GFR 30- 59 Moderately Decreased</content>
<content>Stage IV GFR 15-29 Severely Decreased</content>
<content>Stage V GFR <15 Very Little GFR Left</content>
<content>ESRD GFR <15 on MODEL MAKER PLASTIC</content>
<content></content> Creatinine For GFR 0.83 mg/dL 0.70-1.30 [facility] ([facility]) Chloride Level 100 meq/L 98-107 [facility] ([facility]) Potassium Serum 4.3 meq/L 3.5-5.1 Significant change down [facility] ([facility]) Sodium Level 135 meq/L 136-145 [facility] ([facility] [facility]) Anion Gap 8 meq/L 8-16 [facility] ([place] [facility]) Carbon Dioxide Level 27 meq/L 21-32 [facility] ([facility]) Calcium Level 8.4 mg/dL 8.8-10.2 [facility] ([facility]) ID Date Data Source [id number] 03/04/2021 09:10:00 AM EDT [facility] ([facility]) Name Value Range Interpretation Code Description Data Danuta rce(s) Supporting Document(s) Magnesium [Moles/volume] in Serum or Plasma 1.7 mg/dL 1.8-2.4 [facility] ([facility] [facility]) ID Date Data Source [id number] 03/04/2021 09:10:00 AM EDT [facility] ([facility]) Name Value Range Interpretation Code Description Data Danuta rce(s) Supporting Document(s) Calcium.ionized [Mass/volume] in Serum o r Plasma by Ion-selective membrane electrode (ISE) 4.6 mg/dL 4.5-5.3 [facility] ([place] [facility]) ID Date Data Source [id number] 03/03/2021 10:25:00 AM EDT [facility] ([facility]) Name Value Range Interpretation Code Description Data Danuta rce(s) Supporting Document(s) Magnesium [Mass/volume] in Serum or Plasma 1.7 mg/dL 1.8-2.4 [facility] ([facility]) ID Date Data Source [id number] 03/03/2021 10:25:00 AM EDT [facility] ([facility]) Name Value Range Interpretation Code Description Data Danuta rce(s) Supporting Document(s) Glucose, Fasting 150 mg/dL 70-100 [facility] ([facility]) Blood Urea Nitrogen 9 mg/dL 7-18 [facility] ([facility] ) Glomerular Filtration Rate Laboratory test result [facility] ([facility]) <content>Units are mL/min/1.73 m2</content>
<content></content>
<content>Chronic Kidney Disease Staging per NKF:</content>
<content></content>
<content>Stage I & II GFR >=60 Normal to Mildly Decreased</content>
<content>Stage III GFR 30- 59 Moderately Decreased</content>
<content>Stage IV GFR 15-29 Severely Decreased</content>
<content>Stage V GFR <15 Very Little GFR Left</content>
<content>ESRD GFR <15 on MODEL MAKER PLASTIC</content>
<content></content> Creatinine For GFR 0.85 mg/dL 0.70-1.30 [facility] ([facility]) Potassium Serum 3.5 meq/L 3.5-5.1 [facility] ([facility] ) Sodium Level 138 meq/L 136-145 [facility] ([facility] ) Chloride Level 104 meq/L 98-107 [facility] ([facility]) Carbon Dioxide Level 27 meq/L 21-32 [facility]) Calcium Level 7.9 mg/dL 8.8-10.2 [facility]) Anion Gap 7 meq/L 8-16 [facility] ID Date Data Source [id number] 03/01/2021 12:27:00 PM EDT [facility] ([facility]) Name Value Range Interpretation Code Description Data Danuta rce(s) Supporting Document(s) Respiratory Panel Laboratory test result [facility] ([facility] [facility]) This respiratory PCR panel detects Influ [...] - SARS-CoV-2 (COVID19) ID Date Data Source [id number] 03/01/2021 12:27:00 PM EDT [facility] Name Value Range Interpretation Code Description Data Danuta rce(s) Supporting Document(s) SARS-CoV-2 (COVID 19) NEGATIVE - SARS-CoV-2 (COVID19) [facility] was ordered by [facility] a nd reported by [facility]. ID Date Data Source [id number] 02/27/2021 12:00:00 AM EDT [facility] Name Value Range Interpretation Code Description Data Danuta rce(s) Supporting Document(s) SARS-CoV2 Rapid Antigen Negative [facility] This lab was ordered by [facility] and reported by Jayjay Saha MD. ID Date Data Source [id number] 02/23/2021 05:14:00 PM EDT [facility] ([facility]) Name Value Range Interpretation Code Description Data Danuta rce(s) Supporting Document(s) Lactate [Mass/volume] in Serum or Plasma 2.4 mmol/L 0.4-2.0 Above upper panic limits [facility] ([place] [facility]) Y/N query for Sepsis Lactate Rule: Y ID Date Data Source [id number] 02/23/2021 05:14:00 PM EDT [facility] ([facility]) Name Value Range Interpretation Code Description Data Danuta rce(s) Supporting Document(s) Glucose, Fasting 148 mg/dL 70-100 [facility] ([facility]) Blood Urea Nitrogen 14 mg/dL 7-18 [facility] ([facility]) Creatinine For GFR 0.89 mg/dL 0.70-1.30 [facility] ([facility]) Potassium Serum 3.6 meq/L 3.5-5.1 [facility] ([facility]) Sodium Level 143 meq/L 136-145 [facility] ([place] [facility]) Glomerular Filtration Rate Laboratory test result [facility] ([place] [facility]) <content>Units are mL/min/1.73 m2</content>
<content></content>
<content>Chronic Kidney Disease Staging per NKF:</content>
<content></content>
<content>Stage I & II GFR >=60 Normal to Mildly Decreased</content>
<content>Stage III GFR 30- 59 Moderately Decreased</content>
<content>Stage IV GFR 15-29 Severely Decreased</content>
<content>Stage V GFR <15 Very Little GFR Left</content>
<content>ESRD GFR <15 on MODEL MAKER PLASTIC</content>
<content></content> Carbon Dioxide Level 27 meq/L 21-32 [facility] Chloride Level 111 meq/L 98-107 [facility] ([facility]) Calcium Level 7.4 mg/dL 8.8-10.2 [facility] ([facility]) Anion Gap 5 meq/L 8-16 [facility] ([place] [facility]) ID Date Data Source [id number] 02/23/2021 02:19:00 PM EDT [facility] Name Value Range Interpretation Code Description Data Danuta rce(s) Supporting Document(s) Blood Culture Laboratory test result [facility] ([facility] [facility]) No growth after 72 hours . All specimens observed for 5 days. Results final at that time. No growth after 48 hours . All specimens observed for 5 days. Results final at that time. No growth after 24 hours . All specimens observed for 5 days. Results final at that time. NO GROWTH AFTER 5 DAYS ID Date Data Source [id number] 02/23/2021 02:19:00 PM EDT [facility] Name Value Range Interpretation Code Description Data Danuta rce(s) Supporting Document(s) Amphetamines Level Urine Laboratory test result [facility] ([facility] [place] [facility]) Barbiturates Urine Laboratory test result [facility] ([facility] [facility]) Benzodiazepines Urine Laboratory test result [facility] ([place] [facility]) Cocaine Metabolite Urine Laboratory test result [facility] ([place] [facility]) Cannabinoids Urine Laboratory test result [facility] ([place] [facility]) Methadone Urine Laboratory test result [facility] ([facility]) Opiates Urine Laboratory test result [facility] ([place] [facility]) Phencyclidine Urine [facility] [facility] ALL PRESUMPTIVE POSITIVE FINDINGS AR E UNCONFIRMED [...] CALL THE LAB. ID Date Data Source [id number] 02/23/2021 02:19:00 PM EDT [facility] Name Value Range Interpretation Code Description Data Danuta rce(s) Supporting Document(s) Creatinine [Mass/volume] in Urine 105.0 mg/dL [facility] ([place] [facility]) Osmolality of Urine 693 MOSM/KG 50-1400 [facility] ( [place] [facility]) Sodium [Moles/volume] in Urine 111 meq/L [facility] ([place] [facility]) ID Date Data Source [id number] 02/23/2021 02:19:00 PM EDT [facility] Name Value Range Interpretation Code Description Data Danuta rce(s) Supporting Document(s) Appearance, Urine RFX Laboratory test result [facility] ([facility]) Color, Urine RFX Laboratory test result [facility] ([place] [facility]) Protein, Urine Auto RFX Laboratory test result [facility] ([place] [facility]) PH,Urine RFX 6.0 units 5.0-9.0 [facility] ([place] [facility]) Specific [place]ater Ur Auto RFX 1.020 1.002-1.035 [facility] ([place] [facility]) Ketone, Urine Auto RFX Laboratory test result [facility] ([facility]) Glucose, Urine (Ua) Auto RFX Laboratory test result [facility] ([place] [facility]) Nitrite, Urine Auto RFX Laboratory test result [facility] ([place] [facility]) Bilirubin, Urine Auto RFX Laboratory test result [facility] ([facility]) Urobilinogen, Urine Auto RFX 0.2 mg/dL 0.0-2.0 [facility] ([place] [facility]) Blood, Urine Blood RFX Laboratory test result [facility] ([facility]) Leukocyte Esterase Ur Auto RFX Laboratory test result [facility] ([facility]) WBC, Urine Auto RFX 1 /HPF 0-3 [facility] ([facility] Bacteria, Urine Auto RFX Laboratory test result [facility] ([facility]) RBC, Urine Auto RFX 10 /HPF 0-3 [facility] ([facility]) Mucus, Urine RFX Laboratory test result [facility] ([facility]) Squam Epithelial Cell Ur Aurfx 0 /HPF 0-6 [facility] ([place] [facility]) Hyaline Cast, Urine Auto RFX 0 /LPF 0-1 M [facility] ([facility]) ID Date Data Source [id number] 02/23/2021 01:39:00 PM EDT [facility] ([facility]) Name Value Range Interpretation Code Description Data Danuta rce(s) Supporting Document(s) Bedside Glucose 216 mg/dL 80-115 [facility] ([facility]) ID Date Data Source [id number] 02/23/2021 01:10:00 PM EDT [facility] ([facility] Name Value Range Interpretation Code Description Data Danuta rce(s) Supporting Document(s) Osmolality of Serum or Plasma 294 MOSM/KG 280-301 [facility] ([facility]) Salicylates [Mass/volume] in Serum or Plasma Laboratory test result 5.0-30.0 [facility] ([facility] [facility]) Ethanol [Mass/volume] in Serum or Plasma Laboratory test result 0.000 -0.010 [facility] ([place] [facility]) Acetaminophen [Mass/volume] in Serum or Plasma 2.7 UG/ML 10.0-30.0 [facility] ([place] [facility]) Thyroxine (T4) free [Mass/volume] in Serum or Plasma 0.88 ng/dL 0.76- 1.46 [facility] ([facility]) Thyrotropin [Units/volume] in Serum or Plasma by Detec tion limit <= 0.05 mIU/L Laboratory test result 0.358-3.740 [facility] ([facility]) Magnesium [Moles/volume] in Serum or Plasma 1.8 mg/dL 1.8-2.4 [facility] ([facility]) ID Date Data Source [id number] 02/23/2021 01:10:00 PM EDT [facility] Name Value Range Interpretation Code Description Data Danuta rce(s) Supporting Document(s) Blood Urea Nitrogen 16 mg/dL 7-18 [facility] ([facility]) Glucose, Fasting 223 mg/dL 70-100 [facility] ([facility]) Glomerular Filtration Rate Laboratory test result [facility] ([facility]) <content>Units are mL/min/1.73 m2</content>
<content></content>
<content>Chronic Kidney Disease Staging per NKF:</content>
<content></content>
<content>Stage I & II GFR >=60 Normal to Mildly Decreased</content>
<content>Stage III GFR 30- 59 Moderately Decreased</content>
<content>Stage IV GFR 15-29 Severely Decreased</content>
<content>Stage V GFR <15 Very Little GFR Left</content>
<content>ESRD GFR <15 on MODEL MAKER PLASTIC</content>
<content></content> Creatinine For GFR 1.00 mg/dL 0.70-1.30 [facility] ([facility]) Potassium Serum 3.0 meq/L 3.5-5.1 [facility] ([facility]) Chloride Level 104 meq/L 98-107 [facility] ([facility]) Sodium Level 140 meq/L 136-145 [facility] ([place] [facility]) Anion Gap 9 meq/L 8-16 [facility] [facility] Carbon Dioxide Level 27 meq/L 21-32 [facility] ([facility]) Calcium Level 8.5 mg/dL 8.8-10.2 [facility] ([facility]) ID Date Data Source [id number] 02/23/2021 01:10:00 PM EDT [facility] ([facility]) Name Value Range Interpretation Code Description Data Danuta rce(s) Supporting Document(s) Ast/Sgot 18 U/L 7-37 [facility] ([place] [facility] Alt/SGPT 47 U/L 12-78 [facility] ([place] [facility] Alkaline Phosphatase 89 U/L 45-117 [facility] ([facility]) Bilirubin,Total 0.6 mg/dL 0.2-1.0 [facility] ([facility]) Bilirubin,Direct 0.2 mg/dL 0.0-0.2 [facility] ([facility]) Total Protein 5.5 GM/DL 6.4-8.2 [facility] ([facility]) Albumin 2.8 GM/DL 3.2-5.2 [facility] ([place] [facility]) Albumin/Globulin Ratio 1.0 [facility] ([place] [facility]) ID Date Data Source [id number] 02/23/2021 01:10:00 PM EDT [facility] ([facility]) Name Value Range Interpretation Code Description Data Danuta rce(s) Supporting Document(s) CPK Creatine Phosphokinase 22 U/L 39-308 [facility] ([place] [facility]) CK-MB Value Mass 1.2 ng/mL [facility] ([facility]) MB/CK Relative Index 5.45 [facility] ([facility]) <content>DIAGNOSIS CRITERIA</content>
<content>MMB ng/ml Relative Index (RI)</content>
<content>NON-AMI < or = 5 N/A</content>
<content>OBRIEN ZONE > 5 < or = 4</content>
<content>AMI > 5 > 4</content>
<content></content> Troponin I Laboratory test result [facility] ([facility]) <content>Troponin I Reference Interval f or Siemens [place] LOCI:</content>
<content></content>
<content>99th Percentile= 0.00-0.045 ng/ml</content>
<content></content>
<content>Risk Stratification:</content>
<content><= 0.10 ng/ml Decreased Risk for Adverse Clinical</content>
<content>Events.</content>
<content>0.10-1.50 ng/ml Increased Risk for Adverse Clinical</content>
<content>Events. Evaluation of additional</content>
<content>criterion and/or repeat testing in 2-6</content>
<content>hours is suggested to rule out myocardial</content>
<content>damage.</content>
<content>>= 1.50 ng/ml Indicative of Myocardial Injury.</content>
<content></content> ID Date Data Source [id number] 02/23/2021 01:10:[address] [facility] ([facility]) Name Value Range Interpretation Code Description Data Danuta rce(s) Supporting Document(s) Ammonia [Mass/volume] in Blood 26 uMOL/L [facility] ([place] [facility]) Lactate [Mass/volume] in Serum or Plasma 3.9 mmol/L 0.4-2.0 Above upper panic limits [facility] [facility] Y/N query for Sepsis Lactate Rule: Y ID Date Data Source [id number] 02/23/2021 01:10:00 PM EDT [facility] ([facility]) Name Value Range Interpretation Code Description Data Danuta rce(s) Supporting Document(s) White Blood Count 8.0 10 4.0-10.0 [facility] ([facility]) Hemoglobin 15.7 g/dL 13.5-17.5 [facility] ([facility]) Red Blood Count 5.06 10 4.30-6.10 [facility] ([facility]) Mean Corpuscular Volume 93.1 fl 80.0-96.0 [facility] ([place] [facility]) Hematocrit 47.1 % 42.0-52.0 [facility] ([facility]) Mean Corpuscular Hemoglobin 31.0 pg 27.0-33.0 [facility] ([place] [facility]) Red Cell Distribution Width 16.3 % 11.5-14.5 [facility] ([place] [facility]) Mean Corpuscular HGB Conc 33.3 g/dL 32.0-36.5 [facility] ([place] [facility]) Platelet Count, Automated 160 10 150-450 [facility] ([place] [facility]) Neutrophils % 74.6 % 36.0-66.0 [facility] ([facility]) Lymph % 14.8 % 24.0-44.0 [facility] [facility] [place] % 4.1 % 2.0-8.0 [facility] ([place] [facility] Eos % 0.0 % 0.0-3.0 [facility] [facility] Nucleated Red Blood Cell % 0.4 % 0-0 [facility] ([place] [facility]) Immature Granulocyte % 5.0 % 0-3.0 [facility] ([place] [facility]) Baso % 1.5 % 0.0-1.0 [facility] [facility] Lymph # 1.2 10 1.5-5.0 [facility] [facility] Neutrophils # 6.0 10 1.5-8.5 [facility] ([facility]) [place] # 0.3 10 0.0-0.8 [facility] [facility] Baso # 0.1 10 0.0-0.2 [facility] [facility] Eos # 0.0 10 0.0-0.5 [facility] [facility] ID Date Data Source [id number] 02/23/2021 01:10:[address] [facility] Name Value Range Interpretation Code Description Data Danuta rce(s) Supporting Document(s) Blood Culture Laboratory test result [facility] ([place] [facility]) No growth after [...] AFTER 5 DAYS ID Date Data Source [id number] 01/26/2021 08:51:[address] [facility] ([facility] Name Value Range Interpretation Code Description Data Danuta rce(s) Supporting Document(s) Testosterone [Mass/volume] in Serum or Plasma 201 ng/dL [id number] [facility] ([facility]) NORMAL RANGES ARE FOR ADULT FEMALES (OVE R 15 YRS) AND MALES (OVER 19 YRS). FOR PEDIATRIC RANGES PLE ASE CONSULT LITERATURE. ID Date Data Source [id number] 01/26/2021 08:50:[address] [facility] ([facility] Name Value Range Interpretation Code Description Data Danuta rce(s) Supporting Document(s) Thyroxine (T4) free [Mass/volume] in Serum or Plasma 0.93 ng/dL 0.76- 1.46 [facility] ([place] [facility]) ID Date Data Source [id number] 01/26/2021 08:50:[address] [facility] ([facility] Name Value Range Interpretation Code Description Data Danuta rce(s) Supporting Document(s) Glucose mean value [Mass/volume] in Blood Estimated fr om glycated hemoglobin 140 mg/dL 60-110 [facility] ([place] [facility] Hemoglobin A1c/Hemoglobin.total in Blood 6.5 % [facility] ([place] [facility]) Lab Result Notes: Pre-Diabetes 5.7 - 6.4 % Diabetes = or > 6.5% ID Date Data Source [id number] 01/26/2021 08:50:00 AM EDT [facility] ([facility]) Name Value Range Interpretation Code Description Data Danuta rce(s) Supporting Document(s) Glucose [Mass/volume] in Serum or Plasma 248 mg/dL 74-99 [facility] ([place] [facility]) 100-125 mg/dL PRE-DIABETES/FASTING >126 mg/dL DIABETES/FASTING Urea nitrogen [Mass/volume] in Serum or Plasma 19 mg/dL 7-18 [facility] ([place] [facility]) Creatinine 1.1 mg/dL 0.6-1.3 [facility] Sodium [Moles/volume] in Serum or Plasma 141 meq/L 136-145 [facility] ([place] [facility]) Potassium [Moles/volume] in Serum or Plasma 3.2 meq/L 3.5-5.1 [facility] ([place] [facility]) Chloride [Moles/volume] in Serum or Plasma 102 meq/L 98-107 [facility] ([place] [facility]) Calcium [Mass/volume] in Serum or Plasma 8.2 mg/dL 8.5-10.1 [facility] ([place] [facility]) Carbon dioxide, total [Moles/volume] in Serum or Plasma 25 meq/L 21 -32 [facility] ([place] [facility]) Alkaline phosphatase isoenzyme [Units/volume] in Serum or Pl asma 110 mg/dL 46-116 [facility] ([place] [facility]) Total Bilirubin 0.6 mg/dL 0.2-1.0 [facility] ([facility]) Aspartate aminotransferase [Enzymatic activity/volume] in Serum or Plasma 22 U/L 15-37 [facility] ([facility] ) Albumin [Mass/volume] in Serum or Plasma 2.8 g/dL 3.4-5.0 [facility] ([facility]) Alanine aminotransferase [Enzymatic activity/volume] in Seru m or Plasma 70 U/L 12-78 [facility] ([facility]) A/G Ratio 0.93 CALC 1.00-1.90 [facility]) Proteinase 3 Ab [Units/volume] in Serum 5.8 g/dL 6.4-8.2 [facility] ([facility]) Glomerular filtration rate/1.73 sq M pre dicted among non-blacks [Volume Rate/Area] in Serum or Plasma by Creatinine-based formula (MDRD) Laboratory test result [facility] ([facility] ) Glomerular filtration rate/1.73 sq M pre dicted among blacks [Volume Rate/Area] in Serum or Plasma by Creatinine-based formula (MDRD) Laboratory test result [facility] ([facility]) <content>CHRONIC KIDNEY DISEASE STAGING PER NKF</content>
<content></content>
<content>STAGE I & II GFR >= 60 NORMAL TO MILDLY DECREASED</content>
<content>STAGE III GFR 30-59 MODERATELY DECREASED</content>
<content>STAGE IV GFR 15-29 SEVERELY DECREASED</content>
<content>STAGE V GFR <15 VERY LITTLE GFR LEFT</content>
<content>ESRD GFR <15 ON MODEL MAKER PLASTIC</content>
<content></content> ID Date Data Source [id number] 01/26/2021 08:50:[address] [facility] Name Value Range Interpretation Code Description Data Danuta rce(s) Supporting Document(s) Erythrocytes [#/volume] in Blood by Automated count 4.97 x10*6/UL 4.2 0-6.30 [facility] Leukocytes [#/volume] in Blood by Automated count 13.0 x10*3/UL 4.1-[address] [facility] ([facility]) NOTE: CBC VERIFIED Hematocrit [Volume Fraction] of Blood by Automated count 45.1 % 3 7.0-51.0 [facility] ([facility] Hemoglobin [Mass/volume] in Blood 15.1 g/dL 12.0-18.0 [facility] ([facility]) MCH 30.4 pg 26.0-32.0 [facility] MCV 90.8 fL 80.0-97.0 [facility] MCHC 33.5 g/dL 31.0-38.0 [facility] Erythrocyte distribution width [Ratio] by Automated count 15.3 % 11.6-13.7 [facility] ([facility]) Platelets [#/volume] in Blood by Automated count 187 x10*3/UL 140-440 [facility] ([facility]) Lymph % 10.8 % 10.0-58.5 [facility] ([facility] MPV 8.3 FL 7.8-11.0 [facility] Neut % 85.6 % 37.0-92.0 [facility] ([facility]) Mid % 3.6 % 1.7-9.3 [facility] ([facility] Neut # 11.2 x10*3/UL 2.0-7.8 [facility] ([facility]) Mid # 0.4 x10*3/UL 0.1-0.6 [facility] ([facility]) Lymph # 1.4 x10*3/UL 0.6-4.1 [facility] ([facility]) ID Date Data Source [id number] 01/13/2021 02:50:00 PM EDT [facility] Name Value Range Interpretation Code Description Data Danuta rce(s) Supporting Document(s) SARS-CoV-2 (COVID-19) Negative [facility] This lab was ordered by [facility] and reported by [employer]. ID Date Data Source [id number] 01/08/2021 03:17:00 PM EDT [facility] ([facility]) Name Value Range Interpretation Code Description Data Danuta rce(s) Supporting Document(s) Glucose, Fasting 226 mg/dL 70-100 [facility] ([facility]) Blood Urea Nitrogen 15 mg/dL 7-18 [facility] ([facility]) Glomerular Filtration Rate Laboratory [facility]) <content>Units are mL/min/1.73 m2</content>
<content></content>
<content>Chronic Kidney Disease Staging per NKF:</content>
<content></content>
<content>Stage I & II GFR >=60 Normal to Mildly Decreased</content>
<content>Stage III GFR 30- 59 Moderately Decreased</content>
<content>Stage IV GFR 15-29 Severely Decreased</content>
<content>Stage V GFR <15 Very Little GFR Left</content>
<content>ESRD GFR <15 on MODEL MAKER PLASTIC</content>
<content></content> Sodium Level 139 meq/L 136-145 [facility] ([facility]) Creatinine For GFR 1.09 mg/dL 0.70-1.30 [facility] ([facility]) Chloride Level 103 meq/L 98-107 [facility] ([facility]) Potassium Serum 3.8 meq/L 3.5-5.1 [facility] ([facility]) Anion Gap 6 meq/L 8-16 [facility] ([facility] Carbon Dioxide Level 30 meq/L 21-32 [facility] ([facility]) Calcium Level 7.9 mg/dL 8.8-10.2 [facility] ([facility]) ID Date Data Source [id number] 01/08/2021 03:17:00 PM EDT [facility] ([facility]) Name Value Range Interpretation Code Description Data Danuta rce(s) Supporting Document(s) Magnesium [Moles/volume] in Serum or Plasma 2.3 mg/dL 1.8-2.4 [facility] ([facility]) ID Date Data Source [id number] 01/08/2021 03:17:00 PM EDT [facility] ([facility]) Name Value Range Interpretation Code Description Data Danuta rce(s) Supporting Document(s) Blood Urea Nitrogen 16 mg/dL 7-18 [facility] ([facility]) Creatinine For GFR 1.11 mg/dL 0.70-1.30 [facility] ([facility]) Glucose, Fasting 237 mg/dL 70-100 [facility] ([facility]) Glomerular Filtration Rate Laboratory test result [facility] ([facility]) <content>Units are mL/min/1.73 m2</content>
<content></content>
<content>Chronic Kidney Disease Staging per NKF:</content>
<content></content>
<content>Stage I & II GFR >=60 Normal to Mildly Decreased</content>
<content>Stage III GFR 30- 59 Moderately Decreased</content>
<content>Stage IV GFR 15-29 Severely Decreased</content>
<content>Stage V GFR <15 Very Little GFR Left</content>
<content>ESRD GFR <15 on MODEL MAKER PLASTIC</content>
<content></content> Sodium Level 141 meq/L 136-145 [facility] ([facility]) Chloride Level 103 meq/L 98-107 [facility] ([facility]) Potassium Serum 3.9 meq/L 3.5-5.1 [facility] ([facility]) Carbon Dioxide Level 30 meq/L 21-32 [facility] ([facility]) Ast/Sgot 21 U/L 7-37 [facility] ([facility] Anion Gap 8 meq/L 8-16 [facility] ([facility] Calcium Level 8.3 mg/dL 8.8-10.2 [facility] ([facility]) Alkaline Phosphatase 126 U/L 45-117 [facility] ([facility]) Alt/SGPT 62 U/L 12-78 [facility] Total Protein 5.3 GM/DL 6.4-8.2 [facility] (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 ) Name Value Range Interpretation Code Description Data Danuta rce(s) Supporting Document(s) Glucose, Fasting 100 mg/dL 70-100 [facility] ([facility]) Glomerular Filtration Rate Laboratory test result [facility] ([facility]) <content>Units are mL/min/1.73 m2</content>
<content></content>
<content>Chronic Kidney Disease Staging per NKF:</content>
<content></content>
<content>Stage I & II GFR >=60 Normal to Mildly Decreased</content>
<content>Stage III GFR 30- 59 Moderately Decreased</content>
<content>Stage IV GFR 15-29 Severely Decreased</content>
<content>Stage V GFR <15 Very Little GFR Left</content>
<content>ESRD GFR <15 on MODEL MAKER PLASTIC</content>
<content></content> Blood Urea Nitrogen 29 mg/dL 7-18 [facility] ([facility]) Creatinine For GFR 1.19 mg/dL 0.70-1.30 [facility] ([facility]) Sodium Level 137 meq/L 136-145 [facility] ([facility]) Potassium Serum 4.2 meq/L 3.5-5.1 [facility] ([facility]) Chloride Level 100 meq/L 98-107 [facility] ([facility] Carbon Dioxide Level 33 meq/L 21-32 [facility] ([facility]) Calcium Level 9.2 mg/dL 8.8-10.2 [facility] ([facility]) Anion Gap 4 meq/L 8-16 [facility] ([facility]) ID Date Data Source [id number] 10/31/2020 01:10:00 PM EST [facility] ([facility]) Name Value Range Interpretation Code Description Data Danuta rc(s) Supporting Document(s) Glucose, Fasting 100 mg/dL 70-100 [facility] ([facility]) Blood Urea Nitrogen 29 mg/dL 7-18 [facility] ([facility]) Creatinine For GFR 1.19 mg/dL 0.70-1.30 [facility] ([facility]) Glomerular Filtration Rate Laboratory test result [facility] ([facility]) <content>Units are mL/min/1.73 m2</content>
<content></content>
<content>Chronic Kidney Disease Staging per NKF:</content>
<content></content>
<content>Stage I & II GFR >=60 Normal to Mildly Decreased</content>
<content>Stage III GFR 30- 59 Moderately Decreased</content>
<content>Stage IV GFR 15-29 Severely Decreased</content>
<content>Stage V GFR <15 Very Little GFR Left</content>
<content>ESRD GFR <15 on MODEL MAKER PLASTIC</content>
<content></content> Sodium Level 137 meq/L 136-145 [facility] ([facility]) Potassium Serum 4.2 meq/L 3.5-5.1 [facility] ([facility]) Chloride Level 100 meq/L 98-107 [facility] ([facility]) Carbon Dioxide Level 33 meq/L 21-32 [facility] ([facility]) Anion Gap 4 meq/L 8-16 [facility] ([facility]) Calcium Level 9.2 mg/dL 8.8-10.2 [facility] ([facility]) ID Date Data Source [id number] 10/27/2020 05:18:00 AM EST [facility] Name Value Range Interpretation Code Description Data Danuta rce(s) Supporting Document(s) SARS coronavirus 2 RNA [Presence] in Res piratory specimen by YENNI with probe detection NEGATIVE [facility] This lab was ordered by [facility] a nd reported by [facility]. ID Date Data Source [id number] 10/24/2020 08:53:02 AM EST [facility] Name Value Range Interpretation Code Description Data Danuta rce(s) Supporting Document(s) Progress Note [facility] AVVOOb7sUgPPHjUr86/OOBepINWuj4VdTXthLSh4OOijIEHaQ3KgOEX6nW1aWQW2NSfBOlRuZpZeWES5 [facility] [file] [id number]== ID Date Data Source [id number] 09/25/2020 03:06:00 PM EST [facility] ([facility]) Name Value Range Interpretation Code Description Data Danuta rce(s) Supporting Document(s) Hemoglobin 17.7 g/dL 13.5-17.5 [facility] ([facility]) Red Blood Count 6.04 10 4.30-6.10 [facility] ([facility]) White Blood Count 9.6 10 4.0-10.0 [facility] ([facility]) Mean Corpuscular Volume 92.1 fl 80.0-96.0 M [facility] ([facility]) Hematocrit 55.6 % 42.0-52.0 [facility] ([facility]) Mean Corpuscular Hemoglobin 29.3 pg 27.0-33.0 [facility] ([facility] ) Platelet Count, Automated 306 10 150-450 [facility] ([facility]) Mean Corpuscular HGB Conc 31.8 g/dL 32.0-36.5 [facility] ([facility]) Red Cell Distribution Width 14.8 % 11.5-14.5 [facility] ([facility]) Nucleated Red Blood Cell % 0.0 % 0-0 [facility] ([facility]) ID Date Data Source [id number] 09/25/2020 03:06:00 PM EST [facility] ([facility]) Name Value Range Interpretation Code Description Data Danuta rce(s) Supporting Document(s) Creatinine For GFR 1.27 mg/dL 0.70-1.30 [facility] ([facility]) Glucose, Fasting 141 mg/dL 70-100 [facility] ([facility]) Blood Urea Nitrogen 21 mg/dL 7-18 [facility] ([facility]) Potassium Serum 3.8 meq/L 3.5-5.1 [facility] ([facility]) Sodium Level 138 meq/L 136-145 [facility] ([facility]) Glomerular Filtration Rate 59.9 [facility] ([facility]) <content>Units are mL/min/1.73 m2</content>
<content></content>
<content>Chronic Kidney Disease Staging per NKF:</content>
<content></content>
<content>Stage I & II GFR >=60 Normal to Mildly Decreased</content>
<content>Stage III GFR 30- 59 Moderately Decreased</content>
<content>Stage IV GFR 15-29 Severely Decreased</content>
<content>Stage V GFR <15 Very Little GFR Left</content>
<content>ESRD GFR <15 on MODEL MAKER PLASTIC</content>
<content></content> Carbon Dioxide Level 32 meq/L 21-32 [facility] ([facility]) Anion Gap 4 meq/L 8-16 [facility] ([facility]) Chloride Level 102 meq/L 98-107 [facility] ([facility]) Calcium Level 9.2 mg/dL 8.8-10.2 [facility] ([facility]) ID Date Data Source [id number] 09/25/2020 03:06:00 PM EST [facility] ([facility]) Name Value Range Interpretation Code Description Data Danuta rce(s) Supporting Document(s) Testosterone [Mass/volume] in Serum or Plasma 522 ng/dL 241-827 [facility] ([facility]) NORMAL RANGES ARE FOR ADULT FEMALES (OVE R 15 YRS) AND MALES (OVER 19 YRS). FOR PEDIATRIC RANGES PLE ASE CONSULT LITERATURE. Thyroxine (T4) free [Mass/volume] in Serum or Plasma 0.90 ng/dL 0.76- 1.46 [facility] ([facility]) ID Date Data Source [id number] 09/18/2020 05:37:00 PM EST [facility] Name Value Range Interpretation Code Description Data Danuta rce(s) Supporting Document(s) Progress Note [facility] TXMAYd4qPuYCRdDb91/IEDadQSJdv6WvXStwTDw4PRhtASBpT6LuWGC8rB9bLPU8DAdVOuZaFfUdLtCn [facility] [file] 5IcC0+PHBmbJr/jBBmbJr/jBBmbJr/hRRnrcC1lZ9ts+lAVGfmgw/rTdGoPGbgTWX7zu0/XDM6lHs/Jose G [file] MfFcVH5MGOx= ID Date Data Source [id number] 09/18/2020 02:01:[address] [facility] Name Value Range Interpretation Code Description Data Danuta rce(s) Supporting Document(s) [facility] LNHYAq3qQkEPOjIl78/OQYgwJDRvg6HaPYxaCOv5RMroVRYzZ6YzLNM0kR1yMHY1NBmNNsPkUgNyEwXa lbm [file] ICAgICAgICAgICAgICAgICAgICAgICAgICAgICAgICAgICAgICAgICAgICAgICAgICAgICAgICAgICAg ICAgICAgICAgICAgICAgICAgICANCiAgICAgICAgICAgICAgICAgICAgICAgICAgICAgICAgICAgICAg ICAgICAgICAgICAgICAgICAgICAgICAgICAgICAgIC AgICAgICAgICAgICAgICAgICAgICAgICAgICAgICANCiAgICAgICAgICAgICAgICAgICAgICAgICAgIC AgICAgICAgICAgICAgICAgICAgICAgICAgICAgICAgICAgICAgICAgICAgICAgICAgICAgICAgICAgIC AgICAgICAgICAgICANCiAgICAgICAgICAgICAgICAg ICAgICAgICAgICAgICAgICAgICAgICAgICAgICAgICAgICAgICAgICAgICAgICAgICAgICAgICAgICAg ICAgICAgICAgICAgICAgICAgICAgICANCiAgICAgICAgICAgICAgICAgICAgICAgICAgICAgICAgICAg ICAgICAgICAgICAgICAgICAgICAgICAgICAgICAgIC AgICAgICAgICAgICAgICAgICAgICAgICAgICAgICAgICANCiAgICAgICAgICAgICAgICAgICAgICAgIC AgICAgICAgICAgICAgICAgICAgICAgICAgICAgICAgICAgICAgICAgICAgICAgICAgICAgICAgICAgIC AgICAgICAgICAgICAgICANCiAgICAgICAgICAgICAg ICAgICAgICAgICAgICAgICAgICAgICAgICAgICAgICAgICAgICAgICAgICAgICAgICAgICAgICAgICAg ICAgICAgICAgICAgICAgICAgICAgICAgICANCiAgICAgICAgICAgICAgICAgICAgICAgICAgICAgICAg ICAgICAgICAgICAgICAgICAgICAgICAgICAgICAgIC AgICAgICAgICAgICAgICAgICAgICAgICAgICAgICAgICAgICANCiAgICAgICAgICAgICAgICAgICAgIC AgICAgICAgICAgICAgICAgICAgICAgICAgICAgICAgICAgICAgICAgICAgICAgICAgICAgICAgICAgIC AgICAgICAgICAgICAgICAgICANCiAgICAgICAgICAg ICAgICAgICAgICAgICAgICAgICAgICAgICAgICAgICAgICAgICAgICAgICAgICAgICAgICAgICAgICAg ICAgICAgICAgICAgICAgICAgICAgICAgICAgICANCjw/hIEjR9qzsYKupaI3R1wjSg2FGb6GFJ1kp5Qj KROcZDsjwrNfVniIBnAuVYMaUzbNYpa8MOyeUZ5NwU KyW9PpI2GqHRsnTG4MLOTlSYIivPHgPRRsHXEvMzS3BDAbNRxqOJ2TfGTvELgbEQOhTUFaDtUbLMEhXO IaZTAfDUQaUXEMLAZhNFXlQxHzJATtIWWgUR6UDMQhI056izLfYp7BDl2BTuAbZQ2hcc6QOvGpLVYrUy xMRcf3EMttPQ0GfXArtJSzOdYwXWQJYkCzL0qot9Pb VnReHTFKOJzbVG2Ps3KsgMJsRZt+Oe6GRX5ig4ObRDpeBkOeTI1snd3FFUpMWtAjI1FjqJdlCISzueX6 bLBwDGE6GEX9aHPeXGJ7rtDeBXfvMQKhTTCpVPCdOogbZcLzZKOzKvo2MNPHMWyAOaGwS1Ggl9AnTxA7 JZYxPgWfJIrtUVPkFoX6MB96wAbyAL9QFMFmSIHyMI 87BPCcANSnYl0XUh7BTbCuCH4dej7YAuSiQVRuIplJGyz3XFpcMF9GkHWiC3NaxOUxd4gSVwUtF4VLYI JmRRJrPm7LIMAjUuSxQWWeIWjsVZ5nJSAgOGQNeAoexlF6MS6IRW9djmThZF9TRoGxWg1eBi0NLrYwT6 OyA0KhBOCgPJNMJKkeSK3USGqyJL2wMP0Im1ELcVPl iG2zmb3DTRZgUDXuCflddl3JBpxaW4D1fPaqDGIcSlKpCAKTBJxpXO2NVEDaVVM8OTUeGTYlYCIIDcQk S29pBH2KZ3Naz20hOuJ5QHBjHhExVRsfAR54gDgfnhYzaTMkfIroDC1ZKw7+DQplbmRvYmoNCnhyZWYN TfIfTpAGKvVwGIMpVQPlDEBeTuM3TpUaBq0XKYAhCJ AvUMNxPyDcBQWyPIXaADybDGEyFPS4ZCPwXEUeYEWgZY6INaTpWHLpScF4OIkwPBMeAWYsus4ALPZoVP UuYAF3CbPrFBRyTXVuOMeaDIIaLWZhDAL5PQCoRFBqTK0DXfSuNODdHFQ2HkBoVMJeDOFfdv2VOITbZW DbJjVpRtMaQUIpJSDhBPteYVYnQTG7GCX0DDGiZNLx IU7WJcHuMBVtKNe6YPImLFAeCVRwuq9TLWRcKUSrQTShNLIaMJDwAMWpPBfzYXMfIVFpAOT5LNEzQSTv MX1KUgDzIGHvPRNdGKFvBPKnUMRqkx1BWKYpNVHnJFz5BCBcGYVeYVTyEMirMVGuIEA2QBHgOQRzBAVx ZB8CVbRwUNPcETa6KhdvHVXjNYHuqb4WDLRlSCXpLj awANGaBXHwCZKwMHwqUTZvJMX1Rjc9CTBlUPQzLV8PDfNnPAIsFVa2YILmRZBlZIUwai6MAIRvUPEmTB Q6NYJoOZNpSCHqKVspCGSqCWOhEGCdVOUkIXVfGG8HUuFyEKAfTuAsQjJzNOWwDAFuzb0DIWEjBZPiYZ QaAzUtPZXdHPBnQXmuTSMtAGKcBVE4ODGzNVUnTB3H OtHgUVZwJdTbHcQsBHCpVAMygq6ZRVTkHXIfFuWpSBJmEEPlDTHbOTlrXHYuKIVnSuo8MWVqTKAwVX9S OeEdBLWoDqA3PxJiHLBuEEAgvr1YRQOoWRJuSmx0FIQfMIRgNSUxORalSHVuHRQeVAJeNQCjSBKdOQ6W OwAlLYBxQzHfPrHrZQAoNVHihh0CMFSrBQTkHLV9Kd EaNAXuBNShAMdnEYUsDHT9YTR0AIUlKIAgNI5BJmQpYEEoEaFsSVblKJPtZADjhd4ZSUAeDHLrRmYtUQ YqKNAzCLUdCQf9imGnzQNyAKx2JT4QM0XdhuJzZxPBWo1Ay593DMS3ROUbFp3GC8cfUu3zDQZiFAKHWe 9KREk8BBDwDNF7QVXkETD9UdWkTSvvXZA9KUQdZzA5 NjNjNmE+ZQiqJPEvJrZrYZYvAfhoAaI2EDA2LILuOFI2Apm6C0U0MB9nMUJHFg9+DQpzdGFydHhyZWYN UzB7RFv2JTsbBEXKWv6E ID Date Data Source [id number] 09/15/2020 06:04:04 PM [facility] Name Value Range Interpretation Code Description Data Danuta rce(s) Supporting Document(s) Consultation [facility] CGRGVv8rYaDPQfKi70/JMMnfMMAyi3ZzNUxhAHg8ORjsTNShK0JkNEL3wC5yATT8LItIRpDnWwFiDLMi lbm OhJaiCKoRlPGWmRdvQVwPwJUykMjofiWBwWS1QfZX9OHAzP22sWIXcHLMeV1PxSBA4JgY+Yp4AKKNswA IbWF5VKoyD5H7ce9cREm6+fV0WRqsrbooTjdsWQEsl19reftBuXoiklSvBhhvtbNw4bCRM/aeHK6znhL /fvWgENS4GYw2LAgQ8K+9dcZUq/tln4rpXLQpG/V1/ 9UNLXd+rv/9XuV7yxwFho4/nOYCQNtWHLcueQ70p4kMTG2R/1jQcECB1DSlsAaP84uOhrVq1mrLcDq5M yUs1iK+oAHWZ0Y8ausvwyhSB6g3FC938Gi0/U/2h+bU8VeXjPLWI553bKAI5Mi4nPfu8Vvx5QhvKuBAZ xJrrKY13HwuA9f9rox+kWubQSDkfpEhfpeKWROpGL/ mZflYstMOxYNfoNKdTro4aKMIUpsmm+xSPxS5bDj7FuC7e88jv7WK7jV1bMeuj7B2TZi0MszoxcpDwHV EAHhQ7a6EXFcIox/uDq2zhQPz0Scn8bQ6wlSJvt+8y+iCufSkV7nACZxYPQZsmEg7JSBxcQG646JrOMe Q5FX/hIlgUVLd9qnokyGEB+QcdMXfaLryzfYhBu59h SIKcoOLfHOqTrdScwUZJSIn8qEOamxheqyj5bj9PMKL8L5gq8dHussazfmGGELq5r1P9Yvy55GoL9/WK VwH0OunAQvy3eaY+DXLIH9rsLq1p6iFl22EJjxH7EhuuNxSxvrMursb2jZOaBqvq188o9dXez6f5YAR3 ex6wciEKnysNuUwTU1yiiBG4sakCPH7Mvdt3gyCBfa 1Jq5onMqTVFXFz2gbtOogn6sWim1+W23pbuQHexNDbOOXlugy4u08oD6czHlZxezfBjXtFZ/8kxM3WvO MyGLwlNGBhVMuVhcQChwq654tWODxJZAz+a5SayX+q4UR/jFS3mp4CDPqfqI7jfPAYLW2bT/XOPkegsZ 0o7NDLTfvuEXE65sjdsGw2VUamJvLg+7+jae49oOy9 fbH5X6JhGhGP0kaNUiy/lqM9x2WhgT/zqrwqn3iTWxZFmhqwYmbR8XaF3hrfPEdlyw2ApiQynoUU0+wl 6jOIcUDO1gTKpJr8Tf0vPSorDZCX3FWKT9mASg6XhblgvLHZcEsuXq/3DYRprNWRk153u9UJITXvv61b rwJsYCMPyNRwDEgBMQuiyaRnxtXzzXCjqJ/FGzqWlW g7dgEgSw6PyBQ6Mf/cwL9Mk/k3ruuiOm+lil2NpxPm0OVsmMj6Xyfuvcd0kJHv2AXTtVlNb4fmM9IxpC HbaUgkukltgdNuS1wBrpbCvsf0Oxb5PcMpxmcDDGdyFuLe9CZjDUgRJy1Esgi09AfgTOmfRfP/oQOOmy V4wlWfQ74h4YiZRoqdNctBAI4p45Bx4GWP6BVx/SV6 QzhdZT3bxTIabkAnrKE445+htC0aRruIuDushIYCRaBsH7VtsFJ9c8OiqVkabZ6zAQ6Z/Q87UU6Ut/brand representative [file] AgICAgICAgICAgICAgICAgICAgICAgICAgICAgICAgICAgICAgICAgICAgICAgICAgICAgICAgICAgIC AgICAgICAgICAgICAgICAgICAgICAgICAgDQogICAgICAgICAgICAgICAgICAgICAgICAgICAgICAgIC AgICAgICAgICAgICAgICAgICAgICAgICAgICAgICAg ICAgICAgICAgICAgICAgICAgICAgICAgICAgICAgICAgICAgDQogICAgICAgICAgICAgICAgICAgICAg ICAgICAgICAgICAgICAgICAgICAgICAgICAgICAgICAgICAgICAgICAgICAgICAgICAgICAgICAgICAg ICAgICAgICAgICAgICAgICAgDQogICAgICAgICAgIC AgICAgICAgICAgICAgICAgICAgICAgICAgICAgICAgICAgICAgICAgICAgICAgICAgICAgICAgICAgIC AgICAgICAgICAgICAgICAgICAgICAgICAgICAgDQogICAgICAgICAgICAgICAgICAgICAgICAgICAgIC AgICAgICAgICAgICAgICAgICAgICAgICAgICAgICAg ICAgICAgICAgICAgICAgICAgICAgICAgICAgICAgICAgICAgICAgDQogICAgICAgICAgICAgICAgICAg ICAgICAgICAgICAgICAgICAgICAgICAgICAgICAgICAgICAgICAgICAgICAgICAgICAgICAgICAgICAg ICAgICAgICAgICAgICAgICAgICAgDQogICAgICAgIC AgICAgICAgICAgICAgICAgICAgICAgICAgICAgICAgICAgICAgICAgICAgICAgICAgICAgICAgICAgIC AgICAgICAgICAgICAgICAgICAgICAgICAgICAgICAgDQogICAgICAgICAgICAgICAgICAgICAgICAgIC AgICAgICAgICAgICAgICAgICAgICAgICAgICAgICAg ICAgICAgICAgICAgICAgICAgICAgICAgICAgICAgICAgICAgICAgICAgDQogICAgICAgICAgICAgICAg ICAgICAgICAgICAgICAgICAgICAgICAgICAgICAgICAgICAgICAgICAgICAgICAgICAgICAgICAgICAg ICAgICAgICAgICAgICAgICAgICAgICAgDQogICAgIC AgICAgICAgICAgICAgICAgICAgICAgICAgICAgICAgICAgICAgICAgICAgICAgICAgICAgICAgICAgIC NjWSErWURwQBXyRCWkVHEcVEMyOUKkUCIzKAHrSYEsLHOgLUv8P1yhNHRhBWVcWL2fOLt6Sa0+DQoNCm TuACN5vqRzlB5FNB5zn9IdLEutAKPcv4WiSRc8NB3V NHLuOPbrPG2HCSceqr0FYPKwXFOwzKPMc8lcLhJdPHG9OHMoNontMS2DGGTzQ1cacoOsHJNcFEMCXBmg SQKJPCanJGSEIYPpTPMyBkHoXgGaVMMcTN3QCGXhP558rrOnZV6LFl1GNbToES3xsp5DSgRgEKRiUkgV Qsg1NKtnEQ3UrDEllAGjVUQsNGPXFaDlL8zjb9PkDy YdWVNTGXjtTM4Cw3UpvXLiXBf+Bb8QRB1tz9MnGKixWTIiTV3rmt9RUNnGRaLqT6GaoHkfVYSvhsD1tZ AvFCR4UZPkdJmemDUPmkvdnV4daMNjiNg4FKDQPWAbxQEvIY1zYU7uTHFwBVLrRgV8OYVAWN2NWIWuZZ VbmZTmRQDjGAEQUX5GZOroTOI5RNNcddUvvWCxHHmi QH2WILUsvwMuJgKbYGYGINp+Zd5SLI3az1XgTRfqHTPiEE9cwg9DYMxEUmLxY2Y1dJGcF8Q9TIloTw0Q BXLiUQPjNsTgVMGDMRvcEU8TDA1zgwO2TH3MuPKtSBKlGZJmgYGeUMi3P08zsIBnFFanJK9JRVI+Ronny+ Gy1HHDKsJGTgXDQkTuKtGNRJYkSxJ5AqK2OIm8TjN0 MeLM22wSjygvRmDEkaWL4IGQ3mFUAfISJEYQ5GnKOlgF7zieJiFtXcQHTIAkTaY58jjCGsDAUbTLNjAK WmMi0XCYVaF5GwlaCqwFhzriPmEFZaVPWRZA5VYWjxjdJmbLIqcLsaYZ29jPxgVS1GSc4QIqLmXD0ctl 9ErCGxMs8OHVFmUa2LFDTzKOIjZMNjZER6AXUlHuJy VJyqKUWpOLLiMDP8IQThOIHkWB5WScZfGBWkUyT3VEqrASUfDFQifh3HWUPuCAXpOmWbNSLtGDHoCELv TTcoEVPyALViIBF7BZYoLEBlOB6EBcBxRZRqXMUrKHEbCLMbYTNfum7HPXIzAUFyEJSwJcPaNEFyZJMm ELlhTBMeTAA9TaQ4PZPuWITpZK9MYuRfMFNdZVB9Ys UyMMRsGTSjfg6VUJAqQHQyVUGiAUUbIISbUSYpNDqtBWCjAKB7LGK9NRZqONOyUD0PUvPfOOSeDPI6AY djAZAdSJQtff2QPFGtSGOnAUw3WXGhYQOhRRQiDWnpJQIrLYVbNtuiOVHmZOGbUN3LUjKwPFHvTYM2YI yuFZFqCBMydr8RVZQtLWDnLzp1DHGfHVZnDTUjWJjh CJOsAKJ0TJB5JPRqRIOsIA0HVrBnNUXfFMLuPwhwDASgSXVgud0ZWJDvNVNaVTQ1IYLbVGCbTCMzTWru XTOcXTU5BLFqGUNdMEYpJZ0UPsMmNEBxBUH9CMvfEXQeMNSdvh0JKXMbKJYfStT0XBXuCWReBABiFSbv IWOjYVJ4HXQ3UGLjVLFbJS6JOdXfTVEqXWduKglzHQ WhCSJqst0EQMJsEVNlRKOoWtMoCAMqPKLeIGqsFHBbPRB6LkLbLWMxIUKgIV9AGtBpLFYxBqq5PWZdDJ SeVFSslq7ROCKxZSJxXLV0QHGeRCDqDPYjVIqjRCYxDMF2KpF7RMVtFLDjIN4YTcNvMDHpLvYzRcutGC BuFNGfbs3CTRScIDZuJJO0BsMnLKIhVWAhCKjjPNSv CADsKxM7FAMyBKUiKP5ANkSzVVNuRxHjZfhhBBWkDZAvpl5PJAIaYOQqIqNtOwPzKWOoVRFrNJsoHWKw LXEzUrHpXGOlESVfDD4AUzFfDHKrIsC9MTNbFGWqMBQqjx3ErRDmtMxwyw1SAWwOTn1RaJjvUFG9LLgp Xi4clUSiVKBnOTPVEf1FqbAhDQSvWULDAHpzVIYzWN SvBHT2RgGzXfY9COTlZLldFUL0SINsAbCiHTRlNCw2XiY7OuNjPofjHYHiAMZnHFNgEUVhKxOiBkRlRM RhZmMwODc+JN4nIIb+By4Rz3LdpkI0rfKaFZouMno1Wd4SKFCMU8TGRt== ID Date Data Source [id number] 09/14/2020 11:39:44 PM EST [facility] Name Value Range Interpretation Code Description Data Danuta rce(s) Supporting Document(s) ED Provider Note [facility] ZJOERk7nZfJCQjUv00/MRUqrALHhd3YvVMmlHNb7TLlaMARoU5IpGPQ5dH2mKFO2TBdAJwCrJuDkTWN7 lbm [file] U2CxESOfFlEI8AGCt= ID Date Data Source [id number] 09/14/2020 08:12:39 PM [facility] MR BRAIN WITH AND WITHOUT CONTRAST [id number] FINAL RESULTInterpreted by:Zully Hauser DOINDICATION: known pituitary [...] rce(s) Supporting Document(s) ID Date Data Source [id number] 09/14/2020 08:12:39 PM [facility] MR ORBIT WITH AND WITHOUT CONTRAST [id number] FINAL RESULTInterpreted by:Zully Hauser DOINDICATION: known pituitary [...] rce(s) Supporting Document(s) ID Date Data Source [id number] 09/14/2020 06:08:58 PM [facility] Name Value Range Interpretation Code Description Data Danuta rce(s) Supporting Document(s) ED Provider Note [facility] [id number] lbm [file] [id number]/Training Development Specialist [file] [id number] ID Date Data Source [id number] 09/14/2020 02:14:[address] [facility] CT HEAD WITHOUT CONTRAST [id number] RESU LTInterpreted by:Zully Hauser DOINDICATION: headache.TECHNIQUE: Multidetector [...] Name Value Range Interpretation Code Description Data [facility] ID Date Data Source [id number] 09/14/2020 01:24:04 PM [facility] Name Value Range Interpretation Code Description Data Danuta rce(s) Supporting Document(s) Leukocytes [#/volume] in Blood by Automated count 8.6 10*3/uL 4-10 [facility] Erythrocytes [#/volume] in Blood by Automated count 5.26 10*6/uL 4.6- 6.1 [facility] Hemoglobin [Mass/volume] in Blood 15.8 g/dL 13.5-18 [facility] Hematocrit [Volume Fraction] of Blood by Automated count 46.7 % 4 1-53 [facility] Erythrocyte mean corpuscular volume [Entitic volume] by Auto mated count 88.8 fL 80-96 [facility] Erythrocyte mean corpuscular hemoglobin [Entitic mass] by Automated count 30.0 pg 27-33 [facility] Erythrocyte mean corpuscular hemoglobin concentration [Mass/volume] by Automated count 33.8 g/dL 32.0-36.0 [facility] distribution width [Ratio] by Automated count 15.0 % 11.5-14.5 H [facility] Platelets [#/volume] in Blood by Automated count 231 10*3/uL 150-400 [facility] Differential cell count method - Blood [facility] Neutrophils/100 leukocytes in Blood by Automated count 78 % [facility] Lymphocytes/100 leukocytes in Blood by Automated count 17 % [facility] Monocytes/100 leukocytes in Blood by Automated count 5 % [facility] Eosinophils/100 leukocytes in Blood by Automated count 0 % [facility] Basophils/100 leukocytes in Blood by Automated count 0 % [facility] Neutrophils [#/volume] in Blood by Automated count 6.67 10*3/uL 1.8-7 .0 [facility] Lymphocytes [#/volume] in Blood by Automated count 1.41 10*3/uL 1.2-4 .0 [facility] Monocytes [#/volume] in Blood by Automated count 0.43 10*3/uL 0-0.8 [facility] Eosinophils [#/volume] in Blood by Automated count 0.02 10*3/uL 0-0.5 [facility] Basophils [#/volume] in Blood by Automated count 0.03 10*3/uL 0-0.2 [facility] Nucleated erythrocytes/100 leukocytes [Ratio] in Blood by Automated count 0 /100{WBCs} 0-0 [facility] ID Date Data Source [id number] 09/14/2020 01:38:19 PM [facility] Value Range Interpretation Code Description Data Danuta rce(s) Supporting Document(s) Bicarbonate [Moles/volume] in Serum 27 mmol/L 22-29 [facility] Chloride [Moles/volume] in Serum or Plasma 106 mmol/L 98-107 [facility] Creatinine [Mass/volume] in Serum or Plasma 1.01 mg/dL 0.70-1.20 [facility] Glucose [Mass/volume] in Serum or Plasma 100 mg/dL 70-140 [facility] Potassium [Moles/volume] in Serum or Plasma 3.6 mmol/L 3.4-5.1 [facility] Sodium [Moles/volume] in Serum or Plasma 144 mmol/L 136-145 [facility] Urea nitrogen [Mass/volume] in Serum or Plasma 16 mg/dL 8-23 [facility] Anion gap 3 in Serum or Plasma 11 mmol/L 8-15 [facility] Osmolality of Serum or Plasma by calculation 299 mosm/kg 275-300 [facility] Creatinine/Urea nitrogen [Mass Ratio] in Serum or Plasma 16 [facility] Calcium [Mass/volume] in Serum or Plasma 8.8 mg/dL 8.8-10.2 [facility] Glomerular filtration rate/1.73 sq M pre dicted among non-blacks [Volume Rate/Area] in Serum or Plasma by Creatinine-based formula (MDRD) 74 mL/min/1.73m2 >60 [facility] Glomerular filtration rate/1.73 sq M pre dicted among blacks [Volume Rate/Area] in Serum or Plasma by Creatinine-based formula (MDRD) 86 mL/min/1.73m2 >60 [facility] ID Date Data Source [id number] 09/14/2020 04:55:40 PM [facility] Name Value Range Interpretation Code Description Data Danuta rce(s) Supporting Document(s) C reactive protein [Mass/volume] in Serum or Plasma 14.7 mg/L <8.0 H [facility] ID Date Data Source [id number] 09/14/2020 05:11:26 PM [facility] Name Value Range Interpretation Code Description Data Danuta rce(s) Supporting Document(s) Erythrocyte sedimentation rate 16 mm/hr <20 [facility] ID Date Data Source [id number] 09/14/2020 07:21:21 PM [facility] Name Value Range Interpretation Code Description Data Danuta rce(s) Supporting Document(s) Color of Urine [facility] Clarity of Urine [facility] Specific gravity of Urine by Refractometry automated 1.035 1.003 -1.030 [facility] pH of Urine by Automated test strip 5.0 5.0-8.0 [facility] Protein [Mass/volume] in Urine by Automated test strip 100 mg/dL Neg [facility] Glucose [Mass/volume] in Urine by Automated test strip Neg [facility] Ketones [Mass/volume] in Urine by Automated test strip 5 mg/dL Neg [facility] Bilirubin.total [Presence] in Urine by Automated test strip Negative [facility] Hemoglobin [Presence] in Urine by Automated test strip Neg [facility] Leukocyte esterase [Presence] in Urine by Automated test strip Negative [facility] Nitrite [Presence] in Urine by Automated test strip Negati [facility] Leukocytes [#/area] in Urine sediment by Automated count 9 /HPF 0 -5 H [facility] Erythrocytes [#/area] in Urine sediment by Automated count 19 /HPF 0-3 H [facility] Epithelial cells.squamous [#/area] in Urine sediment by Auto mated count 1 /HPF None [facility] Mucus [#/area] in Urine sediment by Microscopy low power field None [facility] Crystals.amorphous [#/area] in Urine sediment by Microscopy high power field None [facility] ID Date Data Source [id number] 09/08/2020 03:19:00 PM EST [facility] ([facility]) Name Value Range Interpretation Code Description Data Danuta rce(s) Supporting Document(s) Prostate specific Ag [Mass/volume] in Serum or Plasma 2.41 ng/mL [facility] This assay was performed on the Siemens Dimension EXL using the B- Galactosidase/CPRG methodology and should not be compared interchangeably with other methods. The PSA should not be used alone as a screening test for the presence or absence of malignant disease. ID Date Data Source [id number] 09/08/2020 03:19:00 PM EST [facility] Name Value Range Interpretation Code Description Data Danuta rce(s) Supporting Document(s) Glucose [Mass/volume] in Serum or Plasma 127 mg/dL 74-99 [facility] ([facility]) 100-125 mg/dL PRE-DIABETES/FASTING >126 mg/dL DIABETES/FASTING Urea nitrogen [Mass/volume] in Serum or Plasma 14 mg/dL 7-18 [facility] ([facility]) Creatinine 1.1 mg/dL 0.6-1.3 [facility] ([facility]) Sodium [Moles/volume] in Serum or Plasma 145 meq/L 136-145 [facility] ([facility]) Potassium [Moles/volume] in Serum or Plasma 3.5 meq/L 3.5-5.1 [facility] Chloride [Moles/volume] in Serum or Plasma 106 meq/L 98-107 [facility] ([facility]) Carbon dioxide, total [Moles/volume] in Serum or Plasma 32 meq/L 21 -32 [facility] Calcium [Mass/volume] in Serum or Plasma 8.4 mg/dL 8.5-10.1 [facility] ([facility]) Alkaline phosphatase isoenzyme [Units/volume] in Serum or Pl asma 113 mg/dL 46-116 [facility] Total Bilirubin 0.4 mg/dL 0.2-1.0 [facility] ([facility]) Aspartate aminotransferase [Enzymatic activity/volume] in Serum or Plasma 15 U/L 15-37 [facility] ([facility] ) Alanine aminotransferase [Enzymatic activity/volume] in Seru m or Plasma 24 U/L 12-78 [facility] ([facility]) Albumin [Mass/volume] in Serum or Plasma 3.4 g/dL 3.4-5.0 [facility] ([facility]) Proteinase 3 Ab [Units/volume] in Serum 6.2 g/dL 6.4-8.2 [facility] ([facility]) A/G Ratio 1.21 CALC 1.00-1.90 [facility] ([facility]) Glomerular filtration rate/1.73 sq M pre dicted among non-blacks [Volume Rate/Area] in Serum or Plasma by Creatinine-based formula (MDRD) Laboratory [facility] Glomerular filtration rate/1.73 sq M pre dicted among blacks [Volume Rate/Area] in Serum or Plasma by Creatinine-based formula (MDRD) Laboratory test result [facility] ([facility]) <content>CHRONIC KIDNEY DISEASE STAGING PER NKF</content>
<content></content>
<content>STAGE I & II GFR >= 60 NORMAL TO MILDLY DECREASED</content>
<content>STAGE III GFR 30-59 MODERATELY DECREASED</content>
<content>STAGE IV GFR 15-29 SEVERELY DECREASED</content>
<content>STAGE V GFR <15 VERY LITTLE GFR LEFT</content>
<content>ESRD GFR <15 ON MODEL MAKER PLASTIC</content>
<content></content> ID Date Data Source [id number] 09/08/2020 03:19:00 PM [facility]) Name Value Range Interpretation Code Description Data Danuta rce(s) Supporting Document(s) Leukocytes [#/volume] in Blood by Automated count 9.5 x10*3/UL 4.1-[address] [facility] ([facility]) Erythrocytes [#/volume] in Blood by Automated count 5.31 x10*6/UL 4.2 0-6.30 [facility] ([facility]) Hemoglobin [Mass/volume] in Blood 15.8 g/dL 12.0-18.0 [facility] ([facility]) Hematocrit [Volume Fraction] of Blood by Automated count 46.9 % 3 7.0-51.0 [facility] ([facility]) MCV 88.2 fL 80.0-97.0 [facility] MCH 29.8 pg 26.0-32.0 [facility] MCHC 33.7 g/dL 31.0-38.0 [facility] Erythrocyte distribution width [Ratio] by Automated count 14.1 % 11.6-13.7 [facility] ([facility]) Platelets [#/volume] in Blood by Automated count 256 x10*3/UL 140-440 [facility] ([facility]) MPV 9.0 FL 7.8-11.0 [facility] Lymph % 15.8 % 10.0-58.5 [facility] Mid % 4.2 % 1.7-9.3 [facility] Neut % 80.0 % 37.0-92.0 [facility] [facility] Lymph # 1.5 x10*3/UL 0.6-4.1 [facility] ([facility]) Mid # 0.4 x10*3/UL 0.1-0.6 [facility] ([facility]) Neut # 7.6 x10*3/UL 2.0-7.8 [facility] ([facility]) ID Date Data Source [id number] 06/09/2020 10:07:00 AM EDT [facility] ([facility] ) Name Value Range Interpretation Code Description Data Danuta rce(s) Supporting Document(s) Creatinine For GFR 1.24 mg/dL 0.70-1.30 [facility] ([facility] ) Blood Urea Nitrogen 12 mg/dL 7-18 [facility] ([facility] ) Glucose, Fasting 80 mg/dL 70-100 [facility] ([facility] ) Glomerular Filtration Rate Laboratory [facility]) <content>Units are mL/min/1.73 m2</content>
<content></content>
<content>Chronic Kidney Disease Staging per NKF:</content>
<content></content>
<content>Stage I & II GFR >=60 Normal to Mildly Decreased</content>
<content>Stage III GFR 30- 59 Moderately Decreased</content>
<content>Stage IV GFR 15-29 Severely Decreased</content>
<content>Stage V GFR <15 Very Little GFR Left</content>
<content>ESRD GFR <15 on MODEL MAKER PLASTIC</content>
<content></content> Sodium Level 142 meq/L 136-145 [facility] Carbon Dioxide Level 30 meq/L 21-32 [facility]) Potassium Serum 4.5 meq/L 3.5-5.1 [facility] ([facility]) Chloride Level 107 meq/L 98-107 [facility] Calcium Level 9.0 mg/dL 8.8-10.2 [facility]) Anion Gap 5 meq/L 8-16 [facility] Procedure Social History Code Duration Value Status Description Data Source(s ) Smoking 04/09/2021 12:00:00 AM EDT Patient has never smoked co mpleted Patient has never smoked [facility] ([facility]) Smoking 03/20/2021 04:05:01 PM EDT Never smoked tobacco (findi ng) completed Never smoked tobacco (finding) [facility] (Malik Guevara [facility]) Alcohol intake 12/16/2020 12:00:00 AM EST Current non-d manoj of alcohol (finding) completed Current non-drinker of alcohol (finding) [facility] Alcohol intake 09/18/2020 12:00:00 AM EST Current non-d manoj of alcohol (finding) completed Current non-drinker of alcohol (finding) [facility] Vital Signs ID Date Data Source [id number] Name Value Range Interpretation Code Description Data Source(s) Systolic blood pressure 128 mm[Hg] 128 mm[Hg] M [facility] ([facility]) Diastolic blood pressure 89 mm[Hg] 89 mm[Hg] [facility] ([facility]) Heart rate 72 /min 72 /min [facility] ([facility]) Body height 64 [in_i] 64 [in_i] [facility] ([facility]) 5'4" Body weight 194.00 [lb_av] 194.00 [lb_av] [facility] ([facility]) Body mass index (BMI) [Ratio] 33.3 kg/m2 33.3 k g/m2 [facility] ([facility]) Body weight 184.00 [lb_av] 184.00 [lb_av] [facility] ([facility]) Systolic blood pressure 136 mm[Hg] 136 mm[Hg] M [facility] ([facility]) Diastolic blood pressure 86 mm[Hg] 86 mm[Hg] [facility] ([facility]) Heart rate 104 /min 104 /min [facility] ([facility]) Body height 64 [in_i] 64 [in_i] [facility] ([facility]) 5'4" Body mass index (BMI) [Ratio] 31.6 kg/m2 31.6 k g/m2 [facility] ([facility]) Body weight 180.00 [lb_av] 180.00 [lb_av] [facility] ([facility]) Respiratory rate 18 /min 18 /min [facility] ( [facility]) Systolic blood pressure 136 mm[Hg] 136 mm[Hg] M [facility] ([facility]) Diastolic blood pressure 80 mm[Hg] 80 mm[Hg] [facility] ([facility] ) Heart rate 112 /min 112 /min [facility] ([facility]) Body temperature 96.4 [degF] 96.4 [degF] [facility] ([facility] Body height 64.5 [in_i] 64.5 [in_i] [facility] ([facility]) 5'4.50" Body weight 183.25 [lb_av] 183.25 [lb_av] [facility] ([facility] ) Body mass index (BMI) [Ratio] 31.0 kg/m2 31.0 k g/m2 [facility] ([facility] ) Oxygen saturation in Arterial blood by Pulse oximetry 98 % 98 % [facility] ([facility]) Diastolic blood pressure 80 mm[Hg] 80 mm[Hg] [facility] ([facility]) Body height 64 [in_i] 64 [in_i] [facility] ([facility]) 5'4" Body weight 185.00 [lb_av] 185.00 [lb_av] [facility] ([facility]) Body mass index (BMI) [Ratio] 31.8 kg/m2 31.8 k g/m2 [facility] ([facility]) Systolic blood pressure 126 mm[Hg] 126 mm[Hg] [facility] Heart rate 78 /min 78 /min [facility] ([facility]) Diastolic blood pressure 83 mm[Hg] 83 mm[Hg] [facility] ([facility]) per home readings Heart rate 77 /min 77 /min [facility] ([facility]) Systolic blood pressure 127 mm[Hg] 127 mm[Hg] M [facility] ([facility]) per home readings Body weight 195.00 [lb_av] 195.00 [lb_av] [facility] ([facility]) Body temperature 98.9 [degF] 98.9 [degF] [facility] ([facility]) Respiratory rate 16 /min 16 /min [facility] ( [facility]) Systolic blood pressure 150 mm[Hg] 150 mm[Hg] [facility] Diastolic blood pressure 90 mm[Hg] 90 mm[Hg] [facility] ([facility]) Systolic blood pressure 120 mm[Hg] 120 mm[Hg] [facility] Diastolic blood pressure 80 mm[Hg] 80 mm[Hg] [facility] Heart rate 80 /min 80 /min [facility] ([facility]) Body height 64 [in_i] 64 [in_i] [facility] 5'4" Body weight 198.00 [lb_av] 198.00 [lb_av] [facility] ([facility]) Oxygen saturation in Arterial blood by Pulse oximetry 97 % 97 % [facility] Body mass index (BMI) [Ratio] 34.0 kg/m2 34.0 k g/m2 [facility] ([facility]) ID Date Data Source [id number] 10/24/2020 08:53:02 AM [facility] Name Value Range Interpretation Code Description Data Source(s) WEIGHT RECORDED 195 lb 195 lb [facility] ID Date Data Source [id number] 09/19/2020 05:43:12 AM [facility] Name Value Range Interpretation Code Description Data Source(s) WEIGHT RECORDED 195 lb 195 lb [facility] Body height Measured 64 in 64 in [facility] Patient Treatment Plan of Care Planned Activity Planned Date Details Description Data Source (s) Ondansetron 4 MG Oral Tablet 09/14/2020 12:55:27 PM [facility] Oxycodone Hydrochloride 5 MG Oral Tablet 09/14/2020 12:00:00 AM [facility]
[2021-08-04] MEDS ORDERED: NS 1,000 ML IV ONE ×2 (13:30→15:20)
[2021-08-04] MEDS ORDERED: DEXA4TA (13:51)
[2021-08-04] MEDS ORDERED: OXYC-517 (13:51)
[2021-08-04] MEDS ORDERED: TEMO20CA21 (13:51)
[2021-08-04 14:07] LABS: BASO % 0.2 % (0.0-1.0); HEMATOCRIT 46.1 % (42.0-52.0); HEMOGLOBIN 15.1 g/dl (13.5-17.5); LYMPH # 0.8 10^3/uL (1.5-5.0); LYMPH % 6.8 % (24.0-44.0); MEAN CORPUSCULAR HEMOGLOBIN 27.9 pg (27.0-33.0); MEAN CORPUSCULAR HGB CONC 32.8 g/dl (32.0-36.5); MEAN CORPUSCULAR VOLUME 85.2 fl (80.0-96.0); MONO # 0.5 10^3/uL (0.0-0.8); MONO % 4.2 % (2.0-8.0); NEUTROPHILS # 10.6 10^3/uL (1.5-8.5); NEUTROPHILS % 88.1 % (36.0-66.0); PLATELET COUNT, AUTOMATED 378 10^3/uL (150-450); RED BLOOD COUNT 5.41 10^6/uL (4.30-6.10); WHITE BLOOD COUNT 12.1 10^3/uL (4.0-10.0)
[2021-08-04 14:31] LABS: OSMOLALITY SERUM 289 MOSM/KG (280-301)
[2021-08-04 15:00] LABS: ALBUMIN 3.2 GM/DL (3.2-5.2); ALT/SGPT 42 U/L (12-78); BILIRUBIN,DIRECT 0.2 MG/DL (0.0-0.2); BILIRUBIN,TOTAL 0.4 MG/DL (0.2-1.0); BLOOD UREA NITROGEN 31 MG/DL (7-18); CALCIUM LEVEL 8.7 MG/DL (8.8-10.2); CARBON DIOXIDE LEVEL 28 MEQ/L (21-32); CHLORIDE LEVEL 97 MEQ/L (98-107); CK-MB VALUE MASS 2.1 NG/ML (<3.6); CPK CREATINE PHOSPHOKINASE 63 U/L (39-308); CREATININE FOR GFR 1.15 MG/DL (0.70-1.30); FREE T4 0.79 NG/DL (0.76-1.46); GLOMERULAR FILTRATION RATE > 60.0 (>42); GLUCOSE, FASTING 152 MG/DL (70-100); MB/CK RELATIVE INDEX 3.33 (< OR =4); POTASSIUM SERUM 4.5 MEQ/L (3.5-5.1); SODIUM LEVEL 132 MEQ/L (136-145); THYROID STIMULATING HORMONE < 0.005 uIU/ML (0.358-3.740); TOTAL PROTEIN 6.4 GM/DL (6.4-8.2); TROPONIN I < 0.02 NG/ML (< 0.10)
--- OUTSIDE RECORDS SUMMARY | 2021-08-04 15:23 | CCD ---
Author Author [facility] Organization [facility] Address Unknown Phone Unavailable Care Team Providers Care Sports Editor Name Role Phone Josep Rendon MD Unavailable [...] Unavailable White, F Lino MD Unavailable Unavailable White F Lino MD Unavailable Unavailable White, F Lino MD Unavailable Unavailable White, F Lino MD Unavailable Unavailable White, F Lino Unavailable Unavailable White, F Lino MD Unavailable Unavailable Justice F Lino Unavailable Unavailable [...] Unavailable KEYONA, Светлана NAVARRO MD Unavailable Unavailable KEOYNA, A MELANIE DOWLING Unavailable Unavailable KEYONA, A [...] Unavailable KEYONA, Светлана NAVARRO MD Unavailable Unavailable KEYNOA, Светлана NAVARRO MD Unavailable Unavailable KEYONA, Светлана NAVARRO MD Unavailable Unavailable KEOYNA, Светлана NAVARRO MD Unavailable Unavailable KEYONA, Светлана NAVARRO MD Unavailable Unavailable KEYONA, Светлана NAVAROR MD Unavailable Unavailable KEYONA, Светлана NAVARRO MD [...] Unavailable Zoe, A Manju Unavailable Unavailable Josep Kraemr MD Unavailable Unavailable Josep Kramer MD Unavailable Unavailable Josep Kramer MD Unavailable Unavailable Josep Kramer MD Unavailable Unavailable Josep Kramer MD Unavailable Unavailable Josep Kramer MD Unavailable Unavailable Josep Kramer MD Unavailable Unavailable Josep Kramer MD Unavailable Unavailable Josep Kramer MD Unavailable Unavailable Josep Kramer MD Unavailable Unavailable MohanawiJosep wayne MD Unavailable Unavailable Josep Kramer MD Unavailable Unavailable Jospe Kramer MD Unavailable Unavailable Josep Kramer MD [...] Pam DOWLING Unavailable Unavailable Dumont, A Phyl VISUAL MANAGER-BC Unavailable Unavailable Dumont, A Phyl VISUAL MANAGER-BC Unavailable Unavailable Dumont, A Phyl VISUAL MANAGER-BC Unavailable Unavailable Dumont, A Phyl VISUAL MANAGER-BC Unavailable Unavailable Dumont, A Phyl VISUAL MANAGER-BC Unavailable Unavailable Dumont, A Phyl VISUAL MANAGER-BC Unavailable Unavailable Dumont, A Phyl VISUAL MANAGER-BC Unavailable Unavailable Dumont, A Phyl VISUAL MANAGER-BC Unavailable Unavailable Dumont, A Phyl VISUAL MANAGER-BC Unavailable Unavailable Dumont, A Phyl VISUAL MANAGER-BC Unavailable Unavailable Dumont, A Phyl VISUAL MANAGER-BC Unavailable Unavailable Dumont, A Phyl VISUAL MANAGER-BC Unavailable Unavailable Dumont, A Phyl VISUAL MANAGER-BC Unavailable Unavailable Dumont, A Phyl VISUAL MANAGER-BC Unavailable Unavailable Dumont, A Phyl VISUAL MANAGER-BC Unavailable Unavailable Dumont, A Phyl VISUAL MANAGER-BC Unavailable Unavailable Dumont, A Phyl VISUAL MANAGER-BC Unavailable Unavailable Dumont, A Phyl VISUAL MANAGER-BC Unavailable Unavailable Dumont, A Phyl VISUAL MANAGER-BC Unavailable Unavailable Dumont, A Phyl VISUAL MANAGER-BC Unavailable Unavailable Dumont, A Phyl VISUAL MANAGER-BC Unavailable Unavailable Dumont, A Phyl VISUAL MANAGER-BC Unavailable Unavailable Dumont, A Phyl VISUAL MANAGER-BC Unavailable Unavailable Dumont, A Phyl VISUAL MANAGER-BC Unavailable Unavailable Dumont, A Phyl VISUAL MANAGER-BC Unavailable Unavailable Dumont, A Phyl VISUAL MANAGER-BC Unavailable Unavailable Dumont, A Phyl VISUAL MANAGER-BC Unavailable Unavailable Dumont, A Phyl VISUAL MANAGER-BC Unavailable Unavailable Dumont, A Phyl VISUAL MANAGER-BC Unavailable Unavailable Dumont, A Phyl VISUAL MANAGER-BC Unavailable Unavailable Dumont, A Phyl VISUAL MANAGER-BC Unavailable Unavailable Dumont, A Phyl VISUAL MANAGER-BC Unavailable Unavailable Nerstrand, A Juanjo DOWLING Unavailable Unavailable Nerstrand, A Juanjo DOWLING Unavailable Unavailable Nerstrand, A Juanjo DOWLING Unavailable Unavailable Nerstrand, Светлана Geiger MD Unavailable Unavailable Nerstrand, Светлана Geiger MD Unavailable Unavailable Nerstrand, Светлана Geiger MD Unavailable Unavailable Yudelka, A Juanjo DOWLING Unavailable Unavailable Yudelka, Светлана Geiger MD Unavailable Unavailable Yudelka, A Juanjo DOWLING Unavailable Unavailable Yudelka, A Juanjo DOWLING Unavailable Unavailable Yudelka, Светлана Geiger MD Unavailable Unavailable Nerstrand, Светлана Geiger MD Unavailable Unavailable Yudelka, Светлана Geiger MD Unavailable Unavailable Yudelka, Светлана Geiger MD Unavailable Unavailable Nerstrand, Светлана Geiger MD Unavailable Unavailable Nerstrand, Светлана Geiger MD Unavailable Unavailable Nerstrand, Светлана Geiger MD Unavailable Unavailable Nerstrand, Светлана Geiger MD Unavailable Unavailable Yudelka, Светлана Geiger MD Unavailable Unavailable Nerstrand, Светлана Geiger MD Unavailable Unavailable Nerstrand, Светлана Geiger MD Unavailable Unavailable Yudelka, Светлана Geiger MD Unavailable Unavailable Nerstrand, Светлана Geiger MD Unavailable Unavailable Yudelka, Светлана Geiger MD Unavailable Unavailable Yudelka, Светлана Geiger MD Unavailable Unavailable Nerstrand, Светлана Geiger MD Unavailable Unavailable Yudelka, Светлана Geiger MD Unavailable Unavailable Yudelka, Светлана Geiger MD Unavailable Unavailable Nerstrand, Светлана Geiger MD Unavailable Unavailable Yudelka, Светлана Geiger MD Unavailable Unavailable Yudelka, Светлана Geiger MD Unavailable Unavailable Nerstrand, Светлана Geiger MD Unavailable Unavailable Nerstrand, Светлана Geiger MD Unavailable Unavailable Nerstrand, Светлана Geiger MD Unavailable Unavailable Nerstrand, Светлана Geiger MD Unavailable Unavailable Nerstrand, Светлана Geiger MD Unavailable Unavailable Yudelka, Светлана Geiger MD Unavailable Unavailable Rayshawn DUNN Unavailable Unavailable Rayshawn CAGE MD Unavailable Unavailable Rayshawn CAGE MD Unavailable Unavailable Rayshawn CAGE MD Unavailable Unavailable Rayshawn CAGE MD Unavailable Unavailable NILES, S RISSHASHI DOWLING Unavailable Unavailable NILES, S CUCA DOWLING Unavailable Unavailable Re-disclosure Warning [...] is protected by Article 27-F of the [facility] Public Health law. If you continue you may have access to information: Regarding HIV / AIDS; Provided by facilities licensed or operated by the [facility] Office of Mental Health; or Provided by the [facility] Office for People With Developmental Disabilities. If such information is present, then the following [facility] mandated warning applies: This information has been [...] law may result in a fine or retirement sentence or both. A general authorization for the release of medical or other information is NOT sufficient authorization for further disc losure. Allergies and Adverse Reactions Type Description Substance Reaction Status Data Source(s ) Propensity to adverse reactions AMOXICILLIN Amoxicillin Rash [facility] Family History Family Member Name Family Member Gender Family Member Status Date o f Status Description Data Source(s) Unknown Male Problem [facility] ([facility]) () Unknown Male Problem [facility] ) () Encounters Encounter Providers Location Date Indications Data Source(s ) Outpatient Attender: Lino Zavala 05/04 02:00:00 PM EDT [facility] ([facility] ) Outpatient Attender: Rai Dumont [facility] Main Office 0 04/14/2021 02:00:00 PM EDT [facility] ([facility] Outpatient Attender: Pam Veronica MD Physical Therapy 04/09 02:15:00 PM EDT [facility] ([facility]) Outpatient Attender: Lino Zavala 01/26 08:00:00 AM EDT [facility] ([facility] ) Outpatient Referrer: Manju Enriquez 12/16/2020 12:00: 00 AM EST Benign neoplasm of pituitary gland [facility] Benign neoplasm of pituitary gland Outpatient Attender: Lino Zavala 11/04 12:00:00 PM EST [facility] ([facility] ) Outpatient Attender: Pam Veronica MD Physical Therapy 09/30 02:00:00 PM EST [facility] ([facility]) Outpatient Attender: Juanjo Jha MD 09/25/2020 12:00:0 0 [facility] Referrer: HAMILTON DUNN 09/22/2020 12:00:00 AM E [facility] Outpatient 09/19/2020 12:00:00 [facility] Outpatient Attender: Juanjo Jha MDReferrer: SA SABINO RAND MD 07A-RONCACTR 09/18/2020 12:00:00 AM EST - 09/18/2020 02:33:14 PM EST f/u [facility] f/u Outpatient 09/16/2020 12:00:00 [facility] Outpatient 09/15/2020 12:00:00 [facility] Emergency Attender: CUCA CAGE MDAttender: Sreekanth gavin MD 07A-ADULTERM 09/14/2020 12:00:00 AM EST - 09/14/2020 11:02:00 PM EST Other specified disorders of brain [facility] Other specified disorders of brain Patient discharged. Outpatient Attender: Lino Zavala 09/08 01:30:00 PM EST [facility] ([facility] ) Outpatient 06/17/2020 12:00:00 AM [facility] Medications Medication Brand Name Start Date [...] 8 HOURS NEEDED FOR NAUSEA SOLD: 06/17/2021 [facility] 100 mg 06/12/2021 12:00:00 AM EDT [...] DS 04/09/2021 12:00:00 AM EDT active [facility] ([facility]) 1 mg 04/03/2021 12:00:00 [...] 03/22/2021 12:00:00 AM EDT ORAL active [facility] ([facility]) 20 mEq 03/21/2021 12:00:00 [...] 03/20/2021 12:00:00 AM EDT ORAL active [facility] ([facility]) 20 mg 03/19/2021 12:00:00 AM EDT [...] 12:00:0 0 AM EDT ORAL active [facility] ([facility]) 1 mg 01/20/2021 12:00:00 AM [...] 12:00:0 0 AM EDT ORAL completed [facility] ([facility]) 4 mg 01/05/2021 12:00:00 AM [...] Drugs gadobutrol (GADAVIST) contrast injection 4 mL [id number] 04:15:00 PM EST 4 mL Intravenous completed 4 mL, Tavo pugh, 1 TIME IMAGING, [facility] 12/16/20 at 1615, For 1 dose, Imaging Protocol
Do not mix or administer in the same IV line with other medications.
[facility] Medication administered onsite 25 mg 12/16/2020 12:00:00 [...] 12:00:00 A M EST active [facility] 5 mg 11/21/2020 12:00:00 [...] :00 AM EST active [facility] ([facility]) 4 mg 10/29/2020 12:00:00 AM [...] WHITING DAILY DOSE = 2 SOLD: 10/28/2020 [facility] Dexamethasone 4 MG Oral Tablet [Decadron] Decadron 10/28/2020 1 2:00:00 AM EST ORAL active [facility] ([facility]) 5 mg 10/28/2020 12:00:00 AM [...] Once, 09/14/20 at 1999, For [address] [facility] Medication administered onsite sodium chloride 0.9 % bolus 1,000 mL 3547-8534-27 09/14/2020 08:00: 00 PM EST 1000 mL Intravenous completed 1,000 mL , Intravenous, Once, 09/14/20 at 1999, For [address] [facility] Medication administered onsite diphenhydrAMINE (BENADRYL) injection 25 mg 84912-191-94 09/14/2020 08:00:00 PM EST 25 mg Intravenous completed 25 mg, Intravenous, Once, 09/14/20 at 1999, For [address] [facility] Medication administered onsite 2 ML Metoclopramide 5 MG/ML Prefilled Sy ringe metoclopramide (REGLAN) injection 10 mg metoclopramide (REGLAN) injection 10 mg 09/14/2020 08:00:[address] 10 mg Intravenous completed 10 mg, I ntravenous, Once, Allison 09/14/20 at 2000, For [address] [facility] Medication administered onsite 1 ML Ketorolac Tromethamine 30 MG/ML Car tridge ketorolac (TORADOL) 30 MG/ML injection 15 mg ketorolac (TORADOL) 30 MG/ML injection 15 mg 0 07:45:00 PM EST 15 mg Intravenous completed 15 mg, Intravenous, Once, Allison 09/14/20 at 2000, For [address] [facility] Medication administered onsite gadobutrol (GADAVIST) contrast injection 8.5 mL [id number] 09/14/2020 05:15:00 PM EST 0.1 mL/kg Intravenous completed 8.5 mL (rounded from 8.85 mL = 0.1 mL/kg 88.5 kg), Intravenous, 1 TIME IMAGING, Allison 09/14/20 at 1715, For 1 dose
Do not mix or administer in the same IV line with other medications.
[facility] Medication administered onsite morphine sulfate (PF) injection 6 mg 0196-2983-35 09/14/2020 03:30: 00 PM EST 6 mg Intravenous completed 6 mg, In travenous, Once, Allison 09/14/20 at 1530, For [address] [facility] Medication administered onsite NaCl infusion 0.9 % 6769-0944-76 09/14/2020 03:15:00 PM EST Intravenous active at 100 mL/hr, Intrav enous, Continuous, Starting 09/14/20 at 1515, For [address] [facility] Medication administered onsite ondansetron (ZOFRAN) injection 4 mg 44435-242-93 09/14/2020 01:15:0 0 PM EST 4 mg Given by IV completed 4 mg, Gi sebastian by IV, Once, Allison 09/14/20 at 1315, For [address] [facility] Medication administered onsite morphine sulfate (PF) injection 4 mg 9998-3012-15 09/14/2020 01:00: 00 PM EST 4 mg Intravenous completed 4 mg, In travenous, Once, Allison 09/14/20 at 1300, For [address] [facility] Medication administered onsite Ondansetron 4 MG Oral Tablet ondansetron (ZOFRAN) tabl et 4 mg ondansetron (ZOFRAN) tablet 4 mg 09/14/2020 12:55:27 PM EST 4 mg Oral active 4 mg, Oral, Every 8 hours PRN, Nausea, Vomiting, Starting 09/14/20 at 1255, For [address] [facility] Medication administered onsite Oxycodone Hydrochloride 5 MG Oral Tablet oxyCODONE HCl 5 MG Oral Tablet (ROXICODONE) oxyCODONE HCl 5 MG Oral Tablet (ROXICODONE) 09/14/2020 12:00:00 AM EST 10 mg Oral completed Take 2 tablets by mouth every 6 (six) hours as needed for Pain for up to 3 days, Max Daily Dose: [address] [facility] 10 mg 09/09/2020 12:00:00 AM EST tablet [...] TABLET BY MOUTH EVERY DAY SOLD: 02/09/2021 [facility] atorvastatin 20 MG Oral Tablet [...] type / Coverage type Policy ID Covered libertarian ID Covered libertarian's relationship to pearson Policy Pearson Plan Information MVP (pr) Commercial [id number] Self MVP (pr) Commercial [id number] Self [id number] MVP [id number] Self [id number] [employer] Healthcare Commercial [id number] Self [id number] MVP Healthcare Commercial [id number] Self [facility] [id number] [place] (pr) Medigap Part B [id number] Family Dependent [id number] [employer] (pr) Commercial [id number] Family Dependent [place] Ppo Medigap Part B [id number] Family Dependent [place] (pr) Medigap Part B [id number] Family Dependent [id number] [employer] (pr) Commercial [id number] Family Dependent [id number] [place] Ppo Medigap Part B [id number] .[id number] Family Dependent [id number] [place] Ppo Medigap Part B [id number] .[id number] Family Dependent [id number] [employer] (pr) Commercial [id number] [id number] Family Dependent [id number] [place] Ppo Medigap Part B [id number] .[id number] Family Dependent [id number] [place] (pr) Medigap Part B [id number] .[id number] Family Dependent [id number] [place]/Umr (Old) Medigap Part B [id number] Family Dependent [id number] [place] (pr) Medigap Part B [id number] Family Dependent [id number] [place] (pr) Medigap Part B [id number] .[id number] Family Dependent [id number] Umr [place] Ppo Medigap Part B [id number] [id number] Family Dependent [id number] [place] (pr) Commercial [id number] [id number] Family Dependent [id number] POMCO U [id number] Spouse [id number] POMCO [id number] WI2 [id number] UMR [facility] [id number] WI2 [id number] UMR U [id number] Spouse [id number] MEDICARE A [id number] Self [id number] [id number] UMR U [id number] Spouse [id number] UMR U [id number] Spouse [id number] Umr (pr) Commercial [id number] Self [id number] UMR U [id number] Spouse [id number] Umr (pr) Commercial [id number] Self [id number] Umr ([facility] Commercial [id number] Family Dependent [id number] Umr (pr) Commercial [id number] Self [id number] Umr (pr) Commercial [id number] Self [id number] UMR [facility] [id number] [facility] [id number] Umr (pr) Commercial [id number] Self [id number] MEDICARE A Self O [id number] S [id number] 300 MEDICARE [id number] SP [id number] MEDICARE [id number] SP [id number] A UMR O [id number] S [id number] BS [place] Medigap Part B [id number] Self [id number] BS [place] Medigap Part B [id number] Self [id number] BS [place] Medigap Part B [id number] Self [id number] BS [place] Medigap Part B [id number] Self S [id number] BS [place] Medigap Part B [id number] Self S [id number] BS [place] Medigap Part B [id number] Self S [id number] [facility] O [id number] P [id number] MEDICARE [id number] SP [id number] A BS [place] Medigap Part B [id number] Self S [id number] [facility] Health Maintenance Organization ([facility]) [id number] Self [id number] [place] Medigap Part B [id number] Self S [id number] BS [place] Medigap Part B [id number] Self OTHER WORKERS COMPENSATION [id number] SP [id number] [facility] P [id number] S [id number] [facility] O [id number] S [id number] 300 Problems, Conditions, and Diagnoses Code Display Name Description Problem Type Effective Dates Data Source(s) f/u f/u Diagnosis 09/18/2020 07:36:01 AM [facility] G93.89 Other specified disorders of brain Other specifi ed disorders of brain Diagnosis 09/14/2020 11:54:00 AM [facility] Headache;cancer patient Headache;cancer patient Diagno sis 09/14/2020 11:54:00 AM [facility] Surgeries/Procedures Procedure Description Date Indications Data Source(s) OFFICE OUTPATIENT VISIT 25 MINUTES 05/04/2021 12:00:00 AM EDT [facility]ER[facility] ([facility]) OFFICE OUTPATIENT VISIT 25 MINUTES 04/14/2021 12:00:00 AM EDT [facility] ([facility]) OFFICE OUTPATIENT VISIT 25 MINUTES 04/09/2021 12:00:00 AM EDT [facility] ([facility]) OFFICE OUTPATIENT VISIT 25 MINUTES 01/26/2021 12:00:00 AM EDT MEDJERMAN ([facility]) MRI ORBIT FACE & NCK W/O &W/CONTRAST MATRL <td>MR ORBI T WITH AND WITHOUT CONTRAST [id number]</td><td>Routine</td><td>09/14/2020 6:30 PM EST</td><td></td><td> </td> 09/14/2020 06:30:00 PM [facility] MRI BRAIN BRAIN STEM W/O &W/CONTRAST MATERIAL <td>MR B RAIN WITH AND WITHOUT CONTRAST [id number]</td><td>Routine</td><td>09/14/2020 6:25 PM EST</td><td></td><td> </td> 09/14/2020 06:25:[address] [facility] [address] HEAD/BRAIN W/O CONTRAST MATERIAL <td>CT HEAD WITHOU T CONTRAST [id number]</td><td>STAT</td><td>09/14/2020 1:45 PM EST</td><td></td><td> </td> 09/14/2020 01:45:21 PM [facility] SEDIMENTATION RATE RBC AUTOMATED <td>SEDIMENTATION RAT E, AUTOMATED</td><td>Routine</td><td>09/14/2020 12:55 PM EST</td><td></td><td> </td> 09/14/2020 12:55:00 PM [facility] BLOOD COUNT COMPLETE AUTO&AUTO DIFRNTL WBC COUNT <td>C BC AND DIFFERENTIAL</td><td>Routine</td><td>09/14/2020 12:55 PM EST</td><td></td><td> </td> 09/14/2020 12:55:00 PM [facility] C-REACTIVE PROTEIN <td>INFLAMMATORY C-REACTIVE PROTEIN (CRP)</td><td>Routine</td><td>09/14/2020 12:55 PM EST</td><td></td><td> </td> 09/14/2020 12:55:00 PM [facility] BASIC METABOLIC PANEL CALCIUM TOTAL <td>BASIC METABOLI C PANEL</td><td>STAT</td><td>09/14/2020 12:55 PM EST</td><td></td><td> </td> 09/14/2020 12:55:00 PM [facility] URNLS DIP STICK/TABLET REAGENT AUTO MICROSCOPY <td>URI NALYSIS WITH MICROSCOPIC</td><td>STAT</td><td>09/14/2020 12:34 PM EST</td><td></td><td> </td> 09/14/2020 12:34:00 PM [facility] Diabetic Retinal Eye Exam 09/14/2020 12:00:00 AM EST [facility] ([facility]) Results ID Date Data Source [id number] 06/29/2021 03:42:00 PM EDT [facility] ([facility]) Name Value Range Interpretation Code Description Data Danuta rce(s) Supporting Document(s) Glucose, Fasting 162 mg/dL 70-100 [facility] ([facility]) Glomerular Filtration Rate Laboratory test result [facility] ([facility]) <content>Units are mL/min/1.73 m2</content>
<content></content>
<content>Chronic Kidney Disease Staging per NKF:</content>
<content></content>
<content>Stage I & II GFR >=60 Normal to Mildly Decreased</content>
<content>Stage III GFR 30- 59 Moderately Decreased</content>
<content>Stage IV GFR 15-29 Severely Decreased</content>
<content>Stage V GFR <15 Very Little GFR Left</content>
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
<content></content> Blood Urea Nitrogen 10 mg/dL 7-18 [facility] ([facility] Creatinine For GFR 1.06 mg/dL 0.70-1.30 [facility] ([facility]) Sodium Level 142 meq/L 136-145 [facility] ([facility] Potassium Serum 4.2 meq/L 3.5-5.1 [facility] ([facility]) Chloride Level 108 meq/L 98-107 [facility] ([facility] Carbon Dioxide Level 28 meq/L 21-32 [facility] ([facility]) Anion Gap 6 meq/L 8-16 [facility] Calcium Level 8.6 mg/dL 8.8-10.2 [facility] ([facility]) ID Date Data Source [id number] 06/16/2021 03:20:00 PM EDT [facility] ([facility]) Name Value Range Interpretation Code Description Data Danuta rce(s) Supporting Document(s) White Blood Count 10.8 10 4.0-10.0 [facility] ([facility]) Hemoglobin 15.9 g/dL 13.5-17.5 [facility] ([facility]) Red Blood Count 5.44 10 4.30-6.10 [facility] ([facility]) Mean Corpuscular Volume 92.5 fl 80.0-96.0 [facility] ([facility]) Hematocrit 50.3 % 42.0-52.0 [facility] ([facility]) Mean Corpuscular Hemoglobin 29.2 pg 27.0-33.0 AR DENT ([facility]) Platelet Count, Automated 280 10 150-450 MEDE NT ([facility]) Red Cell Distribution Width 15.7 % 11.5-14.5 ME DENT ([facility]) Mean Corpuscular HGB Conc 31.6 g/dL 32.0-36.5 MEDE NT ([facility]) Lymph % 17.5 % 24.0-44.0 [facility] Elk % 5.7 % 2.0-8.0 [facility] Neutrophils % 70.6 % 36.0-66.0 [facility] ([facility]) Immature Granulocyte % 4.8 % 0-3.0 [facility] ([facility]) Eos % 0.1 % 0.0-3.0 [facility] Baso % 1.3 % 0.0-1.0 [facility] Lymph # 1.9 10 1.5-5.0 [facility] Neutrophils # 7.6 10 1.5-8.5 [facility] ([facility]) Nucleated Red Blood Cell % 0.0 % 0-0 MED ENT ([facility]) Elk # 0.6 10 0.0-0.8 [facility] Baso # 0.1 10 0.0-0.2 [facility] Eos # 0.0 10 0.0-0.5 [facility] ID Date Data Source [id number] 06/16/2021 03:20:00 PM EDT [facility] ([facility]) Name Value Range Interpretation Code Description Data Danuta rce(s) Supporting Document(s) Magnesium [Moles/volume] in Serum or Plasma 2.3 mg/dL 1.8-2.4 [facility] ([facility]) Thyroxine (T4) free [Mass/volume] in Serum or Plasma 0.84 ng/dL 0.76- 1.46 [facility] ([facility] [facility]) ID Date Data Source [id number] 06/16/2021 03:20:00 PM EDT [facility] ([facility]) Name Value Range Interpretation Code Description Data Danuta rce(s) Supporting Document(s) Blood Urea Nitrogen 13 mg/dL 7-18 [facility] ([facility]) Glucose, Fasting 116 mg/dL 70-100 [facility] ([facility]) Creatinine For GFR 1.11 mg/dL 0.70-1.30 [facility] ([facility]) Glomerular Filtration Rate Laboratory test [facility] ([facility]) <content>Units are mL/min/1.73 m2</content>
<content></content>
<content>Chronic Kidney Disease Staging per NKF:</content>
<content></content>
<content>Stage I & II GFR >=60 Normal to Mildly Decreased</content>
<content>Stage III GFR 30- 59 Moderately Decreased</content>
<content>Stage IV GFR 15-29 Severely Decreased</content>
<content>Stage V GFR <15 Very Little GFR Left</content>
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
<content></content> Sodium Level 138 meq/L 136-145 [facility] ([facility]) Chloride Level 105 meq/L 98-107 [facility] ([facility]) Potassium Serum 5.0 meq/L 3.5-5.1 [facility] ([facility]) Anion Gap 6 meq/L 8-16 [facility] (Formerly named [facility]) Calcium Level 9.5 mg/dL 8.8-10.2 [facility] ([facility]) Carbon Dioxide Level 27 meq/L 21-32 [facility] ([facility]) Ast/Sgot 26 U/L 7-37 [facility]) Alt/SGPT 59 U/L 12-78 [facility] ([facility]) Alkaline Phosphatase 107 U/L 45-117 [facility] ([facility]) Bilirubin,Total 0.4 mg/dL 0.2-1.0 [facility] ([facility]) Total Protein 6.6 GM/DL 6.4-8.2 [facility] ([facility]) Albumin 3.3 GM/DL 3.2-5.2 [facility] ([facility]) Albumin/Globulin Ratio 1.0 [facility] ([facility]) ID Date Data Source [id number] 06/02/2021 11:05:00 AM EDT [facility] ([facility]) Name Value Range Interpretation Code Description Data Danuta rce(s) Supporting Document(s) Magnesium [Moles/volume] in Serum or Plasma 2.0 mg/dL 1.8-2.4 [facility] ([facility]) Thyroxine (T4) free [Mass/volume] in Serum or Plasma 0.79 ng/dL 0.76- 1.46 [facility] ([facility]) ID Date Data Source [id number] 06/02/2021 11:05:00 AM EDT [facility] ([facility]) Name Value Range Interpretation Code Description Data Danuta rce(s) Supporting Document(s) Blood Urea Nitrogen 19 mg/dL 7-18 [facility] ([facility]) Glucose, Fasting 149 mg/dL 70-100 [facility] ([facility]) Creatinine For GFR 1.07 mg/dL 0.70-1.30 [facility] ([facility]) Glomerular Filtration Rate Laboratory test result [facility] ([facility]) <content>Units are mL/min/1.73 m2</content>
<content></content>
<content>Chronic Kidney Disease Staging per NKF:</content>
<content></content>
<content>Stage I & II GFR >=60 Normal to Mildly Decreased</content>
<content>Stage III GFR 30- 59 Moderately Decreased</content>
<content>Stage IV GFR 15-29 Severely Decreased</content>
<content>Stage V GFR <15 Very Little GFR Left</content>
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
<content></content> Sodium Level 139 meq/L 136-145 [facility] ([facility]) Potassium Serum 4.4 meq/L 3.5-5.1 [facility] ([facility]) Chloride Level 106 meq/L 98-107 [facility] ([facility]) Carbon Dioxide Level 27 meq/L 21-32 [facility] ([facility]) Ast/Sgot 24 U/L 7-37 [facility]) Anion Gap 6 meq/L 8-16 [facility] (Formerly named [facility]) Calcium Level 8.3 mg/dL 8.8-10.2 [facility] ([facility]) Alkaline Phosphatase 79 U/L 45-117 [facility] ([facility]) Alt/SGPT 55 U/L 12-78 [facility] ([facility] named [facility]) Bilirubin,Total 0.4 mg/dL 0.2-1.0 [facility] ([facility]) Total Protein 6.0 GM/DL 6.4-8.2 [facility] ([facility]) Albumin/Globulin Ratio 1.1 [facility] ([facility]) Albumin 3.2 GM/DL 3.2-5.2 [facility] ([facility] named [facility]) ID Date Data Source [id number] 06/02/2021 11:05:00 AM EDT [facility] ([facility]) Name Value Range Interpretation Code Description Data Danuta rce(s) Supporting Document(s) White Blood Count 11.4 10 4.0-10.0 [facility] ([facility]) Hemoglobin 15.3 g/dL 13.5-17.5 [facility] ([facility]) Red Blood Count 5.13 10 4.30-6.10 [facility] ([facility]) Hematocrit 47.7 % 42.0-52.0 [facility] ([facility]) Mean Corpuscular HGB Conc 32.1 g/dL 32.0-36.5 [facility] ([facility]) Mean Corpuscular Hemoglobin 29.8 pg 27.0-33.0 [facility] ([facility]) Mean Corpuscular Volume 93.0 fl 80.0-96.0 [facility] ([facility]) Platelet Count, Automated 234 10 150-450 [facility] ([facility]) Red Cell Distribution Width 15.9 % 11.5-14.5 [facility] ([facility]) Neutrophils % 71.9 % 36.0-66.0 [facility] ([facility]) Lymph % 16.8 % 24.0-44.0 [facility] [facility]) Elk % 5.7 % 2.0-8.0 [facility]) Baso % 1.0 % 0.0-1.0 [facility]) Eos % 0.1 % 0.0-3.0 [facility]) Immature Granulocyte % 4.5 % 0-3.0 [facility] ([facility]) Nucleated Red Blood Cell % 0.2 % 0-0 [facility] ([facility]) Neutrophils # 8.2 10 1.5-8.5 [facility] ([facility]) Lymph # 1.9 10 1.5-5.0 [facility] [facility]) Elk # 0.7 10 0.0-0.8 [facility]) Baso # 0.1 10 0.0-0.2 [facility]) Eos # 0.0 10 0.0-0.5 [facility] [facility]) ID Date Data Source [id number] 06/02/2021 11:05:00 AM EDT [facility] ([facility]) Name Value Range Interpretation Code Description Data Danuta rce(s) Supporting Document(s) White Blood Count 11.4 10 4.0-10.0 [facility] ([facility]) Hemoglobin 15.3 g/dL 13.5-17.5 [facility] ([facility]) Red Blood Count 5.13 10 4.30-6.10 [facility] ([facility]) Hematocrit 47.7 % 42.0-52.0 [facility] ([facility]) Mean Corpuscular Volume 93.0 fl 80.0-96.0 M EDENT ([facility]) Mean Corpuscular Hemoglobin 29.8 pg 27.0-33.0 [facility] ([facility]) Red Cell Distribution Width 15.9 % 11.5-14.5 [facility]) Mean Corpuscular HGB Conc 32.1 g/dL 32.0-36.5 [facility] ([facility]) Neutrophils % 71.9 % 36.0-66.0 [facility] ([facility]) Platelet Count, Automated 234 10 150-450 [facility] ([facility]) Lymph % 16.8 % 24.0-44.0 [facility] Elk % 5.7 % 2.0-8.0 [facility] Eos % 0.1 % 0.0-3.0 [facility] ([facility]) Immature Granulocyte % 4.5 % 0-3.0 [facility] ([facility]) Baso % 1.0 % 0.0-1.0 [facility] ([facility]) Neutrophils # 8.2 10 1.5-8.5 [facility] Nucleated Red Blood Cell % 0.2 % 0-0 MED [facility] ([facility]) Lymph # 1.9 10 1.5-5.0 [facility] ([facility] Elk # 0.7 10 0.0-0.8 [facility] ([facility] Baso # 0.1 10 0.0-0.2 [facility] ([facility]) Eos # 0.0 10 0.0-0.5 [facility] ([facility]) ID Date Data Source [id number] 06/02/2021 11:05:00 AM EDT [facility] ([facility]) Name Value Range Interpretation Code Description Data Danuta rce(s) Supporting Document(s) Magnesium [Mass/volume] in Serum or Plasma 2.0 mg/dL 1.8-2.4 [facility] ([facility]) Thyroxine (T4) free [Mass/volume] in Serum or Plasma 0.79 ng/dL 0.76- 1.46 [facility] ([facility]) ID Date Data Source [id number] 06/02/2021 11:05:00 AM EDT [facility] ([facility]) Name Value Range Interpretation Code Description Data Danuta rce(s) Supporting Document(s) Glucose, Fasting 149 mg/dL 70-100 [facility] ([facility]) Blood Urea Nitrogen 19 mg/dL 7-18 [facility] ([facility]) Creatinine For GFR 1.07 mg/dL 0.70-1.30 [facility] ([facility]) Glomerular Filtration Rate Laboratory test result [facility] ([facility]) <content>Units are mL/min/1.73 m2</content>
<content></content>
<content>Chronic Kidney Disease Staging per NKF:</content>
<content></content>
<content>Stage I & II GFR >=60 Normal to Mildly Decreased</content>
<content>Stage III GFR 30- 59 Moderately Decreased</content>
<content>Stage IV GFR 15-29 Severely Decreased</content>
<content>Stage V GFR <15 Very Little GFR Left</content>
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
<content></content> Sodium Level 139 meq/L 136-145 [facility] ([facility]) Potassium Serum 4.4 meq/L 3.5-5.1 [facility] ([facility]) Chloride Level 106 meq/L 98-107 [facility] ([facility]) Anion Gap 6 meq/L 8-16 [facility] ([facility]) Calcium Level 8.3 mg/dL 8.8-10.2 [facility] ([facility]) Carbon Dioxide Level 27 meq/L 21-32 [facility] ([facility]) Ast/Sgot 24 U/L 7-37 [facility] ([facility]) Alt/SGPT 55 U/L 12-78 [facility] ([facility]) Total Protein 6.0 GM/DL 6.4-8.2 [facility] ([facility]) Bilirubin,Total 0.4 mg/dL 0.2-1.0 [facility] ([facility]) Alkaline Phosphatase 79 U/L 45-117 [facility] ([facility]) Albumin 3.2 GM/DL 3.2-5.2 [facility] ([facility]) Albumin/Globulin Ratio 1.1 [facility] ([facility]) ID Date Data Source [id number] 05/19/2021 02:45:00 PM EDT [facility] ([facility]) Name Value Range Interpretation Code Description Data Danuta rce(s) Supporting Document(s) Magnesium [Moles/volume] in Serum or Plasma 2.2 mg/dL 1.8-2.4 [facility] ([facility]) Thyroxine (T4) free [Mass/volume] in Serum or Plasma 0.73 ng/dL 0.76- 1.46 [facility] ([facility]) ID Date Data Source [id number] 05/19/2021 02:45:00 PM EDT [facility] Name Value Range Interpretation Code Description Data Danuta rce(s) Supporting Document(s) Glucose, Fasting 257 mg/dL 70-100 [facility] ([facility]) Blood Urea Nitrogen 20 mg/dL 7-18 [facility] ([facility]) Creatinine For GFR 1.25 mg/dL 0.70-1.30 [facility] ([facility]) Glomerular Filtration Rate Laboratory test result [facility] <content>Units are mL/min/1.73 m2</content>
<content></content>
<content>Chronic Kidney Disease Staging per NKF:</content>
<content></content>
<content>Stage I & II GFR >=60 Normal to Mildly Decreased</content>
<content>Stage III GFR 30- 59 Moderately Decreased</content>
<content>Stage IV GFR 15-29 Severely Decreased</content>
<content>Stage V GFR <15 Very Little GFR Left</content>
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
<content></content> Sodium Level 138 meq/L 136-145 [facility] ([facility]) Chloride Level 104 meq/L 98-107 [facility] ([facility]) Potassium Serum 4.6 meq/L 3.5-5.1 [facility] ([facility]) Anion Gap 10 meq/L 8-16 [facility] ([place] [facility]) Calcium Level 8.8 mg/dL 8.8-10.2 [facility] ([facility]) Carbon Dioxide Level 24 meq/L 21-32 [facility] ([facility]) Alt/SGPT 52 U/L 12-78 [facility]) Ast/Sgot 18 U/L 7-37 [facility]) Alkaline Phosphatase 89 U/L 45-117 [facility] ([facility]) Total Protein 6.4 GM/DL 6.4-8.2 [facility] ([facility]) Bilirubin,Total 0.3 mg/dL 0.2-1.0 [facility] ([facility]) Albumin 3.3 GM/DL 3.2-5.2 [facility] ([facility]) Albumin/Globulin Ratio 1.1 [facility] ([facility]) ID Date Data Source [id number] 05/19/2021 02:45:00 PM EDT [facility] ([facility]) Name Value Range Interpretation Code Description Data Danuta rce(s) Supporting Document(s) White Blood Count 11.6 10 4.0-10.0 [facility] ([facility]) Hemoglobin 15.7 g/dL 13.5-17.5 [facility] ([facility]) Red Blood Count 5.26 10 4.30-6.10 [facility] ([facility]) Mean Corpuscular Volume 92.8 fl 80.0-96.0 [facility] ([facility]) Mean Corpuscular Hemoglobin 29.8 pg 27.0-33.0 [facility] ([facility]) Hematocrit 48.8 % 42.0-52.0 [facility] [facility] Red Cell Distribution Width 15.9 % 11.5-14.5 [facility] ([facility]) Mean Corpuscular HGB Conc 32.2 g/dL 32.0-36.5 [facility] ([facility]) Platelet Count, Automated 239 10 150-450 [facility] ([facility]) Lymph % 13.2 % 24.0-44.0 [facility]) Neutrophils % 76.6 % 36.0-66.0 [facility]) Elk % 4.0 % 2.0-8.0 [facility] [facility]) Eos % 0.0 % 0.0-3.0 [facility] [facility]) Immature Granulocyte % 5.0 % 0-3.0 [facility] ([facility]) Nucleated Red Blood Cell % 0.2 % 0-0 [facility] ([facility]) Baso % 1.2 % 0.0-1.0 [facility] [facility]) Lymph # 1.5 10 1.5-5.0 [facility] [facility]) Neutrophils # 8.9 10 1.5-8.5 [facility]) Baso # 0.1 10 0.0-0.2 [facility] [facility]) Eos # 0.0 10 0.0-0.5 [facility] [facility]) Elk # 0.5 10 0.0-0.8 [facility] [facility]) ID Date Data Source [id number] 04/13/2021 09:40:00 AM EDT [facility] ([facility] ) Name Value Range Interpretation Code Description Data Danuta rce(s) Supporting Document(s) Blood Urea Nitrogen 16 mg/dL 7-18 [facility] ([facility] ) Glucose, Fasting 209 mg/dL 70-100 [facility] ([facility] ) Creatinine For GFR 0.67 mg/dL 0.70-1.30 [facility] ([facility] ) Glomerular Filtration Rate Laboratory [facility] ([facility] ) <content>Units are mL/min/1.73 m2</content>
<content></content>
<content>Chronic Kidney Disease Staging per NKF:</content>
<content></content>
<content>Stage I & II GFR >=60 Normal to Mildly Decreased</content>
<content>Stage III GFR 30- 59 Moderately Decreased</content>
<content>Stage IV GFR 15-29 Severely Decreased</content>
<content>Stage V GFR <15 Very Little GFR Left</content>
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
<content></content> Potassium Serum 4.5 meq/L 3.5-5.1 [facility] ([facility]) Sodium Level 136 meq/L 136-145 [facility] Chloride Level 102 meq/L 98-107 [facility] Carbon Dioxide Level 25 meq/L 21-32 [facility] Calcium Level 8.0 mg/dL 8.8-10.2 [facility]) Anion Gap 9 meq/L 8-16 [facility] ID Date Data Source [id number] 04/13/2021 09:40:00 AM EDT [facility] ([facility]) Name Value Range Interpretation Code Description Data Danuta rce(s) Supporting Document(s) Calcidiol [Mass/volume] in Serum or Plasma 25.6 ng/mL 30.0-100.0 [facility] ([facility]) ID Date Data Source [id number] 03/05/2021 01:49:00 PM EDT [facility] ([facility]) Name Value Range Interpretation Code Description Data Danuta rce(s) Supporting Document(s) Respiratory Panel Laboratory test result [facility] ([facility]) This respiratory PCR panel detects Influ [...] - SARS-CoV-2 (COVID19) ID Date Data Source [id number] 03/05/2021 01:49:00 PM EDT [facility] Name Value Range Interpretation Code Description Data Danuta rce(s) Supporting Document(s) SARS-CoV-2 (COVID 19) NEGATIVE - SARS-CoV-2 (COVID19) [place] This lab was ordered by [facility] a nd reported by [facility]. ID Date Data Source [id number] 03/05/2021 01:40:00 PM EDT [facility] ([facility]) Name Value Range Interpretation Code Description Data Danuta rce(s) Supporting Document(s) Bedside Glucose 160 mg/dL 80-115 [facility] ([facility]) ID Date Data Source [id number] 03/05/2021 01:35:00 PM EDT [facility] ([facility]) Name Value Range Interpretation Code Description Data Danuta rce(s) Supporting Document(s) Hemoglobin 16.9 g/dL 13.5-17.5 [facility] [facility] White Blood Count 10.3 10 4.0-10.0 [facility] ([facility]) Red Blood Count 5.58 10 4.30-6.10 [facility] ([facility]) Hematocrit 49.8 % 42.0-52.0 [facility] [facility]) Mean Corpuscular Volume 89.2 fl 80.0-96.0 [facility] ([facility]) Mean Corpuscular Hemoglobin 30.3 pg 27.0-33.0 [facility] ([facility]) Mean Corpuscular HGB Conc 33.9 g/dL 32.0-36.5 [facility] ([facility]) Platelet Count, Automated 190 10 150-450 [facility] ([facility]) Red Cell Distribution Width 16.1 % 11.5-14.5 [facility] ([facility]) Nucleated Red Blood Cell % 0.0 % 0-0 [facility] ([facility]) ID Date Data Source [id number] 03/05/2021 01:35:00 PM EDT [facility] ([facility]) Name Value Range Interpretation Code Description Data Danuta rce(s) Supporting Document(s) Neutrophils 78 % 28-66 [facility] ([facility]) Bands 3 % [facility] [facility]) Lymphocytes 9 % 16-44 [facility] ([facility]) Monocytes 8 % 0-5 [facility] [facility] Atypical Lymph 1 % 0-5 [facility] ([facility]) Eosinophils 1 % 0-3 [facility] ([facility]) Anisocytosis Laboratory test result [facility] ([facility]) ID Date Data Source [id number] 03/05/2021 01:35:00 PM EDT [facility] ([facility]) Name Value Range Interpretation Code Description Data Danuta rce(s) Supporting Document(s) Platelets [#/volume] in Blood by Estimate Laboratory test result [facility] ([facility]) ID Date Data Source [id number] 03/05/2021 01:35:00 PM EDT [facility] ([facility]) Name Value Range Interpretation Code Description Data Danuta rce(s) Supporting Document(s) CPK Creatine Phosphokinase 33 U/L 39-308 [facility] ([facility]) CK-MB Value Mass Laboratory test result [facility] ([facility]) MB/CK Relative Index 3.03 [facility] ([facility]) <content>DIAGNOSIS CRITERIA</content>
<content>MMB ng/ml Relative Index (RI)</content>
<content>NON-AMI < or = 5 N/A</content>
<content>OBRIEN ZONE > 5 < or = 4</content>
<content>AMI > 5 > 4</content>
<content></content> Troponin I Laboratory test [facility] <content>Troponin I Reference Interval f or Siemens [place] LOCI:</content>
<content></content>
<content>99th Percentile= 0.00-0.045 ng/ml</content>
<content></content>
<content>Risk Stratification:</content>
<content><= 0.10 ng/ml Decreased Risk for Adverse Clinical</content>
<content>Events.</content>
<content>0.10-1.50 ng/ml Increased Risk for Adverse Clinical</content>
<content>Events. Evaluation of additional</content>
<content>criterion and/or repeat testing in 2-6</content>
<content>hours is suggested to rule out myocardial</content>
<content>damage.</content>
<content>>= 1.50 ng/ml Indicative of Myocardial Injury.</content>
<content></content> ID Date Data Source [id number] 03/05/2021 01:35:00 PM EDT [facility] ([facility]) Name Value Range Interpretation Code Description Data Danuta rce(s) Supporting Document(s) Ast/Sgot 20 U/L 7-37 [facility] ([facility]) Alt/SGPT 49 U/L 12-78 [facility] ([facility]) Alkaline Phosphatase 88 U/L 45-117 [facility] Bilirubin,Total 1.0 mg/dL 0.2-1.0 [facility] ([facility]) Albumin 2.8 GM/DL 3.2-5.2 [facility] ([facility] named [facility]) Bilirubin,Direct 0.4 mg/dL 0.0-0.2 [facility] ([facility]) Total Protein 5.4 GM/DL 6.4-8.2 [facility] ([facility]) Albumin/Globulin Ratio 1.1 [facility] ([facility]) ID Date Data Source [id number] 03/05/2021 01:35:00 PM EDT [facility] ([facility]) Name Value Range Interpretation Code Description Data Danuta rce(s) Supporting Document(s) Glucose, Fasting 153 mg/dL 70-100 [facility] ([facility]) Creatinine For GFR 1.11 mg/dL 0.70-1.30 [facility] ([facility]) Blood Urea Nitrogen 16 mg/dL 7-18 Significant change down [facility] ([facility]) Glomerular Filtration Rate Laboratory [facility] <content>Units are mL/min/1.73 m2</content>
<content></content>
<content>Chronic Kidney Disease Staging per NKF:</content>
<content></content>
<content>Stage I & II GFR >=60 Normal to Mildly Decreased</content>
<content>Stage III GFR 30- 59 Moderately Decreased</content>
<content>Stage IV GFR 15-29 Severely Decreased</content>
<content>Stage V GFR <15 Very Little GFR Left</content>
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
<content></content> Sodium Level 126 meq/L 136-145 [facility] ([facility]) Potassium Serum 4.5 meq/L 3.5-5.1 [facility] ([facility]) Anion Gap 6 meq/L 8-16 [facility] [facility]) Chloride Level 94 meq/L 98-107 [facility] ([facility]) Carbon Dioxide Level 26 meq/L 21-32 [facility] ([facility]) Calcium Level 8.3 mg/dL 8.8-10.2 [facility] ([facility]) ID Date Data Source [id number] 03/05/2021 01:35:[address] [facility] ([facility]) Name Value Range Interpretation Code Description Data Danuta rce(s) Supporting Document(s) Thyrotropin [Units/volume] in Serum or Plasma by Detec tion limit <= 0.05 mIU/L Laboratory test result 0.358-3.740 [facility] ([facility]) Thyroxine (T4) free [Mass/volume] in Serum or Plasma 0.75 ng/dL 0.76- 1.46 [facility] ([facility]) Magnesium [Moles/volume] in Serum or Plasma 2.0 mg/dL 1.8-2.4 [facility] ([facility]) Urate [Mass/volume] in Serum or Plasma 4.8 mg/dL 3.5-7.2 [facility] ([facility]) ID Date Data Source [id number] 03/04/2021 09:10:00 AM EDT [facility] ([facility]) Name Value Range Interpretation Code Description Data Danuta rce(s) Supporting Document(s) Glucose, Fasting 120 mg/dL 70-100 [facility] ([facility]) Blood Urea Nitrogen 9 mg/dL 7-18 [facility] ([facility]) Glomerular Filtration Rate Laboratory test result [facility] ([facility]) <content>Units are mL/min/1.73 m2</content>
<content></content>
<content>Chronic Kidney Disease Staging per NKF:</content>
<content></content>
<content>Stage I & II GFR >=60 Normal to Mildly Decreased</content>
<content>Stage III GFR 30- 59 Moderately Decreased</content>
<content>Stage IV GFR 15-29 Severely Decreased</content>
<content>Stage V GFR <15 Very Little GFR Left</content>
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
<content></content> Creatinine For GFR 0.83 mg/dL 0.70-1.30 [facility] ([facility]) Chloride Level 100 meq/L 98-107 [facility] ([facility]) Potassium Serum 4.3 meq/L 3.5-5.1 Significant change down [facility] ([facility]) Sodium Level 135 meq/L 136-145 [facility] ([facility]) Anion Gap 8 meq/L 8-16 [facility] [facility] Carbon Dioxide Level 27 meq/L 21-32 [facility] ([facility]) Calcium Level 8.4 mg/dL 8.8-10.2 [facility] ([facility]) ID Date Data Source [id number] 03/04/2021 09:10:00 AM EDT [facility] ([facility]) Name Value Range Interpretation Code Description Data Danuta rce(s) Supporting Document(s) Magnesium [Moles/volume] in Serum or Plasma 1.7 mg/dL 1.8-2.4 [facility] ([facility]) ID Date Data Source [id number] 03/04/2021 09:10:00 AM EDT [facility] ([facility]) Name Value Range Interpretation Code Description Data Danuta rce(s) Supporting Document(s) Calcium.ionized [Mass/volume] in Serum o r Plasma by Ion-selective membrane electrode (ISE) 4.6 mg/dL 4.5-5.3 [facility]) ID Date Data Source [id number] 03/03/2021 10:25:00 AM EDT [facility] ([facility]) Name Value Range Interpretation Code Description Data Danuta rce(s) Supporting Document(s) Magnesium [Mass/volume] in Serum or Plasma 1.7 mg/dL 1.8-2.4 [facility] ([facility]) ID Date Data Source [id number] 03/03/2021 10:25:00 AM EDT [facility] ([facility]) Name Value Range Interpretation Code Description Data Danuta rce(s) Supporting Document(s) Glucose, Fasting 150 mg/dL 70-100 [facility] ([facility]) Blood Urea Nitrogen 9 mg/dL 7-18 [facility] (No [facility]) Glomerular Filtration Rate Laboratory test result [facility] ([facility]) <content>Units are mL/min/1.73 m2</content>
<content></content>
<content>Chronic Kidney Disease Staging per NKF:</content>
<content></content>
<content>Stage I & II GFR >=60 Normal to Mildly Decreased</content>
<content>Stage III GFR 30- 59 Moderately Decreased</content>
<content>Stage IV GFR 15-29 Severely Decreased</content>
<content>Stage V GFR <15 Very Little GFR Left</content>
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
<content></content> Creatinine For GFR 0.85 mg/dL 0.70-1.30 [facility] ([facility]) Potassium Serum 3.5 meq/L 3.5-5.1 [facility] ([facility] Sodium Level 138 meq/L 136-145 [facility] ([facility] ) Chloride Level 104 meq/L 98-107 [facility] ([facility]) Carbon Dioxide Level 27 meq/L 21-32 [facility] Calcium Level 7.9 mg/dL 8.8-10.2 [facility] Anion Gap 7 meq/L 8-16 [facility] ID Date Data Source [id number] 03/01/2021 12:27:00 PM EDT [facility] ([facility]) Name Value Range Interpretation Code Description Data Danuta rce(s) Supporting Document(s) Respiratory Panel Laboratory test result [facility] ([facility]) This respiratory PCR panel detects Influ [...] - SARS-CoV-2 (COVID19) ID Date Data Source [id number] 03/01/2021 12:27:00 PM EDT [facility] Name Value Range Interpretation Code Description Data Danuta rce(s) Supporting Document(s) SARS-CoV-2 (COVID 19) NEGATIVE - SARS-CoV-2 (COVID19) [facility] This lab was ordered by [facility] a nd reported by [facility]. ID Date Data Source [id number] 02/27/2021 12:00:00 AM EDT [facility] Name Value Range Interpretation Code Description Data Danuta rce(s) Supporting Document(s) SARS-CoV2 Rapid Antigen Negative [facility] This lab was ordered by [facility] and reported by Jayjay Saha MD. ID Date Data Source [id number] 02/23/2021 05:14:00 PM EDT [facility] ([facility]) Name Value Range Interpretation Code Description Data Danuta rce(s) Supporting Document(s) Lactate [Mass/volume] in Serum or Plasma 2.4 mmol/L 0.4-2.0 Above upper panic limits [facility] ([facility]) Y/N query for Sepsis Lactate Rule: Y ID Date Data Source [id number] 02/23/2021 05:14:00 PM EDT [facility] ([facility]) Name Value Range Interpretation Code Description Data Danuta rce(s) Supporting Document(s) Glucose, Fasting 148 mg/dL 70-100 [facility] ([facility]) Blood Urea Nitrogen 14 mg/dL 7-18 [facility] ([facility]) Creatinine For GFR 0.89 mg/dL 0.70-1.30 [facility] ([facility]) Potassium Serum 3.6 meq/L 3.5-5.1 [facility] ([facility]) Sodium Level 143 meq/L 136-145 [facility] ([facility]) Glomerular Filtration Rate Laboratory test result [facility] <content>Units are mL/min/1.73 m2</content>
<content></content>
<content>Chronic Kidney Disease Staging per NKF:</content>
<content></content>
<content>Stage I & II GFR >=60 Normal to Mildly Decreased</content>
<content>Stage III GFR 30- 59 Moderately Decreased</content>
<content>Stage IV GFR 15-29 Severely Decreased</content>
<content>Stage V GFR <15 Very Little GFR Left</content>
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
<content></content> Carbon Dioxide Level 27 meq/L 21-32 [facility] Chloride Level 111 meq/L 98-107 [facility] ([facility]) Calcium Level 7.4 mg/dL 8.8-10.2 [facility] ([facility]) Anion Gap 5 meq/L 8-16 [facility] [facility]) ID Date Data Source [id number] 02/23/2021 02:19:00 PM EDT [facility] ([facility]) Name Value Range Interpretation Code Description Data Danuta rce(s) Supporting Document(s) Blood Culture Laboratory test result [facility] ([facility]) No growth after 72 hours . All specimens observed for 5 days. Results final at that time. No growth after 48 hours . All specimens observed for 5 days. Results final at that time. No growth after 24 hours . All specimens observed for 5 days. Results final at that time. NO GROWTH AFTER 5 DAYS ID Date Data Source [id number] 02/23/2021 02:19:00 PM EDT [facility] Name Value Range Interpretation Code Description Data Danuta rce(s) Supporting Document(s) Amphetamines Level Urine Laboratory test result [facility] Barbiturates Urine Laboratory test result [facility] Benzodiazepines Urine Laboratory test result [facility] Cocaine Metabolite Urine Laboratory test result [facility] [facility] Cannabinoids Urine Laboratory test result [facility] [facility] Methadone Urine [facility]) Opiates Urine Laboratory test result [facility] [facility] Phencyclidine Urine [facility] ALL PRESUMPTIVE POSITIVE FINDINGS AR E UNCONFIRMED [...] CALL THE LAB. ID Date Data Source [id number] 02/23/2021 02:19:00 PM EDT [facility] Name Value Range Interpretation Code Description Data Danuta rce(s) Supporting Document(s) Creatinine [Mass/volume] in Urine 105.0 mg/dL [facility] ([facility] Osmolality of Urine 693 MOSM/KG 50-1400 [facility] ( [place] [facility] Sodium [Moles/volume] in Urine 111 meq/L [facility] [facility] ID Date Data Source [id number] 02/23/2021 02:19:00 PM EDT [facility] Name Value Range Interpretation Code Description Data Danuta rce(s) Supporting Document(s) Appearance, Urine RFX Laboratory test result [facility] ([facility]) Color, Urine RFX Laboratory test result [facility] ([facility]) Protein, Urine Auto RFX Laboratory test result [facility] ([facility]) PH,Urine RFX 6.0 units 5.0-9.0 [facility] [facility] Specific [place] Ur Auto RFX 1.020 1.002-1.[address] [facility] Ketone, Urine Auto RFX Laboratory test result [facility] ([facility]) Glucose, Urine (Ua) Auto RFX Laboratory test result [facility] [facility] Nitrite, Urine Auto RFX Laboratory test result [facility] [facility] Bilirubin, Urine Auto RFX Laboratory test result [facility] ([facility]) Urobilinogen, Urine Auto RFX 0.2 mg/dL 0.0-2.0 [facility] [facility] Blood, Urine Blood RFX Laboratory test result [facility] ([facility]) Leukocyte Esterase Ur Auto RFX Laboratory test result [facility] ([facility]) WBC, Urine Auto RFX 1 /HPF 0-3 [facility] Bacteria, Urine Auto RFX Laboratory test result [facility] ([facility]) RBC, Urine Auto RFX 10 /HPF 0-3 [facility] Mucus, Urine RFX Laboratory test result [facility] ([facility]) Squam Epithelial Cell Ur Aurfx 0 /HPF 0-6 [facility] [facility] Hyaline Cast, Urine Auto RFX 0 /LPF 0-1 M [facility] ([facility]) ID Date Data Source [id number] 02/23/2021 01:39:[address]) Name Value Range Interpretation Code Description Data Danuta rce(s) Supporting Document(s) Bedside Glucose 216 mg/dL 80-[address] [facility] ([facility]) ID Date Data Source [id number] 02/23/2021 01:10:00 PM EDT [facility] Name Value Range Interpretation Code Description Data Danuta rce(s) Supporting Document(s) Osmolality of Serum or Plasma 294 MOSM/KG 280-301 [facility] ([facility]) Salicylates [Mass/volume] in Serum or Plasma Laboratory test result 5.0-30.0 [facility] ([facility]) Ethanol [Mass/volume] in Serum or Plasma Laboratory test result 0.000 -0.010 [facility] [facility] Acetaminophen [Mass/volume] in Serum or Plasma 2.7 UG/ML 10.0-30.0 [facility] ([facility]) Thyroxine (T4) free [Mass/volume] in Serum or Plasma 0.88 ng/dL 0.76- 1.46 [facility] ([facility]) Thyrotropin [Units/volume] in Serum or Plasma by Detec tion limit <= 0.05 mIU/L Laboratory test result 0.358-3.740 [facility] ([facility]) Magnesium [Moles/volume] in Serum or Plasma 1.8 mg/dL 1.8-2.4 [facility] ([facility]) ID Date Data Source [id number] 02/23/2021 01:10:00 PM EDT [facility] ([facility]) Name Value Range Interpretation Code Description Data Danuta rce(s) Supporting Document(s) Blood Urea Nitrogen 16 mg/dL 7-18 [facility] ([facility]) Glucose, Fasting 223 mg/dL 70-100 [facility] ([facility]) Glomerular Filtration Rate Laboratory test result [facility] ([facility]) <content>Units are mL/min/1.73 m2</content>
<content></content>
<content>Chronic Kidney Disease Staging per NKF:</content>
<content></content>
<content>Stage I & II GFR >=60 Normal to Mildly Decreased</content>
<content>Stage III GFR 30- 59 Moderately Decreased</content>
<content>Stage IV GFR 15-29 Severely Decreased</content>
<content>Stage V GFR <15 Very Little GFR Left</content>
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
<content></content> Creatinine For GFR 1.00 mg/dL 0.70-1.30 [facility] ([facility]) Potassium Serum 3.0 meq/L 3.5-5.1 [facility] ([facility]) Chloride Level 104 meq/L 98-107 [facility] ([facility]) Sodium Level 140 meq/L 136-145 [facility] ([facility]) Anion Gap 9 meq/L 8-16 [facility] [facility]) Carbon Dioxide Level 27 meq/L 21-32 [facility] ([facility]) Calcium Level 8.5 mg/dL 8.8-10.2 [facility] ([facility]) ID Date Data Source [id number] 02/23/2021 01:10:00 PM EDT [facility] ([facility]) Name Value Range Interpretation Code Description Data Danuta rce(s) Supporting Document(s) Ast/Sgot 18 U/L 7-37 [facility] [facility]) Alt/SGPT 47 U/L 12-78 [facility] [facility]) Alkaline Phosphatase 89 U/L 45-117 [facility] ([facility]) Bilirubin,Total 0.6 mg/dL 0.2-1.0 [facility] ([facility]) Bilirubin,Direct 0.2 mg/dL 0.0-0.2 [facility] ([facility]) Total Protein 5.5 GM/DL 6.4-8.2 [facility] ([facility]) Albumin 2.8 GM/DL 3.2-5.2 [facility] [facility]) Albumin/Globulin Ratio 1.0 [facility] ([facility]) ID Date Data Source [id number] 02/23/2021 01:10:00 PM EDT [facility] ([facility]) Name Value Range Interpretation Code Description Data Danuta rce(s) Supporting Document(s) CPK Creatine Phosphokinase 22 U/L 39-308 [facility] ([facility]) CK-MB Value Mass 1.2 ng/mL [facility] ([facility]) MB/CK Relative Index 5.45 [facility] ([facility]) <content>DIAGNOSIS CRITERIA</content>
<content>MMB ng/ml Relative Index (RI)</content>
<content>NON-AMI < or = 5 N/A</content>
<content>OBRIEN ZONE > 5 < or = 4</content>
<content>AMI > 5 > 4</content>
<content></content> Troponin I Laboratory test result [facility] ([facility]) <content>Troponin I Reference Interval f or Siemens [place] LOCI:</content>
<content></content>
<content>99th Percentile= 0.00-0.045 ng/ml</content>
<content></content>
<content>Risk Stratification:</content>
<content><= 0.10 ng/ml Decreased Risk for Adverse Clinical</content>
<content>Events.</content>
<content>0.10-1.50 ng/ml Increased Risk for Adverse Clinical</content>
<content>Events. Evaluation of additional</content>
<content>criterion and/or repeat testing in 2-6</content>
<content>hours is suggested to rule out myocardial</content>
<content>damage.</content>
<content>>= 1.50 ng/ml Indicative of Myocardial Injury.</content>
<content></content> ID Date Data Source [id number] 02/23/2021 01:10:[address]) Name Value Range Interpretation Code Description Data Danuta rce(s) Supporting Document(s) Ammonia [Mass/volume] in Blood 26 uMOL/L [facility] ([facility]) Lactate [Mass/volume] in Serum or Plasma 3.9 mmol/L 0.4-2.0 Above upper panic limits [facility] ([facility]) Y/N query for Sepsis Lactate Rule: Y ID Date Data Source [id number] 02/23/2021 01:10:[address] ([place] [facility]) Name Value Range Interpretation Code Description Data Danuta rce(s) Supporting Document(s) White Blood Count 8.0 10 4.0-10.0 [facility] ([facility]) Hemoglobin 15.7 g/dL 13.5-17.5 [facility] ([facility]) Red Blood Count 5.06 10 4.30-6.10 [facility] ([facility]) Mean Corpuscular Volume 93.1 fl 80.0-96.0 [facility] ([facility]) Hematocrit 47.1 % 42.0-52.0 [facility] ([facility]) Mean Corpuscular Hemoglobin 31.0 pg 27.0-33.0 [facility] ([facility]) Red Cell Distribution Width 16.3 % 11.5-14.5 [facility] ([facility]) Mean Corpuscular HGB Conc 33.3 g/dL 32.0-36.5 [facility] ([facility]) Platelet Count, Automated 160 10 150-450 [facility] ([facility]) Neutrophils % 74.6 % 36.0-66.0 [facility] ([facility]) Lymph % 14.8 % 24.0-44.0 [facility] [facility]) Elk % 4.1 % 2.0-8.0 [facility] [facility]) Eos % 0.0 % 0.0-3.0 [facility] [facility]) Nucleated Red Blood Cell % 0.4 % 0-0 [facility] ([facility]) Immature Granulocyte % 5.0 % 0-3.0 [facility] ([facility]) Baso % 1.5 % 0.0-1.0 [facility] [facility] Lymph # 1.2 10 1.5-5.0 [facility] [facility] Neutrophils # 6.0 10 1.5-8.5 [facility] ([facility]) Elk # 0.3 10 0.0-0.8 [facility] [facility] Baso # 0.1 10 0.0-0.[address] [facility] [facility] Eos # 0.0 10 0.0-0.[address] [facility] [facility] ID Date Data Source [id number] 02/23/2021 01:10:00 PM EDT [facility] Name Value Range Interpretation Code Description Data Danuta rce(s) Supporting Document(s) Blood Culture Laboratory test result [facility] ([place] [facility] No growth after 72 hours . All specimens observed for 5 days. Results final at that time. No growth after 48 hours . All specimens observed for 5 days. Results final at that time. No growth after 24 hours . All specimens observed for 5 days. Results final at that time. NO GROWTH AFTER 5 DAYS ID Date Data Source [id number] 01/26/2021 08:51:00 AM EDT [facility] Name Value Range Interpretation Code Description Data Danuta rce(s) Supporting Document(s) Testosterone [Mass/volume] in Serum or Plasma 201 ng/dL [id number] [facility] ([place] [facility] NORMAL RANGES ARE FOR ADULT FEMALES (OVE R 15 YRS) AND MALES (OVER 19 YRS). FOR PEDIATRIC RANGES PLE ASE CONSULT LITERATURE. ID Date Data Source [id number] 01/26/2021 08:50:00 AM EDT [facility] Name Value Range Interpretation Code Description Data Danuta rce(s) Supporting Document(s) Thyroxine (T4) free [Mass/volume] in Serum or Plasma 0.93 ng/dL 0.76- 1.46 [facility] [facility] ID Date Data Source [id number] 01/26/2021 08:50:00 AM EDT [facility] Name Value Range Interpretation Code Description Data Danuta rce(s) Supporting Document(s) Glucose mean value [Mass/volume] in Blood Estimated fr om glycated hemoglobin 140 mg/dL 60-110 [facility] [facility] Hemoglobin A1c/Hemoglobin.total in Blood 6.5 % [facility] [facility] Lab Result Notes: Pre-Diabetes 5.7 - 6.4 % Diabetes = or > 6.5% ID Date Data Source [id number] 01/26/2021 08:50:00 AM EDT [facility] ([facility]) Name Value Range Interpretation Code Description Data Danuta rce(s) Supporting Document(s) Glucose [Mass/volume] in Serum or Plasma 248 mg/dL 74-99 [facility] ([facility]) 100-125 mg/dL PRE-DIABETES/FASTING >126 mg/dL DIABETES/FASTING Urea nitrogen [Mass/volume] in Serum or Plasma 19 mg/dL 7-18 [facility] ([facility]) Creatinine 1.1 mg/dL 0.6-1.3 [facility] Sodium [Moles/volume] in Serum or Plasma 141 meq/L 136-145 [facility] ([facility]) Potassium [Moles/volume] in Serum or Plasma 3.2 meq/L 3.5-5.1 [facility] ([facility]) Chloride [Moles/volume] in Serum or Plasma 102 meq/L 98-107 [facility] ([facility]) Calcium [Mass/volume] in Serum or Plasma 8.2 mg/dL 8.5-10.1 [facility] ([facility]) Carbon dioxide, total [Moles/volume] in Serum or Plasma 25 meq/L 21 -32 [facility] ([facility]) Alkaline phosphatase isoenzyme [Units/volume] in Serum or Pl asma 110 mg/dL 46-116 [facility] ([facility]) Total Bilirubin 0.6 mg/dL 0.2-1.0 [facility] ([facility]) Aspartate aminotransferase [Enzymatic activity/volume] in Serum or Plasma 22 U/L 15-37 [facility] ([facility] ) Albumin [Mass/volume] in Serum or Plasma 2.8 g/dL 3.4-5.0 [facility] ([facility]) Alanine aminotransferase [Enzymatic activity/volume] in Seru m or Plasma 70 U/L 12-78 [facility] ([facility]) A/G Ratio 0.93 CALC 1.00-1.90 [facility] [facility]) Proteinase 3 Ab [Units/volume] in Serum 5.8 g/dL 6.4-8.2 [facility] ([facility]) Glomerular filtration rate/1.73 sq M pre dicted among non-blacks [Volume Rate/Area] in Serum or Plasma by Creatinine-based formula (MDRD) Laboratory test result [facility] ([facility] [facility] Glomerular filtration rate/1.73 sq M pre dicted among blacks [Volume Rate/Area] in Serum or Plasma by Creatinine-based formula (MDRD) Laboratory test result [facility] [facility] <content>CHRONIC KIDNEY DISEASE STAGING PER NKF</content>
<content></content>
<content>STAGE I & II GFR >= 60 NORMAL TO MILDLY DECREASED</content>
<content>STAGE III GFR 30-59 MODERATELY DECREASED</content>
<content>STAGE IV GFR 15-29 SEVERELY DECREASED</content>
<content>STAGE V GFR <15 VERY LITTLE GFR LEFT</content>
<content>ESRD GFR <15 ON WASHER AND CAPPER MACHINE OPERATOR</content>
<content></content> ID Date Data Source [id number] 01/26/2021 08:50:[address] [facility] Name Value Range Interpretation Code Description Data Danuta rce(s) Supporting Document(s) Erythrocytes [#/volume] in Blood by Automated count 4.97 x10*6/UL 4.2 0-6.[address] [facility] ([facility] [facility] Leukocytes [#/volume] in Blood by Automated count 13.0 x10*3/UL 4.1-1 0.9 [facility] ([facility]) NOTE: CBC VERIFIED Hematocrit [Volume Fraction] of Blood by Automated count 45.1 % 3 7.0-51.0 [facility] ([facility] [facility] Hemoglobin [Mass/volume] in Blood 15.1 g/dL 12.0-18.0 [facility] ([facility]) MCH 30.4 pg 26.0-32.0 [facility] [facility] MCV 90.8 fL 80.0-97.0 [facility] [facility]) MCHC 33.5 g/dL 31.0-38.0 [facility] [facility] Erythrocyte distribution width [Ratio] by Automated count 15.3 % 11.6-13.7 [facility] ([facility]) Platelets [#/volume] in Blood by Automated count 187 x10*3/UL 140-440 [facility] ([facility]) Lymph % 10.8 % 10.0-58.5 [facility] [facility]) MPV 8.3 FL 7.8-11.0 [facility] [facility]) Neut % 85.6 % 37.0-92.0 [facility] [facility]) Mid % 3.6 % 1.7-9.3 [facility] [facility] Neut # 11.2 x10*3/UL 2.0-7.8 [facility] ([facility]) Mid # 0.4 x10*3/UL 0.1-0.6 [facility] ([facility]) Lymph # 1.4 x10*3/UL 0.6-4.1 [facility] ([facility]) ID Date Data Source [id number] 01/13/2021 02:50:00 PM EDT [facility] Name Value Range Interpretation Code Description Data Danuta rce(s) Supporting Document(s) SARS-CoV-2 (COVID-19) Negative [facility] This lab was ordered by [facility] and reported by [employer]. ID Date Data Source [id number] 01/08/2021 03:17:00 PM EDT [facility] ([facility]) Name Value Range Interpretation Code Description Data Danuta rce(s) Supporting Document(s) Glucose, Fasting 226 mg/dL 70-100 [facility] ([facility]) Blood Urea Nitrogen 15 mg/dL 7-18 [facility] ([facility]) Glomerular Filtration Rate Laboratory test result [facility] ([facility]) <content>Units are mL/min/1.73 m2</content>
<content></content>
<content>Chronic Kidney Disease Staging per NKF:</content>
<content></content>
<content>Stage I & II GFR >=60 Normal to Mildly Decreased</content>
<content>Stage III GFR 30- 59 Moderately Decreased</content>
<content>Stage IV GFR 15-29 Severely Decreased</content>
<content>Stage V GFR <15 Very Little GFR Left</content>
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
<content></content> Sodium Level 139 meq/L 136-145 [facility] ([facility]) Creatinine For GFR 1.09 mg/dL 0.70-1.30 [facility] ([facility]) Chloride Level 103 meq/L 98-107 [facility] ([facility]) Potassium Serum 3.8 meq/L 3.5-5.1 [facility] ([facility]) Anion Gap 6 meq/L 8-16 [facility] ([facility]) Carbon Dioxide Level 30 meq/L 21-32 [facility] ([facility]) Calcium Level 7.9 mg/dL 8.8-10.2 [facility] ([facility]) ID Date Data Source [id number] 01/08/2021 03:17:00 PM EDT [facility] ([facility]) Name Value Range Interpretation Code Description Data Danuta rce(s) Supporting Document(s) Magnesium [Moles/volume] in Serum or Plasma 2.3 mg/dL 1.8-2.4 [facility] ([facility]) ID Date Data Source [id number] 01/08/2021 03:17:00 PM EDT [facility] ([facility]) Name Value Range Interpretation Code Description Data Danuta rce(s) Supporting Document(s) Blood Urea Nitrogen 16 mg/dL 7-18 [facility] ([facility]) Creatinine For GFR 1.11 mg/dL 0.70-1.30 [facility] ([facility]) Glucose, Fasting 237 mg/dL 70-100 [facility] ([facility]) Glomerular Filtration Rate Laboratory test result [facility] ([facility]) <content>Units are mL/min/1.73 m2</content>
<content></content>
<content>Chronic Kidney Disease Staging per NKF:</content>
<content></content>
<content>Stage I & II GFR >=60 Normal to Mildly Decreased</content>
<content>Stage III GFR 30- 59 Moderately Decreased</content>
<content>Stage IV GFR 15-29 Severely Decreased</content>
<content>Stage V GFR <15 Very Little GFR Left</content>
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
<content></content> Sodium Level 141 meq/L 136-145 [facility] ([facility]) Chloride Level 103 meq/L 98-107 [facility] ([facility]) Potassium Serum 3.9 meq/L 3.5-5.1 [facility] ([facility]) Carbon Dioxide Level 30 meq/L 21-32 [facility] ([facility]) Ast/Sgot 21 U/L 7-37 [facility] ([facility]) Anion Gap 8 meq/L 8-16 [facility] ([facility]) Calcium Level 8.3 mg/dL 8.8-10.2 [facility] ([facility]) Alkaline Phosphatase 126 U/L 45-117 [facility] ([facility]) Alt/SGPT 62 U/L 12-78 [facility] ([facility]) Total Protein 5.3 GM/DL 6.4-8.2 [facility] ([facility]) Bilirubin,Total 0.5 mg/dL 0.2-1.0 [facility] ([facility]) Albumin 2.6 GM/DL 3.2-5.2 [facility] ([facility]) Albumin/Globulin Ratio 1.0 [facility] ([facility]) ID Date Data Source [id number] 12/17/2020 09:08:57 AM [facility] MR BRAIN WITH AND WITHOUT CONTRAST [id number] FINAL RESULTInterpreted by:Gordon Lezama MD12/16/2020 4:12 PM MR BRAIN WITH AND WITHOUT CONTRAST [id number] 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
<content></content>
<content>Chronic Kidney Disease Staging per NKF:</content>
<content></content>
<content>Stage I & II GFR >=60 Normal to Mildly Decreased</content>
<content>Stage III GFR 30- 59 Moderately Decreased</content>
<content>Stage IV GFR 15-29 Severely Decreased</content>
<content>Stage V GFR <15 Very Little GFR Left</content>
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
<content></content> Blood Urea Nitrogen 29 mg/dL 7-18 [facility] ([facility]) Creatinine For GFR 1.19 mg/dL 0.70-1.30 [facility] ([facility]) Sodium Level 137 meq/L 136-145 [facility] ([facility]) Potassium Serum 4.2 meq/L 3.5-5.1 [facility] ([facility]) Chloride Level 100 meq/L 98-107 [facility] Carbon Dioxide Level 33 meq/L 21-32 [facility] ([facility]) Calcium Level 9.2 mg/dL 8.8-10.2 [facility] ([facility]) Anion Gap 4 meq/L 8-16 [facility] ([facility]) ID Date Data Source [id number] 10/31/2020 01:10:00 PM EST [facility] ([facility]) Name Value Range Interpretation Code Description Data Danuta rce(s) Supporting Document(s) Glucose, Fasting 100 mg/dL 70-100 [facility] ([facility]) Blood Urea Nitrogen 29 mg/dL 7-18 [facility] ([facility]) Creatinine For GFR 1.19 mg/dL 0.70-1.30 [facility] ([facility]) Glomerular Filtration Rate Laboratory test result [facility] ([facility]) <content>Units are mL/min/1.73 m2</content>
<content></content>
<content>Chronic Kidney Disease Staging per NKF:</content>
<content></content>
<content>Stage I & II GFR >=60 Normal to Mildly Decreased</content>
<content>Stage III GFR 30- 59 Moderately Decreased</content>
<content>Stage IV GFR 15-29 Severely Decreased</content>
<content>Stage V GFR <15 Very Little GFR Left</content>
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
<content></content> Sodium Level 137 meq/L 136-145 [facility] ([facility]) Potassium Serum 4.2 meq/L 3.5-5.1 [facility] ([facility]) Chloride Level 100 meq/L 98-107 [facility] ([facility]) Carbon Dioxide Level 33 meq/L 21-32 [facility]) Anion Gap 4 meq/L 8-16 [facility]) Calcium Level 9.2 mg/dL 8.8-10.2 [facility] ([facility]) ID Date Data Source [id number] 10/27/2020 05:18:00 AM EST [facility] Name Value Range Interpretation Code Description Data Danuta rce(s) Supporting Document(s) SARS coronavirus 2 RNA [Presence] in Res piratory specimen by YENNI with probe detection NEGATIVE [facility] This lab was ordered by [facility] a nd reported by [facility]. ID Date Data Source [id number] 10/24/2020 08:53:02 AM EST [facility] Name Value Range Interpretation Code Description Data Danuta rce(s) Supporting Document(s) Progress Note [facility] BTPWKq3lIqBXPtRt31/SVJnmGENwy1QkQGlaUZx5RRgdSURgJ6UjJUX6gS0wKZY2YRpISmTlUfBsXUW5 [facility] [file] [id number]== ID Date Data Source [id number] 09/25/2020 03:06:00 PM EST [facility] ([facility]) Name Value Range Interpretation Code Description Data Danuta rce(s) Supporting Document(s) Hemoglobin 17.7 g/dL 13.5-17.5 [facility] ([facility]) Red Blood Count 6.04 10 4.30-6.10 [facility] ([facility]) White Blood Count 9.6 10 4.0-10.0 [facility] ([facility]) Mean Corpuscular Volume 92.1 fl 80.0-96.0 M [facility] ([facility]) Hematocrit 55.6 % 42.0-52.0 [facility] ([facility]) Mean Corpuscular Hemoglobin 29.3 pg 27.0-33.0 [facility] ([facility] ) Platelet Count, Automated 306 10 150-450 [facility] ([facility]) Mean Corpuscular HGB Conc 31.8 g/dL 32.0-36.5 [facility] ([facility] ) Red Cell Distribution Width 14.8 % 11.5-14.5 [facility] ([facility] ) Nucleated Red Blood Cell % 0.0 % 0-0 [facility] ([facility] ) ID Date Data Source [id number] 09/25/2020 03:06:00 PM EST [facility] ([facility]) Name Value Range Interpretation Code Description Data Danuta rce(s) Supporting Document(s) Creatinine For GFR 1.27 mg/dL 0.70-1.30 [facility] ([facility] ) Glucose, Fasting 141 mg/dL 70-100 [facility] ([facility] ) Blood Urea Nitrogen 21 mg/dL 7-18 [facility] ([facility]) Potassium Serum 3.8 meq/L 3.5-5.1 [facility] ([facility]) Sodium Level 138 meq/L 136-145 [facility] ([facility]) Glomerular Filtration Rate 59.9 [facility] ([facility] ) <content>Units are mL/min/1.73 m2</content>
<content></content>
<content>Chronic Kidney Disease Staging per NKF:</content>
<content></content>
<content>Stage I & II GFR >=60 Normal to Mildly Decreased</content>
<content>Stage III GFR 30- 59 Moderately Decreased</content>
<content>Stage IV GFR 15-29 Severely Decreased</content>
<content>Stage V GFR <15 Very Little GFR Left</content>
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
<content></content> Carbon Dioxide Level 32 meq/L 21-32 [facility] ([facility]) Anion Gap 4 meq/L 8-16 [facility] Chloride Level 102 meq/L 98-107 [facility] Calcium Level 9.2 mg/dL 8.8-10.2 [facility] ([facility]) ID Date Data Source [id number] 09/25/2020 03:06:00 PM EST [facility] ([facility]) Name Value Range Interpretation Code Description Data Danuta rce(s) Supporting Document(s) Testosterone [Mass/volume] in Serum or Plasma 522 ng/dL 241-827 [facility] ([facility]) NORMAL RANGES ARE FOR ADULT FEMALES (OVE R 15 YRS) AND MALES (OVER 19 YRS). FOR PEDIATRIC RANGES PLE ASE CONSULT LITERATURE. Thyroxine (T4) free [Mass/volume] in Serum or Plasma 0.90 ng/dL 0.76- 1.46 [facility] ([facility]) ID Date Data Source [id number] 09/18/2020 05:37:00 PM EST [facility] Name Value Range Interpretation Code Description Data Danuta rce(s) Supporting Document(s) Progress Note [facility] BGJPKv2dFwLISzXx93/FKZplVUClp7MbSLcxXNd1MYleREBbN5QySYW6sV8zASO8TJyMCgYwSuGkPiJs [facility] [file] 5IcC0+PHBmbJr/jBBmbJr/jBBmbJr/eVYmmqL6vL9lx+lAVGfmgw/zMsByLOfxOWH6rr5/MVD3nLw/Jose G [file] SpCgGL3LCSs= ID Date Data Source [id number] 09/18/2020 02:01:31 PM [facility] Name Value Range Interpretation Code Description Data Danuta rce(s) Supporting Document(s) [facility] JQTAXi0pYlIFSmZq80/MTQcxCXTkc6YsBXitOYs0WZacQKZyH3TbRWT2gX1rJIE2SXjHYrThBoSlEkEs lbm [file] ICAgICAgICAgICAgICAgICAgICAgICAgICAgICAgICAgICAgICAgICAgICAgICAgICAgICAgICAgICAg ICAgICAgICAgICAgICAgICAgICANCiAgICAgICAgICAgICAgICAgICAgICAgICAgICAgICAgICAgICAg ICAgICAgICAgICAgICAgICAgICAgICAgICAgICAgIC AgICAgICAgICAgICAgICAgICAgICAgICAgICAgICANCiAgICAgICAgICAgICAgICAgICAgICAgICAgIC AgICAgICAgICAgICAgICAgICAgICAgICAgICAgICAgICAgICAgICAgICAgICAgICAgICAgICAgICAgIC AgICAgICAgICAgICANCiAgICAgICAgICAgICAgICAg ICAgICAgICAgICAgICAgICAgICAgICAgICAgICAgICAgICAgICAgICAgICAgICAgICAgICAgICAgICAg ICAgICAgICAgICAgICAgICAgICAgICANCiAgICAgICAgICAgICAgICAgICAgICAgICAgICAgICAgICAg ICAgICAgICAgICAgICAgICAgICAgICAgICAgICAgIC AgICAgICAgICAgICAgICAgICAgICAgICAgICAgICAgICANCiAgICAgICAgICAgICAgICAgICAgICAgIC AgICAgICAgICAgICAgICAgICAgICAgICAgICAgICAgICAgICAgICAgICAgICAgICAgICAgICAgICAgIC AgICAgICAgICAgICAgICANCiAgICAgICAgICAgICAg ICAgICAgICAgICAgICAgICAgICAgICAgICAgICAgICAgICAgICAgICAgICAgICAgICAgICAgICAgICAg ICAgICAgICAgICAgICAgICAgICAgICAgICANCiAgICAgICAgICAgICAgICAgICAgICAgICAgICAgICAg ICAgICAgICAgICAgICAgICAgICAgICAgICAgICAgIC AgICAgICAgICAgICAgICAgICAgICAgICAgICAgICAgICAgICANCiAgICAgICAgICAgICAgICAgICAgIC AgICAgICAgICAgICAgICAgICAgICAgICAgICAgICAgICAgICAgICAgICAgICAgICAgICAgICAgICAgIC AgICAgICAgICAgICAgICAgICANCiAgICAgICAgICAg ICAgICAgICAgICAgICAgICAgICAgICAgICAgICAgICAgICAgICAgICAgICAgICAgICAgICAgICAgICAg ICAgICAgICAgICAgICAgICAgICAgICAgICAgICANCjw/uXMsK2fzvGQaaeC2F2qySd5YTi5DDI5uh1Ko HQQkMFswvmUuZozMEcXtVTOrBorJCvc7LQduRP6AvG CyE3NpX8RuYOnbLV3WFSCkWWHgtHFyTUUtYMMnXbM1WUStNOxaNA3EkFCoHUntGVYtCXGhYtKlSODhQI MjIKVyYGXhTSFGUPMhWPRoXyChUDSuSLRpET6SJOPiX554vrAfXr2KEd4XQvLmXW0rda3XXlEmYNCeIk sSBqc6HEorXM5QuYBvaDTiUmKxNXOYDmFqV8qks5Jj VsUrEPDRQTgfNE3Gi3JcxUVbQHy+Yh1ZTU4ms7KdNKqfLgKzMY0yzz9ZJDyZPxNmY1GzbWzuTQQamnC7 xMCqAYR0AVI4oCWaCDY6joSjPKnaSIHbPFTiJURyEzmgEdJxTJXuMbb4XKREYEmJWdVaY3Hut3KxTlY5 DZVdNuXdSUxsAJFnJlG4KT30dXqcJM6SERWfHGQsUP 23FVRhFVSyMg3TQv4LSdOiHC8adh2WSfSbQIBnLuhKFom6ALfsFL3WoXBcE5BzkUEdt4jPOqDoA0TFET XlJOKuDp0KEYQkQhPfTDMmYOqbCD1qSQXbDTUDwYmrwpA3TH7GHT0mzjEaDA2QKbTbUf6oMx0OWfEoH7 VsD0TbEHCgWSYQXYtwBB5RQRmrMW9pFI7Kt8PViYTe kK7arq5XFIQrAXUeNcjmdp7VTfroL9L4lHqlDLOdQjIcMCECTAgyYU8AAAZdXJI0IMWrKGMpHESBQrVy E63dEC8JV6Swl71eChV1PRYzDtOzTGxjEI23jHoxtsYtkNXfjSevBC7DQn5+DQplbmRvYmoNCnhyZWYN VyEgCdBOIpYaKNXmCNTcCUGaBxQ8GjZpIq9IDUGvZW QkLSXzKmMxEFQmPPVxOEcuFJAqWEM2QMAnPEVpBIQvZT7VWqOfFVDvQjM8XKqlYWUrLBUjqs8QUFWoTF UfTRP7TlKjCFOzYHAiGJdfBCPgBYHhDZL7JJDgPKVoBT4MYgAvANVvGWF5DlWnXXKqNIQvhk8ENWDvBM WnAmZiShCoSMZjWKQkOSjpVCZoFWZ8OJH5SYBcGQLo SS2TVkTrVRKzEQs1QPCjBDOmDOWmzl0UIPPrVEUyUHUwMVDtSALuOTPyHEvcASWqAXZdGLI8ZYOoQISh XU4WHnVkZEQmYVLeDSRhJMBxQTOohb4MXPCiXBDuYZp8AFQuIUPfXFIsYFgpDRUhLLA4ZHUwCCUjULTj TA6VPoJaMPLmWCe9EchnYLXbSRSpbo2UHPPrOWHmSm ujDHAqWGEkXHKbSEejYPQmLYO4Vxf8DYUoMHNqEK8TChHjZZXmRRw3JRUgGHDdZTMuye9PNONqGISfNM A6FARdBCVcYYGlVQjaFIIaDMNnPDJzVSNgCQCeNJ8YZnMlHLWxVkGiAcSsMUXwNFFkmn7YXIYdCYFrOQ IrAoJjLTYhOGIsQKsuWUWyPCLzWYS2GCVkBPGpVG4K HeQbQAMeQdUlKrUmKJHvDAXkga9GUXMfDEDgTjOsKXZaYXCsRLPiARvgYEQhIJXuQcv4UWOaAJEdTU7H AiZtGMWpQuP7RhTmUOSdSHLuuw4LMRIbJIHlDhv3PRCoJNAzHAQiAGfgVNAnZUQmGVWfLOBxMYBuEY8Z AjUeBWOpRcUlBsQmCWFmCQQwcf1JMFDlWGDeODJ1Nc CsPRGuOCFhHZwhJNUyURQ4RDR8AOSeFXUtXK4VOsXtTJUrTfXnNBtdYUFiQYHlqv1MFTKvUFWzHdRoGN EjOYGhMCPlFHk0jqNorBNuJIn5MP2YZ6WctoXxQoHZNl7Qh961ZEJ2XWZsEu5GT3isQq2nXNRfWYZMCj 8MYXu1HRRjJHD6RGWjJDX0HrHrAPmqOGB7NRDxEiC9 NjNjNmE+TRrxJXNyXhUeWQQuAgrrGlF0KIQ3RHAxOEF0Rwk3M6S7YB2vCHGEEo6+DQpzdGFydHhyZWYN FrE2VNd6IGqzKGYZFm2W ID Date Data Source [id number] 09/15/2020 06:04:04 PM [facility] Name Value Range Interpretation Code Description Data Danuta rce(s) Supporting Document(s) Consultation [facility] TDVBIz8iAzORTyRk68/ZVLtgYTUin6OvJWelFMe2QNogHUJiA4WdJBZ0hU1bEZY4LFlSOrXeWnBtKVZn lbm AeAkiDAjLtUJWhXixCZyXtMUzdElcikKMfCO5JoKB2XRCzJ04qKWOxCPBmD8DzAQS1DmR+Yb0FBQKxmW IkQI7YBswX4D0qf1yUZd1+tO1EBdwaybyKarmFWFln87xviuMqAwzseCwLdiflbSe3iLNP/bvSJ9daaI /kdBrFHC4PXd5DYhY7Q+9dcZUq/ymu3zxVMPvX/V1/ 9UNLXd+rv/8IpH0gebNpk7/vZFNOTcXTMsviJ44d0oSAZ0P/7jUnNHC6EIkvXhV59nUkjDh0gfArCl1Q yUs1iK+zTBPQ8B3odezalvVA0h7RF850Xw3/U/2h+xK9XjBmXSAC489wYKO1Wu4uHio7Tye2JuxAzNUB pXoyFZ72DjoM1h7bqn+kWubQSDkfpEhfpeKWROpGL/ cYfnMxfPBcYBqcORrGjt7qXDOPndot+oNXjE1wPe6ReA5n20ct4BD4lA2aRmkk0Y7PTx0YnzdlbgBaBY FNIvL3d2THPcRzg/fGc4nyCCq3Acn0dL2mcSUqb+8y+wLccOaQ1iKWHaDAFLujCe2TOPqvIB752XpPEy Q5FX/cDltFJDl5oskagAFH+EgoGKslJquwgNmAt58w XMYbdSRcYCdMkgSolXSKOEy1yOZgskkpzcj2tq0HEOJ9P2wm1iKejoqetdKMWBq9j7Y5Pxi61SlD9/WK OtH4JinEGpz9hfE+AFDEC9kgPk9a3cHg18TMpkN8JtlqSeXieyNvffq0hCLqKvcy214o9mBqs9p4LYX5 qw5ipoNJuzdWkNpHW6kvoCZ0clqHYS0Orsn6pgTMxs 0Qh5nhYpKRGBYg8tvpZsvn0xHan2+G17xrbPGdtGMpPFUtuio4b47rX2xoAdKtwvvLfCvIH/8upJ3XuG LiQXwxQMYpNBpTfyWJgcu258uZJUuRQFq+a5SayX+q4UR/fCG8es2GHYbndD0fhFMVPG4xD/XOPkegsZ 1v3ULILdfnWKF64ugbrWo0RJdwNoNd+7+rtu81tDs5 ltS5P3PtKlUI7xdIJuj/foT7m7SopN/loboyz1gLWwYJqyioDrcJ5HfW2tzoLSvqcz5YdpHfxwYO7+wl 7mMGvCJI6nKPbHq9Gs4nASipXXIU7SHKQ3zLCx6GnyzlgXVGaRmsLk/1JOUtiDEPk809q0WEBZWat85j rwJsYCMPyNRwDEgBMQuiyaRnxtXzzXCjqJ/FGzqWlW t6duVbGc9JjVU3Nq/cwL9Mk/z5bkltIp+rsw8JciEe4OMdmQw1Zvjzsfj5iVVw9FDUoMcYn2avJ0QceF WtzKpkvestxrPhP4tSmvwHolf2Otr6RkKvdcqEJNuzNpJb1MAzKNvZNy8Jlmt07TknOCmnZlJ/oQOOmy X1imRoF62z5WfHVdlyDsdTOR1z81Ov4XQH1ZYv/SV6 EnisTG6ioUXvxwGvfBQ987+vwG5cJwiPlBlywJCPDtBqX1SbfXF3n9PgxSptiN1iLW4B/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 [file] AgICAgICAgICAgICAgICAgICAgICAgICAgICAgICAgICAgICAgICAgICAgICAgICAgICAgICAgICAgIC AgICAgICAgICAgICAgICAgICAgICAgICAgDQogICAgICAgICAgICAgICAgICAgICAgICAgICAgICAgIC AgICAgICAgICAgICAgICAgICAgICAgICAgICAgICAg ICAgICAgICAgICAgICAgICAgICAgICAgICAgICAgICAgICAgDQogICAgICAgICAgICAgICAgICAgICAg ICAgICAgICAgICAgICAgICAgICAgICAgICAgICAgICAgICAgICAgICAgICAgICAgICAgICAgICAgICAg ICAgICAgICAgICAgICAgICAgDQogICAgICAgICAgIC AgICAgICAgICAgICAgICAgICAgICAgICAgICAgICAgICAgICAgICAgICAgICAgICAgICAgICAgICAgIC AgICAgICAgICAgICAgICAgICAgICAgICAgICAgDQogICAgICAgICAgICAgICAgICAgICAgICAgICAgIC AgICAgICAgICAgICAgICAgICAgICAgICAgICAgICAg ICAgICAgICAgICAgICAgICAgICAgICAgICAgICAgICAgICAgICAgDQogICAgICAgICAgICAgICAgICAg ICAgICAgICAgICAgICAgICAgICAgICAgICAgICAgICAgICAgICAgICAgICAgICAgICAgICAgICAgICAg ICAgICAgICAgICAgICAgICAgICAgDQogICAgICAgIC AgICAgICAgICAgICAgICAgICAgICAgICAgICAgICAgICAgICAgICAgICAgICAgICAgICAgICAgICAgIC AgICAgICAgICAgICAgICAgICAgICAgICAgICAgICAgDQogICAgICAgICAgICAgICAgICAgICAgICAgIC AgICAgICAgICAgICAgICAgICAgICAgICAgICAgICAg ICAgICAgICAgICAgICAgICAgICAgICAgICAgICAgICAgICAgICAgICAgDQogICAgICAgICAgICAgICAg ICAgICAgICAgICAgICAgICAgICAgICAgICAgICAgICAgICAgICAgICAgICAgICAgICAgICAgICAgICAg ICAgICAgICAgICAgICAgICAgICAgICAgDQogICAgIC AgICAgICAgICAgICAgICAgICAgICAgICAgICAgICAgICAgICAgICAgICAgICAgICAgICAgICAgICAgIC JzPKQfWCYiMPNjVHQkOEKwAQVrHEPaLMYlLMSeGWXaYNCzUIw2G2vfKEWeCBXwFW5mLGk1Yk4+DQoNCm SyAZC9ztEtyX3MPQ4we1GwZVsfHPXip5UiFMb0UO4H VLGxTAuaPC0NACmszg6BOSAbNMXqrBCTi4mzWgGpIDL1FFPdUycaUK5HYNEqO8uqdnWsSZMfHNMFTCup ZLSKOQyrOVVJEAEpQKWfEmVjYdAtMZLaXA9LRAYrU866kuAqCU3IPt2VBrTzKI0bsj0GXjOrRIKcJauL Bzh8NHrmJX1WqTKbaIIyLMIzILOULgIxU3fhr1LfZi HpGGUZHZgkXJ5Tb6KggMNoVRb+Xq3DLY6jc3FcBTdxHEHeIB1bhn5VTCoJPgZdY1MaxBbwRLWprcO4bV RlRHC4RJZzlGaxcCXXwcuhiW8gwTDghLy9MBWQTEOjoXKvAX8cHA5iODLuAAGwCqZ7AOGUZE6BHPGsAX IswDOcQJJyHZIQRG1NNMroLRX9QRPuihOmbYOdLHwc AA4MDZYwwuUfOzFqAQJNSAo+Bs4YPF0pz5SzKPphCTZbYI0usa0NZOlRFePjE5F1wILfQ6U5BZyrFn3V DVVsJUFdTlRzULGJPAibPY3LLF7icrR4MV6XxYIqRREpVCKpvCZkEBe6K85mnHLoSLmtPT2SKBZ+Ronny+ Ey2UBQXaPYSaBXIrOzThVULEMvIfJ1LdW2ZJn2WaX3 OhAB84dGhbqjDtBIkaYM2XBI2nUXBrCEPMEN3GbTOamV8kxdJkKeQoTWWTXbVaU44brIQdSPItDNTqVI XoQw0LOYRyA9KuzhNulDlupqMmRURgQFMCUF6GQKkmfdEqlVDrcRfkRA16mCvxMF4GVa2YTmPkZF2nng 3LxYXrGw5WZDLuPd4NCXOsELBwPMWfPCG2DFIdVlLm TZgyMYTeDCZeDZZ5JAMxTVAgJB9RKxZkVTJzZpN5ROthFPVtYDYuar4UZADeIJFbDiOsMHPoDAYrMQZg VBebJFGjRTKbOKJ0BKUcPIQhSI5MUjPbMEAlSEEbPUAyEAUiJVTqvt3EPMJnTMJcKWUzVyVrNLUuNUBy KIomYETwQEI7ZvM2CROkFPKfUH4RUsZkNOCoQEO9Fh PmVWWaESOiec2EKGBcTXDyIVVsYMGcWHOcNPPeRColLSNyEPJ8SXS4BJOePBTcHY6VPrZuCFPzMJS2EZ ddKILoFFFglh7LMYBhHUDjNIr4NKBwDWKzDBEvYWcqUOFfUFJvYyrvRNNrQLAeRU5OMrSaPLCsWNI1TX fyJGCvJBTgoe3QYRQzLUWhPvw7XOIwTQMqUBTqIYwm FYFgHAT2LVS2CRLwJKIoAO0AMtKhTNKwPUZsQsyyDCFqRITwob6IJKQqCQSpFRC2CYCqYMSxLKNpPMwy VWVtBVH3WMBuOEPxDRSrTB9GRhCyNWPuIZA9XOkeEBZrEWSdiw7PLXUcZIQuAkC2SMVuNWZaEAGjMGmm BZTyWEE7LGV9SHQpQBBpLX8ZKxUyTSKhSXovDusqAI RaWLQvrk3IKWEsJBYsZPJeRlEwHDClWKIgMSusQGNpVKH0CtHwBUKePFNaBI1BJqXySRNwBfn8ODAlKZ WsYYInct2GUVZmUQBeBCO6YEXgILDzFVOzGEngKHZfPAE9ZaS8RZMgGDLcGW7FUeAxPXElHcCyKyaiRW WtLAEiuw8DPDHpAWPtPPR6MtJsAOFsFTJnAYxaEKCs BZFcRfT2UHVuWDWnTK1DYkMfEXKjMtFjFyjqAYKwQVDdjz9RIGNeHFOxHeEaRxIlCHOlVOJhRGwcGDSt FCBqFoDySDXhMYYxGW3EZhNwSVEyIkN2JOZeAYTrRKOndb3DsYJmlSqnbp2GZEiMMd0GmNdsLRQ9JXay Vd6zpISrDBSpVWUNSf5CwaQvVIWzXWRUEUpdQIUbFX FrJXA6WjIwCeH9LOEgFJdaHYB9HMHuWlCdTQUhEJv5UjE6RvJlAwqrBGJuGYMlUOTmQCEkOlCkWeBnAC RhZmMwODc+JS6jILr+Vo0Hf6JlqyZ0isRkGZktCby5Aa8CZAUSE1CLIc== ID Date Data Source [id number] 09/14/2020 11:39:44 PM [facility] Name Value Range Interpretation Code Description Data Danuta rce(s) Supporting Document(s) ED Provider Note [facility] WZJKJb2fWqQCFpSu14/YGWelIKNae7LpFBtgNTj2XVbvWTSqK8PtOPB5bH3nOOI7DWjVZjDdZeLlFQM8 lbm [file] [id number]= ID Date Data Source [id number] 09/14/2020 08:12:39 PM [facility] MR BRAIN WITH AND WITHOUT CONTRAST [id number] FINAL RESULTInterpreted by:Zully Hauser DOINDICATION: known pituitary [...] rce(s) Supporting Document(s) ID Date Data Source [id number] 09/14/2020 08:12:39 PM [facility] MR ORBIT WITH AND WITHOUT CONTRAST [id number] FINAL RESULTInterpreted by:Zully Hauser DOINDICATION: known pituitary [...] rce(s) Supporting Document(s) ID Date Data Source [id number] 09/14/2020 06:08:58 PM [facility] Name Value Range Interpretation Code Description Data Danuta rce(s) Supporting Document(s) ED Provider Note [facility] VZQMPa9yBrHANeUf61/RVElqHBCgo5QoEDpmOJg3FSpcOCXlX4NrMGO8lE9eEGY6KFwMOdWzXpOdTXL3 lbm [file] liGLqznm+lF9yOUrqSSOw6TMB1RsQdUuzklLDqg/Quote Clerk [file] [id number] ID Date Data Source [id number] 09/14/2020 02:14:08 PM [facility] CT HEAD WITHOUT CONTRAST [id number] RESU LTInterpreted by:Zully Hauser DOINDICATION: headache.TECHNIQUE: Multidetector [...] Name Value Range Interpretation Code Description Data [facility] rce(s) Supporting Document(s) ID Date Data Source [id number] 09/14/2020 01:24:04 PM [facility] Name Value Range Interpretation Code Description Data [facility] rce(s) Supporting Document(s) Leukocytes [#/volume] in Blood by Automated count 8.6 10*3/uL 4-10 [facility] Erythrocytes [#/volume] in Blood by Automated count 5.26 10*6/uL 4.6- 6.1 [facility] Hemoglobin [Mass/volume] in Blood 15.8 g/dL 13.5-18 [facility] Hematocrit [Volume Fraction] of Blood by Automated count 46.7 % 4 1-53 [facility] Erythrocyte mean corpuscular volume [Entitic volume] by Auto mated count 88.8 fL 80-96 [facility] Erythrocyte mean corpuscular hemoglobin [Entitic mass] by Automated count 30.0 pg 27-33 [facility] Erythrocyte mean corpuscular hemoglobin concentration [Mass/volume] [facility]8 [facility] width [Ratio] by Automated count 15.0 % 11.5-14.[address] [facility] Platelets [#/volume] in Blood by Automated count 231 10*3/uL 150-400 [facility] Differential cell count method - Blood [facility] Neutrophils/100 leukocytes in Blood by Automated count 78 % [facility] Lymphocytes/100 leukocytes in Blood by Automated count 17 % [facility] Monocytes/100 leukocytes in Blood by Automated count 5 % [facility] Eosinophils/100 leukocytes in Blood by Automated count 0 % [facility] Basophils/100 leukocytes in Blood by Automated count 0 % [facility] Neutrophils [#/volume] in Blood by Automated count 6.67 10*3/uL 1.8-[address] [facility] Lymphocytes [#/volume] in Blood by Automated count 1.41 10*3/uL 1.2-[address] [facility] Monocytes [#/volume] in Blood by Automated count 0.43 10*3/uL 0-0.8 [facility] Eosinophils [#/volume] in Blood by Automated count 0.02 10*3/uL 0-0.5 [facility] Basophils [#/volume] in Blood by Automated count 0.03 10*3/uL 0-0.2 [facility] Nucleated erythrocytes/100 leukocytes [Ratio] in Blood by Automated count 0 /100{WBCs} 0-0 [facility] ID Date Data Source [id number] 09/14/2020 01:38:19 PM [facility] Name Value Range Interpretation Code Description Data Danuta rce(s) Supporting Document(s) Bicarbonate [Moles/volume] in Serum 27 mmol/L 22-29 [facility] Chloride [Moles/volume] in Serum or Plasma 106 mmol/L 98-107 [facility] Creatinine [Mass/volume] in Serum or Plasma 1.01 mg/dL 0.70-1.20 [facility] Glucose [Mass/volume] in Serum or Plasma 100 mg/dL 70-140 [facility] Potassium [Moles/volume] in Serum or Plasma 3.6 mmol/L 3.4-5.1 [facility] Sodium [Moles/volume] in Serum or Plasma 144 mmol/L 136-145 [facility] Urea nitrogen [Mass/volume] in Serum or Plasma 16 mg/dL 8-23 [facility] Anion gap 3 in Serum or Plasma 11 mmol/L 8-15 [facility] Osmolality of Serum or Plasma by calculation 299 mosm/kg 275-300 [facility] Creatinine/Urea nitrogen [Mass Ratio] in Serum or Plasma 16 [facility] Calcium [Mass/volume] in Serum or Plasma 8.8 mg/dL 8.8-10.2 [facility] Glomerular filtration rate/1.73 sq M pre dicted among non-blacks [Volume Rate/Area] in Serum or Plasma by Creatinine-based formula (MDRD) 74 mL/min/1.73m2 >60 [facility] Glomerular filtration rate/1.73 sq M pre dicted among blacks [Volume Rate/Area] in Serum or Plasma by Creatinine-based formula (MDRD) 86 mL/min/1.73m2 >60 [facility] ID Date Data Source [id number] 09/14/2020 04:55:40 PM [facility] Name Value Range Interpretation Code Description Data Danuta rce(s) Supporting Document(s) C reactive protein [Mass/volume] in Serum or Plasma 14.7 mg/L <8.[address] [facility] ID Date Data Source [id number] 09/14/2020 05:11:26 PM [facility] Name Value Range Interpretation Code Description Data Danuta rce(s) Supporting Document(s) Erythrocyte sedimentation rate 16 mm/hr <20 [facility] ID Date Data Source [id number] 09/14/2020 07:21:21 PM [facility] Name Value Range Interpretation Code Description Data Danuta rce(s) Supporting Document(s) Color of Urine [facility] Clarity of Urine [facility] Specific gravity of Urine by Refractometry automated 1.035 1.003 -1.030 [facility] pH of Urine by Automated test strip 5.0 5.0-8.0 [facility] Protein [Mass/volume] in Urine by Automated test strip 100 mg/dL Neg [facility] Glucose [Mass/volume] in Urine by Automated test strip Neg [facility] Ketones [Mass/volume] in Urine by Automated test strip 5 mg/dL Neg [facility] Bilirubin.total [Presence] in Urine by Automated test strip Negative [facility] Hemoglobin [Presence] in Urine by Automated test strip Neg [facility] Leukocyte esterase [Presence] in Urine by Automated test strip Negative [facility] Nitrite [Presence] in Urine by Automated test strip Neg[facility] Leukocytes [#/area] in Urine sediment by Automated count 9 /HPF 0 -[address] [facility] Erythrocytes [#/area] in Urine sediment by Automated count 19 /HPF 0-[address] [facility] Epithelial cells.squamous [#/area] in Urine sediment by Auto mated count 1 /HPF None [facility] Mucus [#/area] in Urine sediment by Microscopy low power field None [facility] Crystals.amorphous [#/area] in Urine sediment by Microscopy high power field None [facility] ID Date Data Source [id number] 09/08/2020 03:19:00 PM EST [facility] ([facility]) Name Value Range Interpretation Code Description Data Danuta rce(s) Supporting Document(s) Prostate specific Ag [Mass/volume] in Serum or Plasma 2.41 ng/mL [facility] This assay was performed on the Siemens Dimension EXL using the B- Galactosidase/CPRG methodology and should not be compared interchangeably with other methods. The PSA should not be used alone as a screening test for the presence or absence of malignant disease. ID Date Data Source [id number] 09/08/2020 03:19:00 PM EST [facility] ([facility]) Name Value Range Interpretation Code Description Data Danuta rce(s) Supporting Document(s) Glucose [Mass/volume] in Serum or Plasma 127 mg/dL 74-99 [facility] ([facility]) 100-125 mg/dL PRE-DIABETES/FASTING >126 mg/dL DIABETES/FASTING Urea nitrogen [Mass/volume] in Serum or Plasma 14 mg/dL 7-18 [facility] ([facility]) Creatinine 1.1 mg/dL 0.6-1.3 [facility] Sodium [Moles/volume] in Serum or Plasma 145 meq/L 136-145 [facility] ([facility]) Potassium [Moles/volume] in Serum or Plasma 3.5 meq/L 3.5-5.1 [facility] Chloride [Moles/volume] in Serum or Plasma 106 meq/L 98-107 [facility] Carbon dioxide, total [Moles/volume] in Serum or Plasma 32 meq/L 21 -32 [facility] Calcium [Mass/volume] in Serum or Plasma 8.4 mg/dL 8.5-10.1 [facility] Alkaline phosphatase isoenzyme [Units/volume] in Serum or Pl asma 113 mg/dL 46-116 [facility] Total Bilirubin 0.4 mg/dL 0.2-1.0 [facility] ([facility]) Aspartate aminotransferase [Enzymatic activity/volume] in Serum or Plasma 15 U/L 15-37 [facility] ([facility] ) Alanine aminotransferase [Enzymatic activity/volume] in Seru m or Plasma 24 U/L 12-78 [facility] ([facility]) Albumin [Mass/volume] in Serum or Plasma 3.4 g/dL 3.4-5.0 [facility] ([facility]) Proteinase 3 Ab [Units/volume] in Serum 6.2 g/dL 6.4-8.2 [facility] A/G Ratio 1.21 CALC 1.00-1.90 [facility] (Formerly named [facility]) Glomerular filtration rate/1.73 sq M pre dicted among non-blacks [Volume Rate/Area] in Serum or Plasma by Creatinine-based formula (MDRD) Laboratory test result [facility] Glomerular filtration rate/1.73 sq M pre dicted among blacks [Volume Rate/Area] in Serum or Plasma by Creatinine-based formula (MDRD) Laboratory test result [facility]) <content>CHRONIC KIDNEY DISEASE STAGING PER NKF</content>
<content></content>
<content>STAGE I & II GFR >= 60 NORMAL TO MILDLY DECREASED</content>
<content>STAGE III GFR 30-59 MODERATELY DECREASED</content>
<content>STAGE IV GFR 15-29 SEVERELY DECREASED</content>
<content>STAGE V GFR <15 VERY LITTLE GFR LEFT</content>
<content>ESRD GFR <15 ON WASHER [employer]ACHINE [employer]PER[employer]</content>
<content></content> ID Date Data Source [id number] 09/08/2020 03:19:[address] [facility] Name Value Range Interpretation Code Description Data Danuta rce(s) Supporting Document(s) Leukocytes [#/volume] in Blood by Automated count 9.5 x10*3/UL 4.1-10 .9 [facility] ([facility]) Erythrocytes [#/volume] in Blood by Automated count 5.31 x10*6/UL 4.2 0-6.30 [facility] ([facility]) Hemoglobin [Mass/volume] in Blood 15.8 g/dL 12.0-18.0 [facility] Hematocrit [Volume Fraction] of Blood by Automated count 46.9 % 3 7.0-51.0 [facility] ([facility]) MCV 88.2 fL 80.0-97.0 [facility] MCH 29.8 pg 26.0-32.0 [facility] MCHC 33.7 g/dL 31.0-38.0 [facility] Erythrocyte distribution width [Ratio] by Automated count 14.1 % 11.6-13.7 [facility] ([facility]) Platelets [#/volume] in Blood by Automated count 256 x10*3/UL 140-440 [facility] ([facility]) MPV 9.0 FL 7.8-11.0 [facility] Lymph % 15.8 % 10.0-58.5 [facility] Mid % 4.2 % 1.7-9.3 [facility] Neut % 80.0 % 37.0-92.0 [facility] Lymph # 1.5 x10*3/UL 0.6-4.1 [facility] ([facility]) Mid # 0.4 x10*3/UL 0.1-0.6 [facility] ([facility]) Neut # 7.6 x10*3/UL 2.0-7.8 [facility] ([facility]) ID Date Data Source [id number] 06/09/2020 10:07:00 AM EDT [facility] ([facility] ) Name Value Range Interpretation Code Description Data Danuta rce(s) Supporting Document(s) Creatinine For GFR 1.24 mg/dL 0.70-1.30 [facility] ([facility] ) Blood Urea Nitrogen 12 mg/dL 7-18 [facility] (No [facility] ) Glucose, Fasting 80 mg/dL 70-100 [facility] ([facility] ) Glomerular Filtration Rate Laboratory test [facility] ) <content>Units are mL/min/1.73 m2</content>
<content></content>
<content>Chronic Kidney Disease Staging per NKF:</content>
<content></content>
<content>Stage I & II GFR >=60 Normal to Mildly Decreased</content>
<content>Stage III GFR 30- 59 Moderately Decreased</content>
<content>Stage IV GFR 15-29 Severely Decreased</content>
<content>Stage V GFR <15 Very Little GFR Left</content>
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
<content></content> Sodium Level 142 meq/L 136-145 [facility] Carbon Dioxide Level 30 meq/L 21-32 [facility] Potassium Serum 4.5 meq/L 3.5-5.1 [facility] ([facility]) Chloride Level 107 meq/L 98-107 [facility] Calcium Level 9.0 mg/dL 8.8-10.2 [facility] Anion Gap 5 meq/L 8-16 [facility] Procedure Social History Code Duration Value Status Description Data Source(s ) Smoking 04/09/2021 12:00:00 AM EDT Patient has never smoked co mpleted Patient has never smoked [facility] ([facility]) Smoking 03/20/2021 04:05:01 PM EDT Never smoked tobacco (findi ng) completed Never smoked tobacco (finding) [place] (Malik Guevara MD [facility]) Alcohol intake 12/16/2020 12:00:00 AM EST Current non-d manoj of alcohol (finding) completed Current non-drinker of alcohol (finding) [facility] Alcohol intake 09/18/2020 12:00:00 AM EST Current non-d manoj of alcohol (finding) completed Current non-drinker of alcohol (finding) [facility] Vital Signs ID Date Data Source UNK Name Value Range Interpretation Code Description Data Source(s) Systolic blood pressure 128 mm[Hg] 128 mm[Hg] M [facility] ([facility]) Diastolic blood pressure 89 mm[Hg] 89 mm[Hg] [facility] ([facility]) Heart rate 72 /min 72 /min [facility] ([facility]) Body height 64 [in_i] 64 [in_i] [facility] ([facility]) 5'4" Body weight 194.00 [lb_av] 194.00 [lb_av] [facility] ([facility]) Body mass index (BMI) [Ratio] 33.3 kg/m2 33.3 k g/m2 [facility] ([facility]) Body weight 184.00 [lb_av] 184.00 [lb_av] [facility] ([facility]) Systolic blood pressure 136 mm[Hg] 136 mm[Hg] M [facility] ([facility]) Diastolic blood pressure 86 mm[Hg] 86 mm[Hg] [facility] ([facility]) Heart rate 104 /min 104 /min [facility] ([facility]) Body height 64 [in_i] 64 [in_i] [facility] ([facility]) 5'4" Body mass index (BMI) [Ratio] 31.6 kg/m2 31.6 k g/m2 [facility] ([facility]) Body weight 180.00 [lb_av] 180.00 [lb_av] [facility] ([facility]) Respiratory rate 18 /min 18 /min [facility] ( [facility]) Systolic blood pressure 136 mm[Hg] 136 mm[Hg] M [facility] ([facility]) Diastolic blood pressure 80 mm[Hg] 80 mm[Hg] [facility] ([facility]) Heart rate 112 /min 112 /min [facility] ([facility]) Body temperature 96.4 [degF] 96.4 [degF] [facility] ([facility]) Body height 64.5 [in_i] 64.5 [in_i] [facility] ([facility]) 5'4.50" Body weight 183.25 [lb_av] 183.25 [lb_av] [facility] ([facility]) Body mass index (BMI) [Ratio] 31.0 kg/m2 31.0 k g/m2 [facility] ([facility] ) Oxygen saturation in Arterial blood by Pulse oximetry 98 % 98 % [facility] ([facility]) Diastolic blood pressure 80 mm[Hg] 80 mm[Hg] [facility] ([facility]) Body height 64 [in_i] 64 [in_i] [facility] ([facility]) 5'4" Body weight 185.00 [lb_av] 185.00 [lb_av] [facility] T ([facility]) Body mass index (BMI) [Ratio] 31.8 kg/m2 31.8 k g/m2 [facility] ([facility]) Systolic blood pressure 126 mm[Hg] 126 mm[Hg] [facility] Heart rate 78 /min 78 /min [facility] ([facility]) Diastolic blood pressure 83 mm[Hg] 83 mm[Hg] [facility] ([facility]) per home readings Heart rate 77 /min 77 /min [facility] ([facility]) Systolic blood pressure 127 mm[Hg] 127 mm[Hg] M [facility] ([facility]) per home readings Body weight 195.00 [lb_av] 195.00 [lb_av] [facility] T ([facility]) Body temperature 98.9 [degF] 98.9 [degF] [facility] ([facility]) Respiratory rate 16 /min 16 /min [facility] ( [facility]) Systolic blood pressure 150 mm[Hg] 150 mm[Hg] M [facility] ([facility]) Diastolic blood pressure 90 mm[Hg] 90 mm[Hg] [facility] ([facility]) Systolic blood pressure 120 mm[Hg] 120 mm[Hg] M [facility] ([facility]) Diastolic blood pressure 80 mm[Hg] 80 mm[Hg] [facility] Heart rate 80 /min 80 /min [facility] ([facility]) Body height 64 [in_i] 64 [in_i] [facility] 5'4" Body weight 198.00 [lb_av] 198.00 [lb_av] [facility] T ([facility]) Oxygen saturation in Arterial blood by Pulse oximetry 97 % 97 % [facility] Body mass index (BMI) [Ratio] 34.0 kg/m2 34.0 k g/m2 [facility] ([facility]) ID Date Data Source [id number] 10/24/2020 08:53:02 AM [facility] Name Value Range Interpretation Code Description Data Source(s) WEIGHT RECORDED 195 lb 195 lb [facility] ID Date Data Source [id number] 09/19/2020 05:43:12 AM [facility] Name Value Range Interpretation Code Description Data Source(s) WEIGHT RECORDED 195 lb 195 lb [facility] Body height Measured 64 in 64 in [facility] Patient Treatment Plan of Care Planned Activity Planned Date Details Description Data Source (s) Ondansetron 4 MG Oral Tablet 09/14/2020 12:55:27 PM [facility] Oxycodone Hydrochloride 5 MG Oral Tablet 09/14/2020 12:00:00 AM [facility]
[2021-08-04 16:15] LABS: CREATININE,RANDOM URINE 90.4 MG/DL
[2021-08-04 17:21] VITALS: BP 138/79
--- NOTE | 2021-08-05 13:32 | ECGEPIP ---
[facility] - ED Test Date: 2021-08-04 Pat Name: AUGUSTINE PARKER Department: Room: - Gender: Male [employer]inder: RASHAAD : 1950 Requested By: LAUREN ENGLE Order Number: [id number] Reading MD: Alyssa Wiggins Measurements Intervals [place] Rate: 92 P: 23 WV: 132 QRS: 16 QRSD: 74 T: 61 QT: 360 QTc: 445 Interpretive Statements Normal sinus rhythm Cannot rule out Inferior infarct , age undetermined delayed r progression decreased rate 03/05/21 Electronically Signed on 08-05-2021 13:31:51 EDT by Alyssa Wiggins
== END 2021-08-04 17:30 | disposition home or self-care (01) ==
LOC: M ED 12:53
DX: E86.0 Dehydration (principal); I10 Essential (primary) hypertension; E03.9 Hypothyroidism, unspecified; F41.9 Anxiety disorder, unspecified; Z79.82 Long term (current) use of aspirin; Z79.899 Other long term (current) drug therapy; Z88.0 Allergy status to penicillin

== ENCOUNTER → 2021-10-15 | Outpatient (REF) | payer OTHER ==
[~2021-10-15] MED LIST changes: +DEXA4TA; +OXYC-517; +TEMO20CA21
[2021-10-15 17:05] LABS: BLOOD UREA NITROGEN 24 MG/DL (7-18); CALCIUM LEVEL 8.6 MG/DL (8.8-10.2); CARBON DIOXIDE LEVEL 24 MEQ/L (21-32); CHLORIDE LEVEL 103 MEQ/L (98-107); CREATININE FOR GFR 1.23 MG/DL (0.70-1.30); GLOMERULAR FILTRATION RATE > 60.0 (>42); GLUCOSE, FASTING 352 MG/DL (70-100); POTASSIUM SERUM 4.3 MEQ/L (3.5-5.1); SODIUM LEVEL 137 MEQ/L (136-145)
[2021-10-15 17:06] LABS: OSMOLALITY SERUM 308 MOSM/KG (280-301)
== END ==
LOC: M LABDRWAD 16:14
PROVIDERS: ATTEND Internal Medicine Endocrinology, Diabetes & Metabolism
DX: D49.7 Neoplasm of unspecified behavior of endocrine glands and other parts of nervous system (principal); E03.9 Hypothyroidism, unspecified

== ENCOUNTER → 2021-11-16 | Outpatient (REF) | payer OTHER ==
[~2021-11-16] MED LIST changes: -LISI10TA15 PO; +LISI10TA24 PO; -OMEP-221 PO; +OMEP40CA5 PO; +POTA-151 PO; -POTA20TA6 PO
== END ==
LOC: M LAB REF 16:11
PROVIDERS: ATTEND Family Medicine
DX: E87.1 Hypo-osmolality and hyponatremia (principal)

== ENCOUNTER → 2021-12-18 | Outpatient (REF) | payer OTHER ==
[~2021-12-18] MED LIST changes: -D31000TA2 PO; +VITA100093 PO
[2021-12-18 17:58] LABS: BLOOD UREA NITROGEN 20 MG/DL (7-18); CALCIUM LEVEL 8.6 MG/DL (8.8-10.2); CARBON DIOXIDE LEVEL 27 MEQ/L (21-32); CHLORIDE LEVEL 106 MEQ/L (98-107); CREATININE FOR GFR 1.21 MG/DL (0.70-1.30); FREE T4 1.06 NG/DL (0.76-1.46); GLOMERULAR FILTRATION RATE > 60.0 (>42); GLUCOSE, FASTING 220 MG/DL (70-100); POTASSIUM SERUM 4.3 MEQ/L (3.5-5.1); SODIUM LEVEL 140 MEQ/L (136-145)
[2021-12-18 19:09] LABS: OSMOLALITY SERUM 297 MOSM/KG (280-301)
== END ==
LOC: M LABDRWAD 17:17
PROVIDERS: ATTEND Internal Medicine Endocrinology, Diabetes & Metabolism
DX: D49.7 Neoplasm of unspecified behavior of endocrine glands and other parts of nervous system (principal); E03.9 Hypothyroidism, unspecified

== ENCOUNTER → 2022-01-27 | Outpatient (CLI) | payer OTHER ==
[2022-01-27 16:36] LABS: BLOOD UREA NITROGEN 28 MG/DL (7-18); CALCIUM LEVEL 9.1 MG/DL (8.8-10.2); CARBON DIOXIDE LEVEL 24 MEQ/L (21-32); CHLORIDE LEVEL 103 MEQ/L (98-107); CREATININE FOR GFR 0.94 MG/DL (0.70-1.30); FREE T4 1.08 NG/DL (0.76-1.46); GLOMERULAR FILTRATION RATE > 60.0 (>42); GLUCOSE, FASTING 398 MG/DL (70-100); POTASSIUM SERUM 4.3 MEQ/L (3.5-5.1); SODIUM LEVEL 140 MEQ/L (136-145)
[2022-01-27 16:55] LABS: OSMOLALITY SERUM 310 MOSM/KG (280-301)
== END ==
LOC: M ADAMS 13:09
PROVIDERS: ATTEND Internal Medicine Endocrinology, Diabetes & Metabolism
DX: D49.7 Neoplasm of unspecified behavior of endocrine glands and other parts of nervous system (principal); E03.9 Hypothyroidism, unspecified

== ENCOUNTER 2022-02-02 08:59 | Inpatient (IN) | payer OTHER ==
[~2022-02-02] VITALS: Ht 172.7 cm; Wt 84.0 kg
[~2022-02-02 08:59] MED LIST changes: +BACTDSTA PO; +BASA100I SC; -DEXA4TA; +DEXA4TA PO; +LEVO750T13 PO
[2022-02-02] MEDS ORDERED: LEVO750T13 PO (10:55)
[2022-02-02] MEDS ORDERED: BASA100I SC (10:55)
[2022-02-02] MEDS ORDERED: OYST1TAB PO (11:05)
[2022-02-02] MEDS ORDERED: MELA5TAB21 PO (11:05)
[2022-02-02 11:10] LABS: HEMATOCRIT 48.1 % (42.0-52.0); HEMOGLOBIN 16.4 g/dl (13.5-17.5); MEAN CORPUSCULAR HEMOGLOBIN 29.8 pg (27.0-33.0); MEAN CORPUSCULAR HGB CONC 34.1 g/dl (32.0-36.5); MEAN CORPUSCULAR VOLUME 87.3 fl (80.0-96.0); PLATELET COUNT, AUTOMATED 81 10^3/uL (150-450); RED BLOOD COUNT 5.51 10^6/uL (4.30-6.10); WHITE BLOOD COUNT 7.1 10^3/uL (4.0-10.0)
[2022-02-02] MEDS ORDERED: HOME MED LIST COMPLETE! XX SCH (11:10)
[2022-02-02 11:33] LABS: ATYPICAL LYMPH 3 % (0-5); LYMPHOCYTES 5 % (16-44); NEUTROPHILS 92 % (28-66); PLATELET ESTIMATE DECREASED (NORMAL)
[2022-02-02 11:46] LABS: RSV AMPLIFICATION NEGATIVE (NEGATIVE)
[2022-02-02 11:59] LABS: ALBUMIN 2.5 GM/DL (3.2-5.2); ALT/SGPT 180 U/L (12-78); BILIRUBIN,DIRECT 0.4 MG/DL (0.0-0.2); BILIRUBIN,TOTAL 0.7 MG/DL (0.2-1.0); BLOOD UREA NITROGEN 18 MG/DL (7-18); CARBON DIOXIDE LEVEL 29 MEQ/L (21-32); CHLORIDE LEVEL 101 MEQ/L (98-107); CREATININE FOR GFR 0.72 MG/DL (0.70-1.30); GLOMERULAR FILTRATION RATE > 60.0 (>42); GLUCOSE, FASTING 381 MG/DL (70-100); POTASSIUM SERUM 3.6 MEQ/L (3.5-5.1); SODIUM LEVEL 137 MEQ/L (136-145); THYROID STIMULATING HORMONE < 0.005 uIU/ML (0.358-3.740); TOTAL PROTEIN 4.7 GM/DL (6.4-8.2)
[2022-02-02] MEDS ORDERED: ACETAMINOPHEN 500 MG TAB PO PRN (14:50)
[2022-02-02] MEDS ORDERED: GLUCOSE 4GM CHEW TABLET PO PRN (14:50)
[2022-02-02] MEDS ORDERED: DEXTROSE 50% 50 ML SYRINGE IV PRN (14:50)
[2022-02-02] MEDS ORDERED: GLUCAGON INJ 1MG VIAL SC PRN (14:50)
[2022-02-02] MEDS: HumaLOG INSULIN (NovoLOG) PER UNIT SC SCH ×2 (18:04→20:50)
[2022-02-02] MEDS: NS 1,000 ML IV SCH (18:04)
[2022-02-02 19:04] VITALS: BP 117/79
[2022-02-02] MEDS: LEVEMIR (INSULIN DETEMIR) 1 UNITS/0.01ML SC SCH (20:16)
[2022-02-02] MEDS: clonazePAM 1 MG TAB PO SCH (20:17)
[2022-02-02] MEDS: ASPIRIN 81MG ENTERIC TABLET PO SCH (20:17)
[2022-02-02] MEDS: POTASSIUM CHLORIDE 10MEQ SR TABLET PO SCH (20:17)
[2022-02-02] MEDS: OMEPRAZOLE 20MG CAP PO SCH (20:17)
[2022-02-02] MEDS: ENOXAPARIN 40MG/0.4ML SYRINGE (J1650 PER 10MG) SC SCH (20:17)
[2022-02-02] MEDS: MAGNESIUM OXIDE 400MG TAB (MAG-OX) PO SCH (20:18)
[2022-02-02] MEDS: OYSTER SHELL CALCIUM 500 MG TAB PO SCH (20:18)
[2022-02-02] MEDS: QUEtiapine FUMARATE 25 MG TAB PO SCH (20:18)
[2022-02-02] MEDS: busPIRone 10 MG TAB PO SCH (20:18)
[2022-02-02] MEDS: DESMOPRESSIN ACETATE 0.1 MG TAB PO SCH (22:03)
[2022-02-02] MEDS: LIOTHYRONINE 25 MCG TAB PO SCH (22:03)
[2022-02-02] MEDS: RAMELTEON 8 MG TAB (ROZEREM) PO PRN (22:03)
[2022-02-03] MEDS ORDERED: PREGABALIN 100 MG CAP (LYRICA) PO ONE (01:00)
[2022-02-03] MEDS: NS 1,000 ML IV SCH (02:35)
[2022-02-03] MEDS: clonazePAM 1 MG TAB PO ONE ×2 (04:46→05:15)
[2022-02-03] MEDS: LEVOTHYROXINE 100MCG TABLET (0.1MG) PO SCH ×2 (04:46→05:16)
[2022-02-03 05:00] VITALS: BP 143/98
[2022-02-03] MEDS ORDERED: OLANZapine INTRAMUSCULAR 10MG VIAL IM ONE (06:00)
[2022-02-03 06:15] LABS: VENOUS HCO3 26.7 MEQ/L (23.0-27.0); VENOUS O2 SATURATION 98.9 % (60.0-80.0); VENOUS PARTIAL PRESSURE CO2 34.4 mmHg (38.0-50.0); VENOUS PARTIAL PRESSURE O2 146.5 mmHg (30.0-50.0); VENOUS PH 7.508 UNITS (7.330-7.430); VENOUS STANDARD HCO3 28.1 MEQ/L; VENOUS TOTAL CO2 27.8 MEQ/L (24.0-28.0)
[2022-02-03 06:24] LABS: HEMATOCRIT 45.4 % (42.0-52.0); HEMOGLOBIN 15.6 g/dl (13.5-17.5); MEAN CORPUSCULAR HEMOGLOBIN 30.1 pg (27.0-33.0); MEAN CORPUSCULAR HGB CONC 34.4 g/dl (32.0-36.5); MEAN CORPUSCULAR VOLUME 87.5 fl (80.0-96.0); RED BLOOD COUNT 5.19 10^6/uL (4.30-6.10); WHITE BLOOD COUNT 6.9 10^3/uL (4.0-10.0)
[2022-02-03 06:25] LABS: PLATELET COUNT, AUTOMATED 79 10^3/uL (150-450)
[2022-02-03 06:52] LABS: BLOOD UREA NITROGEN 16 MG/DL (7-18); CALCIUM LEVEL 8.1 MG/DL (8.8-10.2); CARBON DIOXIDE LEVEL 28 MEQ/L (21-32); CHLORIDE LEVEL 109 MEQ/L (98-107); CREATININE FOR GFR 0.45 MG/DL (0.70-1.30); GLOMERULAR FILTRATION RATE > 60.0 (>42); GLUCOSE, FASTING 128 MG/DL (70-100); MAGNESIUM LEVEL 2.1 MG/DL (1.8-2.4); POTASSIUM SERUM 3.6 MEQ/L (3.5-5.1); SODIUM LEVEL 144 MEQ/L (136-145)
[2022-02-03 06:55] LABS: ATYPICAL LYMPH 3 % (0-5); LYMPHOCYTES 9 % (16-44); NEUTROPHILS 88 % (28-66); PLATELET ESTIMATE DECREASED (NORMAL)
[2022-02-03 08:40] VITALS: BP 143/98
[2022-02-03] MEDS ORDERED: MIRALAX *UNIT DOSE* 17GM PACKET PO PRN (08:45)
[2022-02-03] MEDS ORDERED: SIMETHICONE 80MG CHEW TAB PO PRN (08:45)
[2022-02-03] MEDS: QUEtiapine FUMARATE 12.5 MG HALF-TAB PO SCH (08:49)
[2022-02-03] MEDS: HumaLOG INSULIN (NovoLOG) PER UNIT SC SCH ×4 (08:49→20:59)
[2022-02-03] MEDS: DESVENLAFAXINE ER 50 MG TABLET (PRISTIQ) PO SCH (08:49)
[2022-02-03] MEDS: POTASSIUM CHLORIDE 10MEQ SR TABLET PO SCH ×2 (08:50→21:00)
[2022-02-03] MEDS: buPROPion **XL** TABLET 150MG (WELLBUTRIN XL) PO SCH (08:50)
[2022-02-03] MEDS: OMEPRAZOLE 20MG CAP PO SCH ×2 (08:50→20:59)
[2022-02-03] MEDS: busPIRone 10 MG TAB PO SCH ×2 (08:50→21:01)
[2022-02-03] MEDS: DESMOPRESSIN ACETATE 0.1 MG TAB PO SCH ×2 (08:50→21:01)
[2022-02-03] MEDS: amLODIPine 5 MG TAB PO SCH (08:58)
[2022-02-03] MEDS: PREGABALIN 100 MG CAP (LYRICA) PO SCH ×2 (09:54→21:00)
[2022-02-03 14:00] VITALS: BP 126/89
[2022-02-03 18:00] VITALS: BP 138/86
[2022-02-03] MEDS: LEVEMIR (INSULIN DETEMIR) 1 UNITS/0.01ML SC SCH (20:58)
[2022-02-03] MEDS: MAGNESIUM OXIDE 400MG TAB (MAG-OX) PO SCH (20:58)
[2022-02-03] MEDS: QUEtiapine FUMARATE 25 MG TAB PO SCH (21:00)
[2022-02-03] MEDS: ATORVASTATIN 20 MG TAB PO SCH (21:00)
[2022-02-03] MEDS: VITAMIN D 1,000 INTERNATIONAL UNITS TABLET PO SCH (21:00)
[2022-02-03] MEDS: ENOXAPARIN 40MG/0.4ML SYRINGE (J1650 PER 10MG) SC SCH (21:00)
[2022-02-03] MEDS: clonazePAM 1 MG TAB PO SCH (21:00)
[2022-02-03] MEDS: OYSTER SHELL CALCIUM 500 MG TAB PO SCH (21:00)
[2022-02-03] MEDS: LIOTHYRONINE 25 MCG TAB PO SCH (21:01)
[2022-02-03] MEDS: ASPIRIN 81MG ENTERIC TABLET PO SCH (21:01)
[2022-02-03] MEDS: RAMELTEON 8 MG TAB (ROZEREM) PO PRN (21:01)
[2022-02-03] MEDS ORDERED: SODIUM CHLORIDE NASAL 0.65% SPRAY BTL (OCEAN) PRN (23:30)
[2022-02-04] MEDS: LEVOTHYROXINE 100MCG TABLET (0.1MG) PO SCH (05:47)
[2022-02-04 06:00] VITALS: BP 123/87
[2022-02-04] MEDS: busPIRone 10 MG TAB PO SCH ×2 (09:12→21:14)
[2022-02-04] MEDS: HumaLOG INSULIN (NovoLOG) PER UNIT SC SCH ×4 (09:12→21:14)
[2022-02-04] MEDS: POTASSIUM CHLORIDE 10MEQ SR TABLET PO SCH ×2 (09:12→21:16)
[2022-02-04] MEDS: DESVENLAFAXINE ER 50 MG TABLET (PRISTIQ) PO SCH (09:12)
[2022-02-04] MEDS: buPROPion **XL** TABLET 150MG (WELLBUTRIN XL) PO SCH (09:12)
[2022-02-04] MEDS: clonazePAM 1 MG TAB PO SCH ×2 (09:13→21:14)
[2022-02-04] MEDS: DESMOPRESSIN ACETATE 0.1 MG TAB PO SCH ×2 (09:13→21:16)
[2022-02-04] MEDS: amLODIPine 5 MG TAB PO SCH (09:13)
[2022-02-04] MEDS: QUEtiapine FUMARATE 12.5 MG HALF-TAB PO SCH (09:13)
[2022-02-04] MEDS: OMEPRAZOLE 20MG CAP PO SCH ×2 (09:13→21:15)
[2022-02-04] MEDS: PREGABALIN 100 MG CAP (LYRICA) PO SCH ×2 (09:16→21:15)
[2022-02-04] MEDS: TESTOSTERONE 1.62% TOP SCH (09:16)
[2022-02-04 12:41] LABS: HEMATOCRIT 46.1 % (42.0-52.0); HEMOGLOBIN 15.7 g/dl (13.5-17.5); MEAN CORPUSCULAR HEMOGLOBIN 30.1 pg (27.0-33.0); MEAN CORPUSCULAR HGB CONC 34.1 g/dl (32.0-36.5); MEAN CORPUSCULAR VOLUME 88.3 fl (80.0-96.0); RED BLOOD COUNT 5.22 10^6/uL (4.30-6.10); WHITE BLOOD COUNT 7.6 10^3/uL (4.0-10.0)
[2022-02-04 12:46] LABS: PLATELET COUNT, AUTOMATED 87 10^3/uL (150-450)
[2022-02-04 13:08] LABS: BLOOD UREA NITROGEN 24 MG/DL (7-18); CALCIUM LEVEL 8.9 MG/DL (8.8-10.2); CARBON DIOXIDE LEVEL 26 MEQ/L (21-32); CHLORIDE LEVEL 106 MEQ/L (98-107); CREATININE FOR GFR 0.68 MG/DL (0.70-1.30); GLOMERULAR FILTRATION RATE > 60.0 (>42); GLUCOSE, FASTING 340 MG/DL (70-100); POTASSIUM SERUM 3.9 MEQ/L (3.5-5.1); SODIUM LEVEL 142 MEQ/L (136-145)
[2022-02-04] MEDS ORDERED: NS 1,000 ML IV SCH (16:00)
[2022-02-04] MEDS: ENOXAPARIN 40MG/0.4ML SYRINGE (J1650 PER 10MG) SC SCH (21:00)
[2022-02-04] MEDS: LEVEMIR (INSULIN DETEMIR) 1 UNITS/0.01ML SC SCH (21:13)
[2022-02-04] MEDS: ASPIRIN 81MG ENTERIC TABLET PO SCH (21:15)
[2022-02-04] MEDS: VITAMIN D 1,000 INTERNATIONAL UNITS TABLET PO SCH (21:15)
[2022-02-04] MEDS: LIOTHYRONINE 25 MCG TAB PO SCH (21:15)
[2022-02-04] MEDS: MAGNESIUM OXIDE 400MG TAB (MAG-OX) PO SCH (21:15)
[2022-02-04] MEDS: OYSTER SHELL CALCIUM 500 MG TAB PO SCH (21:16)
[2022-02-04] MEDS: ATORVASTATIN 20 MG TAB PO SCH (21:16)
[2022-02-04] MEDS: QUEtiapine FUMARATE 25 MG TAB PO SCH (21:16)
[2022-02-05] MEDS: LEVOTHYROXINE 100MCG TABLET (0.1MG) PO SCH (05:24)
[2022-02-05 05:30] VITALS: BP 134/82
[2022-02-05 06:47] LABS: HEMATOCRIT 44.9 % (42.0-52.0); HEMOGLOBIN 15.3 g/dl (13.5-17.5); MEAN CORPUSCULAR HGB CONC 34.1 g/dl (32.0-36.5); PLATELET COUNT, AUTOMATED 88 10^3/uL (150-450); WHITE BLOOD COUNT 7.1 10^3/uL (4.0-10.0)
[2022-02-05 07:06] LABS: BLOOD UREA NITROGEN 22 MG/DL (7-18); CALCIUM LEVEL 8.8 MG/DL (8.8-10.2); CARBON DIOXIDE LEVEL 30 MEQ/L (21-32); CHLORIDE LEVEL 106 MEQ/L (98-107); CREATININE FOR GFR 0.47 MG/DL (0.70-1.30); GLOMERULAR FILTRATION RATE > 60.0 (>42); GLUCOSE, FASTING 191 MG/DL (70-100); SODIUM LEVEL 141 MEQ/L (136-145)
[2022-02-05] MEDS: QUEtiapine FUMARATE 12.5 MG HALF-TAB PO SCH (08:21)
[2022-02-05] MEDS: clonazePAM 1 MG TAB PO SCH ×2 (08:21→20:39)
[2022-02-05] MEDS: DESMOPRESSIN ACETATE 0.1 MG TAB PO SCH ×2 (08:22→20:39)
[2022-02-05] MEDS: PREGABALIN 100 MG CAP (LYRICA) PO SCH ×2 (08:22→20:39)
[2022-02-05] MEDS: POTASSIUM CHLORIDE 10MEQ SR TABLET PO SCH ×2 (08:22→20:41)
[2022-02-05] MEDS: buPROPion **XL** TABLET 150MG (WELLBUTRIN XL) PO SCH (08:22)
[2022-02-05] MEDS: busPIRone 10 MG TAB PO SCH ×2 (08:22→20:41)
[2022-02-05] MEDS: OMEPRAZOLE 20MG CAP PO SCH ×2 (08:23→20:39)
[2022-02-05] MEDS: TESTOSTERONE 1.62% TOP SCH (08:24)
[2022-02-05] MEDS: HumaLOG INSULIN (NovoLOG) PER UNIT SC SCH ×4 (08:25→20:38)
[2022-02-05] MEDS: amLODIPine 5 MG TAB PO SCH (08:26)
[2022-02-05] MEDS: DESVENLAFAXINE ER 50 MG TABLET (PRISTIQ) PO SCH (08:41)
[2022-02-05] MEDS: ENOXAPARIN 40MG/0.4ML SYRINGE (J1650 PER 10MG) SC SCH (19:59)
[2022-02-05] MEDS: LEVEMIR (INSULIN DETEMIR) 1 UNITS/0.01ML SC SCH (20:39)
[2022-02-05] MEDS: LIOTHYRONINE 25 MCG TAB PO SCH (20:39)
[2022-02-05] MEDS: VITAMIN D 1,000 INTERNATIONAL UNITS TABLET PO SCH (20:40)
[2022-02-05] MEDS: ATORVASTATIN 20 MG TAB PO SCH (20:41)
[2022-02-05] MEDS: OYSTER SHELL CALCIUM 500 MG TAB PO SCH (20:41)
[2022-02-05] MEDS: ASPIRIN 81MG ENTERIC TABLET PO SCH (20:41)
[2022-02-05] MEDS: MAGNESIUM OXIDE 400MG TAB (MAG-OX) PO SCH (20:42)
[2022-02-05] MEDS: QUEtiapine FUMARATE 25 MG TAB PO SCH (20:42)
[2022-02-06 05:16] VITALS: BP 145/89
[2022-02-06] MEDS: LEVOTHYROXINE 100MCG TABLET (0.1MG) PO SCH (05:18)
[2022-02-06 06:31] LABS: HEMOGLOBIN 15.3 g/dl (13.5-17.5); MEAN CORPUSCULAR HEMOGLOBIN 30.1 pg (27.0-33.0); MEAN CORPUSCULAR VOLUME 88.4 fl (80.0-96.0); RED BLOOD COUNT 5.09 10^6/uL (4.30-6.10); WHITE BLOOD COUNT 7.1 10^3/uL (4.0-10.0)
[2022-02-06 06:32] LABS: PLATELET COUNT, AUTOMATED 94 10^3/uL (150-450)
[2022-02-06 06:58] LABS: BLOOD UREA NITROGEN 23 MG/DL (7-18); CALCIUM LEVEL 8.5 MG/DL (8.8-10.2); CARBON DIOXIDE LEVEL 32 MEQ/L (21-32); CHLORIDE LEVEL 106 MEQ/L (98-107); CREATININE FOR GFR 0.62 MG/DL (0.70-1.30); GLOMERULAR FILTRATION RATE > 60.0 (>42); GLUCOSE, FASTING 212 MG/DL (70-100); SODIUM LEVEL 142 MEQ/L (136-145)
[2022-02-06] MEDS: HumaLOG INSULIN (NovoLOG) PER UNIT SC SCH ×4 (08:15→20:21)
[2022-02-06] MEDS: DESMOPRESSIN ACETATE 0.1 MG TAB PO SCH ×2 (08:16→20:24)
[2022-02-06] MEDS: busPIRone 10 MG TAB PO SCH ×2 (08:16→20:22)
[2022-02-06] MEDS: clonazePAM 1 MG TAB PO SCH ×2 (08:17→20:23)
[2022-02-06] MEDS: PREGABALIN 100 MG CAP (LYRICA) PO SCH ×2 (08:18→20:25)
[2022-02-06] MEDS: POTASSIUM CHLORIDE 10MEQ SR TABLET PO SCH ×2 (08:18→20:23)
[2022-02-06] MEDS: OMEPRAZOLE 20MG CAP PO SCH ×2 (08:19→20:22)
[2022-02-06] MEDS: amLODIPine 5 MG TAB PO SCH (08:19)
[2022-02-06] MEDS: DESVENLAFAXINE ER 50 MG TABLET (PRISTIQ) PO SCH (08:19)
[2022-02-06] MEDS: QUEtiapine FUMARATE 12.5 MG HALF-TAB PO SCH (08:19)
[2022-02-06] MEDS: buPROPion **XL** TABLET 150MG (WELLBUTRIN XL) PO SCH (08:20)
[2022-02-06] MEDS: TESTOSTERONE 1.62% TOP SCH (08:23)
[2022-02-06] MEDS: LEVEMIR (INSULIN DETEMIR) 1 UNITS/0.01ML SC SCH ×2 (11:40→20:20)
[2022-02-06] MEDS: ENOXAPARIN 40MG/0.4ML SYRINGE (J1650 PER 10MG) SC SCH (19:25)
[2022-02-06] MEDS: OYSTER SHELL CALCIUM 500 MG TAB PO SCH (20:21)
[2022-02-06] MEDS: LIOTHYRONINE 25 MCG TAB PO SCH (20:22)
[2022-02-06] MEDS: ASPIRIN 81MG ENTERIC TABLET PO SCH (20:23)
[2022-02-06] MEDS: MAGNESIUM OXIDE 400MG TAB (MAG-OX) PO SCH (20:24)
[2022-02-06] MEDS: QUEtiapine FUMARATE 25 MG TAB PO SCH (20:26)
[2022-02-06] MEDS: ATORVASTATIN 20 MG TAB PO SCH (20:26)
[2022-02-06] MEDS: VITAMIN D 1,000 INTERNATIONAL UNITS TABLET PO SCH (20:27)
[2022-02-07] MEDS: LEVOTHYROXINE 100MCG TABLET (0.1MG) PO SCH (05:16)
[2022-02-07 06:48] LABS: HEMATOCRIT 44.1 % (42.0-52.0); HEMOGLOBIN 15.2 g/dl (13.5-17.5); MEAN CORPUSCULAR HEMOGLOBIN 30.5 pg (27.0-33.0); MEAN CORPUSCULAR HGB CONC 34.5 g/dl (32.0-36.5); MEAN CORPUSCULAR VOLUME 88.6 fl (80.0-96.0); PLATELET COUNT, AUTOMATED 90 10^3/uL (150-450); RED BLOOD COUNT 4.98 10^6/uL (4.30-6.10); WHITE BLOOD COUNT 7.2 10^3/uL (4.0-10.0)
[2022-02-07 07:10] LABS: BLOOD UREA NITROGEN 27 MG/DL (7-18); CALCIUM LEVEL 8.3 MG/DL (8.8-10.2); CARBON DIOXIDE LEVEL 32 MEQ/L (21-32); CHLORIDE LEVEL 105 MEQ/L (98-107); CREATININE FOR GFR 0.55 MG/DL (0.70-1.30); GLOMERULAR FILTRATION RATE > 60.0 (>42); GLUCOSE, FASTING 150 MG/DL (70-100); POTASSIUM SERUM 3.9 MEQ/L (3.5-5.1); SODIUM LEVEL 140 MEQ/L (136-145)
[2022-02-07] MEDS: busPIRone 10 MG TAB PO SCH ×2 (08:27→20:20)
[2022-02-07] MEDS: HumaLOG INSULIN (NovoLOG) PER UNIT SC SCH ×4 (08:27→20:18)
[2022-02-07] MEDS: DESMOPRESSIN ACETATE 0.1 MG TAB PO SCH ×2 (08:28→20:21)
[2022-02-07] MEDS: clonazePAM 1 MG TAB PO SCH ×2 (08:28→20:20)
[2022-02-07] MEDS: PREGABALIN 100 MG CAP (LYRICA) PO SCH ×2 (08:29→20:20)
[2022-02-07] MEDS: POTASSIUM CHLORIDE 10MEQ SR TABLET PO SCH ×2 (08:30→20:21)
[2022-02-07] MEDS: amLODIPine 5 MG TAB PO SCH (08:30)
[2022-02-07] MEDS: buPROPion **XL** TABLET 150MG (WELLBUTRIN XL) PO SCH (08:31)
[2022-02-07] MEDS: DESVENLAFAXINE ER 50 MG TABLET (PRISTIQ) PO SCH (08:31)
[2022-02-07] MEDS: OMEPRAZOLE 20MG CAP PO SCH ×2 (08:31→20:19)
[2022-02-07] MEDS: QUEtiapine FUMARATE 12.5 MG HALF-TAB PO SCH (08:31)
[2022-02-07] MEDS: LEVEMIR (INSULIN DETEMIR) 1 UNITS/0.01ML SC SCH ×2 (08:32→20:18)
[2022-02-07] MEDS: TESTOSTERONE 1.62% TOP SCH (08:33)
[2022-02-07] MEDS: ENOXAPARIN 40MG/0.4ML SYRINGE (J1650 PER 10MG) SC SCH (19:22)
[2022-02-07] MEDS: OYSTER SHELL CALCIUM 500 MG TAB PO SCH (20:20)
[2022-02-07] MEDS: LIOTHYRONINE 25 MCG TAB PO SCH (20:20)
[2022-02-07] MEDS: VITAMIN D 1,000 INTERNATIONAL UNITS TABLET PO SCH (20:21)
[2022-02-07] MEDS: QUEtiapine FUMARATE 25 MG TAB PO SCH (20:21)
[2022-02-07] MEDS: ASPIRIN 81MG ENTERIC TABLET PO SCH (20:21)
[2022-02-07] MEDS: ATORVASTATIN 20 MG TAB PO SCH (20:21)
[2022-02-07] MEDS: MAGNESIUM OXIDE 400MG TAB (MAG-OX) PO SCH (20:21)
[2022-02-08] MEDS: LEVOTHYROXINE 100MCG TABLET (0.1MG) PO SCH (05:26)
[2022-02-08 06:00] VITALS: BP 146/94
[2022-02-08 07:51] LABS: HEMATOCRIT 44.6 % (42.0-52.0); HEMOGLOBIN 15.7 g/dl (13.5-17.5); MEAN CORPUSCULAR HGB CONC 35.2 g/dl (32.0-36.5); MEAN CORPUSCULAR VOLUME 88.1 fl (80.0-96.0); RED BLOOD COUNT 5.06 10^6/uL (4.30-6.10); WHITE BLOOD COUNT 7.1 10^3/uL (4.0-10.0)
[2022-02-08 07:55] LABS: PLATELET COUNT, AUTOMATED 93 10^3/uL (150-450)
[2022-02-08 08:14] LABS: BLOOD UREA NITROGEN 22 MG/DL (7-18); CALCIUM LEVEL 8.9 MG/DL (8.8-10.2); CARBON DIOXIDE LEVEL 31 MEQ/L (21-32); CHLORIDE LEVEL 106 MEQ/L (98-107); CREATININE FOR GFR 0.42 MG/DL (0.70-1.30); GLOMERULAR FILTRATION RATE > 60.0 (>42); GLUCOSE, FASTING 140 MG/DL (70-100); POTASSIUM SERUM 3.8 MEQ/L (3.5-5.1); SODIUM LEVEL 142 MEQ/L (136-145)
[2022-02-08] MEDS: clonazePAM 1 MG TAB PO SCH ×2 (09:14→20:46)
[2022-02-08] MEDS: buPROPion **XL** TABLET 150MG (WELLBUTRIN XL) PO SCH (09:14)
[2022-02-08] MEDS: QUEtiapine FUMARATE 12.5 MG HALF-TAB PO SCH (09:14)
[2022-02-08] MEDS: DESMOPRESSIN ACETATE 0.1 MG TAB PO SCH ×2 (09:14→20:44)
[2022-02-08] MEDS: PREGABALIN 100 MG CAP (LYRICA) PO SCH ×2 (09:15→20:45)
[2022-02-08] MEDS: POTASSIUM CHLORIDE 10MEQ SR TABLET PO SCH ×2 (09:15→20:45)
[2022-02-08] MEDS: HumaLOG INSULIN (NovoLOG) PER UNIT SC SCH ×4 (09:15→20:23)
[2022-02-08] MEDS: OMEPRAZOLE 20MG CAP PO SCH ×2 (09:15→20:45)
[2022-02-08] MEDS: DESVENLAFAXINE ER 50 MG TABLET (PRISTIQ) PO SCH (09:15)
[2022-02-08] MEDS: busPIRone 10 MG TAB PO SCH ×2 (09:15→20:44)
[2022-02-08] MEDS: LEVEMIR (INSULIN DETEMIR) 1 UNITS/0.01ML SC SCH ×2 (09:16→20:43)
[2022-02-08] MEDS: amLODIPine 5 MG TAB PO SCH (09:17)
[2022-02-08] MEDS: TESTOSTERONE 1.62% TOP SCH (09:17)
[2022-02-08] MEDS: ENOXAPARIN 40MG/0.4ML SYRINGE (J1650 PER 10MG) SC SCH (20:07)
[2022-02-08] MEDS: OYSTER SHELL CALCIUM 500 MG TAB PO SCH (20:44)
[2022-02-08] MEDS: VITAMIN D 1,000 INTERNATIONAL UNITS TABLET PO SCH (20:44)
[2022-02-08] MEDS: MAGNESIUM OXIDE 400MG TAB (MAG-OX) PO SCH (20:44)
[2022-02-08] MEDS: ASPIRIN 81MG ENTERIC TABLET PO SCH (20:45)
[2022-02-08] MEDS: QUEtiapine FUMARATE 25 MG TAB PO SCH (20:45)
[2022-02-08] MEDS: ATORVASTATIN 20 MG TAB PO SCH (20:45)
[2022-02-08] MEDS: LIOTHYRONINE 25 MCG TAB PO SCH (20:45)
[2022-02-09] MEDS: LEVOTHYROXINE 100MCG TABLET (0.1MG) PO SCH (05:23)
[2022-02-09 05:38] VITALS: BP 152/94
[2022-02-09 07:58] LABS: HEMATOCRIT 45.5 % (42.0-52.0); HEMOGLOBIN 15.5 g/dl (13.5-17.5); MEAN CORPUSCULAR HGB CONC 34.1 g/dl (32.0-36.5); MEAN CORPUSCULAR VOLUME 88.2 fl (80.0-96.0); RED BLOOD COUNT 5.16 10^6/uL (4.30-6.10); WHITE BLOOD COUNT 6.9 10^3/uL (4.0-10.0)
[2022-02-09 07:59] LABS: PLATELET COUNT, AUTOMATED 97 10^3/uL (150-450)
[2022-02-09 08:17] LABS: BLOOD UREA NITROGEN 25 MG/DL (7-18); CALCIUM LEVEL 9.1 MG/DL (8.8-10.2); CARBON DIOXIDE LEVEL 30 MEQ/L (21-32); CHLORIDE LEVEL 106 MEQ/L (98-107); CREATININE FOR GFR 0.55 MG/DL (0.70-1.30); GLOMERULAR FILTRATION RATE > 60.0 (>42); GLUCOSE, FASTING 203 MG/DL (70-100); POTASSIUM SERUM 4.1 MEQ/L (3.5-5.1); SODIUM LEVEL 141 MEQ/L (136-145)
[2022-02-09] MEDS: QUEtiapine FUMARATE 12.5 MG HALF-TAB PO SCH (08:49)
[2022-02-09] MEDS: clonazePAM 1 MG TAB PO SCH (08:49)
[2022-02-09] MEDS: OMEPRAZOLE 20MG CAP PO SCH (08:49)
[2022-02-09] MEDS: buPROPion **XL** TABLET 150MG (WELLBUTRIN XL) PO SCH (08:49)
[2022-02-09] MEDS: DESMOPRESSIN ACETATE 0.1 MG TAB PO SCH (08:50)
[2022-02-09] MEDS: busPIRone 10 MG TAB PO SCH (08:50)
[2022-02-09] MEDS: POTASSIUM CHLORIDE 10MEQ SR TABLET PO SCH (08:50)
[2022-02-09] MEDS: DESVENLAFAXINE ER 50 MG TABLET (PRISTIQ) PO SCH (08:50)
[2022-02-09] MEDS: PREGABALIN 100 MG CAP (LYRICA) PO SCH (08:50)
[2022-02-09] MEDS: HumaLOG INSULIN (NovoLOG) PER UNIT SC SCH ×2 (08:51→12:18)
[2022-02-09] MEDS: LEVEMIR (INSULIN DETEMIR) 1 UNITS/0.01ML SC SCH (08:51)
[2022-02-09] MEDS: TESTOSTERONE 1.62% TOP SCH (08:52)
[2022-02-09 08:54] VITALS: BP 136/90
[2022-02-09] MEDS: amLODIPine 5 MG TAB PO SCH (08:54)
[2022-02-09] MEDS ORDERED: INSUDET SC (09:07)
[2022-02-09] MEDS ORDERED: LEVE1INJ5 SC (12:32)
== END 2022-02-09 13:32 | disposition home health service (06) | DRG 556 ==
LOC: EDBD 08:59 → M ED 08:59 → M ED INP 14:30 → ENRESERV 16:03 → M MSPAV 17:36
PROVIDERS: ADMIT Internal Medicine; ATTEND General Practice
DX: M62.81 Muscle weakness (generalized) (principal); E23.2 Diabetes insipidus; D69.6 Thrombocytopenia, unspecified; K21.9 Gastro-esophageal reflux disease without esophagitis; F32.A Depression, unspecified; F41.9 Anxiety disorder, unspecified; I12.9 Hypertensive chronic kidney disease with stage 1 through stage 4 chronic kidney disease, or unspecified chronic kidney disease; E78.5 Hyperlipidemia, unspecified; R33.9 Retention of urine, unspecified; E09.65 Drug or chemical induced diabetes mellitus with hyperglycemia; D35.2 Benign neoplasm of pituitary gland; H54.8 Legal blindness, as defined in USA; N18.30 Chronic kidney disease, stage 3 unspecified; Z79.899 Other long term (current) drug therapy; E03.9 Hypothyroidism, unspecified; Z66 Do not resuscitate; Z79.52 Long term (current) use of systemic steroids; Z88.0 Allergy status to penicillin; Z92.21 Personal history of antineoplastic chemotherapy; Z92.3 Personal history of irradiation

== ENCOUNTER → 2022-02-17 | Outpatient (REF) | payer OTHER ==
[~2022-02-17] MED LIST changes: +INSUDET SC; +LEVE1INJ5 SC; +MELA5TAB21 PO; +OYST1TAB PO
[2022-02-17 16:50] LABS: BLOOD UREA NITROGEN 21 MG/DL (7-18); CALCIUM LEVEL 9.3 MG/DL (8.8-10.2); CARBON DIOXIDE LEVEL 29 MEQ/L (21-32); CHLORIDE LEVEL 100 MEQ/L (98-107); CREATININE FOR GFR 0.78 MG/DL (0.70-1.30); FREE T4 1.14 NG/DL (0.76-1.46); GLOMERULAR FILTRATION RATE > 60.0 (>42); GLUCOSE, FASTING 299 MG/DL (70-100); POTASSIUM SERUM 4.4 MEQ/L (3.5-5.1); SODIUM LEVEL 139 MEQ/L (136-145)
[2022-02-17 17:44] LABS: OSMOLALITY SERUM 300 MOSM/KG (280-301)
== END ==
LOC: M SHH 16:07
PROVIDERS: ATTEND Internal Medicine Endocrinology, Diabetes & Metabolism
DX: D49.7 Neoplasm of unspecified behavior of endocrine glands and other parts of nervous system (principal); E03.9 Hypothyroidism, unspecified

== ENCOUNTER → 2022-03-09 | Outpatient (REF) | payer OTHER ==
[2022-03-09 15:44] LABS: OSMOLALITY SERUM 301 MOSM/KG (280-301)
[2022-03-09 15:50] LABS: BLOOD UREA NITROGEN 24 MG/DL (7-18); CALCIUM LEVEL 8.2 MG/DL (8.8-10.2); CARBON DIOXIDE LEVEL 31 MEQ/L (21-32); CHLORIDE LEVEL 103 MEQ/L (98-107); CREATININE FOR GFR 0.73 MG/DL (0.70-1.30); FREE T4 1.17 NG/DL (0.76-1.46); GLOMERULAR FILTRATION RATE > 60.0 (>42); GLUCOSE, FASTING 301 MG/DL (70-100); POTASSIUM SERUM 4.1 MEQ/L (3.5-5.1); SODIUM LEVEL 138 MEQ/L (136-145)
== END ==
LOC: M SHH 14:53
PROVIDERS: ATTEND Internal Medicine Endocrinology, Diabetes & Metabolism
DX: D49.7 Neoplasm of unspecified behavior of endocrine glands and other parts of nervous system (principal); E03.9 Hypothyroidism, unspecified

== ENCOUNTER → 2022-03-23 | Outpatient (REF) | payer OTHER ==
[2022-03-23 16:14] LABS: HEMATOCRIT 48.3 % (42.0-52.0); HEMOGLOBIN 15.5 g/dl (13.5-17.5); MEAN CORPUSCULAR HEMOGLOBIN 29.1 pg (27.0-33.0); MEAN CORPUSCULAR HGB CONC 32.1 g/dl (32.0-36.5); MEAN CORPUSCULAR VOLUME 90.8 fl (80.0-96.0); PLATELET COUNT, AUTOMATED 144 10^3/uL (150-450); RED BLOOD COUNT 5.32 10^6/uL (4.30-6.10)
[2022-03-23 18:11] LABS: ANISOCYTOSIS 1+; ATYPICAL LYMPH 2 % (0-5); LYMPHOCYTES 4 % (16-44); METAMYELOCYTES 1 % (0-0); MONOCYTES 1 % (0-5); NEUTROPHILS 88 % (28-66); PROMYELOCYTES 1 % (0-0)
[2022-03-23 18:12] LABS: PLATELET ESTIMATE DECREASED (NORMAL)
== END ==
LOC: M SHH 15:16
PROVIDERS: ATTEND Family Medicine
DX: M62.81 Muscle weakness (generalized) (principal)

== ENCOUNTER → 2022-03-23 | Outpatient (REF) | payer OTHER ==
[2022-03-23 16:44] LABS: OSMOLALITY SERUM 300 MOSM/KG (280-301)
[2022-03-23 17:23] LABS: BLOOD UREA NITROGEN 20 MG/DL (7-18); CALCIUM LEVEL 8.8 MG/DL (8.8-10.2); CARBON DIOXIDE LEVEL 32 MEQ/L (21-32); CHLORIDE LEVEL 105 MEQ/L (98-107); CREATININE FOR GFR 0.55 MG/DL (0.70-1.30); GLOMERULAR FILTRATION RATE > 60.0 (>42); GLUCOSE, FASTING 221 MG/DL (70-100); POTASSIUM SERUM 2.9 MEQ/L (3.5-5.1); SODIUM LEVEL 144 MEQ/L (136-145)
== END ==
LOC: M SHH 14:16 → M LAB REF 14:16
PROVIDERS: ATTEND Internal Medicine Endocrinology, Diabetes & Metabolism
DX: D49.7 Neoplasm of unspecified behavior of endocrine glands and other parts of nervous system (principal); E03.9 Hypothyroidism, unspecified